=== PATIENT | male | born 1955 | race Caucasian/White ===

== ENCOUNTER 2022-05-09 06:28 | Outpatient (REF) | payer MEDICARE, SELFPAY ==
[2022-05-09 06:43] LABS: Hematocrit 27.7 % (42.0-52.0); Mean Corpuscular HGB Conc 32.5 g/dl (31.0-36.0); Mean Corpuscular Hemoglobin 31.7 pg (27.0-33.0); Mean Corpuscular Volume 97.5 fL (80.0-98.0); Mean Platelet Volume 9.9 fL (9.4-12.4); Platelet Count 256 X10*3/uL (160-400); Red Blood Count 2.84 X10*6/uL (4.60-5.80); Red Cell Distribution Width 16.4 % (11.0-16.0); White Blood Count 23.4 X10*3/uL (4.8-10.8)
[2022-05-09 07:34] LABS: Anion Gap 18 (12-20); Blood Urea Nitrogen 30 mg/dL (9-16); Calcium 8.2 mg/dL (8.4-10.2); Carbon Dioxide 24 mmol/L (22-29); Chloride 91 mmol/L (96-108); Estimated Glomerular Filt Rate 18; Sodium 130 mmol/L (135-145)
[2022-05-09 07:43] LABS: Glucose Random 28 mg/dL (60-115)
== END 2022-05-09 06:29 | disposition home or self-care (01) ==
LOC: HO.MMNH1L 06:28
PROVIDERS: Visit Provider Family Medicine
DX: I48.91 Unspecified atrial fibrillation (principal)
CPT/HCPCS: 36415; 80048; 85027

== ENCOUNTER 2022-05-23 07:29 | Outpatient (REF) | payer MEDICARE, SELFPAY | END 2022-05-23 07:30 | disposition home or self-care (01) | LOC: HO.MMNH1L 07:29 | PROVIDERS: Visit Provider Family Medicine | DX: Z13.89 Encounter for screening for other disorder (principal) ==

== ENCOUNTER 2022-07-11 05:19 | Inpatient (IN) | payer MEDICARE, OTHER, SELFPAY ==
[2022-07-11] VITALS (7 sets, daily range): BP systolic 82–116; BP diastolic 56–67; PULSE 100–119; RESP 13–20; TEMP 35.8–36.5; O2SAT 94–100; BMI 23.7
--- NOTE | 2022-07-11 | ECG_ITS ---
Test Reason : CHEST PAIN Blood Pressure : / mmHG Vent. Rate : 117 BPM Atrial Rate : 000 BPM P-R Int : 000 ms QRS Dur : 100 ms QT Int : 362 ms P-R-T Axes : 000 030 246 degrees QTc Int : 504 ms Atrial fibrillation with rapid ventricular response Low voltage QRS Intra-ventricular conduction delay Nonspecific ST and T wave abnormality Abnormal ECG No previous ECGs available Referred By: Generic ED Physician Electronically Signed By:CONSUELO FULTON MD
--- NOTE | ~2022-07-11 | CT_ITS ---
EXAMINATION: CT ABDOMEN AND PELVIS WITHOUT CONTRAST CLINICAL INFORMATION: Ostomy malfunction COMPARISON: None TECHNIQUE: Multidetector volumetric imaging was performed from the superior aspect of the liver through the pubic symphysis. Sagittal and coronal reformatted images were obtained on the technologist's workstation. This CT examination was performed using dose optimization techniques as appropriate, variously including the following: *Automated exposure control *Adjustment of mA and/or kV according to patient size (this includes techniques or standardized protocols for targeted exams where dose is matched to indication/reason for exam; i.e. extremities or head) *Use of iterative reconstruction technique DLP: 873 mGy-cm FINDINGS: Visualized lung bases demonstrate trace bilateral pleural effusions with overlying atelectasis. Cardiac lead partially visualized. The liver is normal in size but demonstrates diffusely decreased attenuation. Several tiny gallstones are are noted dependently within an otherwise unremarkable appearing gallbladder. The pancreas, spleen and adrenal glands are unremarkable. Symmetrically sized kidneys. No renal calculi or hydronephrosis bilaterally. Subcentimeter cyst of the right kidney. Mildly distended and debris-filled stomach. Loops of small bowel are normal in caliber. There is a moderate stool burden within the proximal and mid colon. There is an ostomy noted within the left lower abdomen which is unremarkable in appearance. There is no CT evidence to suggest an obstructive picture. The distal colon is decompressed. There is some mild diverticular changes of the sigmoid colon without CT evidence to suggest active diverticulitis. Mild stool burden within the rectal vault. Normal caliber abdominal aorta which demonstrates moderate to severe atherosclerotic disease. Diffuse subcutaneous anasarca. The bladder is decompressed around a Cote catheter and therefore not accurately evaluated. Trace amount of free pelvic fluid, nonspecific. No inguinal lymphadenopathy. Diffuse osteopenia. Moderate degenerative changes of the spine. CT/CT abdomen pelvis wo IV con IMPRESSION: -Normal caliber loops of small bowel with a moderate stool burden noted within the proximal and mid colon. Ostomy noted within the left lower abdomen. No CT evidence to suggest an obstructive picture. -Diffusely decreased liver attenuation suggesting hepatic steatosis. -Cholelithiasis. Fleischner guidelines were followed.
--- NOTE | ~2022-07-11 | XR_ITS ---
EXAMINATION: XR CHEST CLINICAL INFORMATION: Shortness of breath COMPARISON: Chest x-ray 07/11/2022 TECHNIQUE: Frontal view of the chest was obtained. FINDINGS: Right IJ central venous catheter tip terminates in the distal SVC. A right IJ dual-lumen catheter terminates in the proximal right atrium, both unchanged. Mild blunting of the costophrenic angles consistent with small pleural effusions, right minimally larger than left. No dense airspace consolidation. No pneumothorax. Unchanged cardiomediastinal silhouette. Prominence of the pulmonary vascular markings consistent with pulmonary vascular congestion possible early/mild interstitial edema. Intact sternal wires and left-sided single chamber pacer/AICD with lead tip projecting over the right ventricle. No acute osseous injury. XR/XR chest 1V IMPRESSION: 1. Pulmonary vascular congestion/possible mild interstitial edema. 2. Small bilateral pleural effusions, right slightly larger than left. 3. No dense airspace consolidation.
--- NOTE | ~2022-07-11 | XR_ITS ---
EXAMINATION: XR CHEST CLINICAL INFORMATION: Status post OG tube placement COMPARISON: Chest x-ray 07/24/2022 TECHNIQUE: Frontal view of the chest was obtained. FINDINGS: Endotracheal tube tip terminates approximately 4.2 cm above the jarred. Right IJ dual-lumen catheter tip terminates in the proximal right atrium. Right IJ central venous catheter is followed into the distal SVC at the cavoatrial junction. Enteric tube extends below the diaphragm, coiled in the gastric fundus. The distal tip is not included in the [id number]. External defibrillator pads overlie the left lower hemithorax. Lower lateral left hemithorax is clipped from the [id number]. No airspace consolidation or pneumothorax. Minimal right basilar pleural thickening versus trace effusion. Small amount of right fissural fluid. Unchanged cardiomediastinal silhouette. Status post median sternotomy. Intact sternal wires. No evidence of pulmonary edema. Left sided AICD with lead tip projecting in the right ventricle. No acute osseous injury. XR/XR chest 1V IMPRESSION: 1. Endotracheal tube tip terminates 4.2 cm above the jarred. 2. Enteric tube extends below the diaphragm, distal tip not included in the [id number]. 3. 2 right IJ lines, as above. 4. Small right pleural effusion versus pleural thickening.
--- NOTE | ~2022-07-11 | CT_ITS ---
EXAMINATION: CT CHEST, ABDOMEN AND PELVIS WITH CONTRAST CLINICAL INFORMATION: Hypoxia status post CPR. Gastric distention with elevated lactate. COMPARISON: CT abdomen of July 14, 2022 TECHNIQUE: Multidetector volumetric imaging was performed from the thoracic inlet through the pubic symphysis following administration of oral and intravenous contrast of 85 mL of Omnipaque 350 intravenous contrast. Sagittal and coronal reformatted images were obtained on the technologist workstation. DLP: 1260.62 mGy-cm. FINDINGS: CHEST: Lungs: Endotracheal tube seen in place. Central airways are patent. Bronchial wall thickening is seen within the right lower lobe. No bronchiectasis. There is some bibasilar lower lobe disease likely related to dependent atelectasis. Calcified granuloma is present. Focus of nonspecific groundglass opacity seen within the right upper lobe there is a 6 mm subpleural density seen within the right lower lobe on image [address] series #7. There is some changes of paraseptal emphysema within the lung apices. No pneumothorax. Mediastinum: Endotracheal tube seen in place. Right internal jugular central venous catheter within the right atrium. Pacemaker lead in place. Mild coronary artery calcifications present. Heart normal size. No pericardial effusion identified. No septal bowing is noted. No mediastinal or hilar lymphadenopathy. There is mild hazy density about the. Vascular space without evidence of major vessel injury. No thoracic aortic aneurysm or dissection. Arch vessels appear unremarkable. Pleura: There are small bilateral pleural effusions. Chest Wall/Axilla: Anasarca is present. No axillary lymphadenopathy is appreciated. Status post median sternotomy without sternal fracture appreciated. Left-sided pacemaker powerpack in place.. There are rib fractures present which will be described under the osseous structures segment. ABDOMEN/PELVIS: Liver, Gallbladder, Biliary Tree: The liver is normal in size, shape, and attenuation. No focal hepatic lesion or biliary ductal dilatation is present. Cholelithiasis is present. The gallbladder is distended. No pericholecystic fluid is appreciated. Pancreas: Unremarkable. No definite mass or significant peripancreatic inflammatory change. Spleen: Artifact present. I cannot rule out splenic laceration due to the artifact being present. There is fat streaking seen with small amount of free fluid seen along the left lateral conal fascia. Adrenal Glands: Unremarkable. Kidneys and Ureters: No hydronephrosis evident. No cortical thinning. No calculi are seen. Right renal cysts are present. No definite ureteral abnormalities appreciated. Bladder: Urinary bladder is decompressed with Cote catheter in place. Gastrointestinal Tract: The stomach is very distended. No free air is identified. There is a small amount of free fluid seen as well as stranding was then mesenteric and retroperitoneal fat. Left lower quadrant ostomy appears unremarkable. Appendix is not appreciated. Abdominal Wall: Left lower quadrant ostomy. Lymph Nodes: No lymphadenopathy appreciated. Vascular: There is moderate aortoiliac calcified plaque present. No abdominal aortic aneurysm. Portal vein patent. Pelvic Viscera: There is some free fluid. No abnormal pelvic mass is appreciated. Osseous Structures: There is osteopenia visualized bones. There are regions of diminished bony density with lytic appearance but no bony destruction which may be related to the osteopenia within the femoral heads bilaterally. There are changes of enthesopathy present. There is ankylosis of the sacroiliac joints bilaterally. There is degenerative disc disease at the L5-S1 level. There are nondisplaced fractures seen involving anterior aspect of the left fourth rib, left sixth rib, left seventh rib, separation of cartilage at the left eighth rib level, and anterior right seventh rib. There is some regions of mild bony density about the dorsal aspect of some ribs left greater than right which may be related to osteopenia. Infiltrative process of other etiology not excluded. No periosteal new bone formation is identified. CT/CT abdomen pelvis w IV con IMPRESSION: Small bilateral pleural effusions with multiple rib fractures as described above. Anasarca and diffuse fat streaking within the mesentery and retroperitoneal fat as well. Cholelithiasis without evidence of acute cholecystitis. Poorly evaluated spleen and splenic laceration is not excluded. Ultrasound would be of help in further evaluation of this. Small amount of free fluid within the abdomen and pelvis. Old granulomatous disease. 6 mm right lower lobe nodule. According to the UPDATED 2017 Fleischner Society recommendations, the advised follow-up imaging for a single 6-8 mm solid nodule is: LOW RISK PATIENT: CT at 6-12 months, then consider CT at 18-24 months. HIGH RISK PATIENT: CT at 6-12 months, then at 18-24 months.
--- NOTE | ~2022-07-11 | XR_ITS ---
EXAMINATION: XR CHEST CLINICAL INFORMATION: chest pain COMPARISON: None TECHNIQUE: Frontal view of the chest was obtained. FINDINGS: Right IJ dual-lumen dialysis catheter tip terminates in the right atrium. Right IJ central venous catheter tip terminates over the cavoatrial junction. Left pectoral AICD lead tip terminates over the right ventricle. Sternal wires and surgical clips overlie the cardiac mediastinal silhouette. EKG leads overlie the chest. Chronic silhouette is at the upper limits of normal in size. Pulmonary vasculature is normal. No consolidation, pneumothorax, or pleural effusion. No acute osseous findings. XR/XR chest 1V IMPRESSION: 1. No acute pulmonary disease. 2. Support lines as above.
--- NOTE | ~2022-07-11 | CT_ITS ---
EXAMINATION: CT CHEST, ABDOMEN AND PELVIS WITHOUT CONTRAST CLINICAL INFORMATION: Question of intra-abdominal hemorrhage and pneumonia COMPARISON: 07/27/2022 chest radiograph, CT chest abdomen pelvis 07/24/2020 TECHNIQUE: Multidetector volumetric imaging was performed from the thoracic inlet through the pubic symphysis . Sagittal and coronal reformatted images were obtained on the technologist's workstation. This CT examination was performed using dose optimization techniques as appropriate, variously including the following: *Automated exposure control *Adjustment of mA and/or kV according to patient size (this includes techniques or standardized protocols for targeted exams where dose is matched to indication/reason for exam; i.e. extremities or head) *Use of iterative reconstruction technique DLP: 1211 mGy-cm FINDINGS: CHEST: Lungs and Pleura: No pneumothorax is seen. Bibasilar patchy densities are seen in [id number]-type pattern along with Tree-in-bud opacities present in the right upper lobe posteriorly consistent with inflammatory disease. All of the above-mentioned changes are new when compared to the 07/24/2022 CT scan. Again noted is a tiny right pleural effusion, decreased since prior, and a trace left pleural effusion. Mild thickening in the right major fissure. A calcified granuloma is present in the left upper lobe. Mediastinum: The heart is enlarged. A single lead left chest wall pacemaker is present. No mediastinal or hilar lymphadenopathy is seen. Significant coronary calcifications are present. No pericardial effusion. ET tube position well above the jarred. Right IJ catheter with tip at SVC/RA junction. Chest Wall/Axilla: Status post median sternotomy ABDOMEN/PELVIS: Liver, Gallbladder, Biliary Tree: The liver is normal in size, shape, and attenuation. No focal hepatic lesion or biliary ductal dilatation is present. Cholelithiasis is present. The gallbladder is distended. No pericholecystic fluid is appreciated. Pancreas: Unremarkable. No definite mass or significant peripancreatic inflammatory change. Spleen: Significant artifact obscures portion of the spleen. No abnormality is seen. Adrenal Glands: Unremarkable. Kidneys and Ureters: No hydronephrosis evident. No cortical thinning. No calculi are seen. Right renal cysts are present. No ureteral abnormalities appreciated. Bladder: Urinary bladder is decompressed with Cote catheter in place. Gastrointestinal Tract: The stomach is very distended. No free air is identified. There is a small amount of free fluid seen as well as stranding was then mesenteric and retroperitoneal fat. Left lower quadrant ostomy appears unremarkable. Appendix is not appreciated. Abdominal Wall: Left lower quadrant ostomy. Lymph Nodes: No lymphadenopathy appreciated. Vascular: There is moderate aortoiliac calcified plaque present. No abdominal aortic aneurysm. Portal vein patent. Pelvic Viscera: There is significant increased pelvic fluid compared with the prior study. The fluid measures water density and there is no evidence of intra-abdominal/intrapelvic hemorrhage. No abnormal pelvic mass is appreciated. Osseous Structures: Again seen is osteopenia and degenerative changes. Again seen are left-sided rib fractures previously described CT/CT abdomen pelvis wo IV con IMPRESSION: New bilateral lower lobe infiltrates along with tree-in-bud inflammatory opacities in the right upper lobe. Cholelithiasis without evidence of acute cholecystitis. Increase in amount of free fluid within the abdomen and pelvis.
--- NOTE | ~2022-07-11 | XR_ITS ---
EXAMINATION: XR CHEST CLINICAL INFORMATION: Endotracheal tube. COMPARISON: Chest radiograph 07/27/2022 TECHNIQUE: Frontal view of the chest was obtained. FINDINGS: An endotracheal tube terminates 4 cm superior to the jarred. Enteric tube courses within the stomach beyond the inferior margin of the [id number]. A right internal jugular dual lumen catheter terminates in projection with the right atrium. A left subclavian catheter terminates in the region of the superior vena cava. A left pectoral pacer is noted. Multiple unfractured median sternotomy wires visualized. The heart size is normal. Mild blunting of left costophrenic sulcus. No pneumothoraces. Low lung volumes are identified. XR/XR chest 1V IMPRESSION: *Radiographically satisfactory configuration of multiple lines and tubes. *Trace left pleural effusion.
--- NOTE | ~2022-07-11 | XR_ITS ---
EXAMINATION: XR CHEST CLINICAL INFORMATION: Central line placement confirmation. COMPARISON: July 24, 2022. TECHNIQUE: Portable AP view of the chest was obtained. XR/XR chest 1V FINDINGS/IMPRESSION: The study is limited by portable technique, low lung volumes, and overlying leads. The tip of a new left internal jugular presumed central venous line projects over the expected location of the superior vena cava. Otherwise, there has been no significant radiographic change compared with one day prior. No pneumothorax or effusion is seen. No acute infiltrate is noted. Previously seen lines, tubes, and hardware appear unchanged.
--- NOTE | ~2022-07-11 | XR_ITS ---
EXAMINATION: AP PORTABLE CHEST AND KUB. CLINICAL INFORMATION: CHEST PAIN WITH NAUSEA VOMITING AND CONSTIPATION. COMPARISON: July 20, 2022 chest and abdomen of July 20, 2022 TECHNIQUE: AP portable chest and KUB. FINDINGS: AP portable view of the chest does not demonstrate any evidence of acute parenchymal disease, pneumothorax, or pleural effusion. There is pleural thickening seen about the right lateral chest wall. A right subclavian central venous catheter is seen with its tip in the distal superior vena cava. A large bore dialysis right internal jugular catheter seen with its tip within the upper right atrium. Pacemaker is seen in place. Patient status post median sternotomy and CABG. Heart normal size. No evidence of pulmonary edema. Film of the abdomen demonstrates a large amount of stool within the right and transverse colon. Gas is noted within the rectum. No pneumatosis intestinalis is seen. No definite dilated loops of small bowel evident. There are changes of enthesopathy about the pelvis. Prominent splenic artery calcifications are noted. XR/XR chest 1V IMPRESSION: No acute disease within the chest. Large amount of stool within the right and transverse colon.
--- NOTE | ~2022-07-11 | XR_ITS ---
EXAMINATION: XR ABDOMEN KUB CLINICAL INDICATION: Vomiting COMPARISON: CT abdomen and pelvis 07/14/2022 TECHNIQUE: AP view of the abdomen. FINDINGS: Marked gaseous distention of the stomach. No other dilated air-filled bowel loops. Moderate to large amount of formed stool located in the right colon. Small amount of gas in the region of the rectum. No gross large free air on this limited supine exam. No appreciable bowel wall thickening. No pneumatosis or portal venous gas. Catheter projects over the low pelvis. Patient is somewhat rotated. No acute osseous injury. Mild bilateral hip joint osteoarthritis and disc degenerative changes in the lumbar spine are seen. Left lower quadrant ostomy. XR/XR abdomen 1V IMPRESSION: 1. Marked gaseous distention of the stomach. Consider NG tube decompression as clinically indicated. 2. No other dilated air-filled bowel loops. 3. Moderate to large amount of formed stool in the right colon.
--- NOTE | ~2022-07-11 | XR_ITS ---
EXAMINATION: XR CHEST CLINICAL INFORMATION: Feed tube placement. COMPARISON: Chest radiograph 07/25/2022. TECHNIQUE: Frontal view of the chest was obtained. FINDINGS: An enteric tube terminates in the stomach. Single lead left-sided pacer/AICD projecting over the right ventricle. Large bore right CVC terminates in the proximal right atrium. Left-sided CVC terminates in the cavoatrial junction. Sternal wires are noted. EKG wires overlie the chest. The endotracheal tube terminates at 3 cm above the jarred. Included portions of the bowel in the upper abdomen with a nonobstructive bowel gas pattern. Small left-sided pleural fluid, new compared to 07/25/2022. XR/XR chest 1V IMPRESSION: 1. Enteric tube terminating in the stomach. 2. Small left-sided pleural fluid, new compared to 07/25/2022.
--- NOTE | ~2022-07-11 | US_ITS ---
EXAMINATION: US VENOUS ULTRASOUND WITH DOPPLER LOWER EXTREMITY, BILATERAL CLINICAL INFORMATION: Rule out DVT/edema COMPARISON: None TECHNIQUE: Ultrasound of the deep veins is performed from the hip to the calf with compression sonography and color and pulse Doppler assessment. Spectral analysis with color-flow imaging is performed. FINDINGS: RIGHT: There is normal venous compression and respiratory variation and augmented flow. The visualized common femoral vein, superficial femoral vein, profunda femoral vein, popliteal vein, and the trifurcation region shows no evidence of deep venous thrombosis. There is no significant popliteal fossa cyst. LEFT: There is normal venous compression and respiratory variation and augmented flow. The visualized common femoral vein, superficial femoral vein, profunda femoral vein, popliteal vein, and the trifurcation region shows no evidence of deep venous thrombosis. There is no significant popliteal fossa cyst. If the patient's symptoms persist, followup ultrasound in 5 days 7 days might be of value to exclude proximal propagation from a non-visualized calf vein. Extensive soft tissue swelling throughout the bilateral lower extremities. US/US venous duplex LE BI IMPRESSION: No DVT demonstrated in the bilateral lower extremities.
--- NOTE | ~2022-07-11 | XR_ITS ---
EXAMINATION: AP PORTABLE CHEST AND KUB. CLINICAL INFORMATION: CHEST PAIN WITH NAUSEA VOMITING AND CONSTIPATION. COMPARISON: July 20, 2022 chest and abdomen of July 20, 2022 TECHNIQUE: AP portable chest and KUB. FINDINGS: AP portable view of the chest does not demonstrate any evidence of acute parenchymal disease, pneumothorax, or pleural effusion. There is pleural thickening seen about the right lateral chest wall. A right subclavian central venous catheter is seen with its tip in the distal superior vena cava. A large bore dialysis right internal jugular catheter seen with its tip within the upper right atrium. Pacemaker is seen in place. Patient status post median sternotomy and CABG. Heart normal size. No evidence of pulmonary edema. Film of the abdomen demonstrates a large amount of stool within the right and transverse colon. Gas is noted within the rectum. No pneumatosis intestinalis is seen. No definite dilated loops of small bowel evident. There are changes of enthesopathy about the pelvis. Prominent splenic artery calcifications are noted. XR/XR abdomen 1V IMPRESSION: No acute disease within the chest. Large amount of stool within the right and transverse colon.
[2022-07-11 05:45] LABS: MANUAL DIFF FLAG NO
[2022-07-11 05:46] LABS: Basophils Percent Auto 0.2 % (0-2); Eosinophils Absolute Auto 0.1 X10*3/uL (0.0-0.4); Eosinophils Percent Auto 0.5 % (0-4); Hematocrit 28.9 % (42.0-52.0); Hemoglobin 9.2 g/dl (14.0-18.0); Imm Gran Abs Auto 0.08 X10*3/uL (0.00-0.03); Imm Gran Pct Auto 0.6 % (0.0-0.4); Lymphocytes Absolute Auto 0.8 X10*3/uL (1.2-4.9); Lymphocytes Percent Auto 6.1 % (20-40); Mean Corpuscular HGB Conc 31.8 g/dl (31.0-36.0); Mean Corpuscular Hemoglobin 31.1 pg (27.0-33.0); Mean Corpuscular Volume 97.6 fL (80.0-98.0); Mean Platelet Volume 9.4 fL (9.4-12.4); Monocytes Percent Auto 7.4 % (2-11); Neutrophils Absolute Auto 11.1 x10*3/uL (2.0-8.3); Neutrophils Percent Auto 85.2 % (45-73); Platelet Count 305 X10*3/uL (160-400); Red Blood Count 2.96 X10*6/uL (4.60-5.80); Red Cell Distribution Width 17.5 % (11.0-16.0)
[2022-07-11] MEDS: 0.9 % Sodium Chloride 500 ML IV ×2 (05:48→18:52)
[2022-07-11 06:02] LABS: Anion Gap 15 (12-20); Blood Urea Nitrogen 45 mg/dL (9-16); Calcium 7.2 mg/dL (8.4-10.2); Carbon Dioxide 23 mmol/L (22-29); Chloride 91 mmol/L (96-108); Creatinine Clr Calc Pharmacy 36.2; Estimated Glomerular Filt Rate 26; Glucose Random 409 mg/dL (60-115); Potassium 4.3 mmol/L (3.3-5.1); Sodium 125 mmol/L (135-145)
[2022-07-11 06:07] LABS: Troponin-I High Sensitivity 19.4 ng/L (<3.5-35.0)
--- OUTSIDE RECORDS SUMMARY | 2022-07-11 06:19 | XMS_ITS | Encounter Summary ---
:1955 Author Care Team Providers Name Role Phone Lamont Chris MD Primary Care Provider [phone] [facility] 1st Floor OTHER [phone] Reason for Visit Acute Rounding Visit Assessment and Plan 1. Pressure injury of sacral region of back Continue local care as ordered. cefazolin 2 mg iv TTS after dialysis to 06/21 vancomycin 750 mg iv TTS after dialysis to 06/21 fluconazole 400 mg TTS after dialysis to 06/21 probiotic bid oxycodone 5 mg q 6 hrs prn for pain, or 10 mg q6hr prn Wound care consult. Monitor for healing. 2. End-stage renal disease HD 3x week monitor permacath 3. Asthenia PT OT eval and treat fall precautions frequent safety checks 4. COVID-19 06/07 covid positive encourage fluids consider ivf for anorexia consider decadron for sob send to ED for decompensation Discussion Note: None recorded.Patient educational handouts: No information available. Plan of Care Reminders Provider Appointments None recorded. ? ? Lab None recorded. ? ? Referral None recorded. ? ? Procedures None recorded. ? ? Surgeries None recorded. ? ? Imaging None recorded. ? ? Medications Name Start Date ? ? fentanyl 12 mcg/hr transdermal patch ? Apply 1 patch every 72 hours by transdermal route in the morning. Notes: meds reviewed, see MAR for comp lete list Medications Administered None recorded. Vitals Height Weight BMI Blood Pressure 6 ft 6 in 202.4 lbs 23.4 kg/m2 117/67 mm[Hg] Results Lab Results None recorded. Allergies Code Code System Name Reaction Severity Onset 552520 RxNorm Bactrim ? ? ? Problems Name Status Onset Date Source ? Type 2 Diabetes Mellitus Active 04/15/2022 ? Hyperlipidemia Active 04/15/2022 ? Anemia Active 04/15/2022 ? Neuropathy Active 04/15/2022 ? Cardiomyopathy Active 04/15/2022 ? Atrial Fibrillation Active 04/15/2022 ? Chronic Kidney Disease Stage 4 Active 04/15/2022 ? End-stage Renal Disease Active 04/15/2022 ? Asthenia Active 04/15/2022 ? Coronary Arteriosclerosis Active 04/21/2022 ? Pressure Injury of Sacral Region of Back Active 022 ? Low Blood Pressure Active 04/28/2022 ? Sepsis Active 05/09/2022 ? Covid-19 Active 06/10/2022 ? Pressure Injury Stage IV Active 06/25/2022 ? Colostomy Active 06/25/2022 ? 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 Insomnia Active 06/30/2022 ? Congestive Heart Failure Active 06/30/2022 ? Procedures Notes: right permacath, CARDIAC CATHET ERIZATION 02/19/2013 CARDIAC DEFIBRILLATOR PLACEMENT 10/2013 CARDIAC DEFIBRILLATOR PLACEMENT CATARACT EXTRACTION CATARACT EXTRACTION, BILATERAL Bilateral 2017 Slick Brewer CORONARY ARTERY BYPASS GRAFT X2 vessels HERNIA REPAIR NASAL SEPTUM SURGERY Vaccine List Vaccine Type COVID-19, mRNA, LNP-S, PF, 100 mcg/0.5 m L dose (Moderna) 09/02/2020 09/30/2020 07/14/2021 Hep B, adult 01/27/2021 03/15/2021 08/05/2021 influenza, high-dose, quadrivalent 06/08/2020 08/11/2020 influenza, injectable, quadrivalent 05/24/2021 06/08/2022 pneumococcal conjugate PCV 13 07/04/2019 pneumococcal polysaccharide PPV23 10/18/2012 Tdap 10/18/2012 10/10/2020 zoster recombinant 08/11/2020 Social History Tobacco Smoking Status Former Smoker Notes: quit 200 3 Has tobacco cessation counseling N Notes: n/a as pt no longer been provided? smokes What is your code status? Full Code Do you have a medical power of Y sports broadcaster? What was the date of your most 04/21/2022 recent tobacco screening? Do you have an advanced Y directive? Do you use any illicit or N recreational drugs? [facility], has flight of stairs but now matamoros s a stair lift What is your relationship status? Notes : Was in 2001, then had new relatio nship and broke up, so not act ually . What is your level of alcohol Moderate Notes: o ne beer/day consumption? How many times per week do you 5-7 times per week consume alcohol? Legal Guardian? N Do you have an out of hospital N DNR? Do you or have you ever used any N other forms of tobacco or nicotine? Have you ever been counseled for N unhealthy alcohol use? Functional Status Unknown. Past Encounters 06/10/2022 Pressure Injury of Sacral Region of Back ; End-stage Renal Disease; Asthenia; Covid-19 Marielos Alvarez POLICY WRITER: [address] [place] [address], Ph. 06/08/2022 Asthenia; End-stage Renal Disease; Coron tad Arteriosclerosis; Type 2 Diabetes Mellitus; Chronic Osteomyelitis of Sacrum; Orthostatic Hypotension; Hyperlipidemia; Chronic Pain; Covid-19 Bethany Cabrera MD: [address] [place] [address], Ph. 06/06/2022 Pressure Injury of Sacral Region of Back ; Coronary Arteriosclerosis Marielos Alvarez POLICY WRITER: [address] [place] [address], Ph. 06/03/2022 Pressure Injury of Sacral Region of Back ; Sepsis; End-stage Renal Disease; Atrial Fibrillation; Cardiomyopathy; Hyperlipidemia; Neuropathy; Type 2 Diabetes Mellitus; Chronic Kidney Disease Stage 4; Asth enia; Anemia; Low Blood Pressure; Hooks ry Arteriosclerosis Marielos Alvarez POLICY WRITER: [address] [place] [address], Ph. History of Present Illness Note: <div>seen today for acute rounding visit-CAOx3 lying in bed, orders to be put in to get him oob 2xday minimum, he is a mckenzie lift to chair, PT aware and Elizabeth nurse central supply manager aware of his concerns regarding this, lungs clear</div>Review of Systems: ROS as noted in the HPI Review of Systems None recorded. Physical Exam ? General Adult Exam Reported By: Patient Constitutional: General Appearance: well-dev eloped. Level of Distress: NAD. Ambulation: ambulation with walker, in wheelchair; min assist with ambulation, at baseline used devices prn; in bed at time of visit Psychiatric: Insight: good judgement. Men ryland Status: active and alert, normal mood, normal affect. Orienta tion: to time, to place, to person. Memory: recent memory normal , remote memory normal Head: Head: normocephalic, atrauma tic Eyes: Lids and Conjunctivae: non-i njected. Sclerae: non-icteric ENMT: Hearing: no hearing loss. Or opharynx: moist mucous membranes Lungs: Auscultation: breath sounds normal, good air movement, no wheezing, no rales/crackles, no rhonch i Cardiovascular: Heart Auscultation: irregula rly irregular Abdomen: Bowel Sounds: normal, soft, no tenderness Musculoskeletal:: Extremities: no cyanosis, ed rashid; 2+ BLE, DAYAN stockings/tomi wraps Neurologic: Cranial Nerves: grossly inta ct Skin: Inspection and palpation: no rash, ulcer Notes: <div>03/22 5wbc 8.7 h/h 8.2/25 .1 plt 197 na 127 k 4.1 bun 47 creat 3.6 </div><div>04/18-WBC-7.2, H/H-8.0/24.6, plts-249, BUN/Cr-59/4.62, GFR-13, Na+1 25, K+4.6, glu-540</div><div>04/26 wbc 11.2 h/h 8.5/25.8 plt 269 na 124 k 4.1 bun 53 creat 4.08 gfr 15 HD aware</div><div>05/02 wbc 9.7 h/h 8.6/26.7 plt 259 na 129 k 3.2 bun 26 creat 2.99 gfr 21</div><d iv>05/09 wbc 23.4 h/h 9.0/27.7 plt 256 na 130 k 3.0 bun 30 creat 3. 36 gfr 18</div><div>
</div><d iv>06/03wbc 15.2 h/h 8.1/25 plt 343 na 127 k 4.1 bun 34 creat 2.81 gfr 23</div><div>06/06 wbc 13.2 h/h 7.8/24.5 plt 342 na 126 k 3. 9 bun 33 creat 3.09 gfr 20</div><div>/ wbc 16 .9 h/h 8.6/27.1 plt 284 na 127 k 3.7 bun 40 creat 3.34 gfr 18</di v>
--- OUTSIDE RECORDS SUMMARY | 2022-07-11 06:19 | XMS_ITS ---
:1955 Author Care Team Providers Name Role Phone [facility] 1ST FLOOR OTHER [phone] ENRIQUE GRANADOS MD Primary Care Provider [phone] Allergies Code Code System Name Reaction Severity Status Onset [id number] RxNorm Bactrim ? ? Active ? Medications Name Status Start Date Stop Date ? ? fentanyl 12 mcg/hr transdermal patch Active ? Not available Apply 1 patch every 72 hours by transdermal route in the [place]. Notes: meds reviewed, see MAR for comp lete list Problems Name Status Onset Date Source ? [...] PLACEMENT CATARACT EXTRACTION CATARACT EXTRACTION, BILATERAL Bilateral 2018 Slick Brewer CORONARY ARTERY BYPASS GRAFT X2 vessels HERNIA REPAIR NASAL SEPTUM SURGERY Results Lab Results None recorded. Past Encounters 07/01/2022 Pressure Injury Stage IV; End-stage Aby l Disease Marielos Alvarez CURB ATTENDANT: [address] , [place] [address], Ph. 06/30/2022 Pressure Injury Stage IV; Osteomyelitis of Sacrum; Colostomy Present; Asthenia; End-stage Renal Disease; Cardiomyopathy; Congestive Heart Failure; Coronary Arteriosclerosis; Atrial Fibrillation; Type 2 Diabetes Mellitus; Hyponatremia; Orthost atic Hypotension; Hyperlipidemia; Covid- 19; Anemia; Neuropathy; Insomnia Autumn eKrr MD: [address] [place] [address], Ph. 06/29/2022 Pressure Injury Stage IV Marielos Alvarez CURB ATTENDANT: [address] [place] [address], Ph. 06/27/2022 Pressure Injury Stage IV; Colostomy Pres ent; Asthenia; End-stage Renal Disease; Coronary Arteriosclerosis; Type 2 Diabetes Mellitus; Orthostatic Hypotension; Hyperlipidemia; Chronic Pain; Covid-19; Atrial Fibrillation; Anemia Marielos Alvarez CURB ATTENDANT: [address] [place] [address], Ph. 06/25/2022 Pressure Injury Stage IV; Colostomy Pres ent; Asthenia; End-stage Renal Disease; Coronary Arteriosclerosis; Type 2 Diabetes Mellitus; Orthostatic Hypotension; Hyperlipidemia; Chronic Pain; Covid-19; Atrial Fibrillation; Anemia Minerva Bolden CURB ATTENDANT: [address] [place] [address], Ph. 06/15/2022 Covid-19; Pressure Injury of Sacral Neyda on of Back Marielos Alvarez CURB ATTENDANT: [address] [place] [address], Ph. 06/13/2022 Pressure Injury of Sacral Region of Back ; Asthenia Marielos Alvarez CURB ATTENDANT: [address] [place] [address], Ph. 06/10/2022 Pressure Injury of Sacral Region of Back ; End-stage Renal Disease; Asthenia; Covid-19 Marielos Alvarez CURB ATTENDANT: [address] [place] [address], Ph. 06/08/2022 Asthenia; End-stage Renal Disease; Coron tad Arteriosclerosis; Type 2 Diabetes Mellitus; Chronic Osteomyelitis of Sacrum; Orthostatic Hypotension; Hyperlipidemia; Chronic Pain; Covid-19 Bethany Cabrera MD: [address] [facility] [place] [address], Ph. 06/06/2022 Pressure Injury of Sacral Region of Back ; Coronary Arteriosclerosis Marielos Alvarez CURB ATTENDANT: [address] [place] [address], Ph. 06/03/2022 Pressure Injury of Sacral Region of Back ; Sepsis; End-stage Renal Disease; Atrial Fibrillation; Cardiomyopathy; Hyperlipidemia; Neuropathy; Type 2 Diabetes Mellitus; Chronic Kidney Disease Stage 4; Asth enia; Anemia; Low Blood Pressure; Hooks ry Arteriosclerosis Marielos A Anotnio, CURB ATTENDANT: [address] [place] [address], Ph. 05/09/2022 Low Blood Pressure; Sepsis Marielos Alvarez, CURB ATTENDANT: [address] [place] [address], Ph. 05/04/2022 Chronic Kidney Disease Stage 4; Neuropat hy; Asthenia Marielos Alvarez, CURB ATTENDANT: [address] [place] [address], Ph. 05/02/2022 Pressure Injury of Sacral Region of Back ; End-stage Renal Disease; Low Blood Pressure Marielos Alvarez CURB ATTENDANT: [address] [place] [address], Ph. 04/28/2022 Low Blood Pressure; Pressure Injury of S acral Region of Back; Chronic Kidney Disease Stage 4 Marielos Alvarez, CURB ATTENDANT: [address] [place] [address], Ph. 04/26/2022 Type 2 Diabetes Mellitus; Chronic Kidney Disease Stage 4; Pressure Injury of Sacral Region of Back Marielos Alvarez CURB ATTENDANT: [address] [place] [address], Ph. 04/21/2022 Cardiomyopathy; Congestive Heart Failure ; End-stage Renal Disease; Asthenia; Hyponatremia; Type 2 Diabetes Mellitus; Pressure Injury of Sacral Region of Back; Neuropathy; Atrial Fibrillation; Hyperlipid emia; Anemia; Insomnia; Coronary Arterio sclerosis Autumn Kerr MD: [address] [facility], [place] [address], Ph. 04/20/2022 Neuropathy; Chronic Kidney Disease Stage 4; Asthenia Marielos Alvarez CURB ATTENDANT: [address] [facility] , [place] [address], Ph. 04/15/2022 End-stage Renal Disease; Atrial Fibrilla tion; Cardiomyopathy; Hyperlipidemia; Neuropathy; Type 2 Diabetes Mellitus; Chronic Kidney Disease Stage 4; Asthenia; Anemia Marielos Alvarez, CURB ATTENDANT: [address] [facility] , [place] [address], Ph. Social History Tobacco Smoking Status Former Smoker Notes: quit 200 3 Vaccine List Vaccine Type COVID-19, mRNA, LNP-S, PF, 100 mcg/0.5 m L dose (Moderna) 09/02/2020 09/30/2020 07/14/2021 Hep B, adult 01/27/2021 03/15/2021 08/05/2021 influenza, high-dose, quadrivalent 06/08/2020 08/11/2020 influenza, injectable, quadrivalent 05/24/2021 06/08/2022 pneumococcal conjugate PCV 13 07/04/2019 pneumococcal polysaccharide PPV23 10/18/2012 Tdap 10/18/2012 10/10/2020 zoster recombinant 08/11/2020 Plan of Care Reminders Provider Appointments None recorded. ? ? Lab None recorded. ? ? Referral None recorded. ? ? Procedures None recorded. ? ? Surgeries None recorded. ? ? Imaging None recorded. ? ? Vitals 07/01/2022 01:39PM Acute Rounding Visit Height Blood Pressure 6 ft 6 in 100/61 mm[Hg] 06/30/2022 11:48AM Admitting H&P Height Weight BMI Blood Pressure 6 ft 6 in 206.8 lbs 23.9 kg/m2 100/61 mm[Hg] 06/29/2022 02:35PM Acute Rounding Visit Height Weight BMI Blood Pressure 6 ft 6 in 206.8 lbs 23.9 kg/m2 99/71 mm[Hg] 06/27/2022 12:30PM Acute Rounding Visit Height Blood Pressure 6 ft 6 in 110/60 mm[Hg] 06/25/2022 12:13PM Initial Intake Note Height Blood Pressure 6 ft 6 in 110/60 mm[Hg] 06/15/2022 03:16PM Acute Rounding Visit Height Blood Pressure 6 ft 6 in 113/74 mm[Hg] 06/13/2022 01:01PM Acute Rounding Visit Height Blood Pressure 6 ft 6 in 113/74 mm[Hg] 06/10/2022 10:53AM Acute Rounding Visit Height Weight BMI Blood Pressure 6 ft 6 in 202.4 lbs 23.4 kg/m2 117/67 mm[Hg] 06/08/2022 06:54AM Admitting H&P Height Blood Pressure 6 ft 6 in 110/72 mm[Hg] 06/06/2022 10:32AM Acute Rounding Visit Height Blood Pressure 6 ft 6 in 100/76 mm[Hg] 06/03/2022 11:01AM Initial Intake Note Height Blood Pressure 6 ft 6 in 121/76 mm[Hg] 05/09/2022 01:33PM Acute Rounding Visit Height Blood Pressure 6 ft 6 in 80/48 mm[Hg] 05/04/2022 02:18PM Acute Rounding Visit Height Weight BMI Blood Pressure 6 ft 6 in 197.7 lbs 22.8 kg/m2 118/76 mm[Hg] 05/02/2022 12:00PM Acute Rounding Visit Height Blood Pressure 6 ft 6 in 112/71 mm[Hg] 04/28/2022 12:30PM Acute Rounding Visit Height Weight BMI Blood Pressure 6 ft 6 in 196.4 lbs 22.7 kg/m2 132/77 mm[Hg] 04/26/2022 12:52PM Acute Rounding Visit Height Blood Pressure 6 ft 6 in 132/76 mm[Hg] 04/21/2022 12:10PM Admitting H&P Height Weight BMI Blood Pressure 6 ft 6 in 195.5 lbs 22.6 kg/m2 132/74 mm[Hg] 04/20/2022 02:32PM Acute Rounding Visit Weight Blood Pressure 195.5 lbs 137/64 mm[Hg]
--- OUTSIDE RECORDS SUMMARY | 2022-07-11 06:19 | XMS_ITS | Continuity of Care Document ---
:1955 Author Organization [facility] Address [address] [facility] [address] [place] [address]- Care Team Providers Name Role Phone Not on Staff, PCP Primary Care Physician Unavailable Encounter [facility] Date(s): 04/26/22 - 05/26/[address] [facility] [address] [facility] [place] [address]- Attending Physician: Que Morel Admitting Physician: Que Morel Referring Physician: Que Morel Allergies, Adverse Reactions, Alerts No Known Allergies Immunizations Given and Recorded Vaccine Date Status Refusal Reason hepatitis B adult vaccine 08/05/21 Recorded hepatitis B adult vaccine 03/15/21 Recorded hepatitis B adult vaccine 01/27/21 Recorded SARS-CoV-2 (COVID-19) mRNA-1273 vaccine 07/14/21 Recorded SARS-CoV-2 (COVID-19) mRNA-1273 vaccine 09/30/20 Recorded SARS-CoV-2 (COVID-19) mRNA-1273 vaccine 09/02/20 Recorded influenza virus vaccine, inactivated 05/24/21 Recorded influenza virus vaccine, inactivated 08/11/20 Recorded influenza virus vaccine, inactivated 06/08/20 Recorded influenza virus vaccine, inactivated 06/14/18 Recorded influenza virus vaccine, inactivated 05/30/16 Recorded tetanus/diphtheria/pertussis, acel(Tdap) 10/10/20 Given tetanus/diphtheria/pertussis, acel(Tdap) 10/18/12 Recorde d zoster vaccine, inactivated 08/11/20 Recorded pneumococcal 13-valent vaccine 07/04/19 Recorded pneumococcal 23-valent vaccine 10/18/12 Recorded Medications aspirin 81 mg oral delayed release tablet 81 mg, 1, tablet, By Mouth, Daily, Refills 0, Maintenance, 05/09/22 19:58:00 EDT, Partial fill upon patient request if the prescription is for a schedule II opioid drug. Start Date: 05/09/22 Status: Orderedcalcium and vitamin D combination 600 mg-125 u oral tablet 1 tablet, By Mouth, Daily, # 90 tablet, 0 Refills, Maintenance, 05/09/22 20:06:00 EDT, Tablet, Partial fill upon patient request if the prescription is for a schedule II opioid drug. Start Date: 05/09/22 Status: Orderedcholestyramine 4 g/4.8 g oral powder for reconstitution = 4 Gm, By Mouth, 2 times a day with meals, 0 Refills, Maintenance, 05/09/22 19:59:00 EDT, Partial fill upon patient request if the prescription is for a schedule II opioid drug. Start Date: 05/09/22 Status: Ordereddocusate sodium 100 mg oral capsule 100 mg, 1, capsule, By Mouth, Daily, PRN, # 20 capsule, Refills 0, Maintenance, for constipation, 05/09/22 20:12:00 EDT, Partial fill upon patient request if the prescription is for a schedule II opioid drug. Start Date: 05/09/22 Status: OrderedDOK sodium 100 mg oral capsule 1 capsule = 100 mg, By Mouth, Daily, 0 Refills, Maintenance, 05/09/22 19:59:00 EDT, Partial fill upon patient request if the prescription is for a schedule II opioid drug. Start Date: 05/09/22 Status: OrderedDulcolax 10 mg rectal suppository 1 supp = 10 mg, Rectally, Daily, PRN as needed for constipation, 0 Refills, Maintenance, 05/09/22 19:59:00 EDT, Partial fill upon patient request if the prescription is for a schedule II opioid drug. Start Date: 05/09/22 Status: OrderedEliquis 5 mg oral tablet 1 tablet = 5 mg, By Mouth, 2 times a day, 0 Refills, Maintenance, 05/09/22 19:57:00 EDT, Partial fill upon patient request if the prescription is for a schedule II opioid drug. Start Date: 05/09/22 Status: OrderedFleet Enema 118 mL, Rectally, Daily, PRN as needed for constipation, 0 Refills, Maintenance, 05/09/22 20:00:00 EDT, Partial fill upon patient request if the prescription is for a schedule II opioid drug. Start Date: 05/09/22 Status: OrderedFlonase 50 mcg/inh nasal spray 1 sprays, Nares, Both, Daily, 0 Refills, Maintenance, 05/09/22 20:00:00 EDT, Partial fill upon patient request if the prescription is for a schedule II opioid drug. Start Date: 05/09/22 Status: OrderedGlucaGen 1 mg injection = 1 mg, Intramuscular, Daily, PRN Blood Glucose, 0 Refills, Maintenance, 05/09/22 20:00:00 EDT, Partial fill upon patient request if the prescription is for a schedule II opioid drug. Start Date: 05/09/22 Status: Orderedglucose 40% oral gel 1 application, By Mouth, Daily, PRN Blood Glucose, 0 Refills, Maintenance, 05/09/22 20:01:00 EDT, Partial fill upon patient request if the prescription is for a schedule II opioid drug. Start Date: 05/09/22 Status: OrderedHumalog Kwik Pen 100 units/mL subcutaneous injection Subcutaneous Injection, 3 times a day before meals and bedtime, 150-199=2 units 200-249=4 units 250-299=6 units 300-349=8 units 350-400=10 units, 0 Refills, Maintenance, 05/09/22 20:02:00 EDT, Partial fill upon patient request if the prescription... Start Date: 05/09/22 Status: OrderedHumalog Kwik Pen 100 units/mL subcutaneous injection = 3 units, Subcutaneous Injection, Monday, Monday, Monday & Monday., 0 Refills, Maintenance, 05/09/22 20:04:00 EDT, Partial fill upon patient request if the prescription is for a schedule II opioid drug. Start Date: 05/09/22 Status: OrderedImdur 30 mg oral tablet, extended release 30 mg, By Mouth, Daily in AM, Refills 0, Maintenance, 05/09/22 20:05:00 EDT, Partial fill upon patient request if the prescription is for a schedule II opioid drug. Start Date: 05/09/22 Status: Orderedlactobacillus rhamnosus GG 80 mg oral capsule 1 capsule, By Mouth, 2 times a day, 0 Refills, Maintenance, 05/09/22 20:06:00 EDT, Partial fill uponpatient request if the prescription is for a schedule II opioid drug. Start Date: 05/09/22 Status: OrderedDedeus Solostar Pen 100 units/mL subcutaneous solution = 15 units, Subcutaneous Injection, Daily, 0 Refills, Maintenance, 05/09/22 20:01:00 EDT, Partial fill upon patient request if the prescription is for a schedule II opioid drug. Start Date: 05/09/22 Status: OrderedLipitor 80 mg oral tablet 1 tablet = 80 mg, By Mouth, Daily at bedtime, 0 Refills, Maintenance, 05/09/22 19:58:00 EDT, Partialfill upon patient request if the prescription is for a schedule II opioid drug. Start Date: 05/09/22 Status: Orderedmelatonin 5 mg oral tablet 1 tablet = 5 mg, By Mouth, Daily at bedtime, PRN as needed for insomnia, 0 Refills, Maintenance, 05/09/22 20:06:00 EDT, Partial fill upon patient request if the prescription is for a schedule II opioiddrug. Start Date: 05/09/22 Status: Orderedmidodrine 5 mg oral tablet 5 mg, 1, tablet, By Mouth, Every 8 hours, PRN, SBP <90, Refills 0, Maintenance, Blood Pressure, 05/09/22 20:07:00 EDT, Partial fill upon patient request if the prescription is for a schedule II opioid drug. Start Date: 05/09/22 Status: OrderedMultivitamin 1 tablet, By Mouth, Daily, 0 Refills, Maintenance, 09/21/21 12:52:00 EST, Partial fill upon patient request if the prescription is for a schedule II opioid drug. Start Date: 09/21/21 Status: OrderedNitrostat 0.4 mg sublingual tablet 1 tablet = 0.4 mg, Sublingual, Every 5 minutes, PRN as needed for chest pain, not to exceed 3 doses/15 min--if pain persists, seek medical attention, 0 Refills, Maintenance, 05/09/22 20:08:00 EDT, Tablet, Partial fill upon patient request if the presc... Start Date: 05/09/22 Status: OrderedoxyCODONE 5 mg oral tablet 5 mg, 1, tablet, By Mouth, Daily at bedtime, Refills 0, Tot. Refills 0, Maintenance, 05/09/22 20:09:00 EDT, Partial fill upon patient request if the prescription is for a schedule II opioid drug. Start Date: 05/09/22 Status: OrderedoxyCODONE 5 mg oral tablet 5 mg, 1, tablet, By Mouth, Every 6 hours, PRN, Refills 0, Tot. Refills 0, Maintenance, Moderate/Severe Pain, 05/09/22 20:09:00 EDT, Partial fill upon patient request if the prescription is for a schedule II opioid drug. Start Date: 05/09/22 Status: Orderedprimidone 50 mg oral tablet 50 mg, 1, tablet, By Mouth, Daily at bedtime, Refills 0, Maintenance, 05/09/22 20:10:00 EDT, Partialfill upon patient request if the prescription is for a schedule II opioid drug. Start Date: 05/09/22 Status: OrderedSantyl 250 u/gm ointment 1 application, Topically, Daily, Every shift, 0 Refills, Maintenance, 05/09/22 20:11:00 EDT, Partialfill upon patient request if the prescription is for a schedule II opioid drug. Start Date: 05/09/22 Status: OrderedToprol XL 25 mg oral tablet, extended release 25 mg, 1, tablet, By Mouth, Daily, Refills 0, Maintenance, 05/09/22 20:06:00 EDT, Partial fill upon patient request if the prescription is for a schedule II opioid drug. Start Date: 05/09/22 Status: Orderedtorsemide 40 mg oral tablet 1 tablet = 40 mg, By Mouth, Daily, 0 Refills, Maintenance, 05/09/22 20:11:00 EDT, Partial fill upon patient request if the prescription is for a schedule II opioid drug. Start Date: 05/09/22 Status: OrderedVitamin C 500 mg oral tablet 2 tablet = 1,000 mg, By Mouth, Daily, 0 Refills, Maintenance, 09/21/21 12:52:00 EST, Tablet, Partialfill upon patient request if the prescription is for a schedule II opioid drug. Start Date: 09/21/21 Status: OrderedZetia 10 mg oral tablet 1 tablet = 10 mg, By Mouth, Daily, 0 Refills, Maintenance, 05/09/22 20:00:00 EDT, Partial fill upon patient request if the prescription is for a schedule II opioid drug. Start Date: 9/19/22 Status: Ordered Problem List Condition Confirmation Course Effective Dates Status Health Stat us Informant Carotid stenosis Confirmed Active CKD (chronic kidney Confirmed Active disease), stage II NSTEMI (non-ST Confirmed Active elevated myocardial infarction) Proteinuria Confirmed Active Patient Care team information PersonnelName: Not on Staff, PCP
--- OUTSIDE RECORDS SUMMARY | 2022-07-11 06:19 | XMS_ITS | Encounter Summary ---
:1955 Author Care Team Providers Name Role Phone Lamont Chris MD Primary Care Provider [phone] [facility] 1st Floor OTHER [phone] Reason for Visit Acute Rounding Visit Assessment and Plan 1. COVID-19 06/07 covid positive encourage fluids consider ivf for anorexia consider decadron for sob send to ED for decompensation 2. Pressure injury of sacral region of back Continue local care as ordered. cefazolin 2 mg iv TTS after dialysis to 06/21 vancomycin 750 mg iv TTS after dialysis to 06/21 fluconazole 400 mg TTS after dialysis to 06/21 probiotic bid oxycodone 5 mg q 6 hrs prn for pain, or 10 mg q6hr prn Wound care consult. Monitor for healing. encourage oob Discussion Note: None recorded.Patient educational handouts: No [...] list Medications Administered None recorded. Vitals Height Blood Pressure 6 ft 6 in 113/74 mm[Hg] Results Lab Results None recorded. Allergies Code Code System Name Reaction Severity Onset 442362 RxNorm Bactrim ? ? ? Problems Name [...] EXTRACTION CATARACT EXTRACTION, BILATERAL Bilateral 2017 Slick [place] CORONARY ARTERY BYPASS GRAFT X2 vessels HERNIA [...] you have a medical power of Y traffic law attorney? What was the date of your most 04/21/2022 recent tobacco screening? Do you have an advanced Y directive? Do you use any illicit or N recreational drugs? Where do you live? [facility] Notes: home alone, has flight of stairs [...] alcohol use? Functional Status Unknown. Past Encounters 06/15/2022 Covid-19; Pressure Injury of Sacral Neyda on of Back Marielos Alvarez, ENGINEERING CLERK: [address] [facility] , [place] [address], Ph. 06/13/2022 Pressure Injury of Sacral Region of Back ; Asthenia Marielos Alvarez ENGINEERING CLERK: [address] [facility] , [place] [address], Ph. 06/10/2022 Pressure Injury of Sacral Region of Back ; End-stage Renal Disease; Asthenia; Covid-19 Marielos Alvarez ENGINEERING CLERK: [address] [place] [address], Ph. 06/08/2022 Asthenia; End-stage Renal Disease; Coron tad Arteriosclerosis; Type 2 Diabetes Mellitus; Chronic Osteomyelitis of Sacrum; Orthostatic Hypotension; Hyperlipidemia; Chronic Pain; Covid-19 Bethany Cabrera MD: [address] [place] [address], Ph. 06/06/2022 Pressure Injury of Sacral Region of Back ; Coronary Arteriosclerosis Marielos Alvarez ENGINEERING CLERK: [address] [place] [address], Ph. 06/03/2022 Pressure Injury of Sacral Region of Back ; Sepsis; End-stage Renal Disease; Atrial Fibrillation; Cardiomyopathy; Hyperlipidemia; Neuropathy; Type 2 Diabetes Mellitus; Chronic Kidney Disease Stage 4; Asth enia; Anemia; Low Blood Pressure; Hooks ry Arteriosclerosis Marielos Alvarez, ENGINEERING CLERK: [address] [place] [address], Ph. History of Present Illness Note: <div>seen today for acute rounding visit, CAOx3 in bed, on left side, he reports staff have been turning him every 4 hours, wound not visualized but discussed with Dr Garcia last night and she recomended he go to the hospital for debridement and he is willing to go tomorrow after dialysis</div>Review of Systems: ROS as noted in the [...] 3. 9 bun 33 creat 3.09 gfr 20</div><div>06/13 wbc 16 .9 h/h 8.6/27.1 plt 284 na 127 k 3.7 bun 40 creat 3.34 gfr 18</di v>
--- OUTSIDE RECORDS SUMMARY | 2022-07-11 06:19 | XMS_ITS | Continuity of Care Document ---
:1955 Author Organization [facility] Address [address] [place] [id number]- Care Team Providers Name Role Phone Dot PITTMAN, Elsie Ramirez Primary Care Physician En[place] [facility] [place](s): 04/24/21 - 04/26/[address] [id number] Discharge Disposition: A-D/C Home Attending Physician: Slick Browning MD Admitting Physician: Olinda Machado MD Referring Physician: Not on Staff, Referring MD Allergies, Adverse Reactions, Alerts Substance Reaction Severity Status NKA Active Immunizations Given and Recorded Vaccine Date Status Refusal Reason tetanus/diphtheria/pertussis, acel(Tdap) 10/10/20 Given Medications aspirin 81 mg oral delayed release tablet 81 mg, 1, tablet, By Mouth, Daily, # 30 tablet, Refills 0, Tot. Refills 0, Maintenance, 04/26/21 13:21:00 EDT, Do Not Route, Partial fill upon patient request if the prescription is for a schedule II opioid drug. Start Date: 04/26/21 Status: OrderedCompression Stockings surgical, calf length 20-30 mm Hg, # 2 pair, Refills 5, Tot. Refills 5, Maintenance, Dx: Chronic venous insufficency with swelling and skin changes, 07/27/12 9:04:24 Start Date: 07/27/12 Status: OrderedEntresto 24 mg-26 mg oral tablet 1 tablet, By Mouth, 2 times a day, # 60 tablet, 0 Refills, Maintenance, 04/26/21 13:23:00 EDT, Tablet, Partial fill upon patient request if the prescription is for a schedule II opioid drug. Start Date: 04/26/21 Status: OrderedhydrALAZINE 25 mg oral tablet 25 mg, 1, tablet, By Mouth, 2 times a day, # 60 tablet, Refills 0, Tot. Refills 0, Maintenance, 04/26/21 13:22:00 EDT, Do Not Route, Partial fill upon patient request if the prescription is for a schedule II opioid drug. Start Date: 04/26/21 Status: OrderedhydrALAZINE 25 mg oral tablet 25 mg, Tablet, By Mouth, 04/26/21 9:00:00 EDT Start Date: 04/26/21 Stop Date: 04/26/21 Status: CompletedInsulin Glargine Inj 0.2 mL = 20 units, Subcutaneous Injection, Daily at bedtime, Dose decrease from 20, 0 Refills, Maintenance, 04/26/21 13:21:00 EDT, Injection, Partial fill upon patient request if the prescription is for a schedule II opioid drug. Start Date: 04/26/21 Status: Orderedisosorbide mononitrate 30 mg oral tablet, extended release 30 mg, 1, tablet, By Mouth, Daily in AM, # 30 tablet, Refills 0, Tot. Refills 0, Maintenance, 04/26/21 13:22:00 EDT, Do Not Route, Partial fill upon patient request if the prescription is for a schedule II opioid drug. Start Date: 04/26/21 Status: OrderedLymphedema therapy for both legs Lymphedema therapy for both legs, See Instructions, # 1 application, Refills 3, Tot. Refills 3, Maintenance, bilat lymph compression therapy, 07/27/12 9:04:35 Start Date: 07/27/12 Status: Orderedmetoprolol 25 mg oral tablet 25 mg, 1, tablet, By Mouth, 2 times a day, # 60 tablet, Refills 0, Tot. Refills 0, Maintenance, 04/26/21 13:22:00 EDT, Do Not Route, Partial fill upon patient request if the prescription is for a schedule II opioid drug. Start Date: 04/26/21 Status: Orderedmetoprolol 25 mg oral tablet 25 mg, Tablet, By Mouth, 04/26/21 9:00:00 EDT Start Date: 04/26/21 Stop Date: 04/26/21 Status: Completedtorsemide 20 mg oral tablet 3 tablet = 60 mg, By Mouth, 2 times a day, # 180 tablet, 0 Refills, Maintenance, 04/26/21 13:23:00 EDT, Tablet, Partial fill upon patient request if the prescription is for a schedule II opioid drug. Start Date: 04/26/21 Status: OrderedZetia 10 mg oral tablet 1 tablet = 10 mg, By Mouth, Daily, # 30 tablet, 0 Refills, Maintenance, 04/26/21 13:23:00 EDT, Tablet, Partial fill upon patient request if the prescription is for a schedule II opioid drug. Start Date: 04/26/21 Status: Ordered Problem List Condition Effective Dates Status Health Status Informant Carotid stenosis(Confirmed) Active CKD (chronic kidney disease), stage Active II(Confirmed) NSTEMI (non-ST elevated myocardial Active infarction)(Confirmed) Proteinuria(Confirmed) Active Vital Signs Most recent to oldest [Reference 1 2 3 Range]: Weight 89.7 kg 90.2 kg 92 kg (04/26/21 4:18 AM) (04/25/21 7:00 AM) (04/24/21 10:13 PM) Oxygen Saturation [94-100 %] 100 % 98 % 100 % (04/26/21 2:16 PM) (04/26/21 7:59 AM) (04/26/21 4:18 A M) Pulse Rate [55-90 bpm] 58 bpm 61 bpm 61 bpm (04/26/21 2:16 PM) (04/26/21 8:23 AM) (04/26/21 7:59 A M) Blood Pressure [90-138/55-84 mm 131/82 mm Hg 139/87 mm Hg 139/87 mm Hg Hg] (04/26/21 2:16 PM) *H* *H* (04/26/21 8:23 AM) (04/26/21 8:23 AM ) Respiratory Rate [16-30 br/min] 18 br/min 18 br/min 18 br/min (04/26/21 2:16 PM) (04/26/21 7:59 AM) (04/26/21 4:18 A M) Temperature [96.8-100.4 DegF] 97.6 DegF 97.5 DegF 97 .7 DegF (04/26/21 2:16 PM) (04/26/21 7:59 AM) (04/26/21 4:18 A M) Mode of Delivery (Oxygen) Room air Room air Room a ir (04/26/21 2:16 PM) (04/26/21 7:59 AM) (04/26/21 4:18 A M) Blood pressure sites Arm, right Arm, right Arm, right (04/26/21 2:16 PM) (04/26/21 7:59 AM) (04/26/21 4:18 A M) Temperature Route Oral Oral Oral (04/26/21 2:16 PM) (04/26/21 7:59 AM) (04/26/21 4:18 A M) Dry Weight 90.2 kg (04/25/21 3:50 PM) Weight Obtained Via Standing scale Bed scale (04/26/21 4:18 AM) (04/24/21 10:13 PM)
--- OUTSIDE RECORDS SUMMARY | 2022-07-11 06:19 | XMS_ITS | Encounter Summary ---
:1955 Author Care Team Providers Name Role Phone Lamont Chris MD Primary Care Provider [phone] [address] Floor OTHER [phone] Reason for Visit Admitting H&P Assessment and Plan 1. Pressure injury stage IV S/P debridement inpt and again on 06/28 since return here, and s/p diverting colostomy to help with wound healing. Continue meropenem 500 mg IV 3x/wk after dialysis and daptomycin 700 mg IV 3x/wk after dialysis until 07/03. And probiotic BID. Continue local wound care as ordered and weekly debridements with Dr. Garcia. Has appt at [facility] wound care in Jul. for ? hyperbaric tx. For pain continue fentanyl patch 25 mcg q 72 hrs, APAP 1000 mg TID, dilaudid 2 mg q 12 hrs prn before dressing changes, and oxycodone 5 mg q 6 hrs prn.. Ordered for specialty bed, low air loss mattress/pressure relief/turn q 2 hrs Continue barreto Continue Nepro, prosource and Arpit for nutritional supplementation to help wound healing. F/U with ID, Dr. Avina, on 07/08 Monitor labs, vitals and sxs. 2. Osteomyelitis of sacrum Continue abxs as above. Unclear why rec ommended course is only 2 weeks. But has f/u with Dr. Avina on 07/08 and can discuss then. Monitor. 3. Colostomy present New - placed to help with sacral wound healing. Continue with ostomy care/teaching Needs f/u with surgery, Dr. Temple, 2 w ks from d/c for bridge removal Monitor VS, labs, bowels 4. Asthenia Remains very deconditioned. Needs PT/OT for strengthening, balance, gait training, safety and function. Continue fall precautions. Monitor for safety. 5. End-stage renal disease Continue dialysis 3x/wk. Continue nephrocaps qd and renal diet. Continue Ca+/vit D 600 mg/1000 IU qd. Continue to avoid nephrotoxic meds as ab le. Monitor labs. Renal f/u as planned 6. Cardiomyopathy Severe at baseline with EF 20-25%. Has AICD in place Continue metoprolol ER 25 mg qd, torsemi de 40 mg qd, isosorbide ER 30 mg qd and ASA 81 mg qd. Fluid balance managed with dialysis. Monitor resp. status, fluid status, wts and labs. F/U with cardio as planned. 7. Congestive heart failure As above. 8. Coronary arteriosclerosis No recent sxs. Continue meds as above and ASA 81 mg qd, atorvastatin 80 mg qd, and NTG 0.4 mg SL prn Monitor for sxs. F/U with cardio as planned. 9. Atrial fibrillation Rate in good control on meds as above. Continue Eliquis 5 mg BID Monitor HR and bleeding risk. 10. Type 2 diabetes mellitus Very poor control Will increase lantus from 20 U qd to 25 U qd and continue SSI. Consider addition of SGLT2 or GLP-1 for cardiac risk reduction also. SGLT2 preferred as they are also indicated in heart failure, however GLP-1 preferred in renal failure. Monitor fingersticks QID and HgA1C q 3 m onths. 11. Hyponatremia Na+ remains low. Not quite as low as it appears if corrected for very high sugars he has been running. Being managed at dialysis and with fluid restriction. Continue 1500 ml/d fluid restriction. Monitor labs. 12. Orthostatic hypotension Continue midodrine 5 mg q 8 hrs. Monitor BP and sxs. 13. Hyperlipidemia Continue ezetimibe 10 mg qd, atorvastat in 80 mg qd, and cholestyramine 4 gm BID. Monitor labs yearly. 14. COVID-19 Resolved Monitor for sequelae 15. Anemia Multifactorial. Continue Epoetin 10,000 U weekly, manage d by renal. Monitor labs. Transfuse for hgb<7 16. Neuropathy Continue pain meds as above and primido ne 50 mg qhs Monitor sxs. 17. Insomnia Continue melatonin 3 mg qhs. Monitor sleep patterns. Discussion Note: None recorded.Patient educational handouts: No [...] in 206.8 lbs 23.9 kg/m2 100/61 mm[Hg] Results Lab Results None recorded. Allergies Code Code System Name Reaction Severity Onset 952958 RxNorm Bactrim ? ? ? Problems Name [...] Status Former Smoker Notes: quit 200 3 What is your level of alcohol Moderate Notes: o ne beer/day consumption? Has tobacco cessation counseling N Notes: n/a as pt no longer been provided? smokes How many times per week do you 5-7 times per week consume alcohol? What is your code status? Full Code Do you have a medical power of Y attorney recruiter? What was the date of your most 04/21/2022 recent tobacco screening? Legal Guardian? N Do you have an advanced Y directive? Do you have an out of hospital N DNR? Do you or have you ever used any N other forms of tobacco or nicotine? Have you ever been counseled for N unhealthy alcohol use? Do you use any illicit or N recreational drugs? Where do you live? [facility] Notes: home alone, has flight of stairs but now matamoros s a stair lift What is your relationship status? Notes : Was in 2001, then had new relatio nship and broke up, so not act ually . Functional Status Unknown. Past Encounters 06/30/2022 Pressure Injury Stage IV; Osteomyelitis of Sacrum; Colostomy Present; Asthenia; End-stage Renal Disease; Cardiomyopathy; Congestive Heart Failure; Coronary Arteriosclerosis; Atrial Fibrillation; Type 2 Diabetes Mellitus; Hyponatremia; Orthost atic Hypotension; Hyperlipidemia; Covid- 19; Anemia; Neuropathy; Insomnia Autumn Kerr MD: [address] [place] [address], Ph. 06/29/2022 Pressure Injury Stage IV Marielos Alvarez [employer] FINISHER: [address] [place] [address], Ph. 06/27/2022 Pressure Injury Stage IV; Colostomy Pres ent; Asthenia; End-stage Renal Disease; Coronary Arteriosclerosis; Type 2 Diabetes Mellitus; Orthostatic Hypotension; Hyperlipidemia; Chronic Pain; Covid-19; Atrial Fibrillation; Anemia Marielos Alvarez NP: [address] [place] [address], Ph. 06/25/2022 Pressure Injury Stage IV; Colostomy Pres ent; Asthenia; End-stage Renal Disease; Coronary Arteriosclerosis; Type 2 Diabetes Mellitus; Orthostatic Hypotension; Hyperlipidemia; Chronic Pain; Covid-19; Atrial Fibrillation; Anemia Minerva Bolden, [employer]ER: [address] [facility], [place] [address], Ph. 06/15/2022 Covid-19; Pressure Injury of Sacral Nedya on of Back Marielos Alvarez, [employer] FINISHER: [address] [facility] , [place] [address], Ph. 06/13/2022 Pressure Injury of Sacral Region of Back ; Asthenia Marielos Alvarez, [employer] FINISHER: [address] [facility] , [place] [address], Ph. 06/10/2022 Pressure Injury of Sacral Region of Back ; End-stage Renal Disease; Asthenia; Covid-19 Marielos Alvarez, [employer] CASE FINISHER: [address] [facility] , [place] [address], Ph. 06/08/2022 Asthenia; End-stage Renal Disease; Coron tad Arteriosclerosis; Type 2 Diabetes Mellitus; Chronic Osteomyelitis of Sacrum; Orthostatic Hypotension; Hyperlipidemia; Chronic Pain; Covid-19 Bethany Cabrera MD: [address] [facility] [place] [address], Ph. 06/06/2022 Pressure Injury of Sacral Region of Back ; Coronary Arteriosclerosis Marielos Alvarez [employer]ISH[employer]: [address] [place] [address], Ph. 06/03/2022 Pressure Injury of Sacral Region of Back ; Sepsis; End-stage Renal Disease; Atrial Fibrillation; Cardiomyopathy; Hyperlipidemia; Neuropathy; Type 2 Diabetes Mellitus; Chronic Kidney Disease Stage 4; Asth enia; Anemia; Low Blood Pressure; Hooks ry Arteriosclerosis Marielos Alvarez [employer] CASE FINISHER: [address] [facility] , [place] [address], Ph. History of Present Illness Note: <div>This is a 67 yo man with ESRD on HD, who is well known to us after initial admission in 03/2022, and several subsequent back and forths to the hospital for infected sacral wound with osteomyelitis. Most recently he was [place] [facility] [place]. It had already been planned that he was togo to the hospital on 06/16 for eval of probably infected sacral wound. In ED he had stable VS, WBC was 14.1, Na+126, BUN/Cr-44/2.9, lactate-2.3. Unable to get K+ as spec was hemolyzed. CT showed "Enlarging sacral decubitus ulcer with communication into the posterior rectal wall and surrounding phlegmon. No loculated collection to suggest abscess at this time. Worsening distal coccygeal osteomyelitis . EKG showed Afib with RVR-rates 100-120. U/A showed 104 WBCs, 166 RBCs and heavy bacteria with only 0-2 epis. He got gentle hydration. He was still on vanco and cefazolin from previous admission and this was changed to vanco and Zosyn, pending cxs. Apixaban was held in anticipation of OR debridement. He was taken to the OR on 06/16 for extensive debridement under general anesthesia. Post op he developed hypotension and required ICU admission and pressors. He was weaned off pressors and started on midodrine. Wound cxs grew Klebsiella ESBL+ and enterococcus VRE+. And abxs changed to daptomycin and meropenem. He was taken back to the OR on 06/21 for a diverting ostomy. Had right IJ mini-pak placed on 06/22. His oxycodone dose was lowered due to some confusion, and he then remained cognitively intact. He was transferred back here on 06/24.</div><div>Since back he was seen by Dr. Garcia on 06/28 and had further debridement. </div><div>Tonight we discuss lots of questions about prognosis and time frame. His son is present for discussion. He is also concerne d because he keeps getting desserts on his trays. He doesn't eat them, but it's annoying. He says his butt hurts, but it is manageable with pain meds, just had fentanyl patch put on a few hrs ago. </div><div>His PMH includes ESRD on HD with right IJ permacath (02/2022), CHF due to ischemic cardiomyopathy (EF 20-25%), HTN, hypotension, AODM with neuropathy, stage 4 right sacral decub-s/p multiple debridements, sacral osteomyelitis, s/p diverting ostomy to help with ulcer hea ling, anemia, PAF on Eliquis with AICD/pacer in place (2013), discoid lupus, CAD-s/p NSTEMI 09/2018 (3 previous MIs), s/P CABG x2 in 2013, HLD, OA (jalyn. wrist) and vasculogenic ED. </div> Review of Systems ? Notes: <div>All others reviewed and negative unless otherwise stated in the HPI.</div> Physical Exam ? General Adult Exam Reported By: Patient Constitutional: General Appearance: well-dev eloped. Level of Distress: NAD, chronically ill. Ambulation: in wheelchair; currently in bed, at baseline used walker, curren tly needing mckenzie lift for transfers, but walked with PT yesterday Psychiatric: Insight: good judgement. Men ryland Status: active and alert; lack of motivation. Orientation: to time, to place, to person. Memory: recent memory normal, remote memory normal Head: Head: normocephalic, atrauma tic Eyes: Lids and Conjunctivae: non-i njected. Sclerae: non-icteric ENMT: Hearing: no hearing loss. Or opharynx: moist mucous membranes Lungs: Auscultation: breath sounds normal, good air movement, no wheezing, no rales/crackles, no rhonch i Cardiovascular: Heart Auscultation: irregula rly irregular Abdomen: Bowel Sounds: normal, soft, non-distended, no tenderness; ostomy present left abd Musculoskeletal:: Extremities: no cyanosis, ed rashid. Joints, Bones, and Muscles normal movement of all extremities; upper extremity/hand tremor present Neurologic: Cranial Nerves: grossly inta ct Skin: [...] 3.7 bun 40 creat 3.34 gfr 18</di v><div>06/23/22 (hosp): Na 123, K 4.1</div><div>06/24/22 (hosp) : wbc 17.2, hgb 7.4, plt 328.</div><div>06/27 wbc 15.2 h/h 7.5/23.3 plt 341 na 127 k 3.6 bun 39 creat 2.73 gfr 23</div>
--- OUTSIDE RECORDS SUMMARY | 2022-07-11 06:19 | XMS_ITS | Continuity of Care Document ---
:1955 Author Organization [facility] Address [address] [place] [address]- Care Team Providers Name Role Phone Not on Staff, PCP Primary Care Physician Unavailable Encounter [facility] Date(s): 05/09/22 - 06/02/[address] [address] Encounter Diagnosis Sepsis (Final) - 05/09/22 Sacral wound (Final) - 05/20/22 Discharge Disposition: A-Transfer SNF Attending Physician: Ramses PITTMAN, Alvarez Olvera Admitting Physician: Nicole Farr MD Referring Physician: Not on Staff, Referring MD Allergies, Adverse Reactions, Alerts No Known Allergies [...] Recorded pneumococcal 23-valent vaccine 10/18/12 Recorded Medications acetaminophen 325 mg oral tablet 975 mg, By Mouth, 3 times a day, Refills 0, Maintenance, 06/02/22 15:41:00 EDT, Partial fill upon patient request if the prescription is for a schedule II opioid drug. Start Date: 06/02/22 Status: Orderedaspirin 81 mg oral delayed release tablet 81 [...] II opioid drug. Start Date: 05/09/22 Status: OrderedceFAZolin 2 g injection = 2 Gm, IV Push, Every Monday, and Monday, To give post-dialysis until 06/21/22, 0 Refills, Maintenance, 06/02/22 14:51:00 EDT, Injection, Partial fill upon patient request if the prescription is for a schedule II opioid drug. Start Date: 06/02/22 Status: Orderedcholestyramine 4 g/4.8 g oral powder [...] II opioid drug. Start Date: 05/09/22 Status: OrderedEpoetin Wai 1 mL = 10,000 units, IV Push Slowly, Every Monday, and Monday, 0 Refills, Maintenance, 06/02/22 14:52:00 EDT, Injection, Partial fill upon patient request if the prescription is for a schedule II opioid drug. Start Date: 06/02/22 Status: OrderedFlonase 50 mcg/inh nasal spray 1 sprays, Nares, Both, Daily, 0 Refills, Maintenance, 05/09/22 20:00:00 EDT, Partial fill upon patient request if the prescription is for a schedule II opioid drug. Start Date: 05/09/22 Status: Orderedfluconazole 200 mg oral tablet 2 tablet = 400 mg, By Mouth, Every Monday, and Monday, Give AFTER hemodialysis until 06/21/22, 0 Refills, Maintenance, 06/02/22 14:48:00 EDT, Tablet, Partial fill upon patient request if theprescription is for a schedule II opioid drug. Start Date: 06/02/22 Status: OrderedGlucaGen 1 mg injection = 1 [...] II opioid drug. Start Date: 05/09/22 Status: Orderedinsulin lispro 100 units/mL injectable solution 2-14 units, Subcutaneous Injection, 3 times a day before meals, 0 Refills, Maintenance, 06/02/22 14:45:00 EDT, Injection, Partial fill upon patient request if the prescription is for a schedule II opioid drug. Start Date: 06/02/22 Status: Orderedlactobacillus rhamnosus GG 80 mg oral capsule 1 capsule, By Mouth, 2 times a day, 0 Refills, Maintenance, 05/09/22 20:06:00 EDT, Partial fill uponpatient request if the prescription is for a schedule II opioid drug. Start Date: 05/09/22 Status: OrderedLantus Solostar Pen 100 units/mL subcutaneous solution = [...] schedule II opioiddrug. Start Date: 05/09/22 Status: Orderedmetoprolol 25 mg oral tablet 12.5 mg, Tablet, By Mouth, Hold for: if SBP < 90 or HR < 60, 06/02/22 9:00:00 EDT Start Date: 06/02/22 Stop Date: 06/02/22 Status: Completedmidodrine 5 mg oral tablet 5 mg, 1, tablet, By Mouth, Every 8 hours, PRN, SBP <90, Refills 0, Maintenance, Blood Pressure, 05/09/22 20:07:00 EDT, Partial fill upon patient request if the prescription is for a schedule II opioid drug. Start Date: 05/09/22 Status: Orderedmidodrine 5 mg oral tablet 10 mg, Tablet, By Mouth, Hold for: if SBP > 110, 06/02/22 9:00:00 EDT Start Date: 06/02/22 Stop Date: 06/02/22 Status: CompletedNephrocap Capsule 1, capsule, By Mouth, Daily, Refills 0, Maintenance, 06/02/22 14:45:00 EDT, Capsule, Partial fill upon patient request if the prescription is for a schedule II opioid drug. Start Date: 06/02/22 Status: OrderedNitrostat 0.4 mg sublingual tablet 1 [...] tablet, By Mouth, Every 6 hours, PRN, for 3 days, # 12 tablet, Refills 0, Tot. Refills 0, Acute 06/05/22 15:41:00 EDT, Pain , Severe, 06/02/22 15:41:00 EDT, Print Requisition, Partial fill upon patient request if the prescription is for a rose mary... Start Date: 06/02/22 Stop Date: 06/05/22 Status: OrderedoxyCODONE 5 mg oral tablet 5 mg, Tablet, By Mouth, Every 6 hours, Hold for: sedation, RR<20, HR <60, BP <100/60, PRN for Pain , Severe, Routine, 05/22/22 23:58:00 EDT Start Date: 05/22/22 Stop Date: 06/03/22 Status: Discontinuedprimidone 50 mg oral tablet 50 mg, 1, tablet, By Mouth, Daily at bedtime, Refills 0, Maintenance, 05/09/22 20:10:00 EDT, Partialfill upon patient request if the prescription is for a schedule II opioid drug. Start Date: 05/09/22 Status: OrderedSantyl Topical Oint 1 applicator, Topically, Daily, 0 Refills, Maintenance, Ointment Start Date: 06/02/22 Status: OrderedSenna 8.6 mg oral tablet 17.2 mg, 2, tablet, By Mouth, Daily, Refills 0, Maintenance, 06/02/22 14:48:00 EDT, Tablet, Partial fill upon patient request if the prescription is for a schedule II opioid drug. Start Date: 06/02/22 Status: OrderedToprol XL 25 mg oral tablet, extended release 25 mg, 1, tablet, By Mouth, Daily, Refills 0, Maintenance, 05/09/22 20:06:00 EDT, Partial fill upon patient request if the prescription is for a schedule II opioid drug. Start Date: 05/09/22 Status: Orderedvancomycin 750 mg intravenous injection = 500 mg, IV Infusion, Every Monday, and Monday, after dialysis until 06/21/22, # 20 each, 0 Refills, Acute 06/21/22 22:00:00 EDT, 06/02/22 14:52:00 EDT, Partial fill upon patient request ifthe prescription is for a schedule II opioid drug. Start Date: 06/02/22 Stop Date: 06/21/22 Status: OrderedVashe Topical Solution 1 applicator, Topically, Daily, 0 Refills, Maintenance, Solution Start Date: 06/02/22 Status: OrderedVitamin C 500 mg oral tablet [...] II opioid drug. Start Date: 05/09/22 Status: Ordered Problem List Condition Confirmation Course Effective Dates Status Health Stat us Informant Carotid stenosis Confirmed Active CKD (chronic kidney Confirmed Active disease), stage II NSTEMI (non-ST Confirmed Active elevated myocardial infarction) Proteinuria Confirmed Active Results Orders for Microbiology Reports Name Date Anaerobic Culture (ANAEROBIC CULTURE) 05/10/22 Tissue Culture w/ Gram Smear (TISSUE/BIOPSY CULT.) 04/22 Blood Culture 05/09/22 Blood Culture #2 05/09/22 Microbiology Reports TEST:Anaerobic Culture STATUS:Auth (Verified) BODY SITE: SOURCE:TISSUE1 COLLECTED DATE/TIME:05/10/22 7:05 PMAnaerobic Culture SPECIMEN DESCRIPTION : TISSUE SACRAL WOUND TISSUE SPECIAL REQUESTS : NONE CULTURE : NO ANAEROBES ISOLATED REPORT STATUS : FINAL 05/12/2022TEST:Tissue/Biopsy Culture STATUS:Auth (Verified) BODY SITE: SOURCE:TISSUE1 COLLECTED DATE/TIME:05/10/22 7:05 PMTissue/Biopsy Culture SPECIMEN DESCRIPTION : TISSUE SACRAL WOUND TISSUE SPECIAL REQUESTS : CRITICAL VALUE CALLED AND VERIFIED BY READBACK FOR: GRAM STAIN TO [id number], [facility], 05/11/22 AT 0242 BY TECH [id number] GRAM STAIN : 3+ POLYMORPHONUCLEAR LEUKOCYTES 2+ YEAST 2+ GRAM NEGATIVE RODS 2+ GRAM POSITIVE COCCI CULTURE : 2+ ESCHERICHIA COLI These AST results were performed on the Microscan ID and AST system 3+ ENTEROCOCCUS AVIUM These AST results were performed on the Microscan ID and AST system REPORT STATUS : FINAL 05/13/2022 ORGANISM 2+ ESCHERICHIA COLI These AST results were performed on the Microscan ID and AST system METHOD MIN. INHIB. CONC. (MCG/ML) AMPICILLIN SUSCEPTIBLE AMPICILLIN/SULBACTAM SUSCEPTIBLE AMOXICILLIN/CLAVULAN SUSCEPTIBLE CEFAZOLIN SUSCEPTIBLE CEFEPIME SUSCEPTIBLE CEFTRIAXONE SUSCEPTIBLE CIPROFLOXACIN SUSCEPTIBLE ERTAPENEM SUSCEPTIBLE GENTAMICIN SUSCEPTIBLE LEVOFLOXACIN SUSCEPTIBLE MEROPENEM SUSCEPTIBLE PIPERACILLIN/TAZOBAC SUSCEPTIBLE TRIMETH/SULFAMETHOX SUSCEPTIBLE TETRACYCLINE SUSCEPTIBLE ORGANISM 3+ ENTEROCOCCUS AVIUM These AST results were performed on the Microscan ID and AST system METHOD MIN. INHIB. CONC. (MCG/ML) AMPICILLIN SUSCEPTIBLE VANCOMYCIN SUSCEPTIBLE GENTAMICIN SYNERGY ACTIVE IN SYNERGY STREPTOMYCIN SYNERGY ACTIVE IN SYNERGYTEST:Blood Culture, Second Order STATUS:Auth (Verified) BODY SITE: SOURCE:Blood COLLECTED DATE/TIME:05/09/22 4:00 PMBlood Culture, Second Order SPECIMEN DESCRIPTION : BLOOD RT HAND SPECIAL REQUESTS : NONE CULTURE : NO GROWTH 5 DAYS. REPORT STATUS : FINAL 05/14/2022TEST:Blood Culture STATUS:Auth (Verified) BODY SITE: SOURCE:Blood COLLECTED DATE/TIME:05/09/22 3:20 PMBlood Culture SPECIMEN DESCRIPTION : BLOOD L WRIST SPECIAL REQUESTS : NONE CULTURE : NO GROWTH 5 DAYS. REPORT STATUS : FINAL 2Radiology Reports Exam Date Time Procedure Performing Provider Status 05/16/22 10:44 AM Abdomen AP Nalini Kaye; Auth (Verified ) Notes:(Abdomen AP) Reason For Exam: ConstipationRESULT: XR Abdomen AP XR Abdomen AP 1 view INDICATION/CLINICAL QUESTION: Reason: Constipation; Clinical Question(s): Constipation COMPARISON: CT 05/09/2022 FINDINGS: Moderate stool retention. No evidence of pneumoperitoneum. Partially visualized ICD. Status post median sternotomy. IMPRESSION: Moderate stool retention. WSN: [id number] Ordering Physician: Luisito Colin Dictated By: Tejinder Mcgee MD Dictated Date/Time: 05/16/22 10:57 a Reviewed By: Tejinder Mcgee MD Signed By: Tejinder Mcgee MD Signed Date/Time: 05/16/22 10:57 am Transcribed By: JEFFREY Transcribed Date/Time: 05/16/22 10:55 am Exam Date Time Procedure Performing Provider Status 05/09/22 4:24 PM Chest Portable Maverick Lemon; Auth (Verified) Notes:(Chest Portable) Reason For Exam: Shortness of BreathRESULT: Chest Portable Chest Portable Hx of Present Illness: Pt from SNF for hypotension, was recently started on dialysis 3 wks ago. Pt'sprimary complaint is pain to buttocks r t known pressure ulcer.; Reason: Shortness of Breath; Clinical Question(s): CHF COMPARISON: 04/24/2021. FINDINGS: LINES AND TUBES: Dual-lumen catheter terminates in the low SVC. Single lead AICD in unchanged position with the tip in the area of the right ventricle. LUNGS AND PLEURA: Low lung volumes Clear lungs. Normal pulmonary vascularity. No pleural effusion. No pneumothorax. HEART, MEDIASTINUM AND TIM: Heart size is at upper limits of normal. Mild central vascular congestion. BONES AND SOFT TISSUES: No acute abnormality. IMPRESSION: Low lung volumes. Mild central vascular congestion. WSN: [id number] Ordering Physician: Sal Agee Dictated By: Kelin Zacarias MD Dictated Date/Time: 05/09/22 4:47 pm Reviewed By: Kelin Zacarias MD Signed By: Kelin Zacarias MD Signed Date/Time: 05/09/22 4:47 pm Transcribed By: JEFFREY Transcribed Date/Time: 05/09/22 4:46 pm Vital Signs Most recent to oldest 1 2 3 [Reference Range]: Height 195 cm 195 cm 195 cm (06/02/22 11:07 AM) (06/02/22 5:00 AM) (06/01/22 5:08 PM) Weight 90.2 kg 90.2 kg 89.6 kg (05/30/22 6:58 AM) (05/30/22 6:33 AM) (05/24/22 4 :52 AM) Oxygen Saturation [94-100 100 % 99 % 100 % %] (06/02/22 5:00 AM) (06/01/22 10:00 PM) (06/01/22 5:08 PM) Pulse Rate [55-90 bpm] 82 bpm 82 bpm 90 bpm (06/02/22 11:10 AM) (06/02/22 9:39 AM) (06/02/22 5:00 AM) Body Mass Index 23.98 kg/m2 21.91 kg/m2 [18.5-24.99 kg/m2] (05/23/22 12:39 PM) (05/10/22 6:48 PM) Body Mass Index 21.91 [18.5-24.99] (05/09/22 9:42 PM) Blood Pressure 149/80 mm Hg 98/56 mm Hg 111/66 mm Hg [90-138/55-84 mm Hg] *H* (06/02/22 9:39 AM) ( 5:00 AM) (06/02/22 11:07 AM) Respiratory Rate [16-30 18 br/min 18 br/min 17 br/mi n br/min] (06/02/22 4:50 PM) (06/02/22 5:00 AM) (06/01/22 10:00 PM) Temperature [96.8-100.4 98.2 DegF 98.2 DegF 98.0 Deg F DegF] (06/02/22 5:00 AM) (06/01/22 10:00 PM) (06/01/22 5:08 PM) Liters per Minute 6 L/min 2 L/min 2 L/min (05/23/22 3:15 PM) (05/10/22 10:00 AM) (05/10/22 9: 15 AM) Mode of Delivery (Oxygen) Room air Room air Room a ir (06/02/22 5:00 AM) (06/01/22 10:00 PM) (06/01/22 5:08 PM) Blood pressure sites Arm, left Arm, left Arm, right (06/02/22 5:00 AM) (06/01/22 10:00 PM) (06/01/22 5:08 PM) Temperature Route Oral Oral Oral (06/02/22 5:00 AM) (06/01/22 10:00 PM) (06/01/22 5:08 PM) Dry Weight 83.3 kg (05/09/22 9:42 PM) Weight Obtained Via Bed scale Other: unable to clement gh patient in the bed. Notified nurse Bed scale (05/30/22 6:33 AM) (05/25/22 6:00 AM) (05/24/22 4: 52 AM) XR Abdomen AP [facility] , CIS S: TRANSCRIBE Tejinder Mcgee MD: VERIFY Event Display: Result: Authored Date: [id number] XR Abdomen AP 1 view INDICATION/CLINICAL QUESTION: Reason: Constipation; Clinical Question(s): Constipation COMPARISON: CT 05/09/2022 FINDINGS: Moderate stool retention. No evidence of pneumoperitoneum. Partially visualized ICD. Status post median sternotomy. IMPRESSION: Moderate stool retention. WSN: [id number] Ordering Physician: Luisito Colin Dictated By: Tejinder Mgcee MD Dictated Date/Time: 05/16/22 10:57 a Reviewed By: Tejinder Mcgee MD Signed By: Tejinder Mcgee MD Signed Date/Time: 05/16/22 10:57 am Transcribed By: JEFFREY Transcribed Date/Time: 05/16/22 10:55 am Portable XR Chest Views [facility] , CIS S: TRANSCRIKelin Anthony MD: VERIFY Event Display: Result: Authored Date: [id number] Chest Portable Hx of Present Illness: Pt from SNF for hypotension, was recently started on dialysis 3 wks ago. Pt'sprimary complaint is pain to buttocks r t known pressure ulcer.; Reason: Shortness of Breath; Clinical Question(s): CHF COMPARISON: 04/24/2021. FINDINGS: LINES AND TUBES: Dual-lumen catheter terminates in the low SVC. Single lead AICD in unchanged position with the tip in the area of the right ventricle. LUNGS AND PLEURA: Low lung volumes Clear lungs. Normal pulmonary vascularity. No pleural effusion. No pneumothorax. HEART, MEDIASTINUM AND TIM: Heart size is at upper limits of normal. Mild central vascular congestion. BONES AND SOFT TISSUES: No acute abnormality. IMPRESSION: Low lung volumes. Mild central vascular congestion. WSN: [id number] Ordering Physician: Sal Agee Dictated By: Kelin Zacarias MD Dictated Date/Time: 05/09/22 4:47 pm Reviewed By: Kelin Zacarias MD Signed By: Kelin Zacarias MD Signed Date/Time: 05/09/22 4:47 pm Transcribed By: JEFFREY Transcribed Date/Time: 05/09/22 4:46 pm Patient Care team information PersonnelName: Not on Staff, PCP
--- OUTSIDE RECORDS SUMMARY | 2022-07-11 06:19 | XMS_ITS | Encounter Summary ---
:1955 Author Care Team Providers Name Role Phone Lamont Chris MD Primary Care Provider [phone] [address] Floor OTHER [phone] Reason for Visit Initial Intake Assessment and Plan 1. 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 Underwent I&D of wound. Also underwent diverting colostomy to he lp with wound healing. Per cx. and ID recs now on daptomycin an d meropenem x 14 days. Wound care - santyl and moistened kerlix and DCD bid and prn. Wound team to follow here. Low air loss mattress/pressure relief/tu rn q 2 hrs Continue barreto Optimized nutrition as able. Monitor VS and labs closely ID follow up with Dr. Avina 07/08 2. Colostomy present New - placed to help with sacral wound healing. Continue ostomy care/teaching Follow up with surgery Dr. Mckeon in 2 wks (?07/05) for bridge removal Monitor VS, labs, bowels 3. 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 End-stage renal disease HD , , Sa fu nephrology nephrocaps daily Epoetin 10,000U per nephrology will monitor 5. Coronary arteriosclerosis Continue: ASA 81 mg daily NTG 0.4 mg SL prn atorvastatin 80 mg daily metoprolol ER 25 mg daily monitor VS, labs, CP status for change. 6. Type 2 diabetes mellitus glargine 20U daily lispro per sliding scale will monitor 7. Orthostatic hypotension midodrine 5 mg q8h prn systolic BP<90 will monitor 8. Hyperlipidemia ezetimibe 10 mg daily atorvastatin 80 mg daily cholestyramine 4 gm bid will monitor 9. Chronic pain APAP 1000 mg q8h M,W,F,Matute and bid , h, Sa oxycodone 5 mg q6h prn dilaudid 2 mg q12 hr prn monitor mentation with narcotic use - do ses reduced as felt encephalopathy was partly related to opioid use primidone 50 mg daily for neuropathy will monitor 10. COVID-19 resolved Monitor for sequelae 11. Atrial fibrillation Continue: eliquis 5 mg bid for AC metoprolol ER 25 mg daily for rate contr ol Monitor VS, CP status, labs for change 12. Anemia continue Epogen as per Nephrology Discussion Note: None recorded.Patient educational handouts: No [...] Pressure 6 ft 6 in 110/60 mm[Hg] Results Lab Results None recorded. Allergies Code Code System Name Reaction Severity Onset 154741 RxNorm Bactrim ? ? ? Problems Name [...] Notes: quit 200 3 What is your code status? Full Code Do you have a medical power of Y datacap developer? What is your relationship status? Notes : Was in 2001, then had new relatio nship and broke up, so not act ually . What is your level of alcohol Moderate Notes: o ne beer/day consumption? Legal Guardian? N Do you have an out of hospital N DNR? Do you or have you ever used any N other forms of tobacco or nicotine? Have you ever been counseled for N unhealthy alcohol use? Has tobacco cessation counseling N Notes: n/a as pt no longer been provided? smokes What was the date of your most 04/21/2022 recent tobacco screening? Do you have an advanced Y directive? Do you use any illicit or N recreational drugs? Where do you live? [facility] Notes: home alone, has flight of stairs but now matamoros s a stair lift How many times per week do you 5-7 times per week consume alcohol? Functional Status Unknown. Past Encounters 06/25/2022 Pressure Injury Stage IV; Colostomy Pres ent; Asthenia; End-stage Renal Disease; Coronary Arteriosclerosis; Type 2 Diabetes Mellitus; Orthostatic Hypotension; Hyperlipidemia; Chronic Pain; Covid-19; Atrial Fibrillation; Anemia Minerva Bolden NATIONAL ACCOUNT REPRESENTATIVE: [address] [facility] [place] [address], Ph. 06/15/2022 Covid-19; Pressure Injury of Sacral Neyda on of Back Marielos Alvarez, NATIONAL ACCOUNT REPRESENTATIVE: [address] [facility] [place] [address], Ph. 06/13/2022 Pressure Injury of Sacral Region of Back ; Asthenia Marielos Alvarez, NATIONAL ACCOUNT REPRESENTATIVE: [address] [facility] [place] [address], Ph. 06/10/2022 Pressure Injury of Sacral Region of Back ; End-stage Renal Disease; Asthenia; Covid-19 Marielos Alvarez, NATIONAL ACCOUNT REPRESENTATIVE: [address] [facility] , [place] [address], Ph. 06/08/2022 Asthenia; End-stage Renal Disease; Coron tad Arteriosclerosis; Type 2 Diabetes Mellitus; Chronic Osteomyelitis of Sacrum; Orthostatic Hypotension; Hyperlipidemia; Chronic Pain; Covid-19 Bethany Cabrera MD: [address] [facility] [place] [address], Ph. 06/06/2022 Pressure Injury of Sacral Region of Back ; Coronary Arteriosclerosis Marielos Alvarez, NATIONAL ACCOUNT REPRESENTATIVE: [address] [place] [address], Ph. 06/03/2022 Pressure Injury of Sacral Region of Back ; Sepsis; End-stage Renal Disease; Atrial Fibrillation; Cardiomyopathy; Hyperlipidemia; Neuropathy; Type 2 Diabetes Mellitus; Chronic Kidney Disease Stage 4; Asth enia; Anemia; Low Blood Pressure; Hooks ry Arteriosclerosis Marielos Alvarez, NATIONAL ACCOUNT REPRESENTATIVE: [address] [facility] , [place] [address], Ph. History of Present Illness Note: <div>Zechariah is seen today for initial intake. </div><div>
</div>&lt ;div>He is a 67 yr. old male admitted to [facility] 06/24 from [facility] for continued care and rehab after a brief hosp. related to an infected ulcer and encephalopathy. </div><div>
</div><div>He presented to [facility] 06/15 from this facility due to altered MS and deterioration ofsacral wound. </div><div>
</div><div>He underwent I&D 06/16by Dr. Schroeder, then transferred to the MICU due to hypotension requiring pressors. </div><div>Operative cx. = ESBL, Klebsiella pneumoniae, and VRE. Per ID, started daptomycin and meropenem on 06/19 for 14 days. </div><div>Mcbride placed 06/[address] Vidales. </div><div>Also underwent a laparoscopic diverting loop colostomy on 06/[address] العلي to help with the healing of the ulcer. Will need follow up in [address] Mckeon for bridge removal. </div><div>Chronic barreto - cath changed. </div><div>Sacral wound tx. = santyl in wound bed, then lightly moistened kerlix, then cover with ABD bid. </div><div>Right buttocks fold skin erosion being treated with aquacel and 4x4 secured by medipore tape.</div><div>< br></div><div>Mentation/encephalopathy improved - felt multifactorial, but though labile to narcotic meds - doses reduced. </div><div>
</div><div><br&g t;</div><div>PMH: ESRD on HD, CHF due to ischemic cardiomyopathy (EF 20-25%), HTN, AODM with neuropathy, anemia, PAF on Eliquis with AICD/pacer in place, discoid lupus, CAD-s/p NSTEMI 09/2018 (3 previous MIs), HLD, OA (jalyn. wrist) and vasculogenic ED.</div><div>MOLST: full code</div> Review of Systems ? PHC Brief Geriatric ROS Reported By: Patient Constitutional: Constitutional: no fever, fa tigue Eyes: Eyes: no irritation, no visi on changes ENMT: ENMT: no nose/sinus problems , no loss of hearing Respiratory: Respiratory: no shortness of breath, no wheezing, cough Cardiovascular: Cardiovascular: no chest carlos n, no palpitations, no cyanosis, no lightheadedness, edema Gastrointestinal: Gastrointestinal: no diarrhe a, no heartburn, no nausea, no vomiting, recent change in b owel habits Genitourinary: Genitourinary: no difficulty urinating Musculoskeletal: Musculoskeletal: no arthralg ias/joint pain, muscle weakness, swelling in the extremities Neurologic: Neurologic: no headache, no dizziness, no loss of consciousness, no slurred speech, no seizures, weakness Psychiatric: Psychiatric no psychiatric o r emotional problems / concerns Physical Exam ? General Adult Exam Reported By: Patient Constitutional: General Appearance: well-dev eloped. Level of Distress: NAD. Ambulation: ambulation with walker, in wheelchair; in bed for exam Psychiatric: Insight: good judgement. Men ryland Status: [...] Auscultation: irregula rly irregular Abdomen: Bowel Sounds: soft, no guard ing, non-distended, no tenderness; ostomy present left abd. - b ag filled with small amt. fecal material and gas Musculoskeletal:: Extremities: no cyanosis, ed rashid; 2+ BLE. Joints, Bones, and Muscles (normal) normal movement of all extremities; upper extremity/hand [...] (hosp) : wbc 17.2, hgb 7.4, plt 328.</div><div>
</div>
--- OUTSIDE RECORDS SUMMARY | 2022-07-11 06:19 | XMS_ITS | Encounter Summary ---
:1955 Author Care Team Providers Name Role Phone Lamont Chris MD Primary Care Provider [phone] [address] Floor OTHER [phone] Reason for Visit Acute Rounding Visit Assessment and Plan 1. Pressure injury stage [...] ID follow up with Dr. Avina 07/08 daptomycin 700 mg after dialysis to 06/21 3 meropenem 500 mg after dialysis to 07/03 dilaudid 2 mg q12 hr prn before dressing changes oxycodone 5 mg q6hr prn tylenol 1000 mg q8hr 2. Colostomy present New - placed to help with sacral wound healing. Continue ostomy care/teaching Follow up with surgery Dr. Mckeon in 2 wks (?07/05) for bridge removal Monitor VS, labs, bowels 3. Asthenia PT/OT/SHIFT MGR will monitor and support as needed 4. End-stage renal disease HD , , [facility] nephrology nephrocaps daily Epoetin 10,000U per nephrology midodrine 5 mg q8hr will monitor 5. Coronary arteriosclerosis Continue: ASA 81 mg daily NTG 0.4 mg SL prn atorvastatin 80 mg daily metoprolol ER 25 mg daily monitor VS, labs, CP status for change. 6. Type 2 diabetes mellitus glargine 20U daily lispro per sliding scale will monitor 7. Orthostatic hypotension midodrine 5 mg q8hr will monitor 8. Hyperlipidemia ezetimibe 10 mg daily atorvastatin 80 mg daily cholestyramine 4 gm bid will monitor 9. Chronic pain APAP 1000 mg q8h M,W,F,Matute and bid Tu, T h, Sa oxycodone 5 mg q6h prn dilaudid 2 mg q12 hr prn dsg change monitor mentation with narcotic use - do [...] Code Code System Name Reaction Severity Onset 617455 RxNorm Bactrim ? ? ? Problems Name [...] you have a medical power of Y breakfast cook? What was the date of your most [...] alcohol use? Functional Status Unknown. Past Encounters 06/27/2022 Pressure Injury Stage IV; Colostomy Pres ent; Asthenia; End-stage Renal Disease; Coronary Arteriosclerosis; Type 2 Diabetes Mellitus; Orthostatic Hypotension; Hyperlipidemia; Chronic Pain; Covid-19; Atrial Fibrillation; Anemia Marielos Alvarez CARDROOM PLASTIC CARD GRADER: [address] , [place] [address], Ph. 06/25/2022 Pressure Injury Stage IV; Colostomy Pres ent; Asthenia; End-stage Renal Disease; Coronary Arteriosclerosis; Type 2 Diabetes Mellitus; Orthostatic Hypotension; Hyperlipidemia; Chronic Pain; Covid-19; Atrial Fibrillation; Anemia Minerva Bolden CARDROOM PLASTIC CARD GRADER: [address] [place] [address], Ph. 06/15/2022 Covid-19; Pressure Injury of Sacral Neyda on of Back Marielos Alvarez CARDROOM PLASTIC CARD GRADER: [address] [place] [address], Ph. 06/13/2022 Pressure Injury of Sacral Region of Back ; Asthenia Marielos Alvarez CARDROOM PLASTIC CARD GRADER: [address] [place] [address], Ph. 06/10/2022 Pressure Injury of Sacral Region of Back ; End-stage Renal Disease; Asthenia; Covid-19 Marielos Alvarez, CARDROOM PLASTIC CARD GRADER: [address] [place] [address], Ph. 06/08/2022 Asthenia; End-stage Renal Disease; Coron tad Arteriosclerosis; Type 2 Diabetes Mellitus; Chronic Osteomyelitis of Sacrum; Orthostatic Hypotension; Hyperlipidemia; Chronic Pain; Covid-19 Bethany Cabrera MD: [address] [place] [address], Ph. 06/06/2022 Pressure Injury of Sacral Region of Back ; Coronary Arteriosclerosis Marielos Alvarez CARDROOM PLASTIC CARD GRADER: [address] [place] [address], Ph. 06/03/2022 Pressure Injury of Sacral Region of Back ; Sepsis; End-stage Renal Disease; Atrial Fibrillation; Cardiomyopathy; Hyperlipidemia; Neuropathy; Type 2 Diabetes Mellitus; Chronic Kidney Disease Stage 4; Asth enia; Anemia; Low Blood Pressure; Hooks ry Arteriosclerosis Marielos Alvarez CARDROOM PLASTIC CARD GRADER: [address] [place] [address], Ph. History of Present Illness Note: <div>seen today for acute rounding visit-</div><div> 67 yr. old male admitted to SNF 06/24 from [facility] [place] continued care and rehab after a brief hosp. related to an infected ulcer and encephalopathy. </div><div>
</div><div>He presented to [facility] 06/15 from this facility due to altered MS and deterioration of sacral wound. </div><div>
</div><div>He underwent I&D 06/[address] Schroeder, then transferred to the MICU [...] bridge removal. </div><div>Chronic barreto - cath changed. < /div><div>Sacral wound tx. = santyl in wound bed, then lightly moistened kerlix, then coverwith ABD bid. </div><div>Right buttocks fold skin erosion being treated with aquacel and4x4 secured by medipore tape.</div><div>
</div><div>Mentation/encephalopathy improved - felt multifactorial, but though labile to narcotic meds - doses reduced. </div ><div>
</div><div>CAOX3 vague, lungs clear, ostomy intact, did not visualize the wound today, he is complaining of feeling itchy after the dialysis, will contginue to monitor this and consider a fentanyl patch</div>Review of Systems: ROS as noted in the [...] k 3.6 bun 39 creat 2.73 gfr 23</div><d iv>
</div>
--- OUTSIDE RECORDS SUMMARY | 2022-07-11 06:19 | XMS_ITS | Encounter Summary ---
:1955 Author Care Team Providers Name Role Phone Lamont Chris MD Primary Care Provider [phone] [facility] 1st Floor OTHER [phone] Reason for Visit Admitting H&P admission history and physical examinati on Assessment and Plan 1. Asthenia PT/OT/MANAGER STYLIST will monitor and support as needed 2. End-stage renal disease HD , , [facility] nephrology nephrocaps daily Epoetin 10,000U per nephrology will monitor 3. Coronary arteriosclerosis ASA 81 mg daily NTG 0.4 mg SL prn atorvastatin 80 mg daily metoprolol ER 25 mg daily will monitor 4. Type 2 diabetes mellitus glargine 15U at hs lispro per sliding scale will monitor 5. Chronic osteomyelitis of sacrum vancomycin 500 mg IV , Sa through 06/21/22 cefazolin 2 gm IV , Sa through 09/11 fluconazole 400 mg , Sa through 09/11 will monitor fu I.D. 6. Orthostatic hypotension midodrine 5 mg q8h prn systolic BP<90 will monitor 7. Hyperlipidemia ezetimibe 10 mg daily atorvastatin 80 mg daily cholestyramine 4 gm bid will monitor 8. Chronic pain APAP 1000 mg q8h M,W,F,Matute and bid , , oxycodone 10 mg q6h prn primidone 50 mg daily for neuropathy will monitor 9. COVID-19 tested positive 06/07/22 feeling fine with good oxygen saturation at this time may benefit from remdesivir or other vaishnavi atment, but patient and son decline treatment or transfer to hospital at this time discussed with patient transfer to [facility] if develops any symptoms Discussion Note: None recorded.Patient educational handouts: No [...] Pressure 6 ft 6 in 110/72 mm[Hg] Results Lab Results None recorded. Allergies Code Code System Name Reaction Severity Onset 912378 RxNorm Bactrim ? ? ? Problems Name [...] you have a medical power of Y mergers and acquisitions attorney? What was the date of your [...] N recreational drugs? Where do you live? [facility] Notes: home alone, has flight of stairs but now matamoros s a stair lift What is your relationship status? Notes : Was in 2001, then had new relatio nship and broke up, so not act ually . Functional Status Unknown. Past Encounters 06/08/2022 Asthenia; End-stage Renal Disease; Coron tad Arteriosclerosis; Type 2 Diabetes Mellitus; Chronic Osteomyelitis of Sacrum; Orthostatic Hypotension; Hyperlipidemia; Chronic Pain; Covid-19 Bethany Cabrera MD: [address] [facility] [place] [address], Ph. 06/06/2022 Pressure Injury of Sacral Region of Back ; Coronary Arteriosclerosis Marielos Alvarez FLAT SPRING ASSEMBLER: [address] [facility] [place] [address], Ph. 06/03/2022 Pressure Injury of Sacral Region of Back ; Sepsis; End-stage Renal Disease; Atrial Fibrillation; Cardiomyopathy; Hyperlipidemia; Neuropathy; Type 2 Diabetes Mellitus; Chronic Kidney Disease Stage 4; Asth enia; Anemia; Low Blood Pressure; Hooks ry Arteriosclerosis Marielos Alvarez FLAT SPRING ASSEMBLER: [address] [facility] [place] [address], Ph. 05/09/2022 Low Blood Pressure; Sepsis Marielos Alvarez FLAT SPRING ASSEMBLER: [address] [facility] [place] [address], Ph. History of Present Illness Note: <div>This 67 year old man was admitted to [facility] on 06/02/22 for rehab and continued care. </div><div>
</div><div>Medical history is remarkable for CAD s/p CABG, PAF on AC, cardiomyopathy with reduced ER (35%), s/p ICD placement, DM, hypertension, hyperlipidemia, ESRD started on HD March 2022, DM with neuropathy</div><div>
</div><div>Patient presented to ER on 05/19/22 from SNF with episodes of hypotension. He was found to have necrotic wound with need for debridement and antibiotic therapy. Patient was taken to OR on 05/10/22 for sacral wound debridement. Sacral wound cultures grew E COli and enterococcus avium. Antibiotics were changed to vancomycin and cefazolin.</div><div>
</div><div>Patient had subsequent wound debridement on 05/23/22 with placement of wound vac. Wound vac was removed on 06/01 with additional bedside debridement.</div><div>
</div><div>It was recommended to continue vancomycin and IV cefazolin through 06/21/22 as well as fluconazole</div><div>
</div><div>Note: patient had hospitalization 03/27/22-04/14/22 at [facility] for generalized weakness and fatigue and was found to have worsening renal function as well as HFrER (EF 20-25%). He was started on HD at that time.</div><div>
</div><div>Of note, it was reported to me that patient tested positive for COVID-19 yesterday. Patient is feeling well without cough, dyspnea, or other symptoms.</div><div>
</div><div>MOLST: full code - signed 06/02/22</div>Review of Systems: ROS as noted in the HPI Review of Systems ? Notes: <div>All others [...] 3. 9 bun 33 creat 3.09 gfr 20</div>
--- OUTSIDE RECORDS SUMMARY | 2022-07-11 06:19 | XMS_ITS | Encounter Summary ---
:1955 Author Care Team Providers Name Role Phone Lamont Chris MD Primary Care Provider [phone] [address] Floor OTHER [phone] Reason for Visit Acute Rounding Visit Assessment [...] care consult. Monitor for healing. encourage oob 2. Asthenia PT OT eval and treat fall precautions frequent safety checks Discussion Note: None recorded.Patient educational handouts: No [...] Code Code System Name Reaction Severity Onset 568505 RxNorm Bactrim ? ? ? Problems Name [...] you have a medical power of Y corporate attorney? What was the date of your [...] N recreational drugs? Where do you live? [facility] Notes: home alone, has flight of stairs but now matamoros s a stair lift What is your relationship status? Notes : Was in 2001, then had new relatio nship and broke up, so not act ually . Functional Status Unknown. Past Encounters 06/13/2022 Pressure Injury of Sacral Region of Back ; Asthenia Marielos Alvarez, PROCESS DEVELOPMENT ENGINEER: [address] [facility] , [place] [address], Ph. 06/10/2022 Pressure Injury of Sacral Region of Back ; End-stage Renal Disease; Asthenia; Covid-19 Marielos Alvarez, PROCESS DEVELOPMENT ENGINEER: [address] [facility] , [place] [address], Ph. 06/08/2022 Asthenia; End-stage Renal Disease; Coron tad Arteriosclerosis; Type 2 Diabetes Mellitus; Chronic Osteomyelitis of Sacrum; Orthostatic Hypotension; Hyperlipidemia; Chronic Pain; Covid-19 Bethany Cabrera MD: [address] [place] [address], Ph. 06/06/2022 Pressure Injury of Sacral Region of Back ; Coronary Arteriosclerosis Marielos Alvarez, PROCESS DEVELOPMENT ENGINEER: [address] [facility] , [place] [address], Ph. 06/03/2022 Pressure Injury of Sacral Region of Back ; Sepsis; End-stage Renal Disease; Atrial Fibrillation; Cardiomyopathy; Hyperlipidemia; Neuropathy; Type 2 Diabetes Mellitus; Chronic Kidney Disease Stage 4; Asth enia; Anemia; Low Blood Pressure; Hooks ry Arteriosclerosis Marielos Alvarez, PROCESS DEVELOPMENT ENGINEER: [address] [place] [address], Ph. History of Present Illness Note: <div>seen today for acute rounding visit, CAOx3 sitting up in bed, he declined to get oob this morning, he consistently tells the staff later-or I am too tired , he has lack of motivation for activity, wbc elevated, will recheck Wed</div>Review of Systems: ROS as noted in the [...]
--- OUTSIDE RECORDS SUMMARY | 2022-07-11 06:19 | XMS_ITS | Encounter Summary ---
:1955 Author Care Team Providers Name Role Phone Lamont Chris MD Primary Care Provider [phone] [address] Floor OTHER [phone] Reason for Visit Acute Rounding Visit Assessment and Plan 1. 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 Underwent I&D of wound. Also underwent diverting colostomy to he lp with wound healing. Per cx. and ID recs now on daptomycin an d meropenem x 14 days, to be given by nursing after HD Wound care - santyl and moistened kerlix [...] dressing changes oxycodone 5 mg q6hr prn fentanyl patch 12 mcg-family in agreemen t tylenol 1000 mg q8hr 2. End-stage renal disease HD , , [facility] nephrology nephrocaps daily Epoetin 10,000U per nephrology midodrine 5 mg q8hr will monitor Discussion Note: None recorded.Patient educational handouts: No [...] Pressure 6 ft 6 in 100/61 mm[Hg] Results Lab Results None recorded. Allergies Code Code System Name Reaction Severity Onset [id number] RxNorm Bactrim ? ? ? Problems Name [...] you have a medical power of Y metal tube cutter? What is your relationship status? Notes : [...] N recreational drugs? Where do you live? [facility] Notes: home alone, has flight of stairs but now matamoros s a stair lift How many times per week do you 5-7 times per week consume alcohol? Functional Status Unknown. Past Encounters 07/01/2022 Pressure Injury Stage IV; End-stage Aby l Disease Marielos Alvarez THRESHING OPERATOR: [address] [place] [address], Ph. 06/30/2022 Pressure Injury Stage IV; Osteomyelitis of Sacrum; Colostomy Present; Asthenia; End-stage Renal Disease; Cardiomyopathy; Congestive Heart Failure; Coronary Arteriosclerosis; Atrial Fibrillation; Type 2 Diabetes Mellitus; Hyponatremia; Orthost atic Hypotension; Hyperlipidemia; Covid- 19; Anemia; Neuropathy; Insomnia Autumn Kerr MD: [address] [place] [address], Ph. 06/29/2022 Pressure Injury Stage IV Marielos Alvarez THRESHING OPERATOR: [address] [place] [address], Ph. 06/27/2022 Pressure Injury Stage IV; Colostomy Pres ent; Asthenia; End-stage Renal Disease; Coronary Arteriosclerosis; Type 2 Diabetes Mellitus; Orthostatic Hypotension; Hyperlipidemia; Chronic Pain; Covid-19; Atrial Fibrillation; Anemia Marielos Alvarez THRESHING OPERATOR: [address] [place] [address], Ph. 06/25/2022 Pressure Injury Stage IV; Colostomy Pres ent; Asthenia; End-stage Renal Disease; Coronary Arteriosclerosis; Type 2 Diabetes Mellitus; Orthostatic Hypotension; Hyperlipidemia; Chronic Pain; Covid-19; Atrial Fibrillation; Anemia Minerva Bolden NP: [address] [place] [address], Ph. 06/15/2022 Covid-19; Pressure Injury of Sacral Neyda on of Back Marielos Alvarez, THRESHING OPERATOR: [address] [facility] , [place] [address], Ph. 06/13/2022 Pressure Injury of Sacral Region of Back ; Asthenia Marielos Alvarez, THRESHING OPERATOR: [address] [place] [address], Ph. 06/10/2022 Pressure Injury of Sacral Region of Back ; End-stage Renal Disease; Asthenia; Covid-19 Marielos Alvarez, THRESHING OPERATOR: [address] [place] [address], Ph. 06/08/2022 Asthenia; End-stage Renal Disease; Coron tad Arteriosclerosis; Type 2 Diabetes Mellitus; Chronic Osteomyelitis of Sacrum; Orthostatic Hypotension; Hyperlipidemia; Chronic Pain; Covid-19 Bethany Cabrera MD: [address] [place] [address], Ph. 06/06/2022 Pressure Injury of Sacral Region of Back ; Coronary Arteriosclerosis Marielos Alvarez, THRESHING OPERATOR: [address] [place] [address], Ph. 06/03/2022 Pressure Injury of Sacral Region of Back ; Sepsis; End-stage Renal Disease; Atrial Fibrillation; Cardiomyopathy; Hyperlipidemia; Neuropathy; Type 2 Diabetes Mellitus; Chronic Kidney Disease Stage 4; Asth enia; Anemia; Low Blood Pressure; Hooks ry Arteriosclerosis Marielos Alvarez, THRESHING OPERATOR: [address] [place] [address], Ph. History of Present Illness Note: <div>seen today for acute rounding visit, CAOx3 states he has no pain, and the fentanyl patchis working well, ostomy bag changed, ostomy beefy red large bud, moist, lungs clear, dressings on legs dry intact, none of his wounds visualized today, followed by Dr Garcia, he was hoyered to the wheelchair and to the PT gym for exercises</div>Review of Systems: ROS as noted in the HPI Review of Systems None recorded. Physical Exam ? General Adult Exam Reported By: Patient Constitutional: General Appearance: well-dev eloped. Level of Distress: NAD, chronically ill. Ambulation: in wheelchair; currently in bed, at baseline used walker, curren tly needing mckenzie lift for transfers Psychiatric: Insight: ; limited insight. Mental Status: active and alert; lack of motivation. [...]
--- OUTSIDE RECORDS SUMMARY | 2022-07-11 06:19 | XMS_ITS | Encounter Summary ---
:1955 Author Care Team Providers Name Role Phone Lamont Chris MD Primary Care Provider [phone] [address] Floor OTHER [phone] Reason for Visit Acute Rounding Visit Assessment [...] oxycodone 5 mg q6hr prn fentanyl patch 25 mcg-family in agreemen t tylenol 1000 mg q8hr Discussion Note: None recorded.Patient educational handouts: No [...] in 206.8 lbs 23.9 kg/m2 99/71 mm[Hg] Results Lab Results None recorded. Allergies Code Code System Name Reaction Severity Onset [id number] RxNorm Bactrim ? ? ? Problems Name [...] you have a medical power of Y washer meat? What was the date of your most 04/21/2022 recent tobacco screening? Do you have an advanced Y directive? Do you use any illicit or N recreational drugs? Where do you live? [facility] Notes: home alone, has flight of stairs [...] alcohol use? Functional Status Unknown. Past Encounters 06/29/2022 Pressure Injury Stage IV Marielos Alvarez, HYDROELECTRIC PLANT ELECTRICAL ENGINEER: [address] [place] [address], Ph. 06/27/2022 Pressure Injury Stage IV; Colostomy Pres ent; Asthenia; End-stage Renal Disease; Coronary Arteriosclerosis; Type 2 Diabetes Mellitus; Orthostatic Hypotension; Hyperlipidemia; Chronic Pain; Covid-19; Atrial Fibrillation; Anemia Marielos Alvarez HYDROELECTRIC PLANT ELECTRICAL ENGINEER: [address] [place] [address], Ph. 06/25/2022 Pressure Injury Stage IV; Colostomy Pres ent; Asthenia; End-stage Renal Disease; Coronary Arteriosclerosis; Type 2 Diabetes Mellitus; Orthostatic Hypotension; Hyperlipidemia; Chronic Pain; Covid-19; Atrial Fibrillation; Anemia Minerva Bolden HYDROELECTRIC PLANT ELECTRICAL ENGINEER: [address] [place] [address], Ph. 06/15/2022 Covid-19; Pressure Injury of Sacral Neyda on of Back Marielos Alvarez HYDROELECTRIC PLANT ELECTRICAL ENGINEER: [address] [place] [address], Ph. 06/13/2022 Pressure Injury of Sacral Region of Back ; Asthenia Marielos Alvarez HYDROELECTRIC PLANT ELECTRICAL ENGINEER: [address] [place] [address], Ph. 06/10/2022 Pressure Injury of Sacral Region of Back ; End-stage Renal Disease; Asthenia; Covid-19 Marielos Alvarez, HYDROELECTRIC PLANT ELECTRICAL ENGINEER: [address] [place] [address], Ph. 06/08/2022 Asthenia; End-stage Renal Disease; Coron tad Arteriosclerosis; Type 2 Diabetes Mellitus; Chronic Osteomyelitis of Sacrum; Orthostatic Hypotension; Hyperlipidemia; Chronic Pain; Covid-19 Bethany Cabrera MD: [address] [facility] [address], [place] [address], Ph. 06/06/2022 Pressure Injury of Sacral Region of Back ; Coronary Arteriosclerosis Marielos Alvarez, HYDROELECTRIC PLANT ELECTRICAL ENGINEER: [address] [facility] , [place] [address], Ph. 06/03/2022 Pressure Injury of Sacral Region of Back ; Sepsis; End-stage Renal Disease; Atrial Fibrillation; Cardiomyopathy; Hyperlipidemia; Neuropathy; Type 2 Diabetes Mellitus; Chronic Kidney Disease Stage 4; Asth enia; Anemia; Low Blood Pressure; Hooks ry Arteriosclerosis Marielos Alvarez, HYDROELECTRIC PLANT ELECTRICAL ENGINEER: [address] [facility] , [place] [address], Ph. History of Present Illness Note: <div>seen today for acute rounding visit, CAOx3 can be very vague, lungs clear, trace edema, now has dressings on BLE for open wounds, sacral wound followed by Dr Garcia and dressing is changedper orders, he needs a specialty bed that with assist with turning him and avoiding pressure spots, he currently has an air mattress</div>Review of Systems: ROS as noted in the HPI Review of Systems None recorded. Physical Exam ? General Adult Exam Reported By: Patient Constitutional: General Appearance: well-dev eloped. Level of Distress: acutely ill. Ambulation: ; in bed for exa m Psychiatric: Insight: ; limited insight. Mental Status: [...]
--- OUTSIDE RECORDS SUMMARY | 2022-07-11 06:19 | XMS_ITS | Continuity of Care Document ---
:1955 Author Organization [facility] Address [address] [place] [id number]- Care Team Providers Name Role Phone Dot PITTMAN, Lamont Nuñez Primary Care Physician En[place] [facility] [place](s): 06/15/22 - 06/24/[address] [id number] Encounter Diagnosis Infected sacral decubitus ulcer. (Final) - 06/15/22 Sacral decubitus ulcer (Final) - 06/21/22 Discharge Disposition: A-Transfer SNF Attending Physician: Mickey Stanley MD Admitting Physician: Diogo García MD Referring Physician: Not on Staff, Referring MD Allergies, Adverse Reactions, Alerts Substance Reaction Severity Status Bactrim1 Active 1Rash Immunizations Given and Recorded Vaccine Date Status [...] pneumococcal 23-valent vaccine 10/18/12 Recorded Medications acetaminophen 500 mg oral tablet 2 tablet = 1,000 mg, By Mouth, Every 8 hours, 1000mg every 8 hours for 5 days and then 1000mg every 8 hours PRN for pain, Maintenance, 06/16/22 12:11:00 EDT, ; Start Date: 06/16/22 Status: Orderedaspirin 81 mg oral delayed release tablet 81 mg, 1, tablet, By Mouth, Daily, Refills 0, Maintenance, 05/09/22 19:58:00 EDT, ; Start Date: 05/09/22 Status: OrderedBenadryl Allergy 25 mg oral tablet 1 tablet = 25 mg, By Mouth, Every 8 hours, PRN as needed for itching, 0 Refills, Maintenance, 06/16/22 1:13:00 EDT, ; Start Date: 06/16/22 Status: Orderedcalcium and vitamin D combination 600 mg-125 u oral tablet 1 tablet, By Mouth, Daily, 0 Refills, Maintenance, 05/09/22 20:06:00 EDT, Tablet, ; Start Date: 05/09/22 Status: Orderedcholestyramine 4 g/4.8 g oral powder for reconstitution = 4 Gm, By Mouth, 2 times a day with meals, 0 Refills, Maintenance, 05/09/22 19:59:00 EDT, ; Start Date: 05/09/22 Status: OrderedDAPTOmycin 350 mg intravenous injection = 700 mg, IV Push Slowly, after dialysis, Daptomycin 700mg IV AFTER Hemodialysis on Tuesdays//Saturdays. End date 07/03/2022, # 10 each, 0 Refills, Maintenance, 06/24/22 15:43:00 EDT, Partial fill upon patient request if the prescription is f... Start Date: 06/24/22 Status: OrderedDilaudid 2 mg oral tablet 1 tablet = 2 mg, By Mouth, Every 12 hours, PRN Pain , Severe, Please give before dressing changes, #12 tablet, 0 Refills, Maintenance, 06/24/22 16:49:00 EDT, Tablet, Partial fill upon patient request if the prescription is for a schedule II opioid drug. Start Date: 06/24/22 Status: OrderedDOK sodium 100 mg oral capsule 1 capsule = 100 mg, By Mouth, Daily, 0 Refills, Maintenance, 05/09/22 19:59:00 EDT, ; Start Date: 05/09/22 Status: OrderedDulcolax 10 mg rectal suppository 1 supp = 10 mg, Rectally, Daily, PRN as needed for constipation, if no BM in 3 days, 0 Refills, Maintenance, 05/09/22 19:59:00 EDT, ; Start Date: 05/09/22 Status: OrderedEliquis 5 mg oral tablet 1 tablet = 5 mg, By Mouth, 2 times a day, 0 Refills, Maintenance, 05/09/22 19:57:00 EDT, ; Start Date: 05/09/22 Status: Orderedepoetin ciara 91086 u/ml injectable solution = 10,000 units, IV Infusion, Daily, ON Mon, Mon & only, Maintenance, 06/16/22 12:16:00 EDT, ; Start Date: 06/16/22 Status: OrderedFlonase 50 mcg/inh nasal spray 1 sprays, Nares, Both, Daily, 0 Refills, Maintenance, 05/09/22 20:00:00 EDT, ; Start Date: 05/09/22 Status: OrderedGlucaGen 1 mg injection = 1 mg, Intramuscular, Daily, PRN Blood Glucose, 1mg/0.2ml, 0 Refills, Maintenance, 05/09/22 20:00:00 EDT, ; Start Date: 05/09/22 Status: Orderedglucose 40% oral gel 1 application, By Mouth, Daily, PRN Blood Glucose, 0 Refills, Maintenance, 05/09/22 20:01:00 EDT, ; Start Date: 05/09/22 Status: OrderedHYDROmorphone Inj 0.5 mg, Injection, IV Push Slowly, Every 2 hours, PRN for Other, for wound care if needed, Routine, 06/18/22 9:24:00 EDT Start Date: 06/18/22 Stop Date: 06/25/22 Status: DiscontinuedInsulin Glargine Inj 0.2 mL = 20 units, Subcutaneous Injection, Daily in AM, 0 Refills, Maintenance, 06/24/22 15:38:00 EDT, Injection, Partial fill upon patient request if the prescription is for a schedule II opioid drug. Start Date: 06/24/22 Status: Orderedinsulin lispro 100 u/ml subcutaneous injection 4-12 units, Subcutaneous Injection, 3 times a day before meals, << Sliding Scale Comments >> 150 - 199 4 units Call if less than 70 200 - 249 6 units 250 - 299 8 units 300 - 349 10 units 350 - 399 12 units Call if greater than 400 <... Start Date: 06/24/22 Status: OrderedLipitor 80 mg oral tablet 1 tablet = 80 mg, By Mouth, Daily at bedtime, 0 Refills, Maintenance, 05/09/22 19:58:00 EDT, ; Start Date: 05/09/22 Status: Orderedmelatonin 5 mg oral tablet 1 tablet = 5 mg, By Mouth, Daily at bedtime, PRN as needed for insomnia, 0 Refills, Maintenance, 05/09/22 20:06:00 EDT, ; Start Date: 05/09/22 Status: Orderedmeropenem 500 mg intravenous powder for injection = 500 mg, IV Infusion, Daily, for 9 days, Meropenem 500mg IV daily . ON dialysis days/ Tuesdays//Saturdays, please give AFTER hemodialysis End date 07/03/2022, # 9 each, 0 Refills, Acute 07/03/22 15:46:00 EST, 06/24/22 15:46:00 EDT, Partial... Start Date: 06/24/22 Stop Date: 07/03/22 Status: Orderedmidodrine 5 mg oral tablet 5 mg, 1, tablet, By Mouth, 3 times a day, Refills 0, Maintenance, 05/09/22 20:07:00 EDT, ; Start Date: 05/09/22 Status: Orderedmidodrine 5 mg oral tablet 5 mg, Tablet, By Mouth, 06/24/22 14:00:00 EDT Start Date: 06/24/22 Stop Date: 06/24/22 Status: CompletedNephrocap Capsule 1, capsule, By Mouth, Daily, Refills 0, Maintenance, 06/02/22 14:45:00 EDT, Capsule, ; Start Date: 06/02/22 Status: OrderedNitrostat 0.4 mg sublingual tablet 1 tablet = 0.4 mg, Sublingual, Every 5 minutes, PRN as needed for chest pain, not to exceed 3 doses/15 min--if pain persists, seek medical attention, 0 Refills, Maintenance, 05/09/22 20:08:00 EDT, Tablet, ; Start Date: 05/09/22 Status: OrderedoxyCODONE 5 mg oral tablet 5 mg, 1, tablet, By Mouth, Every 6 hours, PRN, # 15 tablet, Refills 0, Tot. Refills 0, Maintenance, Pain , Moderate, 06/24/22 16:48:00 EDT, Print Requisition, Partial fill upon patient request if the prescription is for a schedule II opioid drug. Start Date: 06/24/22 Status: Orderedprimidone 50 mg oral tablet 50 mg, 1, tablet, By Mouth, Daily at bedtime, Refills 0, Maintenance, 05/09/22 20:10:00 EDT, ; Start Date: 05/09/22 Status: Orderedsaccharomyces boulardii lyo 250 mg oral capsule 1 capsule = 250 mg, By Mouth, Every 12 hours, 0 Refills, Maintenance, 06/16/22 1:22:00 EDT, Capsule,; Start Date: 06/16/22 Status: OrderedSantyl 250 u/gm ointment 1 application, Topically, 3 times a day, PRN as needed, COCCYX, Maintenance, 06/16/22 12:29:00 EDT, Ointment, ; Start Date: 06/16/22 Status: OrderedSenna 8.6 mg oral tablet 17.2 mg, 2, tablet, By Mouth, Daily, Refills 0, Maintenance, 06/02/22 14:48:00 EDT, Tablet, ; Start Date: 06/02/22 Status: OrderedToprol XL 25 mg oral tablet, extended release 25 mg, 1, tablet, By Mouth, Daily, Refills 0, Maintenance, 05/09/22 20:06:00 EDT, ; Start Date: 05/09/22 Status: OrderedVashe Topical Solution 1 applicator, Topically, 2 times a day, COCCYX, 0 Refills, Maintenance, Solution Start Date: 06/02/22 Status: OrderedVitamin C 1000 mg oral tablet 1 tablet = 1,000 mg, By Mouth, Daily, Maintenance, 06/16/22 12:12:00 EDT, Tablet, ; Start Date: 06/16/22 Status: OrderedZetia 10 mg oral tablet 1 tablet = 10 mg, By Mouth, Daily, 0 Refills, Maintenance, 05/09/22 20:00:00 EDT, ; Start Date: 05/09/22 Status: Ordered Problem List Condition Confirmation Course Effective Dates Status Health Stat us Informant Carotid stenosis Confirmed Active CKD (chronic kidney Confirmed Active disease), stage II NSTEMI (non-ST Confirmed Active elevated myocardial infarction) Proteinuria Confirmed Active Results Orders for Microbiology Reports Name Date AFB Culture w/ AFB Smear, Nonrespiratory (ACID FAST CU LT,NON-RESP) 06/16/22 Anaerobic Culture (ANAEROBIC CULTURE) 06/16/22 Fungal Culture, Nonrespiratory (FUNGAL CULT,NON-RESPIR ATORY) 06/16/22 Tissue Culture w/ Gram Smear (TISSUE/BIOPSY CULT.) Urine Culture (URINE CULTURE) 06/15/22 Blood Culture 06/15/22 Blood Culture #2 06/15/22 Microbiology Reports TEST:Anaerobic Culture STATUS:Auth (Verified) BODY SITE: SOURCE:TISSUE1 COLLECTED DATE/TIME:06/16/22 12:18 PMAnaerobic Culture SPECIMEN DESCRIPTION : TISSUE SACRUM SPECIAL REQUESTS : NONE CULTURE : NO ANAEROBES ISOLATED REPORT STATUS : FINAL 06/18/2022TEST:Tissue/Biopsy Culture STATUS:Modified/Amended/Corrected BODY SITE: SOURCE:TISSUE1 COLLECTED DATE/TIME:06/16/22 12:18 PMTissue/Biopsy Culture SPECIMEN DESCRIPTION : TISSUE SACRUM SPECIAL REQUESTS : NONE GRAM STAIN : 1+ WHITE BLOOD CELLS NO ORGANISMS SEEN CULTURE : 2+ Klebsiella pneumoniae. This isolate produces extended spectrum beta-lactamase (ESBL). This isolate was identified using Maldi-TOF system These AST results were performed on the Junarcan ID and AST system 2+ ENTEROCOCCUS FAECIUM, VANCOMYCIN RESISTANT. This isolate was identified using Maldi-TOF system These AST results were performed on the Junarcan ID and AST system CULTURE RESULTS PHONED TO: DR HUNG, BY TECH 169, AT 0855, 06/19/22, RESULT FAXED TO INF CONTROL. REPORT STATUS : FINAL 06/19/2022 ORGANISM 2+ Klebsiella pneumoniae. This isolate produces extended spectrum beta-lactamase (ESBL). This isolate was identified using Maldi-TOF system These AST results were performed on the Junarcan ID and AST system METHOD MIN. INHIB. CONC. (MCG/ML) AMPICILLIN RESISTANT AMPICILLIN/SULBACTAM RESISTANT AMOXICILLIN/CLAVULAN RESISTANT CEFAZOLIN RESISTANT CEFEPIME RESISTANT CEFTRIAXONE RESISTANT CIPROFLOXACIN RESISTANT ERTAPENEM SUSCEPTIBLE GENTAMICIN SUSCEPTIBLE LEVOFLOXACIN RESISTANT MEROPENEM SUSCEPTIBLE PIPERACILLIN/TAZOBAC INTERMEDIATE TRIMETH/SULFAMETHOX RESISTANT TETRACYCLINE RESISTANT ORGANISM 2+ ENTEROCOCCUS FAECIUM, VANCOMYCIN RESISTANT. This isolate was identified using Maldi-TOF system These AST results were performed on the Microscan ID and AST system METHOD MIN. INHIB. CONC. (MCG/ML) AMPICILLIN RESISTANT LINEZOLID SUSCEPTIBLE VANCOMYCIN RESISTANT GENTAMICIN SYNERGY ACTIVE IN SYNERGY STREPTOMYCIN SYNERGY NOT ACTIVE IN SYNERGYTEST:Fungal Culture, Non-Respiratory STATUS:Unauthenticated BODY SITE: SOURCE:TISSUE1 COLLECTED DATE/TIME:06/16/22 12:18 PMFungal Culture, Non-Respiratory SPECIMEN DESCRIPTION : TISSUE SACRUM SPECIAL REQUESTS : NONE DIRECT EXAM : NO FUNGAL ELEMENTS OBSERVED CULTURE : NO FUNGI ISOLATED AFTER 7 DAYS REPORT STATUS : PRELIMINARY REPORT TEST:AFB Culture w/AFB Smear, Non-Respiratory STATUS:Unauthenticated BODY SITE: SOURCE:TISSUE1 COLLECTED DATE/TIME:06/16/22 12:18 PMAFB Culture w/AFB Smear, Non-Respiratory SPECIMEN DESCRIPTION : TISSUE SACRUM SPECIAL REQUESTS : NONE DIRECT EXAM : NO ACID FAST BACILLI SEEN ON DIRECT SMEAR, TEST PERFORMED AT [facility] No acid fast bacilli seen on concentrated smear. Per [facility] protocol, this specimen was concentrated prior to smear preparation. [facility], [address] [place] [id number]. CULTURE : SPECIMEN SENT TO [facility], [place], [place] REPORT STATUS : PRELIMINARY REPORT TEST:Urine Culture STATUS:Auth (Verified) BODY SITE: SOURCE:URINE COLLECTED DATE/TIME:06/15/22 10:30 PMUrine Culture SPECIMEN DESCRIPTION : URINE SPECIAL REQUESTS : NONE CULTURE : NO GROWTH REPORT STATUS : FINAL 06/17/2022TEST:Blood Culture STATUS:Auth (Verified) BODY SITE: SOURCE:Blood COLLECTED DATE/TIME:06/15/22 9:02 PMBlood Culture SPECIMEN DESCRIPTION : BLOOD L WRIST SPECIAL REQUESTS : NONE CULTURE : NO GROWTH 5 DAYS. REPORT STATUS : FINAL 06/20/2022TEST:Blood Culture, Second Order STATUS:Auth (Verified) BODY SITE: SOURCE:Blood COLLECTED DATE/TIME:06/15/22 8:46 PMBlood Culture, Second Order SPECIMEN DESCRIPTION : BLOOD R WRIST SPECIAL REQUESTS : NONE CULTURE : NO GROWTH 5 DAYS. REPORT STATUS : FINAL 06/20/2022adiology Reports Exam Date Time Procedure Performing Provider Status 06/16/22 3:59 AM Chest 2 Views Frontal and Lat Mayo Jade; Auth (Verified) Notes:(Chest 2 Views Frontal and Lat) Reason For Exam: FeverRESULT: Chest 2 Views Frontal and Lat Chest 2 Views Frontal and Lat Reason: Fever; Clinical Question(s): Pneumonia COMPARISON: 05/09/2022 FINDINGS: LINES AND TUBES: Single lead left subclavian pacer wire is intact. Right IJ catheter tip projects just below the superior cavoatrial junction. LUNGS AND PLEURA: Mild mostly central pulmonary vascular congestion. Slightly increased streaky densities in the right lung base. A lateral projection, there is streaky opacity projecting over the lower thoracic spine. No pleural effusion. No pneumothorax. HEART, MEDIASTINUM AND TIM: Mild prominence of the cardiac silhouette. Prior CABG. Normal mediastinal and hilar contour. BONES AND SOFT TISSUES: No acute abnormality. Median sternotomy. IMPRESSION: Lateral projection shows streaky opacity projecting over the lower thoracic spine which could represent a developing consolidation given clinical suspicion for pneumonia. On frontal view there are somestreaky opacities in the right lung base which could correspond to the opacity on lateral view or represent prominent peripheral pulmonary vessels in the setting of mild pulmonary vascular congestion. WSN: [id number] Ordering Physician: Chris Medel Dictated By: Tejinder Ferguson MD Dictated Date/Time: 06/16/22 8:10 am Reviewed By: Tejinder Ferguson MD Signed By: Tejinder Ferguson MD Signed Date/Time: 06/16/22 8:10 am Transcribed By: JEFFREY Transcribed Date/Time: 06/16/22 8:03 am Vital Signs Most recent to oldest 1 2 3 [Reference Range]: Height 195 cm 195 cm 195 cm (06/24/22 6:22 AM) (06/21/22 11:51 AM) (06/21/22 6: 45 AM) Weight 97.1 kg 99.0 kg 102.1 kg (06/24/22 3:36 AM) (06/23/22 5:33 AM) (06/22/22 5:4 7 AM) Oxygen Saturation [94-100 %] 100 % 100 % 100 % (06/24/22 4:00 PM) (06/24/22 11:00 AM) (06/24/22 6: 22 AM) Pulse Rate [55-90 bpm] 98 bpm 95 bpm 95 bpm *H* *H* *H* (06/24/22 4:00 PM) (06/24/22 12:31 PM) (06/24/22 11 :00 AM) Body Mass Index [18.5-24.99 25.09 kg/m2 25.09 kg/m2 kg/m2] *H* *H* (06/21/22 11:51 AM) (06/16/22 6:06 PM) Blood Pressure [90-138/55-84 112/55 mm Hg 108/55 mm Hg 108 /55 mm Hg mm Hg] (06/24/22 4:00 PM) (06/24/22 12:31 PM) (06/24/22 11 :00 AM) Respiratory Rate [16-30 18 br/min 16 br/min 20 br/mi n br/min] (06/24/22 12:31 PM) (06/24/22 6:22 AM) (06/24/22 2: 00 AM) Temperature [96.8-100.4 98.2 DegF 97.7 DegF 98.8 Deg F DegF] (06/24/22 4:00 PM) (06/24/22 11:00 AM) (06/24/22 6: 22 AM) Liters per Minute 6 L/min 3 L/min 3 L/min (06/21/22 2:45 PM) (06/18/22 2:00 AM) (06/18/22 1 :00 AM) Mode of Delivery (Oxygen) Room air Room air Room a ir (06/24/22 4:00 PM) (06/24/22 11:00 AM) (06/24/22 6: 22 AM) Blood pressure sites Arm, right Arm, right Arm, right (06/24/22 4:00 PM) (06/24/22 11:00 AM) (06/24/22 6: 22 AM) Temperature Route Oral Oral Oral (06/24/22 4:00 PM) (06/24/22 11:00 AM) (06/24/22 6: 22 AM) Dry Weight 99.0 kg 102.1 kg 95.4 kg (06/23/22 5:33 AM) (06/22/22 5:47 AM) (06/16/22 6: 06 PM) Weight Obtained Via Bed scale Bed scale Bed scale (06/24/22 3:36 AM) (06/23/22 5:33 AM) (06/22/22 5:4 7 AM) Dry Weight Obtained Via Bed scale Bed scale Bed scal e (06/23/22 5:33 AM) (06/22/22 5:47 AM) (06/16/22 6: 06 PM) Note BHSPowerscribe , CIS S: TRANSCRIBE Tejinder Ferguson MD: VERIFY Event Display: Result: Authored Date: [id number] Chest 2 Views Frontal and Lat Reason: Fever; Clinical Question(s): Pneumonia COMPARISON: 05/09/2022 FINDINGS: LINES AND TUBES: Single lead left subclavian pacer wire is intact. Right IJ catheter tip projects just below the superior cavoatrial junction. LUNGS AND PLEURA: Mild mostly central pulmonary vascular congestion. Slightly increased streaky densities in the right lung base. A lateral projection, there is streaky opacity projecting over the lower thoracic spine. No pleural effusion. No pneumothorax. HEART, MEDIASTINUM AND TIM: Mild prominence of the cardiac silhouette. Prior CABG. Normal mediastinal and hilar contour. BONES AND SOFT TISSUES: No acute abnormality. Median sternotomy. IMPRESSION: Lateral projection shows streaky opacity projecting over the lower thoracic spine which could represent a developing consolidation given clinical suspicion for pneumonia. On frontal view there are somestreaky opacities in the right lung base which could correspond to the opacity on lateral view or represent prominent peripheral pulmonary vessels in the setting of mild pulmonary vascular congestion. WSN: [id number] Ordering Physician: Chris Medel Dictated By: Tejinder Ferguson MD Dictated Date/Time: 06/16/22 8:10 am Reviewed By: Tejinder Ferguson MD Signed By: Tejinder Ferguson MD Signed Date/Time: 06/16/22 8:10 am Transcribed By: JEFFREY Transcribed Date/Time: 06/16/22 8:03 am Patient Care team information PersonnelName: Dot PITTMAN, Lamont Nuñez Address: Address: [address] [place] [address] [address] [place] [address]-
--- OUTSIDE RECORDS SUMMARY | 2022-07-11 06:20 | XMS_ITS | Encounter Summary ---
:1955 Author Care Team Providers Name Role Phone Lamont Chris MD Primary Care Provider [phone] [facility] 1st Floor OTHER [phone] Reason for Visit Acute Rounding Visit Assessment and Plan 1. Low blood pressure midodrine 5 mg tid prn for sbp less 90 2. Pressure injury of sacral region of back Continue local care as ordered. Continue oxycodone 5 mg q 6 hrs prn for pain, taper to d/c as able, was never on this before. Wound care consult. Monitor for healing. 3. Chronic kidney disease stage 4 monitor labs Discussion Note: None recorded.Patient educational handouts: No [...] in 196.4 lbs 22.7 kg/m2 132/77 mm[Hg] Results Lab Results None recorded. Allergies Code Code System Name Reaction Severity Onset [id number] RxNorm Bactrim ? ? ? 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 What was the date of your most [...] N recreational drugs? Where do you live? [facility] Notes: home alone, has flight of stairs but now matamoros s a stair lift What is your relationship status? Notes : Was in 2001, then had new relatio nship and broke up, so not act ually . Functional Status Unknown. Past Encounters 04/28/2022 Low Blood Pressure; Pressure Injury of S acral Region of Back; Chronic Kidney Disease Stage 4 Marielos Alvarez HAIR WORKER: [address] [place] [address], Ph. 04/26/2022 Type 2 Diabetes Mellitus; Chronic Kidney Disease Stage 4; Pressure Injury of Sacral Region of Back Marielos Alvarez HAIR WORKER: [address] [place] [address], Ph. 04/21/2022 Cardiomyopathy; Congestive Heart Failure ; End-stage Renal Disease; Asthenia; Hyponatremia; Type 2 Diabetes Mellitus; Pressure Injury of Sacral Region of Back; Neuropathy; Atrial Fibrillation; Hyperlipid emia; Anemia; Insomnia; Coronary Arterio sclerosis Autumn Kerr MD: [address] [place] [address], Ph. 04/20/2022 Neuropathy; Chronic Kidney Disease Stage 4; Asthenia Marielos Alvarez HAIR WORKER: [address] [place] [address], Ph. 04/15/2022 End-stage Renal Disease; Atrial Fibrilla tion; Cardiomyopathy; Hyperlipidemia; Neuropathy; Type 2 Diabetes Mellitus; Chronic Kidney Disease Stage 4; Asthenia; Anemia Marielos Alvarez HAIR WORKER: [address] [place] [address], Ph. History of Present Illness Note: <div>seen today for acute rounding visit, CAOx3 sitting up in wheelchair, 2+ edema, pvd discoloration, lungs clear, complains of feeling dizzy and weak, bp 114, ordered a midodrine now and then tid prn for sbp less than 90, he felt better and went to dialysis</div>Review of Systems: ROS as noted in the HPI Review of Systems None recorded. Physical Exam ? General Adult Exam Reported By: Patient Constitutional: General Appearance: well-dev eloped. Level of Distress: NAD. Ambulation: ambulation with walker, in wheelchair; min assist with ambulation, at baseline used devices prn Psychiatric: Insight: good judgement. Men ryland Status: [...] Abdomen: Bowel Sounds: normal, soft, non-distended, no tenderness Musculoskeletal:: Extremities: no cyanosis, ed rashid; 2+ BLE, DAYAN stockings Neurologic: Cranial Nerves: grossly inta ct Skin: Inspection and palpation: no rash, ulcer Notes: <div>03/22 5wbc 8.7 h/h 8.2/25 .1 plt 197 na 127 k 4.1 bun 47 creat 3.6 </div><div>04/18-WBC-7.2, H/H-8.0/24.6, plts-249, BUN/Cr-59/4.62, GFR-13, Na+1 25, K+4.6, glu-540</div><div>04/26 wbc 11.2 h/h 8.5/25.8 plt 269 na 124 k 4.1 bun 53 creat 4.08 gfr 15 HD aware</div>
--- OUTSIDE RECORDS SUMMARY | 2022-07-11 06:20 | XMS_ITS | Encounter Summary ---
:1955 Author Care Team Providers Name Role Phone Lamont Chris MD Primary Care Provider [phone] [address] OTHER [phone] Reason for Visit Initial Intake Assessment and Plan 1. Pressure injury of sacral region of back Continue local care as ordered. cefazolin 2 mg iv TTS after dialysis to 06/21 vancomycin 750 mg iv TTS after dialysis to 06/21 fluconazole 400 mg TTS after dialysis to 06/21 probiotic bid oxycodone 5 mg q 6 hrs prn for pain, ta per to d/c as able, was never on this before Wound care consult. Monitor for healing. 2. Sepsis monitor 3. End-stage renal disease HD 3x week monitor permacath 4. Atrial fibrillation metoprolol er 25 mg daily eliquis 5 mg bid asa 81 mg daily 5. Cardiomyopathy metoprolol er 25 mg daily eliquis 5 mg bid asa 81 mg daily 6. Hyperlipidemia atorvastatin 80 mg daily ezetimibe 10 mg daily 7. Neuropathy oxycodone 5 mg q6hr prn primidone 50 mg hs questron 4 gm bid 8. Type 2 diabetes mellitus glargine 15 units daily lispro AC, sliding scale 9. Chronic kidney disease stage 4 monitor labs 10. Asthenia PT OT eval and treat fall precautions frequent safety checks 11. Anemia monitor labs vit c 1000 daily mvi-nephrocap epoetin 10,000 TTS 12. Low blood pressure midodrine 5 mg tid prn for sbp less 90 13. Coronary arteriosclerosis ntg prn Discussion Note: None recorded.Patient educational handouts: No [...] Pressure 6 ft 6 in 121/76 mm[Hg] Results Lab Results None recorded. Allergies Code Code System Name Reaction Severity Onset 738367 RxNorm Bactrim ? ? ? 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 Where do you live? [facility] Notes: home alone, has flight of stairs but now matamoros s a stair lift What is your relationship status? Notes : Was in 2001, then had new relatio nship and broke up, so not act ually . Functional Status Unknown. Past Encounters 06/03/2022 Pressure Injury of Sacral Region of Back ; Sepsis; End-stage Renal Disease; Atrial Fibrillation; Cardiomyopathy; Hyperlipidemia; Neuropathy; Type 2 Diabetes Mellitus; Chronic Kidney Disease Stage 4; Asth enia; Anemia; Low Blood Pressure; Hooks ry Arteriosclerosis Marielos Alvarez, GLAZE MIXER: [address] [facility] , [place] [address], Ph. 05/09/2022 Low Blood Pressure; Sepsis Marielos Alvarez GLAZE MIXER: [address] [facility] , [place] [address], Ph. 05/04/2022 Chronic Kidney Disease Stage 4; Neuropat hy; Asthenia Marielos Alvarez GLAZE MIXER: [address] [place] [address], Ph. History of Present Illness Note: <div>seen today for initial intake-</div><div>67 yom originally admitted to for rehab after preseniting to the hospital 04/10, with volume overload and initiated on hemodialysis via catheter during this hospital stay- with fevers unclear etiology, possibly pneumonia, concern for line infection but multiple blood cultures negative. Dr. Saab, - Permacath was placed by Dr. Batista of on 04/05, - will need to confirm out HD arranged in [place]? Nasal MRSA screen negative, sputum (04/11) with mod epis/mod WBC/few GPC/rare GNR, chest CT showing posterior left lower lobe airspace disease/small left pleural effusion, and bilateral lowe extremity duplex showing no DVT, blood cultures from permacath negative.</div><div>05/09 sent to hospital for sepsis, elevated wbc and altered mental status, found in the hospital to have a necrotic wound needing debridement and abx therapy, 05/10, 05/23 and 06/01 debridements were done, sacral wound grew ecoli, enterococcus avium, tx with vanco and cefazolin and is to be on this after dialysis to 06/21.</div><div>
</div><div>CAOx3 in bed, has allevyn dressings on his heels but he is not sure if he haswounds there, reported this to nursing, michele luna ordered, lungs clear no edema, iv abx will be given by dialysis.</div><div>
</div>Review of Systems: ROS as noted in the [...] k 4.1 bun 34 creat 2.81 gfr 23</div>
--- OUTSIDE RECORDS SUMMARY | 2022-07-11 06:20 | XMS_ITS | Encounter Summary ---
:1955 Author Care Team Providers Name Role Phone Lamont Chris MD Primary Care Provider [phone] [address] Floor OTHER [phone] Reason for Visit Admitting H&P Assessment and Plan 1. Cardiomyopathy Severe at baseline with EF 20-25%. Has AICD in place Continue metoprolol ER 25 mg qd, torsemi de 40 mg qd, isosorbide ER 30 mg qd and ASA 81 mg qd. Monitor resp. status, fluid status, wts and labs. F/U with cardio as planned. 2. Congestive heart failure As above. 3. End-stage renal disease Continue HD 3x/wk Continue renal diet. Not yet on any meds for Ca+/PO4 metaboli sm. Continue Ca+/vit D 600 mg/1000 IU qd. Continue to avoid nephrotoxic meds as ab le. Monitor labs. Renal f/u as planned 4. Asthenia Very deconditioned. Needs PT/OT for strengthening, balance, gait training, safety and function. Continue fall precautions. Monitor for safety. 5. Hyponatremia Na+ remains low. Not quite as low as it appears if corrected for very high sugars he has been running. Being managed at dialysis and with fluid restriction. Continue 1500 ml/d fluid restriction. Monitor labs. 6. Type 2 diabetes mellitus Severely out of control since here. At home was on 22U of Lantus, lowered inpt due to poor po intake and hypoglycemia. Will increase Lantus from 10U to 15U, an ticipate need to eventually go back up to 22U Continue lispro 3 units AC and SSI. Monitor fingersticks QID. 7. Pressure injury of sacral region of back Continue local care as ordered. Continue oxycodone 5 mg q 6 hrs prn for pain, taper to d/c as able, was never on this before. Wound care consult. Monitor for healing. 8. Neuropathy Continue primidone 50 mg qhs Monitor sxs. 9. Atrial fibrillation Rate in good control on meds as above. Continue Eliquis 5 mg BID Monitor HR and bleeding risk. 10. Hyperlipidemia Continue atorvastatin 80 mg qd, ezetimi be 10 mg qd and questran 4 gm BID. Monitor labs as outpt. 11. Anemia Multifactorial. Was getting procrit as outpt. Continue procrit per renal. Monitor labs. 12. Insomnia Continue melatonin 3 mg qhs. Monitor sleep patterns. 13. Coronary arteriosclerosis S/P MIs x4, last one 2019. Continue meds as above and NTG sl prn. Monitor sxs. F/U with cardio as planned. Discussion Note: None recorded.Patient educational handouts: No [...] in 195.5 lbs 22.6 kg/m2 132/74 mm[Hg] Results Lab Results None recorded. Allergies Code Code System Name Reaction Severity Onset 078608 RxNorm Bactrim ? ? ? Problems Name [...] you have a medical power of Y lumber checker? What was the date of your most [...] alcohol use? Functional Status Unknown. Past Encounters 04/21/2022 Cardiomyopathy; Congestive Heart Failure ; End-stage Renal Disease; Asthenia; Hyponatremia; Type 2 Diabetes Mellitus; Pressure Injury of Sacral Region of Back; Neuropathy; Atrial Fibrillation; Hyperlipid emia; Anemia; Insomnia; Coronary Arterio sclerosis Autumn Kerr MD: [address] [facility], [place] [address], Ph. 04/20/2022 Neuropathy; Chronic Kidney Disease Stage 4; Asthenia Marielos Alvarez, TECHNOLOGY TRAINER: [address] , [place], [place] [address], Ph. 04/15/2022 End-stage Renal Disease; Atrial Fibrilla tion; Cardiomyopathy; Hyperlipidemia; Neuropathy; Type 2 Diabetes Mellitus; Chronic Kidney Disease Stage 4; Asthenia; Anemia Marielos Alvarez, TECHNOLOGY TRAINER: [address] , [place], [place] [address], Ph. History of Present Illness Note: <div>This is a 67 yo man with ESRD on HD, who is here for rehab after an acute hospitalization for CHF exacerbation eventually needing initiation of HD to manage fluid balance.</div><div>He presented to the [facility] ED on 03/27 because of massively increased peripheral edema with DINERO and a21# wt. gain over 2 weeks. He also noticed decreased urinary output lately, despite continuing his usual diuretic. On exam he had rales, but O2 sat was ok on RA. Labs showed BUN/Cr- 119/4.4, Na+123 (corrected 129), glu-330, WBC-7.46, H/H-9.2/96.5, ProBNP-34,284, and troponin was elevated, but presumed due to renal failure. CXR was non-acute with ICD present and in place. EKG was non-acute. He got IV lasix with no urine output in 3 hrs. He was put on a lasix drip and renal was consulted. Recommended addition of metolazone and uptitration of hydralazine prn BPs. Consideration given to needing to startdialysis if not adequately diuresing. He did diurese some overnight, but not as much as would be expected. </div><div>Echo done on 03/28 showed EF of 25-30% (similar to 11/2021), severe globalhypokinesis, grade 3 diastolic dysfunction, the right ventricle was severely dilated and has impaired systolic function. There was moderate to severe mitral regurgitation. A pacer/ICD wire crosses the tricuspid valve with secondary tricuspid regurgitation, which appeared to be moderate to severe. Estimated pulmonary pressures were 55 to 65 mmHg, consistent with moderate to severe pulmonary hypertension. Cardio consult agreed that if he did not diurese adequately he would need dialysis. He also mentioned use of a CardioMEMS device if dialysis was not adequate to control his CHF. Pt expressed interest in arranging PD as an outpt, but understood he may need HD acutely if he was not diuresing. He did diurese adequately and was set up for outpt placement of permacath on 04/04. D/C was planned for 04/02,but then he developed diarrhea and N/V and spiked a temp. W/U was neg, including WBC, U/A, CXR and eventually neg blood cxs. No abx started. Transitioned to po diuretics. Fever resolved after 04/02. Remained weak and was too weak to be d/c. He had poor po intake and developed hypoglycemia, lantus was decreased. </div><div>On 04/05 permacath was placed and dialysis started. On 04/07 he spikedanother temp. W/U was again neg. CT of chest and abd/pelvis were done and chest CT showed Moderate size airspace disease of the left lower lobe, concerning for pneumonia. Procalcitonin 1.6. ID consulted and started on Zosyn for ? of asp. MNA. MRSA screen was neg, as was entire resppanel. Repeat blood cxs were neg. Abd CT showed some ascites and it was attempted to tap this for cx, but no pockets big enough to tap. Entire resp/ panel neg. Fevers resolved.</div><div>Hedeveloped a sacral wound which caused him sig. pain and oxycodone was started. Wound care was done per wound care nurse. As pt began eating better his sugars increased and lantus and mealtime lispro were gradually increased, but remained on much lower dose than JOY LOADER. He was given a one time dose of ertapenem prior to transfer and then transitioned to Augmentin to complete course. He was also started on a fluid restriction for hyponatremia. Transferred here on 04/14.</div><div>He tells me he is frustrated that he got so weak in the hospital because they never got him up walking. He does feel like he's improving a little sinc here. Sacral wound is still really painful, but he hasn't asked for oxycodone at all, he doesn't like to take meds. He got it once in hospital and it helped him have a good night's sleep. </div><div>His PMH includes ESRD on HD, CHF due to ischemic cardiomyopathy (EF 20-25%), HTN, AODM with neuropathy, anemia, PAF on Eliquis with AICD/pacer in place (2013), discoid lupus, CAD-s/p NSTEMI 09/2018 (3 previous MIs), HLD, OA (jalyn. wrist) and vasculogenic ED. </div> Review of Systems ? Notes: <div>All others reviewed and negative unless otherwise stated in the HPI.</div> Physical Exam ? General Adult Exam Reported By: Patient Constitutional: General Appearance: well-nou rished. Level of Distress: NAD. Ambulation: ambulation with walker, in wheelchair; min assist with ambulation, at baseline used devices prn, but mostly not Psychiatric: Insight: good judgement. Men ryland Status: [...] Musculoskeletal:: Extremities: no cyanosis, ed rashid; 2+ BLE Neurologic: Cranial Nerves: grossly inta ct Skin: Inspection and palpation: no rash, ulcer Notes: <div>03/22 5wbc 8.7 h/h 8.2/25 .1 plt 197 na 127 k 4.1 bun 47 creat 3.6 </div><div>04/18-WBC-7.2, H/H-8.0/24.6, plts-249, BUN/Cr-59/4.62, GFR-13, Na+1 25, K+4.6, glu-540</div>
--- OUTSIDE RECORDS SUMMARY | 2022-07-11 06:20 | XMS_ITS | Encounter Summary ---
:1955 Author Care Team Providers Name Role Phone Lamont Chris MD Primary Care Provider [phone] [facility] 1st Floor OTHER [phone] Reason for Visit Acute Rounding Visit Assessment and Plan 1. Pressure injury of sacral region of back Continue local care as ordered. oxycodone 5 mg q 6 hrs prn for pain, ta per to d/c as able, was never on this before. Wound care consult. Monitor for healing. 2. End-stage renal disease HD 3x week monitor permacath 3. Low blood pressure midodrine 5 mg tid prn for sbp less 90 Discussion Note: None recorded.Patient educational handouts: No [...] Pressure 6 ft 6 in 112/71 mm[Hg] Results Lab Results None recorded. Allergies Code Code System Name Reaction Severity Onset 098388 RxNorm Bactrim ? ? ? Problems Name [...] EXTRACTION CATARACT EXTRACTION, BILATERAL Bilateral 2017 Slick Daniella CORONARY ARTERY BYPASS GRAFT X2 vessels HERNIA [...] you have a medical power of Y consumer attorney? What was the date of your most 04/21/2022 recent tobacco screening? Do you have an advanced Y directive? Do you use any illicit or N recreational drugs? Where do you live? [facility] Notes: home alone, has flight of [...] alcohol use? Functional Status Unknown. Past Encounters 05/02/2022 Pressure Injury of Sacral Region of Back ; End-stage Renal Disease; Low Blood Pressure Marielos Alvarez ROAD ROLLER OPERATOR: [address] [facility] [place] [address], Ph. 04/28/2022 Low Blood Pressure; Pressure Injury of S acral Region of Back; Chronic Kidney Disease Stage [address] ROLLER OPERATOR: [address] [place] [address], Ph. 04/26/2022 Type 2 Diabetes Mellitus; Chronic Kidney Disease Stage 4; Pressure Injury of Sacral Region of Back Marielos Alvarez ROAD ROLLER OPERATOR: [address] [place] [address], Ph. 04/21/2022 Cardiomyopathy; Congestive Heart Failure ; End-stage Renal Disease; Asthenia; Hyponatremia; Type 2 Diabetes Mellitus; Pressure Injury of Sacral Region of Back; Neuropathy; Atrial Fibrillation; Hyperlipid emia; Anemia; Insomnia; Coronary Arterio sclerosis Autumn Kerr MD: [address] [place] [address], Ph. 04/20/2022 Neuropathy; Chronic Kidney Disease Stage 4; Asthenia Marielos Alvarez ROAD ROLLER OPERATOR: [address] [place] [address], Ph. 04/15/2022 End-stage Renal Disease; Atrial Fibrilla tion; Cardiomyopathy; Hyperlipidemia; Neuropathy; Type 2 Diabetes Mellitus; Chronic Kidney Disease Stage 4; Asthenia; Anemia Marielos Alvarez ROAD ROLLER OPERATOR: [address] [place] [address], Ph. History of Present Illness Note: <div>seen today for acute rounding visit, CAOx3 sitting up in wheelchair, lungs clear, 2+ edema BLE, supposed to be wearing teds, or tomi wraps, nursing aware, pt reported he had a huge bm yesterday</div>Review of Systems: ROS as noted in the [...] k 3.2 bun 26 creat 2.99 gfr 21</div>
--- OUTSIDE RECORDS SUMMARY | 2022-07-11 06:20 | XMS_ITS | Encounter Summary ---
:1955 Author Care Team Providers Name Role Phone Lamont Chris MD Primary Care Provider [phone] [address] Floor OTHER [phone] Reason for Visit Acute Rounding Visit Assessment [...] Wound care consult. Monitor for healing. 2. Coronary arteriosclerosis ntg prn Discussion Note: None [...] Pressure 6 ft 6 in 100/76 mm[Hg] Results Lab Results None recorded. Allergies Code Code System Name Reaction Severity Onset 015670 RxNorm Bactrim ? ? ? Problems Name [...] you have a medical power of Y staff attorney? What is your relationship status? Notes : [...] recreational drugs? Where do you live? [facility] Notes: home alone, has flight of stairs but now matamoros s a stair lift How many times per week do you 5-7 times per week consume alcohol? Functional Status Unknown. Past Encounters 06/06/2022 Pressure Injury of Sacral Region of Back ; Coronary Arteriosclerosis Marielos Alvarez, CARBONATOR: [address] , [place] [address], Ph. 06/03/2022 Pressure Injury of Sacral Region of Back ; Sepsis; End-stage Renal Disease; Atrial Fibrillation; Cardiomyopathy; Hyperlipidemia; Neuropathy; Type 2 Diabetes Mellitus; Chronic Kidney Disease Stage 4; Asth enia; Anemia; Low Blood Pressure; Hooks ry Arteriosclerosis Marielos Taylor Antonio, CARBONATOR: [address] , [place] [address], Ph. 05/09/2022 Low Blood Pressure; Sepsis Marielos Alvarez, CARBONATOR: [address] , [place] [address], Ph. History of Present Illness Note: <div>seen today for acute rounding visit, CAOx3 complaining of pain at the coccyx wound area,convention services manager noitified on the weekend and added a 10 mg oxycodone dose, reminded pt he needs to turn and reposition every 2 hours, staff also reminded of this, na 126 dialysis notified </div>Review of Systems: ROS as noted in [...]
--- OUTSIDE RECORDS SUMMARY | 2022-07-11 06:20 | XMS_ITS | Encounter Summary ---
:1955 Author Care Team Providers Name Role Phone Lamont Chris MD Primary Care Provider [phone] [facility] 1st Floor OTHER [phone] Reason for Visit Acute Rounding Visit Assessment and Plan 1. Low blood pressure midodrine 5 mg tid prn for sbp less 90 2. Sepsis wbc 23.4 with hypotension sent to ED Discussion Note: None recorded.Patient educational handouts: No [...] Pressure 6 ft 6 in 80/48 mm[Hg] Results Lab Results None recorded. Allergies Code Code System Name Reaction Severity Onset 125102 RxNorm Bactrim ? ? ? Problems Name [...] you have a medical power of Y litigation attorney associate? What was the date of your most [...] N recreational drugs? Where do you live? [facility] Notes: home alone, has flight of stairs but now matamoros s a stair lift What is your relationship status? Notes : Was in 2001, then had new relatio nship and broke up, so not act ually . Functional Status Unknown. Past Encounters 05/09/2022 Low Blood Pressure; Sepsis Marielos Alvarez BOTTLE PACKER: [address] [facility] , [place] [address], Ph. 05/04/2022 Chronic Kidney Disease Stage 4; Neuropat hy; Asthenia Marielos A Grippin, BOTTLE PACKER: [address] [facility] , [place] [address], Ph. 05/02/2022 Pressure Injury of Sacral Region of Back ; End-stage Renal Disease; Low Blood Pressure Marielos Alvarez, BOTTLE PACKER: [address] [facility] , [place] [address], Ph. 04/28/2022 Low Blood Pressure; Pressure Injury of S acral Region of Back; Chronic Kidney Disease Stage 4 Marielos Alvarez, BOTTLE PACKER: [address] [place] [address], Ph. 04/26/2022 Type 2 Diabetes Mellitus; Chronic Kidney Disease Stage 4; Pressure Injury of Sacral Region of Back Marielos Alvarez, BOTTLE PACKER: [address] [place] [address], Ph. 04/21/2022 Cardiomyopathy; Congestive Heart Failure ; End-stage Renal Disease; Asthenia; Hyponatremia; Type 2 Diabetes Mellitus; Pressure Injury of Sacral Region of Back; Neuropathy; Atrial Fibrillation; Hyperlipid emia; Anemia; Insomnia; Coronary Arterio sclerosis Autumn Kerr MD: [address] [place] [address], Ph. 04/20/2022 Neuropathy; Chronic Kidney Disease Stage 4; Asthenia Marielso Alvarez, BOTTLE PACKER: [address] [place] [address], Ph. 04/15/2022 End-stage Renal Disease; Atrial Fibrilla tion; Cardiomyopathy; Hyperlipidemia; Neuropathy; Type 2 Diabetes Mellitus; Chronic Kidney Disease Stage 4; Asthenia; Anemia Marielos Alvarez, BOTTLE PACKER: [address] [place] [address], Ph. History of Present Illness Note: <div>seen today for acute rounding visit, CAOx3 sitting up in bed, sleepy to lethargic episodes, poc was low at 28 but ate some food and OJ and poc increased over 108, sbp 74 and 80, poor response to midodrine, he continued to be intermittent lethargy, convinced him to go to the hospital for wbc 23.4 with the altered poc and mental status, nursing also reported the sacral wound appeared necrotic</div>Review of Systems: ROS as noted in the [...] 3.2 bun 26 creat 2.99 gfr 21</div><d iv>9/19 wbc 23.4 h/h 9.0/27.7 plt 256 na 130 k 3.0 bun 30 creat 3. 36 gfr 18</div>
--- OUTSIDE RECORDS SUMMARY | 2022-07-11 06:20 | XMS_ITS | Encounter Summary ---
:1955 Author Care Team Providers Name Role Phone Lamont Chris MD Primary Care Provider [phone] [facility] 1st Floor OTHER [phone] Reason for Visit Acute Rounding Visit Assessment and Plan 1. Chronic kidney disease stage 4 monitor labs avoid nephrotoxic meds 2. Neuropathy oxycodone 5 mg q6hr prn primidone 50 mg hs questron 4 gm bid 3. Asthenia PT OT eval and treat [...] in 197.7 lbs 22.8 kg/m2 118/76 mm[Hg] Results Lab Results None recorded. Allergies Code Code System Name Reaction Severity Onset 818406 RxNorm Bactrim ? ? ? Problems Name [...] have a medical power of Y attorney at law? What was the date of your most 04/21/2022 recent tobacco screening? Legal Guardian? N Do you have an out of hospital N DNR? Do you have an advanced Y directive? Do you or have you ever used any N other forms of tobacco or nicotine? Have you ever been counseled for N unhealthy alcohol use? Do you use any illicit or N recreational drugs? Where do you live? [facility] Notes: home alone, has flight of stairs but now matamoros s a stair lift What is your relationship status? Notes : Was in 2001, then had new relatio nship and broke up, so not act ually . Functional Status Unknown. Past Encounters 05/04/2022 Chronic Kidney Disease Stage 4; Neuropat hy; Asthenia Marielos Alvarez WEED SPRAYER: [address] [place] [address], Ph. 05/02/2022 Pressure Injury of Sacral Region of Back ; End-stage Renal Disease; Low Blood Pressure Marielos Alvarez WEED SPRAYER: [address] [place] [address], Ph. 04/28/2022 Low Blood Pressure; Pressure Injury of S acral Region of Back; Chronic Kidney Disease Stage 4 Marielos Alvarez WEED SPRAYER: [address] [place] [address], Ph. 04/26/2022 Type 2 Diabetes Mellitus; Chronic Kidney Disease Stage 4; Pressure Injury of Sacral Region of Back Marielos Alvarez WEED SPRAYER: [address] [place] [address], Ph. 04/21/2022 Cardiomyopathy; Congestive Heart Failure ; End-stage Renal Disease; Asthenia; Hyponatremia; Type 2 Diabetes Mellitus; Pressure Injury of Sacral Region of Back; Neuropathy; Atrial Fibrillation; Hyperlipid emia; Anemia; Insomnia; Coronary Arterio sclerosis Autumn Kerr MD: [address] [place] [address], Ph. 04/20/2022 Neuropathy; Chronic Kidney Disease Stage 4; Asthenia Marielos Alvarez WEED SPRAYER: [address] [place] [address], Ph. 04/15/2022 End-stage Renal Disease; Atrial Fibrilla tion; Cardiomyopathy; Hyperlipidemia; Neuropathy; Type 2 Diabetes Mellitus; Chronic Kidney Disease Stage 4; Asthenia; Anemia Marielos Alvarez WEED SPRAYER: [address] [place] [address], Ph. History of Present Illness Note: <div>seen today for acute rounding visit, CAOx3 up in wheelchair, able to transfer to commode, lungs clear, tolerating PT , eating and drinking fairly well, tolerating HD</div>Review of Systems: ROS as noted in the [...]
--- OUTSIDE RECORDS SUMMARY | 2022-07-11 06:20 | XMS_ITS | Encounter Summary ---
:1955 Author Care Team Providers Name Role Phone Lamont Chris MD Primary Care Provider [phone] [facility] 1st Floor OTHER [phone] Reason for Visit Acute Rounding Visit Assessment and Plan 1. Type 2 diabetes mellitus Severely out of control since here. At home was on 22U of Lantus, lowered inpt due to poor po intake and hypoglycemia. Will increase Lantus from 10U to 15U, an ticipate need to eventually go back up to 22U Continue lispro 3 units AC and SSI. Monitor fingersticks QID. 2. Chronic kidney disease stage 4 monitor labs 3. Pressure injury of sacral region of back Continue local care as ordered. Continue oxycodone 5 mg q 6 hrs prn for pain, taper to d/c as able, was never on this before. Wound care consult. Monitor for healing. Discussion Note: None recorded.Patient educational handouts: No [...] Pressure 6 ft 6 in 132/76 mm[Hg] Results Lab Results None recorded. Allergies Code Code System Name Reaction Severity Onset 158273 RxNorm Bactrim ? ? ? Problems Name [...] N recreational drugs? Where do you live? [facility] Notes: home alone, has flight of stairs but now matamoros s a stair lift What is your relationship status? Notes : Was in 2001, then had new relatio nship and broke up, so not act ually . Functional Status Unknown. Past Encounters 04/26/2022 Type 2 Diabetes Mellitus; Chronic Kidney Disease Stage 4; Pressure Injury of Sacral Region of Back Marielos Alvarez, RECEIVABLE CLERK: [address] [facility] , [place] [address], Ph. 04/21/2022 Cardiomyopathy; Congestive Heart Failure ; End-stage Renal Disease; Asthenia; Hyponatremia; Type 2 Diabetes Mellitus; Pressure Injury of Sacral Region of Back; Neuropathy; Atrial Fibrillation; Hyperlipid emia; Anemia; Insomnia; Coronary Arterio sclerosis Autumn Kerr MD: [address] [facility], [place] [address], Ph. 04/20/2022 Neuropathy; Chronic Kidney Disease Stage 4; Asthenia Marielos Alvarez RECEIVABLE CLERK: [address] [facility] , [place] [address], Ph. 04/15/2022 End-stage Renal Disease; Atrial Fibrilla tion; Cardiomyopathy; Hyperlipidemia; Neuropathy; Type 2 Diabetes Mellitus; Chronic Kidney Disease Stage 4; Asthenia; Anemia Marielos Alvarez RECEIVABLE CLERK: [address] [facility] , [place] [address], Ph. History of Present Illness Note: <div>seen today for acute rounding visit, cAOx3 sitting up in [facility], good po intake, getting ready for HD, glucose continues to be elevated and non diabetic snacks found in room, will continue to monitor</div>Review of Systems: ROS as noted in the [...]
--- OUTSIDE RECORDS SUMMARY | 2022-07-11 06:20 | XMS_ITS ---
:1955 Author Care Team Providers Name Role Phone ENRIQUE GRANADOS MD Primary Care Provider [phone] Allergies Code Code System Name Reaction Severity Status Onset NKDA ? Medications Name Status Start Date Stop Date ? ? atorvastatin Active ? Not available atorvastatin 80 mg tablet Active ? Not av ailable TAKE 1 TABLET BY MOUTH EVERY DAY Basaglar KwikPen U-100 Insulin 100 unit/mL (3 mL) subcutaneous A ctive ? Not available INJECT 32 UNITS ONCE DAILY AT BEDTIME SUBCUTANEOUSLY 90 BD Ultra-Fine Short Pen Needle 31 gauge x 5/16 Active ? Not available USE 1 NEEDLE TO INJECT INSULIN 4 TIMES A DAY cephalexin 750 mg capsule Active ? Not av ailable Entresto 24 mg-26 mg tablet Active ? Not available TAKE 1 TABLET BY MOUTH TWICE A DAY Enzadyne Completed ? 04/08/2021 ezetimibe 10 mg tablet Active ? Not avail able TAKE 1 TABLET BY MOUTH EVERY DAY hydralazine Active ? Not available hydralazine 10 mg tablet Active ? Not lee ilable TAKE 1 TABLET BY MOUTH TWICE A DAY DIRECTED hydralazine 25 mg tablet Active ? Not lee ilable TAKE 1 TABLET BY MOUTH TWICE A DAY ipratropium bromide 21 mcg (0.03 %) nasal spray Active ? Not available SPRAY 2 SPRAYS INTO EACH NOSTRIL 2 TIMES DAILY isosorbide mononitrate ER 30 mg tablet,extended release 24 hr Ac tive ? Not available TAKE 1 TABLET BY MOUTH EVERY DAY metoprolol succinate Active ? Not availab le metoprolol succinate ER 25 mg tablet,extended release 24 hr Acti ve ? Not available TAKE 1 TABLET BY MOUTH TWICE A DAY nitroglycerin 0.4 mg sublingual tablet Active ? Not available PLACE 1 TABLET UNDER TONGUE EVERY 5 MIN S, UP TO 3 DOSES NEEDED FOR CHEST PAIN Novolog Flexpen U-100 Insulin aspart 100 unit/mL (3 mL) subcutan eous Active ? Not available INJECT 4 8 UNITS SUBCUTANEOUSLY 3 TIMES A DAY BEFORE MEALS torsemide 20 mg tablet Active ? Not avail able TAKE 3 TABLETS BY MOUTH TWICE A DAY Problems None recorded. Procedures Date Name Performed by ? 04/08/2021 XR, Hand, [address] [facility] [address] [place] [address] (Work Place) Results Lab Results None recorded. Past Encounters 04/08/2021 Pain of Left Hand Shana Gallegos, EXPRESS MANAGER: [address] [place] [address], Ph. Social History None recorded. Vaccine List None recorded. Plan of Care Reminders Provider Appointments None recorded. ? ? Lab None recorded. ? ? Referral None recorded. ? ? Procedures None recorded. ? ? Surgeries None recorded. ? ? Imaging None recorded. ? ? Vitals Blood Pressure 116/64 mm[Hg]
--- OUTSIDE RECORDS SUMMARY | 2022-07-11 06:20 | XMS_ITS | Encounter Summary ---
:1955 Author Care Team Providers Name Role Phone Lamont Chris MD Primary Care Provider [phone] [address] OTHER [phone] Reason for Visit None recorded. Assessment and Plan 1. End-stage renal disease HD 3x week monitor permacath 2. Atrial fibrillation metoprolol er 25 mg daily trosemide3 40 mg daily eliquis 5 mg bid asa 81 mg daily isosorbide er 30 mg daily 3. Cardiomyopathy metoprolol er 25 mg daily torsemide3 40 mg daily eliquis 5 mg bid asa 81 mg daily isosorbide er 30 mg daily 4. Hyperlipidemia atorvastatin 80 mg daily ezetimibe 10 mg daily 5. Neuropathy oxycodone 5 mg q6hr prn primidone 50 mg hs questron 4 gm bid 6. Type 2 diabetes mellitus glargine 10 units daily lispro 3 units AC, sliding scale 7. Chronic kidney disease stage 4 monitor labs 8. Asthenia PT OT eval and treat fall precautions frequent safety checks 9. Anemia monitor labs Discussion Note: None recorded.Patient educational [...] lete list Medications Administered None recorded. Vitals None recorded. Results Lab Results None recorded. Allergies Code Code System Name Reaction Severity Onset [id number] RxNorm Bactrim ? ? ? Problems Name [...] you have a medical power of Y ip attorney? What was the date of your most 04/21/2022 recent tobacco screening? Do you have an advanced Y directive? Do you use any illicit or N recreational drugs? Where do you live? [facility] Notes: home alone, has flight of [...] alcohol use? Functional Status Unknown. Past Encounters 04/15/2022 End-stage Renal Disease; Atrial Fibrilla tion; Cardiomyopathy; Hyperlipidemia; Neuropathy; Type 2 Diabetes Mellitus; Chronic Kidney Disease Stage 4; Asthenia; Anemia Marielos Alvarez, OBSERVER GRAVITY PROSPECTING: [address] , [place] [address], Ph. History of Present Illness Note: <div>seen today for initial intake visit-</div><div>67 yom admitted to for rehab after preseniting to the hospital 04/10, with volume overload and initiated on hemodialysis via catheter during this hospital stay- with fevers unclear etiology, possibly pneumonia, concern for line infection but multiple blood cultures negative. Dr. Saab, - Permacath was placed by Dr. Batsita of IR on 04/05, - will need to confirm out HD arranged in [place]? Nasal MRSA screen negative, sputum (04/11) with mod epis/mod WBC/few GPC/rare GNR, chest CT showing posterior left lower lobe airspace disease/small left pleural effusion, and bilateral lowe extremity duplex showing no DVT, blood cultures from permacath negative.</div><div>
</div><div>CAOx3 sitting up in wheelchair, lungs clear, right permacath intact, 2+ edema BLE, tolerated HD today, good po intake so far</div>Review of Systems: ROS as noted in the HPI Review of Systems None recorded. Physical Exam ? General Adult Exam Reported By: Patient Constitutional: General Appearance: well-dev eloped. Level of Distress: NAD. Ambulation: in wheelchair Psychiatric: Insight: good judgement. Men ryland Status: active and alert, normal mood, normal affect. Orienta tion: to time, to place, to person. Memory: recent memory normal , remote memory normal Head: Head: normocephalic Eyes: Lids and Conjunctivae: non-i njected. Sclerae: non-icteric ENMT: Hearing: no hearing loss. Or opharynx: moist mucous membranes Neck: Neck: supple Lungs: Auscultation: breath sounds normal, good air movement, no wheezing, no rales/crackles, no rhonch i Cardiovascular: Heart Auscultation: regularl y irregular Abdomen: Bowel Sounds: normal, soft, no guarding, non-distended Musculoskeletal:: Extremities: no cyanosis, ed rashid; 2+ BLE Neurologic: Cranial Nerves: grossly inta ct Skin: Inspection and palpation: no rash Notes: <div>04/14 wbc 8.7 h/h 8.2/25 .1 plt 197 na 127 k 4.1 bun 47 creat 3.6 </div>
--- OUTSIDE RECORDS SUMMARY | 2022-07-11 06:20 | XMS_ITS | Encounter Summary ---
:1955 Author Care Team Providers Name Role Phone Lamont Chris MD Primary Care Provider [phone] [facility] 1st Floor OTHER [phone] Reason for Visit Acute Rounding Visit Assessment and Plan 1. Neuropathy oxycodone 5 mg q6hr prn primidone 50 mg hs questron 4 gm bid 2. Chronic kidney disease stage 4 monitor labs 3. Asthenia PT OT eval and treat [...] lete list Medications Administered None recorded. Vitals Weight Blood Pressure 195.5 lbs 137/64 mm[Hg] Results Lab Results None recorded. Allergies Code Code System Name Reaction Severity Onset 918398 RxNorm Bactrim ? ? ? Problems Name [...] you have a medical power of Y recreational programs director? What was the date of your most [...] drugs? Where do you live? [facility] Notes: home alone, has flight of stairs but now matamoros s a stair lift What is your relationship status? Notes : Was in 2001, then had new relatio nship and broke up, so not act ually . Functional Status Unknown. Past Encounters 04/20/2022 Neuropathy; Chronic Kidney Disease Stage 4; Asthenia Marielos Alvarez DOG BREEDER: [address] [facility] , [place] [address], Ph. 04/15/2022 End-stage Renal Disease; Atrial Fibrilla tion; Cardiomyopathy; Hyperlipidemia; Neuropathy; Type 2 Diabetes Mellitus; Chronic Kidney Disease Stage 4; Asthenia; Anemia Marielos Alvarez, DOG BREEDER: [address] [address] , [place] [address], Ph. History of Present Illness Note: <div>seen today for acute rounding visit, CAOx3 sitting up in wheelchair, min assist with ambulation, lungs clear, tolerating current medicaitons and treatments, good po intake</div>Review of Systems: ROS as noted in the HPI Review of Systems ? PHC Brief Geriatric ROS Reported By: Patient Physical Exam ? General Adult Exam Reported By: Patient Constitutional: General Appearance: well-dev eloped. Level of Distress: NAD. Ambulation: limited ambulati on, ambulation with walker, in wheelchair; min assist with ambulation Psychiatric: Insight: good judgement. Men ryland Status: [...]
--- OUTSIDE RECORDS SUMMARY | 2022-07-11 06:21 | XMS_ITS ---
:1955 Author Care Team Providers Name Role Phone MERCED MANE MD OTHER [phone] SPENCER AVILA MD Referring Provider [phone] ENRIQUE GRANADOS MD Primary Care Provider [phone] Allergies Code Code System Name Reaction Severity Status Onset NKDA ? Notes: Some allergies listed in Contin [facility] Emergency Department Document (Transition of Care) #[id number] could not be added to this pat ient's chart. Please review this document and add these allergies to the patient's jann rt manually as needed. Medications Name Status Start Date Stop Date ? ? Adult Low Dose Aspirin 81 mg tablet,delayed release Active ? Not available Take 1 tablet every day by oral route. atorvastatin 80 mg tablet Active ? Not av ailable TAKE 1 TABLET BY MOUTH EVERY DAY bumetanide 2 mg tablet Unknown ? Not avail able Take 1 tablet twice a day by oral route for 90 days. Calcium 600 Active ? Not available Calcium 600 + D(3) Unknown ? Not available 1 TABLET BY ORAL ROUTE ONCE DAILY carvedilol 3.125 mg tablet Unknown ? Not a vailable Take 2 tablets twice a day by oral route. carvedilol 6.25 mg tablet Completed ? 2017 Take 1 tablet twice a day by oral route. clopidogrel 75 mg tablet Completed ? 019 TAKE 1 TABLET BY MOUTH EVERY DAY Co Q-10 100 mg capsule Active ? Not avail able Take 1 capsule every day by oral route. Crestor 40 mg tablet Unknown ? Not availab le Take 1 tablet every day by oral route. Daily Multi-Vitamin Active ? Not availabl e Daily Multi-Vitamin tablet Unknown ? Not a vailable & [employer] Entresto 24 mg-26 mg tablet Active ? Not available Take 1 tablet twice a day by oral route as directed for 90 days . ezetimibe 10 mg tablet Active ? Not avail able TAKE 1 TABLET BY MOUTH EVERY DAY ferrous fumarate 324 mg (106 mg iron) tablet Unknown ? Not available 1 tab PO daily ferrous sulfate 325 mg (65 mg iron) tablet Completed ? 08/09/2018 TAKE 1 TABLET BY MOUTH EVERY DAY Humalog KwikPen (U-100) Insulin 100 unit/mL subcutaneous Complet ed ? 04/26/2018 Inject 10 units 3 times a day by subcutaneous route. hydralazine 10 mg tablet Active ? Not lee ilable TAKE 1 TABLET BY MOUTH TWICE A DAY DIRECTED isosorbide mononitrate ER 30 mg tablet,extended release 24 hr Ac tive ? Not available TAKE 1 TABLET BY MOUTH EVERY DAY Kayexalate oral powder Unknown ? Not avail able Take 15 g every day by oral route as needed for 1 day. Lantus U-100 Insulin 100 unit/mL subcutaneous solution Active ? Not available 32 UNITS ONCE DAILY AT BEDTIME Lasix 20 mg tablet Unknown ? Not available Take 1 tablet every day by oral route. Lasix 80 mg tablet Unknown ? Not available Take 1 tablet twice a day by oral route as directed for 90 days . lisinopril 10 mg tablet Unknown ? Not avai lable TAKE 1 TABLET BY MOUTH EVERY DAY lisinopril 5 mg tablet Completed ? 9 Take 1 tablet every day by oral route as directed for 90 days. metoprolol succinate ER 25 mg tablet,extended release 24 hr Acti ve ? Not available TAKE 1 TABLET BY MOUTH TWICE A DAY mupirocin 2 % topical ointment Unknown ? N ot available APPLY A SMALL AMOUNT TO BILATERAL NOSTR ILS TWICE DAILY FOR 5 DAYS (5 DAYS BEFORE SURGERY) nitroglycerin 0.4 mg sublingual tablet Active ? Not available PLACE 1 TABLET UNDER TONGUE EVERY 5 MIN S, UP TO 3 DOSES NEEDED FOR CHEST PAIN Novolog U-100 Insulin aspart Active ? Not available 4-8 Novolog U-100 Insulin aspart 100 unit/mL subcutaneous solution U nknown ? Not available 8 UNITS Procrit 20,000 unit/2 mL injection solution Completed ? 12/22/2016 Take 2 mL every month by injection route. Procrit 40,000 unit/mL injection solution Unknown ? Not available ONCE A WEEK torsemide Unknown ? Not available 40mg BID torsemide 20 mg tablet Active ? Not avail able Take 2 tablets twice a day by oral route as directed for 90 day s. Vitamin C 500 mg tablet Active ? Not avai lable Take 1 tablet every day by oral route. Notes: Some medications listed in Cont inuity of Care Document (Transition of Care) #[id number] could not be added to this patient's chart. Please review this document and add these medications to the patient's chart manually as needed. Problems Name Status Onset Date Source ? Diabetes Mellitus Active ? Encounter Type II Diabetes Mellitus Uncontrolled Active ? Encounter Hyperlipidemia Active ? Encounter Hyperkalemia Active ? Encounter Essential Hypertension Active ? Encounter Coronary Atherosclerosis Active ? Encount er Coronary Arteriosclerosis Active ? Encoun ter Ischemic Congestive Cardiomyopathy Active ? Encounter Cardiomyopathy Active ? Encounter Systolic Heart Failure Active ? 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 Encounter Disorder of Carotid Artery Active ? Encou nter Chronic Kidney Disease Stage 3 Active ? E ncounter Notes: Some problems listed in Continu ity of Care Document (Transition of Care) #[id number] could not be added to this pat ient's chart. Please review this document and add these problems to the patient's mohit t manually as needed. Procedures Date Name Performed by ? 02/04/2015 Cabg Arterial Single Information not lee ilable 02/04/2015 Cabg Artery-vein Single Information not available 02/04/2015 Endoscopic Vein [place] Information not available 02/04/2015 CABG/angioplasty Information not avai lable 08/21/2014 CABG / Bypass Surgery Information not av ailable 10/28/2013 Insj/rplcmt Defib W/lead(s) Information not available ? Hernia Information not avai lable ? Tonsillectomy Information not avai lable 05/07/2013 Electrocardiogram [place] [id number] 05/17/2013 Electrocardiogram In[place] [id number] 05/08/2013 Echocardiogram Information not avai lable 06/13/2013 Electrocardiogram In[place] [id number] 06/13/2013 Ultrasound, Duplex, Arterial, [place] [facility] Radiology Dept Extremity [address] [place] [address] (Work [address]) 06/27/2013 Electrocardiogram In-House [place] [address]6949 09/06/2013 Electrocardiogram In-House [place] 13382 09/19/2013 Electrocardiogram In-House [place] 28900 01/21/2014 Electrocardiogram In-House [place] 70574 01/21/2014 Electrocardiogram In-House [place] 23704 01/30/2014 Electrocardiogram In[place]House [place] 73340 03/20/2014 Electrocardiogram In-House [place] 87352 05/20/2014 Electrocardiogram In-House [place] 95558 05/20/2014 Electrocardiogram In-House Order [place] 80329 05/20/2014 Ultrasound, Carotid Artery Duplex Scan [facility] [address] [place] [address] (Work Place) 06/27/2014 Electrocardiogram In-House [place] [address]78 08/07/2014 Electrocardiogram In-House Order [place] 70100 11/11/2014 Electrocardiogram In-House Order [place] 46659 01/06/2015 Electrocardiogram In-House Order [place] 08196 01/06/2015 Echocardiogram [facility] Cardiology Depa rtment [address] [place] [address] (Work Place) 01/06/2015 Exercise Stress Test with Myocardial [place] [facility] Perfusion [place] [address] (Work Place) 01/15/2015 Electrocardiogram In-House Order [place] 52352 01/15/2015 Cardiopulmonary Exercise Test [facility] Radio logy Dept [address] [place] [address] (Work Place) 02/17/2015 Electrocardiogram [place] [address]99 2015 Electrocardiogram In-House [place] [address]258 04/21/2015 Electrocardiogram In-House Order [place] 17833 04/21/2015 Echocardiogram [facility] Cardiology Depa rtment [address] [place] [address] (Work Place) 06/25/2015 Electrocardiogram In-House [place] 40296 09/24/2015 Electrocardiogram In-House [place] 64720 04/07/2016 Electrocardiogram In-House [place] 15037 12/22/2016 Electrocardiogram In-House [place] 6[address]11 12/22/2016 US, Echocardiogram [facility] Radiology Dept [address] [place] [address] (Work Place) 12/22/2016 US, Duplex, Carotid Artery [facility] Radiolog y Dept [address] [place] [address] (Work Place) 09/07/2017 Electrocardiogram In-House [place] 14337 04/19/2018 Electrocardiogram In-House [place] [id number] 04/26/2018 Electrocardiogram In[place]House [place] 39236 05/10/2018 Electrocardiogram In-House [place] 70289 08/09/2018 Electrocardiogram In-House [place] 45439 11/27/2018 Electrocardiogram In-House [place] 40903 01/24/2019 Electrocardiogram In-House [place] 16267 07/16/2019 Electrocardiogram In-House Order [place] 19826 Results Lab Results Date Name Specimen Result Interpretation Description Value Range Status Address ? 08/28/2019 Electrocardiogram ? EKG Result ? ? ? In-House Order For [place] Provider: For Judicial Administrative Assistant al Use Only 02/12/2019 BMP, Serum or ? No ? ? ? [facility] Plasma observation Refer ence recorded. Lab Wom en & Infants: 7 [address] 01/24/2019 Pro BNP (Pro Blood High nt-pro-B-ty 1796 0-90 F inal Cl B-type Natriuretic venous pe pg/mL 0 [place] ? Peptide), Serum or Natriuretic pg/m Lab: [address] [place], [place] 01/24/2019 BMP, Serum or Blood Low sodium,Na 134 137- Fi nal Cl Plasma venous mmol/L 146 [place] ? mmol Lab: 111 /L [address] [place], [place] ? ? Blood Normal potassium,K 4.7 3.5- Final [place] venous mmol/L 5.3 [place] ? mmol Lab: [address] /L [address] [place] [address] ? ? Blood Normal Chloride 101 98-1 Final Cl venous mmol/L 07 [place] ? mmol Lab: [address] /L [address] [place] ? ? Blood Low Carbon 19 23-3 Final [place] venous Dioxide mmol/L 2 [place] ? mmol Lab: [address] /L [address] [place] [address] ? ? Blood Normal Anion Gap 14 5-15 Final [place] venous mmol/L mmol [place] ? /L Lab: [address] [place] [address] ? ? Blood High Blood Urea 75 5-[address] venous Nitrogen mg/dL mg/d [place] ? L Lab: [address] [place] [address] ? ? Blood High Creatinine 2.3 0.6- Final [address] venous mg/dL 1.4 [place] ? mg/d Lab: [address] [place] [address] ? ? Blood Low Estimated 34 >=60 Final [place] venous GFR ( mL/m [place] ? [place] in/ Lab: [address] [place] [address], [place] ? ? Blood Low Estimated 29 >=60 Final [place] venous GFR (Non Afr mL/m [place] ? [place] in/ Lab: [address] [place] [address] ? ? Blood High BUN/creatin 32.6 10.0 Final [place] venous ine Ratio -20. [place] ? 0 Lab: [address] [place] ? ? Blood High Glucose 435 <100 Final [place] venous mg/dL -fas [place] ? ting Lab: 111 mg/d [address] [place] [address] ? ? Blood Normal Calcium 9.0 8.6- Final Cl venous mg/dL 10.3 [place] ? mg/d Lab: [address] [place] [address], [place] 01/24/2019 Electrocardiogram ? EKG Result SB 51 ? ? In-House bpm Order For with Cl normal Provider: axis For Judicial Administrative Assistant al and old Use Only ASMI witn nonspec ific lateral T wave changes 11/28/2018 Electrocardiogram ? EKG Result ? ? ? In-House Order For Cl Provider: For Judicial Administrative Assistant al Use Only 11/27/2018 BMP, Serum or Blood Low sodium,Na 136 137- Fi nal Cl Plasma venous mmol/L 146 [place] ? mmol Lab: [address] /L [address] [place] [address], [place] ? ? Blood Normal potassium,K 4.4 3.5- Final [place] venous mmol/L 5.3 [place] ? mmol Lab: [address] /[address] [place], [place] ? ? Blood Normal Chloride 100 98-1 Final Cl venous mmol/L 07 [place] ? mmol Lab: [address] /[address] [place], [place] ? ? Blood Normal Carbon 23 23-3 Final Cl venous Dioxide mmol/L 2 [place] ? mmol Lab: [address] /[address] [place], [place] ? ? Blood Normal Anion Gap 13 5-15 Final [place] venous mmol/L mmol [place] ? /L Lab: [address] [place], [place] ? ? Blood High Blood Urea 55 5-[address] venous Nitrogen mg/dL mg/d [place] ? L Lab: [address] [place] [address], [place] ? ? Blood High Creatinine 2.1 0.6- Final [address] venous mg/dL 1.4 [place] ? mg/d Lab: [address] [place], [place] ? ? Blood Low Estimated 37 >=60 Final [place] venous GFR ( mL/m [place] ? [place] in/ Lab: [address] [place] [address] ? ? Blood Low Estimated 32 >=60 Final [place] venous GFR (Non Afr mL/m [place] ? [place] in/ Lab: [address] [place] [address], [place] ? ? Blood High BUN/creatin 26.2 10.0 Final [place] venous ine Ratio -20. [place] ? 0 Lab: [address] [place] [address] ? ? Blood High Glucose 368 <100 Final [place] venous mg/dL -fas [place] ? ting Lab: 111 mg/d [address] [place], [place] ? ? Blood Normal Calcium 9.1 8.6- Final [place] venous mg/dL 10.3 [place] ? mg/d Lab: [address] [place] [address], [place] 11/27/2018 BMP, Serum or Blood Low sodium,Na 136 137- Fi nal [place] Plasma venous mmol/L 146 [place] ? mmol Lab: 111 /L [address] ? ? Blood Normal potassium,K 4.4 3.5- Final [place] venous mmol/L 5.3 [place] ? mmol Lab: 111 /L [address] ? ? Blood Normal Chloride 100 98-1 Final [place] venous mmol/L 07 [place] ? mmol Lab: 111 /L [address] ? ? Blood Normal Carbon 23 23-3 Final [place] venous Dioxide mmol/L 2 [place] ? mmol Lab: 111 /L [address] ? ? Blood Normal Anion Gap 13 5-15 Final [place] venous mmol/L mmol [place] ? /L Lab: [address] ? ? Blood High Blood Urea 55 5-[address] venous Nitrogen mg/dL mg/d [place] ? L Lab: [address] ? ? Blood High Creatinine 2.1 0.6- Final [address] venous mg/dL 1.4 [place] ? mg/d Lab: [address] ? ? Blood Low Estimated 37 >=60 Final [place] venous GFR ( mL/m [place] ? [place] in/ Lab: [address] ? ? Blood Low Estimated 32 >=60 Final [place] venous GFR (Non Afr mL/m [place] ? [place] in/ Lab: [address] ? ? Blood High BUN/creatin 26.2 10.0 Final [place] venous ine Ratio -20. [place] ? 0 Lab: [address] ? ? Blood High Glucose 368 <100 Final Cl venous mg/dL -fas [place] ? ting Lab: 111 mg/d [place] ? ? Blood Normal Calcium 9.1 8.6- Final Cl venous mg/dL 10.3 [place] ? mg/d Lab: [address], [place] 11/27/2018 Pro BNP (Pro Blood High nt-pro-B-ty 3750 0-90 F inal [place] B-type Natriuretic venous pe pg/mL 0 [place] ? Peptide), Serum or Natriuretic pg/m Lab: 111 Plasma Pept [address] [place] 08/09/2018 Electrocardiogram ? EKG Result Sinus ? ? In-House bradyca Order For rdia [place] Provider: For Judicial Administrative Assistant al Use Only 05/10/2018 Electrocardiogram ? EKG Result SB 53 ? ? In-House bpm Order For with [place] normal Provider: axis For Judicial Administrative Assistant al and Use Only interva ls with ASMI and nonspec ific inferio r and lateral T wave changes 04/26/2018 Electrocardiogram ? EKG Result Sinus ? ? In-House bradyca Order For rdia Cl Provider: For Judicial Administrative Assistant al Use Only 04/19/2018 Electrocardiogram ? EKG Result SB 58 ? ? In-House bpm Order For with Cl normal Provider: axis For Judicial Administrative Assistant al and Use Only interva ls, old ASMI and nonspec ific inferio r and lateral T wave changes 03/07/2018 Electrocardiogram ? EKG Result ? ? ? In-House Order For Cl Provider: For Judicial Administrative Assistant al Use Only 09/07/2017 BMP, Serum or Blood High Glucose 144 <100 Faye l Semc: 736 Plasma venous Random mg/dL -fas [facility] mg/d L ? ? Blood High BUN, Urea 42 5-25 Final Semc: 736 venous Nitrogen mg[facility] ? ? Blood High Creatinine 2.0 0.6- Final Semc: 736 venous mg/dL 1.4 [place] mg/d [facility] L ? ? Blood Low GFR Est 40 >=60 Final Semc: 73 6 venous mL/m [place] in/ St, [place] ? ? Blood Low eGFR Non 34 >=60 Final Semc: 7 36 venous mL/m [place] in/ St, [place] ? ? Blood High BUN/creatin 21.0 10-2 Final Semc : 736 [facility] [place] ? ? Blood Normal Na,sodium 139 137- Final Semc: 736 venous mmol/L 146 [place] mmol , [place] /L ? ? Blood Normal Potassium 4.9 3.5- Final Semc: 736 venous mmol/L 5.3 [place] mmol , [place] /L ? ? Blood Normal cL, 103 98-1 Final Semc: 736 venous Chloride mmol/L [address] [place], [place] /L ? ? Blood Normal CO2, Carbon 25 23-3 Final Semc : 736 venous Dioxide mmol/L 2 [place] mmol , [place] /L ? ? Blood Normal Anion Gap 11 5-15 Final Semc: 736 venous mmol/L mmol [place] /L , [place] ? ? Blood Normal Calcium 9.0 8.6- Final Semc: 73 6 venous mg/dL 10.3 [place] mg/d , [place] L 09/07/2017 Pro BNP (Pro Blood High Nt-probnp 2271 0-90 Fin al Semc: 736 B-type Natriuretic venous pg/mL 0 [place] Peptide), Serum or pg/m [facility] Plasma L 09/07/2017 Electrocardiogram ? EKG Result SB at ? ? In-House 55 bpm Order For with [place] normal Provider: axis For Judicial Administrative Assistant al and Use Only interva ls as well as old ASMI and nonspec ific inferol ateral T wave changes 12/22/2016 CBC W/ Auto Diff Blood Normal White Blood 7.1 X10 4.5 - Final Semc: 736 venous Count 3/uL 11.0 [place] X10 , [place] 3/uL ? ? Blood Low Red Blood 3.53 4.00 Final Semc: 736 venous Count X10 -5.5 [place] 6/uL 0 , [place] X10 6/uL ? ? Blood Low Hemoglobin 11.1 12.0 Final Semc: 736 venous g/dL -17. [place] 0 , [place] g/dL ? ? Blood Low Hematocrit 32.1 % 35.0 Final Semc: 736 venous -50. [place] 0 % , [place] ? ? Blood Normal Mean 90.9 fL 80.0 Final Semc: 736 venous Corpuscular -100 [place] Volume .0 , [place] fL ? ? Blood Normal Mean 31.4 pg 27.0 Final Semc: 736 venous Corpuscular -34. [place] Hemoglobin 0 pg , [place] ? ? Blood Normal Mean 34.6 31.0 Final Semc: 736 venous Corpuscular g/dL -36. [place] HGB,concent 0 St, [place] g/dL ? ? Blood Normal Red Cell 13.5 % 11.5 Final Semc: 7 36 venous Distribution -15. [place] Width 0 % , [place] ? ? Blood Normal Platelet 222 X10 150- Final Semc: 736 venous Count 3/uL 400 [place] X10 , [place] 3/uL ? ? Blood Normal Neutrophils 59.6 % ? Final Semc : 736 venous % [facility], [place] ? ? Blood Normal Lymphocyte 30.9 % ? Final Semc: 736 venous % [facility], [place] ? ? Blood Normal Monocytes % 5.3 % ? Final Semc : 736 venous [facility], [place] ? ? Blood Normal Eosinophils 3.8 % ? Final Semc : 736 venous % [facility], [place] ? ? Blood Normal Basophils % 0.4 % ? Final Semc : 736 venous [facility], [place] ? ? Blood Normal Immature 0.0 % ? Final Semc: 7 36 venous Granulocyte [place] % , [place] ? ? Blood Normal Immature 0.00 0.00 Final Semc: 7 36 venous Granulocyte X10 -0.0 [place] # 3/uL 9 , [place] X10 3/uL ? ? Blood Normal Neutrophils 4.3 X10 1.5- Final Brenda c: 736 venous # 3/uL 7.8 [place] X10 , [place] 3/uL ? ? Blood Normal Lymphocyte 2.2 X10 1.0- Final Semc : 736 venous # 3/uL 4.8 [place] X10 , [place] 3/uL ? ? Blood Normal Monocytes # 0.4 X10 0.0- Final Brenda c: 736 venous 3/uL 0.8 [place] X10 , [place] 3/uL ? ? Blood Normal Eosinophils 0.3 X10 0.0- Final Brenda c: 736 venous # 3/uL 0.5 [place] X10 , [place] 3/uL ? ? Blood Normal Basophils # 0.0 X10 0.0- Final Brenda c: 736 venous 3/uL 0.2 [place] X10 , [place] 3/uL 12/22/2016 Pro BNP (Pro Blood High Nt-probnp 1254 0-90 Fin al Semc: 736 B-type Natriuretic venous pg/mL 0 [place] Peptide), Serum or pg/m [facility] Plasma L 12/22/2016 CMP, Serum or Blood High Glucose 384 <100 Faye l Semc: 736 Plasma venous Random mg/dL -fas [place] ting [facility] mg/d L ? ? Blood High BUN, Urea 49 5-25 Final Semc: 736 venous Nitrogen mg/dL mg/d [place] Blood L ? ? Blood High Creatinine 1.7 0.6- Final Semc: 736 venous mg/dL 1.4 [place] mg/d L ? ? Blood Low GFR Est 49 >=60 Final Semc: 73 6 venous mL/m [place] in/ St, [place] ? ? Blood Low eGFR Non 42 >=60 Final Semc: 7 36 venous mL/m [place] in/ St, [place] ? ? Blood High BUN/creatin 28.8 10-2 Final Semc : 736 venous ine Ratio 0 [place] , ? ? Blood Low Na,sodium 133 137- Final Semc: 736 venous mmol/L 146 [place] mmol , /L ? ? Blood Normal Potassium 4.9 3.5- Final Semc: 736 venous mmol/L 5.3 [place] mmol , /L ? ? Blood Low cL, 96 98-1 Final Semc: 736 venous Chloride [facility]/L [facility] ? ? Blood Normal CO2, Carbon 23 23-3 Final Semc : 736 venous Dioxide mmol/L 2 [place] mmol , /L ? ? Blood Normal Anion Gap 14 5-15 Final Semc: 736 venous mmol/L mmol [place] /L ? ? Blood Normal Calcium 9.2 8.6- Final Semc: 73 6 venous mg/dL 10.3 [place] mg/d [facility] L ? ? Blood Normal Bilirubin,t < 0.2 <1.2 Final Semc : 736 venous otal mg/dL mg/d [place] L [facility] ? ? Blood High Alkaline 132 U/L 40-1 Final Semc: 736 venous Phosphatase 29 [place] U/L [facility] ? ? Blood Normal AST/SGOT 16 U/L 15-4 Final Semc: 7 36 venous 1 [place] U/L [facility] ? ? Blood Normal ALT/SGPT 25 U/L 14-6 Final Semc: 7 36 venous 3 [place] U/L , ? ? Blood Low Albumin 3.7 4.0- Final Semc: 73 6 venous g/dL 5.0 [place] g/dL [facility] ? ? Blood Normal Albumin/yang 1.0 1.0- Final Semc : 736 venous bulin Ratio 2.6 [place] [facility] ? ? Blood Normal TP, 7.3 6.4- Final Semc: 736 venous Protein,tota g/dL 8.3 [place] g/dL [facility] 12/22/2016 Lipid Panel, Serum Blood Normal Cholesterol 134 <2 00 Final Semc: 736 venous mg/dL mg/d [facility] ? ? Blood High Triglycerid 286 <150 Final Semc : 736 venous es mg/dL mg/d [place] L [facility] ? ? Blood Low HDL 26 >40 Final Semc: 736 venous Cholesterol mg/dL mg/d [place] L [facility] ? ? Blood Normal LDL 51 <130 Final Semc: 736 venous Cholesterol mg/dL [facility]d [facility] ? ? Blood Normal chol/HDL 5.2 ? Final Semc: 7 36 venous Ratio [facility] ? ? Blood Normal LDL/HDL 2.0 ? Final Semc: 73 6 venous Ratio [facility] 12/22/2016 HbA1C (Hemoglobin Blood High Hemoglobin 12.6 % 4.3- Final Semc: 736 a1C), Blood venous a1C 5.9 [place] % [facility] ? ? Blood Normal Estimated 315 ? Final Semc: 736 venous Average mg/dL [place] [facility] Pro BNP (Pro Blood High Nt-probnp 1622 0-90 Fin al Semc: 736 B-type Natriuretic venous pg/mL 0 [place] Peptide), Serum or pg/m [facility] Plasma L 06/25/2015 BMP, Serum or Blood High Glucose 213 <100 Faye l Semc: 736 Plasma venous Random mg/dL -fas [place] ting [facility] mg/d L ? ? Blood High BUN, Urea 53 5-25 Final Semc: 736 venous Nitrogen mg/dL [facility] ? ? Blood High Creatinine 1.8 0.6- Final Semc: 736 venous mg/dL 1.4 [place] mg/d [facility] L ? ? Blood Low GFR Est 47 >=60 Final Semc: 73 6 venous mL/m [place] in/ St, [place] ? ? Blood Low eGFR Non 39 >=60 Final Semc: 7 36 venous mL/m [place]/ , [place] ? ? Blood High BUN/creatin 29.4 10-2 Final Semc : 736 venous ine Ratio 0 [place] , [place] ? ? Blood Normal Na,sodium 137 137- Final Semc: 736 venous mmol/L 146 [place] mmol , [place] /L ? ? Blood Normal Potassium 5.0 3.5- Final Semc: 736 venous mmol/L 5.3 [place] mmol [facility] /L ? ? Blood Normal cL, 100 98-1 Final Semc: 736 venous Chloride mmol/L 07 [place] mmol , [place] /L ? ? Blood Normal CO2, Carbon 24 23-3 Final Semc : 736 venous Dioxide mmol/L 2 [place] mmol , [place] /L ? ? Blood Normal Anion Gap 13 5-15 Final Semc: 736 venous mmol/L mmol [place] /L [facility] ? ? Blood Normal Calcium 9.2 8.6- Final Semc: 73 6 venous mg/dL 10.3 [place] mg/d [facility] L 04/21/2015 Pro BNP (Pro Blood High Nt-probnp 1673 0-90 Fin al Semc: 736 B-type Natriuretic venous pg/mL 0 [place] Peptide), Serum or pg/m [facility] Plasma L 04/21/2015 BMP, Serum or Blood High Glucose 351 <100 Faye l Semc: 736 Plasma venous Random mg/dL -fas [place] ting [facility] mg/d L ? ? Blood High BUN, Urea 54 5-25 Final Semc: 736 venous [facility] ? ? Blood High Creatinine 1.5 0.6- Final Semc: 736 venous mg/dL 1.4 [place] mg/d [facility] L ? ? Blood Normal Creatinine ? ? Final Semc: 736 venous Clearance, [facility] ? ? Blood Low GFR Est 58 >=60 Final Semc: 73 6 venous mL/m [place] in/ [facility] on ? ? Blood Low eGFR Non 48 >=60 Final Semc: 7 36 venous mL/m [place] in/ [facility] on ? ? Blood High BUN/creatin 36.0 10-2 Final Semc : 736 [facility] [place] ? ? Blood Low Na,sodium 136 137- Final Semc: 736 venous mmol/L 146 Turner mmol , [place] /L ? ? Blood Normal Potassium 4.7 3.5- Final Semc: 736 venous mmol/L 5.3 [place] mmol , [place] /L ? ? Blood Normal cL, 99 98-1 Final Semc: 736 venous Chloride mmol/L 07 [place] mmol , [place] /L ? ? Blood Normal CO2, Carbon 23 23-3 Final Semc : 736 venous Dioxide mmol/L 2 [place] mmol , [place] /L ? ? Blood Normal Anion Gap 14 5-15 Final Semc: 736 venous mmol/L mmol Turner /L , [place] ? ? Blood Normal Calcium 9.0 8.6- Final Semc: 73 6 venous mg/dL 10.3 [place] mg/d , [place] L 01/27/2015 CBC W/ Auto Diff Normal White Blood 7.5 4.5- Final Semc: 736 Count k/cmm 11.0 Turner k/cm , [facility] ? ? Low Red Blood 3.65 4.4- Final Semc: 736 Count m/cmm 5.9 Turner m/cm , [facility] ? ? Low Hemoglobin 11.2 12.0 Final Semc: 736 g/dL -17. Turner 0 , [place] g/dL ? ? Low Hematocrit 32.5 % 35.0 Final Semc: 736 -50. Turner 0 % , [place] ? ? Normal Mean 89.0 fL 80.0 Final Semc: 736 Corpuscular -94. [place] Volume 0 fL , [place] ? ? Normal Mean 30.7 pg 27-3 Final Semc: 736 Corpuscular [address] [place] ? ? Normal Mean 34.5 32-3 Final Semc: 736 Corpuscular g/dL 6 [place] HGB,concent g/dL [facility] [place] ? ? Normal Red Cell 13.9 % 11.0 Final Semc: 7 36 Distribution -14. [place] Width 5 % [facility] ? ? Normal Platelet 210 150- Final Semc: 7 36 Count k/cmm 450 Turner k/cm , [place] m ? ? Normal Neutrophils 57.3 % 45-7 Final Semc : 736 % 8 % Turner [facility] ? ? Normal Lymphocyte 28.5 % 16-4 Final Semc: 736 % 6 % [facility] ? ? Normal Monocytes % 7.4 % 3-12 Final Semc : 736 % [facility], [place] ? ? High Eosinophils 5.7 % 0-5 Final Semc : 736 % % [facility], [place] ? ? Normal Basophils % 0.8 % 0-2 Final Semc : 736 % [facility], [place] ? ? Normal Immature 0.3 % 0.0- Final Semc: 7 36 Granulocyte 0.8 [place] % % , [place] ? ? Normal Immature 0.02 0.00 Final Semc: 7 36 Granulocyte k/cmm -0.0 [place] # 9 , [place] k/[facility] ? ? Normal Neutrophils 4.3 1.8- Final Semc : 736 # k/cmm 7.7 [place] k/[facility], [facility] ? ? Normal Lymphocyte 2.1 1.0- Final Semc: 736 # k/cmm 4.8 Turner k/cm , [facility] ? ? Normal Monocytes # 0.6 0.0- Final Semc : 736 k/cmm 0.8 Turner k/cm , [facility] ? ? Normal Eosinophils 0.4 0-0. Final Semc : 736 # k/cmm 5 [place] k/[facility], [facility] ? ? Normal Basophils # 0.1 0-0. Final Semc : 736 k/cmm 2 [facility], [facility] 01/27/2015 PT/INR Normal Prothrombin 13.6 11.7 Final Semc: 736 Time sec -14. [place] (Result) 7 St[facility] [place] sec ? ? Normal Inr 1.0 ? Final Semc: 736 [facility] 01/27/2015 Activated Partial Normal PTT Act 25.2 22.3 Final Semc: 736 Thromboplastin Partial sec -35. C [place] Time, Coagulation Thromboplast [facility] Assay, Blood in sec 01/27/2015 BMP, Serum or High Glucose 234 <100 Faey l Semc: 736 Plasma Random mg/dL -fas [place] ting [facility] mg/d L ? ? High BUN, Urea 67 5-25 Final Semc: 736 Nitrogen mg/dL [facility] ? ? High Creatinine 2.0 0.6- Final Semc: 736 mg/dL 1.4 Turner mg/d , [place] L ? ? Normal Creatinine ? ? Final Semc: 736 Clearance, [facility] [place] ? ? Low GFR Est 41 >=60 Final Semc: 73 6 mL/m [place] in/ [facility] [place] ? ? Low eGFR Non 34 >=60 Final Semc: 7 36 mL/m [place] in/ [facility] [place] ? ? High BUN/creatin 33.5 10-2 Final Semc : 736 ine Ratio 0 [place] , [place] ? ? Low Na,sodium 136 137- Final Semc: 736 mmol/L 146 [place] mmol , [place] /L ? ? Normal Potassium 4.8 3.5- Final Semc: 736 mmol/L 5.[address], [place] /L ? ? Normal cL, 100 98-1 Final Semc: 736 Chloride mmol/L 07 [place] mmol , [place] /L ? ? Low CO2, Carbon 22 23-3 Final Semc : 736 Dioxide mmol/L 2 [place] mmol , [place] /L ? ? Normal Anion Gap 14 5-15 Final Semc: 736 mmol/L mmol Turner /L , [place] ? ? Normal Calcium 9.2 8.6- Final Semc: 73 6 mg/dL 10.3 [place] mg/d , [place] L 01/06/2015 Pro BNP (Pro High Nt-probnp 2730 0-90 Fin al Semc: 736 B-type Natriuretic pg/mL 0 [place] Peptide), Serum or pg/m [facility] Plasma L 01/06/2015 BMP, Serum or High Glucose 265 <100 Faye l Semc: 736 Plasma Random mg/dL -fas [place] ting , [place] mg/d L ? ? High BUN, Urea 40 5-25 Final Semc: 736 Nitrogen mg/dL [facility] ? ? High Creatinine 1.5 0.6- Final Semc: 736 mg/dL 1.4 [place] mg/d , [place] L ? ? Normal Creatinine ? ? Final Semc: 736 Clearance, [facility] [place] ? ? Low GFR Est 58 >=60 Final Semc: 73 6 mL/m [place] in/ St, [place] ? ? Low eGFR Non 48 >=60 Final Semc: 7 36 mL/m [place] in/ , [place] ? ? High BUN/creatin 26.7 10-2 Final Semc : 736 ine [facility] [place] ? ? Normal Na,sodium 138 137- Final Semc: 736 mmol/L 146 Turner mmol , [place] /L ? ? High Potassium 5.8 3.5- Final Semc: 736 mmol/L 5.3 Turner mmol , [place] /L ? ? Normal cL, 103 98-1 Final Semc: 736 Chloride mmol/L 07 [place] mmol , [place] /L ? ? Low CO2, Carbon 22 23-3 Final Semc : 736 Dioxide mmol/L 2 Turner mmol , [place] /L ? ? Normal Anion Gap 13 5-15 Final Semc: 736 mmol/L mmol [place] /L [facility] ? ? Normal Calcium 9.1 8.6- Final Semc: 73 6 mg/dL 10.3 [place] mg/d [facility] L 11/11/2014 Pro BNP (Pro High Nt-probnp 2594 0-90 Fin al Semc: 736 B-type Natriuretic pg/mL 0 [place] Peptide), Serum or pg/m [facility] Plasma L 11/11/2014 BMP, Serum or Low Glucose 60 <100 Faye l Semc: 736 Plasma Random mg/dL -fas [place] ting [facility] mg/d L ? ? High BUN, Urea 43 5-25 Final Semc: 736 Nitrogen mg/dL mg/d [facility] e Blood L [facility] ? ? High Creatinine 1.6 0.6- Final Semc: 736 mg/dL 1.4 Turner mg/d [facility] L ? ? Normal Creatinine ? ? Final Semc: 736 Clearance, [facility] on ? ? Low GFR Est 54 >=60 Final Semc: 73 6 mL/m [place] in/ , [place] ? ? Low eGFR Non 44 >=60 Final Semc: 7 36 mL/m [place] in/ , [place] ? ? High BUN/creatin 26.9 10-2 Final Semc : 736 ine [facility], [place] ? ? Normal Na,sodium 139 137- Final Semc: 736 mmol/L 146 Turner mmol , [place] /L ? ? Normal Potassium 5.2 3.5- Final Semc: 736 mmol/L 5.[address], [place] /L ? ? Normal cL, 104 98-1 Final Semc: 736 Chloride mmol/L 07 [place] mmol , [place] /L ? ? Low CO2, Carbon 19 23-3 Final Semc : 736 Dioxide mmol/L 2 [place] mmol , [place] /L ? ? High Anion Gap 16 5-15 Final Semc: 736 mmol/L mmol Turner /L [facility] ? ? Normal Calcium 8.9 8.6- Final Semc: 73 6 mg/dL 10.3 [place] mg/d [facility] L 05/17/2013 Basic Metabolic High Glucose 180 <100 Fi nal Semc: 736 Panel Random mg/dL -fas [facility] mg/d L ? ? High BUN, Urea 31 5-25 Final Semc: 736 Nitrogen mg/dL mg/d [facility] e Blood L [facility] ? ? High Creatinine 1.5 0.6- Final Semc: 736 mg/dL 1.4 Turner mg/d [facility] L ? ? Low GFR Est 58 >=60 Final Semc: 73 6 mL/m [place] in/ , [place] ? ? Low eGFR Non 48 >=60 Final Semc: 7 36 mL/m [place] in/ St, [place] ? ? High BUN/creatin 20.7 10-2 Final Semc : 736 ine Ratio [address] [facility] ge [facility] ? ? Low Na,sodium 133 135- Final Semc: 736 mmol/L 144 Turner mmol [facility] /L ? ? Normal Potassium 4.5 3.3- Final Semc: 736 mmol/L 5.1 Turner mmol , [place] /L ? ? Normal cL, 100 98-1 Final Semc: 736 Chloride [facility]/L [facility] [place] /L ? ? Normal CO2, Carbon 23 23-3 Final Semc : 736 Dioxide mmol/L 2 Turner mmol , [place] /L ? ? Normal Anion Gap 10 5-15 Final Semc: 736 mmol/L mmol Turner /L [facility] ? ? Normal Calcium 9.6 8.6- Final Semc: 73 6 mg/dL 10.3 Turner mg/d [facility] L 05/07/2013 Ldl ? Ldl 94 ? ? ? Electrocardiogram ? EKG Result Sinus ? ? In-House bradyca Order For rdia at Cl 57 bpm, Provider: normal For Judicial Administrative Assistant al axis Use Only and interva ls, PRWP, lateral ST-T wave changes are nonspec ific, QRS 100 ms ? Electrocardiogram ? EKG Result Sinus ? ? In-House bradyca Order For rdia, [place] rate Provider: 55bpm, For Judicial Administrative Assistant al normal Use Only axis & interva ls, old Anteros eptal IA, nonspec ific lateral ST-T changes . ? Electrocardiogram ? EKG Result ? ? ? In-House Order For [place] Provider: For Judicial Administrative Assistant al Use Only ? Electrocardiogram ? EKG Result NSR at ? ? In-House 64 bpm Order For with Cl normal Provider: axis For Judicial Administrative Assistant al and Use Only interva ls as well as early repolar ization changes and nonspec ific lateral T wave flatten ing ? Electrocardiogram ? EKG Result NSR@67/ ? ? In-House min, Order For normal [place] axis & Provider: interva For Inter nal ls, old Use Only ASMI, nonspec ific ST-T changes in inferol ateral leads. ? Electrocardiogram ? EKG Result sinus ? ? In-House bradyca Order For rdia Cl with Provider: normal For Judicial Administrative Assistant al axis Use Only and interva ls with PRPP ? Electrocardiogram ? EKG Result Sinus ? ? In-House bradyca Order For rdia, Cl rate Provider: 57/min, For Inter nal normal Use Only axis, old anteros eptal IA ? Electrocardiogram ? EKG Result NSR at ? ? In-House 60 bpm Order For with Cl CODEY and Provider: PRWP For Judicial Administrative Assistant al with Use Only nonspec ific T wave changes ? Electrocardiogram ? EKG Result NSR at ? ? In-House 62 bpm Order For with [place] old Provider: ASMI For Judicial Administrative Assistant al Use Only ? Electrocardiogram ? EKG Result ? ? ? In-House Order For [place] Provider: For Judicial Administrative Assistant al Use Only ? Electrocardiogram ? EKG Result ? ? ? In-House Order For [place] Provider: For Judicial Administrative Assistant al Use Only ? Electrocardiogram ? EKG Result ? ? ? In-House Order For [place] Provider: For Judicial Administrative Assistant al Use Only ? Electrocardiogram ? EKG Result NSR@65b ? ? In-House pm, Order For normal [place] axis, Provider: PRWP - For Judicial Administrative Assistant al possibl Use Only e old anteros eptal IA. ? Electrocardiogram ? EKG Result NSR@58/ ? ? In-House min, Order For normal Cl axis & Provider: interva For Inter nal ls, old Use Only anteros eptal IA. ? Electrocardiogram ? EKG Result NSR at ? ? In-House 60 bpm Order For with Cl old Provider: ASMI For Judicial Administrative Assistant al and Use Only nonspec ific T wave changes ? Electrocardiogram ? EKG Result NSR at ? ? In-House 60 bpm Order For with [place] CODEY, Provider: PRWP, For Judicial Administrative Assistant al and Use Only nonspec ific T wave changes ? Electrocardiogram ? EKG Result ? ? ? In-House Order For Cl Provider: For Judicial Administrative Assistant al Use Only ? Electrocardiogram ? EKG Result NSR@61/ ? ? In-House min, Order For Normal Cl axis & Provider: interva For Inter nal ls. Use Only PRWP, possibl e old Anteros eptal IA ? Electrocardiogram ? EKG Result Sinus ? ? In-House Rhythm Order For Rate [place] 65, PA Provider: 160, For Judicial Administrative Assistant al QRS 96, Use Only QT 428, QTc 445, Normal axis ? Electrocardiogram ? EKG Result NSR at ? ? In-House 68 bpm Order For with Cl [facility] and Provider: repolar For Inter nal ization Use Only abnorma lity ? Electrocardiogram ? EKG Result Sinus ? ? In-House Rhythm, Order For Possibl [place] e old Provider: anteros For Inter nal eptal Use Only infarct (q waves in V1 and V2). Normal interva ls, and axis, Rate 60 ? Electrocardiogram ? EKG Result NSR at ? ? In-House 66 bpm Order For with [place] PRWP Provider: and For Judicial Administrative Assistant al nonspec Use Only ific T wave changes ? Electrocardiogram ? EKG Result NSR at ? ? In-House 75 bpm Order For with [place] PRWP/ol Provider: d ASMI For Judicial Administrative Assistant al with Use Only nonspec ific T wave changes Past Encounters None recorded. Social History Tobacco Smoking Status Former Smoker (2 packs per day) Note s: Quit 12yrs ago Vaccine List None recorded. Plan of Care Reminders Provider Appointments None recorded. ? ? Lab None recorded. ? ? Referral None recorded. ? ? Procedures None recorded. ? ? Surgeries None recorded. ? ? Imaging None recorded. ? ? Vitals 07/16/2019 02:40PM Established Patient 20 Height Weight BMI Blood Pressure 77 in 219 lbs 16 oz 26.1 kg/m2 134/73 mm[Hg] 01/24/2019 10:00AM Established Patient 20 Height Weight BMI Blood Pressure 77 in 214 lbs 25.4 kg/m2 141/75 mm[Hg] 11/27/2018 03:20PM Established Patient 20 Height Weight BMI Blood Pressure 77 in 215 lbs 25.5 kg/m2 140/54 mm[Hg] 08/09/2018 03:20PM Established Patient 20 Height Weight BMI Blood Pressure 77 in 219 lbs 26 kg/m2 134/67 mm[Hg] 05/10/2018 03:20PM Established Patient 20 Height Weight BMI Blood Pressure 77 in 215 lbs 25.5 kg/m2 142/78 mm[Hg] 04/26/2018 03:00PM Established Patient 30 Height Weight BMI Blood Pressure 77 in 219 lbs 26 kg/m2 130/52 mm[Hg] 04/19/2018 11:20AM Established Patient 30 Height Weight BMI Blood Pressure 77 in 214 lbs 25.4 kg/m2 126/76 mm[Hg] 09/07/2017 04:20PM Established Patient 20 Height Weight BMI Blood Pressure 77 in 219 lbs 16 oz 26.1 kg/m2 121/59 mm[Hg] 12/22/2016 02:20PM Established Patient 20 Height Weight BMI Blood Pressure 77 in 222 lbs 26.3 kg/m2 140/94 mm[Hg] 04/07/2016 01:40PM Established Patient 20 Height Weight BMI Blood Pressure 77 in 218 lbs 25.9 kg/m2 108/58 mm[Hg] 09/24/2015 03:00PM Established Patient 20 Height Weight BMI Blood Pressure 77 in 215 lbs 25.5 kg/m2 94/58 mm[Hg] 06/25/2015 04:00PM Established Patient 20 Height Weight BMI Blood Pressure 77 in 220 lbs 26.1 kg/m2 112/56 mm[Hg] 04/21/2015 11:40AM Established Patient 20 Height Weight BMI Blood Pressure 77 in 209 lbs 24.8 kg/m2 142/76 mm[Hg] 03/09/2015 11:30AM Post Op Visit 30 Height Weight BMI Blood Pressure 77 in 204 lbs 24.2 kg/m2 118/26 mm[Hg] 2015 01:40PM Established Patient 20 Height Weight BMI Blood Pressure 77 in 201 lbs 23.8 kg/m2 122/66 mm[Hg] 02/17/2015 01:40PM Established Patient 20 Height Weight BMI Blood Pressure 77 in 215 lbs 25.5 kg/m2 108/52 mm[Hg] 02/02/2015 12:00PM New Patient 30 Height Weight BMI Blood Pressure 77 in 217 lbs 25.7 kg/m2 138/78 mm[Hg] 01/15/2015 04:00PM Established Patient 20 Height Weight BMI Blood Pressure 77 in 210 lbs 24.9 kg/m2 124/66 mm[Hg] 01/06/2015 02:00PM Established Patient 20 Height Weight BMI Blood Pressure 77 in 214 lbs 25.4 kg/m2 112/62 mm[Hg] 11/11/2014 01:40PM Established Patient 20 Height Weight BMI Blood Pressure 77 in 214 lbs 25.4 kg/m2 116/64 mm[Hg] 08/07/2014 04:00PM Established Patient 20 Height Weight BMI Blood Pressure 77 in 215 lbs 25.5 kg/m2 126/68 mm[Hg] 06/27/2014 03:40PM Established Patient 20 Height Weight BMI Blood Pressure 77 in 211 lbs 25 kg/m2 104/68 mm[Hg] 05/20/2014 04:20PM Established Patient 20 Height Weight BMI Blood Pressure 77 in 214 lbs 25.4 kg/m2 (1) 112/62 mm[H g] (2) 158/74 mm[Hg ] 03/20/2014 03:20PM Established Patient 20 Height Weight BMI Blood Pressure 77 in 205 lbs 24.3 kg/m2 108/62 mm[Hg] 01/30/2014 02:20PM Established Patient 20 Height Weight BMI Blood Pressure 77 in 200 lbs 23.7 kg/m2 106/56 mm[Hg] 01/21/2014 04:20PM Established Patient 20 Height Weight BMI Blood Pressure 77 in 212 lbs 25.1 kg/m2 139/75 mm[Hg] 09/19/2013 03:20PM Established Patient 20 Height Weight BMI Blood Pressure 77 in 204 lbs 24.2 kg/m2 100/56 mm[Hg] 09/06/2013 10:00AM New Patient 30 Height Weight BMI Blood Pressure 77 in 201 lbs 23.8 kg/m2 144/82 mm[Hg] 06/27/2013 01:20PM Established Patient 20 Height Weight BMI Blood Pressure 77 in 200 lbs 23.7 kg/m2 132/66 mm[Hg] 06/13/2013 09:15AM Established Patient 30 Height Weight BMI Blood Pressure 77 in 196 lbs 23.2 kg/m2 132/82 mm[Hg] 05/17/2013 02:00PM Established Patient 20 Height Weight BMI Blood Pressure 77 in 194 lbs 23 kg/m2 116/72 mm[Hg] 05/07/2013 04:00PM New Patient 40 Height Weight BMI Blood Pressure 77 in 211 lbs 25 kg/m2 144/71 mm[Hg]
--- NOTE | 2022-07-11 06:29 | ED.CHESTPAIN ---
HPI - Chest Pain General Chief Complaint: Chest Pain Stated Complaint: CP Time Seen by Provider: 07/11/22 06:20 Source: patient and EMS Mode of arrival: EMS History of Present Illness HPI narrative: 67-year-old male who is ESRD on dialysis Monday but scheduled for today who woke up at approximately 04:30 this morning complaining of 8/10 midsternal chest pain and was given 0.4 mg of nitro and then nursing staff realize that patient's blood pressure was in the 80s over 40s and dropped further. Patient denies any fever, chills, abdominal pain, but states that he is having some shortness of breath and that the chest pain itself has improved. Related Data Allergies Allergy/AdvReac Type Severity Reaction Status Date / Time sulfamethoxazole Allergy Hives Verified 07/11/22 05:49 [From Bactrim] trimethoprim [From Bactrim] Allergy Hives Verified 07/11/22 05:49 Review of Systems Review of Systems: Pertinent positives and negatives as stated in HPI 10 point review of systems is otherwise negative. PMFSH Past Medical History Source: nursing notes reviewed Physical Exam Vital Signs: Vital Signs: Last Vital Signs Temp 97.7 F 07/11/22 07:18 Pulse 119 H 07/11/22 07:18 Resp 13 07/11/22 07:18 BP 106/56 L 07/11/22 07:18 Pulse Ox 100 07/11/22 07:18 O2 Del Method 07/11/22 07:18 BMI result Body Mass Index 23.7 VITAL SIGNS: Reviewed. GENERAL: Well developed, well nourished, in no acute distress. HEAD: Normocephalic/atraumatic EYES: PERRLA, EOMI EARS: Ext canals without abnormality OROPHARYNX: no oral lesions noted, posterior pharynx clear LUNGS: Normal breath sounds. No adventitious sounds or accessory muscle use. SpO2<> CARDIOVASCULAR: IRR/IRR without noted murmurs, no JVD bilateral lower extremity 2+ pitting edema ABDOMEN: Soft, non-tender, non-distended with bowel sounds. MUSCULOSKELETAL: No tenderness, deformities, or effusions noted on gross inspection. EXTREMITIES: No cyanosis, clubbing or edema; there are noted dressed wounds to patient's bilateral lower extremities. SKIN: Inspection of the skin reveals no rashes, jaundice NEUROLOGIC: Alert and oriented x 4. Strength and sensation to light touch were grossly intact x 4. Back/Spine/Pelvis: Other: Course Course Course Narrative: 67-year-old male with history and clinical presentation suggestive of possible ACS especially taken and contacts with multiple medical comorbidities. Review of all investigations consistent with sepsis, lactic acid/blood cultures/antibiotics all ordered within allotted time as well as 500 cc of normal saline. Of note, it is important to realize that the initial hypotensive blood pressures on arrival were secondary to administration of nitro by long-term care facility staff when patient complained of chest pain. Troponins appear to be flat and patient denies any chest pain at present. Patient is noted to be anasarca and has 12x12 sacral ulcer that is completely down to the bone. Please see exam documentation for images. Patient is also received a dose of vancomycin. Reevaluation(s) Reevaluation #1: I discussed this case with Dr. García, inpatient hospitalist who accepts admission. Time: 09:00 Medications Administered Discontinued Medications Generic Name Dose Route Start Last Admin Trade Name Freq PRN Reason Stop Dose Admin Sodium Chloride 500 mls @ 500 mls/hr 07/11/22 05:45 07/11/22 05:48 Ns IV 07/11/22 06:44 500 mls/hr .Q1H YU Administration Ceftriaxone Sodium 1 gm/ 50 mls @ 100 mls/hr 07/11/22 06:56 07/11/22 08:20 Sodium Chloride IV 07/11/22 07:25 Infused ONCE ONE Infusion Insulin Human Lispro 5 unit 07/11/22 07:39 07/11/22 08:23 Insulin Lispro 100 Unit/Ml 3 Ml Vial SUBCUT 07/11/22 07:40 5 unit ONCE ONE Administration MDM - Chest Pain Lab Data Result diagrams: 07/11/22 05:40 07/11/22 05:40 Labs: Lab Results 07/11/22 07/11/22 07/11/22 Range/Units 05:40 05:40 05:40 WBC 13.0 H (4.8-10.8) X10*3/uL RBC 2.96 L (4.60-5.80) X10*6/uL Hgb 9.2 L (14.0-18.0) g/dl Hct 28.9 L (42.0-52.0) % MCV 97.6 (80.0-98.0) fL MCH 31.1 (27.0-33.0) pg MCHC 31.8 (31.0-36.0) g/dl RDW 17.5 H (11.0-16.0) % Plt Count 305 (160-400) X10*3/uL MPV 9.4 (9.4-12.4) fL Immature Gran % (Auto) 0.6 H (0.0-0.4) % Neut % (Auto) 85.2 H (45-73) % Lymph % (Auto) 6.1 L (20-40) % [place] % (Auto) 7.4 (2-11) % Eos % (Auto) 0.5 (0-4) % Baso % (Auto) 0.2 (0-2) % Lymph # (Auto) 0.8 L (1.2-4.9) X10*3/uL [place] # (Auto) 1.0 (0.1-1.2) X10*3/uL Eos # (Auto) 0.1 (0.0-0.4) X10*3/uL Baso # (Auto) 0.0 (0.0-0.2) X10*3/uL Abs Immat Gran (auto) 0.08 H (0.00-0.03) X10*3/uL Absolute Neuts (auto) 11.1 H (2.0-8.3) x10*3/uL Absolute Nucleated RBC 0.000 (0.0-0.012) X10*3/uL Nucleated RBC % (auto) 0.0 (0.0-0.2) /100WBC Sodium 125 L (135-145) mmol/L Potassium 4.3 (3.3-5.1) mmol/L Chloride 91 L (96-108) mmol/L Carbon Dioxide 23 (22-29) mmol/L Anion Gap 15 (12-20) BUN 45 H (9-16) mg/dL Creatinine 2.46 H (0.5-1.4) mg/dL Estim Creat Clear Calc 36.2 Estimated GFR 26 Random Glucose 409 H* (60-115) mg/dL Lactic Acid (0.5-2.0) mmol/L Calcium 7.2 L (8.4-10.2) mg/dL Total Bilirubin 0.3 (0.0-1.0) mg/dL Direct Bilirubin 0.3 (0.0-0.5) mg/dL AST 36 (5-37) U/L ALT 22 (0-40) U/L Alkaline Phosphatase 141 H (39-117) U/L Troponin I High Sens 19.4 (<3.5-35.0) ng/L C-Reactive Protein 7.83 H (< or = 0.50) mg/dL Total Protein 5.1 L (6.5-8.0) g/dL Albumin 1.8 L (3.5-5.0) g/dL Acetone, Qual Negative (Negative) COVID-19 (ESA) (Negative) COVID-19 Clin Com 07/11/22 07/11/22 07/11/22 Range/Units 06:35 07:58 08:17 WBC (4.8-10.8) X10*3/uL RBC (4.60-5.80) X10*6/uL Hgb (14.0-18.0) g/dl Hct (42.0-52.0) % MCV (80.0-98.0) fL MCH (27.0-33.0) pg MCHC (31.0-36.0) g/dl RDW (11.0-16.0) % Plt Count (160-400) X10*3/uL MPV (9.4-12.4) fL Immature Gran % (Auto) (0.0-0.4) % Neut % (Auto) (45-73) % Lymph % (Auto) (20-40) % [place] % (Auto) (2-11) % Eos % (Auto) (0-4) % Baso % (Auto) (0-2) % Lymph # (Auto) (1.2-4.9) X10*3/uL [place] # (Auto) (0.1-1.2) X10*3/uL Eos # (Auto) (0.0-0.4) X10*3/uL Baso # (Auto) (0.0-0.2) X10*3/uL Abs Immat Gran (auto) (0.00-0.03) X10*3/uL Absolute Neuts (auto) (2.0-8.3) x10*3/uL Absolute Nucleated RBC (0.0-0.012) X10*3/uL Nucleated RBC % (auto) (0.0-0.2) /100WBC Sodium (135-145) mmol/L Potassium (3.3-5.1) mmol/L Chloride (96-108) mmol/L Carbon Dioxide (22-29) mmol/L Anion Gap (12-20) BUN (9-16) mg/dL Creatinine (0.5-1.4) mg/dL Estim Creat Clear Calc Estimated GFR Random Glucose (60-115) mg/dL Lactic Acid 1.0 (0.5-2.0) mmol/L Calcium (8.4-10.2) mg/dL Total Bilirubin (0.0-1.0) mg/dL Direct Bilirubin (0.0-0.5) mg/dL AST (5-37) U/L ALT (0-40) U/L Alkaline Phosphatase (39-117) U/L Troponin I High Sens 15.9 (<3.5-35.0) ng/L C-Reactive Protein (< or = 0.50) mg/dL Total Protein (6.5-8.0) g/dL Albumin (3.5-5.0) g/dL Acetone, Qual (Negative) COVID-19 (ESA) Negative (Negative) COVID-19 Clin Com See Note ECG Data ECG #1: Attestation: I personally reviewed and interpreted this ECG as follows: Prior ECG tracings: not available for review Interpretation: Atrial fibrillation with RVR, HR-117, no STEMI, QRS within normal limits there are noted nonspecific ST-T abnormality Critical Care Time Critical Care Time Critical Care Time: Yes Total Critical Care Time: 30 Attestation: I personally attest to this time spent taking care of the patient. Discharge Plan Discharge Clinical Impression: Chest pain, Hyperglycemia, Sepsis, Sacral decubitus ulcer Patient Disposition: Admitted As Inpatient
[2022-07-11 06:51] LABS: Acetone, serum QL Negative (Negative)
[2022-07-11 07:27] LABS: Alanine Aminotransferase 22 U/L (0-40); Albumin Level 1.8 g/dL (3.5-5.0); Alkaline Phosphatase 141 U/L (39-117); Aspartate Amino Transferase 36 U/L (5-37); Bilirubin Direct 0.3 mg/dL (0.0-0.5); Bilirubin Total 0.3 mg/dL (0.0-1.0); Total Protein 5.1 g/dL (6.5-8.0)
[2022-07-11] MEDS: cefTRIAXone sodium 1 GM in 0.9 % Sodium Chloride 50 ML IV (07:45)
[2022-07-11 08:14] LABS: C Reactive Protein 7.83 mg/dL (< or = 0.50)
--- NOTE | 2022-07-11 08:15 | PC.NURSE ---
PTS 18G CENTRAL ACCESS RIGHT ACW USED FOR BLOOD DRAW, AFTER DR SILVESTRE REVIEWED THE LINE FOR USEAGE, FLUSHED AND BLOOD DRAWN BACK WITHOUT DIFFICULTY WET TO DRY DRESSING REAPPLIED. IV ANTIBIOTICS INFUSING IN LEFT 20G AC
[2022-07-11 08:22] LABS: Troponin-I High Sensitivity 15.9 ng/L (<3.5-35.0)
[2022-07-11] MEDS: Insulin Lispro 100 UNIT/ML 3 ML VIAL SUBCUT (08:23)
[2022-07-11 08:41] LABS: COVID-19 Test Negative (Negative); IDNOW Serial# 16C4AD1C
[2022-07-11] MEDS: Metoprolol Tartrate 5 MG/5 ML VIAL 2.5 MG IVPUSH (09:19)
[2022-07-11] MEDS: vancomycin HCL 1,000 MG in 0.9 % Sodium Chloride 250 ML 270 MG IV ×2 (09:24→22:53)
[2022-07-11 09:45] LABS: Estimated Average Glucose 169 mg/dL; Hemoglobin A1c % 7.5 %
--- NOTE | 2022-07-11 10:03 | PHA.MEDREC ---
Pharmacy Consult ? Medication Reconciliation Pharmacy has completed the medication reconciliation. Came from Alex Rinaldi with medication list. Blanca Kramer, AnthonyD
--- NOTE | 2022-07-11 12:03 | PC.NURSE ---
hospitalist diana here for admission, pt continues to have significant drainage from wound site. he reports burning from the area. hip and post low back with pitting edema
--- NOTE | 2022-07-11 12:38 | P.HPHOSP_ITS ---
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 Avina in [place] presented to ED from short-term rehab facility where patient has been residing following multiple admissions to [facility] in [facility] for ESRD and osteomyelitis related to stage IV sacral ulcer. He was transferred to the ED via EMS after developing chest pain. Patient was given dose of nitro with blood pressure of 111/57 with resolution of his chest pain with subsequent hypotensive episodes down to 65/40 with lightheadedness. There is no associated shortness of breath, palpitations, recurrence of chest pain. There is no syncopal episode. On arrival, blood pressure 94/57, 116/65. He was tachycardic on arrival to 116 and found to be in AFib with RVR on EKG. Given 2.5 mg Lo pressor with improvement in the heart rate to high 80s on exam. He is afebrile without hypoxia. White blood cell count 13.0, this has been chronically elevated for for the last 2 months with highest recorded WBC of 23.4 in our system. No bandemia. Lactic acid 1.0. Creatinine 2.46, BUN 45, consistent with baseline. Sodium 125, baseline around 127, chloride 91, potassium 4.3, CO2 23. Glucose 409. CRP 7.83. Total protein 5.1, albumin 1.8. Given empiric doses of ceftriaxone and vancomycin. Patient to be admitted for stage IV decubitus ulcer/osteomyelitis meeting sepsis criteria and ESRD. Review of Systems Review of Systems: General: No fevers, malaise, unintentional weight loss HEENT: No blurred vision, diplopia. No sore throat, nasal congestion, rhinorrhea, sinus pain, ear pain Cardiovascular: No chest pain, palpitations, or leg edema Respiratory: No shortness of breath, wheezing, cough GI: No abdominal pain, nausea, vomiting, diarrhea, constipation, melena, hematochezia : No dysuria, hematuria, increased urinary frequency, decreased urinary output MSK: No myalgia. +back pain Neuro: No headaches, weakness, paresthesias Skin: No rashes. +decubitus ulcer [facility] Medical History CAD (coronary artery disease) Chronic systolic heart failure Diabetic nephropathy Discoid lupus erythematosus End stage renal disease Essential tremor HLD (hyperlipidemia) Osteomyelitis of sacrum Protein deficiency Stage IV pressure ulcer of sacral region Type 2 diabetes mellitus with hyperglycemia Family History Sister Type 1 diabetes Father Type 1 diabetes Father CAD (coronary artery disease) Mother Stroke Ovarian cancer Surgical History S/P CABG (coronary artery bypass graft) Social History Housing: Other Housing Other:: Short term rehab Alcohol intake: never Patient Tobacco Use Status: Former Tobacco user Use of substances other than those prescribed or required for medical reasons: No Currently Displaying Signs/Symptoms of Drug Intoxication Withdrawal: No Have you been hit, kicked, punched, or otherwise hurt by someone within the past year? If so, by whom?: No Do you feel safe in your current relationship?: No Current Relationship Is there a partner from a previous relationship who is making you feel unsafe now?: No Are you made to feel afraid or neglected: No Advance Directives: No Advance Directives Information Provided: Yes Do you have thoughts of harming others: None Do you have a plan to hurt others: No Plan Recently lost weight without trying: No How much weight loss: Not applicable Eating poorly because of decreased appetite: No Nutrition screen score: 0 Nutrition Risks: No Nutritional Risk Poor oral hygiene: No Meds Allergies Allergy/AdvReac Type Severity Reaction Status Date / Time sulfamethoxazole Allergy Hives Verified 07/11/22 05:49 [From Bactrim] trimethoprim [From Bactrim] Allergy Hives Verified 07/11/22 05:49 Active Medications: Current Medications Acetaminophen (Acetaminophen 325 Mg Tablet) 650 mg PO Q6H PRN PRN Reason: Pain, Mild (Pain Scale 1-3) Cefepime HCl 2 gm/ Sodium (Chloride) 50 mls @ 100 mls/hr IV Q8H [facility] Ondansetron HCl (Ondansetron Hcl 4 Mg/2 Ml Vial) 4 mg IVPUSH Q8H PRN PRN Reason: Nausea and Vomiting Pharmacy Consult (Consult Rx Perform Med Rec) 1 each MISCELLANE ONCE PRN PRN Reason: Consult order Pharmacy Consult (Consult Rx Vancomycin Dosing) 1 each MISCELLANE DAILY PRN PRN Reason: Consult order Pharmacy Consult (Consult Rx Vancomycin Dosing) 1 each MISCELLANE DAILY PRN PRN Reason: Consult order Sodium Chloride (0.9 % Sodium Chloride Flush 3 Ml Syringe) 3 ml IVFLUSH [facility] Home Medications Medication Instructions Recorded Confirmed Last Taken Type Lactobacillus acidophilus 1 cap PO DAILY 07/11/22 07/11/22 Unknown History (Acidophilus capsule) apixaban 5 mg tablet (Eliquis) 1 tab PO BID 07/11/22 07/11/22 Unknown History ascorbic acid (vitamin C) 500 mg 500 mg PO BID 07/11/22 07/11/22 Unknown History tablet aspirin 81 mg tablet,delayed 81 mg PO DAILY 07/11/22 07/11/22 Unknown History release atorvastatin 80 mg tablet 80 mg PO BEDTIME 07/11/22 07/11/22 Unknown History calcium carbonate-vitamin D3 600 1 tab PO DAILY 07/11/22 07/11/22 Unknown History mg-125 unit tablet cholestyramine (with sugar) 4 gram 4 g PO BIDWM 07/11/22 07/11/22 Unknown History oral powder collagenase clostridium histo. 250 1 appl topical BID 07/11/22 07/11/22 Unknown History unit/gram topical ointment (Santyl) diphenhydramine HCl 25 mg capsule 25 mg PO TID PRN Itching 07/11/22 07/11/22 Unknown History (Benadryl) docusate sodium 100 mg capsule 100 mg PO DAILY 07/11/22 07/11/22 Unknown History epoetin ciara 10,000 unit/mL 10,000 unit IV TUTHSA 07/11/22 07/11/22 Unknown History injection solution ezetimibe 10 mg tablet 10 mg PO DAILY 07/11/22 07/11/22 Unknown History fentanyl 12 mcg/hr transdermal 1 patch transdermal Q72H 07/11/22 07/11/22 Unknown History patch fluticasone propionate 50 1 spray intranasal DAILY 07/11/22 07/11/22 Unknown History mcg/actuation nasal spray,suspension hydromorphone 2 mg tablet 2 mg PO Q12H PRN Pain 07/11/22 07/11/22 Unknown History insulin glargine 100 unit/mL 25 unit subcut DAILY 07/11/22 07/11/22 Unknown History subcutaneous solution insulin lispro 100 unit/mL 1 sliding scale dose subcut QIDACHS 07/11/22 07/11/22 Unknown History subcutaneous pen melatonin 3 mg tablet 3 mg PO BEDTIME 07/11/22 07/11/22 Unknown History metoprolol succinate 25 mg 25 mg PO DAILY 07/11/22 07/11/22 Unknown History tablet,extended release 24 hr midodrine 10 mg tablet 10 mg PO TUTHSA PRN LOW BLOOD 07/11/22 07/11/22 Unknown History PRESSURE midodrine 5 mg tablet 5 mg PO TID@0900,1200,1800 07/11/22 07/11/22 Unknown History midodrine 5 mg tablet 5 mg PO TUTHSA@0900 07/11/22 07/11/22 Unknown History nitroglycerin 0.4 mg sublingual 0.4 mg sublingual Q5M PRN Chest 07/11/22 07/11/22 Unknown History tablet (Nitrostat) Pain oxycodone 5 mg tablet 5 mg PO Q6H PRN Pain 07/11/22 07/11/22 Unknown History primidone 50 mg tablet 50 mg PO BEDTIME 07/11/22 07/11/22 Unknown History sennosides 8.6 mg tablet 17.2 mg PO DAILY 07/11/22 07/11/22 Unknown History vitamin B complex and vitamin C 1 cap PO DAILY 07/11/22 07/11/22 Unknown History no.20-folic acid 1 mg capsule Physical Exam Vital Signs and Narrative: Vital Signs: Last Vital Signs Temp 97.7 F 07/11/22 07:18 Pulse 101 H 07/11/22 10:43 Resp 18 07/11/22 10:43 BP 116/65 07/11/22 10:43 Pulse Ox 100 07/11/22 10:43 O2 Del Method 07/11/22 10:43 BMI result Body Mass Index 23.7 Constitutional - Awake and Alert, No apparent distress Eyes - PERRLA, EOMI Cardiovascular - S1S2, RRR, No edema Respiratory - Normal lung expansion, Normal respiratory effort, No respiratory distress, CTA bilaterally Gastrointestinal - NT / ND; +BS; No rebound or guarding - No CVA tenderness Extremities - no calf tenderness bilaterally, no swelling Skin - Warm/Dry. 12cm X 12cm dry decubitus ulcer with exposure of fat, muscle, and done with +granulation tissue, no wet purulence. See photo Neurological - Alert & oriented x3, CN II-XII in tact, 4/5 strength BUE and BLE Psychological - Appropriate affect Results Labs CBC and Chem 7: 07/12/22 06:16 07/12/22 06:16 Labs: Laboratory Results - last 24 hr 07/11/22 07/11/22 07/11/22 05:40 05:40 05:40 MCV 97.6 MCH 31.1 MCHC 31.8 RDW 17.5 H Plt Count 305 MPV 9.4 Immature Gran % (Auto) 0.6 H Neut % (Auto) 85.2 H Lymph % (Auto) 6.1 L [place] % (Auto) 7.4 Eos % (Auto) 0.5 Baso % (Auto) 0.2 Lymph # (Auto) 0.8 L [place] # (Auto) 1.0 Eos # (Auto) 0.1 Baso # (Auto) 0.0 Abs Immat Gran (auto) 0.08 H Absolute Neuts (auto) 11.1 H Absolute Nucleated RBC 0.000 Nucleated RBC % (auto) 0.0 Anion Gap 15 Estim Creat Clear Calc 36.2 Estimated GFR 26 Random Glucose 409 H* Estimat Average Glucose Hemoglobin A1c % Lactic Acid Calcium 7.2 L Total Bilirubin 0.3 Direct Bilirubin 0.3 AST 36 ALT 22 Alkaline Phosphatase 141 H Troponin I High Sens 19.4 C-Reactive Protein 7.83 H Total Protein 5.1 L Albumin 1.8 L Acetone, Qual Negative COVID-19 (ESA) COVID-19 Clin Com 07/11/22 07/11/22 07/11/22 05:40 06:35 07:58 MCV MCH MCHC RDW Plt Count MPV Immature Gran % (Auto) Neut % (Auto) Lymph % (Auto) [place] % (Auto) Eos % (Auto) Baso % (Auto) Lymph # (Auto) [place] # (Auto) Eos # (Auto) Baso # (Auto) Abs Immat Gran (auto) Absolute Neuts (auto) Absolute Nucleated RBC Nucleated RBC % (auto) Anion Gap Estim Creat Clear Calc Estimated GFR Random Glucose Estimat Average Glucose 169 Hemoglobin A1c % 7.5 Lactic Acid 1.0 Calcium Total Bilirubin Direct Bilirubin AST ALT Alkaline Phosphatase Troponin I High Sens 15.9 C-Reactive Protein Total Protein Albumin Acetone, Qual COVID-19 (ESA) COVID-19 Clin Com 07/11/22 08:17 MCV MCH MCHC RDW Plt Count MPV Immature Gran % (Auto) Neut % (Auto) Lymph % (Auto) [place] % (Auto) Eos % (Auto) Baso % (Auto) Lymph # (Auto) [place] # (Auto) Eos # (Auto) Baso # (Auto) Abs Immat Gran (auto) Absolute Neuts (auto) Absolute Nucleated RBC Nucleated RBC % (auto) Anion Gap Estim Creat Clear Calc Estimated GFR Random Glucose Estimat Average Glucose Hemoglobin A1c % Lactic Acid Calcium Total Bilirubin Direct Bilirubin AST ALT Alkaline Phosphatase Troponin I High Sens C-Reactive Protein Total Protein Albumin Acetone, Qual COVID-19 (ESA) Negative COVID-19 Clin Com See Note Imaging Radiologist's Impressions: Impressions Chest X-Ray 07/11/22 06:05 IMPRESSION: 1. No acute pulmonary disease. 2. Support lines as above. 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 Avina in ID admitted for chest pain found to be septic with stage IV decubitus ulcer of the sacrum with osteomyelitis. #Probable sepsis- secondary to stage IV decubitus ulcer of the sacrum with osteomyelitis -leukocytosis has been chronic over the last few months secondary to osteomyelitis but remains elevated despite completing IV antibiotics at 13.0. Patient also tachycardic to 116 likely secondary to sepsis as well as atrial fibrillation -IV vancomycin and cefepime -ID consulted -follow blood cultures and CBC -admit to telemetry # osteomyelitis of the sacrum secondary to stage IV decubitus ulcer -completed several weeks IV abx per patient. [facility] DC Summary and ID notes requested -ID notes requested from [facility]. Most recent discahrge summary requested from [facility] -Will likely require additional abx. ID input appreciate -IV vanco and cefepime for now -Repeat imaging likely not required -Pain management with pain scale. Continue fentanyl patch #Stage IV decubitus ulcer sacrum- present on arrival -general surgery consulted for possible debridement the wound does look clean at this time with some granulation tissue -reposition often # ESRD secondary to diabetic nephropathy -nephrology consult placed -will need HD today per outpt provider, Dr. Saab -Change epoetin and midrodrine schedule to match dialysis schedule while admitted per nephrology # anasarca-secondary to ESRD -No ton home diuretics -20mg IV lasix BID -Strict I&O, continue barreto for fluid management #Malnutrition with protein deficiency -total protein 5.1, albumin 1.8 -nutrition consult -add Ensure b.i.d. # chest pain-resolved following nitroglycerin administration while at [facility] -troponins flat -EKG showing AFib with RVR, no FRANCINE # hypotension-resolved -secondary to nitroglycerin administration, not septic shock -hold metoprolol # paroxysmal atrial fibrillation -initially RVR, rate now controlled following 2.5 mg push Lopressor in ED -BP soft, hold metoprolol -continue Eliquis for anticoagulation -admit to telemetry # coronary artery disease-chest pain resolved -continue ASA, Eliquis, atorvastatin. Hold beta-willow due to soft blood pressure # insulin-dependent type 2 diabetes with hyperglycemia -POC glucose -diabetic diet -Humalog on sliding scale -dose adjusted Lantus 19 units daily #Chronic systolic heart failure -compensated -continue home meds #discoid lupus erythematous -continue home meds # generalized weakness -PT/OT eval DVT prophylaxis-continue Eliquis Full code Patient requires inpatient stay of at least 2 midnights due to stage IV decubitus ulcer with sepsis requiring IV antibiotics an expert consultation given recent treatment for osteomyelitis as well as ESRD requiring HD now with anasarca requiring close monitoring of fluid status and renal function as well as IV diuresis Quality Stroke Does the patient have a stroke diagnosis?: No VTE Prior VTE?: No VTE Risk Level:: Medical - moderate - high VTE Device Contraindication: Treatment Not Indicated VTE Drug Contraindication: N/A - Med Ordered
[2022-07-11] MEDS: oxyCODONE HCl Immed Release 5 MG TABLET PO (13:22)
--- NOTE | 2022-07-11 13:35 | PM.CNGS ---
History of Present Illness Consult details Consult date: 07/11/22 Narrative: 67-year-old male with end-stage renal disease, on hemodialysis, was brought to the ER today because of chest pain. He has had this large sacral decubitus ulcer for about 3-4 months now. This has been worsening because of rapid decline in his health since March,. He was diagnosed of end-stage renal disease for has started on hemodialysis since then. He had been admitted to [facility] multiple times because of his multiple medical problems including sacral decubitus ulcer. He actually was discharged from [facility] last week. He was diagnosed to have osteomyelitis of his sacrum and has been on IV antibiotics. He had complained of chest pain early today and was noted to have low blood pressures while in [facility] for rehab. He describes pain on his sacrum. Currently he feels better and denies pain here in the ER. I have been consulted because of his large sacral decubitus ulcer. According to sister Teresa, he has been bed-bound because of deconditioning with this multiple medical problems. He hd a diverting colotomy done about 6 weeks ago in [facility]. He has CHF as well from coronary artery disease. Review of Systems Constitutional: Constitutional: Denies chills and Denies fever(s) Cardiovascular: Cardiovascular: Reports chest pain, Denies dyspnea and Denies dyspnea on exertion Respiratory: Respiratory: Denies cough, Denies dyspnea and Denies dyspnea on exertion Gastrointestinal: Gastrointestinal: Denies hematochezia and Denies change in bowel habits Genitourinary: Genitourinary: Denies hematuria and Denies difficulty urinating Musculoskeletal: Musculoskeletal: Denies back pain and Denies limited range of motion Neurologic: Denies focal weakness and Denies convulsions Psychiatric: Psychiatric: Denies depression and Denies mood swings [facility] Past Medical History Medical History CAD (coronary artery disease) Chronic systolic heart failure Diabetic nephropathy Discoid lupus erythematosus End stage renal disease Essential tremor HLD (hyperlipidemia) Osteomyelitis of sacrum Protein deficiency Stage IV pressure ulcer of sacral region Type 2 diabetes mellitus with hyperglycemia Family History Family History Sister Type 1 diabetes Father Type 1 diabetes Father CAD (coronary artery disease) Mother Stroke Ovarian cancer Surgical History Surgical History S/P CABG (coronary artery bypass graft) Social History Social History Housing: Other Housing Other:: Short term rehab Alcohol intake: never Patient Tobacco Use Status: Former Tobacco user Use of substances other than those prescribed or required for medical reasons: No Currently Displaying Signs/Symptoms of Drug Intoxication Withdrawal: No Have you been hit, kicked, punched, or otherwise hurt by someone within the past year? If so, by whom?: No Do you feel safe in your current relationship?: No Current Relationship Is there a partner from a previous relationship who is making you feel unsafe now?: No Are you made to feel afraid or neglected: No Advance Directives: No Advance Directives Information Provided: Yes Do you have thoughts of harming others: None Do you have a plan to hurt others: No Plan Recently lost weight without trying: No How much weight loss: Not applicable Eating poorly because of decreased appetite: No Nutrition screen score: 0 Nutrition Risks: No Nutritional Risk Poor oral hygiene: No service: No Current occupational status: retired [employer] Allergies Allergy/AdvReac Type Severity Reaction Status Date / Time sulfamethoxazole Allergy Hives Verified 07/11/22 05:49 [From Bactrim] trimethoprim [From Bactrim] Allergy Hives Verified 07/11/22 05:49 Active Medications: Current Medications Acetaminophen (Acetaminophen 325 Mg Tablet) 650 mg PO Q6H PRN PRN Reason: Pain, Mild (Pain Scale 1-3) Apixaban (Apixaban 5 Mg Tablet) 5 mg PO BID YU Ascorbic Acid (Ascorbic Acid 500 Mg Tablet) 500 mg PO BID YU Aspirin (Aspirin Enteric Coated 81 Mg Tablet.Dr) 81 mg PO DAILY YU Atorvastatin Calcium (Atorvastatin Calcium 80 Mg Tablet) 80 mg PO BEDTIME YU Calcium Carbonate/Cholecalciferol (Calcium + Vitamin D 250 Mg Tablet) 500 mg PO DAILY [facility] Cholestyramine Resin (Cholestyramine (With Sugar) 4 Gm Powd.Pack) 4 gm PO BIDWM YU Diphenhydramine HCl (Diphenhydramine Hcl 25 Mg Capsule) 25 mg PO TID PRN PRN Reason: Itching Docusate Sodium (Docusate Sodium 100 Mg Capsule) 100 mg PO DAILY [facility] Ezetimibe (Ezetimibe 10 Mg Tablet) 10 mg PO DAILY [facility] Epoetin Ciara (Epoetin Ciara 10,000 Unit/Ml Vial) 10,000 unit SUBCUT TuThSa@0900 [facility] Fentanyl (Fentanyl 12 Mcg Patch.Td72) 12 mcg TRANSDERMA Q72H [facility] Fluticasone Propionate (Fluticasone Propionate Nasal 16 Gm Premium) 1 spray NOSTRIL-B DAILY [facility] Furosemide (Furosemide 20 Mg/2 Ml Vial) 20 mg IVPUSH BID@0900,1800 [facility]; Protocol Hydromorphone HCl (Hydromorphone Hcl 2 Mg Tablet) 2 mg PO Q12H PRN PRN Reason: Pain, Severe (Pain Scale 7-10) Cefepime HCl 2 gm/ Sodium (Chloride) 50 mls @ 100 mls/hr IV Q8H [facility] Insulin Glargine (Insulin Glargine,Hum.Rec.Anlog 100 Unit/Ml 10 Ml Vial) 19 unit SUBCUT DAILY [facility] Melatonin (Melatonin 3 Mg Tablet) 3 mg PO BEDTIME [facility] Midodrine (Midodrine Hcl 5 Mg Tablet) 5 mg PO TID@0900,1200,1800 [facility] Midodrine (Midodrine Hcl 5 Mg Tablet) 5 mg PO TUTHSA@0900 [facility] Midodrine (Midodrine Hcl 5 Mg Tablet) 10 mg PO TuThSa PRN PRN Reason: LOW BLOOD PRESSURE Midodrine (Midodrine Hcl 5 Mg Tablet) 5 mg PO MoWe@0900 [facility] Stop: 07/13/22 09:01 Multivitamins/Vitamin C (Multivitamin Tablet) 1 tab PO DAILY [facility] Nitroglycerin (Nitroglycerin 0.4 Mg Tab.Subl) 0.4 mg SUBLINGUAL Q5M PRN PRN Reason: Chest Pain Ondansetron HCl (Ondansetron Hcl 4 Mg/2 Ml Vial) 4 mg IVPUSH Q8H PRN PRN Reason: Nausea and Vomiting Oxycodone HCl (Oxycodone Hcl Immed Release 5 Mg Tablet) 5 mg PO Q6H PRN PRN Reason: Pain, Moderate (Pain Scale 4-6 Last Admin: 07/11/22 13:22 Dose: 5 mg Pharmacy Consult (Consult Rx Perform Med Rec) 1 each MISCELLANE ONCE PRN PRN Reason: Consult order Pharmacy Consult (Consult Rx Vancomycin Dosing) 1 each MISCELLANE DAILY PRN PRN Reason: Consult order Pharmacy Consult (Consult Rx Vancomycin Dosing) 1 each MISCELLANE DAILY PRN PRN Reason: Consult order Primidone (Primidone 50 Mg Tablet) 50 mg PO BEDTIME YU Senna (Sennosides 8.6 Mg Tablet) 17.2 mg PO DAILY YU Sodium Chloride (0.9 % Sodium Chloride Flush 3 Ml Syringe) 3 ml IVFLUSH QSHIFT [facility] Home Medications Medication Instructions Recorded Confirmed Last Taken Type Lactobacillus acidophilus 1 cap PO DAILY 07/11/22 07/11/22 Unknown History (Acidophilus capsule) apixaban 5 mg tablet (Eliquis) 1 tab PO BID 07/11/22 07/11/22 Unknown History ascorbic acid (vitamin C) 500 mg 500 mg PO BID 07/11/22 07/11/22 Unknown History tablet aspirin 81 mg tablet,delayed 81 mg PO DAILY 07/11/22 07/11/22 Unknown History release atorvastatin 80 mg tablet 80 mg PO BEDTIME 07/11/22 07/11/22 Unknown History calcium carbonate-vitamin D3 600 1 tab PO DAILY 07/11/22 07/11/22 Unknown History mg-125 unit tablet cholestyramine (with sugar) 4 gram 4 g PO BIDWM 07/11/22 07/11/22 Unknown History oral powder collagenase clostridium histo. 250 1 appl topical BID 07/11/22 07/11/22 Unknown History unit/gram topical ointment (Santyl) diphenhydramine HCl 25 mg capsule 25 mg PO TID PRN Itching 07/11/22 07/11/22 Unknown History (Benadryl) docusate sodium 100 mg capsule 100 mg PO DAILY 07/11/22 07/11/22 Unknown History epoetin ciara 10,000 unit/mL 10,000 unit IV TUTHSA 07/11/22 07/11/22 Unknown History injection solution ezetimibe 10 mg tablet 10 mg PO DAILY 07/11/22 07/11/22 Unknown History fentanyl 12 mcg/hr transdermal 1 patch transdermal Q72H 07/11/22 07/11/22 Unknown History patch fluticasone propionate 50 1 spray intranasal DAILY 07/11/22 07/11/22 Unknown History mcg/actuation nasal spray,suspension hydromorphone 2 mg tablet 2 mg PO Q12H PRN Pain 07/11/22 07/11/22 Unknown History insulin glargine 100 unit/mL 25 unit subcut DAILY 07/11/22 07/11/22 Unknown History subcutaneous solution insulin lispro 100 unit/mL 1 sliding scale dose subcut QIDACHS 07/11/22 07/11/22 Unknown History subcutaneous pen melatonin 3 mg tablet 3 mg PO BEDTIME 07/11/22 07/11/22 Unknown History metoprolol succinate 25 mg 25 mg PO DAILY 07/11/22 07/11/22 Unknown History tablet,extended release 24 hr midodrine 10 mg tablet 10 mg PO TUTHSA PRN LOW BLOOD 07/11/22 07/11/22 Unknown History PRESSURE midodrine 5 mg tablet 5 mg PO TID@0900,1200,1800 07/11/22 07/11/22 Unknown History midodrine 5 mg tablet 5 mg PO TUTHSA@0900 07/11/22 07/11/22 Unknown History nitroglycerin 0.4 mg sublingual 0.4 mg sublingual Q5M PRN Chest 07/11/22 07/11/22 Unknown History tablet (Nitrostat) Pain oxycodone 5 mg tablet 5 mg PO Q6H PRN Pain 07/11/22 07/11/22 Unknown History primidone 50 mg tablet 50 mg PO BEDTIME 07/11/22 07/11/22 Unknown History sennosides 8.6 mg tablet 17.2 mg PO DAILY 07/11/22 07/11/22 Unknown History vitamin B complex and vitamin C 1 cap PO DAILY 07/11/22 07/11/22 Unknown History no.20-folic acid 1 mg capsule Physical Exam Vital Signs: Vital Signs: Last Vital Signs Temp 97.7 F 07/11/22 07:18 Pulse 101 H 07/11/22 10:43 Resp 18 07/11/22 10:43 BP 116/65 07/11/22 10:43 Pulse Ox 100 07/11/22 10:43 O2 Del Method 07/11/22 10:43 BMI result Body Mass Index 23.7 Const: Other: frail looking, bed-bound, unable to move in bed conversant General: no acute distress Orientation/consciousness: patient oriented x3 Neck: Neck: Yes no lymphadenopathy Resp: Effort & Inspection: normal respiratory effort Auscultation: clear to auscultation bilaterally Cardio: Rate: tachycardic Rhythm: regular rhythm GI: Other: colostomy on left, edematous but viable Palpation (GI): Soft to palpation, nontender and no guarding Back/Spine/Pelvis: Other: large sacral decubitus ulcer, about 15 cm in widest dimension, with undermining, good granulation tissue although the sacrococcygeal bone seems to be exposed, no pus Neuro: General: patient oriented x3 Results Labs Result diagrams: 07/15/22 05:29 07/15/22 05:29 Labs: Abnormal lab results 07/11/22 07/11/22 Range/Units 05:40 05:40 WBC 13.0 H (4.8-10.8) X10*3/uL RBC 2.96 L (4.60-5.80) X10*6/uL Hgb 9.2 L (14.0-18.0) g/dl Hct 28.9 L (42.0-52.0) % RDW 17.5 H (11.0-16.0) % Immature Gran % (Auto) 0.6 H (0.0-0.4) % Neut % (Auto) 85.2 H (45-73) % Lymph % (Auto) 6.1 L (20-40) % Lymph # (Auto) 0.8 L (1.2-4.9) X10*3/uL Abs Immat Gran (auto) 0.08 H (0.00-0.03) X10*3/uL Absolute Neuts (auto) 11.1 H (2.0-8.3) x10*3/uL Sodium 125 L (135-145) mmol/L Chloride 91 L (96-108) mmol/L BUN 45 H (9-16) mg/dL Creatinine 2.46 H (0.5-1.4) mg/dL Random Glucose 409 H* (60-115) mg/dL Calcium 7.2 L (8.4-10.2) mg/dL Alkaline Phosphatase 141 H (39-117) U/L C-Reactive Protein 7.83 H (< or = 0.50) mg/dL Total Protein 5.1 L (6.5-8.0) g/dL Albumin 1.8 L (3.5-5.0) g/dL Short CBC 07/11/22 Range/Units 05:40 WBC 13.0 H (4.8-10.8) X10*3/uL Hgb 9.2 L (14.0-18.0) g/dl Hct 28.9 L (42.0-52.0) % Plt Count 305 (160-400) X10*3/uL BMP 07/11/22 05:40 Sodium 125 L Potassium 4.3 Chloride 91 L Carbon Dioxide 23 BUN 45 H Creatinine 2.46 H Calcium 7.2 L Liver Function 07/11/22 Range/Units 05:40 Total Bilirubin 0.3 (0.0-1.0) mg/dL Direct Bilirubin 0.3 (0.0-0.5) mg/dL AST 36 (5-37) U/L ALT 22 (0-40) U/L Alkaline Phosphatase 141 H (39-117) U/L Albumin 1.8 L (3.5-5.0) g/dL All other labs normal. Imaging Additional studies: Laboratory Results WBC 13.0 X10*3/uL (4.8-10.8) H 07/11/22 05:40 RBC 2.96 X10*6/uL (4.60-5.80) L 07/11/22 05:40 Hgb 9.2 g/dl (14.0-18.0) L 07/11/22 05:40 Hct 28.9 % (42.0-52.0) L 07/11/22 05:40 MCV 97.6 fL (80.0-98.0) 07/11/22 05:40 MCH 31.1 pg (27.0-33.0) 07/11/22 05:40 MCHC 31.8 g/dl (31.0-36.0) 07/11/22 05:40 RDW 17.5 % (11.0-16.0) H 07/11/22 05:40 Plt Count 305 X10*3/uL (160-400) 07/11/22 05:40 MPV 9.4 fL (9.4-12.4) 07/11/22 05:40 Immature Gran % (Auto) 0.6 % (0.0-0.4) H 07/11/22 05:40 Neut % (Auto) 85.2 % (45-73) H 07/11/22 05:40 Lymph % (Auto) 6.1 % (20-40) L 07/11/22 05:40 Meagher % (Auto) 7.4 % (2-11) 07/11/22 05:40 Eos % (Auto) 0.5 % (0-4) 07/11/22 05:40 Baso % (Auto) 0.2 % (0-2) 07/11/22 05:40 Lymph # (Auto) 0.8 X10*3/uL (1.2-4.9) L 07/11/22 05:40 Meagher # (Auto) 1.0 X10*3/uL (0.1-1.2) 07/11/22 05:40 Eos # (Auto) 0.1 X10*3/uL (0.0-0.4) 07/11/22 05:40 Baso # (Auto) 0.0 X10*3/uL (0.0-0.2) 07/11/22 05:40 Abs Immat Gran (auto) 0.08 X10*3/uL (0.00-0.03) H 07/11/22 05:40 Absolute Neuts (auto) 11.1 x10*3/uL (2.0-8.3) H 07/11/22 05:40 Absolute Nucleated RBC 0.000 X10*3/uL (0.0-0.012) 07/11/22 05:40 Nucleated RBC % (auto) 0.0 /100WBC (0.0-0.2) 07/11/22 05:40 Sodium 125 mmol/L (135-145) L 07/11/22 05:40 Potassium 4.3 mmol/L (3.3-5.1) 07/11/22 05:40 Chloride 91 mmol/L (96-108) L 07/11/22 05:40 Carbon Dioxide 23 mmol/L (22-29) 07/11/22 05:40 Anion Gap 15 (12-20) 07/11/22 05:40 BUN 45 mg/dL (9-16) H 07/11/22 05:40 Creatinine 2.46 mg/dL (0.5-1.4) H 07/11/22 05:40 Estim Creat Clear Calc 36.2 07/11/22 05:40 Estimated GFR 26 07/11/22 05:40 Random Glucose 409 mg/dL (60-115) H* 07/11/22 05:40 Estimat Average Glucose 169 mg/dL 07/11/22 05:40 Hemoglobin A1c % 7.5 % 07/11/22 05:40 Lactic Acid 1.0 mmol/L (0.5-2.0) 07/11/22 06:35 Calcium 7.2 mg/dL (8.4-10.2) L 07/11/22 05:40 Total Bilirubin 0.3 mg/dL (0.0-1.0) 07/11/22 05:40 Direct Bilirubin 0.3 mg/dL (0.0-0.5) 07/11/22 05:40 AST 36 U/L (5-37) 07/11/22 05:40 ALT 22 U/L (0-40) 07/11/22 05:40 Alkaline Phosphatase 141 U/L (39-117) H 07/11/22 05:40 Troponin I High Sens 15.9 ng/L (<3.5-35.0) 07/11/22 07:58 C-Reactive Protein 7.83 mg/dL (< or = 0.50) H 07/11/22 05:40 Total Protein 5.1 g/dL (6.5-8.0) L 07/11/22 05:40 Albumin 1.8 g/dL (3.5-5.0) L 07/11/22 05:40 Acetone, Qual Negative (Negative) 07/11/22 05:40 COVID-19 (ESA) Negative (Negative) 07/11/22 08:17 COVID-19 Clin Com See Note 07/11/22 08:17 Impressions Chest X-Ray 07/11/22 06:05 IMPRESSION: 1. No acute pulmonary disease. 2. Support lines as above. Assessment and Plan (1) Sacral decubitus ulcer: Status: Acute He has a large sacral decubitus ulcer as described above, extending all the way to the bone. This was therefore a stage IV ulcer. The wound base is actually granulating well and generally clean. There is no pus or any ongoing gangrene. He does have osteomyelitis on a previous evaluation [facility]. He is being admitted here for sepsis. I would defer to the ID service with regards to choice of antibiotics. I have changed his dressings and applied wet to dry packing for now. He should have bed sore precautions with frequent changes of his position [id number] every 2 hours. he currently appears comfortable and has stable vital signs. We will follow along while he is in the hospital. His sister Teresa was with him during the evaluation. Procedures Date of Service Date of Service: 07/12/22
--- NOTE | 2022-07-11 13:47 | P.CONNP_ITS ---
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 Avina in [place] presented to ED from short-term rehab facility where patient has been residing following multiple admissions to [facility] in [facility] for ESRD and osteomyelitis related to stage IV sacral ulcer.? He was transferred to the ED via EMS after developing chest pain.? Patient was given dose of nitro with blood pressure of 111/57 with resolution of his chest pain with subsequent hypotensive episodes down to 65/40 with lightheadedness.? There is no associated shortness of breath, palpitations, recurrence of chest pain.? There is no syncopal episode.? On arrival, blood pressure 94/57, 116/65.? He was tachycardic on arrival to 116 and found to be in AFib with RVR on EKG.? Given 2.5 mg Lopressor with improvement in the heart rate to high 80s on exam.? He is afebrile without hypoxia.? White blood cell count 13.0, this has been chronically elevated for for the last 2 months with highest recorded WBC of 23.4 in our system.? No bandemia.? Lactic acid 1.0.? Creatinine 2.46, BUN 45, consistent with baseline.? Sodium 125, baseline around 127, chloride 91, potassium 4.3, CO2 23.? Glucose 409.? CRP 7.83.? Total protein 5.1, albumin 1.8.? Given empiric doses of ceftriaxone and vancomycin.? Patient to be admitted for stage IV decubitus ulcer/osteomyelitis meeting sepsis criteria and ESRD. Review of Systems Review of Systems . No headache. No fever. No nausea vomiting. No urinary symptoms. All other Systems were reviewed. [facility] Past Medical History Medical History CAD (coronary artery disease) Chronic systolic heart failure Diabetic nephropathy Discoid lupus erythematosus End stage renal disease Essential tremor HLD (hyperlipidemia) Osteomyelitis of sacrum Protein deficiency Stage IV pressure ulcer of sacral region Type 2 diabetes mellitus with hyperglycemia Family History Family History Sister Type 1 diabetes Father Type 1 diabetes Father CAD (coronary artery disease) Mother Stroke Ovarian cancer Family history: reviewed and not pertinent Surgical History Surgical History S/P CABG (coronary artery bypass graft) Social History Social History Housing: Other Housing Other:: Short term rehab Alcohol intake: never Patient Tobacco Use Status: Former Tobacco user Use of substances other than those prescribed or required for medical reasons: No Currently Displaying Signs/Symptoms of Drug Intoxication Withdrawal: No Have you been hit, kicked, punched, or otherwise hurt by someone within the past year? If so, by whom?: No Do you feel safe in your current relationship?: No Current Relationship Is there a partner from a previous relationship who is making you feel unsafe now?: No Are you made to feel afraid or neglected: No Advance Directives: No Advance Directives Information Provided: Yes Do you have thoughts of harming others: None Do you have a plan to hurt others: No Plan Recently lost weight without trying: No How much weight loss: Not applicable Eating poorly because of decreased appetite: No Nutrition screen score: 0 Nutrition Risks: No Nutritional Risk Poor oral hygiene: No Meds Allergies Allergy/AdvReac Type Severity Reaction Status Date / Time sulfamethoxazole Allergy Hives Verified 07/11/22 05:49 [From Bactrim] trimethoprim [From Bactrim] Allergy Hives Verified 07/11/22 05:49 Active Medications: Current Medications Acetaminophen (Acetaminophen 325 Mg Tablet) 650 mg PO Q6H PRN PRN Reason: Pain, Mild (Pain Scale 1-3) Apixaban (Apixaban 5 Mg Tablet) 5 mg PO BID [facility] Last Admin: 07/11/22 21:01 Dose: 5 mg Ascorbic Acid (Ascorbic Acid 500 Mg Tablet) 500 mg PO BID [facility] Last Admin: 07/11/22 21:01 Dose: 500 mg Aspirin (Aspirin Enteric Coated 81 Mg Tablet.Dr) 81 mg PO DAILY [facility] Atorvastatin Calcium (Atorvastatin Calcium 80 Mg Tablet) 80 mg PO BEDTIME [facility] Last Admin: 07/11/22 21:01 Dose: 80 mg Calcium Carbonate/Cholecalciferol (Calcium + Vitamin D 250 Mg Tablet) 500 mg PO DAILY [facility] Cholestyramine Resin (Cholestyramine (With Sugar) 4 Gm Powd.Pack) 4 gm PO BIDWM [facility] Last Admin: 07/11/22 20:30 Dose: Not Given Diphenhydramine HCl (Diphenhydramine Hcl 25 Mg Capsule) 25 mg PO TID PRN PRN Reason: Itching Docusate Sodium (Docusate Sodium 100 Mg Capsule) 100 mg PO DAILY [facility] Ezetimibe (Ezetimibe 10 Mg Tablet) 10 mg PO DAILY [facility] Epoetin Ciara (Epoetin Ciara 10,000 Unit/Ml Vial) 10,000 unit SUBCUT TuThSa@1200 [facility] Epoetin Ciara (Epoetin Ciara 10,000 Unit/Ml Vial) 10,000 unit SUBCUT MoWe [facility] Stop: 07/13/22 15:01 Last Admin: 07/11/22 20:01 Dose: Not Given Fentanyl (Fentanyl 12 Mcg Patch.Td72) 12 mcg TRANSDERMA Q72H [facility] Fluticasone Propionate (Fluticasone Propionate Nasal 16 Gm [place]) 1 spray NOSTRIL-B DAILY [facility] Furosemide (Furosemide 20 Mg/2 Ml Vial) 20 mg IVPUSH BID@0900,1800 [facility]; Protocol Last Admin: 07/11/22 21:01 Dose: 20 mg Hydromorphone HCl (Hydromorphone Hcl 2 Mg Tablet) 2 mg PO Q12H PRN PRN Reason: Pain, Severe (Pain Scale 7-10) Cefepime HCl 2 gm/ Sodium (Chloride) 50 mls @ 100 mls/hr IV Q8H [facility] Last Infusion: 07/12/22 06:11 Dose: Infused Vancomycin HCl 500 mg/ Sodium (Chloride) 110 mls @ 110 mls/hr IV ONCE ONE Stop: 07/13/22 22:59 Insulin Glargine (Insulin Glargine,Hum.Rec.Anlog 100 Unit/Ml 10 Ml Vial) 19 unit SUBCUT DAILY [facility] Last Admin: 07/11/22 21:01 Dose: 19 unit Melatonin (Melatonin 3 Mg Tablet) 3 mg PO BEDTIME [facility] Last Admin: 07/11/22 21:01 Dose: 3 mg Midodrine (Midodrine Hcl 5 Mg Tablet) 5 mg PO TID@0900,1200,1800 [facility] Last Admin: 07/11/22 20:01 Dose: Not Given Midodrine (Midodrine Hcl 5 Mg Tablet) 5 mg PO TUTHSA@0900 [facility] Midodrine (Midodrine Hcl 5 Mg Tablet) 10 mg PO TuThSa PRN PRN Reason: LOW BLOOD PRESSURE Midodrine (Midodrine Hcl 5 Mg Tablet) 5 mg PO MoWe@0900 [facility] Stop: 07/13/22 09:01 Last Admin: 07/11/22 17:51 Dose: Not Given Multivitamins/Vitamin C (Multivitamin Tablet) 1 tab PO DAILY [facility] Nitroglycerin (Nitroglycerin 0.4 Mg Tab.Subl) 0.4 mg SUBLINGUAL Q5M PRN PRN Reason: Chest Pain Ondansetron HCl (Ondansetron Hcl 4 Mg/2 Ml Vial) 4 mg IVPUSH Q8H PRN PRN Reason: Nausea and Vomiting Oxycodone HCl (Oxycodone Hcl Immed Release 5 Mg Tablet) 5 mg PO Q6H PRN PRN Reason: Pain, Moderate (Pain Scale 4-6 Last Admin: 07/11/22 13:22 Dose: 5 mg Pharmacy Consult (Consult Rx Perform Med Rec) 1 each MISCELLANE ONCE PRN PRN Reason: Consult order Pharmacy Consult (Consult Rx Vancomycin Dosing) 1 each MISCELLANE DAILY PRN PRN Reason: Consult order Primidone (Primidone 50 Mg Tablet) 50 mg PO BEDTIME [facility] Last Admin: 07/11/22 21:01 Dose: 50 mg Senna (Sennosides 8.6 Mg Tablet) 17.2 mg PO DAILY [facility] Sodium Chloride (0.9 % Sodium Chloride Flush 3 Ml Syringe) 3 ml IVFLUSH QSHIFT [facility] Last Admin: 07/12/22 00:24 Dose: 3 ml Home Medications Medication Instructions Recorded Confirmed Last Taken Type Lactobacillus acidophilus 1 cap PO DAILY 07/11/22 07/11/22 Unknown History (Acidophilus capsule) apixaban 5 mg tablet (Eliquis) 1 tab PO BID 07/11/22 07/11/22 Unknown History ascorbic acid (vitamin C) 500 mg 500 mg PO BID 07/11/22 07/11/22 Unknown History tablet aspirin 81 mg tablet,delayed 81 mg PO DAILY 07/11/22 07/11/22 Unknown History release atorvastatin 80 mg tablet 80 mg PO BEDTIME 07/11/22 07/11/22 Unknown History calcium carbonate-vitamin D3 600 1 tab PO DAILY 07/11/22 07/11/22 Unknown History mg-125 unit tablet cholestyramine (with sugar) 4 gram 4 g PO BIDWM 07/11/22 07/11/22 Unknown History oral powder collagenase clostridium histo. 250 1 appl topical BID 07/11/22 07/11/22 Unknown History unit/gram topical ointment (Santyl) diphenhydramine HCl 25 mg capsule 25 mg PO TID PRN Itching 07/11/22 07/11/22 Unknown History (Benadryl) docusate sodium 100 mg capsule 100 mg PO DAILY 07/11/22 07/11/22 Unknown History epoetin ciara 10,000 unit/mL 10,000 unit IV TUTHSA 07/11/22 07/11/22 Unknown History injection solution ezetimibe 10 mg tablet 10 mg PO DAILY 07/11/22 07/11/22 Unknown History fentanyl 12 mcg/hr transdermal 1 patch transdermal Q72H 07/11/22 07/11/22 Unknown History patch fluticasone propionate 50 1 spray intranasal DAILY 07/11/22 07/11/22 Unknown History mcg/actuation nasal spray,suspension hydromorphone 2 mg tablet 2 mg PO Q12H PRN Pain 07/11/22 07/11/22 Unknown History insulin glargine 100 unit/mL 25 unit subcut DAILY 07/11/22 07/11/22 Unknown History subcutaneous solution insulin lispro 100 unit/mL 1 sliding scale dose subcut QIDACHS 07/11/22 07/11/22 Unknown History subcutaneous pen melatonin 3 mg tablet 3 mg PO BEDTIME 07/11/22 07/11/22 Unknown History metoprolol succinate 25 mg 25 mg PO DAILY 07/11/22 07/11/22 Unknown History tablet,extended release 24 hr midodrine 10 mg tablet 10 mg PO [facility] PRN LOW BLOOD 07/11/22 07/11/22 Unknown History PRESSURE midodrine 5 mg tablet 5 mg PO TID@0900,1200,1800 07/11/22 07/11/22 Unknown History midodrine 5 mg tablet 5 mg PO TUTHSA@0900 07/11/22 07/11/22 Unknown History nitroglycerin 0.4 mg sublingual 0.4 mg sublingual Q5M PRN Chest 07/11/22 07/11/22 Unknown History tablet (Nitrostat) Pain oxycodone 5 mg tablet 5 mg PO Q6H PRN Pain 07/11/22 07/11/22 Unknown History primidone 50 mg tablet 50 mg PO BEDTIME 07/11/22 07/11/22 Unknown History sennosides 8.6 mg tablet 17.2 mg PO DAILY 07/11/22 07/11/22 Unknown History vitamin B complex and vitamin C 1 cap PO DAILY 07/11/22 07/11/22 Unknown History no.20-folic acid 1 mg capsule Physical Exam Vital Signs: Last Vital Signs Temp 96.9 F 07/12/22 07:44 Pulse 101 H 07/12/22 07:44 Resp 20 07/12/22 07:44 BP 100/60 07/12/22 07:44 Pulse Ox 100 07/12/22 07:44 O2 Del Method 07/12/22 07:44 BMI result Body Mass Index 25.0 Const Orientation/consciousness: patient oriented x3 HEENT Head: Yes normal to inspection Neck Neck: Yes full ROM and Yes supple Resp Auscultation: clear to auscultation bilaterally Cardio Jugular venous distension: no JVD Heart sounds: no click, no murmurs and no rubs GI Inspection: Yes other (Ostomy bag is present) Palpation (GI): Soft to palpation and nontender Auscultation: normal bowel sounds Neuro General: patient oriented x3 Motor exam (neuro): no asterixis Results Lab Results Result Diagrams: 07/12/22 06:16 07/12/22 06:16 Lab results: Chemistry 07/11/22 07/12/22 05:40 06:16 Sodium 125 L 128 L Potassium 4.3 3.3 D Carbon Dioxide 23 22 BUN 45 H 34 H Creatinine 2.46 H 2.04 H Calcium 7.2 L 7.2 L Hematology 07/11/22 07/12/22 05:40 06:16 WBC 13.0 H 13.0 H Hgb 9.2 L 8.5 L Plt Count 305 307 Assessment and Plan (1) End stage renal disease: Status: Acute Plan No s/s of uremia Fluid status accpetable Will arrange for HD today Mild hyponatremia Restrict PO water intake to 1.2 L per 24 hrs Anemia Epogen per protool Procedures Date of Service Date of Service: 07/11/22
[2022-07-11] MEDS: Midodrine HCl 5 MG TABLET PO (14:16)
[2022-07-11] MEDS: cefEPime HCl 2 GM in 0.9 % Sodium Chloride 50 ML IV ×2 (14:17→21:01)
[2022-07-11] MEDS: Apixaban 5 MG TABLET PO ×2 (14:17→21:01)
[2022-07-11] MEDS: Gabapentin 300 MG CAPSULE PO (14:17)
--- NOTE | 2022-07-11 14:48 | PM.SEPBOLA3 ---
Sepsis Bolus Exclusion Sepsis Bolus Exclusion Date of Occurrence: 07/11/22 This patient met severe sepsis criteria due to the following condition(s):: Hypotension In my clinical judgement the administration of 30 ml/kg of crystalloid would be detrimental to this patient due to the patient's following conditions:: NYHA class III or IV Heart Failure(symptoms with low exertion or rest), Stage III or IV Chronic Kidney Disease (GFR<30) and Concern for fluid overload Replace the 30 mls/kg with (*zero amount not acceptable): *Note: One of the wagner must be documented Crystalloids amount given in mls: (rate must be at least 150cc/hr): 500
--- NOTE | 2022-07-11 15:04 | PC.NURSE ---
pt placed in hospital bed medicated as charted placed on telepack and transferred to dialysis
[2022-07-11] MEDS: Albumin Human 25 % 100 ML IV (17:59)
[2022-07-11 18:03] LABS: Glucose, Whole Blood 316 mg/dL (60-115)
[2022-07-11 20:53] LABS: Lactic Acid 1.5 mmol/L (0.5-2.0)
[2022-07-11] MEDS: Insulin Glargine,Hum.rec.anlog 100 UNIT/ML 10 ML VIAL 19 UNIT SUBCUT (21:01)
[2022-07-11] MEDS: Atorvastatin Calcium 80 MG TABLET PO (21:01)
[2022-07-11] MEDS: Primidone 50 MG TABLET PO (21:01)
[2022-07-11] MEDS: Melatonin 3 MG TABLET PO (21:01)
[2022-07-11] MEDS: Furosemide 20 MG/2 ML VIAL IVPUSH (21:01)
[2022-07-11] MEDS: Ascorbic Acid 500 MG TABLET PO (21:01)
[2022-07-11 21:43] LABS: Vancomycin Random 7.8 mcg/mL (15-20)
--- NOTE | 2022-07-11 21:53 | HE.PHANOTE ---
RE: Vanco level came back on 07/11 at 7.8; entered one time dose for 1000mg. Pt to be getting dialysis again on 07/13; pended dose for 07/13 and ordered post-dialysis random level for 07/13/22 @1999. Will adjust times depending on dialysis changes.
--- NOTE | 2022-07-11 23:19 | P.CNID_ITS ---
History of Present Illness Data of Consult Service Date: 07/11/22 Requesting physician: Nelly Hines Primary Care Provider: Unknown Physician HPI Reason for consult: sepsis ,sacral decubitus He presents with weakness. He had been on HD and has CAD,CHF with ICD and neuropathy. He [place] [facility] He underwent OR debridement sacral and polymicrobial. He had Vancomycin ,Kezol and Diflucan six weeks finish 06/21. He now has odor Culture shows Klebsiella,and VRE wound Review of Systems Review of Systems: Yes Unobtainable due to mental condition [facility] Past Medical History Medical History CAD (coronary artery disease) Chronic systolic heart failure Diabetic nephropathy Discoid lupus erythematosus End stage renal disease Essential tremor HLD (hyperlipidemia) Osteomyelitis of sacrum Protein deficiency Stage IV pressure ulcer of sacral region Type 2 diabetes mellitus with hyperglycemia Family History Family History Sister Type 1 diabetes Father Type 1 diabetes Father CAD (coronary artery disease) Mother Stroke Ovarian cancer Family history: reviewed and not pertinent Surgical History Surgical History S/P CABG (coronary artery bypass graft) Social History Social History Alcohol intake: never Patient Tobacco Use Status: Former Tobacco user Use of substances other than those prescribed or required for medical reasons: No Advance Directives: No Advance Directives Information Provided: Yes Meds Allergies Allergy/AdvReac Type Severity Reaction Status Date / Time sulfamethoxazole Allergy Hives Verified 07/11/22 05:49 [From Bactrim] trimethoprim [From Bactrim] Allergy Hives Verified 07/11/22 05:49 Active Medications: Current Medications Acetaminophen (Acetaminophen 325 Mg Tablet) 650 mg PO Q6H PRN PRN Reason: Pain, Mild (Pain Scale 1-3) Apixaban (Apixaban 5 Mg Tablet) 5 mg PO BID [facility] Last Admin: 07/11/22 21:01 Dose: 5 mg Ascorbic Acid (Ascorbic Acid 500 Mg Tablet) 500 mg PO BID [facility] Last Admin: 07/11/22 21:01 Dose: 500 mg Aspirin (Aspirin Enteric Coated 81 Mg Tablet.) 81 mg PO DAILY [facility] Atorvastatin Calcium (Atorvastatin Calcium 80 Mg Tablet) 80 mg PO BEDTIME [facility] Last Admin: 07/11/22 21:01 Dose: 80 mg Calcium Carbonate/Cholecalciferol (Calcium + Vitamin D 250 Mg Tablet) 500 mg PO DAILY [facility] Cholestyramine Resin (Cholestyramine (With Sugar) 4 Gm Powd.Pack) 4 gm PO BIDWM [facility] Last Admin: 07/11/22 20:30 Dose: Not Given Diphenhydramine HCl (Diphenhydramine Hcl 25 Mg Capsule) 25 mg PO TID PRN PRN Reason: Itching Docusate Sodium (Docusate Sodium 100 Mg Capsule) 100 mg PO DAILY [facility] Ezetimibe (Ezetimibe 10 Mg Tablet) 10 mg PO DAILY [facility] Epoetin Wai (Epoetin Wai 10,000 Unit/Ml Vial) 10,000 unit SUBCUT TuThSa@1200 [facility] Epoetin Wai (Epoetin Wai 10,000 Unit/Ml Vial) 10,000 unit SUBCUT MoWe [facility] Stop: 07/13/22 15:01 Last Admin: 07/11/22 20:01 Dose: Not Given Fentanyl (Fentanyl 12 Mcg Patch.Td72) 12 mcg TRANSDERMA Q72H [facility] Fluticasone Propionate (Fluticasone Propionate Nasal 16 Gm [place]) 1 spray NOSTRIL-B DAILY [facility] Furosemide (Furosemide 20 Mg/2 Ml Vial) 20 mg IVPUSH BID@0900,1800 [facility]; Protocol Last Admin: 07/11/22 21:01 Dose: 20 mg Hydromorphone HCl (Hydromorphone Hcl 2 Mg Tablet) 2 mg PO Q12H PRN PRN Reason: Pain, Severe (Pain Scale 7-10) Cefepime HCl 2 gm/ Sodium (Chloride) 50 mls @ 100 mls/hr IV Q8H [facility] Last Infusion: 07/11/22 21:42 Dose: Infused Vancomycin HCl 500 mg/ Sodium (Chloride) 110 mls @ 110 mls/hr IV ONCE ONE Stop: 07/13/22 22:59 Insulin Glargine (Insulin Glargine,Hum.Rec.Anlog 100 Unit/Ml 10 Ml Vial) 19 unit SUBCUT DAILY [facility] Last Admin: 07/11/22 21:01 Dose: 19 unit Melatonin (Melatonin 3 Mg Tablet) 3 mg PO BEDTIME [facility] Last Admin: 07/11/22 21:01 Dose: 3 mg Midodrine (Midodrine Hcl 5 Mg Tablet) 5 mg PO TID@0900,1200,1800 [facility] Last Admin: 07/11/22 20:01 Dose: Not Given Midodrine (Midodrine Hcl 5 Mg Tablet) 5 mg PO TUTHSA@0900 [facility] Midodrine (Midodrine Hcl 5 Mg Tablet) 10 mg PO TuThSa PRN PRN Reason: LOW BLOOD PRESSURE Midodrine (Midodrine Hcl 5 Mg Tablet) 5 mg PO MoWe@0900 [facility] Stop: 07/13/22 09:01 Last Admin: 07/11/22 17:51 Dose: Not Given Multivitamins/Vitamin C (Multivitamin Tablet) 1 tab PO DAILY [facility] Nitroglycerin (Nitroglycerin 0.4 Mg Tab.Subl) 0.4 mg SUBLINGUAL Q5M PRN PRN Reason: Chest Pain Ondansetron HCl (Ondansetron Hcl 4 Mg/2 Ml Vial) 4 mg IVPUSH Q8H PRN PRN Reason: Nausea and Vomiting Oxycodone HCl (Oxycodone Hcl Immed Release 5 Mg Tablet) 5 mg PO Q6H PRN PRN Reason: Pain, Moderate (Pain Scale 4-6 Last Admin: 07/11/22 13:22 Dose: 5 mg Pharmacy Consult (Consult Rx Perform Med Rec) 1 each MISCELLANE ONCE PRN PRN Reason: Consult order Pharmacy Consult (Consult Rx Vancomycin Dosing) 1 each MISCELLANE DAILY PRN PRN Reason: Consult order Primidone (Primidone 50 Mg Tablet) 50 mg PO BEDTIME [facility] Last Admin: 07/11/22 21:01 Dose: 50 mg Senna (Sennosides 8.6 Mg Tablet) 17.2 mg PO DAILY [facility] Sodium Chloride (0.9 % Sodium Chloride Flush 3 Ml Syringe) 3 ml IVFLUSH QSHIFT [facility] Last Admin: 07/11/22 18:00 Dose: Not Given Home Medications Medication Instructions Recorded Confirmed Last Taken Type Lactobacillus acidophilus 1 cap PO DAILY 07/11/22 07/11/22 Unknown History (Acidophilus capsule) apixaban 5 mg tablet (Eliquis) 1 tab PO BID 07/11/22 07/11/22 Unknown History ascorbic acid (vitamin C) 500 mg 500 mg PO BID 07/11/22 07/11/22 Unknown History tablet aspirin 81 mg tablet,delayed 81 mg PO DAILY 07/11/22 07/11/22 Unknown History release atorvastatin 80 mg tablet 80 mg PO BEDTIME 07/11/22 07/11/22 Unknown History calcium carbonate-vitamin D3 600 1 tab PO DAILY 07/11/22 07/11/22 Unknown History mg-125 unit tablet cholestyramine (with sugar) 4 gram 4 g PO BIDWM 07/11/22 07/11/22 Unknown History oral powder collagenase clostridium histo. 250 1 appl topical BID 07/11/22 07/11/22 Unknown History unit/gram topical ointment (Santyl) diphenhydramine HCl 25 mg capsule 25 mg PO TID PRN Itching 07/11/22 07/11/22 Unknown History (Benadryl) docusate sodium 100 mg capsule 100 mg PO DAILY 07/11/22 07/11/22 Unknown History epoetin wai 10,000 unit/mL 10,000 unit IV TUTHSA 07/11/22 07/11/22 Unknown History injection solution ezetimibe 10 mg tablet 10 mg PO DAILY 07/11/22 07/11/22 Unknown History fentanyl 12 mcg/hr transdermal 1 patch transdermal Q72H 07/11/22 07/11/22 Unknown History patch fluticasone propionate 50 1 spray intranasal DAILY 07/11/22 07/11/22 Unknown History mcg/actuation nasal spray,suspension hydromorphone 2 mg tablet 2 mg PO Q12H PRN Pain 07/11/22 07/11/22 Unknown Histor y insulin glargine 100 unit/mL 25 unit subcut DAILY 07/11/22 07/11/22 Unknown History subcutaneous solution insulin lispro 100 unit/mL 1 sliding scale dose subcut QIDACHS 07/11/22 07/11/22 Unknown History subcutaneous pen melatonin 3 mg tablet 3 mg PO BEDTIME 07/11/22 07/11/22 Unknown History metoprolol succinate 25 mg 25 mg PO DAILY 07/11/22 07/11/22 Unknown History tablet,extended release 24 hr midodrine 10 mg tablet 10 mg PO TUTA PRN LOW BLOOD 07/11/22 07/11/22 Unknown History PRESSURE midodrine 5 mg tablet 5 mg PO TID@0900,1200,1800 07/11/22 07/11/22 Unknown History midodrine 5 mg tablet 5 mg PO TUTHSA@0900 07/11/22 07/11/22 Unknown History nitroglycerin 0.4 mg sublingual 0.4 mg sublingual Q5M PRN Chest 07/11/22 07/11/22 Unknown History tablet (Nitrostat) Pain oxycodone 5 mg tablet 5 mg PO Q6H PRN Pain 07/11/22 07/11/22 Unknown History primidone 50 mg tablet 50 mg PO BEDTIME 07/11/22 07/11/22 Unknown History sennosides 8.6 mg tablet 17.2 mg PO DAILY 07/11/22 07/11/22 Unknown History vitamin B complex and vitamin C 1 cap PO DAILY 07/11/22 07/11/22 Unknown History no.20-folic acid 1 mg capsule Physical Exam Vital Signs: Vital Signs: Last Vital Signs Temp 96.9 F 07/11/22 20:00 Pulse 100 07/11/22 20:00 Resp 20 07/11/22 20:00 BP 115/67 07/11/22 20:00 Pulse Ox 98 07/11/22 20:00 O2 Del Method 07/11/22 20:00 BMI result Body Mass Index 23.7 Const: General: cooperative HEENT: Head: Yes normal to inspection Face and sinus: Yes normal facial exam Mouth: Normal oral and palatal mucosa present Teeth and gingiva: dentition normal Eyes: General: appearance normal, both eyes and all related structures Pupils: Equal, round and reactive pupils present Resp: Effort & Inspection: normal respiratory effort Cardio: Rate: regular rate Rhythm: regular rhythm GI: Palpation (GI): Soft to palpation and nontender : General: Yes no CVA tenderness Back/Spine/Pelvis: Other: decubitus per picture Back: no CVA tenderness Skin: General skin exam: no rashes or lesions noted Neuro: General: moves all extremities Cranial nerves: Yes Equal, round and reactive pupils present Extrem: General: Yes normal to inspection Psych: Appearance: grossly normal Results Labs CBC & Chem 7: 07/11/22 05:40 07/11/22 05:40 Labs: Short CBC 07/11/22 Range/Units 05:40 WBC 13.0 H (4.8-10.8) X10*3/uL Hgb 9.2 L (14.0-18.0) g/dl Hct 28.9 L (42.0-52.0) % Plt Count 305 (160-400) X10*3/uL BMP 07/11/22 05:40 Sodium 125 L Potassium 4.3 Chloride 91 L Carbon Dioxide 23 BUN 45 H Creatinine 2.46 H Calcium 7.2 L Liver Function 07/11/22 Range/Units 05:40 Total Bilirubin 0.3 (0.0-1.0) mg/dL Direct Bilirubin 0.3 (0.0-0.5) mg/dL AST 36 (5-37) U/L ALT 22 (0-40) U/L Alkaline Phosphatase 141 H (39-117) U/L Albumin 1.8 L (3.5-5.0) g/dL Assessment and Plan (1) Sacral decubitus ulcer: Status: Acute Possibly active resistant organisms found at [facility] (2) Sepsis: Status: Acute (3) End stage renal disease: Status: Acute Plan Treat with Merem and po Linezolid for six weeks
[2022-07-12] VITALS (7 sets, daily range): BP systolic 90–110; BP diastolic 58–73; PULSE 83–148; RESP 14–20; TEMP 36.1–36.7; O2SAT 98–100; BMI 25.0
[2022-07-12] MEDS: 0.9 % Sodium Chloride Flush 3 ML SYRINGE IVFLUSH ×2 (00:24→10:53)
[2022-07-12] MEDS: cefEPime HCl 2 GM in 0.9 % Sodium Chloride 50 ML IV ×2 (05:41→13:22)
[2022-07-12 06:49] LABS: MANUAL DIFF FLAG NO
[2022-07-12 06:58] LABS: Basophils Percent Auto 0.2 % (0-2); Eosinophils Absolute Auto 0.1 X10*3/uL (0.0-0.4); Eosinophils Percent Auto 1.1 % (0-4); Hematocrit 26.8 % (42.0-52.0); Hemoglobin 8.5 g/dl (14.0-18.0); Imm Gran Abs Auto 0.06 X10*3/uL (0.00-0.03); Imm Gran Pct Auto 0.5 % (0.0-0.4); Lymphocytes Absolute Auto 1.1 X10*3/uL (1.2-4.9); Lymphocytes Percent Auto 8.5 % (20-40); Mean Corpuscular HGB Conc 31.7 g/dl (31.0-36.0); Mean Corpuscular Hemoglobin 30.8 pg (27.0-33.0); Mean Corpuscular Volume 97.1 fL (80.0-98.0); Mean Platelet Volume 9.5 fL (9.4-12.4); Monocytes Absolute Auto 0.9 X10*3/uL (0.1-1.2); Neutrophils Absolute Auto 10.7 x10*3/uL (2.0-8.3); Neutrophils Percent Auto 82.7 % (45-73); Platelet Count 307 X10*3/uL (160-400); Red Blood Count 2.76 X10*6/uL (4.60-5.80); Red Cell Distribution Width 17.8 % (11.0-16.0)
[2022-07-12 07:34] LABS: Anion Gap 15 (12-20); Blood Urea Nitrogen 34 mg/dL (9-16); Calcium 7.2 mg/dL (8.4-10.2); Carbon Dioxide 22 mmol/L (22-29); Chloride 94 mmol/L (96-108); Creatinine Clr Calc Pharmacy 43.6; Estimated Glomerular Filt Rate 33; Glucose Random 266 mg/dL (60-115); Potassium 3.3 mmol/L (3.3-5.1); Sodium 128 mmol/L (135-145)
[2022-07-12 08:26] LABS: Glucose, Whole Blood 251 mg/dL (60-115)
--- NOTE | 2022-07-12 09:59 | P.PNIM_ITS ---
Subjective Subjective Date of Service: 07/12/22 Physical Exam Vital Signs: Vital Signs: Last Vital Signs Temp 96.9 F 07/12/22 07:44 Pulse 101 H 07/12/22 07:44 Resp 20 07/12/22 07:44 BP 100/60 07/12/22 07:44 Pulse Ox 100 07/12/22 07:44 O2 Del Method 07/12/22 07:44 BMI result Body Mass Index 25.0 Objective Data Active Medications Acetaminophen (Acetaminophen 325 Mg Tablet) 650 mg PO Q6H PRN PRN Reason: Pain, Mild (Pain Scale 1-3) Apixaban (Apixaban 5 Mg Tablet) 5 mg PO BID [facility] Last Admin: 07/11/22 21:01 Dose: 5 mg Documented By: JOSUE Ascorbic Acid (Ascorbic Acid 500 Mg Tablet) 500 mg PO BID [facility] Last Admin: 07/11/22 21:01 Dose: 500 mg Documented By: JOSUE Aspirin (Aspirin Enteric Coated 81 Mg Tablet.Dr) 81 mg PO DAILY [facility] Atorvastatin Calcium (Atorvastatin Calcium 80 Mg Tablet) 80 mg PO BEDTIME [facility] Last Admin: 07/11/22 21:01 Dose: 80 mg Documented By: JOSUE Calcium Carbonate/Cholecalciferol (Calcium + Vitamin D 250 Mg Tablet) 500 mg PO DAILY [facility] Cholestyramine Resin (Cholestyramine (With Sugar) 4 Gm Powd.Pack) 4 gm PO BIDWM [facility] Last Admin: 07/11/22 20:30 Dose: Not Given Documented By: JOSUE Non-Admin Reason: Patient in dialysis Diphenhydramine HCl (Diphenhydramine Hcl 25 Mg Capsule) 25 mg PO TID PRN PRN Reason: Itching Docusate Sodium (Docusate Sodium 100 Mg Capsule) 100 mg PO DAILY [facility] Ezetimibe (Ezetimibe 10 Mg Tablet) 10 mg PO DAILY [facility] Epoetin Wai (Epoetin Wai 10,000 Unit/Ml Vial) 10,000 unit SUBCUT TuThSa@1200 [facility] Epoetin Wai (Epoetin Wai 10,000 Unit/Ml Vial) 10,000 unit SUBCUT MoWe [facility] Stop: 07/13/22 15:01 Last Admin: 07/11/22 20:01 Dose: Not Given Documented By: JOSUE Non-Admin Reason: Given in Dialysis Fentanyl (Fentanyl 12 Mcg Patch.Td72) 12 mcg TRANSDERMA Q72H [facility] Fluticasone Propionate (Fluticasone Propionate Nasal 16 Gm [place]) 1 spray NOSTRIL-B DAILY [facility] Furosemide (Furosemide 20 Mg/2 Ml Vial) 20 mg IVPUSH BID@0900,1800 [facility]; Protocol Last Admin: 07/11/22 21:01 Dose: 20 mg Documented By: JOSUE Hydromorphone HCl (Hydromorphone Hcl 2 Mg Tablet) 2 mg PO Q12H PRN PRN Reason: Pain, Severe (Pain Scale 7-10) Cefepime HCl 2 gm/ Sodium (Chloride) 50 mls @ 100 mls/hr IV Q8H [facility] Last Infusion: 07/12/22 06:11 Dose: 0 mls/hr Documented By: JOSUE Vancomycin HCl 500 mg/ Sodium (Chloride) 110 mls @ 110 mls/hr IV ONCE ONE Stop: 07/13/22 22:59 Insulin Glargine (Insulin Glargine,Hum.Rec.Anlog 100 Unit/Ml 10 Ml Vial) 19 unit SUBCUT DAILY [facility] Last Admin: 07/11/22 21:01 Dose: 19 unit Documented By: JOSUE Melatonin (Melatonin 3 Mg Tablet) 3 mg PO BEDTIME [facility] Last Admin: 07/11/22 21:01 Dose: 3 mg Documented By: JOSUE Midodrine (Midodrine Hcl 5 Mg Tablet) 5 mg PO TID@0900,1200,1800 [facility] Last Admin: 07/11/22 20:01 Dose: Not Given Documented By: JOSUE Non-Admin Reason: Patient in dialysis Midodrine (Midodrine Hcl 5 Mg Tablet) 5 mg PO TUTHSA@0900 [facility] Midodrine (Midodrine Hcl 5 Mg Tablet) 10 mg PO TuThSa PRN PRN Reason: LOW BLOOD PRESSURE Midodrine (Midodrine Hcl 5 Mg Tablet) 5 mg PO MoWe@0900 [facility] Stop: 07/13/22 09:01 Last Admin: 07/11/22 17:51 Dose: Not Given Documented By: HUSEYIN Non-Admin Reason: Off unit: Dialysis Multivitamins/Vitamin C (Multivitamin Tablet) 1 tab PO DAILY [facility] Nitroglycerin (Nitroglycerin 0.4 Mg Tab.Subl) 0.4 mg SUBLINGUAL Q5M PRN PRN Reason: Chest Pain Ondansetron HCl (Ondansetron Hcl 4 Mg/2 Ml Vial) 4 mg IVPUSH Q8H PRN PRN Reason: Nausea and Vomiting Oxycodone HCl (Oxycodone Hcl Immed Release 5 Mg Tablet) 5 mg PO Q6H PRN PRN Reason: Pain, Moderate (Pain Scale 4-6 Last Admin: 07/11/22 13:22 Dose: 5 mg Documented By: MANNIE Pharmacy Consult (Consult Rx Perform Med Rec) 1 each MISCELLANE ONCE PRN PRN Reason: Consult order Pharmacy Consult (Consult Rx Vancomycin Dosing) 1 each MISCELLANE DAILY PRN PRN Reason: Consult order Primidone (Primidone 50 Mg Tablet) 50 mg PO BEDTIME [facility] Last Admin: 07/11/22 21:01 Dose: 50 mg Documented By: JOSUE Senna (Sennosides 8.6 Mg Tablet) 17.2 mg PO DAILY [facility] Sodium Chloride (0.9 % Sodium Chloride Flush 3 Ml Syringe) 3 ml IVFLUSH QSHIFT [facility] Last Admin: 07/12/22 00:24 Dose: 3 ml Documented By: JOSUE Labs CBC & Chem 7: 07/12/22 06:16 07/12/22 06:16 Labs: Laboratory Results - last 24 hr 07/11/22 07/11/22 07/11/22 17:56 20:10 20:11 MCV MCH MCHC RDW Plt Count MPV Immature Gran % (Auto) Neut % (Auto) Lymph % (Auto) [place] % (Auto) Eos % (Auto) Baso % (Auto) Lymph # (Auto) [place] # (Auto) Eos # (Auto) Baso # (Auto) Abs Immat Gran (auto) Absolute Neuts (auto) Absolute Nucleated RBC Nucleated RBC % (auto) Anion Gap Estim Creat Clear Calc Estimated GFR POC Glucose 316 H Random Glucose Lactic Acid 1.5 Calcium Random Vancomycin 7.8 L 07/12/22 07/12/22 07/12/22 06:16 06:16 08:22 MCV 97.1 MCH 30.8 MCHC 31.7 RDW 17.8 H Plt Count 307 MPV 9.5 Immature Gran % (Auto) 0.5 H Neut % (Auto) 82.7 H Lymph % (Auto) 8.5 L [place] % (Auto) 7.0 Eos % (Auto) 1.1 Baso % (Auto) 0.2 Lymph # (Auto) 1.1 L [place] # (Auto) 0.9 Eos # (Auto) 0.1 Baso # (Auto) 0.0 Abs Immat Gran (auto) 0.06 H Absolute Neuts (auto) 10.7 H Absolute Nucleated RBC 0.000 Nucleated RBC % (auto) 0.0 Anion Gap 15 Estim Creat Clear Calc 43.6 Estimated GFR 33 POC Glucose 251 H Random Glucose 266 H Lactic Acid Calcium 7.2 L Random Vancomycin Microbiology Microbiology Results: Microbiology 07/11/22 06:35 Blood Culture - Preliminary Blood - Arterial Line No growth after 24 hours. 07/11/22 06:35 Blood Culture - Preliminary Blood - Arterial Line No growth after 24 hours. 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 Avina in ID admitted for chest pain found to be septic with stage IV decubitus ulcer of the sacrum with osteomyelitis. #Probable sepsis- secondary to stage IV decubitus ulcer of the sacrum with os teomyelitis -leukocytosis has been chronic over the last few months secondary to osteomyelitis but remains elevated despite completing IV antibiotics at 13.0.? Patient also tachycardic to 116 likely secondary to sepsis as well as atrial fibrillation..at this point sepsis resolved -IV vancomycin and cefepime for now, ID recommend PO Zyvox and IV Meropenem for discharge x 6 weeks -request PICC line -follow blood cultures and CBC # osteomyelitis of the sacrum secondary to stage IV decubitus ulcer -completed several weeks IV abx per patient. [facility] Summary and ID notes requested -ID notes requested from [facility]. Most recent discahrge summary requested from [facility] -ID recommendation above #Stage IV decubitus ulcer sacrum- present on arrival -general surgery consulted for possible debridement the wound does look clean at this time with some granulation tissue -reposition often # ESRD secondary to diabetic nephropathy -nephrology consult placed -will need HD today per outpt provider, Dr. Saab -Change epoetin and midrodrine schedule to match dialysis schedule while admitted per nephrology # anasarca-secondary to ESRD -No ton home diuretics -20mg IV lasix BID -Strict I&O, continue barreto for fluid management #Malnutrition with moderate protein calory malnutrition -total protein 5.1, albumin 1.8 -nutrition consult Ensure b.i.d. # chest pain-resolved following nitroglycerin administration while at STR -troponins flat -EKG showing AFib with RVR, no FRANCINE # hypotension-was not due to sepsis and resolved # paroxysmal atrial fibrillation -initially RVR, rate now controlled following 2.5 mg push Lopressor in ED -rate is controlled, resume coumadin a -continue Eliquis for anticoagulation # coronary artery disease-chest pain resolved -continue ASA, Eliquis, atorvastatin, BB # insulin-dependent type 2 diabetes with hyperglycemia -POC glucose -diabetic diet -Humalog on sliding scale -dose adjusted Lantus 19 units daily #Chronic systolic heart failure -compensated -continue home meds #discoid lupus erythematous -continue home meds # generalized weakness -PT/OT eval DVT prophylaxis-continue Eliquis Full code need for inpatient: Sepsis that is requiring IV Abx Quality Stroke Does the patient have a stroke diagnosis?: No VTE Prior VTE?: No VTE Risk Level:: Medical - moderate - high VTE Device Contraindication: Treatment Not Indicated VTE Drug Contraindication: N/A - Med Ordered
[2022-07-12] MEDS: Cholestyramine (With Sugar) 4 GM POWD.PACK PO (10:49)
[2022-07-12] MEDS: Ezetimibe 10 MG TABLET PO (10:49)
[2022-07-12] MEDS: Midodrine HCl 5 MG TABLET PO ×2 (10:50→13:22)
[2022-07-12] MEDS: Calcium + Vitamin D 250 MG TABLET 500 MG PO (10:50)
[2022-07-12] MEDS: Docusate Sodium 100 MG CAPSULE PO (10:50)
[2022-07-12] MEDS: Aspirin Enteric Coated 81 MG TABLET.DR PO (10:50)
[2022-07-12] MEDS: Insulin Glargine,Hum.rec.anlog 100 UNIT/ML 10 ML VIAL 19 UNIT SUBCUT (10:51)
[2022-07-12] MEDS: Ascorbic Acid 500 MG TABLET PO ×2 (10:51→21:18)
[2022-07-12] MEDS: Multivitamin TABLET 1 TAB PO (10:51)
[2022-07-12] MEDS: Apixaban 5 MG TABLET PO ×2 (10:51→21:18)
[2022-07-12] MEDS: Sennosides 8.6 MG TABLET 17.2 MG PO (10:51)
[2022-07-12] MEDS: Furosemide 20 MG/2 ML VIAL IVPUSH ×2 (10:52→17:49)
--- NOTE | 2022-07-12 10:57 | P.PNNP_ITS ---
Subjective Subjective Date of Service: 07/13/22 Interval history: Events noted Physical Exam Vital Signs: Vital Signs: Last Vital Signs Temp 96.9 F 07/12/22 07:44 Pulse 101 H 07/12/22 07:44 Resp 20 07/12/22 07:44 BP 100/60 07/12/22 07:44 Pulse Ox 100 07/12/22 07:44 O2 Del Method 07/12/22 07:44 BMI result Body Mass Index 25.0 Const: Orientation/consciousness: patient oriented x3 HEENT: Head: Yes normal to inspection Neck: Neck: Yes full ROM and Yes supple Resp: Auscultation: clear to auscultation bilaterally Cardio: Jugular venous distension: no JVD Heart sounds: no click, no murmurs and no rubs GI: Inspection: Yes other (Ostomy bag is present) Palpation (GI): Soft to palpation and nontender Auscultation: normal bowel sounds Neuro: General: patient oriented x3 Motor exam (neuro): no asterixis Objective Data Labs CBC & Chem 7: 07/13/22 09:48 07/13/22 09:48 Labs: Laboratory Results - last 24 hr 07/11/22 07/11/22 07/11/22 17:56 20:10 20:11 WBC RBC Hgb Hct MCV MCH MCHC RDW Plt Count MPV Immature Gran % (Auto) Neut % (Auto) Lymph % (Auto) [place] % (Auto) Eos % (Auto) Baso % (Auto) Lymph # (Auto) [place] # (Auto) Eos # (Auto) Baso # (Auto) Abs Immat Gran (auto) Absolute Neuts (auto) Absolute Nucleated RBC Nucleated RBC % (auto) Sodium Potassium Chloride Carbon Dioxide Anion Gap BUN Creatinine Estim Creat Clear Calc Estimated GFR POC Glucose 316 H Random Glucose Lactic Acid 1.5 Calcium Random Vancomycin 7.8 L 07/12/22 07/12/22 07/12/22 06:16 06:16 08:22 WBC 13.0 H RBC 2.76 L Hgb 8.5 L Hct 26.8 L MCV 97.1 MCH 30.8 MCHC 31.7 RDW 17.8 H Plt Count 307 MPV 9.5 Immature Gran % (Auto) 0.5 H Neut % (Auto) 82.7 H Lymph % (Auto) 8.5 L [place] % (Auto) 7.0 Eos % (Auto) 1.1 Baso % (Auto) 0.2 Lymph # (Auto) 1.1 L [place] # (Auto) 0.9 Eos # (Auto) 0.1 Baso # (Auto) 0.0 Abs Immat Gran (auto) 0.06 H Absolute Neuts (auto) 10.7 H Absolute Nucleated RBC 0.000 Nucleated RBC % (auto) 0.0 Sodium 128 L Potassium 3.3 D Chloride 94 L Carbon Dioxide 22 Anion Gap 15 BUN 34 H Creatinine 2.04 H Estim Creat Clear Calc 43.6 Estimated GFR 33 POC Glucose 251 H Random Glucose 266 H Lactic Acid Calcium 7.2 L Random Vancomycin Microbiology Microbiology Results: Microbiology 07/11/22 06:35 Blood - Arterial Line Blood Culture - Preliminary No growth after 24 hours. 07/11/22 06:35 Blood - Arterial Line Blood Culture - Preliminary No growth after 24 hours. Procedures Date of Service Date of Service: 07/12/22 Assessment & Plan Assessment and plan (1) End stage renal disease: Status: Acute Plan No s/s of uremia Fluid status acceptable Will arrange for HD tomorrow Mild hyponatremia Restrict PO water intake to 1.2 L per 24 hrs Anemia Epogen per protool Time Spent With Patient Time: Total time spent is greater than 50% in coordination of care (as documented) at patient's floor/unit and/or counseling patient: Progress Note: Quality Stroke Does the patient have a stroke diagnosis?: No
[2022-07-12 11:13] LABS: Glucose, Whole Blood 276 mg/dL (60-115)
[2022-07-12] MEDS: HYDROmorphone HCl 2 MG TABLET PO (11:33)
--- NOTE | 2022-07-12 11:40 | PM.PNGS ---
Subjective Subjective Date of Service: 07/12/22 Interval history: says he is sore on his ulcer but feels better than yesterday no chest pain Physical Exam Vital Signs: Vital Signs: Last Vital Signs Temp 97.5 F 07/12/22 11:07 Pulse 121 H 07/12/22 11:07 Resp 20 07/12/22 11:07 BP 98/63 07/12/22 11:07 Pulse Ox 100 07/12/22 11:07 O2 Del Method 07/12/22 11:07 BMI result Body Mass Index 25.0 Const: General: comfortable and no acute distress Resp: Effort & Inspection: normal respiratory effort Cardio: Rate: tachycardic GI: Palpation (GI): Soft to palpation Back/Spine/Pelvis: Other: dressings on large sacral ulcer dry, clean Objective Data Active Medications Acetaminophen (Acetaminophen 325 Mg Tablet) 650 mg PO Q6H PRN PRN Reason: Pain, Mild (Pain Scale 1-3) Apixaban (Apixaban 5 Mg Tablet) 5 mg PO BID [facility] Last Admin: 07/12/22 10:51 Dose: 5 mg Documented By: GAGANDEEP Ascorbic Acid (Ascorbic Acid 500 Mg Tablet) 500 mg PO BID [facility] Last Admin: 07/12/22 10:51 Dose: 500 mg Documented By: GAGANDEEP Aspirin (Aspirin Enteric Coated 81 Mg Tablet.) 81 mg PO DAILY [facility] Last Admin: 07/12/22 10:50 Dose: 81 mg Documented By: GAGANDEEP Atorvastatin Calcium (Atorvastatin Calcium 80 Mg Tablet) 80 mg PO BEDTIME [facility] Last Admin: 07/11/22 21:01 Dose: 80 mg Documented By: JOSUE Calcium Carbonate/Cholecalciferol (Calcium + Vitamin D 250 Mg Tablet) 500 mg PO DAILY [facility] Last Admin: 07/12/22 10:50 Dose: 500 mg Documented By: GAGANDEEP Cholestyramine Resin (Cholestyramine (With Sugar) 4 Gm Powd.Pack) 4 gm PO BIDWM [facility] Last Admin: 07/12/22 10:49 Dose: 4 gm Documented By: GAGANDEEP Diphenhydramine HCl (Diphenhydramine Hcl 25 Mg Capsule) 25 mg PO TID PRN PRN Reason: Itching Docusate Sodium (Docusate Sodium 100 Mg Capsule) 100 mg PO DAILY [facility] Last Admin: 07/12/22 10:50 Dose: 100 mg Documented By: GAGANDEEP Ezetimibe (Ezetimibe 10 Mg Tablet) 10 mg PO DAILY [facility] Last Admin: 07/12/22 10:49 Dose: 10 mg Documented By: GAGANDEEP Epoetin Wia (Epoetin Wai 10,000 Unit/Ml Vial) 10,000 unit SUBCUT TuThSa@1200 [facility] Epoetin Wai (Epoetin Wai 10,000 Unit/Ml Vial) 10,000 unit SUBCUT MoWe [facility] Stop: 07/13/22 15:01 Last Admin: 07/11/22 20:01 Dose: Not Given Documented By: JOSUE Non-Admin Reason: Given in Dialysis Fentanyl (Fentanyl 12 Mcg Patch.Td72) 12 mcg TRANSDERMA Q72H [facility] Fluticasone Propionate (Fluticasone Propionate Nasal 16 Gm [place]) 1 spray NOSTRIL-B DAILY [facility] Last Admin: 07/12/22 10:57 Dose: Not Given Documented By: GAGANDEEP Non-Admin Reason: Patient Refused Furosemide (Furosemide 20 Mg/2 Ml Vial) 20 mg IVPUSH BID@0900,1800 [facility]; Protocol Last Admin: 07/12/22 10:52 Dose: 20 mg Documented By: GAGANDEEP Hydromorphone HCl (Hydromorphone Hcl 2 Mg Tablet) 2 mg PO Q12H PRN PRN Reason: Pain, Severe (Pain Scale 7-10) Last Admin: 07/12/22 11:33 Dose: 2 mg Documented By: GAGANDEEP Cefepime HCl 2 gm/ Sodium (Chloride) 50 mls @ 100 mls/hr IV Q8H [facility] Last Infusion: 07/12/22 06:11 Dose: 0 mls/hr Documented By: JOSUE Vancomycin HCl 500 mg/ Sodium (Chloride) 110 mls @ 110 mls/hr IV ONCE ONE Stop: 07/13/22 22:59 Insulin Glargine (Insulin Glargine,Hum.Rec.Anlog 100 Unit/Ml 10 Ml Vial) 19 unit SUBCUT DAILY [facility] Last Admin: 07/12/22 10:51 Dose: 19 unit Documented By: GAGANDEEP Melatonin (Melatonin 3 Mg Tablet) 3 mg PO BEDTIME [facility] Last Admin: 07/11/22 21:01 Dose: 3 mg Documented By: JOSUE Midodrine (Midodrine Hcl 5 Mg Tablet) 5 mg PO TID@0900,1200,1800 [facility] Last Admin: 07/12/22 10:50 Dose: 5 mg Documented By: GAGANDEEP Midodrine (Midodrine Hcl 5 Mg Tablet) 5 mg PO TUTHSA@0900 [facility] Midodrine (Midodrine Hcl 5 Mg Tablet) 10 mg PO TuThSa PRN PRN Reason: LOW BLOOD PRESSURE Midodrine (Midodrine Hcl 5 Mg Tablet) 5 mg PO MoWe@0900 [facility] Stop: 07/13/22 09:01 Last Admin: 07/11/22 17:51 Dose: Not Given Documented By: HUSEYIN Non-Admin Reason: Off unit: Dialysis Multivitamins/Vitamin C (Multivitamin Tablet) 1 tab PO DAILY [facility] Last Admin: 07/12/22 10:51 Dose: 1 tab Documented By: GAGANDEEP Nitroglycerin (Nitroglycerin 0.4 Mg Tab.Subl) 0.4 mg SUBLINGUAL Q5M PRN PRN Reason: Chest Pain Ondansetron HCl (Ondansetron Hcl 4 Mg/2 Ml Vial) 4 mg IVPUSH Q8H PRN PRN Reason: Nausea and Vomiting Oxycodone HCl (Oxycodone Hcl Immed Release 5 Mg Tablet) 5 mg PO Q6H PRN PRN Reason: Pain, Moderate (Pain Scale 4-6 Last Admin: 07/11/22 13:22 Dose: 5 mg Documented By: MANNIE Pharmacy Consult (Consult Rx Perform Med Rec) 1 each MISCELLANE ONCE PRN PRN Reason: Consult order Pharmacy Consult (Consult Rx Vancomycin Dosing) 1 each MISCELLANE DAILY PRN PRN Reason: Consult order Primidone (Primidone 50 Mg Tablet) 50 mg PO BEDTIME [facility] Last Admin: 07/11/22 21:01 Dose: 50 mg Documented By: JOSUE Senna (Sennosides 8.6 Mg Tablet) 17.2 mg PO DAILY [facility] Last Admin: 07/12/22 10:51 Dose: 17.2 mg Documented By: GAGANDEEP Sodium Chloride (0.9 % Sodium Chloride Flush 3 Ml Syringe) 3 ml IVFLUSH QSHIFT [facility] Last Admin: 07/12/22 10:53 Dose: 3 ml Documented By: GAGANDEEP Labs CBC & Chem 7: 07/12/22 06:16 07/12/22 06:16 Labs: Laboratory Results - last 24 hr 07/11/22 07/11/22 07/11/22 17:56 20:10 20:11 MCV MCH MCHC RDW Plt Count MPV Immature Gran % (Auto) Neut % (Auto) Lymph % (Auto) [place] % (Auto) Eos % (Auto) Baso % (Auto) Lymph # (Auto) [place] # (Auto) Eos # (Auto) Baso # (Auto) Abs Immat Gran (auto) Absolute Neuts (auto) Absolute Nucleated RBC Nucleated RBC % (auto) Anion Gap Estim Creat Clear Calc Estimated GFR POC Glucose 316 H Random Glucose Lactic Acid 1.5 Calcium Random Vancomycin 7.8 L 07/12/22 07/12/22 07/12/22 06:16 06:16 08:22 MCV 97.1 MCH 30.8 MCHC 31.7 RDW 17.8 H Plt Count 307 MPV 9.5 Immature Gran % (Auto) 0.5 H Neut % (Auto) 82.7 H Lymph % (Auto) 8.5 L [place] % (Auto) 7.0 Eos % (Auto) 1.1 Baso % (Auto) 0.2 Lymph # (Auto) 1.1 L [place] # (Auto) 0.9 Eos # (Auto) 0.1 Baso # (Auto) 0.0 Abs Immat Gran (auto) 0.06 H Absolute Neuts (auto) 10.7 H Absolute Nucleated RBC 0.000 Nucleated RBC % (auto) 0.0 Anion Gap 15 Estim Creat Clear Calc 43.6 Estimated GFR 33 POC Glucose 251 H Random Glucose 266 H Lactic Acid Calcium 7.2 L Random Vancomycin 07/12/22 11:10 MCV MCH MCHC RDW Plt Count MPV Immature Gran % (Auto) Neut % (Auto) Lymph % (Auto) [place] % (Auto) Eos % (Auto) Baso % (Auto) Lymph # (Auto) [place] # (Auto) Eos # (Auto) Baso # (Auto) Abs Immat Gran (auto) Absolute Neuts (auto) Absolute Nucleated RBC Nucleated RBC % (auto) Anion Gap Estim Creat Clear Calc Estimated GFR POC Glucose 276 H Random Glucose Lactic Acid Calcium Random Vancomycin Microbiology Microbiology Results: Microbiology 07/11/22 06:35 Blood Culture - Preliminary Blood - Arterial Line No growth after 24 hours. 07/11/22 06:35 Blood Culture - Preliminary Blood - Arterial Line No growth after 24 hours. Procedures Date of Service Date of Service: 07/12/22 Progress Note: A&P Assessment and plan (1) Sacral decubitus ulcer: Status: Acute Assessment and Plan: stage IV sacral decubitus ulcer was diagnosed to have osteomyelitis of exposed bone in [facility] dressings have been changed by nursing staff change position side to side for decubitus ulcer precautions IV antibiotics physical therapy - patient seems to have very poor muscle strength and is bed-bound Time Spent With Patient Time: Total time spent is greater than 50% in coordination of care (as documented) at patient's floor/unit and/or counseling patient: Quality Stroke Does the patient have a stroke diagnosis?: No VTE Prior VTE?: No VTE Risk Level:: Medical - moderate - high VTE Device Contraindication: Treatment Not Indicated VTE Drug Contraindication: N/A - Med Ordered
--- NOTE | 2022-07-12 12:11 | MHC.CM.PN ---
IMM DELIVERED CM MET WITH PT WHO IS CURRENTLY AT [facility] FOR STR. PT STATES HE HAS HAD MULTIPLE HOSPITALIZATIONS BETWEEN [facility] AND [facility]. PT HAS ESRD AND ATTENDS HD T-TH-SAT AT [facility]. PATIENT STATES HE IS ESSENTIALLY BEDBOUND. +HCP (SISTER- VLADISLAV AUGUST [phone] [place] [phone]) COVID VAX X3. PCP DR. MAYORGA. DP: RETURN REFERRAL SENT TO [facility], WILL RETURN VIA BLS WHEN MEDICALLY READY.
[2022-07-12] MEDS: dilTIAZem HCL 50 MG/10 ML VIAL 10 MG IVPUSH (13:21)
--- NOTE | 2022-07-12 14:45 | MHC.CLN ---
RE: CONSULT PT IS MODERATELY MALNOURISHED PT WITH MILD DEPLETED SUBCUTANEOUS FAT AND MUSCLE MASS WITH INCREASED NUTRITION NEEDS R/T PRESSURE INJURY, ESRD ON HD AND OSTEOMYELITIS (ACUTE ILLNESS) DIET RX: 2000DM 1500ML FR-WILL CHANGE TO 2200DM DIET TO MEET NEEDS PT RECEIVING ENSURE BID TO INCREASE KCALS AND PROMOTE WOUND HEALING SUPP PROVIDES 800KCALS, 40G PROTEIN MONITOR PO INTAKE CLOSELY SEE ALSO FULL CLINICAL NUTRITION ASSESSMENT
[2022-07-12 17:35] LABS: Glucose, Whole Blood 347 mg/dL (60-115)
[2022-07-12] MEDS: Insulin Lispro 100 UNIT/ML 3 ML VIAL SUBCUT ×2 (17:49→21:18)
[2022-07-12] MEDS: Metoprolol Succinate ER 25 MG TAB.ER.24H PO (17:49)
[2022-07-12] MEDS: Linezolid 600 MG TABLET PO (17:54)
[2022-07-12] MEDS: dilTIAZem HCL 125 MG in 0.9 % Sodium Chloride 100 ML IVCONT (18:47)
[2022-07-12 20:16] LABS: Glucose, Whole Blood 338 mg/dL (60-115)
[2022-07-12] MEDS: oxyCODONE HCl Immed Release 5 MG TABLET PO (21:18)
[2022-07-12] MEDS: Melatonin 3 MG TABLET PO (21:18)
[2022-07-12] MEDS: Primidone 50 MG TABLET PO (21:18)
[2022-07-12] MEDS: Atorvastatin Calcium 80 MG TABLET PO (21:18)
[2022-07-13] VITALS (7 sets, daily range): BP systolic 91–130; BP diastolic 56–80; PULSE 69–147; RESP 12–18; TEMP 36–37.1; O2SAT 93–100
[2022-07-13] MEDS: Linezolid 600 MG TABLET PO ×2 (05:55→18:50)
[2022-07-13 09:02] LABS: Glucose, Whole Blood 89 mg/dL (60-115)
[2022-07-13 09:53] LABS: MANUAL DIFF FLAG NO
[2022-07-13 10:01] LABS: Basophils Percent Auto 0.3 % (0-2); Eosinophils Absolute Auto 0.2 X10*3/uL (0.0-0.4); Eosinophils Percent Auto 1.3 % (0-4); Hematocrit 23.8 % (42.0-52.0); Hemoglobin 7.7 g/dl (14.0-18.0); Imm Gran Pct Auto 0.7 % (0.0-0.4); Lymphocytes Absolute Auto 0.8 X10*3/uL (1.2-4.9); Lymphocytes Percent Auto 5.1 % (20-40); Mean Corpuscular HGB Conc 32.4 g/dl (31.0-36.0); Mean Corpuscular Hemoglobin 31.4 pg (27.0-33.0); Mean Corpuscular Volume 97.1 fL (80.0-98.0); Mean Platelet Volume 9.2 fL (9.4-12.4); Monocytes Absolute Auto 0.9 X10*3/uL (0.1-1.2); Monocytes Percent Auto 5.9 % (2-11); Neutrophils Absolute Auto 13.1 x10*3/uL (2.0-8.3); Neutrophils Percent Auto 86.7 % (45-73); Platelet Count 290 X10*3/uL (160-400); Red Blood Count 2.45 X10*6/uL (4.60-5.80); Red Cell Distribution Width 17.2 % (11.0-16.0)
[2022-07-13] MEDS: fentaNYL 12 MCG PATCH.TD72 TRANSDERMA (10:04)
[2022-07-13] MEDS: Cholestyramine (With Sugar) 4 GM POWD.PACK PO (10:06)
[2022-07-13] MEDS: Aspirin Enteric Coated 81 MG TABLET.DR PO (10:06)
[2022-07-13] MEDS: Sennosides 8.6 MG TABLET 17.2 MG PO (10:06)
[2022-07-13] MEDS: Apixaban 5 MG TABLET PO ×2 (10:07→20:14)
[2022-07-13] MEDS: Metoprolol Succinate ER 25 MG TAB.ER.24H PO (10:07)
[2022-07-13] MEDS: Ascorbic Acid 500 MG TABLET PO ×2 (10:07→20:15)
[2022-07-13] MEDS: Multivitamin TABLET 1 TAB PO (10:07)
[2022-07-13] MEDS: Midodrine HCl 5 MG TABLET PO ×3 (10:07→12:50)
[2022-07-13] MEDS: Docusate Sodium 100 MG CAPSULE PO (10:07)
[2022-07-13] MEDS: Ezetimibe 10 MG TABLET PO (10:07)
[2022-07-13] MEDS: Furosemide 20 MG/2 ML VIAL IVPUSH ×2 (10:08→20:14)
[2022-07-13 10:17] LABS: Anion Gap 10 (12-20); Blood Urea Nitrogen 41 mg/dL (9-16); Calcium 7.1 mg/dL (8.4-10.2); Carbon Dioxide 24 mmol/L (22-29); Chloride 94 mmol/L (96-108); Creatinine Clr Calc Pharmacy 40.8; Estimated Glomerular Filt Rate 30; Glucose Random 129 mg/dL (60-115); Potassium 3.3 mmol/L (3.3-5.1); Sodium 125 mmol/L (135-145)
--- NOTE | 2022-07-13 10:20 | MHC.CLN ---
F/U PT IS MODERATELY MALNOURISHED SEE FULL CLINICAL NUTRITION ASSESSMENT DATED 07/12/22 DIET RX: 2200DM 1500ML FR-APPROPRIATE PT RECEIVING ENSURE BID TO INCREASE KCALS AND PROMOTE WOUND HEALING SUPP PROVIDES 800KCALS, 40G PROTEIN WILL ADD ANITA BID TO PROMOTE WOUND HEALING MONITOR PO INTAKE CLOSELY
[2022-07-13] MEDS: Insulin Glargine,Hum.rec.anlog 100 UNIT/ML 10 ML VIAL 19 UNIT SUBCUT (10:35)
[2022-07-13] MEDS: Calcium + Vitamin D 250 MG TABLET 500 MG PO (10:35)
[2022-07-13] MEDS: 0.9 % Sodium Chloride Flush 3 ML SYRINGE IVFLUSH ×3 (10:36→20:15)
--- NOTE | 2022-07-13 10:48 | P.DS_ITS ---
DS: Providers Provider Date of Service: 07/13/22 Date of admission: 07/11/22 12:18 Primary care physician: Unknown Physician Consults: 07/11/22 12:14 Consult to Nephrology Routine Consulting Provider: Juice Smith Reason for consultation: ESRD, needs dialysis today due to holiday 07/11/22 12:15 Consult to General Surgery Routine Consulting Provider: Saud Vidales Reason for consultation: stage IV sacral ulcer with osteomyelitis Consult to Infectious Diseases Routine Consulting Provider: Trupti Stein Reason for consultation: stage IV decubitus ulcer with recent osteomyelitis and sepsis DS: Diagnosis Discharge Diagnosis (1) Sacral decubitus ulcer: Status: Acute DS: Summary Hospital Course Hospital Course: Chief Complaint: chest pain, hypotension 59-year-old male with history of hyperlipidemia, insulin-dependent type 2 diabetes, orthostatic hypotension, ESRD on dialysis T//Mon following with Milton Saab, essential tremor, coronary artery disease s/p CABG 12 years ago, chronic systolic heart failure, 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 Avina in [place] presented to ED from short-term rehab facility where patient has been residing following multiple admissions to [facility] in [facility] for ESRD and osteomyelitis related to stage IV sacral ulcer.? He was transferred to the ED via EMS after developing chest pain.? Patient was given dose of nitro with blood pressure of 111/57 with resolution of his chest pain with subsequent hypotensive episodes down to 65/40 with lightheadedness.? There is no associated shortness of breath, palpitations, recurrence of chest pain.? There is no syncopal episode.? On arrival, blood pressure 94/57, 116/65.? He was tachycardic on arrival to 116 and found to be in AFib with RVR on EKG.? Given 2.5 mg Lopressor with improvement in the heart rate to high 80s on exam.? He is afebrile without hypoxia.? White blood cell count 13.0, this has been chronically elevated for for the last 2 months with highest recorded WBC of 23.4 in our system.? No bandemia.? Lactic acid 1.0.? Creatinine 2.46, BUN 45, consistent with baseline.? Sodium 125, baseline around 127, chloride 91, potassium 4.3, CO2 23.? Glucose 409.? CRP 7.83.? Total protein 5.1, albumin 1.8.? Given empiric doses of ceftriaxone and vancomycin.? Patient to be admitted for stage IV decubitus ulcer/osteomyelitis meeting sepsis criteria and ESRD. Hospital course: Patient presented with sepsis with infected stage 4 decub ulcer and osteomyltis as source. He was hypotensive on presentation but likely related to his chronic hypotenison and meds. #Probable sepsis- secondary to stage IV decubitus ulcer of the sacrum with osteomyelitis -leukocytosis has been chronic over the last few months secondary to osteomyelitis but remains elevated despite completing IV antibiotics at 13.0.? ID recommended IV meropenem and PO zyvox for 6 weeks. Clinically stable at moment. WBC is down to 15 and otherwise has no features of sepsis. #Stage IV decubitus ulcer sacrum- present on arrival, Seen by surgery and no indication for debridement, preventative measures with frequent turning, appropriate bed # ESRD--to continue usual schedule of dialysis (Monday, and Monday) # anasarca-secondary to ESRD--fluid removal at dialysis #Malnutrition with protein deficiency with protein deficiency--ensure # chest pain-resolved with no evidence of ACS #Permanent AFIB with RVR--likely from sepsis and required IV cardizem but now back on usual dose of Toprol and HR in 90s # hypotension-resolved -secondary to nitroglycerin administration, not septic shock -hold metoprolol # paroxysmal atrial fibrillation -initially RVR, rate now controlled following 2.5 mg push Lopressor in ED -BP soft, hold metoprolol -continue Eliquis for anticoagulation -admit to telemetry # coronary artery disease-chest pain resolved -continue ASA, Eliquis, atorvastatin.? Hold beta-willow due to soft blood pressure # insulin-dependent type 2 diabetes with hyperglycemia -POC glucose -diabetic diet -Humalog on sliding scale -dose adjusted Lantus 19 units daily #Chronic systolic heart failure -compensated -continue home meds #discoid lupus erythematous -continue home meds # generalized weakness Time Spent with Patient Time attestation: Total time spent providing and/or coordinating discharge services: Physical Exam Vital Signs: Vital Signs: Last Vital Signs Temp 96.8 F 07/13/22 07:40 Pulse 91 07/13/22 07:40 Resp 18 07/13/22 07:40 BP 106/59 L 07/13/22 07:40 Pulse Ox 93 07/13/22 07:40 O2 Del Method 07/13/22 07:40 BMI result Body Mass Index 25.0 DS: Data Data Completed and Pending Labs on day of discharge: Laboratory Results - last 24 hr 07/12/22 07/12/22 07/12/22 11:10 17:31 19:59 WBC RBC Hgb Hct MCV MCH MCHC RDW Plt Count MPV Immature Gran % (Auto) Neut % (Auto) Lymph % (Auto) [place] % (Auto) Eos % (Auto) Baso % (Auto) Lymph # (Auto) [place] # (Auto) Eos # (Auto) Baso # (Auto) Abs Immat Gran (auto) Absolute Neuts (auto) Absolute Nucleated RBC Nucleated RBC % (auto) Sodium Potassium Chloride Carbon Dioxide Anion Gap BUN Creatinine Estim Creat Clear Calc Estimated GFR POC Glucose 276 H 347 H 338 H Random Glucose Calcium 07/13/22 07/13/22 07/13/22 07:45 09:48 09:48 WBC 15.0 H RBC 2.45 L Hgb 7.7 L Hct 23.8 L MCV 97.1 MCH 31.4 MCHC 32.4 RDW 17.2 H Plt Count 290 MPV 9.2 L Immature Gran % (Auto) 0.7 H Neut % (Auto) 86.7 H Lymph % (Auto) 5.1 L [place] % (Auto) 5.9 Eos % (Auto) 1.3 Baso % (Auto) 0.3 Lymph # (Auto) 0.8 L [place] # (Auto) 0.9 Eos # (Auto) 0.2 Baso # (Auto) 0.0 Abs Immat Gran (auto) 0.10 H Absolute Neuts (auto) 13.1 H Absolute Nucleated RBC 0.000 Nucleated RBC % (auto) 0.0 Sodium 125 L Potassium 3.3 Chloride 94 L Carbon Dioxide 24 Anion Gap 10 L BUN 41 H Creatinine 2.18 H Estim Creat Clear Calc 40.8 Estimated GFR 30 POC Glucose 89 Random Glucose 129 H Calcium 7.1 L Preliminary micro results at discharge 07/11/22 06:35 Blood Culture - Preliminary Blood - Arterial Line No growth after 48 hours. 07/11/22 06:35 Blood Culture - Preliminary Blood - Arterial Line No growth after 48 hours. Discharge Plan Discharge Anticipated Discharge Date/Time: 07/13/22 10:41 Patient Disposition: Xfer SNF Discharge Diagnosis: Sepsis from decub ulcer, CKD5, chronic hyponatremia Referrals: [facility] [Outside] - 1 Day (TRANSFER BACK TO [facility] FOR SHORT TERM REHAB/DIALYSIS) Physician,Unknown J [Primary Care Provider] - 1 Week Discharge Medications: New linezolid 600 mg Tablet 600 mg PO Q12H Qty: 80 0RF meropenem 500 mg Recon Soln 500 mg IV Q24H Qty: 40 0RF Continued primidone 50 mg Tablet 50 mg PO BEDTIME atorvastatin 80 mg Tablet 80 mg PO BEDTIME sennosides 8.6 mg Tablet 17.2 mg PO DAILY insulin glargine 100 unit/mL Solution 25 unit SUBCUT DAILY midodrine 5 mg Tablet 5 mg PO TUTHSA@0900 Rx Instructions: Give a total dose of 10 mg prior to dialysis midodrine 5 mg Tablet 5 mg PO TID@0900,1200,1800 Rx Instructions: do not give last dose of day after 6PM or within 4 hrs of bedtime melatonin 3 mg Tablet 3 mg PO BEDTIME aspirin 81 mg Tablet,Delayed Release (Dr/Ec) 81 mg PO DAILY hydromorphone 2 mg Tablet 2 mg PO Q12H PRN (Reason: Pain) ascorbic acid (vitamin C) 500 mg Tablet 500 mg PO BID diphenhydramine HCl [Benadryl] 25 mg Capsule 25 mg PO TID PRN (Reason: Itching) nitroglycerin [Nitrostat] 0.4 mg Tablet, Sublingual 0.4 mg SUBLINGUAL Q5M PRN (Reason: Chest Pain) Rx Instructions: do not exceed 3 doses per episode docusate sodium 100 mg Capsule 100 mg PO DAILY metoprolol succinate 25 mg Tablet Extended Release 24 Hr 25 mg PO DAILY Santyl 250 unit/gram Ointment 1 appl TOPICAL BID B complex with C 20-folic acid 1 mg Capsule 1 cap PO DAILY Acidophilus Capsule 1 cap PO DAILY fluticasone propionate 50 mcg/actuation [place],Suspension 1 spray INTRANASAL DAILY Rx Instructions: administer into each nostril epoetin ciara 10,000 unit/mL Solution 10,000 unit IV TUTHSA Rx Instructions: Give during diaylsis oxycodone 5 mg Tablet 5 mg PO Q6H PRN (Reason: Pain) midodrine 10 mg Tablet 10 mg PO TUTHSA PRN (Reason: LOW BLOOD PRESSURE) Rx Instructions: GIVE DURING DIALYSIS IF LOW BP insulin lispro 100 unit/mL Insulin Pen 1 sliding scale dose SUBCUT QIDACHS ezetimibe 10 mg Tablet 10 mg PO DAILY cholestyramine (with sugar) 4 gram Powder 4 g PO BIDWM Rx Instructions: administer w/meal; avoid other meds within 1hr before or 4-6hr after dose fentanyl 12 mcg/hr Patch 72 Hour 1 patch TRANSDERMAL Q72H calcium carbonate-vitamin D3 600-125 mg-unit Tablet 1 tab PO DAILY Eliquis 5 mg tablet 1 tab PO BID Discharge Orders: Discharge Order (Routine); Ordered 07/13/22 Ordered By: Emmanuel Mayen Diet: Advance to usual diet Activity on Discharge: As tolerated Stand Alone Forms: Patient Portal Discharge page Care Plan Goals: Full recovery from sepsis Health Concerns: Sepsis due to decub ulcer, hyponatremia that is chronic, ESRD Plan of Treatment: To complete 6 weeks course of Meropenem and Zyvox continue dialysis as usual Assessment: as above
[2022-07-13 11:36] LABS: Glucose, Whole Blood 122 mg/dL (60-115)
--- NOTE | 2022-07-13 11:57 | PM.PNNEP ---
Subjective Subjective Date of Service: 07/19/22 Interval history: Events noted Pre HD Cr 2.1 Physical Exam Vital Signs: Vital Signs: Last Vital Signs Temp 97.6 F 07/13/22 11:08 Pulse 91 07/13/22 11:08 Resp 12 07/13/22 11:08 BP 107/56 L 07/13/22 11:08 Pulse Ox 95 07/13/22 11:08 O2 Del Method 07/13/22 11:08 BMI result Body Mass Index 25.0 Const: Orientation/consciousness: patient oriented x3 HEENT: Head: Yes normal to inspection Neck: Neck: Yes full ROM and Yes supple Resp: Auscultation: clear to auscultation bilaterally Cardio: Jugular venous distension: no JVD Heart sounds: no click, no murmurs and no rubs GI: Inspection: Yes other (Ostomy bag is present) Palpation (GI): Soft to palpation and nontender Auscultation: normal bowel sounds Neuro: General: patient oriented x3 Motor exam (neuro): no asterixis Objective Data Labs CBC & Chem 7: 07/17/22 10:09 07/17/22 10:09 Labs: Laboratory Results - last 24 hr 07/12/22 07/12/22 07/13/22 17:31 19:59 07:45 WBC RBC Hgb Hct MCV MCH MCHC RDW Plt Count MPV Immature Gran % (Auto) Neut % (Auto) Lymph % (Auto) [place] % (Auto) Eos % (Auto) Baso % (Auto) Lymph # (Auto) [place] # (Auto) Eos # (Auto) Baso # (Auto) Abs Immat Gran (auto) Absolute Neuts (auto) Absolute Nucleated RBC Nucleated RBC % (auto) Sodium Potassium Chloride Carbon Dioxide Anion Gap BUN Creatinine Estim Creat Clear Calc Estimated GFR POC Glucose 347 H 338 H 89 Random Glucose Calcium 07/13/22 07/13/22 07/13/22 09:48 09:48 11:33 WBC 15.0 H RBC 2.45 L Hgb 7.7 L Hct 23.8 L MCV 97.1 MCH 31.4 MCHC 32.4 RDW 17.2 H Plt Count 290 MPV 9.2 L Immature Gran % (Auto) 0.7 H Neut % (Auto) 86.7 H Lymph % (Auto) 5.1 L [place] % (Auto) 5.9 Eos % (Auto) 1.3 Baso % (Auto) 0.3 Lymph # (Auto) 0.8 L [place] # (Auto) 0.9 Eos # (Auto) 0.2 Baso # (Auto) 0.0 Abs Immat Gran (auto) 0.10 H Absolute Neuts (auto) 13.1 H Absolute Nucleated RBC 0.000 Nucleated RBC % (auto) 0.0 Sodium 125 L Potassium 3.3 Chloride 94 L Carbon Dioxide 24 Anion Gap 10 L BUN 41 H Creatinine 2.18 H Estim Creat Clear Calc 40.8 Estimated GFR 30 POC Glucose 122 H Random Glucose 129 H Calcium 7.1 L Microbiology Microbiology Results: Microbiology 07/11/22 06:35 Blood - Arterial Line Blood Culture - Preliminary No growth after 48 hours. 07/11/22 06:35 Blood - Arterial Line Blood Culture - Preliminary No growth after 48 hours. Procedures Date of Service Date of Service: 07/18/22 Assessment & Plan Assessment and plan (1) End stage renal disease: Status: Inactive Plan No s/s of uremia Fluid status acceptable HD today Mild hyponatremia Restrict PO water intake to 1.2 L per 24 hrs Anemia Epogen per protool Time Spent With Patient Time: Total time spent is greater than 50% in coordination of care (as documented) at patient's floor/unit and/or counseling patient: Progress Note: Quality Stroke Does the patient have a stroke diagnosis?: No
--- NOTE | 2022-07-13 14:17 | MHC.CM.PN ---
PER MD ROUNDS, MAY DC TODAY HOWEVER IS DUE FOR DIALYSIS NOW AND WON'T COMPLETE UNTIL LATE. PT/FAMILY UPDATED. CM WILL CONTINUE TO FOLLOW.
--- NOTE | 2022-07-13 15:01 | MHC.CM.PN ---
Addendum entered by Miri Velazquez 07/13/22 15:45: FAMILY REQUESTS NEW REFERRALS TO [facility]. REFERRALS SENT. FAMILY IS WILLING TO PAY FOR TRANSPORT TO DIALYSIS IF ACCEPTED. CM WILL CONTINUE TO FOLLOW FOR PLAN. Addendum entered by Miri Velazquez 07/13/22 15:12: PER DR. ANNE, DC WILL BE HELD, TRANSPORTATION CX, FAMILY AWARE. Original Note: DP:PT MEDICALLY CLEARED FOR DC BACK TO [facility] AFTER DIALYSIS. RN AWARE, FAMILY AWARE. BLS BOOKED FOR 7 PM WITH ANGELA.
--- NOTE | 2022-07-13 15:35 | HO.PM.IMPN ---
Subjective Subjective Date of Service: 07/13/22 Interval History: f/u on sepsis d/t decub osteo interval history: no new issues, pain controlled. Review of Systems no fever no chest pain no sob Physical Exam Vital Signs: Vital Signs: Last Vital Signs Temp 97.6 F 07/13/22 11:08 Pulse 91 07/13/22 11:08 Resp 12 07/13/22 11:08 BP 107/56 L 07/13/22 11:08 Pulse Ox 95 07/13/22 11:08 O2 Del Method 07/13/22 11:08 BMI result Body Mass Index 25.0 Objective Data Active Medications Acetaminophen (Acetaminophen 325 Mg Tablet) 650 mg PO Q6H PRN PRN Reason: Pain, Mild (Pain Scale 1-3) Apixaban (Apixaban 5 Mg Tablet) 5 mg PO BID [facility] Last Admin: 07/13/22 10:07 Dose: 5 mg Documented By: GAGANDEEP Ascorbic Acid (Ascorbic Acid 500 Mg Tablet) 500 mg PO BID [facility] Last Admin: 07/13/22 10:07 Dose: 500 mg Documented By: GAGANDEEP Aspirin (Aspirin Enteric Coated 81 Mg Tablet.Dr) 81 mg PO DAILY [facility] Last Admin: 07/13/22 10:06 Dose: 81 mg Documented By: GAGANDEEP Atorvastatin Calcium (Atorvastatin Calcium 80 Mg Tablet) 80 mg PO BEDTIME [facility] Last Admin: 07/12/22 21:18 Dose: 80 mg Documented By: ERIS Calcium Carbonate/Cholecalciferol (Calcium + Vitamin D 250 Mg Tablet) 500 mg PO DAILY [facility] Last Admin: 07/13/22 10:35 Dose: 500 mg Documented By: GAGANDEEP Cholestyramine Resin (Cholestyramine (With Sugar) 4 Gm Powd.Pack) 4 gm PO BIDWM [facility] Last Admin: 07/13/22 10:06 Dose: 4 gm Documented By: GAGANDEEP Diphenhydramine HCl (Diphenhydramine Hcl 25 Mg Capsule) 25 mg PO TID PRN PRN Reason: Itching Docusate Sodium (Docusate Sodium 100 Mg Capsule) 100 mg PO DAILY [facility] Last Admin: 07/13/22 10:07 Dose: 100 mg Documented By: GAGANDEEP Ezetimibe (Ezetimibe 10 Mg Tablet) 10 mg PO DAILY [facility] Last Admin: 07/13/22 10:07 Dose: 10 mg Documented By: GAGANDEEP Epoetin Wai (Epoetin Wai 10,000 Unit/Ml Vial) 10,000 unit SUBCUT TuThSa@1200 [facility] Fentanyl (Fentanyl 12 Mcg Patch.Td72) 12 mcg TRANSDERMA Q72H [facility] Last Admin: 07/13/22 10:04 Dose: 12 mcg Documented By: GAGANDEEP Fluticasone Propionate (Fluticasone Propionate Nasal 16 Gm [place]) 1 spray NOSTRIL-B DAILY [facility] Last Admin: 07/13/22 10:09 Dose: Not Given Documented By: GAGANDEEP Non-Admin Reason: Patient Refused Furosemide (Furosemide 20 Mg/2 Ml Vial) 20 mg IVPUSH BID@0900,1800 [facility]; Protocol Last Admin: 07/13/22 10:08 Dose: 20 mg Documented By: GAGANDEEP Hydromorphone HCl (Hydromorphone Hcl 2 Mg Tablet) 2 mg PO Q12H PRN PRN Reason: Pain, Severe (Pain Scale 7-10) Last Admin: 07/12/22 11:33 Dose: 2 mg Documented By: GAGANDEEP Meropenem 500 mg/ Sodium (Chloride) 50 mls @ 100 mls/hr IV Q24H [facility] Insulin Glargine (Insulin Glargine,Hum.Rec.Anlog 100 Unit/Ml 10 Ml Vial) 19 unit SUBCUT DAILY [facility] Last Admin: 07/13/22 10:35 Dose: 19 unit Documented By: GAGANDEEP Insulin Human Lispro (Insulin Lispro 100 Unit/Ml 3 Ml Vial) 0 unit SUBCUT QIDACHS [facility]; Protocol Last Admin: 07/13/22 12:52 Dose: Not Given Documented By: GAGANDEEP Non-Admin Reason: No Insulin Coverage Linezolid (Linezolid 600 Mg Tablet) 600 mg PO Q12H [facility] Melatonin (Melatonin 3 Mg Tablet) 3 mg PO BEDTIME [facility] Last Admin: 07/12/22 21:18 Dose: 3 mg Documented By: ERIS Metoprolol Succinate (Metoprolol Succinate Er 25 Mg Tab.Er.24h) 25 mg PO DAILY [facility]; Protocol Last Admin: 07/13/22 10:07 Dose: 25 mg Documented By: GAGANDEEP Midodrine (Midodrine Hcl 5 Mg Tablet) 5 mg PO TID@0900,1200,1800 [facility] Last Admin: 07/13/22 12:50 Dose: 5 mg Documented By: GAGANDEEP Midodrine (Midodrine Hcl 5 Mg Tablet) 5 mg PO TUTHSA@0900 [facility] Midodrine (Midodrine Hcl 5 Mg Tablet) 10 mg PO TuThSa PRN PRN Reason: LOW BLOOD PRESSURE Multivitamins/Vitamin C (Multivitamin Tablet) 1 tab PO DAILY [facility] Last Admin: 07/13/22 10:07 Dose: 1 tab Documented By: GAGANDEEP Nitroglycerin (Nitroglycerin 0.4 Mg Tab.Subl) 0.4 mg SUBLINGUAL Q5M PRN PRN Reason: Chest Pain Ondansetron HCl (Ondansetron Hcl 4 Mg/2 Ml Vial) 4 mg IVPUSH Q8H PRN PRN Reason: Nausea and Vomiting Oxycodone HCl (Oxycodone Hcl Immed Release 5 Mg Tablet) 5 mg PO Q6H PRN PRN Reason: Pain, Moderate (Pain Scale 4-6 Last Admin: 07/12/22 21:18 Dose: 5 mg Documented By: ERIS Pharmacy Consult (Consult Rx Perform Med Rec) 1 each MISCELLANE ONCE PRN PRN Reason: Consult order Pharmacy Consult (Consult Rx Vancomycin Dosing) 1 each MISCELLANE DAILY PRN PRN Reason: Consult order Primidone (Primidone 50 Mg Tablet) 50 mg PO BEDTIME [facility] Last Admin: 07/12/22 21:18 Dose: 50 mg Documented By: ERIS Senna (Sennosides 8.6 Mg Tablet) 17.2 mg PO DAILY [facility] Last Admin: 07/13/22 10:06 Dose: 17.2 mg Documented By: GAGANDEEP Sodium Chloride (0.9 % Sodium Chloride Flush 3 Ml Syringe) 3 ml IVFLUSH QSHIFT [facility] Last Admin: 07/13/22 10:36 Dose: 3 ml Documented By: GAGANDEEP Labs CBC & Chem 7: 07/13/22 09:48 07/13/22 09:48 Labs: Laboratory Results - last 24 hr 07/12/22 07/12/22 07/13/22 17:31 19:59 07:45 MCV MCH MCHC RDW Plt Count MPV Immature Gran % (Auto) Neut % (Auto) Lymph % (Auto) [place] % (Auto) Eos % (Auto) Baso % (Auto) Lymph # (Auto) [place] # (Auto) Eos # (Auto) Baso # (Auto) Abs Immat Gran (auto) Absolute Neuts (auto) Absolute Nucleated RBC Nucleated RBC % (auto) Anion Gap Estim Creat Clear Calc Estimated GFR POC Glucose 347 H 338 H 89 Random Glucose Calcium 07/13/22 07/13/22 07/13/22 09:48 09:48 11:33 MCV 97.1 MCH 31.4 MCHC 32.4 RDW 17.2 H Plt Count 290 MPV 9.2 L Immature Gran % (Auto) 0.7 H Neut % (Auto) 86.7 H Lymph % (Auto) 5.1 L [place] % (Auto) 5.9 Eos % (Auto) 1.3 Baso % (Auto) 0.3 Lymph # (Auto) 0.8 L [place] # (Auto) 0.9 Eos # (Auto) 0.2 Baso # (Auto) 0.0 Abs Immat Gran (auto) 0.10 H Absolute Neuts (auto) 13.1 H Absolute Nucleated RBC 0.000 Nucleated RBC % (auto) 0.0 Anion Gap 10 L Estim Creat Clear Calc 40.8 Estimated GFR 30 POC Glucose 122 H Random Glucose 129 H Calcium 7.1 L Microbiology Microbiology Results: Microbiology 07/11/22 06:35 Blood Culture - Preliminary Blood - Arterial Line No growth after 48 hours. 07/11/22 06:35 Blood Culture - Preliminary Blood - Arterial Line No growth after 48 hours. 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 Avina in [place] admitted for chest pain found to be septic with stage IV decubitus ulcer of the sacrum with osteomyelitis. #Probable sepsis- secondary to stage IV decubitus ulcer of the sacrum with osteomyelitis -leukocytosis has been chronic over the last few months secondary to osteomyelitis but remains elevated despite completing IV antibiotics at 13.0.? ID recommended IV meropenem and PO zyvox for 6 weeks. Clinically stable at moment. WBC is down to 15 and otherwise has no features of sepsis. #Stage IV decubitus ulcer sacrum- present on arrival, Seen by surgery and no indication for debridement, preventative measures with frequent turning, appropriate bed # ESRD--to continue usual schedule of dialysis (Monday, and Monday) # anasarca-secondary to ESRD--fluid removal at dialysis #Malnutrition with protein deficiency with protein deficiency--ensure # chest pain-resolved with no evidence of ACS #Permanent AFIB with RVR--likely from sepsis and required IV cardizem but now back on usual dose of Toprol and HR in 90s # hypotension-resolved -secondary to nitroglycerin administration, not septic shock -continue Midodrine # paroxysmal atrial fibrillation -initially RVR, rate now controlled following 2.5 mg push Lopressor in ED -BP soft, hold metoprolol -continue Eliquis for anticoagulation -admit to telemetry # coronary artery disease-chest pain resolved -continue ASA, Eliquis, atorvastatin.? Hold beta-willow due to soft blood pressure # insulin-dependent type 2 diabetes with hyperglycemia -POC glucose -diabetic diet -Humalog on sliding scale -dose adjusted Lantus 19 units daily #Chronic systolic heart failure -compensated -continue home meds #discoid lupus erythematous -continue home meds # generalized weakness need for inaptient: sepsis requiring IV Abx Quality Stroke Does the patient have a stroke diagnosis?: No VTE Prior VTE?: No VTE Risk Level:: Medical - moderate - high VTE Device Contraindication: Treatment Not Indicated VTE Drug Contraindication: N/A - Med Ordered
[2022-07-13 18:52] LABS: Glucose, Whole Blood 152 mg/dL (60-115)
[2022-07-13] MEDS: Insulin Lispro 100 UNIT/ML 3 ML VIAL SUBCUT (18:53)
--- NOTE | 2022-07-13 19:27 | PC.NURSE ---
per Md and rifle case repairer pt to stay overnight d.t dialysis and planned to be d/c'ed tomorrow. dressing change performed, md informed of wound bed. meds held per lightning rod erector, administered afterwards. Per lightning rod erector midodrine was held.
[2022-07-13 20:11] LABS: Glucose, Whole Blood 146 mg/dL (60-115)
[2022-07-13] MEDS: Atorvastatin Calcium 80 MG TABLET PO (20:14)
[2022-07-13] MEDS: Melatonin 3 MG TABLET PO (20:14)
[2022-07-13] MEDS: Primidone 50 MG TABLET PO (20:14)
[2022-07-14] MEDS: Linezolid 600 MG TABLET PO ×2 (03:18→15:02)
[2022-07-14] MEDS: HYDROmorphone HCl 2 MG TABLET PO ×2 (03:18→19:30)
[2022-07-14 03:21] VITALS: BP 95/62; PULSE 91; RESP 20; TEMP 36.7; O2SAT 98
[2022-07-14 06:48] LABS: MANUAL DIFF FLAG NO
[2022-07-14 06:55] LABS: Basophils Percent Auto 0.3 % (0-2); Eosinophils Absolute Auto 0.1 X10*3/uL (0.0-0.4); Eosinophils Percent Auto 1.1 % (0-4); Hematocrit 24.9 % (42.0-52.0); Hemoglobin 7.9 g/dl (14.0-18.0); Imm Gran Abs Auto 0.08 X10*3/uL (0.00-0.03); Imm Gran Pct Auto 0.7 % (0.0-0.4); Lymphocytes Absolute Auto 0.8 X10*3/uL (1.2-4.9); Lymphocytes Percent Auto 6.4 % (20-40); Mean Corpuscular HGB Conc 31.7 g/dl (31.0-36.0); Mean Corpuscular Hemoglobin 30.6 pg (27.0-33.0); Mean Corpuscular Volume 96.5 fL (80.0-98.0); Mean Platelet Volume 9.7 fL (9.4-12.4); Monocytes Absolute Auto 0.8 X10*3/uL (0.1-1.2); Monocytes Percent Auto 6.3 % (2-11); Neutrophils Absolute Auto 10.2 x10*3/uL (2.0-8.3); Neutrophils Percent Auto 85.2 % (45-73); Platelet Count 297 X10*3/uL (160-400); Red Blood Count 2.58 X10*6/uL (4.60-5.80); Red Cell Distribution Width 17.5 % (11.0-16.0)
[2022-07-14 07:19] VITALS: BP 96/55; PULSE 98; RESP 18; TEMP 36; O2SAT 94
[2022-07-14 07:28] LABS: Glucose, Whole Blood 277 mg/dL (60-115)
[2022-07-14 07:38] LABS: Anion Gap 12 (12-20); Blood Urea Nitrogen 34 mg/dL (9-16); Calcium 7.4 mg/dL (8.4-10.2); Carbon Dioxide 22 mmol/L (22-29); Chloride 97 mmol/L (96-108); Creatinine Clr Calc Pharmacy 45.6; Estimated Glomerular Filt Rate 34; Glucose Random 289 mg/dL (60-115); Potassium 3.6 mmol/L (3.3-5.1); Sodium 127 mmol/L (135-145)
[2022-07-14 08:00] VITALS: BP 116/67
--- NOTE | 2022-07-14 08:14 | P.PNNP_ITS ---
Subjective Subjective Date of Service: 07/14/22 Interval history: f/u on sepsis d/t decub osteo interval history: no new issues, pain controlled. Physical Exam Vital Signs: Vital Signs: Last Vital Signs Temp 96.8 F 07/14/22 07:19 Pulse 98 07/14/22 07:19 Resp 18 07/14/22 07:19 BP 96/55 L 07/14/22 07:19 Pulse Ox 94 07/14/22 07:19 O2 Del Method 07/14/22 07:19 BMI result Body Mass Index 25.0 Const: General: cooperative, comfortable and no acute distress Orientation/consciousness: patient oriented x3 HEENT: Head: Yes normal to inspection Face and sinus: Yes normal facial exam Mouth: Normal oral and palatal mucosa present Teeth and gingiva: dentition normal Eyes: General: appearance normal, both eyes and all related structures Pupils: Equal, round and reactive pupils present Neck: Neck: Yes full ROM, Yes no lymphadenopathy and Yes supple Resp: Effort & Inspection: normal respiratory effort Auscultation: clear to auscultation bilaterally Cardio: Jugular venous distension: no JVD Rate: regular rate and tachycardic Rhythm: regular rhythm Heart sounds: no click, no murmurs and no rubs GI: Inspection: Yes other (Ostomy bag is present) Palpation (GI): Soft to palpation, nontender and no guarding Auscultation: normal bowel sounds : General: Yes no CVA tenderness Back/Spine/Pelvis: Back: no CVA tenderness Skin: General skin exam: no rashes or lesions noted Neuro: General: patient oriented x3 and moves all extremities Cranial nerves: Yes Equal, round and reactive pupils present Motor exam (neuro): no asterixis Extrem: General: Yes normal to inspection Psych: Appearance: grossly normal Objective Data Labs CBC & Chem 7: 07/14/22 06:10 07/14/22 06:10 Labs: Laboratory Results - last 24 hr 07/13/22 07/13/22 07/13/22 07:45 09:48 09:48 WBC 15.0 H RBC 2.45 L Hgb 7.7 L Hct 23.8 L MCV 97.1 MCH 31.4 MCHC 32.4 RDW 17.2 H Plt Count 290 MPV 9.2 L Immature Gran % (Auto) 0.7 H Neut % (Auto) 86.7 H Lymph % (Auto) 5.1 L [place] % (Auto) 5.9 Eos % (Auto) 1.3 Baso % (Auto) 0.3 Lymph # (Auto) 0.8 L [place] # (Auto) 0.9 Eos # (Auto) 0.2 Baso # (Auto) 0.0 Abs Immat Gran (auto) 0.10 H Absolute Neuts (auto) 13.1 H Absolute Nucleated RBC 0.000 Nucleated RBC % (auto) 0.0 Sodium 125 L Potassium 3.3 Chloride 94 L Carbon Dioxide 24 Anion Gap 10 L BUN 41 H Creatinine 2.18 H Estim Creat Clear Calc 40.8 Estimated GFR 30 POC Glucose 89 Random Glucose 129 H Calcium 7.1 L Random Vancomycin 07/13/22 07/13/22 07/13/22 11:33 18:44 19:57 WBC RBC Hgb Hct MCV MCH MCHC RDW Plt Count MPV Immature Gran % (Auto) Neut % (Auto) Lymph % (Auto) [place] % (Auto) Eos % (Auto) Baso % (Auto) Lymph # (Auto) [place] # (Auto) Eos # (Auto) Baso # (Auto) Abs Immat Gran (auto) Absolute Neuts (auto) Absolute Nucleated RBC Nucleated RBC % (auto) Sodium Potassium Chloride Carbon Dioxide Anion Gap BUN Creatinine Estim Creat Clear Calc Estimated GFR POC Glucose 122 H 152 H Random Glucose Calcium Random Vancomycin 11.0 L 07/13/22 07/14/22 07/14/22 20:07 06:10 06:10 WBC 12.0 H RBC 2.58 L Hgb 7.9 L Hct 24.9 L MCV 96.5 MCH 30.6 MCHC 31.7 RDW 17.5 H Plt Count 297 MPV 9.7 Immature Gran % (Auto) 0.7 H Neut % (Auto) 85.2 H Lymph % (Auto) 6.4 L [place] % (Auto) 6.3 Eos % (Auto) 1.1 Baso % (Auto) 0.3 Lymph # (Auto) 0.8 L [place] # (Auto) 0.8 Eos # (Auto) 0.1 Baso # (Auto) 0.0 Abs Immat Gran (auto) 0.08 H Absolute Neuts (auto) 10.2 H Absolute Nucleated RBC 0.000 Nucleated RBC % (auto) 0.0 Sodium 127 L Potassium 3.6 Chloride 97 Carbon Dioxide 22 Anion Gap 12 BUN 34 H Creatinine 1.95 H Estim Creat Clear Calc 45.6 Estimated GFR 34 POC Glucose 146 H Random Glucose 289 H Calcium 7.4 L Random Vancomycin 07/14/22 07:24 WBC RBC Hgb Hct MCV MCH MCHC RDW Plt Count MPV Immature Gran % (Auto) Neut % (Auto) Lymph % (Auto) [place] % (Auto) Eos % (Auto) Baso % (Auto) Lymph # (Auto) [place] # (Auto) Eos # (Auto) Baso # (Auto) Abs Immat Gran (auto) Absolute Neuts (auto) Absolute Nucleated RBC Nucleated RBC % (auto) Sodium Potassium Chloride Carbon Dioxide Anion Gap BUN Creatinine Estim Creat Clear Calc Estimated GFR POC Glucose 277 H Random Glucose Calcium Random Vancomycin Microbiology Microbiology Results: Microbiology 07/11/22 06:35 Blood - Arterial Line Blood Culture - Preliminary No growth after 48 hours. 07/11/22 06:35 Blood - Arterial Line Blood Culture - Preliminary No growth after 48 hours. 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 Avina in ID admitted for chest pain found to be septic with stage IV decubitus ulcer of the sacrum with osteomyelitis. #Probable sepsis- secondary to stage IV decubitus ulcer of the sacrum with osteomyelitis -leukocytosis has been chronic over the last few months secondary to osteomyelitis but remains elevated despite completing IV antibiotics at 13.0.? ID recommended IV meropenem and PO zyvox for 6 weeks. Clinically stable at moment. WBC is down to 15 and otherwise has no features of sepsis. #Stage IV decubitus ulcer sacrum- present on arrival, Seen by surgery and no i ndication for debridement, preventative measures with frequent turning, appropriate bed # ESRD--next treatment is monday due to holiday schedule # Progress Note: Quality Stroke Does the patient have a stroke diagnosis?: No
[2022-07-14] MEDS: Insulin Lispro 100 UNIT/ML 3 ML VIAL SUBCUT ×4 (08:38→21:15)
[2022-07-14] MEDS: Insulin Glargine,Hum.rec.anlog 100 UNIT/ML 10 ML VIAL 19 UNIT SUBCUT (08:39)
[2022-07-14] MEDS: Sennosides 8.6 MG TABLET 17.2 MG PO (08:42)
[2022-07-14] MEDS: Docusate Sodium 100 MG CAPSULE PO (08:42)
[2022-07-14] MEDS: Apixaban 5 MG TABLET PO ×2 (08:42→21:15)
[2022-07-14] MEDS: Metoprolol Succinate ER 25 MG TAB.ER.24H PO (08:42)
[2022-07-14] MEDS: Multivitamin TABLET 1 TAB PO (08:42)
[2022-07-14] MEDS: Aspirin Enteric Coated 81 MG TABLET.DR PO (08:42)
[2022-07-14] MEDS: Midodrine HCl 5 MG TABLET PO ×2 (08:43→11:57)
[2022-07-14] MEDS: 0.9 % Sodium Chloride Flush 3 ML SYRINGE IVFLUSH ×2 (08:44→21:19)
[2022-07-14] MEDS: Ezetimibe 10 MG TABLET PO (08:46)
[2022-07-14] MEDS: Ascorbic Acid 500 MG TABLET PO ×2 (08:47→21:15)
[2022-07-14] MEDS: Furosemide 20 MG/2 ML VIAL IVPUSH ×2 (08:47→18:07)
[2022-07-14] MEDS: Calcium + Vitamin D 250 MG TABLET 500 MG PO (09:26)
[2022-07-14] MEDS: Cholestyramine (With Sugar) 4 GM POWD.PACK PO ×2 (09:27→16:07)
--- NOTE | 2022-07-14 09:36 | P.PNIM_ITS ---
Subjective Subjective Date of Service: 07/14/22 Interval History: f/u on sepsis d/t decub osteo interval history: no new issues, pain controlled. Review of Systems no fever no chest pain no sob Physical Exam Vital Signs: Vital Signs: Last Vital Signs Temp 96.8 F 07/14/22 07:19 Pulse 98 07/14/22 07:19 Resp 18 07/14/22 07:19 BP 116/67 07/14/22 08:00 Pulse Ox 94 07/14/22 07:19 O2 Del Method 07/14/22 07:19 BMI result Body Mass Index 25.0 Const: Other: General: AO X 3, no acute distress Resp: CTA bilateral CVS: S1,S2,RRR, some swelling in arms/legs GI: +BS, NT, no distention Skin: see pictures Neuro: motor grossly intact Psych: appropriate affect Objective Data Active Medications Acetaminophen (Acetaminophen 325 Mg Tablet) 650 mg PO Q6H PRN PRN Reason: Pain, Mild (Pain Scale 1-3) Apixaban (Apixaban 5 Mg Tablet) 5 mg PO BID [facility] Last Admin: 07/14/22 08:42 Dose: 5 mg Documented By: WHIT Ascorbic Acid (Ascorbic Acid 500 Mg Tablet) 500 mg PO BID [facility] Last Admin: 07/14/22 08:47 Dose: 500 mg Documented By: WHIT Aspirin (Aspirin Enteric Coated 81 Mg Tablet.) 81 mg PO DAILY [facility] Last Admin: 07/14/22 08:42 Dose: 81 mg Documented By: WHIT Atorvastatin Calcium (Atorvastatin Calcium 80 Mg Tablet) 80 mg PO BEDTIME [facility] Last Admin: 07/13/22 20:14 Dose: 80 mg Documented By: ISMAEL Calcium Carbonate/Cholecalciferol (Calcium + Vitamin D 250 Mg Tablet) 500 mg PO DAILY [facility] Last Admin: 07/14/22 09:26 Dose: 500 mg Documented By: WHIT Cholestyramine Resin (Cholestyramine (With Sugar) 4 Gm Powd.Pack) 4 gm PO BIDWM [facility] Last Admin: 07/14/22 09:27 Dose: 4 gm Documented By: WHIT Diphenhydramine HCl (Diphenhydramine Hcl 25 Mg Capsule) 25 mg PO TID PRN PRN Reason: Itching Docusate Sodium (Docusate Sodium 100 Mg Capsule) 100 mg PO DAILY [facility] Last Admin: 07/14/22 08:42 Dose: 100 mg Documented By: WHIT Ezetimibe (Ezetimibe 10 Mg Tablet) 10 mg PO DAILY [facility] Last Admin: 07/14/22 08:46 Dose: 10 mg Documented By: WHIT Epoetin Wai (Epoetin Wai 10,000 Unit/Ml Vial) 10,000 unit SUBCUT TuThSa@1200 [facility] Fentanyl (Fentanyl 12 Mcg Patch.Td72) 12 mcg TRANSDERMA Q72H [facility] Last Admin: 07/13/22 10:04 Dose: 12 mcg Documented By: GAGANDEEP Fluticasone Propionate (Fluticasone Propionate Nasal 16 Gm [place]) 1 spray NOSTRIL-B DAILY [facility] Last Admin: 07/14/22 09:28 Dose: Not Given Documented By: WHIT Non-Admin Reason: Patient Refused Furosemide (Furosemide 20 Mg/2 Ml Vial) 20 mg IVPUSH BID@0900,1800 [facility]; Protocol Last Admin: 07/14/22 08:47 Dose: 20 mg Documented By: WHIT Hydromorphone HCl (Hydromorphone Hcl 2 Mg Tablet) 2 mg PO Q12H PRN PRN Reason: Pain, Severe (Pain Scale 7-10) Last Admin: 07/14/22 03:18 Dose: 2 mg Documented By: ISMAEL Meropenem 500 mg/ Sodium (Chloride) 50 mls @ 100 mls/hr IV Q24H [facility] Last Infusion: 07/13/22 20:09 Dose: 0 mls/hr Documented By: ISMAEL Insulin Glargine (Insulin Glargine,Hum.Rec.Anlog 100 Unit/Ml 10 Ml Vial) 19 unit SUBCUT DAILY [facility] Last Admin: 07/14/22 08:39 Dose: 19 unit Documented By: WHIT Insulin Human Lispro (Insulin Lispro 100 Unit/Ml 3 Ml Vial) 0 unit SUBCUT QIDACHS [facility]; Protocol Last Admin: 07/14/22 08:38 Dose: 6 unit Documented By: WHIT Linezolid (Linezolid 600 Mg Tablet) 600 mg PO Q12H [facility] Last Admin: 07/14/22 03:18 Dose: 600 mg Documented By: ISMAEL Melatonin (Melatonin 3 Mg Tablet) 3 mg PO BEDTIME [facility] Last Admin: 07/13/22 20:14 Dose: 3 mg Documented By: ISMAEL Metoprolol Succinate (Metoprolol Succinate Er 25 Mg Tab.Er.24h) 25 mg PO DAILY [facility]; Protocol Last Admin: 07/14/22 08:42 Dose: 25 mg Documented By: WHIT Midodrine (Midodrine Hcl 5 Mg Tablet) 5 mg PO TID@0900,1200,1800 [facility] Last Admin: 07/14/22 08:43 Dose: 5 mg Documented By: WHIT Midodrine (Midodrine Hcl 5 Mg Tablet) 5 mg PO TUTHSA@0900 [facility] Midodrine (Midodrine Hcl 5 Mg Tablet) 10 mg PO TuThSa PRN PRN Reason: LOW BLOOD PRESSURE Multivitamins/Vitamin C (Multivitamin Tablet) 1 tab PO DAILY [facility] Last Admin: 07/14/22 08:42 Dose: 1 tab Documented By: WHIT Nitroglycerin (Nitroglycerin 0.4 Mg Tab.Subl) 0.4 mg SUBLINGUAL Q5M PRN PRN Reason: Chest Pain Ondansetron HCl (Ondansetron Hcl 4 Mg/2 Ml Vial) 4 mg IVPUSH Q8H PRN PRN Reason: Nausea and Vomiting Oxycodone HCl (Oxycodone Hcl Immed Release 5 Mg Tablet) 5 mg PO Q6H PRN PRN Reason: Pain, Moderate (Pain Scale 4-6 Last Admin: 07/12/22 21:18 Dose: 5 mg Documented By: ERIS Pharmacy Consult (Consult Rx Perform Med Rec) 1 each MISCELLANE ONCE PRN PRN Reason: Consult order Pharmacy Consult (Consult Rx Vancomycin Dosing) 1 each MISCELLANE DAILY PRN PRN Reason: Consult order Primidone (Primidone 50 Mg Tablet) 50 mg PO BEDTIME [facility] Last Admin: 07/13/22 20:14 Dose: 50 mg Documented By: ISMAEL Senna (Sennosides 8.6 Mg Tablet) 17.2 mg PO DAILY [facility] Last Admin: 07/14/22 08:42 Dose: 17.2 mg Documented By: WHIT Sodium Chloride (0.9 % Sodium Chloride Flush 3 Ml Syringe) 3 ml IVFLUSH QSHIFT [facility] Last Admin: 07/14/22 08:44 Dose: 3 ml Documented By: WHIT Labs CBC & Chem 7: 07/14/22 06:10 07/14/22 06:10 Labs: Laboratory Results - last 24 hr 07/13/22 07/13/22 07/13/22 09:48 09:48 11:33 MCV 97.1 MCH 31.4 MCHC 32.4 RDW 17.2 H Plt Count 290 MPV 9.2 L Immature Gran % (Auto) 0.7 H Neut % (Auto) 86.7 H Lymph % (Auto) 5.1 L [place] % (Auto) 5.9 Eos % (Auto) 1.3 Baso % (Auto) 0.3 Lymph # (Auto) 0.8 L [place] # (Auto) 0.9 Eos # (Auto) 0.2 Baso # (Auto) 0.0 Abs Immat Gran (auto) 0.10 H Absolute Neuts (auto) 13.1 H Absolute Nucleated RBC 0.000 Nucleated RBC % (auto) 0.0 Anion Gap 10 L Estim Creat Clear Calc 40.8 Estimated GFR 30 POC Glucose 122 H Random Glucose 129 H Calcium 7.1 L Random Vancomycin 07/13/22 07/13/22 07/13/22 18:44 19:57 20:07 MCV MCH MCHC RDW Plt Count MPV Immature Gran % (Auto) Neut % (Auto) Lymph % (Auto) [place] % (Auto) Eos % (Auto) Baso % (Auto) Lymph # (Auto) [place] # (Auto) Eos # (Auto) Baso # (Auto) Abs Immat Gran (auto) Absolute Neuts (auto) Absolute Nucleated RBC Nucleated RBC % (auto) Anion Gap Estim Creat Clear Calc Estimated GFR POC Glucose 152 H 146 H Random Glucose Calcium Random Vancomycin 11.0 L 07/14/22 07/14/22 07/14/22 06:10 06:10 07:24 MCV 96.5 MCH 30.6 MCHC 31.7 RDW 17.5 H Plt Count 297 MPV 9.7 Immature Gran % (Auto) 0.7 H Neut % (Auto) 85.2 H Lymph % (Auto) 6.4 L [place] % (Auto) 6.3 Eos % (Auto) 1.1 Baso % (Auto) 0.3 Lymph # (Auto) 0.8 L [place] # (Auto) 0.8 Eos # (Auto) 0.1 Baso # (Auto) 0.0 Abs Immat Gran (auto) 0.08 H Absolute Neuts (auto) 10.2 H Absolute Nucleated RBC 0.000 Nucleated RBC % (auto) 0.0 Anion Gap 12 Estim Creat Clear Calc 45.6 Estimated GFR 34 POC Glucose 277 H Random Glucose 289 H Calcium 7.4 L Random Vancomycin Microbiology Microbiology Results: Microbiology 07/11/22 06:35 Blood Culture - Preliminary Blood - Arterial Line No growth after 48 hours. 07/11/22 06:35 Blood Culture - Preliminary Blood - Arterial Line No growth after 48 hours. 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 Avina in ID admitted for chest pain found to be septic with stage IV decubitus ulcer of the sacrum with osteomyelitis. #Probable sepsis- secondary to stage IV decubitus ulcer of the sacrum with osteomyelitis -leukocytosis has been chronic over the last few months secondary to osteomyelitis but remains elevated despite completing IV antibiotics at 13.0.? ID recommended IV meropenem and PO zyvox for 6 weeks. Clinically stable at moment. WBC is down to 15 and otherwise has no features of sepsis. #Stage IV decubitus ulcer sacrum- present on arrival, Seen by surgery and no indication for debridement, preventative measures with frequent turning, appropriate bed. Surgery to reassess for need for debridment # ESRD--to continue usual schedule of dialysis (Monday, and Monday) # anasarca-secondary to ESRD--fluid removal at dialysis #Malnutrition with protein deficiency with protein deficiency--ensure # chest pain-resolved with no evidence of ACS #Permanent AFIB with RVR--likely from sepsis and required IV cardizem but now back on usual dose of Toprol and HR in 90s # hypotension-resolved -secondary to nitroglycerin administration, not septic shock -continue Midodrine # paroxysmal atrial fibrillation -initially RVR, rate now controlled following 2.5 mg push Lopressor in ED -BP soft, hold metoprolol -continue Eliquis for anticoagulation -admit to telemetry # coronary artery disease-chest pain resolved -continue ASA, Eliquis, atorvastatin.? Hold beta-willow due to soft blood pressure # insulin-dependent type 2 diabetes with hyperglycemia -POC glucose -diabetic diet -Humalog on sliding scale -dose adjusted Lantus 19 units daily #Chronic systolic heart failure -compensated -continue home meds #discoid lupus erythematous -continue home meds # generalized weakness need for inaptient: sepsis requiring IV Abx Quality Stroke Does the patient have a stroke diagnosis?: No VTE Prior VTE?: No VTE Risk Level:: Medical - moderate - high VTE Device Contraindication: Treatment Not Indicated VTE Drug Contraindication: N/A - Med Ordered
--- NOTE | 2022-07-14 10:05 | PM.PNGS ---
Subjective Subjective Date of Service: 07/14/22 Interval history: ostomy not functioning properly; Physical Exam Vital Signs: Vital Signs: Last Vital Signs Temp 96.8 F 07/14/22 07:19 Pulse 98 07/14/22 07:19 Resp 18 07/14/22 07:19 BP 116/67 07/14/22 08:00 Pulse Ox 94 07/14/22 07:19 O2 Del Method 07/14/22 07:19 BMI result Body Mass Index 25.0 Const: General: no acute distress Nutritional Appearance: thin Orientation/consciousness: patient oriented x3 Resp: Effort & Inspection: normal respiratory effort GI: Other: ostomy in LLQ with bowel wall edema, no stool noted in ostomy bag. Back/Spine/Pelvis: Other: dressing changed to sacral decubitus ulcer. Some granulation at the base of the wounds; rim of necrotic skin noted at right lateral margin. Necrotic skin and subcutaneous tissue measuring 4 x 1 cm debrided with a sharp scissors down to viable tissue. Wet to dry dressing applied followed by [place] Foam dressing. Neuro: General: patient oriented x3 Extrem: Other: 2+ pedal edema Objective Data Active Medications Acetaminophen (Acetaminophen 325 Mg Tablet) 650 mg PO Q6H PRN PRN Reason: Pain, Mild (Pain Scale 1-3) Apixaban (Apixaban 5 Mg Tablet) 5 mg PO BID [facility] Last Admin: 07/14/22 08:42 Dose: 5 mg Documented By: WHIT Ascorbic Acid (Ascorbic Acid 500 Mg Tablet) 500 mg PO BID [facility] Last Admin: 07/14/22 08:47 Dose: 500 mg Documented By: WHIT Aspirin (Aspirin Enteric Coated 81 Mg Tablet.) 81 mg PO DAILY [facility] Last Admin: 07/14/22 08:42 Dose: 81 mg Documented By: WHIT Atorvastatin Calcium (Atorvastatin Calcium 80 Mg Tablet) 80 mg PO BEDTIME [facility] Last Admin: 07/13/22 20:14 Dose: 80 mg Documented By: ISMAEL Calcium Carbonate/Cholecalciferol (Calcium + Vitamin D 250 Mg Tablet) 500 mg PO DAILY [facility] Last Admin: 07/14/22 09:26 Dose: 500 mg Documented By: WHIT Cholestyramine Resin (Cholestyramine (With Sugar) 4 Gm Powd.Pack) 4 gm PO BIDWM [facility] Last Admin: 07/14/22 09:27 Dose: 4 gm Documented By: WHIT Diphenhydramine HCl (Diphenhydramine Hcl 25 Mg Capsule) 25 mg PO TID PRN PRN Reason: Itching Docusate Sodium (Docusate Sodium 100 Mg Capsule) 100 mg PO DAILY [facility] Last Admin: 07/14/22 08:42 Dose: 100 mg Documented By: WHIT Ezetimibe (Ezetimibe 10 Mg Tablet) 10 mg PO DAILY [facility] Last Admin: 07/14/22 08:46 Dose: 10 mg Documented By: WHIT Epoetin Wai (Epoetin Wai 10,000 Unit/Ml Vial) 10,000 unit SUBCUT TuThSa@1200 [facility] Fentanyl (Fentanyl 12 Mcg Patch.Td72) 12 mcg TRANSDERMA Q72H [facility] Last Admin: 07/13/22 10:04 Dose: 12 mcg Documented By: GAGANDEEP Fluticasone Propionate (Fluticasone Propionate Nasal 16 Gm [place]) 1 spray NOSTRIL-B DAILY [facility] Last Admin: 07/14/22 09:28 Dose: Not Given Documented By: WHIT Non-Admin Reason: Patient Refused Furosemide (Furosemide 20 Mg/2 Ml Vial) 20 mg IVPUSH BID@0900,1800 [facility]; Protocol Last Admin: 07/14/22 08:47 Dose: 20 mg Documented By: WHIT Hydromorphone HCl (Hydromorphone Hcl 2 Mg Tablet) 2 mg PO Q12H PRN PRN Reason: Pain, Severe (Pain Scale 7-10) Last Admin: 07/14/22 03:18 Dose: 2 mg Documented By: ISMAEL Meropenem 500 mg/ Sodium (Chloride) 50 mls @ 100 mls/hr IV Q24H [facility] Last Infusion: 07/13/22 20:09 Dose: 0 mls/hr Documented By: ISMAEL Insulin Glargine (Insulin Glargine,Hum.Rec.Anlog 100 Unit/Ml 10 Ml Vial) 19 unit SUBCUT DAILY [facility] Last Admin: 07/14/22 08:39 Dose: 19 unit Documented By: WHIT Insulin Human Lispro (Insulin Lispro 100 Unit/Ml 3 Ml Vial) 0 unit SUBCUT QIDACHS [facility]; Protocol Last Admin: 07/14/22 08:38 Dose: 6 unit Documented By: WHIT Linezolid (Linezolid 600 Mg Tablet) 600 mg PO Q12H [facility] Last Admin: 07/14/22 03:18 Dose: 600 mg Documented By: ISMAEL Melatonin (Melatonin 3 Mg Tablet) 3 mg PO BEDTIME [facility] Last Admin: 07/13/22 20:14 Dose: 3 mg Documented By: ISMAEL Metoprolol Succinate (Metoprolol Succinate Er 25 Mg Tab.Er.24h) 25 mg PO DAILY [facility]; Protocol Last Admin: 07/14/22 08:42 Dose: 25 mg Documented By: WHIT Midodrine (Midodrine Hcl 5 Mg Tablet) 5 mg PO TID@0900,1200,1800 [facility] Last Admin: 07/14/22 08:43 Dose: 5 mg Documented By: WHIT Midodrine (Midodrine Hcl 5 Mg Tablet) 5 mg PO TUTHSA@0900 [facility] Midodrine (Midodrine Hcl 5 Mg Tablet) 10 mg PO TuThSa PRN PRN Reason: LOW BLOOD PRESSURE Multivitamins/Vitamin C (Multivitamin Tablet) 1 tab PO DAILY [facility] Last Admin: 07/14/22 08:42 Dose: 1 tab Documented By: WHIT Nitroglycerin (Nitroglycerin 0.4 Mg Tab.Subl) 0.4 mg SUBLINGUAL Q5M PRN PRN Reason: Chest Pain Ondansetron HCl (Ondansetron Hcl 4 Mg/2 Ml Vial) 4 mg IVPUSH Q8H PRN PRN Reason: Nausea and Vomiting Oxycodone HCl (Oxycodone Hcl Immed Release 5 Mg Tablet) 5 mg PO Q6H PRN PRN Reason: Pain, Moderate (Pain Scale 4-6 Last Admin: 07/12/22 21:18 Dose: 5 mg Documented By: ERIS Pharmacy Consult (Consult Rx Perform Med Rec) 1 each MISCELLANE ONCE PRN PRN Reason: Consult order Pharmacy Consult (Consult Rx Vancomycin Dosing) 1 each MISCELLANE DAILY PRN PRN Reason: Consult order Primidone (Primidone 50 Mg Tablet) 50 mg PO BEDTIME [facility] Last Admin: 07/13/22 20:14 Dose: 50 mg Documented By: ISMAEL Senna (Sennosides 8.6 Mg Tablet) 17.2 mg PO DAILY [facility] Last Admin: 07/14/22 08:42 Dose: 17.2 mg Documented By: WHIT Sodium Chloride (0.9 % Sodium Chloride Flush 3 Ml Syringe) 3 ml IVFLUSH QSHIFT [facility] Last Admin: 07/14/22 08:44 Dose: 3 ml Documented By: WHIT Labs CBC & Chem 7: 07/14/22 06:10 07/14/22 06:10 Labs: Laboratory Results - last 24 hr 07/13/22 07/13/22 07/13/22 09:48 11:33 18:44 MCV MCH MCHC RDW Plt Count MPV Immature Gran % (Auto) Neut % (Auto) Lymph % (Auto) [place] % (Auto) Eos % (Auto) Baso % (Auto) Lymph # (Auto) [place] # (Auto) Eos # (Auto) Baso # (Auto) Abs Immat Gran (auto) Absolute Neuts (auto) Absolute Nucleated RBC Nucleated RBC % (auto) Anion Gap 10 L Estim Creat Clear Calc 40.8 Estimated GFR 30 POC Glucose 122 H 152 H Random Glucose 129 H Calcium 7.1 L Random Vancomycin 07/13/22 07/13/22 07/14/22 19:57 20:07 06:10 MCV 96.5 MCH 30.6 MCHC 31.7 RDW 17.5 H Plt Count 297 MPV 9.7 Immature Gran % (Auto) 0.7 H Neut % (Auto) 85.2 H Lymph % (Auto) 6.4 L [place] % (Auto) 6.3 Eos % (Auto) 1.1 Baso % (Auto) 0.3 Lymph # (Auto) 0.8 L [place] # (Auto) 0.8 Eos # (Auto) 0.1 Baso # (Auto) 0.0 Abs Immat Gran (auto) 0.08 H Absolute Neuts (auto) 10.2 H Absolute Nucleated RBC 0.000 Nucleated RBC % (auto) 0.0 Anion Gap Estim Creat Clear Calc Estimated GFR POC Glucose 146 H Random Glucose Calcium Random Vancomycin 11.0 L 07/14/22 07/14/22 06:10 07:24 MCV MCH MCHC RDW Plt Count MPV Immature Gran % (Auto) Neut % (Auto) Lymph % (Auto) [place] % (Auto) Eos % (Auto) Baso % (Auto) Lymph # (Auto) [place] # (Auto) Eos # (Auto) Baso # (Auto) Abs Immat Gran (auto) Absolute Neuts (auto) Absolute Nucleated RBC Nucleated RBC % (auto) Anion Gap 12 Estim Creat Clear Calc 45.6 Estimated GFR 34 POC Glucose 277 H Random Glucose 289 H Calcium 7.4 L Random Vancomycin Microbiology Microbiology Results: Microbiology 07/11/22 06:35 Blood Culture - Preliminary Blood - Arterial Line No growth after 48 hours. 07/11/22 06:35 Blood Culture - Preliminary Blood - Arterial Line No growth after 48 hours. Procedures Date of Service Date of Service: 07/14/22 Progress Note: A&P Assessment and plan (1) Sacral decubitus ulcer: Status: Acute Plan Wounds examined and debrided as noted above. Continue local wound care. Ostomy noted to be edematous; no stool in appliance. Unable to clearly see mucosa on ostomy surface. Recommended evaluation with CT abd and pelvis. Time Spent With Patient Time: Total time spent is greater than 50% in coordination of care (as documented) at patient's floor/unit and/or counseling patient: Quality Stroke Does the patient have a stroke diagnosis?: No VTE Prior VTE?: No VTE Risk Level:: Medical - moderate - high VTE Device Contraindication: Treatment Not Indicated VTE Drug Contraindication: N/A - Med Ordered
[2022-07-14 11:42] VITALS: BP 114/72; PULSE 97; RESP 18; TEMP 36; O2SAT 100
[2022-07-14 11:49] LABS: Glucose, Whole Blood 293 mg/dL (60-115)
[2022-07-14 15:16] VITALS: BP 100/57; PULSE 86; RESP 18; TEMP 37.1; O2SAT 98
[2022-07-14 15:47] LABS: Glucose, Whole Blood 294 mg/dL (60-115)
[2022-07-14 19:46] VITALS: BP 110/65; PULSE 78; RESP 18; TEMP 37; O2SAT 98
[2022-07-14 19:48] LABS: Glucose, Whole Blood 323 mg/dL (60-115)
[2022-07-14] MEDS: Melatonin 3 MG TABLET PO (21:15)
[2022-07-14] MEDS: Atorvastatin Calcium 80 MG TABLET PO (21:15)
[2022-07-14] MEDS: Primidone 50 MG TABLET PO (21:15)
[2022-07-15] VITALS: BP 107/77; PULSE 106; RESP 14; TEMP 36.2; O2SAT 100
[2022-07-15] MEDS: Linezolid 600 MG TABLET PO ×2 (03:16→16:00)
[2022-07-15 03:32] VITALS: BP 101/70; PULSE 117; RESP 16; TEMP 36.3; O2SAT 100
[2022-07-15] MEDS: oxyCODONE HCl Immed Release 5 MG TABLET PO ×2 (03:38→17:22)
[2022-07-15 06:23] LABS: MANUAL DIFF FLAG NO
[2022-07-15 06:40] LABS: Basophils Percent Auto 0.3 % (0-2); Eosinophils Absolute Auto 0.2 X10*3/uL (0.0-0.4); Eosinophils Percent Auto 1.8 % (0-4); Hematocrit 24.6 % (42.0-52.0); Hemoglobin 7.9 g/dl (14.0-18.0); Imm Gran Abs Auto 0.09 X10*3/uL (0.00-0.03); Imm Gran Pct Auto 0.8 % (0.0-0.4); Lymphocytes Percent Auto 8.6 % (20-40); Mean Corpuscular HGB Conc 32.1 g/dl (31.0-36.0); Mean Corpuscular Hemoglobin 31.1 pg (27.0-33.0); Mean Corpuscular Volume 96.9 fL (80.0-98.0); Mean Platelet Volume 9.7 fL (9.4-12.4); Monocytes Absolute Auto 0.9 X10*3/uL (0.1-1.2); Monocytes Percent Auto 7.7 % (2-11); Neutrophils Absolute Auto 9.6 x10*3/uL (2.0-8.3); Neutrophils Percent Auto 80.8 % (45-73); Platelet Count 329 X10*3/uL (160-400); Red Blood Count 2.54 X10*6/uL (4.60-5.80); Red Cell Distribution Width 17.2 % (11.0-16.0); White Blood Count 11.9 X10*3/uL (4.8-10.8)
--- NOTE | 2022-07-15 06:44 | PC.NURSE ---
Pt said a doctor took his tele monitor and said he no longer needed to be on the monitor. I reached out to the hospitalist and she said it was fine for him to be off tele
[2022-07-15 07:27] VITALS: BP 111/76; PULSE 115; RESP 18; TEMP 36.3; O2SAT 90
[2022-07-15 07:47] LABS: Anion Gap 15 (12-20); Calcium 7.6 mg/dL (8.4-10.2); Carbon Dioxide 21 mmol/L (22-29); Chloride 95 mmol/L (96-108); Creatinine Clr Calc Pharmacy 38.4; Estimated Glomerular Filt Rate 28; Glucose Random 199 mg/dL (60-115); Sodium 127 mmol/L (135-145)
--- NOTE | 2022-07-15 07:58 | P.PNNP_ITS ---
Subjective Subjective Date of Service: 07/15/22 Interval history: f/u on sepsis d/t decub osteo interval history: no new issues, pain controlled. Physical Exam Vital Signs: Vital Signs: Last Vital Signs Temp 97.4 F 07/15/22 07:27 Pulse 115 H 07/15/22 07:27 Resp 18 07/15/22 07:27 BP 111/76 07/15/22 07:27 Pulse Ox 90 L 07/15/22 07:27 O2 Del Method 07/15/22 07:27 BMI result Body Mass Index 25.0 Const: Other: General: AO X 3, no acute distress Resp: CTA bilateral CVS: S1,S2,RRR, some swelling in arms/legs GI: +BS, NT, no distention Skin: see pictures Neuro: motor grossly intact Psych: appropriate affect General: cooperative, comfortable and no acute distress Nutritional Appearance: thin Orientation/consciousness: patient oriented x3 HEENT: Head: Yes normal to inspection Face and sinus: Yes normal facial exam Mouth: Normal oral and palatal mucosa present Teeth and gingiva: dentition normal Eyes: General: appearance normal, both eyes and all related structures Pupils: Equal, round and reactive pupils present Neck: Neck: Yes full ROM, Yes no lymphadenopathy and Yes supple Resp: Effort & Inspection: normal respiratory effort Auscultation: clear to auscultation bilaterally Cardio: Jugular venous distension: no JVD Rate: regular rate and tachycardic Rhythm: regular rhythm Heart sounds: no click, no murmurs and no rubs GI: Other: ostomy in LLQ with bowel wall edema, no stool noted in ostomy bag. Inspection: Yes other (Ostomy bag is present) Palpation (GI): Soft to palpation, nonte nder and no guarding Auscultation: normal bowel sounds : General: Yes no CVA tenderness Back/Spine/Pelvis: Other: dressing changed to sacral decubitus ulcer. Some granulation at the base of the wounds; rim of necrotic skin noted at right lateral margin. Necrotic skin and subcutaneous tissue measuring 4 x 1 cm debrided with a sharp scissors down to viable tissue. Wet to dry dressing applied followed by [employer] Foam dressing. Back: no CVA tenderness Skin: General skin exam: no rashes or lesions noted Neuro: General: patient oriented x3 and moves all extremities Cranial nerves: Yes Equal, round and reactive pupils present Motor exam (neuro): no asterixis Extrem: Other: 2+ pedal edema General: Yes normal to inspection Psych: Appearance: grossly normal Objective Data Labs CBC & Chem 7: 07/15/22 05:29 07/15/22 05:29 Labs: Laboratory Results - last 24 hr 07/14/22 07/14/22 07/14/22 11:42 15:10 19:34 WBC RBC Hgb Hct MCV MCH MCHC RDW Plt Count MPV Immature Gran % (Auto) Neut % (Auto) Lymph % (Auto) [place] % (Auto) Eos % (Auto) Baso % (Auto) Lymph # (Auto) [place] # (Auto) Eos # (Auto) Baso # (Auto) Abs Immat Gran (auto) Absolute Neuts (auto) Absolute Nucleated RBC Nucleated RBC % (auto) Sodium Potassium Chloride Carbon Dioxide Anion Gap Creatinine Estim Creat Clear Calc Estimated GFR POC Glucose 293 H 294 H 323 H Random Glucose Calcium 07/15/22 07/15/22 05:29 05:29 WBC 11.9 H RBC 2.54 L Hgb 7.9 L Hct 24.6 L MCV 96.9 MCH 31.1 MCHC 32.1 RDW 17.2 H Plt Count 329 MPV 9.7 Immature Gran % (Auto) 0.8 H Neut % (Auto) 80.8 H Lymph % (Auto) 8.6 L [place] % (Auto) 7.7 Eos % (Auto) 1.8 Baso % (Auto) 0.3 Lymph # (Auto) 1.0 L [place] # (Auto) 0.9 Eos # (Auto) 0.2 Baso # (Auto) 0.0 Abs Immat Gran (auto) 0.09 H Absolute Neuts (auto) 9.6 H Absolute Nucleated RBC 0.000 Nucleated RBC % (auto) 0.0 Sodium 127 L Potassium 4.0 Chloride 95 L Carbon Dioxide 21 L Anion Gap 15 Creatinine 2.32 H Estim Creat Clear Calc 38.4 Estimated GFR 28 POC Glucose Random Glucose 199 H Calcium 7.6 L Microbiology Microbiology Results: Microbiology 07/11/22 06:35 Blood - Arterial Line Blood Culture - Preliminary No growth after 48 hours. 07/11/22 06:35 Blood - Arterial Line Blood Culture - Preliminary No growth after 48 hours. Procedures Date of Service Date of Service: 07/15/22 Assessment & Plan Assessment and plan (1) Sacral decubitus ulcer: Status: Acute (2) End stage renal disease: Status: Acute Assessment and Plan: dialysis in am will check 24 hr creat cl to assess residual renal function Plan Wounds examined and debrided as noted above. Continue local wound care. Ostomy noted to be edematous; no stool in appliance. Unable to clearly see mucosa on ostomy surface. Recommended evaluation with CT abd and pelvis. Time Spent With Patient Time: Total time spent is greater than 50% in coordination of care (as documented) at patient's floor/unit and/or counseling patient: Progress Note: Quality Stroke Does the patient have a stroke diagnosis?: No
[2022-07-15 08:00] LABS: Blood Urea Nitrogen 53 mg/dL (9-16)
[2022-07-15 08:13] LABS: Glucose, Whole Blood 186 mg/dL (60-115)
[2022-07-15] MEDS: Sennosides 8.6 MG TABLET 17.2 MG PO (08:45)
[2022-07-15] MEDS: Docusate Sodium 100 MG CAPSULE PO (08:45)
[2022-07-15] MEDS: Calcium + Vitamin D 250 MG TABLET 500 MG PO (08:46)
[2022-07-15] MEDS: Aspirin Enteric Coated 81 MG TABLET.DR PO (08:46)
[2022-07-15] MEDS: Ascorbic Acid 500 MG TABLET PO ×2 (08:46→21:15)
[2022-07-15] MEDS: Apixaban 5 MG TABLET PO ×2 (08:46→21:15)
[2022-07-15] MEDS: Multivitamin TABLET 1 TAB PO (08:46)
[2022-07-15] MEDS: Ezetimibe 10 MG TABLET PO (08:47)
[2022-07-15] MEDS: Midodrine HCl 5 MG TABLET PO ×3 (08:47→17:04)
[2022-07-15] MEDS: Cholestyramine (With Sugar) 4 GM POWD.PACK PO ×2 (08:47→17:04)
[2022-07-15] MEDS: Furosemide 20 MG/2 ML VIAL IVPUSH ×2 (08:47→17:05)
[2022-07-15] MEDS: polyethylene glycoL 3350 17 GM POWD.PACK PO (08:47)
[2022-07-15] MEDS: Insulin Lispro 100 UNIT/ML 3 ML VIAL SUBCUT ×4 (08:48→21:20)
[2022-07-15] MEDS: Insulin Glargine,Hum.rec.anlog 100 UNIT/ML 10 ML VIAL 19 UNIT SUBCUT (08:48)
[2022-07-15] MEDS: 0.9 % Sodium Chloride Flush 3 ML SYRINGE IVFLUSH ×2 (08:49→16:00)
[2022-07-15] MEDS: Metoprolol Succinate ER 25 MG TAB.ER.24H PO (08:50)
--- NOTE | 2022-07-15 09:28 | P.PNGS_ITS ---
Subjective Subjective Date of Service: 07/15/22 Interval history: feels well denies abdl pain stoma with stools Physical Exam Vital Signs: Vital Signs: Last Vital Signs Temp 97.4 F 07/15/22 07:27 Pulse 115 H 07/15/22 07:27 Resp 18 07/15/22 07:27 BP 111/76 07/15/22 07:27 Pulse Ox 90 L 07/15/22 07:27 O2 Del Method 07/15/22 07:27 BMI result Body Mass Index 25.0 Const: General: comfortable and no acute distress Resp: Effort & Inspection: normal respiratory effort Cardio: Rate: regular rate GI: Other: stoma edematous but viable, with stools in bag Palpation (GI): Soft to palpation, not firm and nontender Objective Data Active Medications Acetaminophen (Acetaminophen 325 Mg Tablet) 650 mg PO Q6H PRN PRN Reason: Pain, Mild (Pain Scale 1-3) Apixaban (Apixaban 5 Mg Tablet) 5 mg PO BID [facility] Last Admin: 07/15/22 08:46 Dose: 5 mg Documented By: CESAR Ascorbic Acid (Ascorbic Acid 500 Mg Tablet) 500 mg PO BID [facility] Last Admin: 07/15/22 08:46 Dose: 500 mg Documented By: CESAR Aspirin (Aspirin Enteric Coated 81 Mg Tablet.) 81 mg PO DAILY [facility] Last Admin: 07/15/22 08:46 Dose: 81 mg Documented By: CESAR Atorvastatin Calcium (Atorvastatin Calcium 80 Mg Tablet) 80 mg PO BEDTIME [facility] Last Admin: 07/14/22 21:15 Dose: 80 mg Documented By: OPAL Calcium Carbonate/Cholecalciferol (Calcium + Vitamin D 250 Mg Tablet) 500 mg PO DAILY [facility] Last Admin: 07/15/22 08:46 Dose: 500 mg Documented By: CESAR Cholestyramine Resin (Cholestyramine (With Sugar) 4 Gm Powd.Pack) 4 gm PO BIDWM [facility] Last Admin: 07/15/22 08:47 Dose: 4 gm Documented By: CESAR Diphenhydramine HCl (Diphenhydramine Hcl 25 Mg Capsule) 25 mg PO TID PRN PRN Reason: Itching Docusate Sodium (Docusate Sodium 100 Mg Capsule) 100 mg PO DAILY [facility] Last Admin: 07/15/22 08:45 Dose: 100 mg Documented By: CESAR Ezetimibe (Ezetimibe 10 Mg Tablet) 10 mg PO DAILY [facility] Last Admin: 07/15/22 08:47 Dose: 10 mg Documented By: CESAR Epoetin Wai (Epoetin Wai 10,000 Unit/Ml Vial) 10,000 unit SUBCUT TuThSa@1200 [facility] Fentanyl (Fentanyl 12 Mcg Patch.Td72) 12 mcg TRANSDERMA Q72H [facility] Last Admin: 07/13/22 10:04 Dose: 12 mcg Documented By: GAGANDEEP Fluticasone Propionate (Fluticasone Propionate Nasal 16 Gm [place]) 1 spray NOSTRIL-B DAILY [facility] Last Admin: 07/14/22 09:28 Dose: Not Given Documented By: WHIT Non-Admin Reason: Patient Refused Furosemide (Furosemide 20 Mg/2 Ml Vial) 20 mg IVPUSH BID@0900,1800 [facility]; Protocol Last Admin: 07/15/22 08:47 Dose: 20 mg Documented By: CESAR Hydromorphone HCl (Hydromorphone Hcl 2 Mg Tablet) 2 mg PO Q12H PRN PRN Reason: Pain, Severe (Pain Scale 7-10) Last Admin: 07/14/22 19:30 Dose: 2 mg Documented By: OAPL Meropenem 500 mg/ Sodium (Chloride) 50 mls @ 100 mls/hr IV Q24H [facility] Last Infusion: 07/14/22 16:15 Dose: 100 mls/hr Documented By: WHIT Insulin Glargine (Insulin Glargine,Hum.Rec.Anlog 100 Unit/Ml 10 Ml Vial) 19 unit SUBCUT DAILY [facility] Last Admin: 07/15/22 08:48 Dose: 19 unit Documented By: CESAR Insulin Human Lispro (Insulin Lispro 100 Unit/Ml 3 Ml Vial) 0 unit SUBCUT QIDACHS [facility]; Protocol Last Admin: 07/15/22 08:48 Dose: 2 unit Documented By: CESAR Linezolid (Linezolid 600 Mg Tablet) 600 mg PO Q12H [facility] Last Admin: 07/15/22 03:16 Dose: 600 mg Documented By: OPAL Melatonin (Melatonin 3 Mg Tablet) 3 mg PO BEDTIME [facility] Last Admin: 07/14/22 21:15 Dose: 3 mg Documented By: OPAL Metoprolol Succinate (Metoprolol Succinate Er 25 Mg Tab.Er.24h) 25 mg PO DAILY [facility]; Protocol Last Admin: 07/15/22 08:50 Dose: 25 mg Documented By: CESAR Midodrine (Midodrine Hcl 5 Mg Tablet) 5 mg PO TID@0900,1200,1800 [facility] Last Admin: 07/15/22 08:47 Dose: 5 mg Documented By: CESAR Midodrine (Midodrine Hcl 5 Mg Tablet) 5 mg PO TUTHSA@0900 [facility] Midodrine (Midodrine Hcl 5 Mg Tablet) 10 mg PO TuThSa PRN PRN Reason: LOW BLOOD PRESSURE Multivitamins/Vitamin C (Multivitamin Tablet) 1 tab PO DAILY [facility] Last Admin: 07/15/22 08:46 Dose: 1 tab Documented By: CESAR Nitroglycerin (Nitroglycerin 0.4 Mg Tab.Subl) 0.4 mg SUBLINGUAL Q5M PRN PRN Reason: Chest Pain Ondansetron HCl (Ondansetron Hcl 4 Mg/2 Ml Vial) 4 mg IVPUSH Q8H PRN PRN Reason: Nausea and Vomiting Oxycodone HCl (Oxycodone Hcl Immed Release 5 Mg Tablet) 5 mg PO Q6H PRN PRN Reason: Pain, Moderate (Pain Scale 4-6 Last Admin: 07/15/22 03:38 Dose: 5 mg Documented By: OPAL Pharmacy Consult (Consult Rx Perform Med Rec) 1 each MISCELLANE ONCE PRN PRN Reason: Consult order Pharmacy Consult (Consult Rx Vancomycin Dosing) 1 each MISCELLANE DAILY PRN PRN Reason: Consult order Polyethylene Glycol (Polyethylene Glycol 3350 17 Gm Powd.Pack) 17 gm PO DAILY [facility] Last Admin: 07/15/22 08:47 Dose: 17 gm Documented By: CESAR Primidone (Primidone 50 Mg Tablet) 50 mg PO BEDTIME [facility] Last Admin: 07/14/22 21:15 Dose: 50 mg Documented By: OPAL Senna (Sennosides 8.6 Mg Tablet) 17.2 mg PO DAILY [facility] Last Admin: 07/15/22 08:45 Dose: 17.2 mg Documented By: CESAR Sodium Chloride (0.9 % Sodium Chloride Flush 3 Ml Syringe) 3 ml IVFLUSH QSHIFT [facility] Last Admin: 07/15/22 08:49 Dose: 3 ml Documented By: CESAR Labs CBC & Chem 7: 07/15/22 05:29 07/15/22 05:29 Labs: Laboratory Results - last 24 hr 07/14/22 07/14/22 07/14/22 11:42 15:10 19:34 MCV MCH MCHC RDW Plt Count MPV Immature Gran % (Auto) Neut % (Auto) Lymph % (Auto) [place] % (Auto) Eos % (Auto) Baso % (Auto) Lymph # (Auto) [place] # (Auto) Eos # (Auto) Baso # (Auto) Abs Immat Gran (auto) Absolute Neuts (auto) Absolute Nucleated RBC Nucleated RBC % (auto) Anion Gap Estim Creat Clear Calc Estimated GFR POC Glucose 293 H 294 H 323 H Random Glucose Calcium 07/15/22 07/15/22 07/15/22 05:29 05:29 07:26 MCV 96.9 MCH 31.1 MCHC 32.1 RDW 17.2 H Plt Count 329 MPV 9.7 Immature Gran % (Auto) 0.8 H Neut % (Auto) 80.8 H Lymph % (Auto) 8.6 L [place] % (Auto) 7.7 Eos % (Auto) 1.8 Baso % (Auto) 0.3 Lymph # (Auto) 1.0 L [place] # (Auto) 0.9 Eos # (Auto) 0.2 Baso # (Auto) 0.0 Abs Immat Gran (auto) 0.09 H Absolute Neuts (auto) 9.6 H Absolute Nucleated RBC 0.000 Nucleated RBC % (auto) 0.0 Anion Gap 15 Estim Creat Clear Calc 38.4 Estimated GFR 28 POC Glucose 186 H Random Glucose 199 H Calcium 7.6 L Laboratory Results WBC 11.9 X10*3/uL (4.8-10.8) H 07/15/22 05:29 RBC 2.54 X10*6/uL (4.60-5.80) L 07/15/22 05:29 Hgb 7.9 g/dl (14.0-18.0) L 07/15/22 05:29 Hct 24.6 % (42.0-52.0) L 07/15/22 05:29 MCV 96.9 fL (80.0-98.0) 07/15/22 05:29 MCH 31.1 pg (27.0-33.0) 07/15/22 05:29 MCHC 32.1 g/dl (31.0-36.0) 07/15/22 05:29 RDW 17.2 % (11.0-16.0) H 07/15/22 05:29 Plt Count 329 X10*3/uL (160-400) 07/15/22 05:29 MPV 9.7 fL (9.4-12.4) 07/15/22 05:29 Immature Gran % (Auto) 0.8 % (0.0-0.4) H 07/15/22 05:29 Neut % (Auto) 80.8 % (45-73) H 07/15/22 05:29 Lymph % (Auto) 8.6 % (20-40) L 07/15/22 05:29 [place] % (Auto) 7.7 % (2-11) 07/15/22 05:29 Eos % (Auto) 1.8 % (0-4) 07/15/22 05:29 Baso % (Auto) 0.3 % (0-2) 07/15/22 05:29 Lymph # (Auto) 1.0 X10*3/uL (1.2-4.9) L 07/15/22 05:29 [place] # (Auto) 0.9 X10*3/uL (0.1-1.2) 07/15/22 05:29 Eos # (Auto) 0.2 X10*3/uL (0.0-0.4) 07/15/22 05:29 Baso # (Auto) 0.0 X10*3/uL (0.0-0.2) 07/15/22 05:29 Abs Immat Gran (auto) 0.09 X10*3/uL (0.00-0.03) H 07/15/22 05:29 Absolute Neuts (auto) 9.6 x10*3/uL (2.0-8.3) H 07/15/22 05:29 Absolute Nucleated RBC 0.000 X10*3/uL (0.0-0.012) 07/15/22 05:29 Nucleated RBC % (auto) 0.0 /100WBC (0.0-0.2) 07/15/22 05:29 Sodium 127 mmol/L (135-145) L 07/15/22 05:29 Potassium 4.0 mmol/L (3.3-5.1) 07/15/22 05:29 Chloride 95 mmol/L (96-108) L 07/15/22 05:29 Carbon Dioxide 21 mmol/L (22-29) L 07/15/22 05:29 Anion Gap 15 (12-20) 07/15/22 05:29 BUN 53 mg/dL (9-16) H D 07/15/22 05:29 Creatinine 2.32 mg/dL (0.5-1.4) H 07/15/22 05:29 Estim Creat Clear Calc 38.4 07/15/22 05:29 Estimated GFR 28 07/15/22 05:29 POC Glucose 186 mg/dL (60-115) H 07/15/22 07:26 Random Glucose 199 mg/dL (60-115) H 07/15/22 05:29 Estimat Average Glucose 169 mg/dL 07/11/22 05:40 Hemoglobin A1c % 7.5 % 07/11/22 05:40 Lactic Acid 1.5 mmol/L (0.5-2.0) 07/11/22 20:10 Calcium 7.6 mg/dL (8.4-10.2) L 07/15/22 05:29 Total Bilirubin 0.3 mg/dL (0.0-1.0) 07/11/22 05:40 Direct Bilirubin 0.3 mg/dL (0.0-0.5) 07/11/22 05:40 AST 36 U/L (5-37) 07/11/22 05:40 ALT 22 U/L (0-40) 07/11/22 05:40 Alkaline Phosphatase 141 U/L (39-117) H 07/11/22 05:40 Troponin I High Sens 15.9 ng/L (<3.5-35.0) 07/11/22 07:58 C-Reactive Protein 7.83 mg/dL (< or = 0.50) H 07/11/22 05:40 Total Protein 5.1 g/dL (6.5-8.0) L 07/11/22 05:40 Albumin 1.8 g/dL (3.5-5.0) L 07/11/22 05:40 Random Vancomycin 11.0 mcg/mL (15-20) L 07/13/22 19:57 Acetone, Qual Negative (Negative) 07/11/22 05:40 COVID-19 (ESA) Negative (Negative) 07/11/22 08:17 COVID-19 Clin Com See Note 07/11/22 08:17 Impressions Chest X-Ray 07/11/22 06:05 IMPRESSION: 1. No acute pulmonary disease. 2. Support lines as above. Abdomen/Pelvis CT 07/14/22 13:13 IMPRESSION: -Normal caliber loops of small bowel with a moderate stool burden noted within the proximal and mid colon. Ostomy noted within the left lower abdomen. No CT evidence to suggest an obstructive picture. -Diffusely decreased liver attenuation suggesting hepatic steatosis. -Cholelithiasis. Fleischner guidelines were followed. Procedures Date of Service Date of Service: 07/15/22 Progress Note: A&P Assessment and plan (1) Sacral decubitus ulcer: Status: Acute Assessment and Plan: dressings had been changed by staff stoma edematous but funcitioning CT done - no obstruction or acute intraabdl process tolerating diet needs good wound care for decub ulcer, with regular position changes he also has a ffup with surgeon and stoma nurse in [facility] in 2 weeks he states he is being trnsferred back to [facility] today(?) Time Spent With Patient Time: Total time spent is greater than 50% in coordination of care (as documented) at patient's floor/unit and/or counseling patient: Quality Stroke Does the patient have a stroke diagnosis?: No VTE Prior VTE?: No VTE Risk Level:: Medical - moderate - high VTE Device Contraindication: Treatment Not Indicated VTE Drug Contraindication: N/A - Med Ordered
[2022-07-15] MEDS: HYDROmorphone HCl 2 MG TABLET PO (09:31)
--- NOTE | 2022-07-15 10:27 | HO.PM.IMPN ---
Subjective Subjective Date of Service: 07/15/22 Interval History: f/u on sepsis d/t decub osteo interval history: no new issues, pain controlled. intermittent tachycadia Review of Systems no fever no chest pain no sob Physical Exam Vital Signs: Vital Signs: Last Vital Signs Temp 97.4 F 07/15/22 07:27 Pulse 115 H 07/15/22 07:27 Resp 18 07/15/22 07:27 BP 111/76 07/15/22 07:27 Pulse Ox 90 L 07/15/22 07:27 O2 Del Method 07/15/22 07:27 BMI result Body Mass Index 25.0 Const: Other: General: AO X 3, no acute distress Resp: CTA bilateral CVS: S1,S2,RRR, some swelling in arms/legs GI: +BS, NT, no distention Skin: see pictures Neuro: motor grossly intact Psych: appropriate affect Objective Data Active Medications Acetaminophen (Acetaminophen 325 Mg Tablet) 650 mg PO Q6H PRN PRN Reason: Pain, Mild (Pain Scale 1-3) Apixaban (Apixaban 5 Mg Tablet) 5 mg PO BID [facility] Last Admin: 07/15/22 08:46 Dose: 5 mg Documented By: CESAR Ascorbic Acid (Ascorbic Acid 500 Mg Tablet) 500 mg PO BID [facility] Last Admin: 07/15/22 08:46 Dose: 500 mg Documented By: CESAR Aspirin (Aspirin Enteric Coated 81 Mg Tablet.) 81 mg PO DAILY [facility] Last Admin: 07/15/22 08:46 Dose: 81 mg Documented By: CESAR Atorvastatin Calcium (Atorvastatin Calcium 80 Mg Tablet) 80 mg PO BEDTIME [facility] Last Admin: 07/14/22 21:15 Dose: 80 mg Documented By: OPAL Calcium Carbonate/Cholecalciferol (Calcium + Vitamin D 250 Mg Tablet) 500 mg PO DAILY [facility] Last Admin: 07/15/22 08:46 Dose: 500 mg Documented By: CESAR Cholestyramine Resin (Cholestyramine (With Sugar) 4 Gm Powd.Pack) 4 gm PO BIDWM [facility] Last Admin: 07/15/22 08:47 Dose: 4 gm Documented By: CESAR Diphenhydramine HCl (Diphenhydramine Hcl 25 Mg Capsule) 25 mg PO TID PRN PRN Reason: Itching Docusate Sodium (Docusate Sodium 100 Mg Capsule) 100 mg PO DAILY [facility] Last Admin: 07/15/22 08:45 Dose: 100 mg Documented By: CESAR Ezetimibe (Ezetimibe 10 Mg Tablet) 10 mg PO DAILY [facility] Last Admin: 07/15/22 08:47 Dose: 10 mg Documented By: CESAR Epoetin Wai (Epoetin Wai 10,000 Unit/Ml Vial) 10,000 unit SUBCUT TuThSa@1200 [facility] Fentanyl (Fentanyl 12 Mcg Patch.Td72) 12 mcg TRANSDERMA Q72H [facility] Last Admin: 07/13/22 10:04 Dose: 12 mcg Documented By: GAGANDEEP Fluticasone Propionate (Fluticasone Propionate Nasal 16 Gm [place]) 1 spray NOSTRIL-B DAILY [facility] Last Admin: 07/14/22 09:28 Dose: Not Given Documented By: WHIT Non-Admin Reason: Patient Refused Furosemide (Furosemide 20 Mg/2 Ml Vial) 20 mg IVPUSH BID@0900,1800 [facility]; Protocol Last Admin: 07/15/22 08:47 Dose: 20 mg Documented By: CESAR Hydromorphone HCl (Hydromorphone Hcl 2 Mg Tablet) 2 mg PO Q12H PRN PRN Reason: Pain, Severe (Pain Scale 7-10) Last Admin: 07/15/22 09:31 Dose: 2 mg Documented By: CESAR Meropenem 500 mg/ Sodium (Chloride) 50 mls @ 100 mls/hr IV Q24H [facility] Last Infusion: 07/14/22 16:15 Dose: 100 mls/hr Documented By: WHIT Insulin Glargine (Insulin Glargine,Hum.Rec.Anlog 100 Unit/Ml 10 Ml Vial) 19 unit SUBCUT DAILY [facility] Last Admin: 07/15/22 08:48 Dose: 19 unit Documented By: CESAR Insulin Human Lispro (Insulin Lispro 100 Unit/Ml 3 Ml Vial) 0 unit SUBCUT QIDACHS [facility]; Protocol Last Admin: 07/15/22 08:48 Dose: 2 unit Documented By: CESAR Linezolid (Linezolid 600 Mg Tablet) 600 mg PO Q12H [facility] Last Admin: 07/15/22 03:16 Dose: 600 mg Documented By: OPAL Melatonin (Melatonin 3 Mg Tablet) 3 mg PO BEDTIME [facility] Last Admin: 07/14/22 21:15 Dose: 3 mg Documented By: OPAL Metoprolol Succinate (Metoprolol Succinate Er 25 Mg Tab.Er.24h) 25 mg PO DAILY [facility]; Protocol Last Admin: 07/15/22 08:50 Dose: 25 mg Documented By: CESAR Midodrine (Midodrine Hcl 5 Mg Tablet) 5 mg PO TID@0900,1200,1800 [facility] Last Admin: 07/15/22 08:47 Dose: 5 mg Documented By: CESAR Midodrine (Midodrine Hcl 5 Mg Tablet) 5 mg PO TUTHSA@0900 [facility] Midodrine (Midodrine Hcl 5 Mg Tablet) 10 mg PO TuThSa PRN PRN Reason: LOW BLOOD PRESSURE Multivitamins/Vitamin C (Multivitamin Tablet) 1 tab PO DAILY [facility] Last Admin: 07/15/22 08:46 Dose: 1 tab Documented By: CESAR Nitroglycerin (Nitroglycerin 0.4 Mg Tab.Subl) 0.4 mg SUBLINGUAL Q5M PRN PRN Reason: Chest Pain Ondansetron HCl (Ondansetron Hcl 4 Mg/2 Ml Vial) 4 mg IVPUSH Q8H PRN PRN Reason: Nausea and Vomiting Oxycodone HCl (Oxycodone Hcl Immed Release 5 Mg Tablet) 5 mg PO Q6H PRN PRN Reason: Pain, Moderate (Pain Scale 4-6 Last Admin: 07/15/22 03:38 Dose: 5 mg Documented By: OPAL Pharmacy Consult (Consult Rx Perform Med Rec) 1 each MISCELLANE ONCE PRN PRN Reason: Consult order Pharmacy Consult (Consult Rx Vancomycin Dosing) 1 each MISCELLANE DAILY PRN PRN Reason: Consult order Polyethylene Glycol (Polyethylene Glycol 3350 17 Gm Powd.Pack) 17 gm PO DAILY [facility] Last Admin: 07/15/22 08:47 Dose: 17 gm Documented By: CESAR Primidone (Primidone 50 Mg Tablet) 50 mg PO BEDTIME [facility] Last Admin: 07/14/22 21:15 Dose: 50 mg Documented By: OPAL Senna (Sennosides 8.6 Mg Tablet) 17.2 mg PO DAILY [facility] Last Admin: 07/15/22 08:45 Dose: 17.2 mg Documented By: CESAR Sodium Chloride (0.9 % Sodium Chloride Flush 3 Ml Syringe) 3 ml IVFLUSH QSHIFT [facility] Last Admin: 07/15/22 08:49 Dose: 3 ml Documented By: CESAR Labs CBC & Chem 7: 07/15/22 05:29 07/15/22 05:29 Labs: Laboratory Results - last 24 hr 07/14/22 07/14/22 07/14/22 11:42 15:10 19:34 MCV MCH MCHC RDW Plt Count MPV Immature Gran % (Auto) Neut % (Auto) Lymph % (Auto) [place] % (Auto) Eos % (Auto) Baso % (Auto) Lymph # (Auto) [place] # (Auto) Eos # (Auto) Baso # (Auto) Abs Immat Gran (auto) Absolute Neuts (auto) Absolute Nucleated RBC Nucleated RBC % (auto) Anion Gap Estim Creat Clear Calc Estimated GFR POC Glucose 293 H 294 H 323 H Random Glucose Calcium 07/15/22 07/15/22 07/15/22 05:29 05:29 07:26 MCV 96.9 MCH 31.1 MCHC 32.1 RDW 17.2 H Plt Count 329 MPV 9.7 Immature Gran % (Auto) 0.8 H Neut % (Auto) 80.8 H Lymph % (Auto) 8.6 L [place] % (Auto) 7.7 Eos % (Auto) 1.8 Baso % (Auto) 0.3 Lymph # (Auto) 1.0 L [place] # (Auto) 0.9 Eos # (Auto) 0.2 Baso # (Auto) 0.0 Abs Immat Gran (auto) 0.09 H Absolute Neuts (auto) 9.6 H Absolute Nucleated RBC 0.000 Nucleated RBC % (auto) 0.0 Anion Gap 15 Estim Creat Clear Calc 38.4 Estimated GFR 28 POC Glucose 186 H Random Glucose 199 H Calcium 7.6 L Assessment and Plan (1) Sacral decubitus ulcer: Status: Acute (2) Sepsis: Status: Acute (3) End stage renal disease: Status: Acute Plan 59-year-old male with history of hyperlipidemia, insulin-dependent type 2 diabetes, orthostatic hypotension, ESRD on dialysis T//Mon following with Milton Saab, essential tremor, coronary artery disease s/p CABG 12 years ago, chronic systolic heart failure, 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 Avina in ID admitted for chest pain found to be septic with stage IV decubitus ulcer of the sacrum with osteomyelitis. #Sepsis- secondary to stage IV decubitus ulcer of the sacrum with osteomyelitis -leukocytosis has been chronic over the last few months secondary to osteomyelitis but remains elevated despite completing IV antibiotics at 13.0.? ID recommended IV meropenem and PO zyvox for 6 weeks. Clinically stable at moment. WBC is down to 15 and otherwise has no features of sepsis. #Stage IV decubitus ulcer sacrum- present on arrival, Seen by surgery an s/p debridement, preventative measures with frequent turning, appropriate bed. Surgery to reassess for need for debridment # ESRD--to continue usual schedule of dialysis (Monday, and Monday) # anasarca-secondary to ESRD--fluid removal at dialysis #Malnutrition with protein deficiency with protein deficiency--ensure # chest pain-resolved with no evidence of ACS #Permanent AFIB with RVR--likely from sepsis and required IV cardizem but now back on usual dose of Toprol and HR in 90s # hypotension-resolved -secondary to nitroglycerin administration, not septic shock -continue Midodrine # paroxysmal atrial fibrillation -initially RVR, rate now controlled following 2.5 mg push Lopressor in ED -BP soft, hold metoprolol -continue Eliquis for anticoagulation -admit to telemetry # coronary artery disease-chest pain resolved -continue ASA, Eliquis, atorvastatin.? Hold beta-willow due to soft blood pressure # insulin-dependent type 2 diabetes with hyperglycemia -POC glucose -diabetic diet -Humalog on sliding scale -dose adjusted Lantus 19 units daily #Chronic systolic heart failure -compensated -continue home meds #discoid lupus erythematous -continue home meds # generalized weakness # Constipation as seeen on CT--add Miralax need for inaptient: sepsis requiring IV Abx Quality Stroke Does the patient have a stroke diagnosis?: No VTE Prior VTE?: No VTE Risk Level:: Medical - moderate - high VTE Device Contraindication: Treatment Not Indicated VTE Drug Contraindication: N/A - Med Ordered
[2022-07-15 11:23] VITALS: BP 114/73; PULSE 90; RESP 14; TEMP 36.3; O2SAT 99
[2022-07-15 11:30] LABS: Glucose, Whole Blood 227 mg/dL (60-115)
--- NOTE | 2022-07-15 13:20 | MHC.CLN ---
F/U DIET RX: 2200DM 1500ML FR-APPROPRIATE PT RECEIVING ENSURE BID AND ANITA BID TO INCREASE KCALS AND PROMOTE WOUND HEALING INTAKE APPEARS VERY GOOD WITH MANY MEALS 10%. MONITOR PO INTAKE CLOSELY
[2022-07-15 16:00] VITALS: BP 116/65; PULSE 90; RESP 17; TEMP 36.2; O2SAT 93
--- NOTE | 2022-07-15 16:09 | MHC.CM.PN ---
CM SPOKE TO PTS SISTER, VLADISLAV [phone] MULTIPLE TIMES THROUGHOUT THE DAY SHE REPORTS THEY DO NOT WANT THE PT TO RETURN TO [facility] BECAUSE THEY DO NOT FEEL THEY CAN MANAGE HIS CARE SHE IS AWARE THERE ARE ONLY TWO SNFS IN THE AREA WITH HD AND ASKS THAT REFERRALS BE SENT FARTHER OUT REFERRALS SENT TO ALL HD EQUIPPED SNFS IN A 50 MILE RANGE, ALL HAVE DECLINED, MOST SAYING THEY CANNOT MANAGE HIS CARE CM CALLED VLADISLAV AGAIN. SHE STATES SHE FINDS IT CONCERNING THAT THESE OTHER SNFS SAY THEY CANNOT MANAGE HIM, BUT [facility] SAYS THEY CAN-EVEN THOUGH SHE FEELS IT IS OBVIOUS THEY CANNOT. SHE REQUESTS ANOTHER REFERRAL TO [facility]-IT WAS UPDATED AND SENT WITH THE NOTICE THAT PTS SISTER IS WORKING ON A NEW HD SPOT IN [place] AND TRANSPORTATION -THEY AGAIN DECLINED VLADISLAV SAYS SHE KNOWS RESOURCES ARE LIMITED AND ONCE ALL OPTIONS ARE EXHAUSTED, CM MAY HAVE TO SEND PT BACK TO [facility], BUT SHE WANTS TO GO ON RECORD SAYING, IT IS LUDICROUS THAT THE PT KEEPS BEING SENT BACK TO A SNF WHERE HE KEEPS COMING BACK FROM IN CRITICAL CONDITION . PTS MEDICARE RIGHTS WERE DISCUSSED WITH HER, HOWEVER SHE REPORTS SHE HAS APPEALED IN THE PAST AND DOES NOT FEEL IT IS HELPFUL SHE ASKS THAT A REFERRAL BE MADE TO [facility] -REFERRAL MADE PER DISCUSSION WITH [facility] AND PTS SISTER, HE WILL DISCHARGE TOMORROW SISTER IS AWARE HE WILL DISCHARGE TO [facility] IF [facility] DOES NOT OFFER A BED.
[2022-07-15 16:45] LABS: Glucose, Whole Blood 157 mg/dL (60-115)
[2022-07-15 20:00] VITALS: BP 135/75; PULSE 103; RESP 18; TEMP 36.3; O2SAT 100
[2022-07-15 20:15] LABS: Glucose, Whole Blood 164 mg/dL (60-115)
[2022-07-15] MEDS: Melatonin 3 MG TABLET PO (21:15)
[2022-07-15] MEDS: Primidone 50 MG TABLET PO (21:15)
[2022-07-15] MEDS: Atorvastatin Calcium 80 MG TABLET PO (21:15)
[2022-07-16] VITALS: BP 148/82; PULSE 115; RESP 17; TEMP 36.9; O2SAT 99
[2022-07-16] MEDS: 0.9 % Sodium Chloride Flush 3 ML SYRINGE IVFLUSH ×3 (00:43→23:21)
[2022-07-16] MEDS: Linezolid 600 MG TABLET PO ×2 (02:42→14:31)
[2022-07-16 04:00] VITALS: BP 110/74; PULSE 78; RESP 16; TEMP 37.1; O2SAT 100
--- NOTE | 2022-07-16 07:29 | W.PM.DNNEP ---
Subjective Subjective This patient was seen during dialysis. Interval history: f/u on sepsis d/t decub osteo interval history: no new issues, pain controlled. intermittent tachycadia Physical Exam Vital Signs: Vital Signs: Last Vital Signs Temp 98.8 F 07/16/22 04:00 Pulse 78 07/16/22 04:00 Resp 16 07/16/22 04:00 BP 110/74 07/16/22 04:00 Pulse Ox 100 07/16/22 04:00 O2 Del Method 07/16/22 04:00 BMI result Body Mass Index 25.0 Const: Other: General: AO X 3, no acute distress Resp: CTA bilateral CVS: S1,S2,RRR, some swelling in arms/legs GI: +BS, NT, no distention Skin: see pictures Neuro: motor grossly intact Psych: appropriate affect General: cooperative, comfortable and no acute distress Nutritional Appearance: thin Orientation/consciousness: patient oriented x3 HEENT: Head: Yes normal to inspection Face and sinus: Yes normal facial exam Mouth: Normal oral and palatal mucosa present Teeth and gingiva: dentition normal Eyes: General: appearance normal, both eyes and all related structures Pupils: Equal, round and reactive pupils present Neck: Neck: Yes full ROM, Yes no lymphadenopathy and Yes supple Resp: Effort & Inspection: normal respiratory effort Auscultation: clear to auscultation bilaterally Cardio: Jugular venous distension: no JVD Rate: regular rate and tachycardic Rhythm: regular rhythm Heart sounds: no click, no murmurs and no rubs GI: Other: colostomy on left, edematous but viable Inspection: Yes other (Ostomy bag is present) Palpation (GI): Soft to palpation, not firm, nontender and no guarding Auscultation: normal bowel sounds : General: Yes no CVA tenderness Back/Spine/Pelvis: Other: dressing changed to sacral decubitus ulcer. Some granulation at the base of the wounds; rim of necrotic skin noted at right lateral margin. Necrotic skin and subcutaneous tissue measuring 4 x 1 cm debrided with a sharp scissors down to viable tissue. Wet to dry dressing applied followed by [place] Foam dressing. Back: no CVA tenderness Skin: General skin exam: no rashes or lesions noted Neuro: General: patient oriented x3 and moves all extremities Cranial nerves: Yes Equal, round and reactive pupils present Motor exam (neuro): no asterixis Extrem: Other: 2+ pedal edema General: Yes normal to inspection Psych: Appearance: grossly normal Assessment & Plan Assessment and plan (1) Sacral decubitus ulcer: Status: Acute (2) Sepsis: Status: Acute (3) End stage renal disease: Status: Acute Assessment and Plan: 24 hr creat cl pending to assess residual GFR Plan 59-year-old male with history of hyperlipidemia, insulin-dependent type 2 diabetes, orthostatic hypotension, ESRD on dialysis T//Mon following with [facility] Saab, essential tremor, coronary artery disease s/p CABG 12 years ago, chronic systolic heart failure, 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 Avina in ID admitted for chest pain found to be septic with stage IV decubitus ulcer of the sacrum with osteomyelitis. #Sepsis- secondary to stage IV decubitus ulcer of the sacrum with osteomyelitis -leukocytosis has been chronic over the last few months secondary to osteomyelitis but remains elevated despite completing IV antibiotics at 13.0.? ID recommended IV meropenem and PO zyvox for 6 weeks. Clinically stable at moment. WBC is down to 15 and otherwise has no features of sepsis. #Stage IV decubitus ulcer sacrum- present on arrival, Seen by surgery an s/p debridement, preventative measures with frequent turning, appropriate bed. Surgery to reassess for need for debridment # ESRD--to continue usual schedule of dialysis (Monday, and Monday) # anasarca-secondary to ESRD--fluid removal at dialysis #Malnutrition with protein deficiency with protein deficiency--ensure # chest pain-resolved with no evidence of ACS #Permanent AFIB with RVR--likely from sepsis and required IV cardizem but now back on usual dose of Toprol and HR in 90s # hypotension-resolved -secondary to nitroglycerin administration, not septic shock -continue Midodrine # paroxysmal atrial fibrillation -initially RVR, rate now controlled following 2.5 mg push Lopressor in ED -BP soft, hold metoprolol -continue Eliquis for anticoagulation -admit to telemetry # coronary artery disease-chest pain resolved -continue ASA, Eliquis, atorvastatin.? Hold beta-willow due to soft blood pressure # insulin-dependent type 2 diabetes with hyperglycemia -POC glucose -diabetic diet -Humalog on sliding scale -dose adjusted Lantus 19 units daily #Chronic systolic heart failure -compensated -continue home meds #discoid lupus erythematous -continue home meds # generalized weakness # Constipation as seeen on CT--add Miralax need for inaptient: sepsis requiring IV Abx Procedures Date of Service Date of Service: 07/16/22
--- NOTE | 2022-07-16 07:30 | PC.NURSE ---
Assumed care of patient at this time. Patient is out of room and at dialysis per previous report from nurse FELIPE Gibson.
--- NOTE | 2022-07-16 10:13 | MHC.CM.PN ---
prasad stevens todayat 1:30 to olga angel
--- NOTE | 2022-07-16 10:30 | PC.NURSE ---
Patient back from dialysis at this time.
[2022-07-16 11:38] VITALS: BP 124/71; PULSE 98; RESP 18; TEMP 36.5; O2SAT 100
[2022-07-16] MEDS: Aspirin Enteric Coated 81 MG TABLET.DR PO (11:47)
[2022-07-16] MEDS: Calcium + Vitamin D 250 MG TABLET 500 MG PO (11:48)
[2022-07-16] MEDS: Sennosides 8.6 MG TABLET 17.2 MG PO (11:48)
[2022-07-16] MEDS: Multivitamin TABLET 1 TAB PO (11:48)
[2022-07-16] MEDS: polyethylene glycoL 3350 17 GM POWD.PACK PO (11:48)
[2022-07-16] MEDS: Ezetimibe 10 MG TABLET PO (11:49)
[2022-07-16] MEDS: Ascorbic Acid 500 MG TABLET PO ×2 (11:49→22:07)
[2022-07-16] MEDS: Furosemide 20 MG/2 ML VIAL IVPUSH ×2 (11:49→16:59)
[2022-07-16] MEDS: Docusate Sodium 100 MG CAPSULE PO (11:49)
[2022-07-16] MEDS: Midodrine HCl 5 MG TABLET PO ×3 (11:49→16:59)
[2022-07-16] MEDS: fentaNYL 12 MCG PATCH.TD72 TRANSDERMA (11:50)
[2022-07-16] MEDS: Insulin Glargine,Hum.rec.anlog 100 UNIT/ML 10 ML VIAL 19 UNIT SUBCUT (11:50)
[2022-07-16 11:52] LABS: Glucose, Whole Blood 180 mg/dL (60-115)
[2022-07-16] MEDS: Insulin Lispro 100 UNIT/ML 3 ML VIAL SUBCUT ×3 (12:37→22:07)
[2022-07-16] MEDS: Acetaminophen 325 MG TABLET 650 MG PO (14:31)
--- NOTE | 2022-07-16 14:34 | P.PNGS_ITS ---
Subjective Subjective Date of Service: 07/16/22 Interval history: no new complaints does have pain on the back stoma functioning Physical Exam Vital Signs: Vital Signs: Last Vital Signs Temp 97.7 F 07/16/22 11:38 Pulse 98 07/16/22 11:38 Resp 18 07/16/22 11:38 BP 124/71 07/16/22 11:38 Pulse Ox 100 07/16/22 11:38 O2 Del Method 07/16/22 11:38 BMI result Body Mass Index 25.0 Const: General: no acute distress Resp: Effort & Inspection: normal respiratory effort Cardio: Rate: regular rate GI: Other: soft, colostomy functioning, edematous Back/Spine/Pelvis: Other: large sacral ulcer, generally clean, no gangrenous tissue, sacrum expose Objective Data Active Medications Acetaminophen (Acetaminophen 325 Mg Tablet) 650 mg PO Q6H PRN PRN Reason: Pain, Mild (Pain Scale 1-3) Apixaban (Apixaban 5 Mg Tablet) 5 mg PO BID [facility] Last Admin: 07/16/22 11:39 Dose: Not Given Documented By: NAYA Non-Admin Reason: Off unit: Dialysis Ascorbic Acid (Ascorbic Acid 500 Mg Tablet) 500 mg PO BID [facility] Last Admin: 07/16/22 11:49 Dose: 500 mg Documented By: NAYA Aspirin (Aspirin Enteric Coated 81 Mg Tablet.Dr) 81 mg PO DAILY [facility] Last Admin: 07/16/22 11:47 Dose: 81 mg Documented By: NAYA Atorvastatin Calcium (Atorvastatin Calcium 80 Mg Tablet) 80 mg PO BEDTIME [facility] Last Admin: 07/15/22 21:15 Dose: 80 mg Documented By: YESIKA Calcium Carbonate/Cholecalciferol (Calcium + Vitamin D 250 Mg Tablet) 500 mg PO DAILY [facility] Last Admin: 07/16/22 11:48 Dose: 500 mg Documented By: NAYA Cholestyramine Resin (Cholestyramine (With Sugar) 4 Gm Powd.Pack) 4 gm PO BIDWM [facility] Last Admin: 07/16/22 11:39 Dose: Not Given Documented By: NAYA Non-Admin Reason: Off unit: Dialysis Diphenhydramine HCl (Diphenhydramine Hcl 25 Mg Capsule) 25 mg PO TID PRN PRN Reason: Itching Docusate Sodium (Docusate Sodium 100 Mg Capsule) 100 mg PO DAILY [facility] Last Admin: 07/16/22 11:49 Dose: 100 mg Documented By: NAYA Ezetimibe (Ezetimibe 10 Mg Tablet) 10 mg PO DAILY [facility] Last Admin: 07/16/22 11:49 Dose: 10 mg Documented By: NAYA Epoetin Wai (Epoetin Wai 10,000 Unit/Ml Vial) 10,000 unit SUBCUT TuThSa@1200 [facility] Fentanyl (Fentanyl 12 Mcg Patch.Td72) 12 mcg TRANSDERMA Q72H [facility] Last Admin: 07/16/22 11:50 Dose: 12 mcg Documented By: NAYA Fluticasone Propionate (Fluticasone Propionate Nasal 16 Gm [place]) 1 spray NOSTRIL-B DAILY [facility] Last Admin: 07/16/22 11:39 Dose: Not Given Documented By: NAYA Non-Admin Reason: Off unit: Dialysis Furosemide (Furosemide 20 Mg/2 Ml Vial) 20 mg IVPUSH BID@0900,1800 [facility]; Protocol Last Admin: 07/16/22 11:49 Dose: 20 mg Documented By: NAYA Meropenem 500 mg/ Sodium (Chloride) 50 mls @ 100 mls/hr IV Q24H [facility] Last Infusion: 07/15/22 16:59 Dose: 0 mls/hr Documented By: CESAR Insulin Glargine (Insulin Glargine,Hum.Rec.Anlog 100 Unit/Ml 10 Ml Vial) 19 unit SUBCUT DAILY [facility] Last Admin: 07/16/22 11:50 Dose: 19 unit Documented By: NAYA Insulin Human Lispro (Insulin Lispro 100 Unit/Ml 3 Ml Vial) 0 unit SUBCUT QIDACHS [facility]; Protocol Last Admin: 07/16/22 12:37 Dose: 2 unit Documented By: NAYA Linezolid (Linezolid 600 Mg Tablet) 600 mg PO Q12H [facility] Last Admin: 07/16/22 02:42 Dose: 600 mg Documented By: YESIKA Melatonin (Melatonin 3 Mg Tablet) 3 mg PO BEDTIME [facility] Last Admin: 07/15/22 21:15 Dose: 3 mg Documented By: YESIKA Midodrine (Midodrine Hcl 5 Mg Tablet) 5 mg PO TID@0900,1200,1800 [facility] Last Admin: 07/16/22 11:49 Dose: 5 mg Documented By: NAYA Midodrine (Midodrine Hcl 5 Mg Tablet) 5 mg PO TUTHSA@0900 [facility] Last Admin: 07/16/22 11:49 Dose: 5 mg Documented By: NAYA Midodrine (Midodrine Hcl 5 Mg Tablet) 10 mg PO TuThSa PRN PRN Reason: LOW BLOOD PRESSURE Multivitamins/Vitamin C (Multivitamin Tablet) 1 tab PO DAILY [facility] Last Admin: 07/16/22 11:48 Dose: 1 tab Documented By: NAYA Nitroglycerin (Nitroglycerin 0.4 Mg Tab.Subl) 0.4 mg SUBLINGUAL Q5M PRN PRN Reason: Chest Pain Ondansetron HCl (Ondansetron Hcl 4 Mg/2 Ml Vial) 4 mg IVPUSH Q8H PRN PRN Reason: Nausea and Vomiting Pharmacy Consult (Consult Rx Perform Med Rec) 1 each MISCELLANE ONCE PRN PRN Reason: Consult order Pharmacy Consult (Consult Rx Vancomycin Dosing) 1 each MISCELLANE DAILY PRN PRN Reason: Consult order Polyethylene Glycol (Polyethylene Glycol 3350 17 Gm Powd.Pack) 17 gm PO DAILY [facility] Last Admin: 07/16/22 11:48 Dose: 17 gm Documented By: NAYA Primidone (Primidone 50 Mg Tablet) 50 mg PO BEDTIME [facility] Last Admin: 07/15/22 21:15 Dose: 50 mg Documented By: YESIKA Senna (Sennosides 8.6 Mg Tablet) 17.2 mg PO DAILY [facility] Last Admin: 07/16/22 11:48 Dose: 17.2 mg Documented By: NAYA Sodium Chloride (0.9 % Sodium Chloride Flush 3 Ml Syringe) 3 ml IVFLUSH QSHIFT [facility] Last Admin: 07/16/22 11:38 Dose: Not Given Documented By: NAYA Non-Admin Reason: Off unit: Dialysis Labs CBC & Chem 7: 07/15/22 05:29 07/15/22 05:29 Labs: Laboratory Results - last 24 hr 07/15/22 07/15/2207/16/22 16:42 20:07 11:43 POC Glucose 157 H 164 H 180 H Microbiology Microbiology Results: Microbiology 07/11/22 06:35 Blood Culture - Final Blood - Arterial Line No growth after 5 days. 07/11/22 06:35 Blood Culture - Final Blood - Arterial Line No growth after 5 days. Procedures Date of Service Date of Service: 07/16/22 Progress Note: A&P Assessment and plan (1) Sacral decubitus ulcer: Status: Acute Assessment and Plan: I have changed his dressings, applied wet to dry then covered the area with foam dressings some soilage of stool from residual contents in the rectum needs frequent [id number] position changes good wound care will follow for possible need for debridement Time Spent With Patient Time: Total time spent is greater than 50% in coordination of care (as documented) at patient's floor/unit and/or counseling patient: Quality Stroke Does the patient have a stroke diagnosis?: No VTE Prior VTE?: No VTE Risk Level:: Medical - moderate - high VTE Device Contraindication: Treatment Not Indicated VTE Drug Contraindication: N/A - Med Ordered
[2022-07-16 15:38] VITALS: BP 102/56; PULSE 100; RESP 18; TEMP 36.3; O2SAT 99
[2022-07-16 16:55] LABS: Glucose, Whole Blood 294 mg/dL (60-115)
[2022-07-16] MEDS: Morphine Sulfate 2 MG/ML CARTRIDGE IVPUSH (16:59)
[2022-07-16] MEDS: Cholestyramine (With Sugar) 4 GM POWD.PACK PO (16:59)
[2022-07-16 20:00] VITALS: BP 114/62; PULSE 94; RESP 18; TEMP 36.6; O2SAT 100
[2022-07-16] MEDS: Melatonin 3 MG TABLET PO (22:07)
[2022-07-16] MEDS: Apixaban 5 MG TABLET PO (22:07)
[2022-07-16] MEDS: Primidone 50 MG TABLET PO (22:07)
[2022-07-16] MEDS: Atorvastatin Calcium 80 MG TABLET PO (22:07)
[2022-07-16] MEDS: HYDROmorphone HCl 2 MG/ML VIAL IVPUSH (22:07)
[2022-07-16 23:55] VITALS: BP 128/57; PULSE 108; RESP 20; TEMP 36.4; O2SAT 100
[2022-07-17 04:00] VITALS: BP 116/72; PULSE 111; RESP 20; TEMP 36.1; O2SAT 99
[2022-07-17] MEDS: Linezolid 600 MG TABLET PO ×2 (04:16→18:07)
[2022-07-17 08:00] VITALS: BP 112/63; PULSE 113; RESP 18; TEMP 36.7; O2SAT 100
[2022-07-17 09:10] LABS: Glucose, Whole Blood 200 mg/dL (60-115)
--- NOTE | 2022-07-17 09:16 | P.PNNP_ITS ---
Subjective Subjective Date of Service: 08/02/22 Interval history: f/u on sepsis d/t decub osteo interval history: no new issues, pain controlled. intermittent tachycadia Physical Exam Vital Signs: Vital Signs: Last Vital Signs Temp 98.1 F 07/17/22 08:00 Pulse 113 H 07/17/22 08:00 Resp 18 07/17/22 08:00 BP 112/63 07/17/22 08:00 Pulse Ox 100 07/17/22 08:00 O2 Del Method 07/17/22 08:00 BMI result Body Mass Index 25.0 Const: Other: General: AO X 3, no acute distress Resp: CTA bilateral CVS: S1,S2,RRR, some swelling in arms/legs GI: +BS, NT, no distention Skin: see pictures Neuro: motor grossly intact Psych: appropriate affect General: cooperative, comfortable and no acute distress Nutritional Appearance: thin Orientation/consciousness: patient oriented x3 Limitations: other limitations (intubated and sedated) HEENT: Head: Yes normal to inspection Face and sinus: Yes normal facial exam Mouth: Normal oral and palatal mucosa present Teeth and gingiva: dentition normal Eyes: General: appearance normal, both eyes and all related structures Sclerae: sclerae normal Pupils: Equal, round and reactive pupils present Neck: Neck: Yes full ROM, Yes no lymphadenopathy and Yes supple Chest: Chest palpation & inspection: normal inspection of the chest Resp: Effort & Inspection: normal respiratory effort Auscultation: clear to auscultation bilaterally Cardio: Jugular venous distension: no JVD Palpation: normal PMI Rate: regular rate and tachycardic Rhythm: regular rhythm Heart sounds: no click, no murmurs and no rubs GI: Other: soft, colostomy functioning, edematous Inspection: Yes other (Ostomy bag is present) Palpation (GI): Soft to palpation, not firm, nontender and no guarding Auscultation: normal bowel sounds Rectal Exam - Male: Yes deferred : General: Yes no CVA tenderness Back/Spine/Pelvis: Other: large sacral ulcer, generally clean, no gangrenous tissue, sacrum expose Back: no CVA tenderness Skin: General skin exam: no rashes or lesions noted Neuro: General: patient oriented x3 and moves all extremities Cranial nerves: Yes Equal, round and reactive pupils present Motor exam (neuro): no asterixis Extrem: Other: 2+ pedal edema General: Yes normal to inspection Psych: Appearance: grossly normal Objective Data Labs CBC & Chem 7: 07/31/22 05:15 07/31/22 05:15 Labs: Laboratory Results - last 24 hr 07/16/22 07/16/22 07/17/22 11:43 16:52 09:04 POC Glucose 180 H 294 H 200 H Microbiology Microbiology Results: Microbiology 07/11/22 06:35 Blood - Arterial Line Blood Culture - Final No growth after 5 days. 07/11/22 06:35 Blood - Arterial Line Blood Culture - Final No growth after 5 days. Procedures Date of Service Date of Service: 07/17/22 Assessment & Plan Assessment and plan (1) Sacral decubitus ulcer: (2) End stage renal disease: Assessment and Plan: dialysis w/o problem yesterday MWF schedule will repeat labs Plan No s/s of uremia Fluid status acceptable HD today- He is signing off early due to pain. 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
[2022-07-17] MEDS: Insulin Glargine,Hum.rec.anlog 100 UNIT/ML 10 ML VIAL 19 UNIT SUBCUT (09:50)
[2022-07-17] MEDS: Insulin Lispro 100 UNIT/ML 3 ML VIAL SUBCUT ×4 (09:51→21:40)
[2022-07-17] MEDS: Furosemide 20 MG/2 ML VIAL IVPUSH ×2 (09:51→18:05)
[2022-07-17] MEDS: Sennosides 8.6 MG TABLET 17.2 MG PO (09:52)
[2022-07-17] MEDS: Ascorbic Acid 500 MG TABLET PO ×2 (09:52→21:40)
[2022-07-17] MEDS: Midodrine HCl 5 MG TABLET PO ×3 (09:52→18:07)
[2022-07-17] MEDS: Apixaban 5 MG TABLET PO ×2 (09:52→21:40)
[2022-07-17] MEDS: Docusate Sodium 100 MG CAPSULE PO (09:52)
[2022-07-17] MEDS: Metoprolol Tartrate 25 MG TABLET PO ×3 (09:52→21:40)
[2022-07-17] MEDS: Aspirin Enteric Coated 81 MG TABLET.DR PO (09:52)
[2022-07-17] MEDS: Calcium + Vitamin D 250 MG TABLET 500 MG PO (09:52)
[2022-07-17] MEDS: Ezetimibe 10 MG TABLET PO (09:52)
[2022-07-17] MEDS: Multivitamin TABLET 1 TAB PO (09:53)
[2022-07-17] MEDS: 0.9 % Sodium Chloride Flush 3 ML SYRINGE IVFLUSH ×3 (09:53→23:11)
[2022-07-17] MEDS: Cholestyramine (With Sugar) 4 GM POWD.PACK PO ×2 (09:54→18:06)
[2022-07-17 10:40] LABS: MANUAL DIFF FLAG NO
[2022-07-17 10:42] LABS: Basophils Percent Auto 0.2 % (0-2); Eosinophils Absolute Auto 0.2 X10*3/uL (0.0-0.4); Eosinophils Percent Auto 1.2 % (0-4); Hematocrit 25.5 % (42.0-52.0); Hemoglobin 8.1 g/dl (14.0-18.0); Imm Gran Abs Auto 0.09 X10*3/uL (0.00-0.03); Imm Gran Pct Auto 0.7 % (0.0-0.4); Lymphocytes Absolute Auto 1.1 X10*3/uL (1.2-4.9); Lymphocytes Percent Auto 8.7 % (20-40); Mean Corpuscular HGB Conc 31.8 g/dl (31.0-36.0); Mean Corpuscular Hemoglobin 30.8 pg (27.0-33.0); Mean Platelet Volume 9.4 fL (9.4-12.4); Monocytes Absolute Auto 0.8 X10*3/uL (0.1-1.2); Monocytes Percent Auto 6.7 % (2-11); Neutrophils Absolute Auto 10.2 x10*3/uL (2.0-8.3); Neutrophils Percent Auto 82.5 % (45-73); Platelet Count 311 X10*3/uL (160-400); Red Blood Count 2.63 X10*6/uL (4.60-5.80); Red Cell Distribution Width 17.5 % (11.0-16.0); White Blood Count 12.3 X10*3/uL (4.8-10.8)
--- NOTE | 2022-07-17 10:45 | HO.PM.IMPN ---
Subjective Subjective Date of Service: 07/17/22 Interval History: f/u on sepsis d/t decub osteo interval history: no new issues, pain controlled. still with uncontrolled afib Review of Systems no fever no chest pain no sob Physical Exam Vital Signs: Vital Signs: Last Vital Signs Temp 98.1 F 07/17/22 08:00 Pulse 113 H 07/17/22 08:00 Resp 18 07/17/22 08:00 BP 112/63 07/17/22 08:00 Pulse Ox 100 07/17/22 08:00 O2 Del Method 07/17/22 08:00 BMI result Body Mass Index 25.0 Const: Other: General: AO X 3, no acute distress Resp: CTA bilateral CVS: S1,S2,RRR, some swelling in arms/legs GI: +BS, NT, no distention Skin: see pictures Neuro: motor grossly intact Psych: appropriate affect Objective Data Active Medications Acetaminophen (Acetaminophen 325 Mg Tablet) 650 mg PO Q6H PRN PRN Reason: Pain, Mild (Pain Scale 1-3) Last Admin: 07/16/22 14:31 Dose: 650 mg Documented By: NAYA Apixaban (Apixaban 5 Mg Tablet) 5 mg PO BID [facility] Last Admin: 07/17/22 09:52 Dose: 5 mg Documented By: LEONEL Ascorbic Acid (Ascorbic Acid 500 Mg Tablet) 500 mg PO BID [facility] Last Admin: 07/17/22 09:52 Dose: 500 mg Documented By: LEONEL Aspirin (Aspirin Enteric Coated 81 Mg Tablet.Dr) 81 mg PO DAILY [facility] Last Admin: 07/17/22 09:52 Dose: 81 mg Documented By: LEONEL Atorvastatin Calcium (Atorvastatin Calcium 80 Mg Tablet) 80 mg PO BEDTIME [facility] Last Admin: 07/16/22 22:07 Dose: 80 mg Documented By: ERIS Calcium Carbonate/Cholecalciferol (Calcium + Vitamin D 250 Mg Tablet) 500 mg PO DAILY [facility] Last Admin: 07/17/22 09:52 Dose: 500 mg Documented By: LEONEL Cholestyramine Resin (Cholestyramine (With Sugar) 4 Gm Powd.Pack) 4 gm PO BIDWM [facility] Last Admin: 07/17/22 09:54 Dose: 4 gm Documented By: LEONEL Diphenhydramine HCl (Diphenhydramine Hcl 25 Mg Capsule) 25 mg PO TID PRN PRN Reason: Itching Docusate Sodium (Docusate Sodium 100 Mg Capsule) 100 mg PO DAILY [facility] Last Admin: 07/17/22 09:52 Dose: 100 mg Documented By: LEONEL Ezetimibe (Ezetimibe 10 Mg Tablet) 10 mg PO DAILY [facility] Last Admin: 07/17/22 09:52 Dose: 10 mg Documented By: LEONEL Epoetin Wai (Epoetin Wai 10,000 Unit/Ml Vial) 10,000 unit SUBCUT TuThSa@1200 [facility] Last Admin: 07/16/22 14:31 Dose: 10,000 unit Documented By: NAYA Fentanyl (Fentanyl 12 Mcg Patch.Td72) 12 mcg TRANSDERMA Q72H [facility] Last Admin: 07/16/22 11:50 Dose: 12 mcg Documented By: NAYA Fluticasone Propionate (Fluticasone Propionate Nasal 16 Gm [place]) 1 spray NOSTRIL-B DAILY [facility] Last Admin: 07/16/22 11:39 Dose: Not Given Documented By: NAYA Non-Admin Reason: Off unit: Dialysis Furosemide (Furosemide 20 Mg/2 Ml Vial) 20 mg IVPUSH BID@0900,1800 [facility]; Protocol Last Admin: 07/17/22 09:51 Dose: 20 mg Documented By: LEONEL Meropenem 500 mg/ Sodium (Chloride) 50 mls @ 100 mls/hr IV Q24H [facility] Last Infusion: 07/16/22 16:46 Dose: 0 mls/hr Documented By: NAYA Insulin Glargine (Insulin Glargine,Hum.Rec.Anlog 100 Unit/Ml 10 Ml Vial) 19 unit SUBCUT DAILY [facility] Last Admin: 07/17/22 09:50 Dose: 19 unit Documented By: LEONEL Insulin Human Lispro (Insulin Lispro 100 Unit/Ml 3 Ml Vial) 0 unit SUBCUT QIDACHS [facility]; Protocol Last Admin: 07/17/22 09:51 Dose: 2 unit Documented By: LEONEL Linezolid (Linezolid 600 Mg Tablet) 600 mg PO Q12H [facility] Last Admin: 07/17/22 04:16 Dose: 600 mg Documented By: ERIS Melatonin (Melatonin 3 Mg Tablet) 3 mg PO BEDTIME [facility] Last Admin: 07/16/22 22:07 Dose: 3 mg Documented By: ERIS Metoprolol Tartrate (Metoprolol Tartrate 25 Mg Tablet) 25 mg PO TID [facility]; Protocol Last Admin: 07/17/22 09:52 Dose: 25 mg Documented By: LEONEL Midodrine (Midodrine Hcl 5 Mg Tablet) 5 mg PO TID@0900,1200,1800 [facility] Last Admin: 07/17/22 09:52 Dose: 5 mg Documented By: LEONEL Midodrine (Midodrine Hcl 5 Mg Tablet) 5 mg PO TUTHSA@0900 [facility] Last Admin: 07/16/22 11:49 Dose: 5 mg Documented By: NAYA Midodrine (Midodrine Hcl 5 Mg Tablet) 10 mg PO TuThSa PRN PRN Reason: LOW BLOOD PRESSURE Multivitamins/Vitamin C (Multivitamin Tablet) 1 tab PO DAILY [facility] Last Admin: 07/17/22 09:53 Dose: 1 tab Documented By: LEONEL Nitroglycerin (Nitroglycerin 0.4 Mg Tab.Subl) 0.4 mg SUBLINGUAL Q5M PRN PRN Reason: Chest Pain Ondansetron HCl (Ondansetron Hcl 4 Mg/2 Ml Vial) 4 mg IVPUSH Q8H PRN PRN Reason: Nausea and Vomiting Pharmacy Consult (Consult Rx Perform Med Rec) 1 each MISCELLANE ONCE PRN PRN Reason: Consult order Pharmacy Consult (Consult Rx Vancomycin Dosing) 1 each MISCELLANE DAILY PRN PRN Reason: Consult order Polyethylene Glycol (Polyethylene Glycol 3350 17 Gm Powd.Pack) 17 gm PO DAILY [facility] Last Admin: 07/17/22 09:53 Dose: Not Given Documented By: LEONEL Non-Admin Reason: Patient Refused Primidone (Primidone 50 Mg Tablet) 50 mg PO BEDTIME [facility] Last Admin: 07/16/22 22:07 Dose: 50 mg Documented By: ERIS Senna (Sennosides 8.6 Mg Tablet) 17.2 mg PO DAILY [facility] Last Admin: 07/17/22 09:52 Dose: 17.2 mg Documented By: LEONEL Sodium Chloride (0.9 % Sodium Chloride Flush 3 Ml Syringe) 3 ml IVFLUSH QSHIFT [facility] Last Admin: 07/17/22 09:53 Dose: 3 ml Documented By: LEONEL Labs CBC & Chem 7: 07/17/22 10:09 07/15/22 05:29 Labs: Laboratory Results - last 24 hr 07/16/22 07/16/22 07/17/22 11:43 16:52 09:04 MCV MCH MCHC RDW Plt Count MPV Immature Gran % (Auto) Neut % (Auto) Lymph % (Auto) [place] % (Auto) Eos % (Auto) Baso % (Auto) Lymph # (Auto) [place] # (Auto) Eos # (Auto) Baso # (Auto) Abs Immat Gran (auto) Absolute Neuts (auto) Absolute Nucleated RBC Nucleated RBC % (auto) POC Glucose 180 H 294 H 200 H 07/17/22 10:09 MCV 97.0 MCH 30.8 MCHC 31.8 RDW 17.5 H Plt Count 311 MPV 9.4 Immature Gran % (Auto) 0.7 H Neut % (Auto) 82.5 H Lymph % (Auto) 8.7 L [place] % (Auto) 6.7 Eos % (Auto) 1.2 Baso % (Auto) 0.2 Lymph # (Auto) 1.1 L [place] # (Auto) 0.8 Eos # (Auto) 0.2 Baso # (Auto) 0.0 Abs Immat Gran (auto) 0.09 H Absolute Neuts (auto) 10.2 H Absolute Nucleated RBC 0.000 Nucleated RBC % (auto) 0.0 POC Glucose Microbiology Microbiology Results: Microbiology 07/11/22 06:35 Blood Culture - Final Blood - Arterial Line No growth after 5 days. 07/11/22 06:35 Blood Culture - Final Blood - Arterial Line No growth after 5 days. 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 Avina in ID admitted for chest pain found to be septic with stage IV decubitus ulcer of the sacrum with osteomyelitis. #Sepsis- secondary to stage IV decubitus ulcer of the sacrum with osteomyelitis -leukocytosis has been chronic over the last few months secondary to osteomyelitis but remains elevated despite completing IV antibiotics at 13.0.? ID recommended IV meropenem and PO zyvox for 6 weeks. Clinically stable at moment. WBC is down to 12 and otherwise has no features of sepsis. #Stage IV decubitus ulcer sacrum- present on arrival, Seen by surgery an s/p debridement, preventative measures with frequent turning, appropriate bed. Surgery to reassess for need for debridment # ESRD--to continue usual schedule of dialysis (Monday, and Monday) # anasarca-secondary to ESRD--fluid removal at dialysis #Malnutrition with protein deficiency with protein deficiency--ensure # chest pain-resolved with no evidence of ACS #Permanent AFIB with RVR--likely from sepsis and required IV cardizem but now back on usual dose of Toprol and HR in 90s # hypotension-resolved -secondary to nitroglycerin administration, not septic shock -continue Midodrine # paroxysmal atrial fibrillation--rate uncontrolled. Change to metoprolol 25 mg q8, continue eliquis # coronary artery disease-chest pain resolved -continue ASA, Eliquis, atorvastatin.? Hold beta-wilolw due to soft blood pressure # insulin-dependent type 2 diabetes with hyperglycemia -POC glucose -diabetic diet -Humalog on sliding scale -dose adjusted Lantus 19 units daily #Chronic systolic heart failure -compensated -continue home meds #discoid lupus erythematous -continue home meds # generalized weakness # Constipation as seeen on CT--add Miralax need for inaptient: sepsis requiring IV Abx DC once heart rate better controlled Quality Stroke Does the patient have a stroke diagnosis?: No VTE Prior VTE?: No VTE Risk Level:: Medical - moderate - high VTE Device Contraindication: Treatment Not Indicated VTE Drug Contraindication: N/A - Med Ordered
[2022-07-17 11:00] LABS: Anion Gap 16 (12-20); Blood Urea Nitrogen 50 mg/dL (9-16); Calcium 7.6 mg/dL (8.4-10.2); Carbon Dioxide 22 mmol/L (22-29); Chloride 93 mmol/L (96-108); Creatinine Clr Calc Pharmacy 40.3; Estimated Glomerular Filt Rate 30; Glucose Random 287 mg/dL (60-115); Potassium 3.6 mmol/L (3.3-5.1); Sodium 127 mmol/L (135-145)
--- NOTE | 2022-07-17 11:16 | PC.NURSE ---
Edema and leaking around ostomy site to patient's LLQ. Size >7mm allowed for ostomy drainage bag. MD notified and inspected site. Nazanin PITTMAN to bedside to assess ostomy. MD expressed moderate amount serous drainage from ostomy. New ostomy bag applied and sealed well. MD changed dressing to Stage 4 sacreal woun. Wet to dry dressing with silver alginate, gauze and large foam.
[2022-07-17 11:48] VITALS: BP 111/73; PULSE 95; RESP 18; TEMP 36.2; O2SAT 96
--- NOTE | 2022-07-17 11:52 | P.PNGS_ITS ---
Subjective Subjective Date of Service: 07/17/22 Interval history: no new complaints has pain on backside stoma functioning, with stools Physical Exam Vital Signs: Vital Signs: Last Vital Signs Temp 98.1 F 07/17/22 08:00 Pulse 113 H 07/17/22 08:00 Resp 18 07/17/22 08:00 BP 112/63 07/17/22 08:00 Pulse Ox 100 07/17/22 08:00 O2 Del Method 07/17/22 08:00 BMI result Body Mass Index 25.0 Const: General: no acute distress Resp: Effort & Inspection: normal respiratory effort Cardio: Rate: tachycardic GI: Other: soft, loop colostomy with edema, with stool output Back/Spine/Pelvis: Other: large sacral decubitus ulcer, with some nonviable tissue on the rim of the flaps Objective Data Active Medications Acetaminophen (Acetaminophen 325 Mg Tablet) 650 mg PO Q6H PRN PRN Reason: Pain, Mild (Pain Scale 1-3) Last Admin: 07/16/22 14:31 Dose: 650 mg Documented By: NAYA Apixaban (Apixaban 5 Mg Tablet) 5 mg PO BID [facility] Last Admin: 07/17/22 09:52 Dose: 5 mg Documented By: LEONEL Ascorbic Acid (Ascorbic Acid 500 Mg Tablet) 500 mg PO BID [facility] Last Admin: 07/17/22 09:52 Dose: 500 mg Documented By: LEONEL Aspirin (Aspirin Enteric Coated 81 Mg Tablet.Dr) 81 mg PO DAILY [facility] Last Admin: 07/17/22 09:52 Dose: 81 mg Documented By: LEONEL Atorvastatin Calcium (Atorvastatin Calcium 80 Mg Tablet) 80 mg PO BEDTIME [facility] Last Admin: 07/16/22 22:07 Dose: 80 mg Documented By: ERIS Calcium Carbonate/Cholecalciferol (Calcium + Vitamin D 250 Mg Tablet) 500 mg PO DAILY [facility] Last Admin: 07/17/22 09:52 Dose: 500 mg Documented By: LEONEL Cholestyramine Resin (Cholestyramine (With Sugar) 4 Gm Powd.Pack) 4 gm PO BIDWM [facility] Last Admin: 07/17/22 09:54 Dose: 4 gm Documented By: LEONEL Diphenhydramine HCl (Diphenhydramine Hcl 25 Mg Capsule) 25 mg PO TID PRN PRN Reason: Itching Docusate Sodium (Docusate Sodium 100 Mg Capsule) 100 mg PO DAILY [facility] Last Admin: 07/17/22 09:52 Dose: 100 mg Documented By: LEONEL Ezetimibe (Ezetimibe 10 Mg Tablet) 10 mg PO DAILY [facility] Last Admin: 07/17/22 09:52 Dose: 10 mg Documented By: LEONEL Epoetin Wai (Epoetin Wai 10,000 Unit/Ml Vial) 10,000 unit SUBCUT TuThSa@1200 [facility] Last Admin: 07/16/22 14:31 Dose: 10,000 unit Documented By: NAYA Fentanyl (Fentanyl 12 Mcg Patch.Td72) 12 mcg TRANSDERMA Q72H [facility] Last Admin: 07/16/22 11:50 Dose: 12 mcg Documented By: NAYA Fluticasone Propionate (Fluticasone Propionate Nasal 16 Gm [place]) 1 spray NOSTRIL-B DAILY [facility] Last Admin: 07/16/22 11:39 Dose: Not Given Documented By: NAYA Non-Admin Reason: Off unit: Dialysis Furosemide (Furosemide 20 Mg/2 Ml Vial) 20 mg IVPUSH BID@0900,1800 [facility]; Protocol Last Admin: 07/17/22 09:51 Dose: 20 mg Documented By: LEONEL Meropenem 500 mg/ Sodium (Chloride) 50 mls @ 100 mls/hr IV Q24H [facility] Last Infusion: 07/16/22 16:46 Dose: 0 mls/hr Documented By: NAYA Insulin Glargine (Insulin Glargine,Hum.Rec.Anlog 100 Unit/Ml 10 Ml Vial) 19 unit SUBCUT DAILY [facility] Last Admin: 07/17/22 09:50 Dose: 19 unit Documented By: LEONEL Insulin Human Lispro (Insulin Lispro 100 Unit/Ml 3 Ml Vial) 0 unit SUBCUT QIDACHS [facility]; Protocol Last Admin: 07/17/22 09:51 Dose: 2 unit Documented By: LEONEL Linezolid (Linezolid 600 Mg Tablet) 600 mg PO Q12H [facility] Last Admin: 07/17/22 04:16 Dose: 600 mg Documented By: ERIS Melatonin (Melatonin 3 Mg Tablet) 3 mg PO BEDTIME [facility] Last Admin: 07/16/22 22:07 Dose: 3 mg Documented By: ERIS Metoprolol Tartrate (Metoprolol Tartrate 25 Mg Tablet) 25 mg PO TID [facility]; Protocol Last Admin: 07/17/22 09:52 Dose: 25 mg Documented By: LEONEL Midodrine (Midodrine Hcl 5 Mg Tablet) 5 mg PO TID@0900,1200,1800 [facility] Last Admin: 07/17/22 09:52 Dose: 5 mg Documented By: LEONEL Midodrine (Midodrine Hcl 5 Mg Tablet) 5 mg PO TUTHSA@0900 [facility] Last Admin: 07/16/22 11:49 Dose: 5 mg Documented By: NAYA Midodrine (Midodrine Hcl 5 Mg Tablet) 10 mg PO TuThSa PRN PRN Reason: LOW BLOOD PRESSURE Multivitamins/Vitamin C (Multivitamin Tablet) 1 tab PO DAILY [facility] Last Admin: 07/17/22 09:53 Dose: 1 tab Documented By: LEONEL Nitroglycerin (Nitroglycerin 0.4 Mg Tab.Subl) 0.4 mg SUBLINGUAL Q5M PRN PRN Reason: Chest Pain Ondansetron HCl (Ondansetron Hcl 4 Mg/2 Ml Vial) 4 mg IVPUSH Q8H PRN PRN Reason: Nausea and Vomiting Oxycodone HCl (Oxycodone Hcl Immed Release 5 Mg Tablet) 5 mg PO Q6H PRN PRN Reason: Pain, Severe (Pain Scale 7-10) Pharmacy Consult (Consult Rx Perform Med Rec) 1 each MISCELLANE ONCE PRN PRN Reason: Consult order Pharmacy Consult (Consult Rx Vancomycin Dosing) 1 each MISCELLANE DAILY PRN PRN Reason: Consult order Polyethylene Glycol (Polyethylene Glycol 3350 17 Gm Powd.Pack) 17 gm PO DAILY [facility] Last Admin: 07/17/22 09:53 Dose: Not Given Documented By: LEONEL Non-Admin Reason: Patient Refused Primidone (Primidone 50 Mg Tablet) 50 mg PO BEDTIME [facility] Last Admin: 07/16/22 22:07 Dose: 50 mg Documented By: ERIS Senna (Sennosides 8.6 Mg Tablet) 17.2 mg PO DAILY [facility] Last Admin: 07/17/22 09:52 Dose: 17.2 mg Documented By: LEONEL Sodium Chloride (0.9 % Sodium Chloride Flush 3 Ml Syringe) 3 ml IVFLUSH QSHIFT [facility] Last Admin: 07/17/22 09:53 Dose: 3 ml Documented By: LEONEL Labs CBC & Chem 7: 07/17/22 10:09 07/17/22 10:09 Labs: Laboratory Results - last 24 hr 07/16/22 07/16/22 07/17/22 11:43 16:52 09:04 MCV MCH MCHC RDW Plt Count MPV Immature Gran % (Auto) Neut % (Auto) Lymph % (Auto) [place] % (Auto) Eos % (Auto) Baso % (Auto) Lymph # (Auto) [place] # (Auto) Eos # (Auto) Baso # (Auto) Abs Immat Gran (auto) Absolute Neuts (auto) Absolute Nucleated RBC Nucleated RBC % (auto) Anion Gap Estim Creat Clear Calc Estimated GFR POC Glucose 180 H 294 H 200 H Random Glucose Calcium 07/17/22 07/17/22 10:09 10:09 MCV 97.0 MCH 30.8 MCHC 31.8 RDW 17.5 H Plt Count 311 MPV 9.4 Immature Gran % (Auto) 0.7 H Neut % (Auto) 82.5 H Lymph % (Auto) 8.7 L [place] % (Auto) 6.7 Eos % (Auto) 1.2 Baso % (Auto) 0.2 Lymph # (Auto) 1.1 L [place] # (Auto) 0.8 Eos # (Auto) 0.2 Baso # (Auto) 0.0 Abs Immat Gran (auto) 0.09 H Absolute Neuts (auto) 10.2 H Absolute Nucleated RBC 0.000 Nucleated RBC % (auto) 0.0 Anion Gap 16 Estim Creat Clear Calc 40.3 Estimated GFR 30 POC Glucose Random Glucose 287 H D Calcium 7.6 L Microbiology Microbiology Results: Microbiology 07/11/22 06:35 Blood Culture - Final Blood - Arterial Line No growth after 5 days. 07/11/22 06:35 Blood Culture - Final Blood - Arterial Line No growth after 5 days. Procedures Date of Service Date of Service: 07/17/22 Progress Note: A&P Assessment and plan (1) Sacral decubitus ulcer: Status: Acute Assessment and Plan: I did additional debridement of nonviable tissue using fine scissors at bedside silver alginate dressings and wet to dry dressings and applied to the large defect will need regular changes of position has heel ulcers as well - placed lost under the calf to allow heel to hang without touching the bed stoma with edema - I pressure diffusely to less than the edema, fresh colostomy appliance therefore applied stoma functioning well Time Spent With Patient Time: Total time spent is greater than 50% in coordination of care (as documented) at patient's floor/unit and/or counseling patient: Quality Stroke Does the patient have a stroke diagnosis?: No VTE Prior VTE?: No VTE Risk Level:: Medical - moderate - high VTE Device Contraindication: Treatment Not Indicated VTE Drug Contraindication: N/A - Med Ordered
[2022-07-17 12:03] LABS: Glucose, Whole Blood 326 mg/dL (60-115)
[2022-07-17 12:16] LABS: Glucose, Whole Blood 269 mg/dL (60-115)
[2022-07-17] MEDS: oxyCODONE HCl Immed Release 5 MG TABLET PO ×2 (12:58→21:59)
[2022-07-17 16:00] VITALS: BP 112/68; PULSE 126; RESP 16; TEMP 36.7; O2SAT 96
[2022-07-17 17:38] LABS: Glucose, Whole Blood 249 mg/dL (60-115)
[2022-07-17 20:00] VITALS: BP 133/80; PULSE 87; RESP 13; TEMP 36.4; O2SAT 95
[2022-07-17 21:01] LABS: Glucose, Whole Blood 275 mg/dL (60-115)
[2022-07-17] MEDS: Primidone 50 MG TABLET PO (21:40)
[2022-07-17] MEDS: Melatonin 3 MG TABLET PO (21:40)
[2022-07-17] MEDS: Atorvastatin Calcium 80 MG TABLET PO (21:40)
[2022-07-17 23:53] VITALS: BP 113/63; PULSE 98; RESP 18; TEMP 36.7; O2SAT 100
[2022-07-18 04:00] VITALS: BP 112/76; PULSE 98; RESP 16; TEMP 36.6; O2SAT 99
[2022-07-18] MEDS: Linezolid 600 MG TABLET PO ×2 (04:20→15:02)
[2022-07-18 07:52] VITALS: BP 129/75; PULSE 95; RESP 20; TEMP 36.6; O2SAT 99
[2022-07-18 07:52] LABS: Glucose, Whole Blood 248 mg/dL (60-115)
[2022-07-18] MEDS: Calcium + Vitamin D 250 MG TABLET 500 MG PO (08:26)
[2022-07-18] MEDS: Cholestyramine (With Sugar) 4 GM POWD.PACK PO ×2 (08:26→17:43)
[2022-07-18] MEDS: polyethylene glycoL 3350 17 GM POWD.PACK PO (08:26)
[2022-07-18] MEDS: Sennosides 8.6 MG TABLET 17.2 MG PO (08:27)
[2022-07-18] MEDS: Aspirin Enteric Coated 81 MG TABLET.DR PO (08:27)
[2022-07-18] MEDS: Furosemide 20 MG/2 ML VIAL IVPUSH ×2 (08:27→17:43)
[2022-07-18] MEDS: Metoprolol Tartrate 25 MG TABLET PO ×3 (08:27→21:31)
[2022-07-18] MEDS: Ezetimibe 10 MG TABLET PO (08:27)
[2022-07-18] MEDS: Ascorbic Acid 500 MG TABLET PO ×2 (08:27→21:31)
[2022-07-18] MEDS: Docusate Sodium 100 MG CAPSULE PO (08:28)
[2022-07-18] MEDS: Insulin Glargine,Hum.rec.anlog 100 UNIT/ML 10 ML VIAL 19 UNIT SUBCUT (08:28)
[2022-07-18] MEDS: Multivitamin TABLET 1 TAB PO (08:28)
[2022-07-18] MEDS: Apixaban 5 MG TABLET PO ×2 (08:28→21:31)
[2022-07-18] MEDS: Midodrine HCl 5 MG TABLET PO ×3 (08:28→17:43)
[2022-07-18] MEDS: Insulin Lispro 100 UNIT/ML 3 ML VIAL SUBCUT ×4 (08:29→21:31)
[2022-07-18] MEDS: 0.9 % Sodium Chloride Flush 3 ML SYRINGE IVFLUSH ×2 (08:30→15:09)
--- NOTE | 2022-07-18 10:47 | P.PNIM_ITS ---
Subjective Subjective Date of Service: 07/18/22 Interval History: f/u on sepsis d/t decub osteo interval history: no new issues, 19 beats of vtach Review of Systems no fever no chest pain no sob Physical Exam Vital Signs: Vital Signs: Last Vital Signs Temp 97.8 F 07/18/22 07:52 Pulse 95 07/18/22 07:52 Resp 20 07/18/22 07:52 BP 129/75 07/18/22 07:52 Pulse Ox 99 07/18/22 07:52 O2 Del Method 07/18/22 07:52 BMI result Body Mass Index 25.0 Const: Other: General: AO X 3, no acute distress Resp: CTA bilateral CVS: S1,S2,RRR, some swelling in arms/legs GI: +BS, NT, no distention Skin: see pictures Neuro: motor grossly intact Psych: appropriate affect Objective Data Active Medications Acetaminophen (Acetaminophen 325 Mg Tablet) 650 mg PO Q6H PRN PRN Reason: Pain, Mild (Pain Scale 1-3) Last Admin: 07/16/22 14:31 Dose: 650 mg Documented By: NAYA Apixaban (Apixaban 5 Mg Tablet) 5 mg PO BID [facility] Last Admin: 07/18/22 08:28 Dose: 5 mg Documented By: GAGANDEEP Ascorbic Acid (Ascorbic Acid 500 Mg Tablet) 500 mg PO BID [facility] Last Admin: 07/18/22 08:27 Dose: 500 mg Documented By: GAGANDEEP Aspirin (Aspirin Enteric Coated 81 Mg Tablet.Dr) 81 mg PO DAILY [facility] Last Admin: 07/18/22 08:27 Dose: 81 mg Documented By: GAGANDEEP Atorvastatin Calcium (Atorvastatin Calcium 80 Mg Tablet) 80 mg PO BEDTIME [facility] Last Admin: 07/17/22 21:40 Dose: 80 mg Documented By: ERIS Calcium Carbonate/Cholecalciferol (Calcium + Vitamin D 250 Mg Tablet) 500 mg PO DAILY [facility] Last Admin: 07/18/22 08:26 Dose: 500 mg Documented By: GAGANDEEP Cholestyramine Resin (Cholestyramine (With Sugar) 4 Gm Powd.Pack) 4 gm PO BIDWM [facility] Last Admin: 07/18/22 08:26 Dose: 4 gm Documented By: GAGANDEEP Diphenhydramine HCl (Diphenhydramine Hcl 25 Mg Capsule) 25 mg PO TID PRN PRN Reason: Itching Docusate Sodium (Docusate Sodium 100 Mg Capsule) 100 mg PO DAILY [facility] Last Admin: 07/18/22 08:28 Dose: 100 mg Documented By: GAGANDEEP Ezetimibe (Ezetimibe 10 Mg Tablet) 10 mg PO DAILY [facility] Last Admin: 07/18/22 08:27 Dose: 10 mg Documented By: GAGANDEEP Epoetin Wai (Epoetin Wai 10,000 Unit/Ml Vial) 10,000 unit SUBCUT TuThSa@1200 [facility] Last Admin: 07/16/22 14:31 Dose: 10,000 unit Documented By: NAYA Fluticasone Propionate (Fluticasone Propionate Nasal 16 Gm [place]) 1 spray NOSTRIL-B DAILY [facility] Last Admin: 07/18/22 08:50 Dose: Not Given Documented By: GAGANDEEP Non-Admin Reason: Patient Refused Furosemide (Furosemide 20 Mg/2 Ml Vial) 20 mg IVPUSH BID@0900,1800 [facility]; Protocol Last Admin: 07/18/22 08:27 Dose: 20 mg Documented By: GAGANDEEP Meropenem 500 mg/ Sodium (Chloride) 50 mls @ 100 mls/hr IV Q24H [facility] Last Infusion: 07/17/22 18:46 Dose: 0 mls/hr Documented By: LEONEL Insulin Glargine (Insulin Glargine,Hum.Rec.Anlog 100 Unit/Ml 10 Ml Vial) 19 unit SUBCUT DAILY [facility] Last Admin: 07/18/22 08:28 Dose: 19 unit Documented By: GAGANDEEP Insulin Human Lispro (Insulin Lispro 100 Unit/Ml 3 Ml Vial) 0 unit SUBCUT QIDACHS [facility]; Protocol Last Admin: 07/18/22 08:29 Dose: 4 unit Documented By: GAGANDEEP Linezolid (Linezolid 600 Mg Tablet) 600 mg PO Q12H [facility] Last Admin: 07/18/22 04:20 Dose: 600 mg Documented By: ERIS Melatonin (Melatonin 3 Mg Tablet) 3 mg PO BEDTIME [facility] Last Admin: 07/17/22 21:40 Dose: 3 mg Documented By: ERIS Metoprolol Tartrate (Metoprolol Tartrate 25 Mg Tablet) 25 mg PO TID [facility]; Protocol Last Admin: 07/18/22 08:27 Dose: 25 mg Documented By: GAGANDEEP Midodrine (Midodrine Hcl 5 Mg Tablet) 5 mg PO TID@0900,1200,1800 [facility] Last Admin: 07/18/22 08:28 Dose: 5 mg Documented By: GAGANDEEP Midodrine (Midodrine Hcl 5 Mg Tablet) 5 mg PO TUTHSA@0900 [facility] Last Admin: 07/16/22 11:49 Dose: 5 mg Documented By: NAYA Midodrine (Midodrine Hcl 5 Mg Tablet) 10 mg PO TuThSa PRN PRN Reason: LOW BLOOD PRESSURE Morphine Sulfate (Morphine Sulfate 2 Mg/Ml Cartridge) 2 mg IVPUSH Q6H PRN; Protocol PRN Reason: Pain, Severe (Pain Scale 7-10) Multivitamins/Vitamin C (Multivitamin Tablet) 1 tab PO DAILY [facility] Last Admin: 07/18/22 08:28 Dose: 1 tab Documented By: GAGANDEEP Nitroglycerin (Nitroglycerin 0.4 Mg Tab.Subl) 0.4 mg SUBLINGUAL Q5M PRN PRN Reason: Chest Pain Ondansetron HCl (Ondansetron Hcl 4 Mg/2 Ml Vial) 4 mg IVPUSH Q8H PRN PRN Reason: Nausea and Vomiting Oxycodone HCl (Oxycodone Hcl Immed Release 5 Mg Tablet) 5 mg PO Q6H PRN PRN Reason: Pain, Severe (Pain Scale 7-10) Last Admin: 07/17/22 21:59 Dose: 5 mg Documented By: ERIS Pharmacy Consult (Consult Rx Perform Med Rec) 1 each MISCELLANE ONCE PRN PRN Reason: Consult order Pharmacy Consult (Consult Rx Vancomycin Dosing) 1 each MISCELLANE DAILY PRN PRN Reason: Consult order Polyethylene Glycol (Polyethylene Glycol 3350 17 Gm Powd.Pack) 17 gm PO DAILY [facility] Last Admin: 07/18/22 08:26 Dose: 17 gm Documented By: GAGANDEEP Primidone (Primidone 50 Mg Tablet) 50 mg PO BEDTIME [facility] Last Admin: 07/17/22 21:40 Dose: 50 mg Documented By: ERIS Senna (Sennosides 8.6 Mg Tablet) 17.2 mg PO DAILY [facility] Last Admin: 07/18/22 08:27 Dose: 17.2 mg Documented By: GAGANDEEP Sodium Chloride (0.9 % Sodium Chloride Flush 3 Ml Syringe) 3 ml IVFLUSH QSHIFT [facility] Last Admin: 07/18/22 08:30 Dose: 3 ml Documented By: GAGANDEEP Labs CBC & Chem 7: 07/17/22 10:09 07/17/22 10:09 Labs: Laboratory Results - last 24 hr 07/15/22 07/16/22 07/17/22 Unknown 20:35 10:09 Anion Gap 16 Estim Creat Clear Calc 40.3 Estimated GFR 30 POC Glucose 326 H Random Glucose 287 H D Calcium 7.6 L Ur 24 Hour Volume Cancelled Ur Creatinine mg/dL Cancelled Ur Creatinine 24 Hour Cancelled Creat Clearance 24 Hr Cancelled 07/17/22 07/17/22 07/17/22 11:51 17:34 20:54 Anion Gap Estim Creat Clear Calc Estimated GFR POC Glucose 269 H 249 H 275 H Random Glucose Calcium Ur 24 Hour Volume Ur Creatinine mg/dL Ur Creatinine 24 Hour Creat Clearance 24 Hr 07/18/22 07:26 Anion Gap Estim Creat Clear Calc Estimated GFR POC Glucose 248 H Random Glucose Calcium Ur 24 Hour Volume Ur Creatinine mg/dL Ur Creatinine 24 Hour Creat Clearance 24 Hr Assessment and Plan (1) Sacral decubitus ulcer: Status: Acute (2) Sepsis: Status: Acute (3) End stage renal disease: Status: Acute Plan 59-year-old male with history of hyperlipidemia, insulin-dependent type 2 diabetes, orthostatic hypotension, ESRD on dialysis T//Mon following with Milton Saab, essential tremor, coronary artery disease s/p CABG 12 years ago, chronic systolic heart failure, 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 Avina in ID admitted for chest pain found to be septic with stage IV decubitus ulcer of the sacrum with osteomyelitis. #Sepsis- secondary to stage IV decubitus ulcer of the sacrum with osteomyelitis -leukocytosis has been chronic over the last few months secondary to osteomyelitis but remains elevated despite completing IV antibiotics at 13.0.? ID recommended IV meropenem and PO zyvox for 6 weeks. Clinically stable at m oment. WBC is down to 12 and otherwise has no features of sepsis. #Stage IV decubitus ulcer sacrum- present on arrival, Seen by surgery an s/p debridement, preventative measures with frequent turning, appropriate bed. Surgery to reassess for need for debridment # ESRD--to continue usual schedule of dialysis (Monday, and Monday) # anasarca-secondary to ESRD--fluid removal at dialysis #Malnutrition with protein deficiency with protein deficiency--ensure # chest pain-resolved with no evidence of ACS #Permanent AFIB with RVR--likely from sepsis and required IV cardizem but now back on usual dose of Toprol and HR in 90s # hypotension-resolved -secondary to nitroglycerin administration, not septic shock -continue Midodrine # paroxysmal atrial fibrillation--rate uncontrolled. Change to metoprolol 25 mg q8, continue eliquis #VT--check magnesium, consider cardiology evaluation # coronary artery disease-chest pain resolved -continue ASA, Eliquis, atorvastatin.? Hold beta-willow due to soft blood pressure # insulin-dependent type 2 diabetes with hyperglycemia -POC glucose -diabetic diet -Humalog on sliding scale -dose adjusted Lantus 19 units daily #Chronic systolic heart failure -compensated -continue home meds #discoid lupus erythematous -continue home meds # generalized weakness # Constipation as seeen on CT--add Miralax need for inaptient: sepsis requiring IV Abx DC once heart rate better controlled Quality Stroke Does the patient have a stroke diagnosis?: No VTE Prior VTE?: No VTE Risk Level:: Medical - moderate - high VTE Device Contraindication: Treatment Not Indicated VTE Drug Contraindication: N/A - Med Ordered
[2022-07-18 11:19] LABS: Glucose, Whole Blood 216 mg/dL (60-115)
[2022-07-18] MEDS: oxyCODONE HCl Immed Release 5 MG TABLET PO (11:30)
[2022-07-18 11:38] LABS: Magnesium 1.8 mg/dL (1.6-2.6)
[2022-07-18 11:47] VITALS: BP 117/68; PULSE 83; RESP 20; TEMP 36.7; O2SAT 100
--- NOTE | 2022-07-18 12:33 | MHC.CM.PN ---
Addendum entered by Norma Antonio 07/18/22 15:52: A referral has been sent to [facility] at the request of his family. Original Note: Male 67 DX Stage 4 Sacrum per MD rounds may dc after cardiac clearance. Pt has been seen by the rolloff driver, and cleared. Met with patient who stated that he would like to transfer to another facility. Additional referrals have been made. [facility] is reviewing. [facility] has been updated. No response received. A call was made to [facility]. A VM was left. T/W requested review and a bed offer. CM will follow.
--- NOTE | 2022-07-18 12:54 | PM.CNCAR ---
History of Present Illness History of Present Illness Date of Service: 07/18/22 Requesting physician: Emmanuel Mayen Chief complaint: NSVT Narrative: 67-year-old male with infected decubitus ulcer who is on Abx. He has chronic Afib and has been anticoagulated. He was noted to have shorts runs of NSVT. The patient is completely asymptomatic. He has no CP or SOB of palpitations. On IV ABx. [facility] Past Medical History Medical History CAD (coronary artery disease) Chronic systolic heart failure Diabetic nephropathy Discoid lupus erythematosus End stage renal disease Essential tremor HLD (hyperlipidemia) Osteomyelitis of sacrum Protein deficiency Stage IV pressure ulcer of sacral region Type 2 diabetes mellitus with hyperglycemia Family History Family History Sister Type 1 diabetes Father Type 1 diabetes Father CAD (coronary artery disease) Mother Stroke Ovarian cancer Family history: reviewed and not pertinent Surgical History Surgical History S/P CABG (coronary artery bypass graft) Social History Social History Housing: Other Housing Other:: Short term rehab Alcohol intake: never Patient Tobacco Use Status: Former Tobacco user Use of substances other than those prescribed or required for medical reasons: No Currently Displaying Signs/Symptoms of Drug Intoxication Withdrawal: No Have you been hit, kicked, punched, or otherwise hurt by someone within the past year? If so, by whom?: No Do you feel safe in your current relationship?: No Current Relationship Is there a partner from a previous relationship who is making you feel unsafe now?: No Are you made to feel afraid or neglected: No Advance Directives: No Advance Directives Information Provided: Yes Do you have thoughts of harming others: None Do you have a plan to hurt others: No Plan Recently lost weight without trying: No How much weight loss: Not applicable Eating poorly because of decreased appetite: No Nutrition screen score: 0 Nutrition Risks: No Nutritional Risk Poor oral hygiene: No service: No Current occupational status: retired Meds Allergies Allergy/AdvReac Type Severity Reaction Status Date / Time sulfamethoxazole Allergy Hives Verified 07/11/22 05:49 [From Bactrim] trimethoprim [From Bactrim] Allergy Hives Verified 07/11/22 05:49 Active Medications: Current Medications Acetaminophen (Acetaminophen 325 Mg Tablet) 650 mg PO Q6H PRN PRN Reason: Pain, Mild (Pain Scale 1-3) Last Admin: 07/16/22 14:31 Dose: 650 mg Apixaban (Apixaban 5 Mg Tablet) 5 mg PO BID [facility] Last Admin: 07/18/22 08:28 Dose: 5 mg Ascorbic Acid (Ascorbic Acid 500 Mg Tablet) 500 mg PO BID [facility] Last Admin: 07/18/22 08:27 Dose: 500 mg Aspirin (Aspirin Enteric Coated 81 Mg Tablet.Dr) 81 mg PO DAILY [facility] Last Admin: 07/18/22 08:27 Dose: 81 mg Atorvastatin Calcium (Atorvastatin Calcium 80 Mg Tablet) 80 mg PO BEDTIME [facility] Last Admin: 07/17/22 21:40 Dose: 80 mg Calcium Carbonate/Cholecalciferol (Calcium + Vitamin D 250 Mg Tablet) 500 mg PO DAILY [facility] Last Admin: 07/18/22 08:26 Dose: 500 mg Cholestyramine Resin (Cholestyramine (With Sugar) 4 Gm Powd.Pack) 4 gm PO BIDWM [facility] Last Admin: 07/18/22 08:26 Dose: 4 gm Diphenhydramine HCl (Diphenhydramine Hcl 25 Mg Capsule) 25 mg PO TID PRN PRN Reason: Itching Docusate Sodium (Docusate Sodium 100 Mg Capsule) 100 mg PO DAILY [facility] Last Admin: 07/18/22 08:28 Dose: 100 mg Ezetimibe (Ezetimibe 10 Mg Tablet) 10 mg PO DAILY [facility] Last Admin: 07/18/22 08:27 Dose: 10 mg Epoetin Ciara (Epoetin Ciara 10,000 Unit/Ml Vial) 10,000 unit SUBCUT TuThSa@1200 [facility] Last Admin: 07/16/22 14:31 Dose: 10,000 unit Fluticasone Propionate (Fluticasone Propionate Nasal 16 Gm [place]) 1 spray NOSTRIL-B DAILY [facility] Last Admin: 07/18/22 08:50 Dose: Not Given Furosemide (Furosemide 20 Mg/2 Ml Vial) 20 mg IVPUSH BID@0900,1800 [facility]; Protocol Last Admin: 11/28/22 08:27 Dose: 20 mg Meropenem 500 mg/ Sodium (Chloride) 50 mls @ 100 mls/hr IV Q24H [facility] Last Infusion: 07/17/22 18:46 Dose: Infused Insulin Glargine (Insulin Glargine,Hum.Rec.Anlog 100 Unit/Ml 10 Ml Vial) 19 unit SUBCUT DAILY [facility] Last Admin: 07/18/22 08:28 Dose: 19 unit Insulin Human Lispro (Insulin Lispro 100 Unit/Ml 3 Ml Vial) 0 unit SUBCUT QIDACHS [facility]; Protocol Last Admin: 07/18/22 11:30 Dose: 4 unit Linezolid (Linezolid 600 Mg Tablet) 600 mg PO Q12H [facility] Last Admin: 07/18/22 04:20 Dose: 600 mg Melatonin (Melatonin 3 Mg Tablet) 3 mg PO BEDTIME [facility] Last Admin: 07/17/22 21:40 Dose: 3 mg Metoprolol Tartrate (Metoprolol Tartrate 25 Mg Tablet) 25 mg PO TID [facility]; Protocol Last Admin: 07/18/22 08:27 Dose: 25 mg Midodrine (Midodrine Hcl 5 Mg Tablet) 5 mg PO TID@0900,1200,1800 [facility] Last Admin: 07/18/22 11:30 Dose: 5 mg Midodrine (Midodrine Hcl 5 Mg Tablet) 5 mg PO TUTHSA@0900 [facility] Last Admin: 07/16/22 11:49 Dose: 5 mg Midodrine (Midodrine Hcl 5 Mg Tablet) 10 mg PO TuThSa PRN PRN Reason: LOW BLOOD PRESSURE Morphine Sulfate (Morphine Sulfate 2 Mg/Ml Cartridge) 2 mg IVPUSH Q6H PRN; Protocol PRN Reason: Pain, Severe (Pain Scale 7-10) Multivitamins/Vitamin C (Multivitamin Tablet) 1 tab PO DAILY [facility] Last Admin: 07/18/22 08:28 Dose: 1 tab Nitroglycerin (Nitroglycerin 0.4 Mg Tab.Subl) 0.4 mg SUBLINGUAL Q5M PRN PRN Reason: Chest Pain Ondansetron HCl (Ondansetron Hcl 4 Mg/2 Ml Vial) 4 mg IVPUSH Q8H PRN PRN Reason: Nausea and Vomiting Oxycodone HCl (Oxycodone Hcl Immed Release 5 Mg Tablet) 5 mg PO Q6H PRN PRN Reason: Pain, Severe (Pain Scale 7-10) Last Admin: 07/18/22 11:30 Dose: 5 mg Pharmacy Consult (Consult Rx Perform Med Rec) 1 each MISCELLANE ONCE PRN PRN Reason: Consult order Pharmacy Consult (Consult Rx Vancomycin Dosing) 1 each MISCELLANE DAILY PRN PRN Reason: Consult order Polyethylene Glycol (Polyethylene Glycol 3350 17 Gm Powd.Pack) 17 gm PO DAILY [facility] Last Admin: 07/18/22 08:26 Dose: 17 gm Primidone (Primidone 50 Mg Tablet) 50 mg PO BEDTIME [facility] Last Admin: 07/17/22 21:40 Dose: 50 mg Senna (Sennosides 8.6 Mg Tablet) 17.2 mg PO DAILY [facility] Last Admin: 07/18/22 08:27 Dose: 17.2 mg Sodium Chloride (0.9 % Sodium Chloride Flush 3 Ml Syringe) 3 ml IVFLUSH QSHIFT [facility] Last Admin: 07/18/22 08:30 Dose: 3 ml Home Medications Medication Instructions Recorded Confirmed Last Taken Type Lactobacillus acidophilus 1 cap PO DAILY 07/11/22 07/11/22 Unknown History (Acidophilus capsule) apixaban 5 mg tablet (Eliquis) 1 tab PO BID 07/11/22 07/11/22 Unknown History ascorbic acid (vitamin C) 500 mg 500 mg PO BID 07/11/22 07/11/22 Unknown History tablet aspirin 81 mg tablet,delayed 81 mg PO DAILY 07/11/22 07/11/22 Unknown History release atorvastatin 80 mg tablet 80 mg PO BEDTIME 07/11/22 07/11/22 Unknown History calcium carbonate-vitamin D3 600 1 tab PO DAILY 07/11/22 07/11/22 Unknown History mg-125 unit tablet cholestyramine (with sugar) 4 gram 4 g PO BIDWM 07/11/22 07/11/22 Unknown History oral powder collagenase clostridium histo. 250 1 appl topical BID 07/11/22 07/11/22 Unknown History unit/gram topical ointment (Santyl) diphenhydramine HCl 25 mg capsule 25 mg PO TID PRN Itching 07/11/22 07/11/22 Unknown History (Benadryl) docusate sodium 100 mg capsule 100 mg PO DAILY 07/11/22 07/11/22 Unknown History epoetin ciara 10,000 unit/mL 10,000 unit IV TUTHSA 07/11/22 07/11/22 Unknown History injection solution ezetimibe 10 mg tablet 10 mg PO DAILY 07/11/22 07/11/22 Unknown History fentanyl 12 mcg/hr transdermal 1 patch transdermal Q72H 07/11/22 07/11/22 Unknown History patch fluticasone propionate 50 1 spray intranasal DAILY 07/11/22 07/11/22 Unknown History mcg/actuation nasal spray,suspension hydromorphone 2 mg tablet 2 mg PO Q12H PRN Pain 07/11/22 07/11/22 Unknown History insulin glargine 100 unit/mL 25 unit subcut DAILY 07/11/22 07/11/22 Unknown History subcutaneous solution insulin lispro 100 unit/mL 1 sliding scale dose subcut QIDACHS 07/11/22 07/11/22 Unknown History subcutaneous pen melatonin 3 mg tablet 3 mg PO BEDTIME 07/11/22 07/11/22 Unknown History metoprolol succinate 25 mg 25 mg PO DAILY 07/11/22 07/11/22 Unknown History tablet,extended release 24 hr midodrine 10 mg tablet 10 mg PO TUTHSA PRN LOW BLOOD 07/11/22 07/11/22 Unknown History PRESSURE midodrine 5 mg tablet 5 mg PO TID@0900,1200,1800 07/11/22 07/11/22 Unknown History midodrine 5 mg tablet 5 mg PO TUTHSA@0900 07/11/22 07/11/22 Unknown History nitroglycerin 0.4 mg sublingual 0.4 mg sublingual Q5M PRN Chest 07/11/22 07/11/22 Unknown History tablet (Nitrostat) Pain oxycodone 5 mg tablet 5 mg PO Q6H PRN Pain 07/11/22 07/11/22 Unknown History primidone 50 mg tablet 50 mg PO BEDTIME 07/11/22 07/11/22 Unknown History sennosides 8.6 mg tablet 17.2 mg PO DAILY 07/11/22 07/11/22 Unknown History vitamin B complex and vitamin C 1 cap PO DAILY 07/11/22 07/11/22 Unknown History no.20-folic acid 1 mg capsule Physical Exam Vital Signs: Vital Signs: Last Vital Signs Temp 98.1 F 07/18/22 11:47 Pulse 83 07/18/22 11:47 Resp 20 07/18/22 11:47 BP 117/68 07/18/22 11:47 Pulse Ox 100 07/18/22 11:47 O2 Del Method 07/18/22 11:47 BMI result Body Mass Index 25.0 GENERAL APPEARANCE: in no acute distress, pleasant. NECK: no carotid bruit, no jugular venous distention. SKIN: no suspicious lesions, warm and dry. HEART: no murmurs, regular rate and rhythm. LUNGS: clear to auscultation bilaterally. ABDOMEN: soft, nontender. EXTREMITIES: 2 + edema at ankles. PERIPHERAL PULSES: equal. NEUROLOGIC: No gross deficits, AAO X 3 Objective Labs and Meds Result diagrams: 07/17/22 10:09 07/17/22 10:09 Lab results: Laboratory Results - last 24 hr 07/15/22 07/17/22 07/17/22 Unknown 17:34 20:54 Creatinine Cancelled POC Glucose 249 H 275 H Magnesium Ur 24 Hour Volume Cancelled Ur Creatinine mg/dL Cancelled Ur Creatinine 24 Hour Cancelled Creat Clearance 24 Hr Cancelled 07/18/22 07/18/22 07/18/22 07:26 11:07 11:14 Creatinine POC Glucose 248 H 216 H Magnesium 1.8 Ur 24 Hour Volume Ur Creatinine mg/dL Ur Creatinine 24 Hour Creat Clearance 24 Hr Assessment and Plan (1) Sacral decubitus ulcer: Status: Acute (2) NSVT (nonsustained ventricular tachycardia): Status: Acute Plan 67-year-old gentleman who is presenting for infected decubitus ulcer and osteomyelitis. He is on broad-spectrum antibiotics. He was noticed to have 2 short runs of nonsustained VT. He has been completely asymptomatic. He has chronic hypotension with hemodialysis and has been on midodrine chronically. Ideally should be on beta-willow but with his hypotension and midodrine requirement I think it would be challenging to put him on beta-willow. Monitor and replace electrolytes. Thank you for allowing me to participate in the care of your patient. Please feel free to contact me if you have any questions. Procedures Date of Service Date of Service: 07/18/22
--- NOTE | 2022-07-18 13:45 | MHC.CLN ---
F/U INTAKE APPEARS GOOD WITH MANY MEALS 100% DIET RX: 2200DM 1500ML FR-APPROPRIATE PT RECEIVING ENSURE BID AND ANITA BID TO INCREASE KCALS AND PROMOTE WOUND HEALING MONITOR PO INTAKE CLOSELY
--- NOTE | 2022-07-18 14:13 | PM.PNNEP ---
Subjective Subjective Date of Service: 07/18/22 Interval history: f/u on sepsis d/t decub osteo interval history: no new issues, 19 beats of vtach Physical Exam Vital Signs: Vital Signs: Last Vital Signs Temp 98.1 F 07/18/22 11:47 Pulse 83 07/18/22 11:47 Resp 20 07/18/22 11:47 BP 117/68 07/18/22 11:47 Pulse Ox 100 07/18/22 11:47 O2 Del Method 07/18/22 11:47 BMI result Body Mass Index 25.0 Const: Orientation/consciousness: patient oriented x3 HEENT: Head: Yes normal to inspection Neck: Neck: Yes full ROM and Yes supple Resp: Auscultation: clear to auscultation bilaterally Cardio: Jugular venous distension: no JVD Heart sounds: no click, no murmurs and no rubs GI: Inspection: Yes other (Ostomy bag is present) Palpation (GI): Soft to palpation and nontender Auscultation: normal bowel sounds Neuro: General: patient oriented x3 Motor exam (neuro): no asterixis Objective Data Labs CBC & Chem 7: 07/17/22 10:09 07/17/22 10:09 Labs: Laboratory Results - last 24 hr 07/15/22 07/17/22 07/17/22 Unknown 17:34 20:54 Creatinine Cancelled POC Glucose 249 H 275 H Magnesium Ur 24 Hour Volume Cancelled Ur Creatinine mg/dL Cancelled Ur Creatinine 24 Hour Cancelled Creat Clearance 24 Hr Cancelled 07/18/22 07/18/22 07/18/22 07:26 11:07 11:14 Creatinine POC Glucose 248 H 216 H Magnesium 1.8 Ur 24 Hour Volume Ur Creatinine mg/dL Ur Creatinine 24 Hour Creat Clearance 24 Hr Microbiology Microbiology Results: Microbiology 07/11/22 06:35 Blood - Arterial Line Blood Culture - Final No growth after 5 days. 07/11/22 06:35 Blood - Arterial Line Blood Culture - Final No growth after 5 days. Procedures Date of Service Date of Service: 07/18/22 Assessment & Plan Assessment and plan (1) End stage renal disease: Status: Acute Plan No s/s of uremia Fluid status acceptable HD TTS Would check 24 hour urine for Crcl since the serum cr is low Can be done as out pt Mild hyponatremia Restrict PO water intake to 1.2 L per 24 hrs Anemia Epogen per protool Time Spent With Patient Time: Total time spent is greater than 50% in coordination of care (as documented) at patient's floor/unit and/or counseling patient: Progress Note: Quality Stroke Does the patient have a stroke diagnosis?: No
[2022-07-18 15:36] VITALS: BP 115/61; PULSE 95; RESP 17; TEMP 36.4; O2SAT 96
[2022-07-18 16:26] LABS: Glucose, Whole Blood 170 mg/dL (60-115)
[2022-07-18 19:19] VITALS: BP 125/73; PULSE 92; RESP 16; TEMP 36.3; O2SAT 98
[2022-07-18 20:54] LABS: Glucose, Whole Blood 176 mg/dL (60-115)
[2022-07-18] MEDS: Primidone 50 MG TABLET PO (21:31)
[2022-07-18] MEDS: Melatonin 3 MG TABLET PO (21:31)
[2022-07-18] MEDS: Atorvastatin Calcium 80 MG TABLET PO (21:39)
[2022-07-18 23:52] VITALS: BP 132/75; PULSE 106; RESP 18; TEMP 36.4; O2SAT 99
[2022-07-19] MEDS: Linezolid 600 MG TABLET PO ×2 (03:54→15:56)
[2022-07-19] MEDS: 0.9 % Sodium Chloride Flush 3 ML SYRINGE IVFLUSH ×2 (03:56→20:09)
[2022-07-19 04:00] VITALS: BP 112/61; PULSE 93; RESP 18; TEMP 36.6; O2SAT 100
[2022-07-19 08:00] VITALS: BP 109/68; PULSE 85; RESP 20; TEMP 36.4; O2SAT 99
[2022-07-19 08:14] LABS: Glucose, Whole Blood 89 mg/dL (60-115)
--- NOTE | 2022-07-19 09:23 | HO.PM.IMPN ---
Subjective Subjective Date of Service: 07/19/22 Interval History: f/u on sepsis d/t decub osteo interval history: No further episode of SVTs overnight Review of Systems no fever no chest pain no sob Physical Exam Vital Signs: Vital Signs: Last Vital Signs Temp 97.5 F 07/19/22 08:00 Pulse 85 07/19/22 08:00 Resp 20 07/19/22 08:00 BP 109/68 07/19/22 08:00 Pulse Ox 99 07/19/22 08:00 O2 Del Method 07/19/22 08:00 BMI result Body Mass Index 25.0 Const: Other: General: AO X 3, no acute distress Resp: CTA bilateral CVS: S1,S2,RRR, some swelling in arms/legs GI: +BS, NT, no distention Skin: see pictures Neuro: motor grossly intact Psych: appropriate affect Objective Data Active Medications Acetaminophen (Acetaminophen 325 Mg Tablet) 650 mg PO Q6H PRN PRN Reason: Pain, Mild (Pain Scale 1-3) Last Admin: 07/16/22 14:31 Dose: 650 mg Documented By: NAYA Apixaban (Apixaban 5 Mg Tablet) 5 mg PO BID [facility] Last Admin: 07/18/22 21:31 Dose: 5 mg Documented By: MARANDA Ascorbic Acid (Ascorbic Acid 500 Mg Tablet) 500 mg PO BID [facility] Last Admin: 07/18/22 21:31 Dose: 500 mg Documented By: MARANDA Aspirin (Aspirin Enteric Coated 81 Mg Tablet.) 81 mg PO DAILY [facility] Last Admin: 07/18/22 08:27 Dose: 81 mg Documented By: GAGANDEEP Atorvastatin Calcium (Atorvastatin Calcium 80 Mg Tablet) 80 mg PO BEDTIME [facility] Last Admin: 07/18/22 21:39 Dose: 80 mg Documented By: MARANDA Calcium Carbonate/Cholecalciferol (Calcium + Vitamin D 250 Mg Tablet) 500 mg PO DAILY [facility] Last Admin: 07/18/22 08:26 Dose: 500 mg Documented By: GAGANDEEP Cholestyramine Resin (Cholestyramine (With Sugar) 4 Gm Powd.Pack) 4 gm PO BIDWM [facility] Last Admin: 07/18/22 17:43 Dose: 4 gm Documented By: EVAN Diphenhydramine HCl (Diphenhydramine Hcl 25 Mg Capsule) 25 mg PO TID PRN PRN Reason: Itching Docusate Sodium (Docusate Sodium 100 Mg Capsule) 100 mg PO DAILY [facility] Last Admin: 07/18/22 08:28 Dose: 100 mg Documented By: GAGANDEEP Ezetimibe (Ezetimibe 10 Mg Tablet) 10 mg PO DAILY [facility] Last Admin: 07/18/22 08:27 Dose: 10 mg Documented By: GAGANDEEP Epoetin Wai (Epoetin Wai 10,000 Unit/Ml Vial) 10,000 unit SUBCUT TuThSa@1200 [facility] Last Admin: 07/16/22 14:31 Dose: 10,000 unit Documented By: NAYA Fluticasone Propionate (Fluticasone Propionate Nasal 16 Gm [place]) 1 spray NOSTRIL-B DAILY [facility] Last Admin: 07/18/22 08:50 Dose: Not Given Documented By: GAGANDEEP Non-Admin Reason: Patient Refused Furosemide (Furosemide 20 Mg/2 Ml Vial) 20 mg IVPUSH BID@0900,1800 [facility]; Protocol Last Admin: 07/18/22 17:43 Dose: 20 mg Documented By: EVAN Meropenem 500 mg/ Sodium (Chloride) 50 mls @ 100 mls/hr IV Q24H [facility] Last Infusion: 07/18/22 17:29 Dose: 0 mls/hr Documented By: EVAN Insulin Glargine (Insulin Glargine,Hum.Rec.Anlog 100 Unit/Ml 10 Ml Vial) 19 unit SUBCUT DAILY [facility] Last Admin: 07/18/22 08:28 Dose: 19 unit Documented By: GAGANDEEP Insulin Human Lispro (Insulin Lispro 100 Unit/Ml 3 Ml Vial) 0 unit SUBCUT QIDACHS [facility]; Protocol Last Admin: 07/19/22 08:17 Dose: Not Given Documented By: TYLER Non-Admin Reason: See Note Linezolid (Linezolid 600 Mg Tablet) 600 mg PO Q12H [facility] Last Admin: 07/19/22 03:54 Dose: 600 mg Documented By: MARANDA Melatonin (Melatonin 3 Mg Tablet) 3 mg PO BEDTIME [facility] Last Admin: 07/18/22 21:31 Dose: 3 mg Documented By: MARANDA Metoprolol Tartrate (Metoprolol Tartrate 25 Mg Tablet) 25 mg PO TID [facility]; Protocol Last Admin: 07/18/22 21:31 Dose: 25 mg Documented By: MARANDA Midodrine (Midodrine Hcl 5 Mg Tablet) 5 mg PO TID@0900,1200,1800 [facility] Last Admin: 07/18/22 17:43 Dose: 5 mg Documented By: EVAN Midodrine (Midodrine Hcl 5 Mg Tablet) 5 mg PO TUTHSA@0900 [facility] Last Admin: 07/16/22 11:49 Dose: 5 mg Documented By: NAYA Midodrine (Midodrine Hcl 5 Mg Tablet) 10 mg PO TuThSa PRN PRN Reason: LOW BLOOD PRESSURE Morphine Sulfate (Morphine Sulfate 2 Mg/Ml Cartridge) 2 mg IVPUSH Q6H PRN; Protocol PRN Reason: Pain, Severe (Pain Scale 7-10) Multivitamins/Vitamin C (Multivitamin Tablet) 1 tab PO DAILY [facility] Last Admin: 07/18/22 08:28 Dose: 1 tab Documented By: GAGANDEEP Nitroglycerin (Nitroglycerin 0.4 Mg Tab.Subl) 0.4 mg SUBLINGUAL Q5M PRN PRN Reason: Chest Pain Ondansetron HCl (Ondansetron Hcl 4 Mg/2 Ml Vial) 4 mg IVPUSH Q8H PRN PRN Reason: Nausea and Vomiting Oxycodone HCl (Oxycodone Hcl Immed Release 5 Mg Tablet) 5 mg PO Q6H PRN PRN Reason: Pain, Severe (Pain Scale 7-10) Last Admin: 07/18/22 11:30 Dose: 5 mg Documented By: CHARLES Pharmacy Consult (Consult Rx Perform Med Rec) 1 each MISCELLANE ONCE PRN PRN Reason: Consult order Pharmacy Consult (Consult Rx Vancomycin Dosing) 1 each MISCELLANE DAILY PRN PRN Reason: Consult order Polyethylene Glycol (Polyethylene Glycol 3350 17 Gm Powd.Pack) 17 gm PO DAILY [facility] Last Admin: 07/18/22 08:26 Dose: 17 gm Documented By: GAGANDEEP Primidone (Primidone 50 Mg Tablet) 50 mg PO BEDTIME [facility] Last Admin: 07/18/22 21:31 Dose: 50 mg Documented By: MARANDA Senna (Sennosides 8.6 Mg Tablet) 17.2 mg PO DAILY [facility] Last Admin: 07/18/22 08:27 Dose: 17.2 mg Documented By: GAGANDEEP Sodium Chloride (0.9 % Sodium Chloride Flush 3 Ml Syringe) 3 ml IVFLUSH QSHIFT [facility] Last Admin: 07/19/22 07:44 Dose: Not Given Documented By: TYLER Non-Admin Reason: See Note Labs CBC & Chem 7: 07/17/22 10:09 07/17/22 10:09 Labs: Laboratory Results - last 24 hr 07/18/22 07/18/22 07/18/22 11:07 11:14 16:19 POC Glucose 216 H 170 H Magnesium 1.8 07/18/22 07/19/22 20:49 08:10 POC Glucose 176 H 89 Magnesium Assessment and Plan (1) Sacral decubitus ulcer: Status: Acute (2) Sepsis: Status: Resolved (3) End stage renal disease: Status: Inactive Plan 59-year-old male with history of hyperlipidemia, insulin-dependent type 2 diabetes, orthostatic hypotension, ESRD on dialysis T//Mon following with Milton Saab, essential tremor, coronary artery disease s/p CABG 12 years ago, chronic systolic heart failure, 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 Avina in ID admitted for chest pain found to be septic with stage IV decubitus ulcer of the sacrum with osteomyelitis. #Sepsis- secondary to stage IV decubitus ulcer of the sacrum with osteomyelitis -leukocytosis has been chronic over the last few months secondary to osteomyelitis but remains elevated despite completing IV antibiotics at 13.0.? ID recommended IV meropenem and PO zyvox for 6 weeks. Clinically stable at moment. WBC is down to 12 and otherwise has no features of sepsis. #Stage IV decubitus ulcer sacrum- present on arrival, Seen by surgery an s/p debridement, preventative measures with frequent turning, appropriate bed. Surgery to reassess for need for debridment # ESRD--to continue usual schedule of dialysis (Monday, and Monday) # Anasarca-secondary to ESRD--fluid removal at dialysis #Malnutrition with protein deficiency with protein deficiency--ensure, ? raised about tpn to promote wound healing will discuss the meris at rounds # chest pain-resolved with no evidence of ACS #Permanent AFIB with RVR--likely from sepsis and required IV cardizem but now back on usual dose of Toprol and HR in 90s # hypotension-resolved -secondary to nitroglycerin administration, not septic shock -continue Midodrine # paroxysmal atrial fibrillation--rate uncontrolled., continue eliquis #SVT -Patient was on Toprolol at home and only changed to metoprolol, cardiology was not aware of this. Will continue metoprolol at present dose #VT--check magnesium, consider cardiology evaluation # coronary artery disease-chest pain resolved -continue ASA, Eliquis, atorvastatin.? Hold beta-willow due to soft blood pressure # insulin-dependent type 2 diabetes with hyperglycemia -POC glucose -diabetic diet -Humalog on sliding scale -dose adjusted Lantus 19 units daily #Chronic systolic heart failure -compensated -continue home meds #discoid lupus erythematous -continue home meds # generalized weakness # Constipation as seeen on CT--add Miralax need for inaptient: sepsis requiring IV Abx Possible dc today Quality Stroke Does the patient have a stroke diagnosis?: No VTE Prior VTE?: No VTE Risk Level:: Medical - moderate - high VTE Device Contraindication: Treatment Not Indicated VTE Drug Contraindication: N/A - Med Ordered
[2022-07-19] MEDS: polyethylene glycoL 3350 17 GM POWD.PACK PO (11:03)
[2022-07-19] MEDS: Multivitamin TABLET 1 TAB PO (11:03)
[2022-07-19] MEDS: Midodrine HCl 5 MG TABLET PO ×2 (11:03→11:04)
[2022-07-19] MEDS: Calcium + Vitamin D 250 MG TABLET 500 MG PO (11:03)
[2022-07-19] MEDS: Sennosides 8.6 MG TABLET 17.2 MG PO (11:04)
[2022-07-19] MEDS: Aspirin Enteric Coated 81 MG TABLET.DR PO (11:04)
[2022-07-19] MEDS: Ascorbic Acid 500 MG TABLET PO ×2 (11:04→20:09)
[2022-07-19] MEDS: Metoprolol Tartrate 25 MG TABLET PO ×3 (11:04→20:09)
[2022-07-19] MEDS: Docusate Sodium 100 MG CAPSULE PO (11:04)
[2022-07-19] MEDS: Insulin Glargine,Hum.rec.anlog 100 UNIT/ML 10 ML VIAL 19 UNIT SUBCUT (11:05)
[2022-07-19] MEDS: Cholestyramine (With Sugar) 4 GM POWD.PACK PO ×2 (11:05→18:31)
[2022-07-19] MEDS: Acetaminophen 325 MG TABLET 650 MG PO (11:05)
[2022-07-19] MEDS: Furosemide 20 MG/2 ML VIAL IVPUSH ×2 (11:05→18:30)
[2022-07-19] MEDS: oxyCODONE HCl Immed Release 5 MG TABLET PO (11:05)
[2022-07-19] MEDS: Ezetimibe 10 MG TABLET PO (11:05)
[2022-07-19] MEDS: Apixaban 5 MG TABLET PO ×2 (11:05→20:09)
--- NOTE | 2022-07-19 11:15 | PM.PNNEP ---
Subjective Subjective Date of Service: 07/21/22 Interval history: f/u on sepsis d/t decub osteo interval history: No further episode of SVTs overnight Physical Exam Vital Signs: Vital Signs: Last Vital Signs Temp 97.5 F 07/19/22 08:00 Pulse 85 07/19/22 08:00 Resp 20 07/19/22 08:00 BP 109/68 07/19/22 08:00 Pulse Ox 99 07/19/22 08:00 O2 Del Method 07/19/22 08:00 BMI result Body Mass Index 25.0 Const: Orientation/consciousness: patient oriented x3 HEENT: Head: Yes normal to inspection Neck: Neck: Yes full ROM and Yes supple Resp: Auscultation: clear to auscultation bilaterally Cardio: Jugular venous distension: no JVD Heart sounds: no click, no murmurs and no rubs GI: Inspection: Yes other (Ostomy bag is present) Palpation (GI): Soft to palpation and nontender Auscultation: normal bowel sounds Neuro: General: patient oriented x3 Motor exam (neuro): no asterixis Objective Data Labs CBC & Chem 7: 07/17/22 10:09 07/20/22 08:01 Labs: Laboratory Results - last 24 hr 07/18/22 07/18/22 07/18/22 11:07 11:14 16:19 POC Glucose 216 H 170 H Magnesium 1.8 07/18/22 07/19/22 20:49 08:10 POC Glucose 176 H 89 Magnesium Microbiology Microbiology Results: Microbiology 07/11/22 06:35 Blood - Arterial Line Blood Culture - Final No growth after 5 days. 07/11/22 06:35 Blood - Arterial Line Blood Culture - Final No growth after 5 days. Procedures Date of Service Date of Service: 07/19/22 Assessment & Plan Assessment and plan (1) End stage renal disease: Status: Inactive Plan No s/s of uremia Fluid status acceptable HD on hold today Can check 24 hr urine for Cr Cl ; can be done as out patient Resume HD TTS as out patient until 24 hr urine studies are completed adn reassess Can follow up with his cosmetic sales consultant - as out pt Mild hyponatremia Restrict PO water intake to 1.2 L per 24 hrs Anemia Epogen per protool Time Spent With Patient Time: Total time spent is greater than 50% in coordination of care (as documented) at patient's floor/unit and/or counseling patient: Progress Note: Quality Stroke Does the patient have a stroke diagnosis?: No
[2022-07-19 11:30] LABS: Glucose, Whole Blood 149 mg/dL (60-115)
[2022-07-19 11:39] VITALS: BMI 25.0
[2022-07-19 11:39] LABS: Anion Gap 15 (12-20); Blood Urea Nitrogen 67 mg/dL (9-16); Calcium 7.6 mg/dL (8.4-10.2); Carbon Dioxide 21 mmol/L (22-29); Chloride 95 mmol/L (96-108); Creatinine Clr Calc Pharmacy 31.8; Estimated Glomerular Filt Rate 23; Glucose Random 187 mg/dL (60-115); Potassium 3.7 mmol/L (3.3-5.1); Sodium 127 mmol/L (135-145)
--- NOTE | 2022-07-19 11:44 | MHC.CLN ---
RE: CONSULT FOR TPN: PT IS MODERATELY MALNOURISHED PT WITH MILD DEPLETED SUBCUTANEOUS FAT AND MUSCLE MASS WITH INCREASED NUTRITION NEEDS R/T PRESSURE INJURY, ESRD ON HD AND OSTEOMYELITIS (ACUTE ILLNESS) DIET RX: 2200DM 1500ML FR-APPROPRIATE PO INTAKE 50-100% PT RECEIVING ENSURE BID AND ANITA TO INCREASE KCALS AND PROMOTE WOUND HEALING SUPP PROVIDES 9600KCALS, 45G PROTEIN CONTINUE TO MONITOR PO INTAKE CLOSELY MD REQUESTING PPN FOR INCREASED PROTEIN R/T WOUND RECOMMEND D10AA4.25 AT 50ML/HR TO PROVIDE 612KCALS, 51G PROTEIN DISCUSSED WITH PHARMACY PT WILL NEED A DEDICATED CENTRAL LINE PLACED IF TPN NEEDED FOR KOSHER BUTCHER TPN PROVIDES HIGHER PROTEIN BY VOLUME FOR WOUND HEALING SEE ALSO FULL CLINICAL NUTRITION ASSESSMENT
[2022-07-19 12:00] VITALS: BP 122/76; PULSE 92; RESP 20; TEMP 36.1; O2SAT 100
[2022-07-19 12:08] LABS: Albumin Level 1.9 g/dL (3.5-5.0); Magnesium 1.7 mg/dL (1.6-2.6)
[2022-07-19] MEDS: Morphine Sulfate 2 MG/ML CARTRIDGE IVPUSH (12:36)
[2022-07-19 16:00] VITALS: BP 117/63; PULSE 102; RESP 20; TEMP 36.1; O2SAT 100
[2022-07-19 16:31] LABS: Glucose, Whole Blood 192 mg/dL (60-115)
[2022-07-19] MEDS: Insulin Lispro 100 UNIT/ML 3 ML VIAL SUBCUT ×2 (18:31→20:16)
[2022-07-19 19:46] LABS: Glucose, Whole Blood 215 mg/dL (60-115)
[2022-07-19 19:48] VITALS: BP 109/65; PULSE 92; RESP 19; TEMP 36.6; O2SAT 100
[2022-07-19] MEDS: Atorvastatin Calcium 80 MG TABLET PO (20:09)
[2022-07-19] MEDS: Primidone 50 MG TABLET PO (20:09)
[2022-07-19] MEDS: Melatonin 3 MG TABLET PO (20:09)
[2022-07-19 23:47] VITALS: BP 125/67; PULSE 90; RESP 16; TEMP 36.1; O2SAT 100
[2022-07-20] VITALS (7 sets, daily range): BP systolic 97–137; BP diastolic 58–75; PULSE 86–103; RESP 14–20; TEMP 36.1–36.8; O2SAT 97–100
[2022-07-20] MEDS: Linezolid 600 MG TABLET PO ×2 (00:55→16:13)
[2022-07-20] MEDS: Morphine Sulfate 2 MG/ML CARTRIDGE IVPUSH ×3 (00:55→18:47)
[2022-07-20] MEDS: oxyCODONE HCl Immed Release 5 MG TABLET PO (04:57)
[2022-07-20] MEDS: Acetaminophen 325 MG TABLET 650 MG PO (04:57)
[2022-07-20 08:29] LABS: Glucose, Whole Blood 335 mg/dL (60-115)
[2022-07-20 09:25] LABS: Albumin Level 1.8 g/dL (3.5-5.0); Anion Gap 15 (12-20); Calcium 7.4 mg/dL (8.4-10.2); Carbon Dioxide 20 mmol/L (22-29); Chloride 92 mmol/L (96-108); Creatinine Clr Calc Pharmacy 28.1; Estimated Glomerular Filt Rate 20; Magnesium 1.8 mg/dL (1.6-2.6); Potassium 4.2 mmol/L (3.3-5.1); Sodium 123 mmol/L (135-145)
[2022-07-20 09:32] LABS: Glucose Random 380 mg/dL (60-115)
[2022-07-20 09:46] LABS: Blood Urea Nitrogen 87 mg/dL (9-16)
[2022-07-20] MEDS: Furosemide 20 MG/2 ML VIAL IVPUSH ×2 (10:02→16:47)
[2022-07-20] MEDS: Calcium + Vitamin D 250 MG TABLET 500 MG PO (10:03)
[2022-07-20] MEDS: Docusate Sodium 100 MG CAPSULE PO (10:03)
[2022-07-20] MEDS: Sennosides 8.6 MG TABLET 17.2 MG PO (10:03)
[2022-07-20] MEDS: Multivitamin TABLET 1 TAB PO (10:04)
[2022-07-20] MEDS: Ezetimibe 10 MG TABLET PO (10:04)
[2022-07-20] MEDS: Metoprolol Tartrate 25 MG TABLET PO ×3 (10:05→19:51)
[2022-07-20] MEDS: Midodrine HCl 5 MG TABLET PO ×3 (10:05→16:47)
[2022-07-20] MEDS: Aspirin Enteric Coated 81 MG TABLET.DR PO (10:05)
[2022-07-20] MEDS: Apixaban 5 MG TABLET PO ×2 (10:05→19:52)
[2022-07-20] MEDS: Ascorbic Acid 500 MG TABLET PO ×2 (10:06→19:52)
[2022-07-20] MEDS: Insulin Glargine,Hum.rec.anlog 100 UNIT/ML 10 ML VIAL 19 UNIT SUBCUT (10:06)
[2022-07-20] MEDS: Cholestyramine (With Sugar) 4 GM POWD.PACK PO ×2 (10:06→16:11)
[2022-07-20] MEDS: Insulin Lispro 100 UNIT/ML 3 ML VIAL SUBCUT ×4 (10:07→19:52)
[2022-07-20] MEDS: polyethylene glycoL 3350 17 GM POWD.PACK PO (10:09)
--- NOTE | 2022-07-20 11:28 | PM.PNNEP ---
Subjective Subjective Date of Service: 07/21/22 Interval history: f/u on sepsis d/t decub osteo interval history: No further episode of SVTs overnight Events noted Physical Exam Vital Signs: Vital Signs: Last Vital Signs Temp 97.8 F 07/20/22 08:00 Pulse 103 H 07/20/22 08:00 Resp 20 07/20/22 08:00 BP 97/58 L 07/20/22 08:00 Pulse Ox 99 07/20/22 08:00 O2 Del Method 07/20/22 08:00 BMI result Body Mass Index 25.0 Const: Orientation/consciousness: patient oriented x3 HEENT: Head: Yes normal to inspection Neck: Neck: Yes full ROM and Yes supple Resp: Auscultation: clear to auscultation bilaterally Cardio: Jugular venous distension: no JVD Heart sounds: no click, no murmurs and no rubs GI: Inspection: Yes other (Ostomy bag is present) Palpation (GI): Soft to palpation and nontender Auscultation: normal bowel sounds Neuro: General: patient oriented x3 Motor exam (neuro): no asterixis Objective Data Labs CBC & Chem 7: 07/17/22 10:09 07/20/22 08:01 Labs: Laboratory Results - last 24 hr 07/19/22 07/19/22 07/19/22 11:16 11:21 16:18 Sodium 127 L Potassium 3.7 Chloride 95 L Carbon Dioxide 21 L Anion Gap 15 BUN 67 H Creatinine 2.80 H Estim Creat Clear Calc 31.8 Estimated GFR 23 POC Glucose 149 H 192 H Random Glucose 187 H Calcium 7.6 L Phosphorus 3.0 Magnesium 1.7 Albumin 1.9 L 07/19/22 07/20/22 07/20/22 19:31 08:01 08:15 Sodium 123 L Potassium 4.2 Chloride 92 L Carbon Dioxide 20 L Anion Gap 15 BUN 87 H D Creatinine 3.17 H Estim Creat Clear Calc 28.1 Estimated GFR 20 POC Glucose 215 H 335 H Random Glucose 380 H* Calcium 7.4 L Phosphorus 4.0 Magnesium 1.8 Albumin 1.8 L Microbiology Microbiology Results: Microbiology 07/11/22 06:35 Blood - Arterial Line Blood Culture - Final No growth after 5 days. 07/11/22 06:35 Blood - Arterial Line Blood Culture - Final No growth after 5 days. Procedures Date of Service Date of Service: 07/20/22 Assessment & Plan Assessment and plan (1) End stage renal disease: Status: Inactive Plan No s/s of uremia Fluid status acceptable HD tomorrow Mild hyponatremia Restrict PO water intake to 1.2 L per 24 hrs Increase Na concentration in TPN Anemia Epogen per protool Time Spent With Patient Time: Total time spent is greater than 50% in coordination of care (as documented) at patient's floor/unit and/or counseling patient: Progress Note: Quality Stroke Does the patient have a stroke diagnosis?: No
[2022-07-20 11:53] LABS: Glucose, Whole Blood 389 mg/dL (60-115)
[2022-07-20] MEDS: Fluticasone Propionate Nasal 16 GM SPRAY 1 SPRAY NOSTRIL-B (12:09)
[2022-07-20] MEDS: ondansetron HCL 4 MG/2 ML VIAL IVPUSH (12:10)
--- NOTE | 2022-07-20 13:33 | MHC.CLN ---
F/U FOR TPN: PT IS MODERATELY MALNOURISHED SEE FULL CLINICAL NUTRITION ASSESSMENT DATED 07/12/22 DIET RX: 2200DM 1500ML FR-APPROPRIATE PO INTAKE 50-100% PT RECEIVING ENSURE BID AND ANITA TO INCREASE KCALS AND PROMOTE WOUND HEALING SUPP PROVIDES 9600KCALS, 45G PROTEIN WITH 100% ACCEPTANCE CONTINUE TO MONITOR PO INTAKE CLOSELY PPN FOR INCREASED PROTEIN R/T WOUND HEALING PT RECEIVED D10AA4.25 AT 50ML/HR PROVIDED 612KCALS, 51G PROTEIN YESTERDAY REVIEWED LABS; DISCUSSED WITH PHARMACY X2 RECOMMEND D104.25 AT 30ML/HR TODAY TO PROVIDE 367KCALS, 31G PROTEIN REPLETE LYTES NEEDED; NOTED SERUM NA 123 07/20 PT WILL NEED A DEDICATED CENTRAL LINE PLACED IF TPN NEEDED FOR CORRECTION TPN PROVIDES HIGHER PROTEIN BY VOLUME FOR WOUND HEALING
--- NOTE | 2022-07-20 13:40 | HO.PM.IMPN ---
Subjective Subjective Date of Service: 07/20/22 Interval History: f/u on sepsis d/t decub osteo interval history: Was doing ok, but just had large vomitting, denies abd pain Review of Systems no fever no chest pain no sob Physical Exam Vital Signs: Vital Signs: Last Vital Signs Temp 98.2 F 07/20/22 11:38 Pulse 97 07/20/22 12:02 Resp 20 07/20/22 11:38 BP 137/74 07/20/22 12:02 Pulse Ox 100 07/20/22 12:02 O2 Del Method 07/20/22 11:38 BMI result Body Mass Index 25.0 Const: Other: General: AO X 3, no acute distress Resp: CTA bilateral CVS: S1,S2,RRR, some swelling in arms/legs GI: +BS, NT, no distention Skin: see pictures Neuro: motor grossly intact Psych: appropriate affect Objective Data Active Medications Acetaminophen (Acetaminophen 325 Mg Tablet) 650 mg PO Q6H PRN PRN Reason: Pain, Mild (Pain Scale 1-3) Last Admin: 07/20/22 04:57 Dose: 650 mg Documented By: CHARLES Comments: computer system down Apixaban (Apixaban 5 Mg Tablet) 5 mg PO BID [facility] Last Admin: 07/20/22 10:05 Dose: 5 mg Documented By: NIKOLAY Ascorbic Acid (Ascorbic Acid 500 Mg Tablet) 500 mg PO BID [facility] Last Admin: 07/20/22 10:06 Dose: 500 mg Documented By: NIKOLAY Aspirin (Aspirin Enteric Coated 81 Mg Tablet.Dr) 81 mg PO DAILY [facility] Last Admin: 07/20/22 10:05 Dose: 81 mg Documented By: NIKOLAY Atorvastatin Calcium (Atorvastatin Calcium 80 Mg Tablet) 80 mg PO BEDTIME [facility] Last Admin: 07/19/22 20:09 Dose: 80 mg Documented By: ANTOIC Calcium Carbonate/Cholecalciferol (Calcium + Vitamin D 250 Mg Tablet) 500 mg PO DAILY [facility] Last Admin: 07/20/22 10:03 Dose: 500 mg Documented By: NIKOLAY Cholestyramine Resin (Cholestyramine (With Sugar) 4 Gm Powd.Pack) 4 gm PO BIDWM [facility] Last Admin: 07/20/22 10:06 Dose: 4 gm Documented By: NIKOLAY Diphenhydramine HCl (Diphenhydramine Hcl 25 Mg Capsule) 25 mg PO TID PRN PRN Reason: Itching Docusate Sodium (Docusate Sodium 100 Mg Capsule) 100 mg PO DAILY [facility] Last Admin: 07/20/22 10:03 Dose: 100 mg Documented By: NIKOLAY Ezetimibe (Ezetimibe 10 Mg Tablet) 10 mg PO DAILY [facility] Last Admin: 07/20/22 10:04 Dose: 10 mg Documented By: NIKOLAY Epoetin Wai (Epoetin Wai 10,000 Unit/Ml Vial) 10,000 unit SUBCUT TuThSa@1200 [facility] Last Admin: 07/19/22 16:00 Dose: Not Given Documented By: DREWFA Non-Admin Reason: no dialysis Fluticasone Propionate (Fluticasone Propionate Nasal 16 Gm [place]) 1 spray NOSTRIL-B DAILY [facility] Last Admin: 07/20/22 12:09 Dose: 1 spray Documented By: NIKOLAY Furosemide (Furosemide 20 Mg/2 Ml Vial) 20 mg IVPUSH BID@0900,1800 [facility]; Protocol Last Admin: 07/20/22 10:02 Dose: 20 mg Documented By: NIKOLAY Meropenem 500 mg/ Sodium (Chloride) 50 mls @ 100 mls/hr IV Q24H [facility] Last Infusion: 07/19/22 16:34 Dose: 0 mls/hr Documented By: TYLER Multivitamins 17 ml/ Trace Metals 1.7 ml/ Amino Acids/Electrolytes/Dextrose 1,200 mls @ 50 mls/hr IV DAILY@1800 [facility] Stop: 07/20/22 17:59 Last Admin: 07/19/22 18:31 Dose: 50 mls/hr Documented By: PAULINO-SOFSYLVAIN Potassium Chloride 10 meq/Sodium Chloride 70 meq/Magnesium Sulfate 5 meq/Potassium Phosphate 15 mmol/Calcium Gluconate 4.65 meq/Multivitamins 14 ml/ Trace Metals 1.4 ml/ Amino Acids/Electrolytes/Dextrose 720 mls @ 30 mls/hr IVCONT DAILY@1800 [facility] Stop: 07/21/22 17:59 Insulin Glargine (Insulin Glargine,Hum.Rec.Anlog 100 Unit/Ml 10 Ml Vial) 19 unit SUBCUT DAILY [facility] Last Admin: 07/20/22 10:06 Dose: 19 unit Documented By: NIKOLAY Insulin Human Lispro (Insulin Lispro 100 Unit/Ml 3 Ml Vial) 0 unit SUBCUT QIDACHS [facility]; Protocol Last Admin: 07/20/22 12:42 Dose: 10 unit Documented By: NIKOLAY Linezolid (Linezolid 600 Mg Tablet) 600 mg PO Q12H [facility] Last Admin: 07/20/22 00:55 Dose: 600 mg Documented By: MER Melatonin (Melatonin 3 Mg Tablet) 3 mg PO BEDTIME [facility] Last Admin: 07/19/22 20:09 Dose: 3 mg Documented By: MER Metoprolol Tartrate (Metoprolol Tartrate 25 Mg Tablet) 25 mg PO TID [facility]; Protocol Last Admin: 07/20/22 10:05 Dose: 25 mg Documented By: NIKOLAY Midodrine (Midodrine Hcl 5 Mg Tablet) 5 mg PO TID@0900,1200,1800 [facility] Last Admin: 07/20/22 12:42 Dose: 5 mg Documented By: NIKOLAY Midodrine (Midodrine Hcl 5 Mg Tablet) 5 mg PO TUTHSA@0900 [facility] Last Admin: 07/19/22 11:04 Dose: 5 mg Documented By: TYLER Midodrine (Midodrine Hcl 5 Mg Tablet) 10 mg PO TuThSa PRN PRN Reason: LOW BLOOD PRESSURE Morphine Sulfate (Morphine Sulfate 2 Mg/Ml Cartridge) 2 mg IVPUSH Q6H PRN; Protocol PRN Reason: Pain, Severe (Pain Scale 7-10) Last Admin: 07/20/22 12:09 Dose: 2 mg Documented By: NIKOLAY Multivitamins/Vitamin C (Multivitamin Tablet) 1 tab PO DAILY [facility] Last Admin: 07/20/22 10:04 Dose: 1 tab Documented By: NIKOLAY Nitroglycerin (Nitroglycerin 0.4 Mg Tab.Subl) 0.4 mg SUBLINGUAL Q5M PRN PRN Reason: Chest Pain Ondansetron HCl (Ondansetron Hcl 4 Mg/2 Ml Vial) 4 mg IVPUSH Q8H PRN PRN Reason: Nausea and Vomiting Last Admin: 07/20/22 12:10 Dose: 4 mg Documented By: NIKOLAY Oxycodone HCl (Oxycodone Hcl Immed Release 5 Mg Tablet) 5 mg PO Q6H PRN PRN Reason: Pain, Severe (Pain Scale 7-10) Last Admin: 07/20/22 04:57 Dose: 5 mg Documented By: CHARLES Pharmacy Consult (Consult Rx Perform Med Rec) 1 each MISCELLANE ONCE PRN PRN Reason: Consult order Pharmacy Consult (Consult Rx Vancomycin Dosing) 1 each MISCELLANE DAILY PRN PRN Reason: Consult order Polyethylene Glycol (Polyethylene Glycol 3350 17 Gm Powd.Pack) 17 gm PO DAILY [facility] Last Admin: 07/20/22 10:09 Dose: 17 gm Documented By: NIKOLAY Primidone (Primidone 50 Mg Tablet) 50 mg PO BEDTIME [facility] Last Admin: 07/19/22 20:09 Dose: 50 mg Documented By: ANTOIC Senna (Sennosides 8.6 Mg Tablet) 17.2 mg PO DAILY [facility] Last Admin: 07/20/22 10:03 Dose: 17.2 mg Documented By: NIKOLAY Sodium Chloride (0.9 % Sodium Chloride Flush 3 Ml Syringe) 3 ml IVFLUSH QSHIFT [facility] Last Admin: 07/20/22 07:43 Dose: Not Given Documented By: TYLER Non-Admin Reason: See Note Labs CBC & Chem 7: 07/17/22 10:09 07/20/22 08:01 Labs: Laboratory Results - last 24 hr 07/19/22 07/19/22 07/20/22 16:18 19:31 08:01 Anion Gap 15 Estim Creat Clear Calc 28.1 Estimated GFR 20 POC Glucose 192 H 215 H Random Glucose 380 H* Calcium 7.4 L Phosphorus 4.0 Magnesium 1.8 Albumin 1.8 L 07/20/22 07/20/22 08:15 11:42 Anion Gap Estim Creat Clear Calc Estimated GFR POC Glucose 335 H 389 H* Random Glucose Calcium Phosphorus Magnesium Albumin Assessment and Plan (1) NSVT (nonsustained ventricular tachycardia): Status: Acute (2) Sacral decubitus ulcer: Status: Acute Plan 59-year-old male with history of hyperlipidemia, insulin-dependent type 2 diabetes, orthostatic hypotension, ESRD on dialysis T//Mon following with Milton Saab, essential tremor, coronary artery disease s/p CABG 12 years ago, chronic systolic heart failure, 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 Avina in ID admitted for chest pain found to be septic with stage IV decubitus ulcer of the sacrum with osteomyelitis. #Sepsis- secondary to stage IV decubitus ulcer of the sacrum with osteomyelitis -leukocytosis has been chronic over the last few months secondary to osteomyelitis but remains elevated despite completing IV antibiotics at 13.0.? ID recommended IV meropenem and PO zyvox for 6 weeks. Clinically stable at moment. WBC is down to 12 and otherwise has no features of sepsis. #Stage IV decubitus ulcer sacrum- present on arrival, Seen by surgery an s/p debridement, preventative measures with frequent turning, appropriate bed. Surgery to reassess for need for debridment # ESRD--to continue usual schedule of dialysis (Monday, and Monday) # Anasarca-secondary to ESRD--fluid removal at dialysis #hyponatremia..chronic with acute component from fluid overload, limit water intake ultrafiltration at dialysis. #Malnutrition with protein deficiency with protein deficiency--Started on TPN since 07/19 to promote wound healing # chest pain-resolved with no evidence of ACS #Permanent AFIB with RVR--likely from sepsis and required IV cardizem but now back on usual dose of Toprol and HR in 90s # hypotension-resolved -secondary to nitroglycerin administration, not septic shock -continue Midodrine # paroxysmal atrial fibrillation--rate uncontrolled., continue eliquis #SVT -Patient was on Toprolol at home and only changed to metoprolol, cardiology was not aware of this. Will continue metoprolol at present dose #VT--check magnesium, consider cardiology evaluation # coronary artery disease-chest pain resolved -continue ASA, Eliquis, atorvastatin.? Hold beta-willow due to soft blood pressure # insulin-dependent type 2 diabetes with hyperglycemia -POC glucose -diabetic diet -Humalog on sliding scale -dose adjusted Lantus 19 units daily #Chronic systolic heart failure -compensated -continue home meds #discoid lupus erythematous -continue home meds # generalized weakness # Constipation as seeen on CT--add Miralax Vomitting, abd exam is bening and no pain, will get an xray need for inaptient: sepsis requiring IV Abx Possible dc today Quality Stroke Does the patient have a stroke diagnosis?: No VTE Prior VTE?: No VTE Risk Level:: Medical - moderate - high VTE Device Contraindication: Treatment Not Indicated VTE Drug Contraindication: N/A - Med Ordered
--- NOTE | 2022-07-20 16:01 | MHC.CM.PN ---
[facility]icia has offered a bed at discharge. [facility] via BLS. The patient vomited today. He received Zofran. He was also wheezing in the afternoon. Wound documentation requested by Leticia was not available from nursing; because the patient was nauseous and vomiting. Discharge is anticipated tomorrow.
[2022-07-20 16:09] LABS: Glucose, Whole Blood 355 mg/dL (60-115)
[2022-07-20 19:44] LABS: Glucose, Whole Blood 322 mg/dL (60-115)
[2022-07-20] MEDS: Melatonin 3 MG TABLET PO (19:52)
[2022-07-20] MEDS: Primidone 50 MG TABLET PO (19:52)
[2022-07-20] MEDS: Atorvastatin Calcium 80 MG TABLET PO (19:52)
[2022-07-21] MEDS: 0.9 % Sodium Chloride Flush 3 ML SYRINGE IVFLUSH ×3 (02:47→23:34)
[2022-07-21] MEDS: Linezolid 600 MG TABLET PO ×2 (02:47→14:59)
[2022-07-21 02:49] VITALS: BP 112/58; PULSE 102; RESP 18; TEMP 36.4; O2SAT 98
[2022-07-21 07:57] VITALS: BP 91/60; PULSE 99; RESP 18; TEMP 37.3; O2SAT 98
[2022-07-21 08:08] LABS: Glucose, Whole Blood 248 mg/dL (60-115)
[2022-07-21] MEDS: ondansetron HCL 4 MG/2 ML VIAL IVPUSH (08:43)
[2022-07-21] MEDS: Insulin Glargine,Hum.rec.anlog 100 UNIT/ML 10 ML VIAL 19 UNIT SUBCUT (09:12)
[2022-07-21] MEDS: Midodrine HCl 5 MG TABLET PO ×4 (09:12→18:39)
[2022-07-21] MEDS: oxyCODONE HCl Immed Release 5 MG TABLET PO ×2 (09:43→18:37)
[2022-07-21] MEDS: Morphine Sulfate 2 MG/ML CARTRIDGE IVPUSH ×3 (09:46→23:30)
--- NOTE | 2022-07-21 11:35 | P.PNNPD_ITS ---
Subjective Subjective This patient was seen during dialysis. Interval history: f/u on sepsis d/t decub osteo c/o pain Physical Exam Vital Signs: Vital Signs: Last Vital Signs Temp 99.1 F 07/21/22 07:57 Pulse 99 07/21/22 07:57 Resp 18 07/21/22 07:57 BP 91/60 07/21/22 07:57 Pulse Ox 98 07/21/22 07:57 O2 Del Method 07/21/22 07:57 BMI result Body Mass Index 25.0 Const: Orientation/consciousness: patient oriented x3 HEENT: Head: Yes normal to inspection Neck: Neck: Yes full ROM and Yes supple Resp: Auscultation: clear to auscultation bilaterally Cardio: Jugular venous distension: no JVD Heart sounds: no click, no murmurs and no rubs GI: Inspection: Yes other (Ostomy bag is present) Palpation (GI): Soft to palpation and nontender Auscultation: normal bowel sounds Neuro: General: patient oriented x3 Motor exam (neuro): no asterixis Assessment & Plan Assessment and plan (1) End stage renal disease: Plan No s/s of uremia Fluid status acceptable HD today- He is signing off early due to pain. 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
--- NOTE | 2022-07-21 11:47 | MHC.CLN ---
F/U FOR TPN: PT IS MODERATELY MALNOURISHED SEE FULL CLINICAL NUTRITION ASSESSMENT DATED 07/12/22 DIET RX: 2200DM 1500ML FR-APPROPRIATE PO INTAKE 50-100% PT RECEIVING ENSURE BID AND ANITA TO INCREASE KCALS AND PROMOTE WOUND HEALING SUPP PROVIDES 9600KCALS, 45G PROTEIN WITH 100% ACCEPTANCE CONTINUE TO MONITOR PO INTAKE CLOSELY PPN FOR INCREASED PROTEIN R/T WOUND HEALING DISCUSSED WITH PHARMACY-OBTAINING LABS TODAY CONTINUE D104.25 AT 30ML/HR TODAY PROVIDES 367KCALS, 31G PROTEIN REPLETE LYTES NEEDED
[2022-07-21 12:24] LABS: Glucose, Whole Blood 237 mg/dL (60-115)
[2022-07-21 12:43] LABS: Albumin Level 1.8 g/dL (3.5-5.0); Anion Gap 15 (12-20); Blood Urea Nitrogen 93 mg/dL (9-16); Calcium 7.2 mg/dL (8.4-10.2); Carbon Dioxide 20 mmol/L (22-29); Chloride 94 mmol/L (96-108); Creatinine Clr Calc Pharmacy 32.8; Estimated Glomerular Filt Rate 24; Glucose Random 248 mg/dL (60-115); Magnesium 1.8 mg/dL (1.6-2.6); Phosphorus 3.5 mg/dL (2.7-4.5); Potassium 4.1 mmol/L (3.3-5.1); Sodium 125 mmol/L (135-145)
--- NOTE | 2022-07-21 14:36 | P.PNGS_ITS ---
Subjective Subjective Date of Service: 07/21/22 Interval history: says he vomitted earlier denies abdominal pain stoma functiioning Physical Exam Vital Signs: Vital Signs: Last Vital Signs Temp 99.1 F 07/21/22 07:57 Pulse 99 07/21/22 07:57 Resp 18 07/21/22 07:57 BP 91/60 07/21/22 07:57 Pulse Ox 98 07/21/22 07:57 O2 Del Method 07/21/22 07:57 BMI result Body Mass Index 25.0 Const: General: comfortable and no acute distress Resp: Effort & Inspection: normal respiratory effort Cardio: Rate: regular rate GI: Other: stoma functioning, with edema Palpation (GI): not firm and nontender Objective Data Active Medications Acetaminophen (Acetaminophen 325 Mg Tablet) 650 mg PO Q6H PRN PRN Reason: Pain, Mild (Pain Scale 1-3) Last Admin: 07/20/22 04:57 Dose: 650 mg Documented By: CHARLES Comments: computer system down Apixaban (Apixaban 5 Mg Tablet) 5 mg PO BID [facility] Last Admin: 07/21/22 09:11 Dose: Not Given Documented By: TYLER Non-Admin Reason: NPO Ascorbic Acid (Ascorbic Acid 500 Mg Tablet) 500 mg PO BID [facility] Last Admin: 07/21/22 09:02 Dose: Not Given Documented By: TYLER Non-Admin Reason: NPO Aspirin (Aspirin Enteric Coated 81 Mg Tablet.) 81 mg PO DAILY [facility] Last Admin: 07/21/22 09:11 Dose: Not Given Documented By: TYLER Non-Admin Reason: NPO Atorvastatin Calcium (Atorvastatin Calcium 80 Mg Tablet) 80 mg PO BEDTIME [facility] Last Admin: 07/20/22 19:52 Dose: 80 mg Documented By: GEOVANY Calcium Carbonate/Cholecalciferol (Calcium + Vitamin D 250 Mg Tablet) 500 mg PO DAILY [facility] Last Admin: 07/21/22 09:02 Dose: Not Given Documented By: TYLER Non-Admin Reason: NPO Cholestyramine Resin (Cholestyramine (With Sugar) 4 Gm Powd.Pack) 4 gm PO BIDWM [facility] Last Admin: 07/21/22 09:02 Dose: Not Given Documented By: TYLER Non-Admin Reason: NPO Diphenhydramine HCl (Diphenhydramine Hcl 25 Mg Capsule) 25 mg PO TID PRN PRN Reason: Itching Docusate Sodium (Docusate Sodium 100 Mg Capsule) 100 mg PO DAILY [facility] Last Admin: 07/21/22 09:02 Dose: Not Given Documented By: TYLER Non-Admin Reason: NPO Ezetimibe (Ezetimibe 10 Mg Tablet) 10 mg PO DAILY [facility] Last Admin: 07/21/22 09:11 Dose: Not Given Documented By: TYLER Non-Admin Reason: NPO Epoetin Wai (Epoetin Wai 10,000 Unit/Ml Vial) 10,000 unit SUBCUT TuThSa@1200 [facility] Last Admin: 07/21/22 11:38 Dose: Not Given Documented By: TYLER Non-Admin Reason: Given in Dialysis Fluticasone Propionate (Fluticasone Propionate Nasal 16 Gm [place]) 1 spray NOSTRIL-B DAILY [facility] Last Admin: 07/21/22 09:02 Dose: Not Given Documented By: TYLER Non-Admin Reason: See Note Furosemide (Furosemide 20 Mg/2 Ml Vial) 20 mg IVPUSH BID@0900,1800 [facility]; Protocol Last Admin: 07/21/22 09:02 Dose: Not Given Documented By: TYLER Non-Admin Reason: See Note Meropenem 500 mg/ Sodium (Chloride) 50 mls @ 100 mls/hr IV Q24H [facility] Last Infusion: 07/20/22 16:57 Dose: 0 mls/hr Documented By: NIKOLAY Potassium Chloride 10 meq/Sodium Chloride 70 meq/Magnesium Sulfate 5 meq /Potassium Phosphate 15 mmol/Calcium Gluconate 4.65 meq/Multivitamins 14 ml/ Trace Metals 1.4 ml/ Amino Acids/Electrolytes/Dextrose 720 mls @ 30 mls/hr IVCONT DAILY@1800 [facility] Stop: 07/21/22 17:59 Last Admin: 07/20/22 19:48 Dose: 30 mls/hr Documented By: GEOVANY Potassium Chloride 10 meq/Sodium Chloride 85 meq/Magnesium Sulfate 5 meq/Potassium Phosphate 15 mmol/Calcium Gluconate 4.65 meq/Multivitamins 14 ml/ Trace Metals 1.4 ml/ Amino Acids/Electrolytes/Dextrose 720 mls @ 30 mls/hr IVCONT DAILY@1800 [facility] Insulin Glargine (Insulin Glargine,Hum.Rec.Anlog 100 Unit/Ml 10 Ml Vial) 19 unit SUBCUT DAILY [facility] Last Admin: 07/21/22 09:12 Dose: 19 unit Documented By: TYLER Insulin Human Lispro (Insulin Lispro 100 Unit/Ml 3 Ml Vial) 0 unit SUBCUT QIDACHS [facility]; Protocol Last Admin: 07/21/22 12:32 Dose: Not Given Documented By: TYLER Non-Admin Reason: NPO Linezolid (Linezolid 600 Mg Tablet) 600 mg PO Q12H [facility] Last Admin: 07/21/22 02:47 Dose: 600 mg Documented By: FELIBERTO Melatonin (Melatonin 3 Mg Tablet) 3 mg PO BEDTIME [facility] Last Admin: 07/20/22 19:52 Dose: 3 mg Documented By: GEOVANY Metoprolol Tartrate (Metoprolol Tartrate 25 Mg Tablet) 25 mg PO TID [facility]; Protocol Last Admin: 07/21/22 09:11 Dose: Not Given Documented By: TYLER Non-Admin Reason: NPO Midodrine (Midodrine Hcl 5 Mg Tablet) 5 mg PO TID@0900,1200,1800 [facility] Last Admin: 07/21/22 12:38 Dose: 5 mg Documented By: TYLER Midodrine (Midodrine Hcl 5 Mg Tablet) 5 mg PO TUTHSA@0900 [facility] Last Admin: 07/21/22 09:12 Dose: 5 mg Documented By: TYLER Midodrine (Midodrine Hcl 5 Mg Tablet) 10 mg PO TuThSa PRN PRN Reason: LOW BLOOD PRESSURE Morphine Sulfate (Morphine Sulfate 2 Mg/Ml Cartridge) 2 mg IVPUSH Q6H PRN; Protocol PRN Reason: Pain, Severe (Pain Scale 7-10) Last Admin: 07/21/22 09:46 Dose: 2 mg Documented By: TYLER Multivitamins/Vitamin C (Multivitamin Tablet) 1 tab PO DAILY [facility] Last Admin: 07/21/22 09:03 Dose: Not Given Documented By: TYLER Non-Admin Reason: NPO Nitroglycerin (Nitroglycerin 0.4 Mg Tab.Subl) 0.4 mg SUBLINGUAL Q5M PRN PRN Reason: Chest Pain Ondansetron HCl (Ondansetron Hcl 4 Mg/2 Ml Vial) 4 mg IVPUSH Q8H PRN PRN Reason: Nausea and Vomiting Last Admin: 07/21/22 08:43 Dose: 4 mg Documented By: TYLER Oxycodone HCl (Oxycodone Hcl Immed Release 5 Mg Tablet) 5 mg PO Q6H PRN PRN Reason: Pain, Severe (Pain Scale 7-10) Last Admin: 07/21/22 09:43 Dose: 5 mg Documented By: TYLER Pharmacy Consult (Consult Rx Perform Med Rec) 1 each MISCELLANE ONCE PRN PRN Reason: Consult order Polyethylene Glycol (Polyethylene Glycol 3350 17 Gm Powd.Pack) 17 gm PO DAILY [facility] Last Admin: 07/21/22 09:03 Dose: Not Given Documented By: TYLER Non-Admin Reason: NPO Primidone (Primidone 50 Mg Tablet) 50 mg PO BEDTIME [facility] Last Admin: 07/20/22 19:52 Dose: 50 mg Documented By: GEOVANY Senna (Sennosides 8.6 Mg Tablet) 17.2 mg PO DAILY [facility] Last Admin: 07/21/22 09:02 Dose: Not Given Documented By: TYLER Non-Admin Reason: NPO Sodium Chloride (0.9 % Sodium Chloride Flush 3 Ml Syringe) 3 ml IVFLUSH QSHIFT [facility] Last Admin: 07/21/22 07:10 Dose: Not Given Labs CBC & Chem 7: 07/17/22 10:09 07/21/22 11:58 Labs: Laboratory Results - last 24 hr 07/20/22 07/20/22 07/21/22 16:06 19:40 08:00 Anion Gap Estim Creat Clear Calc Estimated GFR POC Glucose 355 H* 322 H 248 H Random Glucose Calcium Phosphorus Magnesium Albumin 07/21/22 07/21/22 11:58 12:19 Anion Gap 15 Estim Creat Clear Calc 32.8 Estimated GFR 24 POC Glucose 237 H Random Glucose 248 H Calcium 7.2 L Phosphorus 3.5 Magnesium 1.8 Albumin 1.8 L Procedures Date of Service Date of Service: 07/21/22 Progress Note: A&P Assessment and plan (1) Emesis: Status: Acute Assessment and Plan: Xray shows dilated stomach, no other suggestion of obstruction stoma with output ?gastroparesis exam otherwise benign sips of clear temporarily also with sacral decub ulcer - dressings recently changed Time Spent With Patient Time: Total time spent is greater than 50% in coordination of care (as documented) at patient's floor/unit and/or counseling patient: Quality Stroke Does the patient have a stroke diagnosis?: No VTE Prior VTE?: No VTE Risk Level:: Medical - moderate - high VTE Device Contraindication: Treatment Not Indicated VTE Drug Contraindication: N/A - Med Ordered
[2022-07-21 15:59] VITALS: BP 99/60; PULSE 102; RESP 16; TEMP 36.2; O2SAT 92
[2022-07-21 16:34] LABS: Glucose, Whole Blood 202 mg/dL (60-115)
[2022-07-21] MEDS: Furosemide 20 MG/2 ML VIAL IVPUSH (18:39)
[2022-07-21] MEDS: fentaNYL 12 MCG PATCH.TD72 TRANSDERMA (19:52)
[2022-07-21 20:00] VITALS: BP 97/74; PULSE 98; RESP 16; TEMP 36.5; O2SAT 98
[2022-07-21] MEDS: Atorvastatin Calcium 80 MG TABLET PO (21:25)
[2022-07-21] MEDS: Apixaban 5 MG TABLET PO (21:26)
[2022-07-21] MEDS: Primidone 50 MG TABLET PO (21:26)
[2022-07-21] MEDS: Ascorbic Acid 500 MG TABLET PO (21:27)
[2022-07-21] MEDS: Melatonin 3 MG TABLET PO (21:27)
[2022-07-21] MEDS: Insulin Lispro 100 UNIT/ML 3 ML VIAL SUBCUT (21:28)
[2022-07-21 21:33] LABS: Glucose, Whole Blood 166 mg/dL (60-115)
[2022-07-22] VITALS (7 sets, daily range): BP systolic 97–114; BP diastolic 52–66; PULSE 78–111; RESP 16–20; TEMP 36.2–37.1; O2SAT 96–98
[2022-07-22] MEDS: Linezolid 600 MG TABLET PO ×2 (03:05→15:46)
[2022-07-22] MEDS: Morphine Sulfate 2 MG/ML CARTRIDGE IVPUSH ×2 (05:04→19:56)
[2022-07-22] MEDS: oxyCODONE HCl Immed Release 5 MG TABLET PO (06:50)
--- NOTE | 2022-07-22 08:05 | PC.NURSE ---
07/22/2022 0530 This RN changed the wound dressing on patient coccyx 12x11 2 cm deep durafiber ag followed by Jarred sacral (Foam Dressing) , L 3x3 0.5 depth durafiber ag/ fb foam dressing and R heel foam dressing changed. Bilat lower extremities dry clean dressing for weepy draining venous ulcers .
[2022-07-22 08:31] LABS: Glucose, Whole Blood 120 mg/dL (60-115)
[2022-07-22 09:25] LABS: Albumin Level 1.9 g/dL (3.5-5.0); Anion Gap 17 (12-20); Blood Urea Nitrogen 107 mg/dL (9-16); Calcium 7.6 mg/dL (8.4-10.2); Carbon Dioxide 19 mmol/L (22-29); Chloride 95 mmol/L (96-108); Estimated Glomerular Filt Rate 20; Glucose Random 129 mg/dL (60-115); Magnesium 1.9 mg/dL (1.6-2.6); Phosphorus 4.7 mg/dL (2.7-4.5); Potassium 5.2 mmol/L (3.3-5.1); Sodium 126 mmol/L (135-145)
--- NOTE | 2022-07-22 09:28 | HO.PM.IMPN ---
Subjective Subjective Date of Service: 07/22/22 Interval History: f/u on sepsis d/t decub osteo interval history: feels better, didn't have any further vomitting yesterday Review of Systems no fever no chest pain no sob Physical Exam Vital Signs: Vital Signs: Last Vital Signs Temp 97.1 F 07/22/22 08:00 Pulse 97 07/22/22 08:00 Resp 20 07/22/22 08:00 BP 102/57 L 07/22/22 08:00 Pulse Ox 96 07/22/22 08:00 O2 Del Method 07/22/22 08:00 BMI result Body Mass Index 25.0 Const: Other: General: AO X 3, no acute distress Resp: CTA bilateral CVS: S1,S2,RRR, some swelling in arms/legs GI: +BS, NT, no distention Skin: see pictures of decub ulcers Neuro: motor grossly intact Psych: appropriate affect Objective Data Active Medications Acetaminophen (Acetaminophen 325 Mg Tablet) 650 mg PO Q6H PRN PRN Reason: Pain, Mild (Pain Scale 1-3) Last Admin: 07/20/22 04:57 Dose: 650 mg Documented By: CHARLES Comments: computer system down Apixaban (Apixaban 5 Mg Tablet) 5 mg PO BID [facility] Last Admin: 07/21/22 21:26 Dose: 5 mg Documented By: POOL Ascorbic Acid (Ascorbic Acid 500 Mg Tablet) 500 mg PO BID [facility] Last Admin: 07/21/22 21:27 Dose: 500 mg Documented By: POOL Aspirin (Aspirin Enteric Coated 81 Mg Tablet.) 81 mg PO DAILY [facility] Last Admin: 07/21/22 09:11 Dose: Not Given Documented By: TYLER Non-Admin Reason: NPO Atorvastatin Calcium (Atorvastatin Calcium 80 Mg Tablet) 80 mg PO BEDTIME [facility] Last Admin: 07/21/22 21:25 Dose: 80 mg Documented By: POOL Calcium Carbonate/Cholecalciferol (Calcium + Vitamin D 250 Mg Tablet) 500 mg PO DAILY [facility] Last Admin: 07/21/22 09:02 Dose: Not Given Documented By: TYLER Non-Admin Reason: NPO Cholestyramine Resin (Cholestyramine (With Sugar) 4 Gm Powd.Pack) 4 gm PO BIDWM [facility] Last Admin: 07/21/22 16:37 Dose: Not Given Documented By: SAGE Non-Admin Reason: NPO Diphenhydramine HCl (Diphenhydramine Hcl 25 Mg Capsule) 25 mg PO TID PRN PRN Reason: Itching Docusate Sodium (Docusate Sodium 100 Mg Capsule) 100 mg PO DAILY [facility] Last Admin: 07/21/22 09:02 Dose: Not Given Documented By: TYLER Non-Admin Reason: NPO Ezetimibe (Ezetimibe 10 Mg Tablet) 10 mg PO DAILY [facility] Last Admin: 07/21/22 09:11 Dose: Not Given Documented By: DREWFA Non-Admin Reason: NPO Epoetin Wai (Epoetin Wai 10,000 Unit/Ml Vial) 10,000 unit SUBCUT TuThSa@1200 [facility] Last Admin: 07/21/22 11:38 Dose: Not Given Documented By: SAVISOFFA Non-Admin Reason: Given in Dialysis Fentanyl (Fentanyl 12 Mcg Patch.Td72) 12 mcg TRANSDERMA Q72H [facility] Last Admin: 07/21/22 19:52 Dose: 12 mcg Documented By: POOL Fluticasone Propionate (Fluticasone Propionate Nasal 16 Gm [place]) 1 spray NOSTRIL-B DAILY [facility] Last Admin: 07/21/22 09:02 Dose: Not Given Documented By: TYLER Non-Admin Reason: See Note Furosemide (Furosemide 20 Mg/2 Ml Vial) 20 mg IVPUSH BID@0900,1800 [facility]; Protocol Last Admin: 07/21/22 18:39 Dose: 20 mg Documented By: SAGE Meropenem 500 mg/ Sodium (Chloride) 50 mls @ 100 mls/hr IV Q24H [facility] Last Infusion: 07/21/22 17:17 Dose: 0 mls/hr Documented By: SAGE Potassium Chloride 10 meq/Sodium Chloride 85 meq/Magnesium Sulfate 5 meq/Potassium Phosphate 15 mmol/Calcium Gluconate 4.65 meq/Multivitamins 14 ml/ Trace Metals 1.4 ml/ Amino Acids/Electrolytes/Dextrose 720 mls @ 30 mls/hr IVCONT DAILY@1800 [facility] Last Admin: 07/21/22 18:40 Dose: 30 mls/hr Documented By: SAGE Insulin Glargine (Insulin Glargine,Hum.Rec.Anlog 100 Unit/Ml 10 Ml Vial) 19 unit SUBCUT DAILY [facility] Last Admin: 07/21/22 09:12 Dose: 19 unit Documented By: TYLER Insulin Human Lispro (Insulin Lispro 100 Unit/Ml 3 Ml Vial) 0 unit SUBCUT QIDACHS [facility]; Protocol Last Admin: 07/21/22 21:28 Dose: 2 unit Documented By: POOL Linezolid (Linezolid 600 Mg Tablet) 600 mg PO Q12H [facility] Last Admin: 07/22/22 03:05 Dose: 600 mg Documented By: POOL Melatonin (Melatonin 3 Mg Tablet) 3 mg PO BEDTIME [facility] Last Admin: 07/21/22 21:27 Dose: 3 mg Documented By: POOL Metoprolol Tartrate (Metoprolol Tartrate 25 Mg Tablet) 25 mg PO TID [facility]; Protocol Last Admin: 07/21/22 21:30 Dose: Not Given Documented By: POOL Non-Admin Reason: Decreased Blood Pressure Midodrine (Midodrine Hcl 5 Mg Tablet) 5 mg PO TID@0900,1200,1800 [facility] Last Admin: 07/21/22 18:39 Dose: 5 mg Documented By: SAGE Midodrine (Midodrine Hcl 5 Mg Tablet) 5 mg PO TUTHSA@0900 [facility] Last Admin: 07/21/22 09:12 Dose: 5 mg Documented By: TYLER Midodrine (Midodrine Hcl 5 Mg Tablet) 10 mg PO TuThSa PRN PRN Reason: LOW BLOOD PRESSURE Morphine Sulfate (Morphine Sulfate 2 Mg/Ml Cartridge) 2 mg IVPUSH Q6H PRN; Protocol PRN Reason: Pain, Severe (Pain Scale 7-10) Last Admin: 07/22/22 05:04 Dose: 2 mg Documented By: POOL Multivitamins/Vitamin C (Multivitamin Tablet) 1 tab PO DAILY [facility] Last Admin: 07/21/22 09:03 Dose: Not Given Documented By: TYLER Non-Admin Reason: NPO Nitroglycerin (Nitroglycerin 0.4 Mg Tab.Subl) 0.4 mg SUBLINGUAL Q5M PRN PRN Reason: Chest Pain Ondansetron HCl (Ondansetron Hcl 4 Mg/2 Ml Vial) 4 mg IVPUSH Q8H PRN PRN Reason: Nausea and Vomiting Last Admin: 07/21/22 08:43 Dose: 4 mg Documented By: TYLER Oxycodone HCl (Oxycodone Hcl Immed Release 5 Mg Tablet) 5 mg PO Q6H PRN PRN Reason: Pain, Severe (Pain Scale 7-10) Last Admin: 07/22/22 06:50 Dose: 5 mg Documented By: POOL Pharmacy Consult (Consult Rx Perform Med Rec) 1 each MISCELLANE ONCE PRN PRN Reason: Consult order Polyethylene Glycol (Polyethylene Glycol 3350 17 Gm Powd.Pack) 17 gm PO DAILY [facility] Last Admin: 07/21/22 09:03 Dose: Not Given Documented By: TYLER Non-Admin Reason: NPO Primidone (Primidone 50 Mg Tablet) 50 mg PO BEDTIME [facility] Last Admin: 07/21/22 21:26 Dose: 50 mg Documented By: POOL Senna (Sennosides 8.6 Mg Tablet) 17.2 mg PO DAILY [facility] Last Admin: 07/21/22 09:02 Dose: Not Given Documented By: TYLER Non-Admin Reason: NPO Sodium Chloride (0.9 % Sodium Chloride Flush 3 Ml Syringe) 3 ml IVFLUSH QSHIFT [facility] Last Admin: 07/21/22 23:34 Dose: 3 ml Documented By: POOL Labs CBC & Chem 7: 07/17/22 10:09 07/22/22 08:03 Labs: Laboratory Results - last 24 hr 07/21/22 07/21/22 07/21/22 11:58 12:19 15:56 Anion Gap 15 Estim Creat Clear Calc 32.8 Estimated GFR 24 POC Glucose 237 H 202 H Random Glucose 248 H Calcium 7.2 L Phosphorus 3.5 Magnesium 1.8 Albumin 1.8 L 07/21/22 07/22/22 07/22/22 21:14 08:03 08:26 Anion Gap 17 Estim Creat Clear Calc 29.0 Estimated GFR 20 POC Glucose 166 H 120 H Random Glucose 129 H D Calcium 7.6 L Phosphorus 4.7 H Magnesium 1.9 Albumin 1.9 L Assessment and Plan (1) NSVT (nonsustained ventricular tachycardia): Status: Acute (2) Sacral decubitus ulcer: Status: Acute Plan 59-year-old male with history of hyperlipidemia, insulin-dependent type 2 diabetes, orthostatic hypotension, ESRD on dialysis T//Mon following with Milton Saab, essential tremor, coronary artery disease s/p CABG 12 years ago, chronic systolic heart failure, 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 Avina in ID admitted for chest pain found to be septic with stage IV decubitus ulcer of the sacrum with osteomyelitis. #Sepsis- secondary to stage IV decubitus ulcer of the sacrum with osteomyelitis -leukocytosis has been chronic over the last few months secondary to osteomyelitis but remains elevated despite completing IV antibiotics at 13.0.? ID recommended IV meropenem and PO zyvox for 6 weeks. Clinically stable at moment. WBC is down to 12 and otherwise has no features of sepsis. #Stage IV decubitus ulcer sacrum- present on arrival, Seen by surgery an s/p debridement, preventative measures with frequent turning, appropriate bed. Surgery to reassess for need for debridment # ESRD--to continue usual schedule of dialysis (Monday, and Monday) # Anasarca-secondary to ESRD--fluid removal at dialysis #hyponatremia..chronic with acute component from fluid overload, limit water intake ultrafiltration at dialysis. #Malnutrition with protein deficiency with protein deficiency--Started on TPN since 07/19 to promote wound healing # chest pain-resolved with no evidence of ACS #Vomitting and dilated stomach--vomitting resolved, no evidence of obstruction and resume diet #Permanent AFIB with RVR--likely from sepsis and required IV cardizem but now back on usual dose of Toprol and HR in 90s # hypotension-resolved -secondary to nitroglycerin administration, not septic shock -continue Midodrine # paroxysmal atrial fibrillation--rate uncontrolled., continue eliquis #SVT -Patient was on Toprolol at home and only changed to metoprolol, cardiology was not aware of this. Will continue metoprolol at present dose #VT--check magnesium, consider cardiology evaluation # coronary artery disease-chest pain resolved -continue ASA, Eliquis, atorvastatin.? Hold beta-willow due to soft blood pressure # insulin-dependent type 2 diabetes with hyperglycemia -POC glucose -diabetic diet -Humalog on sliding scale -dose adjusted Lantus 19 units daily #Chronic systolic heart failure -compensated -continue home meds #discoid lupus erythematous -continue home meds # generalized weakness # Constipation as seeen on CT--add Miralax Vomitting, abd exam is bening and no pain, will get an xray need for inaptient: sepsis requiring IV Abx Possible dc today Quality Stroke Does the patient have a stroke diagnosis?: No VTE Prior VTE?: No VTE Risk Level:: Medical - moderate - high VTE Device Contraindication: Treatment Not Indicated VTE Drug Contraindication: N/A - Med Ordered
[2022-07-22] MEDS: Furosemide 20 MG/2 ML VIAL IVPUSH ×2 (11:14→18:59)
[2022-07-22] MEDS: Sennosides 8.6 MG TABLET 17.2 MG PO (11:14)
[2022-07-22] MEDS: Multivitamin TABLET 1 TAB PO (11:18)
[2022-07-22] MEDS: Ezetimibe 10 MG TABLET PO (11:18)
[2022-07-22] MEDS: Aspirin Enteric Coated 81 MG TABLET.DR PO (11:18)
[2022-07-22] MEDS: Apixaban 5 MG TABLET PO ×2 (11:18→21:21)
[2022-07-22] MEDS: Cholestyramine (With Sugar) 4 GM POWD.PACK PO ×2 (11:19→16:23)
[2022-07-22] MEDS: Ascorbic Acid 500 MG TABLET PO ×2 (11:20→21:22)
--- NOTE | 2022-07-22 11:45 | MHC.CLN ---
F/U FOR TPN: PT IS CURRENTLY NPO IF DIET TO RESUME; RECOMMEND 2200DM 2GM NA LOW K+, LOW PHOS WITH 1200ML FLUID RESTRICTION PER RENAL RE-START ENSURE BID AND ANITA TO INCREASE KCALS AND PROMOTE WOUND HEALING PPN FOR INCREASED PROTEIN R/T WOUND HEALING DISCUSSED WITH PHARMACY INCREASE D104.25 AT 40ML/HR TO PROVIDE 490KCALS, 41G PROTEIN REPLETE LYTES NEEDED
[2022-07-22] MEDS: Midodrine HCl 5 MG TABLET PO ×2 (11:53→19:05)
[2022-07-22] MEDS: 0.9 % Sodium Chloride Flush 3 ML SYRINGE IVFLUSH ×2 (11:54→18:55)
[2022-07-22] MEDS: Insulin Glargine,Hum.rec.anlog 100 UNIT/ML 10 ML VIAL 19 UNIT SUBCUT (11:54)
[2022-07-22] MEDS: Fluticasone Propionate Nasal 16 GM SPRAY 1 SPRAY NOSTRIL-B (11:54)
[2022-07-22] MEDS: Calcium + Vitamin D 250 MG TABLET 500 MG PO (11:58)
[2022-07-22] MEDS: polyethylene glycoL 3350 17 GM POWD.PACK PO (12:01)
[2022-07-22] MEDS: Docusate Sodium 100 MG CAPSULE PO (12:03)
[2022-07-22 12:12] LABS: Glucose, Whole Blood 143 mg/dL (60-115)
--- NOTE | 2022-07-22 13:19 | PM.PNGS ---
Subjective Subjective Date of Service: 07/22/22 Interval history: says he is ok no further vomitting no new issues Physical Exam Vital Signs: Vital Signs: Last Vital Signs Temp 97.1 F 07/22/22 08:00 Pulse 111 H 07/22/22 11:05 Resp 20 07/22/22 11:05 BP 98/52 L 07/22/22 11:05 Pulse Ox 96 07/22/22 08:00 O2 Del Method 07/22/22 08:00 BMI result Body Mass Index 25.0 Const: General: comfortable and no acute distress Resp: Effort & Inspection: normal respiratory effort Cardio: Rate: regular rate GI: Other: colostomy edematous but functioning, with hard stools Palpation (GI): Soft to palpation and not firm Back/Spine/Pelvis: Other: dressings chamged by staff earlier Objective Data Active Medications Acetaminophen (Acetaminophen 325 Mg Tablet) 650 mg PO Q6H PRN PRN Reason: Pain, Mild (Pain Scale 1-3) Last Admin: 07/20/22 04:57 Dose: 650 mg Documented By: CHARLES Comments: computer system down Apixaban (Apixaban 5 Mg Tablet) 5 mg PO BID [facility] Last Admin: 07/22/22 11:18 Dose: 5 mg Documented By: TEE Ascorbic Acid (Ascorbic Acid 500 Mg Tablet) 500 mg PO BID [facility] Last Admin: 07/22/22 11:20 Dose: 500 mg Documented By: TEE Aspirin (Aspirin Enteric Coated 81 Mg Tablet.Dr) 81 mg PO DAILY [facility] Last Admin: 07/22/22 11:18 Dose: 81 mg Documented By: TEE Atorvastatin Calcium (Atorvastatin Calcium 80 Mg Tablet) 80 mg PO BEDTIME [facility] Last Admin: 07/21/22 21:25 Dose: 80 mg Documented By: POOL Calcium Carbonate/Cholecalciferol (Calcium + Vitamin D 250 Mg Tablet) 500 mg PO DAILY [facility] Last Admin: 07/22/22 11:58 Dose: 500 mg Documented By: TEE Cholestyramine Resin (Cholestyramine (With Sugar) 4 Gm Powd.Pack) 4 gm PO BIDWM [facility] Last Admin: 07/22/22 11:19 Dose: 4 gm Documented By: TEE Diphenhydramine HCl (Diphenhydramine Hcl 25 Mg Capsule) 25 mg PO TID PRN PRN Reason: Itching Docusate Sodium (Docusate Sodium 100 Mg Capsule) 100 mg PO DAILY [facility] Last Admin: 07/22/22 12:03 Dose: 100 mg Documented By: TEE Ezetimibe (Ezetimibe 10 Mg Tablet) 10 mg PO DAILY [facility] Last Admin: 07/22/22 11:18 Dose: 10 mg Documented By: TEE Epoetin Wai (Epoetin Wai 10,000 Unit/Ml Vial) 10,000 unit SUBCUT TuThSa@1200 [facility] Last Admin: 07/21/22 11:38 Dose: Not Given Documented By: PAULINO-SOFFA Non-Admin Reason: Given in Dialysis Fentanyl (Fentanyl 12 Mcg Patch.Td72) 12 mcg TRANSDERMA Q72H [facility] Last Admin: 07/21/22 19:52 Dose: 12 mcg Documented By: POOL Fluticasone Propionate (Fluticasone Propionate Nasal 16 Gm [place]) 1 spray NOSTRIL-B DAILY [facility] Last Admin: 07/22/22 11:54 Dose: 1 spray Documented By: TEE Furosemide (Furosemide 20 Mg/2 Ml Vial) 20 mg IVPUSH BID@0900,1800 [facility]; Protocol Last Admin: 07/22/22 11:14 Dose: 20 mg Documented By: TEE Meropenem 500 mg/ Sodium (Chloride) 50 mls @ 100 mls/hr IV Q24H [facility] Last Infusion: 07/21/22 17:17 Dose: 0 mls/hr Documented By: SAGE Potassium Chloride 10 meq/Sodium Chloride 85 meq/Magnesium Sulfate 5 meq/Potassium Phosphate 15 mmol/Calcium Gluconate 4.65 meq/Multivitamins 14 ml/ Trace Metals 1.4 ml/ Amino Acids/Electrolytes/Dextrose 720 mls @ 30 mls/hr IVCONT DAILY@1800 [facility] Last Admin: 07/21/22 18:40 Dose: 30 mls/hr Documented By: SAGE Sodium Chloride 100 meq/Magnesium Sulfate 5 meq/Calcium Gluconate 4.65 meq/Multivitamins 10.5 ml/ Trace Metals 1 ml/ Amino Acids/Electrolytes/Dextrose 960 mls @ 40 mls/hr IVCONT DAILY@1800 [facility] Stop: 07/23/22 17:59 Insulin Glargine (Insulin Glargine,Hum.Rec.Anlog 100 Unit/Ml 10 Ml Vial) 19 unit SUBCUT DAILY [facility] Last Admin: 07/22/22 11:54 Dose: 19 unit Documented By: TEE Insulin Human Lispro (Insulin Lispro 100 Unit/Ml 3 Ml Vial) 0 unit SUBCUT QIDACHS [facility]; Protocol Last Admin: 07/22/22 11:56 Dose: Not Given Documented By: TEE Non-Admin Reason: No Insulin Coverage Linezolid (Linezolid 600 Mg Tablet) 600 mg PO Q12H [facility] Last Admin: 07/22/22 03:05 Dose: 600 mg Documented By: POOL Melatonin (Melatonin 3 Mg Tablet) 3 mg PO BEDTIME [facility] Last Admin: 07/21/22 21:27 Dose: 3 mg Documented By: POOL Metoprolol Tartrate (Metoprolol Tartrate 25 Mg Tablet) 25 mg PO TID [facility]; Protocol Last Admin: 07/22/22 11:54 Dose: Not Given Documented By: TEE Non-Admin Reason: Physician Approved Midodrine (Midodrine Hcl 5 Mg Tablet) 5 mg PO TID@0900,1200,1800 [facility] Last Admin: 07/22/22 12:02 Dose: Not Given Documented By: TEE Non-Admin Reason: Patient Refused Midodrine (Midodrine Hcl 5 Mg Tablet) 5 mg PO TUTHSA@0900 [facility] Last Admin: 07/21/22 09:12 Dose: 5 mg Documented By: YTLER Midodrine (Midodrine Hcl 5 Mg Tablet) 10 mg PO TuThSa PRN PRN Reason: LOW BLOOD PRESSURE Multivitamins/Vitamin C (Multivitamin Tablet) 1 tab PO DAILY [facility] Last Admin: 07/22/22 11:18 Dose: 1 tab Documented By: TEE Nitroglycerin (Nitroglycerin 0.4 Mg Tab.Subl) 0.4 mg SUBLINGUAL Q5M PRN PRN Reason: Chest Pain Ondansetron HCl (Ondansetron Hcl 4 Mg/2 Ml Vial) 4 mg IVPUSH Q8H PRN PRN Reason: Nausea and Vomiting Last Admin: 07/21/22 08:43 Dose: 4 mg Documented By: TYLER Pharmacy Consult (Consult Rx Perform Med Rec) 1 each MISCELLANE ONCE PRN PRN Reason: Consult order Polyethylene Glycol (Polyethylene Glycol 3350 17 Gm Powd.Pack) 17 gm PO DAILY [facility] Last Admin: 07/22/22 12:01 Dose: 17 gm Documented By: TEE Primidone (Primidone 50 Mg Tablet) 50 mg PO BEDTIME [facility] Last Admin: 07/21/22 21:26 Dose: 50 mg Documented By: POOL Senna (Sennosides 8.6 Mg Tablet) 17.2 mg PO DAILY [facility] Last Admin: 07/22/22 11:14 Dose: 17.2 mg Documented By: TEE Sodium Chloride (0.9 % Sodium Chloride Flush 3 Ml Syringe) 3 ml IVFLUSH QSHIFT [facility] Last Admin: 07/22/22 11:54 Dose: 3 ml Documented By: TEE Labs CBC & Chem 7: 07/17/22 10:09 07/22/22 08:03 Labs: Laboratory Results - last 24 hr 07/21/22 07/21/22 07/22/22 15:56 21:14 08:03 Anion Gap 17 Estim Creat Clear Calc 29.0 Estimated GFR 20 POC Glucose 202 H 166 H Random Glucose 129 H D Calcium 7.6 L Phosphorus 4.7 H Magnesium 1.9 Albumin 1.9 L 07/22/22 07/22/22 08:26 11:06 Anion Gap Estim Creat Clear Calc Estimated GFR POC Glucose 120 H 143 H Random Glucose Calcium Phosphorus Magnesium Albumin Procedures Date of Service Date of Service: 07/22/22 Progress Note: A&P Assessment and plan (1) Emesis: Status: Acute Assessment and Plan: no further episodes abd soft stoma functioning KUB shows high stool volume in colon diet as tolerated stool softeners/laxatives (2) Sacral decubitus ulcer: Status: Acute Assessment and Plan: pt bedbound, unable to move at all wound care therefore diffcult continue daily wound care change position q2H remains at high risk for other ulcers, worsening of sacral ulcer Time Spent With Patient Time: Total time spent is greater than 50% in coordination of care (as documented) at patient's floor/unit and/or counseling patient: Quality Stroke Does the patient have a stroke diagnosis?: No VTE Prior VTE?: No VTE Risk Level:: Medical - moderate - high VTE Device Contraindication: Treatment Not Indicated VTE Drug Contraindication: N/A - Med Ordered
--- NOTE | 2022-07-22 14:37 | MHC.CM.PN ---
Per MD rounds Patient can discharge today. The facility filled the bed that was offered 2 days ago. They anticipate having a bed to offer Monday. A Hep B has been ordered. The prior Hep B result was .
--- NOTE | 2022-07-22 15:56 | P.PNNP_ITS ---
Subjective Subjective Date of Service: 07/23/22 Interval history: f/u on sepsis d/t decub osteo interval history: feels better, didn't have any further vomitting yesterday Physical Exam Vital Signs: Vital Signs: Last Vital Signs Temp 97.2 F 07/22/22 15:35 Pulse 104 H 07/22/22 15:35 Resp 20 07/22/22 15:35 BP 97/56 L 07/22/22 15:35 Pulse Ox 96 07/22/22 15:35 O2 Del Method 07/22/22 15:35 BMI result Body Mass Index 25.0 Const: General: comfortable and no acute distress Resp: Effort & Inspection: normal respiratory effort Cardio: Rate: regular rate GI: Other: colostomy edematous but functioning, with hard stools Palpation (GI): Soft to palpation and not firm Back/Spine/Pelvis: Other: dressings chamged by staff earlier Objective Data Labs CBC & Chem 7: 07/17/22 10:09 07/23/22 05:43 Labs: Laboratory Results - last 24 hr 07/21/22 07/21/22 07/22/22 15:56 21:14 08:03 Sodium 126 L Potassium 5.2 H D Chloride 95 L Carbon Dioxide 19 L Anion Gap 17 BUN 107 H Creatinine 3.07 H Estim Creat Clear Calc 29.0 Estimated GFR 20 POC Glucose 202 H 166 H Random Glucose 129 H D Calcium 7.6 L Phosphorus 4.7 H Magnesium 1.9 Albumin 1.9 L 07/22/22 07/22/22 08:26 11:06 Sodium Potassium Chloride Carbon Dioxide Anion Gap BUN Creatinine Estim Creat Clear Calc Estimated GFR POC Glucose 120 H 143 H Random Glucose Calcium Phosphorus Magnesium Albumin Microbiology Microbiology Results: Microbiology 07/11/22 06:35 Blood - Arterial Line Blood Culture - Final No growth after 5 days. 07/11/22 06:35 Blood - Arterial Line Blood Culture - Final No growth after 5 days. Procedures Date of Service Date of Service: 07/22/22 Assessment & Plan Assessment and plan (1) ESRD (end stage renal disease): Status: Acute (2) End stage renal disease: Status: Inactive Plan ESRD on HD No s/s of uremia Fluid status acceptable HD in AM Can check 24 hr urine for Cr Cl ; can be done as out patient Resume HD TTS as out patient until 24 hr urine studies are completed and reassess Can follow up with his order dispatcher chief - as out pt Mild hyponatremia Restrict PO water intake to 1.2 L per 24 hrs Anemia Epogen per protool Time Spent With Patient Time: Total time spent is greater than 50% in coordination of care (as documented) at patient's floor/unit and/or counseling patient: Progress Note: Quality Stroke Does the patient have a stroke diagnosis?: No
[2022-07-22 16:56] LABS: Glucose, Whole Blood 170 mg/dL (60-115)
[2022-07-22] MEDS: Insulin Lispro 100 UNIT/ML 3 ML VIAL SUBCUT ×2 (18:54→21:22)
[2022-07-22] MEDS: Acetaminophen 325 MG TABLET 650 MG PO (19:00)
[2022-07-22 20:14] LABS: Glucose, Whole Blood 180 mg/dL (60-115)
[2022-07-22] MEDS: Atorvastatin Calcium 80 MG TABLET PO (21:22)
[2022-07-22] MEDS: Primidone 50 MG TABLET PO (21:22)
[2022-07-22] MEDS: Metoprolol Tartrate 25 MG TABLET PO (21:22)
[2022-07-22] MEDS: Melatonin 3 MG TABLET PO (21:22)
[2022-07-23] VITALS: BP 105/64; PULSE 118; RESP 16; TEMP 36.3; O2SAT 99
[2022-07-23] MEDS: 0.9 % Sodium Chloride Flush 3 ML SYRINGE IVFLUSH ×2 (01:30→08:37)
[2022-07-23] MEDS: oxyCODONE HCl Immed Release 5 MG TABLET PO (01:30)
[2022-07-23 04:00] VITALS: BP 96/58; PULSE 119; RESP 18; TEMP 36.2; O2SAT 97
[2022-07-23] MEDS: Morphine Sulfate 2 MG/ML CARTRIDGE IVPUSH ×2 (04:51→12:52)
[2022-07-23] MEDS: Linezolid 600 MG TABLET PO (04:51)
[2022-07-23 07:59] VITALS: BP 93/53; PULSE 113; RESP 20; TEMP 35.9; O2SAT 93
[2022-07-23 08:00] LABS: Glucose, Whole Blood 230 mg/dL (60-115)
[2022-07-23] MEDS: Ezetimibe 10 MG TABLET PO (08:34)
[2022-07-23] MEDS: Midodrine HCl 5 MG TABLET PO ×3 (08:34→19:03)
[2022-07-23] MEDS: Calcium + Vitamin D 250 MG TABLET 500 MG PO (08:34)
[2022-07-23] MEDS: Aspirin Enteric Coated 81 MG TABLET.DR PO (08:35)
[2022-07-23] MEDS: Apixaban 5 MG TABLET PO ×2 (08:35→22:29)
[2022-07-23 08:36] LABS: Albumin Level 1.8 g/dL (3.5-5.0); Anion Gap 17 (12-20); Blood Urea Nitrogen 118 mg/dL (9-16); Calcium 7.5 mg/dL (8.4-10.2); Carbon Dioxide 17 mmol/L (22-29); Chloride 89 mmol/L (96-108); Creatinine Clr Calc Pharmacy 26.9; Estimated Glomerular Filt Rate 19; Glucose Random 234 mg/dL (60-115); Phosphorus 5.4 mg/dL (2.7-4.5); Sodium 118 mmol/L (135-145); Triglycerides 20 mg/dL
[2022-07-23] MEDS: Ascorbic Acid 500 MG TABLET PO ×2 (08:36→22:29)
[2022-07-23] MEDS: Multivitamin TABLET 1 TAB PO (08:36)
[2022-07-23] MEDS: Insulin Lispro 100 UNIT/ML 3 ML VIAL SUBCUT (08:36)
[2022-07-23] MEDS: Cholestyramine (With Sugar) 4 GM POWD.PACK PO ×2 (08:37→19:03)
[2022-07-23] MEDS: Insulin Glargine,Hum.rec.anlog 100 UNIT/ML 10 ML VIAL 19 UNIT SUBCUT (08:38)
[2022-07-23] MEDS: Fluticasone Propionate Nasal 16 GM SPRAY 1 SPRAY NOSTRIL-B (08:42)
[2022-07-23] MEDS: ondansetron HCL 4 MG/2 ML VIAL IVPUSH (12:52)
[2022-07-23] MEDS: Midodrine HCl 5 MG TABLET 10 MG PO (12:52)
[2022-07-23 13:28] VITALS: BP 120/74
--- NOTE | 2022-07-23 14:25 | P.PNNP_ITS ---
Subjective Subjective Date of Service: 07/23/22 Interval history: Seen on HD Lethargic Received pain Meds Physical Exam Vital Signs: Vital Signs: Last Vital Signs Temp 96.6 F L 07/23/22 07:59 Pulse 113 H 07/23/22 07:59 Resp 20 07/23/22 07:59 BP 120/74 07/23/22 13:28 Pulse Ox 93 07/23/22 07:59 O2 Del Method 07/23/22 07:59 BMI result Body Mass Index 25.0 Const: General: comfortable and no acute distress Resp: Effort & Inspection: normal respiratory effort Cardio: Rate: regular rate GI: Other: colostomy edematous but functioning, with hard stools Palpation (GI): Soft to palpation and not firm Back/Spine/Pelvis: Other: dressings chamged by staff earlier Objective Data Labs CBC & Chem 7: 07/17/22 10:09 07/23/22 05:43 Labs: Laboratory Results - last 24 hr 07/22/22 07/22/22 07/23/22 16:49 20:03 05:43 Sodium 118 L* Potassium 5.0 Chloride 89 L Carbon Dioxide 17 L Anion Gap 17 BUN 118 H Creatinine 3.31 H Estim Creat Clear Calc 26.9 Estimated GFR 19 POC Glucose 170 H 180 H Random Glucose 234 H Calcium 7.5 L Phosphorus 5.4 H Magnesium 2.0 Albumin 1.8 L Triglycerides 20 07/23/22 07:56 Sodium Potassium Chloride Carbon Dioxide Anion Gap BUN Creatinine Estim Creat Clear Calc Estimated GFR POC Glucose 230 H Random Glucose Calcium Phosphorus Magnesium Albumin Triglycerides Microbiology Microbiology Results: Microbiology 07/11/22 06:35 Blood - Arterial Line Blood Culture - Final No growth after 5 days. 07/11/22 06:35 Blood - Arterial Line Blood Culture - Final No growth after 5 days. Procedures Date of Service Date of Service: 07/23/22 Assessment & Plan Assessment and plan (1) ESRD (end stage renal disease): Status: Acute (2) Sacral decubitus ulcer: Status: Acute (3) Emesis: Status: Acute (4) End stage renal disease: Status: Inactive Plan ESRD on HD No s/s of uremia Fluid status Volume is up HD today Can check 24 hr urine for Cr Cl ; can be done as out patient Resume HD TTS as out patient Can follow up with his environmental systems coordinator - as out pt Hyponatremia Restrict PO water intake to 1.2 L per 24 hrs Should correct with HD Anemia Epogen per protool Time Spent With Patient Time: Total time spent is greater than 50% in coordination of care (as documented) at patient's floor/unit and/or counseling patient: Progress Note: Quality Stroke Does the patient have a stroke diagnosis?: No
--- NOTE | 2022-07-23 14:32 | P.PNIM_ITS ---
Subjective Subjective Date of Service: 07/23/22 Interval History: f/u on sepsis d/t decub osteo interval history:has nausea, no pain, Review of Systems no fever no chest pain no sob Physical Exam Vital Signs: Vital Signs: Last Vital Signs Temp 96.6 F L 07/23/22 07:59 Pulse 113 H 07/23/22 07:59 Resp 20 07/23/22 07:59 BP 120/74 07/23/22 13:28 Pulse Ox 93 07/23/22 07:59 O2 Del Method 07/23/22 07:59 BMI result Body Mass Index 25.0 Const: Other: General: AO X 3, no acute distress Resp: CTA bilateral CVS: S1,S2,RRR, some swelling in arms/legs GI: +BS, NT, no distention Skin: see pictures of decub ulcers Neuro: motor grossly intact Psych: appropriate affect Objective Data Active Medications Acetaminophen (Acetaminophen 325 Mg Tablet) 650 mg PO Q6H PRN PRN Reason: Pain, Mild (Pain Scale 1-3) Last Admin: 07/22/22 19:00 Dose: 650 mg Documented By: TEE Apixaban (Apixaban 5 Mg Tablet) 5 mg PO BID [facility] Last Admin: 07/23/22 08:35 Dose: 5 mg Documented By: MAGALY Ascorbic Acid (Ascorbic Acid 500 Mg Tablet) 500 mg PO BID [facility] Last Admin: 07/23/22 08:36 Dose: 500 mg Documented By: MAGALY Aspirin (Aspirin Enteric Coated 81 Mg Tablet.) 81 mg PO DAILY [facility] Last Admin: 07/23/22 08:35 Dose: 81 mg Documented By: MAGALY Atorvastatin Calcium (Atorvastatin Calcium 80 Mg Tablet) 80 mg PO BEDTIME [facility] Last Admin: 07/22/22 21:22 Dose: 80 mg Documented By: RAYRAY Calcium Carbonate/Cholecalciferol (Calcium + Vitamin D 250 Mg Tablet) 500 mg PO DAILY [facility] Last Admin: 07/23/22 08:34 Dose: 500 mg Documented By: MAGALY Cholestyramine Resin (Cholestyramine (With Sugar) 4 Gm Powd.Pack) 4 gm PO BIDWM [facility] Last Admin: 07/23/22 08:37 Dose: 4 gm Documented By: MAGALY Diphenhydramine HCl (Diphenhydramine Hcl 25 Mg Capsule) 25 mg PO TID PRN PRN Reason: Itching Docusate Sodium (Docusate Sodium 100 Mg Capsule) 100 mg PO DAILY [facility] Last Admin: 07/22/22 12:03 Dose: 100 mg Documented By: TEE Ezetimibe (Ezetimibe 10 Mg Tablet) 10 mg PO DAILY [facility] Last Admin: 07/23/22 08:34 Dose: 10 mg Documented By: MAGALY Epoetin Wai (Epoetin Wai 10,000 Unit/Ml Vial) 10,000 unit SUBCUT TuThSa@1200 [facility] Last Admin: 07/21/22 11:38 Dose: Not Given Documented By: PAULINO-SOFFA Non-Admin Reason: Given in Dialysis Fentanyl (Fentanyl 12 Mcg Patch.Td72) 12 mcg TRANSDERMA Q72H [facility] Last Admin: 07/21/22 19:52 Dose: 12 mcg Documented By: POOL Fluticasone Propionate (Fluticasone Propionate Nasal 16 Gm [place]) 1 spray NOSTRIL-B DAILY [facility] Last Admin: 07/23/22 08:42 Dose: 1 spray Documented By: MAGALY Furosemide (Furosemide 20 Mg/2 Ml Vial) 20 mg IVPUSH BID@0900,1800 [facility]; Protocol Last Admin: 07/23/22 13:27 Dose: Not Given Documented By: MAGALY Non-Admin Reason: Decreased Blood Pressure Meropenem 500 mg/ Sodium (Chloride) 50 mls @ 100 mls/hr IV Q24H [facility] Last Infusion: 07/22/22 16:47 Dose: 0 mls/hr Documented By: TEE Sodium Chloride 100 meq/Magnesium Sulfate 5 meq/Calcium Gluconate 4.65 meq/Multivitamins 10.5 ml/ Trace Metals 1 ml/ Amino Acids/Electrolytes/Dextrose 960 mls @ 40 mls/hr IVCONT DAILY@1800 [facility] Stop: 07/23/22 17:59 Last Admin: 07/22/22 18:55 Dose: 40 mls/hr Documented By: TEE Sodium Chloride 130 meq/Magnesium Sulfate 5 meq/Calcium Gluconate 4.65 meq/Multivitamins 14 ml/ Trace Metals 1.4 ml/ Amino Acids/Electrolytes/Dextrose 720 mls @ 30 mls/hr IVCONT DAILY@1800 [facility] Stop: 07/24/22 17:59 Insulin Glargine (Insulin Glargine,Hum.Rec.Anlog 100 Unit/Ml 10 Ml Vial) 19 unit SUBCUT DAILY [facility] Last Admin: 07/23/22 08:38 Dose: 19 unit Documented By: MAGALY Insulin Human Lispro (Insulin Lispro 100 Unit/Ml 3 Ml Vial) 0 unit SUBCUT QIDACHS [facility]; Protocol Last Admin: 07/23/22 08:36 Dose: 4 unit Documented By: MAGALY Linezolid (Linezolid 600 Mg Tablet) 600 mg PO Q12H [facility] Last Admin: 07/23/22 04:51 Dose: 600 mg Documented By: THAIS Melatonin (Melatonin 3 Mg Tablet) 3 mg PO BEDTIME [facility] Last Admin: 07/22/22 21:22 Dose: 3 mg Documented By: RAYRAY Metoprolol Tartrate (Metoprolol Tartrate 25 Mg Tablet) 25 mg PO TID [facility]; Protocol Last Admin: 07/23/22 08:44 Dose: Not Given Documented By: MAGALY Non-Admin Reason: Decreased Blood Pressure Midodrine (Midodrine Hcl 5 Mg Tablet) 5 mg PO TID@0900,1200,1800 [facility] Last Admin: 07/23/22 12:52 Dose: Not Given Documented By: MAGALY Non-Peggy Reason: prn dose given Midodrine (Midodrine Hcl 5 Mg Tablet) 5 mg PO TUTHSA@0900 [facility] Last Admin: 07/23/22 08:35 Dose: 5 mg Documented By: MAGALY Midodrine (Midodrine Hcl 5 Mg Tablet) 10 mg PO TuThSa PRN PRN Reason: LOW BLOOD PRESSURE Last Admin: 07/23/22 12:52 Dose: 10 mg Documented By: MAGALY Morphine Sulfate (Morphine Sulfate 2 Mg/Ml Cartridge) 2 mg IVPUSH Q6H PRN; Protocol PRN Reason: Pain, Severe (Pain Scale 7-10) Last Admin: 07/23/22 12:52 Dose: 2 mg Documented By: MAGALY Multivitamins/Vitamin C (Multivitamin Tablet) 1 tab PO DAILY [facility] Last Admin: 07/23/22 08:36 Dose: 1 tab Documented By: HO.MORRIA Nitroglycerin (Nitroglycerin 0.4 Mg Tab.Subl) 0.4 mg SUBLINGUAL Q5M PRN PRN Reason: Chest Pain Ondansetron HCl (Ondansetron Hcl 4 Mg/2 Ml Vial) 4 mg IVPUSH Q8H PRN PRN Reason: Nausea and Vomiting Last Admin: 07/23/22 12:52 Dose: 4 mg Documented By: MAGALY Oxycodone HCl (Oxycodone Hcl Immed Release 5 Mg Tablet) 5 mg PO Q6H PRN PRN Reason: Pain, Moderate (Pain Scale 4-6 Last Admin: 07/23/22 01:30 Dose: 5 mg Documented By: THAIS Pharmacy Consult (Consult Rx Perform Med Rec) 1 each MISCELLANE ONCE PRN PRN Reason: Consult order Polyethylene Glycol (Polyethylene Glycol 3350 17 Gm Powd.Pack) 17 gm PO DAILY [facility] Last Admin: 07/23/22 08:39 Dose: Not Given Documented By: MAGALY Non-Admin Reason: Patient Refused Primidone (Primidone 50 Mg Tablet) 50 mg PO BEDTIME [facility] Last Admin: 07/22/22 21:22 Dose: 50 mg Documented By: RAYRAY Senna (Sennosides 8.6 Mg Tablet) 17.2 mg PO DAILY [facility] Last Admin: 07/23/22 08:39 Dose: Not Given Documented By: MAGALY Non-Admin Reason: Patient Refused Sodium Chloride (0.9 % Sodium Chloride Flush 3 Ml Syringe) 3 ml IVFLUSH QSHIFT [facility] Last Admin: 07/23/22 08:37 Dose: 3 ml Documented By: MAGALY Labs CBC & Chem 7: 07/17/22 10:09 07/23/22 05:43 Labs: Laboratory Results - last 24 hr 07/22/22 07/22/22 07/23/22 16:49 20:03 05:43 Anion Gap 17 Estim Creat Clear Calc 26.9 Estimated GFR 19 POC Glucose 170 H 180 H Random Glucose 234 H Calcium 7.5 L Phosphorus 5.4 H Magnesium 2.0 Albumin 1.8 L Triglycerides 20 07/23/22 07:56 Anion Gap Estim Creat Clear Calc Estimated GFR POC Glucose 230 H Random Glucose Calcium Phosphorus Magnesium Albumin Triglycerides Assessment and Plan (1) NSVT (nonsustained ventricular tachycardia): Status: Acute (2) Sacral decubitus ulcer: Status: Acute Plan 59-year-old male with history of hyperlipidemia, insulin-dependent type 2 diabetes, orthostatic hypotension, ESRD on dialysis T//Mon following with Milton Saab, essential tremor, coronary artery disease s/p CABG 12 years ago, chronic systolic heart failure, 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 Avina in ID admitted for chest pain found to be septic with stage IV decubitus ulcer of the sacrum with osteomyelitis. #Sepsis- secondary to stage IV decubitus ulcer of the sacrum with osteomyelitis -leukocytosis has been chronic over the last few months secondary to osteomyelitis but remains elevated despite completing IV antibiotics at 13.0.? ID recommended IV meropenem and PO zyvox for 6 weeks. Clinically stable at moment. WBC is down to 12 as of 07/17 and otherwise has no features of sepsis at this time #extensive Stage IV decubitus ulcer sacrum- present on arrival, Seen by surgery and s/p debridement, preventative measures with frequent turning, appropriate bed. TPN initiated fot promote wound healing # ESRD--to continue usual schedule of dialysis (Monday, and Monday) # Anasarca-secondary to ESRD--fluid removal at dialysis, challenge removing fluid durng dialysis due to underlying low BP #hyponatremia..chronic with acute sodium level 118, discussed with Nephro and adjustment will be made during dialyis #Malnutrition with protein deficiency with protein deficiency--Started on TPN since 07/19 to promote wound healing # chest pain-resolved with no evidence of ACS #Vomitting and dilated stomach--xray showed dilated stomach but no evidence of bowel obstruction and was asssesed by surgery and clinically seem to have resolved. #Permanent AFIB --intermittent tachycardia, HR seem better controlled with Metoprolol 25 tid # hypotension--Not due to sepsis, has chronic hypotension on on Midodrine # paroxysmal atrial fibrillation--rate uncontrolled., continue eliquis #SVT -Patient was on Toprolol at home and only changed to metoprolol, cardiology was not aware of this. Will continue metoprolol at present dose # coronary artery disease-chest pain resolved -continue ASA, Eliquis, atorvastatin.? continue beta willow # insulin-dependent type 2 diabetes with hyperglycemia -POC glucose -diabetic diet -Humalog on sliding scale -dose adjusted Lantus 19 units daily #Chronic systolic heart failure -compensated -continue home meds #discoid lupus erythematous -continue home meds # generalized weakness # Constipation as seeen on CT--add Miralax Vomitting, abd exam is bening and no pain, will get an xray need for inaptient: sepsis requiring IV Abx and awaiting placement Quality Stroke Does the patient have a stroke diagnosis?: No VTE Prior VTE?: No VTE Risk Level:: Medical - moderate - high VTE Device Contraindication: Treatment Not Indicated VTE Drug Contraindication: N/A - Med Ordered
[2022-07-23 15:09] VITALS: BP 99/51; PULSE 110; RESP 14; TEMP 36.1; O2SAT 94
[2022-07-23 15:27] LABS: Glucose, Whole Blood 95 mg/dL (60-115)
[2022-07-23 16:23] LABS: Glucose, Whole Blood 97 mg/dL (60-115)
[2022-07-23 19:03] VITALS: BP 88/53; PULSE 132; RESP 16; TEMP 36.1
[2022-07-23 20:01] LABS: Glucose, Whole Blood 92 mg/dL (60-115)
--- NOTE | 2022-07-23 20:39 | PC.NURSE ---
PT AxOX 2, had breakfast and was then transported to dialysis. Midodrine was given prior for maintenance of BP. Pt also given extra doses during dialysis at BP decreased to Low 70's SBP, BP increased to low 100's SBP. After dialysis, pt was hard to arouse, notified , was then present at bedside. No new orders given, noted it from dialyis, POC of 97 and BP of 90/58.
[2022-07-23] MEDS: Melatonin 3 MG TABLET PO (22:29)
[2022-07-23] MEDS: Atorvastatin Calcium 80 MG TABLET PO (22:29)
[2022-07-23] MEDS: Primidone 50 MG TABLET PO (22:29)
[2022-07-24] VITALS (40 sets, daily range): BP systolic 73–143; BP diastolic 41–83; PULSE 92–136; RESP 6–26; TEMP 31.6–37.1; O2SAT 79–100
--- NOTE | 2022-07-24 | ECG_ITS ---
Test Reason : afib Blood Pressure : / mmHG Vent. Rate : 122 BPM Atrial Rate : 000 BPM P-R Int : 000 ms QRS Dur : 102 ms QT Int : 332 ms P-R-T Axes : 000 030 259 degrees QTc Int : 473 ms Atrial fibrillation with rapid ventricular response Low voltage QRS Possible Inferior infarct , age undetermined Abnormal ECG When compared with ECG of 11-JUL-2022 05:27, No significant change was found Referred By: Holli Moreno Electronically Signed By:SOURAV UP MD
[2022-07-24] MEDS: Linezolid 600 MG TABLET PO (00:04)
[2022-07-24] MEDS: 0.9 % Sodium Chloride Flush 3 ML SYRINGE IVFLUSH ×4 (01:08→23:48)
[2022-07-24] MEDS: Morphine Sulfate 2 MG/ML CARTRIDGE IVPUSH ×2 (04:52→12:09)
[2022-07-24] MEDS: ondansetron HCL 4 MG/2 ML VIAL IVPUSH (05:10)
[2022-07-24 08:01] LABS: Albumin Level 1.9 g/dL (3.5-5.0); Anion Gap 16 (12-20); Blood Urea Nitrogen 74 mg/dL (9-16); Calcium 7.6 mg/dL (8.4-10.2); Carbon Dioxide 13 mmol/L (22-29); Chloride 97 mmol/L (96-108); Creatinine Clr Calc Pharmacy 37.9; Estimated Glomerular Filt Rate 28; Glucose Random 96 mg/dL (60-115); Magnesium 1.9 mg/dL (1.6-2.6); Phosphorus 4.5 mg/dL (2.7-4.5); Potassium 4.3 mmol/L (3.3-5.1); Sodium 122 mmol/L (135-145)
[2022-07-24 08:54] LABS: Glucose, Whole Blood 66 mg/dL (60-115)
[2022-07-24] MEDS: Dextrose 50 % 25 GM/50 ML SYRINGE IVPUSH (09:40)
[2022-07-24] MEDS: Prochlorperazine Edisylate 10 MG/2 ML VIAL 5 MG IV (09:46)
[2022-07-24 09:50] LABS: Glucose, Whole Blood 65 mg/dL (60-115)
[2022-07-24] MEDS: Furosemide 20 MG/2 ML VIAL IVPUSH (09:58)
[2022-07-24] MEDS: polyethylene glycoL 3350 17 GM POWD.PACK PO (09:58)
[2022-07-24] MEDS: Cholestyramine (With Sugar) 4 GM POWD.PACK PO (09:59)
[2022-07-24] MEDS: Metoprolol Tartrate 25 MG TABLET PO (10:14)
[2022-07-24] MEDS: Glucose Gel 15 GM GEL..GRAM. PO (10:23)
[2022-07-24 10:49] LABS: Glucose, Whole Blood 58 mg/dL (60-115)
[2022-07-24 10:49] LABS: Glucose, Whole Blood 83 mg/dL (60-115)
[2022-07-24 11:28] LABS: Glucose, Whole Blood 93 mg/dL (60-115)
[2022-07-24 11:46] LABS: Glucose, Whole Blood 79 mg/dL (60-115)
[2022-07-24 11:46] LABS: Troponin-I High Sensitivity 107.2 ng/L (<3.5-35.0)
[2022-07-24] MEDS: Amiodarone HCL 200 MG TABLET 400 MG PO (12:02)
[2022-07-24] MEDS: Midodrine HCl 5 MG TABLET PO (12:09)
[2022-07-24 12:41] LABS: Glucose, Whole Blood 85 mg/dL (60-115)
[2022-07-24 12:46] LABS: Lactic Acid 13.6 mmol/L (0.5-2.0)
[2022-07-24 13:13] LABS: Reflex Lactate? Lactic Acid Added
--- NOTE | 2022-07-24 13:17 | PC.NURSE ---
Patient went unresponsive at this time in front of this RN and Erika Barrera RN while attempting to place NG tube. No response to sternal rub, patient breathing spontaneously, faint pulse upon palpation, rapid code called at 1318. Patient was previously a/ox4, following directions, communicating, and agreeable to NG tube placement. See code blue sheet for further details.
--- NOTE | 2022-07-24 13:46 | HO.PM.IMPN ---
Subjective Subjective Date of Service: 07/24/22 Interval History: This morning pt was awake, answering questions appropriately but visibly tired. C/o nausea with eating. AM BG 65, normalized after D50. Denied abd pain. Late morning he developed chest pressure. Discussed with surgery and planned for AXR, which showed distended stomach. Hs-Tn-I 107. EKG AF, no clear acute ischemia. I noted his serum bicarb this morning was only 13 so ordered a lactate which was reported at 12:41 as 13.8. I ordered NGT and stat CT A/P and updated family at bedside. Subsequently, [employer] called for unresponsiveness and subsequently code blue for PEA with ROSC achieved. Refer to Event Note for details. Review of Systems Review of Systems: Yes all other systems are reviewed and are negative Physical Exam Vital Signs: Vital Signs: Last Vital Signs Temp 96.9 F 07/24/22 11:49 Pulse 98 07/24/22 12:13 Resp 18 07/24/22 12:13 BP 95/56 L 07/24/22 12:13 Pulse Ox 100 07/24/22 12:13 O2 Del Method 07/24/22 12:13 O2 Flow Rate 2 07/24/22 12:13 BMI result Body Mass Index 25.0 Gen: intubated, being bagged HEENT: sclera anicteric, moist mucus membranes Neck: supple Lungs: dimimished Heart: rapid, irregular Abd: soft, ostomy pink with hard stool Ext: 2+ leg and scrotal edema Skin: cool, dry Neuro: intubated Objective Data Active Medications Acetaminophen (Acetaminophen 325 Mg Tablet) 650 mg PO Q6H PRN PRN Reason: Pain, Mild (Pain Scale 1-3) Last Admin: 07/22/22 19:00 Dose: 650 mg Amiodarone HCl (Amiodarone Hcl 200 Mg Tablet) 400 mg PO BID [facility] Stop: 07/30/22 21:01 Last Admin: 07/24/22 12:02 Dose: 400 mg Documented By: NAYA Amiodarone HCl (Amiodarone Hcl 200 Mg Tablet) 200 mg PO DAILY [facility] Apixaban (Apixaban 5 Mg Tablet) 5 mg PO BID [facility] Last Admin: 07/23/22 22:29 Dose: 5 mg Documented By: MARANDA Ascorbic Acid (Ascorbic Acid 500 Mg Tablet) 500 mg PO BID [facility] Last Admin: 07/23/22 22:29 Dose: 500 mg Documented By: MARANDA Aspirin (Aspirin Enteric Coated 81 Mg Tablet.) 81 mg PO DAILY [facility] Last Admin: 07/23/22 08:35 Dose: 81 mg Documented By: MAGALY Atorvastatin Calcium (Atorvastatin Calcium 80 Mg Tablet) 80 mg PO BEDTIME [facility] Last Admin: 07/23/22 22:29 Dose: 80 mg Documented By: MARANDA Calcium Carbonate/Cholecalciferol (Calcium + Vitamin D 250 Mg Tablet) 500 mg PO DAILY [facility] Last Admin: 07/23/22 08:34 Dose: 500 mg Documented By: MAGALY Cholestyramine Resin (Cholestyramine (With Sugar) 4 Gm Powd.Pack) 4 gm PO BIDWM [facility] Last Admin: 07/24/22 09:59 Dose: 4 gm Documented By: NAYA Dextrose (Dextrose 50 % 25 Gm/50 Ml Vial) 25 gm IVPUSH Q15M PRN; Protocol PRN Reason: per Hypoglycemia Standing Ord. Last Admin: 07/24/22 12:44 Dose: 25 gm Documented By: NAYA Diphenhydramine HCl (Diphenhydramine Hcl 25 Mg Capsule) 25 mg PO TID PRN PRN Reason: Itching Docusate Sodium (Docusate Sodium 100 Mg Capsule) 100 mg PO DAILY [facility] Last Admin: 07/22/22 12:03 Dose: 100 mg Documented By: TEE Ezetimibe (Ezetimibe 10 Mg Tablet) 10 mg PO DAILY [facility] Last Admin: 07/23/22 08:34 Dose: 10 mg Documented By: MAGALY Epoetin Wai (Epoetin Wai 10,000 Unit/Ml Vial) 10,000 unit SUBCUT TuThSa@1200 [facility] Last Admin: 07/23/22 15:55 Dose: Not Given Documented By: MAGALY Non-Admin Reason: Given in Dialysis Fentanyl (Fentanyl 12 Mcg Patch.Td72) 12 mcg TRANSDERMA Q72H [facility] Last Admin: 07/21/22 19:52 Dose: 12 mcg Documented By: POOL Fluticasone Propionate (Fluticasone Propionate Nasal 16 Gm [place]) 1 spray NOSTRIL-B DAILY [facility] Last Admin: 07/23/22 08:42 Dose: 1 spray Documented By: MAGALY Furosemide (Furosemide 20 Mg/2 Ml Vial) 20 mg IVPUSH BID@0900,1800 [facility]; Protocol Last Admin: 07/24/22 09:58 Dose: 20 mg Documented By: NAYA Glucose (Glucose Gel 15 Gm Gel..Gram.) 15 gm PO Q15M PRN; Protocol PRN Reason: per Hypoglycemia Standing Ord. Last Admin: 07/24/22 10:23 Dose: 15 gm Documented By: NAYA Sodium Chloride 130 meq/Magnesium Sulfate 5 meq/Calcium Gluconate 4.65 meq/Multivitamins 14 ml/ Trace Metals 1.4 ml/ Amino Acids/Electrolytes/Dextrose 720 mls @ 30 mls/hr IVCONT DAILY@1800 [facility] Stop: 07/24/22 17:59 Last Admin: 07/23/22 18:24 Dose: 30 mls/hr Documented By: SAGE Meropenem 500 mg/ Sodium (Chloride) 50 mls @ 100 mls/hr IV Q24H [facility] Stop: 08/23/22 23:29 Last Infusion: 07/24/22 01:01 Dose: 0 mls/hr Documented By: MARANDA Sodium Chloride 135 meq/Magnesium Sulfate 5 meq/Calcium Gluconate 4.65 meq/Multivitamins 14 ml/ Trace Metals 1.4 ml/ Amino Acids/Electrolytes/Dextrose 720 mls @ 30 mls/hr IVCONT DAILY@1800 [facility] Stop: 07/25/22 17:59 Insulin Human Lispro (Insulin Lispro 100 Unit/Ml 3 Ml Vial) 0 unit SUBCUT QIDACHS [facility]; Protocol Last Admin: 07/24/22 11:33 Dose: Not Given Documented By: NAYA Non-Admin Reason: No Insulin Coverage Linezolid (Linezolid 600 Mg Tablet) 600 mg PO Q12H [facility] Stop: 08/09/22 11:01 Last Admin: 07/24/22 00:04 Dose: 600 mg Documented By: MARANDA Melatonin (Melatonin 3 Mg Tablet) 3 mg PO BEDTIME [facility] Last Admin: 07/23/22 22:29 Dose: 3 mg Documented By: MARANDA Midodrine (Midodrine Hcl 5 Mg Tablet) 5 mg PO TID@0900,1200,1800 [facility] Last Admin: 07/24/22 12:09 Dose: 5 mg Documented By: NAYA Midodrine (Midodrine Hcl 5 Mg Tablet) 5 mg PO TUTHSA@0900 [facility] Last Admin: 07/23/22 08:35 Dose: 5 mg Midodrine (Midodrine Hcl 5 Mg Tablet) 10 mg PO TuThSa PRN PRN Reason: LOW BLOOD PRESSURE Last Admin: 07/23/22 12:52 Dose: 10 mg Documented By: MAGALY Morphine Sulfate (Morphine Sulfate 2 Mg/Ml Cartridge) 2 mg IVPUSH Q6H PRN; Protocol PRN Reason: Pain, Severe (Pain Scale 7-10) Last Admin: 07/24/22 12:09 Dose: 2 mg Documented By: NAYA Multivitamins/Vitamin C (Multivitamin Tablet) 1 tab PO DAILY [facility] Last Admin: 07/23/22 08:36 Dose: 1 tab Documented By: MAGALY Nitroglycerin (Nitroglycerin 0.4 Mg Tab.Subl) 0.4 mg SUBLINGUAL Q5M PRN PRN Reason: Chest Pain Ondansetron HCl (Ondansetron Hcl 4 Mg/2 Ml Vial) 4 mg IVPUSH Q8H PRN PRN Reason: Nausea and Vomiting Last Admin: 07/24/22 05:10 Dose: 4 mg Documented By: MARANDA Oxycodone HCl (Oxycodone Hcl Immed Release 5 Mg Tablet) 5 mg PO Q6H PRN PRN Reason: Pain, Moderate (Pain Scale 4-6 Last Admin: 07/23/22 01:30 Dose: 5 mg Pharmacy Consult (Consult Rx Perform Med Rec) 1 each MISCELLANE ONCE PRN PRN Reason: Consult order Polyethylene Glycol (Polyethylene Glycol 3350 17 Gm Powd.Pack) 17 gm PO DAILY [facility] Last Admin: 07/24/22 09:58 Dose: 17 gm Documented By: NAYA Primidone (Primidone 50 Mg Tablet) 50 mg PO BEDTIME [facility] Last Admin: 07/23/22 22:29 Dose: 50 mg Documented By: MARANDA Prochlorperazine Edisylate (Prochlorperazine Edisylate 10 Mg/2 Ml Vial) 5 mg IV Q4H PRN PRN Reason: N/V UNRELIEVED BY LUIS DANIEL Last Admin: 07/24/22 09:46 Dose: 5 mg Documented By: NAYA Senna (Sennosides 8.6 Mg Tablet) 17.2 mg PO DAILY [facility] Last Admin: 07/23/22 08:39 Dose: Not Given Documented By: MAGALY Non-Admin Reason: Patient Refused Sodium Chloride (0.9 % Sodium Chloride Flush 3 Ml Syringe) 3 ml IVFLUSH QSHIFT [facility] Last Admin: 07/24/22 09:41 Dose: 3 ml Documented By: NAYA Labs CBC & Chem 7: 07/17/22 10:09 07/24/22 06:21 Labs: Laboratory Results - last 24 hr 07/23/22 07/23/22 07/23/22 15:23 16:12 19:57 Anion Gap Estim Creat Clear Calc Estimated GFR POC Glucose 95 97 92 Random Glucose Lactic Acid Calcium Phosphorus Magnesium Troponin I High Sens Albumin 07/24/22 07/24/22 07/24/22 06:21 08:46 09:46 Anion Gap 16 Estim Creat Clear Calc 37.9 Estimated GFR 28 POC Glucose 66 65 Random Glucose 96 Lactic Acid Calcium 7.6 L Phosphorus 4.5 Magnesium 1.9 Troponin I High Sens Albumin 1.9 L 07/24/22 07/24/22 07/24/22 10:20 10:34 11:08 Anion Gap Estim Creat Clear Calc Estimated GFR POC Glucose 58 L* 83 Random Glucose Lactic Acid 13.6 H* Calcium Phosphorus Magnesium Troponin I High Sens Albumin 07/24/22 07/24/22 07/24/22 11:08 11:11 11:42 Anion Gap Estim Creat Clear Calc Estimated GFR POC Glucose 93 79 Random Glucose Lactic Acid Calcium Phosphorus Magnesium Troponin I High Sens 107.2 H* D Albumin 07/24/22 12:37 Anion Gap Estim Creat Clear Calc Estimated GFR POC Glucose 85 Random Glucose Lactic Acid Calcium Phosphorus Magnesium Troponin I High Sens Albumin Assessment and Plan (1) NSVT (nonsustained ventricular tachycardia): Status: Acute (2) Sacral decubitus ulcer: Status: Acute Plan d#14 59yo M with CAD s/p CABG, chronic HFrEF, ESRD on HD TuThSa, DM2, orthostatic hypotension, protein-calorie malnutrition, discoid SLE, and sacral osteomyelitis due to stage IV decubitus ulcer which has been managed since March 2022 with debridement and IV ABX, admitted for sepsis due to the sacral osteomyelitis. Developed gastric distension with severe lactic acidosis and subsequently had PEA arrest. ROSC after 4 rounds of CPR/epi + bicarbonate + Ca. # lactic acidosis # PEA arrest - suspicion of GI tract ischemia. stat CT A/P, Surgery update. transfer to ICU for pressor support # sacral osteomyelitis due to stage IV decubitus ulcer - meropenem + linezolid per ID consultation # protein-calorie malnutrition - on TPN since 07/19/22 # ESRD - HD TuThSa # permanent AF - metoprolol -> amiodarone per Cardiology given chronic hypotension for which he is actually on midodrine - anticoagulated with apixaban # CAD - ASA + atorvastatin # DM2 with hypoglycemia - d/c'ed Lantus, give correction-dose lispro as needed The patient requires continued inpatient hospitalization for the following reasons: ICU care. Quality Stroke Does the patient have a stroke diagnosis?: No VTE Prior VTE?: No VTE Risk Level:: Medical - moderate - high VTE Device Contraindication: Treatment Not Indicated VTE Drug Contraindication: N/A - Med Ordered
--- NOTE | 2022-07-24 13:46 | PM.EVENT ---
Event Note Date of Service: 07/24/22 Event Note: Rapid response called for pt becoming unresponsive. Arrived to find pt with agonal breathing, ill-appearing. Accucheck 85. Subsequently lost pulse and code blue was called for PEA arrest. Pt given 4 cycles of CPR with total 4 mg epinephrine, 100 mEq of Na bicarb, and 1g CaCl with ROSC. Intubated by Dr Pierce. Currently HR 140s and BP 137/92 with agonal breathing supported by bagging. Updated pt's sister/HCP Sendy on plan for transfer to ICU.
--- NOTE | 2022-07-24 13:55 | PC.NURSE ---
Patient under ICU care at this time.
[2022-07-24] MEDS: propofoL 200 MG/20 ML VIAL 50 MG IVPUSH (14:00)
[2022-07-24] MEDS: propofoL 1,000 MG/100 ML VIAL 17.28 MG IVCONT ×3 (14:00→23:42)
[2022-07-24 14:09] LABS: Glucose, Whole Blood 79 mg/dL (60-115)
[2022-07-24] MEDS: fentaNYL citrate/NS 1,000 MCG/100 ML PLAST..BAG 5 MCG IVCONT (14:21)
[2022-07-24] MEDS: Sodium Bicarbonate 8.4% 50 MEQ/50 ML SYRINGE 100 MEQ IVPUSH (14:30)
[2022-07-24] MEDS: iohexoL 350 MG/ML 100 ML INFUS..BTL IV (15:20)
--- NOTE | 2022-07-24 15:23 | PM.CCPN ---
Subjective Subjective Date of Service: 07/24/22 Interval History: 67-year-old gentleman with underlying diabetes mellitus, ESRD on hemodialysis, protein calorie malnutrition, coronary artery disease status post CABG, ischemic cardiomyopathy with EF of 40-45%, paroxysmal AFib, status post AICD, osteomyelitis of stage IV sacral decubitus ulcer, discoid lupus, and diverting colostomy admitted on 07/11/2022 to general medical [facility] for worsening osteomyelitis of his sacral decubitus ulcer and treated with broad-spectrum antibiotics. On 08/03/2020 a.m. with worsening bicarbonate and significantly elevated lactate. Patient with sudden PEA cardiac arrest at approximately 13:00 on 07/24/2022 with returned spontaneous circulation after four rounds of epinephrine, intubated during the CPR and transferred to intensive care unit. Patient woken up after the CPR and required sedative drips. On initial evaluation patient with profound metabolic acidosis despite respiratory compensation. Critical Care Time (minutes): 150 Physical Exam Vital Signs: Vital Signs: Last Vital Signs Temp 96.9 F 07/24/22 11:49 Pulse 128 H 07/24/22 14:50 Resp 6 L 07/24/22 14:50 BP 111/54 L 07/24/22 14:50 Pulse Ox 79 L 07/24/22 14:50 O2 Del Method 07/24/22 14:50 O2 Flow Rate 2 07/24/22 12:13 FiO2 60 07/24/22 14:50 BMI result Body Mass Index 25.0 Const: General: no acute distress and other (sedated on the vent) Eyes: Sclerae: sclerae normal Neck: Neck: Yes no lymphadenopathy, Yes trachea midline and Yes supple Resp: Auscultation: crackles ( diffuse bilateral) Cardio: Rate: tachycardic Rhythm: regular rhythm Heart sounds: no gallops, no murmurs and no rubs GI: Inspection: Yes distended and Yes other ( colostomy) Palpation (GI): Soft to palpation Auscultation: Hypoactive bowel sounds present Extrem: General: Yes no pedal edema, No clubbing and Yes cyanosis (acral) Objective Data Labs CBC & Chem 7: 07/24/22 15:39 07/24/22 15:39 Labs: Laboratory Results - last 24 hr 07/23/22 07/23/22 07/23/22 15:23 16:12 19:57 Sodium Potassium Chloride Carbon Dioxide Anion Gap BUN Creatinine Estim Creat Clear Calc Estimated GFR POC Glucose 95 97 92 Random Glucose Lactic Acid Calcium Phosphorus Magnesium Troponin I High Sens Albumin 07/24/22 07/24/22 07/24/22 06:21 08:46 09:46 Sodium 122 L Potassium 4.3 Chloride 97 Carbon Dioxide 13 L Anion Gap 16 BUN 74 H Creatinine 2.35 H Estim Creat Clear Calc 37.9 Estimated GFR 28 POC Glucose 66 65 Random Glucose 96 Lactic Acid Calcium 7.6 L Phosphorus 4.5 Magnesium 1.9 Troponin I High Sens Albumin 1.9 L 07/24/22 07/24/22 07/24/22 10:20 10:34 11:08 Sodium Potassium Chloride Carbon Dioxide Anion Gap BUN Creatinine Estim Creat Clear Calc Estimated GFR POC Glucose 58 L* 83 Random Glucose Lactic Acid 13.6 H* Calcium Phosphorus Magnesium Troponin I High Sens Albumin 07/24/22 07/24/22 07/24/22 11:08 11:11 11:42 Sodium Potassium Chloride Carbon Dioxide Anion Gap BUN Creatinine Estim Creat Clear Calc Estimated GFR POC Glucose 93 79 Random Glucose Lactic Acid Calcium Phosphorus Magnesium Troponin I High Sens 107.2 H* D Albumin 07/24/22 07/24/22 12:37 13:17 Sodium Potassium Chloride Carbon Dioxide Anion Gap BUN Creatinine Estim Creat Clear Calc Estimated GFR POC Glucose 85 79 Random Glucose Lactic Acid Calcium Phosphorus Magnesium Troponin I High Sens Albumin Microbiology Microbiology Results: Microbiology 07/11/22 06:35 Blood - Arterial Line Blood Culture - Final No growth after 5 days. 07/11/22 06:35 Blood - Arterial Line Blood Culture - Final No growth after 5 days. Progress Note: A&P Assessment and plan (1) Cardiac arrest: Status: Acute (2) Metabolic acidosis: Status: Acute (3) Acute respiratory failure: Status: Acute (4) ESRD (end stage renal disease): Status: Acute (5) CAD (coronary artery disease): Status: Acute (6) Chronic systolic heart failure: Status: Acute (7) Type 2 diabetes mellitus with hyperglycemia: Status: Acute (8) Stage IV pressure ulcer of sacral region: Status: Acute (9) Sacral osteomyelitis: Status: Acute (10) Acute blood loss anemia: Status: Acute (11) Hemorrhagic shock: Status: Acute (12) Upper GI bleed: Status: Acute Plan Assessment: 67-year-old gentleman with multiple medical issues admitted with worsening of sacral ulcer with osteomyelitis with hospital course complicated by metabolic acidosis resulting in PEA cardiac arrest, status post return of spontaneous circulation after 4 rounds of CPR Plan: Neuro: woken up after CPR and required sedative drips to remain on ventilatory support Cardiac: PEA cardiac arrest, status post return of spontaneous circulation after four rounds of CPR. Underlying CAD, chronic systolic congestive heart failure, and AFib. Continue on vasopressor support. Troponins flat. 2D echocardiogram moderate. Pulmonary: Intubated during the CPR, continue ventilatory support. Renal: Acute metabolic acidosis with possible abdominal source, CT abdomen is pending. Underlying end-stage renal disease on hemodialysis Monday, , and Monday. Continue on bicarbonate drip. Endo: No acute issues. GI: Possible abdominal source for metabolic acidosis, CT abdomen imaging discussed with consulting general surgeon and no is planned at this time. 700 cc of partially digested blood on OGT tube placement. Likely secondary to upper GI bleed. Gastroenterology evaluation requested. EGD planned when hematocrit is above 20. PPI drip. ID: No evidence of septic shock. Underlying sacral osteomyelitis, continue on broad-spectrum antibiotics. Heme/Onc: acute blood loss anemia, patient to receive 3 units of packed red blood cells, 1 FFP, 1 platelets. Continue to monitor hemoglobin level. Psych: No acute issues. Miscellaneous: No acute issues. Prophylaxis: PPI drip, intermittent compression Diet: nothing by mouth Critical care time spent: 150 minutes Quality Stroke Does the patient have a stroke diagnosis?: No VTE Prior VTE?: No VTE Risk Level:: Medical - moderate - high VTE Device Contraindication: Treatment Not Indicated VTE Drug Contraindication: N/A - Med Ordered
[2022-07-24 15:55] LABS: Basophils Percent Auto 0.1 % (0-2); Imm Gran Abs Auto 0.75 X10*3/uL (0.00-0.03); Lymphocytes Absolute Auto 0.9 X10*3/uL (1.2-4.9); Lymphocytes Percent Auto 3.6 % (20-40); MANUAL DIFF FLAG SCAN; Mean Corpuscular HGB Conc 31.3 g/dl (31.0-36.0); Mean Corpuscular Hemoglobin 32.4 pg (27.0-33.0); Mean Corpuscular Volume 103.7 fL (80.0-98.0); Mean Platelet Volume 10.7 fL (9.4-12.4); Monocytes Percent Auto 3.8 % (2-11); NRBC Pct Auto 0.3 /100WBC (0.0-0.2); Neutrophils Absolute Auto 22.4 x10*3/uL (2.0-8.3); Neutrophils Percent Auto 89.5 % (45-73); Red Blood Count 1.08 X10*6/uL (4.60-5.80); SCAN SMEAR FLAG 1; White Blood Count 25.1 X10*3/uL (4.8-10.8)
[2022-07-24 15:56] LABS: Platelet Count 87 X10*3/uL (160-400)
[2022-07-24 15:59] LABS: Hemoglobin 3.5 g/dl (14.0-18.0)
[2022-07-24 16:00] LABS: Hematocrit 11.2 % (42.0-52.0)
[2022-07-24] MEDS: Sodium Bicarbonate 8.4% 150 MEQ in Dextrose 5 % 850 ML 100 MEQ IV (16:00)
[2022-07-24] MEDS: Lactated Ringers 1,000 ML 999 ML IV (16:03)
--- NOTE | 2022-07-24 16:07 | P.PNNP_ITS ---
Subjective Subjective Date of Service: 07/24/22 Interval history: On 08/03/2020 a.m. pt had worsening bicarbonate and significantly elevated lactate. Patient with sudden PEA cardiac arrest at approximately 13:00 on 07/24/2022 with returned spontaneous circulation after four rounds of epinephrine, intubated during the CPR and transferred to intensive care unit. On initial evaluation patient with profound metabolic acidosis despite respiratory compensation. Physical Exam Vital Signs: Vital Signs: Last Vital Signs Temp 96.9 F 07/24/22 11:49 Pulse 128 H 07/24/22 14:50 Resp 6 L 07/24/22 14:50 BP 111/54 L 07/24/22 14:50 Pulse Ox 79 L 07/24/22 14:50 O2 Del Method 07/24/22 14:50 O2 Flow Rate 2 07/24/22 12:13 FiO2 100 07/24/22 15:48 BMI result Body Mass Index 25.0 Const: General: no acute distress and other (sedated on the vent) Eyes: Sclerae: sclerae normal Neck: Neck: Yes no lymphadenopathy, Yes trachea midline and Yes supple Resp: Auscultation: crackles ( diffuse bilateral) Cardio: Rate: tachycardic Rhythm: regular rhythm Heart sounds: no gallops, no murmurs and no rubs GI: Inspection: Yes distended and Yes other ( colostomy) Palpation (GI): Soft to palpation Auscultation: Hypoactive bowel sounds present Extrem: General: Yes no pedal edema, No clubbing and Yes cyanosis (acral) Objective Data Labs CBC & Chem 7: 07/24/22 15:39 07/24/22 06:21 Labs: Laboratory Results - last 24 hr 07/23/22 07/23/22 07/24/22 16:12 19:57 06:21 WBC RBC Hgb Hct MCV MCH MCHC RDW Plt Count MPV Immature Gran % (Auto) Neut % (Auto) Lymph % (Auto) Ritchie % (Auto) Eos % (Auto) Baso % (Auto) Lymph # (Auto) Ritchie # (Auto) Eos # (Auto) Baso # (Auto) Abs Immat Gran (auto) Absolute Neuts (auto) Absolute Nucleated RBC Nucleated RBC % (auto) Sodium 122 L Potassium 4.3 Chloride 97 Carbon Dioxide 13 L Anion Gap 16 BUN 74 H Creatinine 2.35 H Estim Creat Clear Calc 37.9 Estimated GFR 28 POC Glucose 97 92 Random Glucose 96 Lactic Acid Calcium 7.6 L Phosphorus 4.5 Magnesium 1.9 Troponin I High Sens Albumin 1.9 L Crossmatch 07/24/22 07/24/22 07/24/22 08:46 09:46 10:20 WBC RBC Hgb Hct MCV MCH MCHC RDW Plt Count MPV Immature Gran % (Auto) Neut % (Auto) Lymph % (Auto) Ritchie % (Auto) Eos % (Auto) Baso % (Auto) Lymph # (Auto) Ritchie # (Auto) Eos # (Auto) Baso # (Auto) Abs Immat Gran (auto) Absolute Neuts (auto) Absolute Nucleated RBC Nucleated RBC % (auto) Sodium Potassium Chloride Carbon Dioxide Anion Gap BUN Creatinine Estim Creat Clear Calc Estimated GFR POC Glucose 66 65 58 L* Random Glucose Lactic Acid Calcium Phosphorus Magnesium Troponin I High Sens Albumin Crossmatch 07/24/22 07/24/22 07/24/22 10:34 11:08 11:08 WBC RBC Hgb Hct MCV MCH MCHC RDW Plt Count MPV Immature Gran % (Auto) Neut % (Auto) Lymph % (Auto) Ritchie % (Auto) Eos % (Auto) Baso % (Auto) Lymph # (Auto) Ritchie # (Auto) Eos # (Auto) Baso # (Auto) Abs Immat Gran (auto) Absolute Neuts (auto) Absolute Nucleated RBC Nucleated RBC % (auto) Sodium Potassium Chloride Carbon Dioxide Anion Gap BUN Creatinine Estim Creat Clear Calc Estimated GFR POC Glucose 83 Random Glucose Lactic Acid 13.6 H* Calcium Phosphorus Magnesium Troponin I High Sens 107.2 H* D Albumin Crossmatch 07/24/22 07/24/22 07/24/22 11:11 11:42 12:37 WBC RBC Hgb Hct MCV MCH MCHC RDW Plt Count MPV Immature Gran % (Auto) Neut % (Auto) Lymph % (Auto) Ritchie % (Auto) Eos % (Auto) Baso % (Auto) Lymph # (Auto) Ritchie # (Auto) Eos # (Auto) Baso # (Auto) Abs Immat Gran (auto) Absolute Neuts (auto) Absolute Nucleated RBC Nucleated RBC % (auto) Sodium Potassium Chloride Carbon Dioxide Anion Gap BUN Creatinine Estim Creat Clear Calc Estimated GFR POC Glucose 93 79 85 Random Glucose Lactic Acid Calcium Phosphorus Magnesium Troponin I High Sens Albumin Crossmatch 07/24/22 07/24/22 07/24/22 13:17 15:05 15:39 WBC 25.1 H RBC 1.08 L D Hgb 3.5 L* D Hct 11.2 L* D MCV 103.7 H MCH 32.4 MCHC 31.3 RDW 18.0 H Plt Count 87 L D MPV 10.7 Immature Gran % (Auto) 3.0 H Neut % (Auto) 89.5 H Lymph % (Auto) 3.6 L Ritchie % (Auto) 3.8 Eos % (Auto) 0.0 Baso % (Auto) 0.1 Lymph # (Auto) 0.9 L Ritchie # (Auto) 1.0 Eos # (Auto) 0.0 Baso # (Auto) 0.0 Abs Immat Gran (auto) 0.75 H Absolute Neuts (auto) 22.4 H Absolute Nucleated RBC 0.070 H Nucleated RBC % (auto) 0.3 H Sodium Potassium Chloride Carbon Dioxide Anion Gap BUN Creatinine Estim Creat Clear Calc Estimated GFR POC Glucose 79 Random Glucose Lactic Acid Calcium Phosphorus Magnesium Troponin I High Sens Albumin Crossmatch See Detail Microbiology Microbiology Results: Microbiology 07/11/22 06:35 Blood - Arterial Line Blood Culture - Final No growth after 5 days. 07/11/22 06:35 Blood - Arterial Line Blood Culture - Final No growth after 5 days. 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
[2022-07-24 16:20] LABS: Troponin-I High Sensitivity 98.7 ng/L (<3.5-35.0)
[2022-07-24 16:38] LABS: Alanine Aminotransferase 234 U/L (0-40); Albumin Level 1.6 g/dL (3.5-5.0); Alkaline Phosphatase 97 U/L (39-117); Anion Gap 27 (12-20); Aspartate Amino Transferase 355 U/L (5-37); Bilirubin Total 0.4 mg/dL (0.0-1.0); Blood Urea Nitrogen 75 mg/dL (9-16); Calcium 7.9 mg/dL (8.4-10.2); Carbon Dioxide 11 mmol/L (22-29); Chloride 96 mmol/L (96-108); Creatinine Clr Calc Pharmacy 35.7; Estimated Glomerular Filt Rate 26; Glucose Random 132 mg/dL (60-115); Potassium 4.7 mmol/L (3.3-5.1); Sodium 129 mmol/L (135-145); Total Protein 3.7 g/dL (6.5-8.0)
[2022-07-24 16:39] LABS: Lactic Acid 19.8 mmol/L (0.5-2.0)
[2022-07-24 16:42] LABS: Glucose, Whole Blood 66 mg/dL (60-115)
[2022-07-24 16:42] LABS: Glucose, Whole Blood 165 mg/dL (60-115)
[2022-07-24 17:02] LABS: SLIDE REVIEW VERIFIED
[2022-07-24 17:08] LABS: INTERNATIONAL NORM RATIO 3.7 (0.9-1.1); Prothrombin Time 45.3 SEC (10.0-13.1)
--- NOTE | 2022-07-24 17:45 | PM.GICN ---
History of Present Illness Data of Consult Service Date: 07/24/22 Requesting physician: Bakari Pierce Primary Care Provider: Lamont Chris MD HPI Reason for consult: Upper GI Bleeding Urgent GI consult requested by Dr Peirce for this 67 YM with diabetes mellitus, ESRD on hemodialysis, protein calorie malnutrition, coronary artery disease status post CABG, ischemic cardiomyopathy with EF of 40-45%, paroxysmal AFib, status post AICD, osteomyelitis with stage IV sacral decubitus ulcer, discoid lupus, and diverting colostomy for acute UGIB with hemorrhagic shock. Pt was admitted on 07/11/2022 with worsening osteomyelitis with sacral decubitus ulcer and is being treated with IV antibiotics.? Patient developed sudden PEA cardiac arrest today at 1 pm. Code was called and pt was resuscitated, intubated during the CPR and transferred to ICU. Patient woken up after the CPR and required sedative drips.? Labs revealed?WBC 25.5, H&H of 3.5 and 11.2 (decreased from 8.1 & 25.5 on 09/16/21), platelets 87 (decreased from 311 on 07/17/22) INR 3.7, BUN 75, creatinine 2.49, Lactic acid 13.6 and increased to 19.8 Troponin 107 - 98.7 History obtained from patient's daughter who was at the bedside. She denied past hx of PUD or GI bleeding. She reported that pt complained of some abdominal pain over the past few days. Pt was transfused 3 U PRBC, 1 U of platelets and FFP Repeat H & H is 7.7 & 24[address] SCAN SHOWED: Small bilateral pleural effusions with multiple rib fractures as described above. ?Anasarca and diffuse fat streaking within the mesentery and retroperitoneal fat as well. ?Cholelithiasis without evidence of acute cholecystitis. ?Poorly evaluated spleen and splenic laceration is not excluded. Ultrasound would be of help in further evaluation of this. ?Small amount of free fluid within the abdomen and pelvis. ?Old granulomatous disease. ?6 mm right lower lobe nodule. Review of Systems Review of Systems: Yes unobtainable due to endotracheal tube PMFSH Past Medical History Medical History (Updated 07/24/22 @ 17:15 by Bakari Pierce MD) CAD (coronary artery disease) Chronic systolic heart failure Diabetic nephropathy Discoid lupus erythematosus Emesis End stage renal disease ESRD (end stage renal disease) Essential tremor HLD (hyperlipidemia) Osteomyelitis of sacrum Protein deficiency Stage IV pressure ulcer of sacral region Type 2 diabetes mellitus with hyperglycemia Family History Family History Sister Type 1 diabetes Father Type 1 diabetes Father CAD (coronary artery disease) Mother Stroke Ovarian cancer Family history: reviewed and not pertinent Surgical History Surgical History S/P CABG (coronary artery bypass graft) Social History Social History Housing: Other Housing Other:: Short term rehab Alcohol intake: never Patient Tobacco Use Status: Former Tobacco user Advance Directives Date on File: 07/25/22 service: No Current occupational status: retired [employer] Allergies Allergy/AdvReac Type Severity Reaction Status Date / Time sulfamethoxazole Allergy Hives Verified 07/11/22 05:49 [From Bactrim] trimethoprim [From Bactrim] Allergy Hives Verified 07/11/22 05:49 Active Medications: Current Medications Amiodarone HCl (Amiodarone Hcl 200 Mg Tablet) 400 mg PO BID [facility] Stop: 07/30/22 21:01 Last Admin: 07/24/22 12:02 Dose: 400 mg Amiodarone HCl (Amiodarone Hcl 200 Mg Tablet) 200 mg PO DAILY [facility] Chlorhexidine Gluconate (Chlorhexidine Gluc Oral Rinse 15 Ml Mouthwash) 15 ml BUCCAL TID [facility] Last Admin: 07/24/22 17:28 Dose: Not Given Cholestyramine Resin (Cholestyramine (With Sugar) 4 Gm Powd.Pack) 4 gm PO BIDWM [facility] Last Admin: 07/24/22 09:59 Dose: 4 gm Dextrose (Dextrose 50 % 25 Gm/50 Ml Vial) 25 gm IVPUSH Q15M PRN; Protocol PRN Reason: per Hypoglycemia Standing Ord. Last Admin: 07/24/22 12:44 Dose: 25 gm Famotidine (Famotidine/Pf 20 Mg/2 Ml Vial) 20 mg IVPUSH DAILY [facility] Glucose (Glucose Gel 15 Gm Gel..Gram.) 15 gm PO Q15M PRN; Protocol PRN Reason: per Hypoglycemia Standing Ord. Last Admin: 07/24/22 10:23 Dose: 15 gm Meropenem 500 mg/ Sodium (Chloride) 50 mls @ 100 mls/hr IV Q24H [facility] Stop: 08/23/22 23:29 Last Infusion: 07/24/22 01:01 Dose: Infused Propofol (Diprivan) 1,000 mg in 100 mls @ 0 mls/hr IVCONT .Q0M [facility]; Protocol Last Admin: 07/24/22 14:00 Dose: 30 mcg/kg/min, 17.28 mls/hr Fentanyl (Sublimaze/Ns) 1,000 mcg in 100 mls @ 0 mls/hr IVCONT .Q0M [facility]; Protocol Last Admin: 07/24/22 14:21 Dose: 50 mcg/hr, 5 mls/hr Sodium Bicarbonate 150 meq/ (Dextrose) 1,000 mls @ 100 mls/hr IV .Q10H [facility] Last Admin: 07/24/22 16:00 Dose: 100 mls/hr Pantoprazole Sodium 80 mg/ (Sodium Chloride) 100 mls @ 10 mls/hr IV .Q10H [facility] Norepinephrine Bitartrate (Levophed) 8 mg in 250 mls @ 0 mls/hr IVCONT .Q0M [facility]; Protocol Phytonadione 10 mg/ Sodium (Chloride) 51 mls @ 51 mls/hr IV ONCE ONE Stop: 07/24/22 18:24 Insulin Human Lispro (Insulin Lispro 100 Unit/Ml 3 Ml Vial) 0 unit SUBCUT QIDACHS [facility]; Protocol Last Admin: 07/24/22 17:31 Dose: Not Given Linezolid (Linezolid 600 Mg Tablet) 600 mg PO Q12H [facility] Stop: 08/09/22 11:01 Last Admin: 07/24/22 14:13 Dose: Not Given Naloxone HCl (Naloxone Hcl 0.4 Mg/Ml Vial) 0.2 mg IVPUSH Q2M PRN PRN Reason: Excessive sedation or RR < 8 Ondansetron HCl (Ondansetron Hcl 4 Mg/2 Ml Vial) 4 mg IVPUSH Q8H PRN PRN Reason: Nausea and Vomiting Last Admin: 07/24/22 05:10 Dose: 4 mg Pharmacy Consult (Consult Rx Perform Med Rec) 1 each MISCELLANE ONCE PRN PRN Reason: Consult order Primidone (Primidone 50 Mg Tablet) 50 mg PO BEDTIME [facility] Last Admin: 07/23/22 22:29 Dose: 50 mg Prochlorperazine Edisylate (Prochlorperazine Edisylate 10 Mg/2 Ml Vial) 5 mg IV Q4H PRN PRN Reason: N/V UNRELIEVED BY LUIS DANIEL Last Admin: 07/24/22 09:46 Dose: 5 mg Sodium Chloride (0.9 % Sodium Chloride Flush 3 Ml Syringe) 3 ml IVFLUSH [facility] Last Admin: 07/24/22 16:44 Dose: 3 ml Home Medications Medication Instructions Recorded Confirmed Last Taken Type Lactobacillus acidophilus 1 cap PO DAILY 07/11/22 07/11/22 Unknown History (Acidophilus capsule) apixaban 5 mg tablet (Eliquis) 1 tab PO BID 07/11/22 07/11/22 Unknown History ascorbic acid (vitamin C) 500 mg 500 mg PO BID 07/11/22 07/11/22 Unknown History tablet aspirin 81 mg tablet,delayed 81 mg PO DAILY 07/11/22 07/11/22 Unknown History release atorvastatin 80 mg tablet 80 mg PO BEDTIME 07/11/22 07/11/22 Unknown History calcium carbonate-vitamin D3 600 1 tab PO DAILY 07/11/22 07/11/22 Unknown History mg-125 unit tablet cholestyramine (with sugar) 4 gram 4 g PO BIDWM 07/11/22 07/11/22 Unknown History oral powder collagenase clostridium histo. 250 1 appl topical BID 07/11/22 07/11/22 Unknown History unit/gram topical ointment (Santyl) diphenhydramine HCl 25 mg capsule 25 mg PO TID PRN Itching 07/11/22 07/11/22 Unknown History (Benadryl) docusate sodium 100 mg capsule 100 mg PO DAILY 07/11/22 07/11/22 Unknown History epoetin ciara 10,000 unit/mL 10,000 unit IV TUTHSA 07/11/22 07/11/22 Unknown History injection solution ezetimibe 10 mg tablet 10 mg PO DAILY 07/11/22 07/11/22 Unknown History fentanyl 12 mcg/hr transdermal 1 patch transdermal Q72H 07/11/22 07/11/22 Unknown History patch fluticasone propionate 50 1 spray intranasal DAILY 07/11/22 07/11/22 Unknown History mcg/actuation nasal spray,suspension hydromorphone 2 mg tablet 2 mg PO Q12H PRN Pain 07/11/22 07/11/22 Unknown History insulin glargine 100 unit/mL 25 unit subcut DAILY 07/11/22 07/11/22 Unknown History subcutaneous solution insulin lispro 100 unit/mL 1 sliding scale dose subcut QIDACHS 07/11/22 07/11/22 Unknown History subcutaneous pen melatonin 3 mg tablet 3 mg PO BEDTIME 07/11/22 07/11/22 Unknown History metoprolol succinate 25 mg 25 mg PO DAILY 07/11/22 07/11/22 Unknown History tablet,extended release 24 hr midodrine 10 mg tablet 10 mg PO TUTHSA PRN LOW BLOOD 07/11/22 07/11/22 Unknown History PRESSURE midodrine 5 mg tablet 5 mg PO TID@0900,1200,1800 07/11/22 07/11/22 Unknown History midodrine 5 mg tablet 5 mg PO TUTHSA@0900 07/11/22 07/11/22 Unknown History nitroglycerin 0.4 mg sublingual 0.4 mg sublingual Q5M PRN Chest 07/11/22 07/11/22 Unknown History tablet (Nitrostat) Pain oxycodone 5 mg tablet 5 mg PO Q6H PRN Pain 07/11/22 07/11/22 Unknown History primidone 50 mg tablet 50 mg PO BEDTIME 07/11/22 07/11/22 Unknown History sennosides 8.6 mg tablet 17.2 mg PO DAILY 07/11/22 07/11/22 Unknown History vitamin B complex and vitamin C 1 cap PO DAILY 07/11/22 07/11/22 Unknown History no.20-folic acid 1 mg capsule Physical Exam Vital Signs: Vital Signs: Last Vital Signs Temp 89.2 F L 07/24/22 17:37 Pulse 108 H 07/24/22 17:37 Resp 23 H 07/24/22 17:37 BP 143/83 H 07/24/22 17:37 Pulse Ox 100 07/24/22 17:00 O2 Del Method 07/24/22 17:00 O2 Flow Rate 2 07/24/22 12:13 FiO2 60 07/24/22 17:00 BMI result Body Mass Index 25.0 Const: General: ill appearing and other (ET tube in place) Nutritional Appearance: overweight Limitations: other limitations (intubated and sedated) HEENT: Head: Yes normal to inspection Eyes: Sclerae: sclerae normal Neck: Neck: Yes normal visual inspection Chest: Chest palpation & inspection: normal inspection of the chest Resp: Effort & Inspection: normal respiratory effort Auscultation: clear to auscultation bilaterally Cardio: Palpation: normal PMI Rate: regular rate Rhythm: regular rhythm Heart sounds: S1 normal heart sound present, S2 normal heart sound present and no murmurs GI: Inspection: Yes other (diverting ostomy in LUQ containing a small amout of serosanguineous fluid ) Palpation (GI): Soft to palpation, nontender and No hepatosplenomegaly present Auscultation: normal bowel sounds Rectal Exam - Male: Yes deferred Skin: General skin exam: no rashes or lesions noted Results Labs CBC & Chem 7: 07/25/22 15:17 07/25/22 04:35 Labs: Short CBC 07/24/22 Range/Units 15:39 WBC 25.1 H (4.8-10.8) X10*3/uL Hgb 3.5 L* D (14.0-18.0) g/dl Hct 11.2 L* D (42.0-52.0) % Plt Count 87 L D (160-400) X10*3/uL BMP 07/24/22 07/24/22 06:21 15:39 Sodium 122 L 129 L Potassium 4.3 4.7 Chloride 97 96 Carbon Dioxide 13 L 11 L BUN 74 H 75 H Creatinine 2.35 H 2.49 H Calcium 7.6 L 7.9 L Liver Function 07/24/22 07/24/22 Range/Units 06:21 15:39 Total Bilirubin 0.4 (0.0-1.0) mg/dL AST 355 H (5-37) U/L ALT 234 H (0-40) U/L Alkaline Phosphatase 97 (39-117) U/L Albumin 1.9 L 1.6 L (3.5-5.0) g/dL Microbiology Microbiology Results: Microbiology 07/11/22 06:35 Blood - Arterial Line Blood Culture - Final No growth after 5 days. 07/11/22 06:35 Blood - Arterial Line Blood Culture - Final No growth after 5 days. Assessment and Plan (1) Upper GI bleed: Status: Acute (2) Acute blood loss anemia: Status: Acute Plan 67 YM admitted with osteomyelitis with stage IV sacral decubitus with diverting colostomy. Hospital course complicated by sudden PEA cardiac arrest today at 1 pm due to acute UGIB with hemorrhagic shock. OG tube was inserted and revealed aspirate containing dark blood. Labs revealed?WBC 25.5, H&H of 3.5 and 11.2 (decreased from 8.1 & 25.5 on 09/16/21), platelets 87 (decreased from 311 on 07/17/22) INR 3.7, BUN 75, creatinine 2.49, Lactic acid 13.6 and increased to 19.8 Pt was transfused 3 U PRBC, 1 U of platelets and FFP Repeat H & H is 7.7 & 24.3 Gastric lavage was performed with 500 cc of normal saline and brown fluid aspirated without fresh blood or clots indicating bleeding has stopped. Most likely source of UGIB is PUD or stress gastritis. Varices not likely since pt does not have known liver disease. Elevated LFTs are likely due to hepatic ischemia resulting from cardiac arrest. RECOMMENDATIONS: 1. Monitor H & H Q 4-6 hrly overnight and transfuse Prn. 2. Continue IV PPI infusion 3. Repeat INR in the am 4. EGD tentatively planned in the am - if pt is stable to undergo the procedure. Procedures Date of Service Date of Service: 07/24/22
[2022-07-24 17:46] LABS: Reflex Lactate? Lactic Acid Added
[2022-07-24 18:07] LABS: Venous Blood Gas Refer to POC result
[2022-07-24 18:08] LABS: Basophils Absolute Auto 0.1 X10*3/uL (0.0-0.2); Basophils Percent Auto 0.2 % (0-2); Eosinophils Percent Auto 0.1 % (0-4); Hematocrit 24.3 % (42.0-52.0); Hemoglobin 7.7 g/dl (14.0-18.0); Imm Gran Abs Auto 0.43 X10*3/uL (0.00-0.03); Imm Gran Pct Auto 1.4 % (0.0-0.4); Lymphocytes Absolute Auto 0.4 X10*3/uL (1.2-4.9); Lymphocytes Percent Auto 1.2 % (20-40); MANUAL DIFF FLAG SCAN; Mean Corpuscular HGB Conc 31.7 g/dl (31.0-36.0); Mean Corpuscular Hemoglobin 31.2 pg (27.0-33.0); Mean Corpuscular Volume 98.4 fL (80.0-98.0); Mean Platelet Volume 11.3 fL (9.4-12.4); Monocytes Absolute Auto 1.4 X10*3/uL (0.1-1.2); Monocytes Percent Auto 4.5 % (2-11); NRBC Pct Auto 0.2 /100WBC (0.0-0.2); Neutrophils Absolute Auto 28.9 x10*3/uL (2.0-8.3); Neutrophils Percent Auto 92.6 % (45-73); Red Blood Count 2.47 X10*6/uL (4.60-5.80); Red Cell Distribution Width 15.3 % (11.0-16.0); SCAN SMEAR FLAG 1
[2022-07-24 18:15] LABS: Platelet Count 72 X10*3/uL (160-400)
[2022-07-24] MEDS: Phytonadione (Vit K1) 10 MG in 0.9 % Sodium Chloride 50 ML 51 MG IV (18:15)
[2022-07-24 18:17] LABS: White Blood Count 31.2 X10*3/uL (4.8-10.8)
[2022-07-24 18:18] LABS: Venous Blood Gas Refer to POC result
[2022-07-24 18:21] LABS: VBG Base Excess -22.9 mmol/L; VBG HCO3 6 mmol/L (22-26); VBG pCO2 24 mmHg; VBG pH 7.01 (7.32-7.43); VBG pO2 66 mmHg
[2022-07-24] MEDS: Pantoprazole Sodium 80 MG in 0.9 % Sodium Chloride 80 ML 10 MG IV (18:23)
[2022-07-24 18:49] LABS: ~Lactic Acid-LAB USE ONLY 16.7 mmol/L (0.5-2.0)
[2022-07-24 18:58] LABS: VBG Base Excess -19.2 mmol/L; VBG HCO3 8 mmol/L (22-26); VBG pCO2 27 mmHg; VBG pH 7.08 (7.32-7.43); VBG pO2 138 mmHg
[2022-07-24] MEDS: Sodium Bicarbonate 8.4% 50 MEQ/50 ML VIAL IVPUSH ×2 (19:01→22:07)
[2022-07-24 19:16] LABS: VBG Base Excess -21.2 mmol/L; VBG pCO2 23 mmHg; VBG pH 7.05 (7.32-7.43); VBG pO2 67 mmHg
[2022-07-24 19:17] LABS: VBG HCO3 6 mmol/L (22-26); Venous Blood Gas Refer to POC result
--- NOTE | 2022-07-24 19:34 | PC.NURSE ---
UI LEAD DEVELOPER TURNED CODE BLUE AT 1318 - SEE CODE SHEET TRANSPORTED TO ICU INTUBATED - AC 18/450/5/100% PROPOFOL AND FENTANYL GTT STARTED - SEE EMAR LEVOPHED GTT STARTED AND TITRATED BY MD - SEE EMAR PER MD: CLAVES ADDED TO DIALYSIS PORT TO BE ABLE TO GIVE MEDICATIONS DUE TO LACK OF OBTAINABLE ACCESS EPI 1MG IVP X 3 FROM CODE CART ADMINISTERED SODIUM BICARB IVPS AND GTT STARTED - SEE EMAR OFF UNIT TO CT FOR SCAN OF CHEST AND ABDOMEN OG TUBE PLACED BY MD USING GLIDASCOPE - CXR TO CONFIRM PLACEMENT POC 66 - AMP D50 ADMINISTERED AT 1551 LR BOLUS GIVEN ORAL CORE TEMP AND RECTAL TEMP OBTAINED TO COMPARE - 89.0-99.0, MD AWARE. NO BEAR HUGGER AT THIS TIME PER MD BLOOD PRODUCTS: 3 RBC AND 3 PLASMA ADMINISTERED VITAMIN K ADMINISTERED PROTONIX GTT STARTED - SEE EMAR SURGEON BEDSIDE TO ASSESS PATIENT - OG TUBE LAVAGED BY SURGEON ARANDA BAG CHANGED, NO URINE NOTED BY THIS RN SINCE CODE BLUE - MD AWARE OSTOMY BAG LEAKING STOOL (KENNY IN COLOR) AND BLOOD, CHANGED, SKIN PREP UTILIZED. STOMA PINK, ENGORGED - MD AND SURGEON AWARE BATHED, PICTURED OBTAINED TO COCCYX, AND ALL EXTREMITIES COCCYX WET TO DRY DRESSING CHANGED, PINK FOAMS APPLIED TO SKIN TEARS, ALL EXTREMITIES WRAPPED WITH WOODROW PADS D/T WEEPING SKIN FAMILY BEDSIDE AND UPDATED BY MD AND RN
[2022-07-24 20:05] LABS: Reflex Lactate? 2 Y
[2022-07-24 20:47] LABS: MANUAL DIFF FLAG NO
[2022-07-24 20:53] LABS: Basophils Absolute Auto 0.1 X10*3/uL (0.0-0.2); Basophils Percent Auto 0.2 % (0-2); Eosinophils Percent Auto 0.1 % (0-4); Hematocrit 23.8 % (42.0-52.0); Hemoglobin 7.7 g/dl (14.0-18.0); Imm Gran Abs Auto 0.67 X10*3/uL (0.00-0.03); Imm Gran Pct Auto 1.9 % (0.0-0.4); Lymphocytes Absolute Auto 0.3 X10*3/uL (1.2-4.9); Lymphocytes Percent Auto 0.9 % (20-40); Mean Corpuscular HGB Conc 32.4 g/dl (31.0-36.0); Mean Corpuscular Hemoglobin 31.2 pg (27.0-33.0); Mean Corpuscular Volume 96.4 fL (80.0-98.0); Mean Platelet Volume 10.9 fL (9.4-12.4); Monocytes Absolute Auto 1.5 X10*3/uL (0.1-1.2); Monocytes Percent Auto 4.2 % (2-11); NRBC Pct Auto 0.3 /100WBC (0.0-0.2); Neutrophils Absolute Auto 33.5 x10*3/uL (2.0-8.3); Neutrophils Percent Auto 92.7 % (45-73); Red Blood Count 2.47 X10*6/uL (4.60-5.80); Red Cell Distribution Width 15.5 % (11.0-16.0); SCAN SMEAR FLAG 1
[2022-07-24 20:56] LABS: Platelet Count 63 X10*3/uL (160-400)
[2022-07-24 20:57] LABS: White Blood Count 36.1 X10*3/uL (4.8-10.8)
[2022-07-24 20:58] LABS: INTERNATIONAL NORM RATIO 2.6 (0.9-1.1); Prothrombin Time 31.3 SEC (10.0-13.1)
[2022-07-24 21:02] LABS: Glucose, Whole Blood 141 mg/dL (60-115)
[2022-07-24 21:19] LABS: Anion Gap 34 (12-20); Blood Urea Nitrogen 76 mg/dL (9-16); Calcium 7.9 mg/dL (8.4-10.2); Carbon Dioxide 9 mmol/L (22-29); Chloride 93 mmol/L (96-108); Creatinine Clr Calc Pharmacy 34.9; Estimated Glomerular Filt Rate 25; Glucose Random 194 mg/dL (60-115); Potassium 4.2 mmol/L (3.3-5.1); Sodium 132 mmol/L (135-145); ~Lactic Acid-LAB USE ONLY 16.1 mmol/L (0.5-2.0)
[2022-07-24] MEDS: Chlorhexidine Gluc Oral Rinse 15 ML MOUTHWASH BUCCAL (21:40)
[2022-07-24] MEDS: Albumin Human 25 % 100 ML IV (23:18)
[2022-07-25] VITALS (53 sets, daily range): BP systolic 75–153; BP diastolic 48–89; PULSE 88–140; RESP 10–25; TEMP 33.1–36.3; O2SAT 95–100
[2022-07-25 00:47] LABS: Hematocrit 22.1 % (42.0-52.0); Hemoglobin 7.3 g/dl (14.0-18.0); Mean Corpuscular Hemoglobin 31.3 pg (27.0-33.0); Mean Corpuscular Volume 94.8 fL (80.0-98.0); Mean Platelet Volume 11.3 fL (9.4-12.4); NRBC Pct Auto 0.3 /100WBC (0.0-0.2); Red Blood Count 2.33 X10*6/uL (4.60-5.80)
[2022-07-25 01:00] LABS: Platelet Count 57 X10*3/uL (160-400)
[2022-07-25 01:02] LABS: White Blood Count 38.8 X10*3/uL (4.8-10.8)
[2022-07-25 01:08] LABS: Anion Gap 35 (12-20); Blood Urea Nitrogen 74 mg/dL (9-16); Chloride 93 mmol/L (96-108); Estimated Glomerular Filt Rate 25; Glucose Random 204 mg/dL (60-115); Potassium 4.3 mmol/L (3.3-5.1); Sodium 134 mmol/L (135-145)
[2022-07-25 01:13] LABS: Lactic Acid 15.6 mmol/L (0.5-2.0)
[2022-07-25 01:14] LABS: Carbon Dioxide 10 mmol/L (22-29)
[2022-07-25] MEDS: Albumin Human 25 % 100 ML IV (01:20)
[2022-07-25] MEDS: Sodium Bicarbonate 8.4% 150 MEQ in Dextrose 5 % 850 ML 100 MEQ IV ×2 (01:21→10:52)
[2022-07-25 02:39] LABS: Reflex Lactate? Lactic Acid Added
[2022-07-25 03:52] LABS: ~Lactic Acid-LAB USE ONLY 15.9 mmol/L (0.5-2.0)
[2022-07-25] MEDS: Pantoprazole Sodium 80 MG in 0.9 % Sodium Chloride 80 ML 10 MG IV ×3 (04:36→20:52)
[2022-07-25] MEDS: fentaNYL citrate/NS 1,000 MCG/100 ML PLAST..BAG 5 MCG IVCONT ×2 (04:37→23:51)
[2022-07-25] MEDS: Calcium Gluconate/NaCl,Iso-Osm 1 GM/50 ML PLAST..BAG IV (04:40)
[2022-07-25 04:43] LABS: Mean Corpuscular HGB Conc 33.7 g/dl (31.0-36.0); Mean Corpuscular Hemoglobin 31.4 pg (27.0-33.0); Mean Corpuscular Volume 93.2 fL (80.0-98.0); Mean Platelet Volume 11.7 fL (9.4-12.4); NRBC Pct Auto 0.4 /100WBC (0.0-0.2); Red Cell Distribution Width 16.6 % (11.0-16.0)
[2022-07-25 04:49] LABS: INTERNATIONAL NORM RATIO 2.6 (0.9-1.1); Prothrombin Time 31.1 SEC (10.0-13.1)
[2022-07-25 04:57] LABS: Platelet Count 64 X10*3/uL (160-400)
[2022-07-25 05:00] LABS: White Blood Count 35.7 X10*3/uL (4.8-10.8)
[2022-07-25 05:01] LABS: Hematocrit 20.5 % (42.0-52.0); Hemoglobin 6.9 g/dl (14.0-18.0)
--- NOTE | 2022-07-25 05:04 | PC.NURSE ---
ASSUMED CARE OF PT AT 1900. PT UNRESPONSIVE ON AC VENT SETTINGS. FIO2 100% ON 30% FIO2. BP STABLE ON LEVOPHED AT 0.16 MCG. PROPOFOL/FENTANYL FOR VENT CONTROL. BICARB GTT AT 100 ML/HR. I AMP BICARB IVP GIVEN S/P VBG RESULT OF PH 7.01, BICARB 6. PT GIVEN 2 UNITS OF PLATELETS. LABS REDRAWN AT 2100. WBC 36.1, BICARB 9 AND LACTIC 16.1. JINNY TEACHER DRAMATICS AWARE. PT GIVEN 2 GMS OF VANCO IV. VBG'S REPEATED QL1929.PH 7.10, BICARB 7.16. PT GIVEN ANOTHER AMP OF BICARB 50 ML. LABS REPEATED AT 0030 AND WBC CRITICAL 38.8, HGB/HCT 7.3/22.1 PLT 57. PT TO RECEIVE PLATLET TRANSFUSION. PT WAS STABLE UNTIL 0425 WHEN HE SUDDENLY DROPPED HIS HEART RATE FROM 120'S TO 60'S AND JINNY TEACHER DRAMATICS SUMMONED TO ROOM. PT RECEIVED 2 AMPS OF BICARB AND CALCIUM GLUCONATE 1 GM. SBP DOWN TO 50'S AND LEVO INCREMENTALY INCREASED TO 1 MCG. HEART RATE AND BP RESPONDED TO THOSE INTERVENTIONS. STAT LABS DRAWN. VBG PH STILL LOW 7.228 AND BICARB 11.42. TEACHER DRAMATICS AWARE. BP HOLDING STABLE AND LEVO DEANED DOWN TO 0.3 MCG. HEART RATE HOLDING 120-130'S AFIB.
[2022-07-25 05:11] LABS: Alanine Aminotransferase 418 U/L (0-40); Albumin Level 2.5 g/dL (3.5-5.0); Alkaline Phosphatase 105 U/L (39-117); Anion Gap 33 (12-20); Aspartate Amino Transferase 792 U/L (5-37); Bilirubin Total 1.5 mg/dL (0.0-1.0); Blood Urea Nitrogen 76 mg/dL (9-16); Calcium 7.8 mg/dL (8.4-10.2); Carbon Dioxide 14 mmol/L (22-29); Chloride 94 mmol/L (96-108); Creatinine Clr Calc Pharmacy 35.3; Estimated Glomerular Filt Rate 26; Glucose Random 205 mg/dL (60-115); Magnesium 1.9 mg/dL (1.6-2.6); Phosphorus 6.2 mg/dL (2.7-4.5); Potassium 4.3 mmol/L (3.3-5.1); Sodium 137 mmol/L (135-145); Total Protein 4.6 g/dL (6.5-8.0)
[2022-07-25 05:25] LABS: Reflex Lactate? 2 Y
[2022-07-25 05:29] LABS: Erythrocyte Sedimentation Rate 13 MM/HR (0-15)
[2022-07-25 05:51] LABS: HBS Num1 4.27 mIU/mL (0-7.99); HBc Num1 0.35 S/CO (0.00-0.79); Hepatitis B Core Antibody Nonreactive (Nonreactive); Hepatitis B Surface Antigen Negative (Negative); ~HepC Num1 0.13 S/CO (0.00-0.79); ~Hepatitis B Surface Antibody NONREACTIVE (Nonreactive); ~Hepatitis C Antibody Nonreactive (Nonreactive)
[2022-07-25] MEDS: propofoL 1,000 MG/100 ML VIAL 17.28 MG IVCONT (05:52)
[2022-07-25 06:16] LABS: ~Lactic Acid-LAB USE ONLY 15.5 mmol/L (0.5-2.0)
--- NOTE | 2022-07-25 07:00 | CA_ITS ---
Transthoracic Echocardiogram Patient (Last, First, Middle): Zechariah Mccurdy, Gender: Male Date of : 1955 Age: 67 Procedure Date: 07/25/2022 Procedure Type: Transthoracic Echocardiogram Location: ICU Height: 195.58 cm Weight: 95.71 kg BSA: 2.29 m2 Heart Rate: bpm BP: 136 / 81 mmHg Market Superintendent: SB Referring MD: Bakari Pierce MD Symptoms: s/p cardiac arrest Study Quality: Good Conclusions: - 1. Mildly dilated left ventricle with significantly reduced LV ejection fraction of 10-15% with regional wall motion abnormality consistent with ischemic cardiomyopathy 2. Mildly dilated right ventricle with moderate RV systolic dysfunction 3. Mildly dilated left atrium 4. Mild mitral regurgitation 5. Moderate tricuspid regurgitation with mildly elevated right ventricular systolic pressure is significantly elevated right atrial pressures 6. No gross pericardial effusion Findings Left Ventricle Mildly increased left ventricular cavity size. There is normal left ventricular wall thickness. The left ventricular systolic function is severely decreased. The visually estimated ejection fraction is between 10 15%. Diastolic function is indeterminate on the basis of available data. Wall Motion Rest Echo Findings The anterolateral wall, the basal inferior, basal anterior, mid inferior, basal inferoseptal, and basal anteroseptal segments are hypokinetic. The apical anterior, apical inferior, mid anterior, apical lateral, apical septum, mid inferoseptal, and mid anteroseptal segments are akinetic. The apex segment is dyskinetic. All other scored wall segments showed normal motion. Right Ventricle Mildly increased right ventricular cavity size. There is moderately decreased right ventricular systolic function. There is an ICD wire seen in the right ventricle. Atria The left atrium is mildly dilated. There is no evidence of interatrial shunt. The right atrium is mildly dilated. Aortic Valve There is mild calcification of the aortic valve. There is no aortic valve stenosis. There is no aortic valve regurgitation. Mitral Valve There is mild anterior and posterior mitral leaflet thickening. The posterior mitral leaflet has restricted mobility. There is mild mitral valve regurgitation. There is no mitral valve stenosis. Pulmonic Valve The pulmonic valve is likely normal. There is trace to mild pulmonic valve regurgitation. Tricuspid Valve Normal tricuspid valve structure. There is moderate tricuspid valve regurgitation. Significantly elevated right atrial pressure. Mild pulmonary hypertension is present. Great Vessels All visible segments of the aorta are normal in size. The pulmonary artery was not well visualized. Venous The inferior vena cava is moderately dilated and does not collapse with inspiration. Pericardium/Pleural There is no evidence of pericardial effusion. Prior Study Comparison No prior study available for comparison. Measurements 2D Linear Measurements IVSd: 0.82 0.6-0.9/0.6-1.0 cm LVIDd: 5.88 3.9-5.3/4.2-5.9 cm LVIDd Index: 2.57 2.4-3.2/2.2-3.1 cm/m2 LVIDs: 5.27 2.0-3.6 cm LVPWd: 0.73 0.7-1.1 cm LA Diam: 3.70 2.7-3.8/3.0-4.0 cm LAIDs Index: 1.62 1.5-2.3 cm/m2 LV Mass: 215.67 67-162/88-224 g LV Mass Index: 94.18 43-95/49-115 g/m2 LVOT Diam: 2.50 3.0+(-)1.3 cm 2D Systolic Function EF 4C: 26.00 >55% EF 2C: 0.69 >55% EF BiP: 12.80 >55% Mitral Valve MV Pk E: 0.92 Aortic Valve AoV Pk Fazian: 1.00 AoV Pk Grad: 4.00 LVOT LVOT Pk Faizan: 0.70 LVOT Mn Faizan: 0.47 LVOT VTI: 0.09 LVOT Pk Grad: 2.00 LVOT Mn Grad: 1.00 LVOT Diam: 2.50 LVOT Area: 4.91 Diastolic Function MV Pk E: 0.92 Right Ventricle TAPSE (mm): 10.70 TVS' Faizan: 6.80 Tricuspid Valve TR Pk Faizan: 2.69 TR Pk Grad: 29.00 RA Press: 15.00 RVSP: 44.00 Great Vessels Aorta Sinus of Valsalva: 4.10 2.0-3.5 cm Ao Asc: 3.60 2.1-3.4 cm Pulmonary Valve PV Pk Faizan: 0.83 Peak PV Grad: 3.00 Updated in Other Vendor System with Status of Final Du Castano MD electronically signed on 07/25/2022 3:04:44 PM with status of Final
[2022-07-25 07:27] LABS: Glucose, Whole Blood 203 mg/dL (60-115)
[2022-07-25] MEDS: Insulin Lispro 100 UNIT/ML 3 ML VIAL SUBCUT ×3 (07:39→23:50)
[2022-07-25] MEDS: Chlorhexidine Gluc Oral Rinse 15 ML MOUTHWASH BUCCAL ×3 (07:40→19:25)
[2022-07-25] MEDS: 0.9 % Sodium Chloride Flush 3 ML SYRINGE IVFLUSH ×3 (07:53→23:54)
--- NOTE | 2022-07-25 08:55 | PM.PNGS ---
Subjective Subjective Date of Service: 07/26/22 Interval history: Events of yesterday noted He had been able over the weekend but was found to be in cardiac arrest with PEA yesterday afternoon Had return of any circulation, transferred to the ICU Currently on the ventilator, on pressors Also noted to have anemia OG tube placed apparently had shown Physical Exam Vital Signs: Vital Signs: Last Vital Signs Temp 96.6 F L 07/25/22 08:25 Pulse 125 H 07/25/22 08:25 Resp 16 07/25/22 08:25 BP 108/68 07/25/22 08:25 Pulse Ox 100 07/25/22 08:00 O2 Del Method 07/25/22 08:00 O2 Flow Rate 2 07/24/22 12:13 FiO2 30 07/25/22 08:00 BMI result Body Mass Index 25.0 Const: Other: On ventilator Resp: Other: On ventilator Cardio: Rate: tachycardic GI: Other: Soft, nondistended, no guarding or rebound, with edematous stoma, viable, functioning well, Objective Data Active Medications Chlorhexidine Gluconate (Chlorhexidine Gluc Oral Rinse 15 Ml Mouthwash) 15 ml BUCCAL TID [facility] Last Admin: 07/25/22 07:40 Dose: 15 ml Documented By: LEONEL Cholestyramine Resin (Cholestyramine (With Sugar) 4 Gm Powd.Pack) 4 gm PO BIDWM [facility] Last Admin: 07/25/22 08:33 Dose: Not Given Documented By: LEONEL Non-Admin Reason: Physician Held Med Dextrose (Dextrose 50 % 25 Gm/50 Ml Vial) 25 gm IVPUSH Q15M PRN; Protocol PRN Reason: per Hypoglycemia Standing Ord. Last Admin: 07/24/22 12:44 Dose: 25 gm Documented By: NAYA Glucose (Glucose Gel 15 Gm Gel..Gram.) 15 gm PO Q15M PRN; Protocol PRN Reason: per Hypoglycemia Standing Ord. Last Admin: 07/24/22 10:23 Dose: 15 gm Documented By: NAYA Meropenem 500 mg/ Sodium (Chloride) 50 mls @ 100 mls/hr IV Q24H [facility] Stop: 08/23/22 23:29 Last Infusion: 07/25/22 00:37 Dose: 0 mls/hr Documented By: MELECIO Propofol (Diprivan) 1,000 mg in 100 mls @ 0 mls/hr IVCONT .Q0M YU; Protocol Last Titration: 07/25/22 08:18 Dose: 25 mcg/kg/min, 14.4 mls/hr Documented By: LEONEL Fentanyl (Sublimaze/Ns) 1,000 mcg in 100 mls @ 0 mls/hr IVCONT .Q0M YU; Protocol Last Admin: 07/25/22 04:37 Dose: 50 mcg/hr, 5 mls/hr Documented By: MELECIO Sodium Bicarbonate 150 meq/ (Dextrose) 1,000 mls @ 100 mls/hr IV .Q10H YU Last Admin: 07/25/22 01:21 Dose: 100 mls/hr Documented By: MELECIO Pantoprazole Sodium 80 mg/ (Sodium Chloride) 100 mls @ 10 mls/hr IV .Q10H YU Last Admin: 07/25/22 04:36 Dose: 8 mg/hr, 10 mls/hr Documented By: MELECIO Norepinephrine Bitartrate (Levophed) 8 mg in 250 mls @ 0 mls/hr IVCONT .Q0M YU; Protocol Last Admin: 07/25/22 07:47 Dose: 0.3 mcg/kg/min, 54 mls/hr Documented By: LEONEL Phytonadione 10 mg/ Sodium (Chloride) 51 mls @ 51 mls/hr IV Q1H YU Stop: 07/26/22 10:59 Phytonadione 10 mg/ Sodium (Chloride) 51 mls @ 51 mls/hr IV Q6H YU Stop: 07/25/22 23:59 Insulin Human Lispro (Insulin Lispro 100 Unit/Ml 3 Ml Vial) 0 unit SUBCUT Q6H YU; Protocol Last Admin: 07/25/22 07:39 Dose: 4 unit Documented By: LEONEL Linezolid (Linezolid 600 Mg Tablet) 600 mg PO Q12H [facility] Last Admin: 07/24/22 14:13 Dose: Not Given Documented By: PAULINO-TRACY Non-Admin Reason: Nausea Naloxone HCl (Naloxone Hcl 0.4 Mg/Ml Vial) 0.2 mg IVPUSH Q2M PRN PRN Reason: Excessive sedation or RR < 8 Ondansetron HCl (Ondansetron Hcl 4 Mg/2 Ml Vial) 4 mg IVPUSH Q8H PRN PRN Reason: Nausea and Vomiting Last Admin: 07/24/22 05:10 Dose: 4 mg Documented By: MARANDA Pharmacy Consult (Consult Rx Perform Med Rec) 1 each MISCELLANE ONCE PRN PRN Reason: Consult order Prochlorperazine Edisylate (Prochlorperazine Edisylate 10 Mg/2 Ml Vial) 5 mg IV Q4H PRN PRN Reason: N/V UNRELIEVED BY ZOFRVIN Last Admin: 07/24/22 09:46 Dose: 5 mg Documented By: NAYA Sodium Chloride (0.9 % Sodium Chloride Flush 3 Ml Syringe) 3 ml IVFLUSH [facility] Last Admin: 07/25/22 07:53 Dose: 3 ml Documented By: LEONEL Labs CBC & Chem 7: 07/26/22 05:05 07/26/22 05:05 Labs: Laboratory Results - last 24 hr 07/22/22 07/24/22 07/24/22 13:47 09:46 10:20 MCV MCH MCHC RDW Plt Count MPV Immature Gran % (Auto) Neut % (Auto) Lymph % (Auto) [place] % (Auto) Eos % (Auto) Baso % (Auto) Lymph # (Auto) [place] # (Auto) Eos # (Auto) Baso # (Auto) Abs Immat Gran (auto) Absolute Neuts (auto) Absolute Nucleated RBC Nucleated RBC % (auto) Smear Tech's Comments ESR PT INR VBG pH VBG pCO2 VBG pO2 VBG HCO3 VBG O2 Saturation VBG Base Excess Anion Gap Estim Creat Clear Calc Estimated GFR POC Glucose 65 58 L* Random Glucose Lactic Acid Lactic Acid F/U @ 2Hr Lactic Acid F/U @ 4Hr Calcium Phosphorus Magnesium Total Bilirubin AST ALT Alkaline Phosphatase Troponin I High Sens C-Reactive Protein Total Protein Albumin Hep Bs Antigen Negative Hep Bs Antibody NONREACTIVE Hep B Core Total Ab Nonreactive Hepatitis C Ab (EIA) Nonreactive Blood Type Antibody Screen Crossmatch 07/24/22 07/24/22 07/24/22 10:34 11:08 11:08 MCV MCH MCHC RDW Plt Count MPV Immature Gran % (Auto) Neut % (Auto) Lymph % (Auto) [place] % (Auto) Eos % (Auto) Baso % (Auto) Lymph # (Auto) [place] # (Auto) Eos # (Auto) Baso # (Auto) Abs Immat Gran (auto) Absolute Neuts (auto) Absolute Nucleated RBC Nucleated RBC % (auto) Smear Tech's Comments ESR PT INR VBG pH VBG pCO2 VBG pO2 VBG HCO3 VBG O2 Saturation VBG Base Excess Anion Gap Estim Creat Clear Calc Estimated GFR POC Glucose 83 Random Glucose Lactic Acid 13.6 H* Lactic Acid F/U @ 2Hr Lactic Acid F/U @ 4Hr Calcium Phosphorus Magnesium Total Bilirubin AST ALT Alkaline Phosphatase Troponin I High Sens 107.2 H* D C-Reactive Protein Total Protein Albumin Hep Bs Antigen Hep Bs Antibody Hep B Core Total Ab Hepatitis C Ab (EIA) Blood Type Antibody Screen Crossmatch 07/24/22 07/24/22 07/24/22 11:11 11:42 12:37 MCV MCH MCHC RDW Plt Count MPV Immature Gran % (Auto) Neut % (Auto) Lymph % (Auto) [place] % (Auto) Eos % (Auto) Baso % (Auto) Lymph # (Auto) [place] # (Auto) Eos # (Auto) Baso # (Auto) Abs Immat Gran (auto) Absolute Neuts (auto) Absolute Nucleated RBC Nucleated RBC % (auto) Smear Tech's Comments ESR PT INR VBG pH VBG pCO2 VBG pO2 VBG HCO3 VBG O2 Saturation VBG Base Excess Anion Gap Estim Creat Clear Calc Estimated GFR POC Glucose 93 79 85 Random Glucose Lactic Acid Lactic Acid F/U @ 2Hr Lactic Acid F/U @ 4Hr Calcium Phosphorus Magnesium Total Bilirubin AST ALT Alkaline Phosphatase Troponin I High Sens C-Reactive Protein Total Protein Albumin Hep Bs Antigen Hep Bs Antibody Hep B Core Total Ab Hepatitis C Ab (EIA) Blood Type Antibody Screen Crossmatch 07/24/22 07/24/22 07/24/22 13:17 14:19 15:05 MCV MCH MCHC RDW Plt Count MPV Immature Gran % (Auto) Neut % (Auto) Lymph % (Auto) [place] % (Auto) Eos % (Auto) Baso % (Auto) Lymph # (Auto) [place] # (Auto) Eos # (Auto) Baso # (Auto) Abs Immat Gran (auto) Absolute Neuts (auto) Absolute Nucleated RBC Nucleated RBC % (auto) Smear Tech's Comments ESR PT INR VBG pH 7.05 L* VBG pCO2 23 VBG pO2 67 VBG HCO3 6 L VBG O2 Saturation TNP VBG Base Excess -21.2 Anion Gap Estim Creat Clear Calc Estimated GFR POC Glucose 79 Random Glucose Lactic Acid Lactic Acid F/U @ 2Hr Lactic Acid F/U @ 4Hr Calcium Phosphorus Magnesium Total Bilirubin AST ALT Alkaline Phosphatase Troponin I High Sens C-Reactive Protein Total Protein Albumin Hep Bs Antigen Hep Bs Antibody Hep B Core Total Ab Hepatitis C Ab (EIA) Blood Type A Positive Antibody Screen NEGATIVE Crossmatch See Detail 07/24/22 07/24/22 07/24/22 15:39 15:39 15:39 MCV 103.7 H MCH 32.4 MCHC 31.3 RDW 18.0 H Plt Count 87 L D MPV 10.7 Immature Gran % (Auto) 3.0 H Neut % (Auto) 89.5 H Lymph % (Auto) 3.6 L [place] % (Auto) 3.8 Eos % (Auto) 0.0 Baso % (Auto) 0.1 Lymph # (Auto) 0.9 L [place] # (Auto) 1.0 Eos # (Auto) 0.0 Baso # (Auto) 0.0 Abs Immat Gran (auto) 0.75 H Absolute Neuts (auto) 22.4 H Absolute Nucleated RBC 0.070 H Nucleated RBC % (auto) 0.3 H Smear Tech's Comments VERIFIED ESR PT INR VBG pH VBG pCO2 VBG pO2 VBG HCO3 VBG O2 Saturation VBG Base Excess Anion Gap 27 H Estim Creat Clear Calc 35.7 Estimated GFR 26 POC Glucose Random Glucose 132 H Lactic Acid 19.8 H* Lactic Acid F/U @ 2Hr Lactic Acid F/U @ 4Hr Calcium 7.9 L Phosphorus Magnesium Total Bilirubin 0.4 AST 355 H ALT 234 H Alkaline Phosphatase 97 Troponin I High Sens C-Reactive Protein Total Protein 3.7 L Albumin 1.6 L Hep Bs Antigen Hep Bs Antibody Hep B Core Total Ab Hepatitis C Ab (EIA) Blood Type Antibody Screen Crossmatch 07/24/22 07/24/22 07/24/22 15:39 15:40 15:47 MCV MCH MCHC RDW Plt Count MPV Immature Gran % (Auto) Neut % (Auto) Lymph % (Auto) [place] % (Auto) Eos % (Auto) Baso % (Auto) Lymph # (Auto) [place] # (Auto) Eos # (Auto) Baso # (Auto) Abs Immat Gran (auto) Absolute Neuts (auto) Absolute Nucleated RBC Nucleated RBC % (auto) Smear Tech's Comments ESR PT INR VBG pH 7.08 L* VBG pCO2 27 VBG pO2 138 VBG HCO3 8 L VBG O2 Saturation TNP VBG Base Excess -19.2 Anion Gap Estim Creat Clear Calc Estimated GFR POC Glucose 66 Random Glucose Lactic Acid Lactic Acid F/U @ 2Hr Lactic Acid F/U @ 4Hr Calcium Phosphorus Magnesium Total Bilirubin AST ALT Alkaline Phosphatase Troponin I High Sens 98.7 H D C-Reactive Protein Total Protein Albumin Hep Bs Antigen Hep Bs Antibody Hep B Core Total Ab Hepatitis C Ab (EIA) Blood Type Antibody Screen Crossmatch 07/24/22 07/24/22 07/24/22 16:37 16:47 18:00 MCV 98.4 H D MCH 31.2 MCHC 31.7 RDW 15.3 Plt Count 72 L MPV 11.3 Immature Gran % (Auto) 1.4 H Neut % (Auto) 92.6 H Lymph % (Auto) 1.2 L [place] % (Auto) 4.5 Eos % (Auto) 0.1 Baso % (Auto) 0.2 Lymph # (Auto) 0.4 L [place] # (Auto) 1.4 H Eos # (Auto) 0.0 Baso # (Auto) 0.1 Abs Immat Gran (auto) 0.43 H Absolute Neuts (auto) 28.9 H Absolute Nucleated RBC 0.070 H Nucleated RBC % (auto) 0.2 Smear Tech's Comments ESR PT 45.3 H INR 3.7 H VBG pH VBG pCO2 VBG pO2 VBG HCO3 VBG O2 Saturation VBG Base Excess Anion Gap Estim Creat Clear Calc Estimated GFR POC Glucose 165 H Random Glucose Lactic Acid Lactic Acid F/U @ 2Hr Lactic Acid F/U @ 4Hr Calcium Phosphorus Magnesium Total Bilirubin AST ALT Alkaline Phosphatase Troponin I High Sens C-Reactive Protein Total Protein Albumin Hep Bs Antigen Hep Bs Antibody Hep B Core Total Ab Hepatitis C Ab (EIA) Blood Type Antibody Screen Crossmatch 07/24/22 07/24/22 07/24/22 18:00 18:00 20:43 MCV 96.4 MCH 31.2 MCHC 32.4 RDW 15.5 Plt Count 63 L MPV 10.9 Immature Gran % (Auto) 1.9 H Neut % (Auto) 92.7 H Lymph % (Auto) 0.9 L [place] % (Auto) 4.2 Eos % (Auto) 0.1 Baso % (Auto) 0.2 Lymph # (Auto) 0.3 L [place] # (Auto) 1.5 H Eos # (Auto) 0.0 Baso # (Auto) 0.1 Abs Immat Gran (auto) 0.67 H Absolute Neuts (auto) 33.5 H Absolute Nucleated RBC 0.100 H Nucleated RBC % (auto) 0.3 H Smear Tech's Comments ESR PT INR VBG pH 7.01 L* VBG pCO2 24 VBG pO2 66 VBG HCO3 6 L VBG O2 Saturation 86.0 VBG Base Excess -22.9 Anion Gap Estim Creat Clear Calc Estimated GFR POC Glucose Random Glucose Lactic Acid Lactic Acid F/U @ 2Hr 16.7 H* Lactic Acid F/U @ 4Hr Calcium Phosphorus Magnesium Total Bilirubin AST ALT Alkaline Phosphatase Troponin I High Sens C-Reactive Protein Total Protein Albumin Hep Bs Antigen Hep Bs Antibody Hep B Core Total Ab Hepatitis C Ab (EIA) Blood Type Antibody Screen Crossmatch 07/24/22 07/24/22 07/24/22 20:43 20:43 20:43 MCV MCH MCHC RDW Plt Count MPV Immature Gran % (Auto) Neut % (Auto) Lymph % (Auto) [place] % (Auto) Eos % (Auto) Baso % (Auto) Lymph # (Auto) [place] # (Auto) Eos # (Auto) Baso # (Auto) Abs Immat Gran (auto) Absolute Neuts (auto) Absolute Nucleated RBC Nucleated RBC % (auto) Smear Tech's Comments ESR PT 31.3 H INR 2.6 H VBG pH VBG pCO2 VBG pO2 VBG HCO3 VBG O2 Saturation VBG Base Excess Anion Gap 34 H Estim Creat Clear Calc 34.9 Estimated GFR 25 POC Glucose Random Glucose 194 H D Lactic Acid Lactic Acid F/U @ 2Hr Lactic Acid F/U @ 4Hr 16.1 H* Calcium 7.9 L Phosphorus Magnesium Total Bilirubin AST ALT Alkaline Phosphatase Troponin I High Sens C-Reactive Protein Total Protein Albumin Hep Bs Antigen Hep Bs Antibody Hep B Core Total Ab Hepatitis C Ab (EIA) Blood Type Antibody Screen Crossmatch 07/24/22 07/25/22 07/25/22 20:59 00:35 00:35 MCV 94.8 MCH 31.3 MCHC 33.0 RDW 16.0 Plt Count 57 L MPV 11.3 Immature Gran % (Auto) Neut % (Auto) Lymph % (Auto) [place] % (Auto) Eos % (Auto) Baso % (Auto) Lymph # (Auto) [place] # (Auto) Eos # (Auto) Baso # (Auto) Abs Immat Gran (auto) Absolute Neuts (auto) Absolute Nucleated RBC 0.110 H Nucleated RBC % (auto) 0.3 H Smear Tech's Comments ESR PT INR VBG pH VBG pCO2 VBG pO2 VBG HCO3 VBG O2 Saturation VBG Base Excess Anion Gap 35 H Estim Creat Clear Calc 35.0 Estimated GFR 25 POC Glucose 141 H Random Glucose 204 H Lactic Acid Lactic Acid F/U @ 2Hr Lactic Acid F/U @ 4Hr Calcium 8.0 L Phosphorus Magnesium Total Bilirubin AST ALT Alkaline Phosphatase Troponin I High Sens C-Reactive Protein Total Protein Albumin Hep Bs Antigen Hep Bs Antibody Hep B Core Total Ab Hepatitis C Ab (EIA) Blood Type Antibody Screen Crossmatch 07/25/22 07/25/22 07/25/22 00:35 03:15 04:35 MCV MCH MCHC RDW Plt Count MPV Immature Gran % (Auto) Neut % (Auto) Lymph % (Auto) [place] % (Auto) Eos % (Auto) Baso % (Auto) Lymph # (Auto) [place] # (Auto) Eos # (Auto) Baso # (Auto) Abs Immat Gran (auto) Absolute Neuts (auto) Absolute Nucleated RBC Nucleated RBC % (auto) Smear Tech's Comments ESR PT INR VBG pH VBG pCO2 VBG pO2 VBG HCO3 VBG O2 Saturation VBG Base Excess Anion Gap 33 H Estim Creat Clear Calc 35.3 Estimated GFR 26 POC Glucose Random Glucose 205 H Lactic Acid 15.6 H* Lactic Acid F/U @ 2Hr 15.9 H* Lactic Acid F/U @ 4Hr Calcium 7.8 L Phosphorus 6.2 H Magnesium 1.9 Total Bilirubin 1.5 H AST 792 H ALT 418 H Alkaline Phosphatase 105 Troponin I High Sens C-Reactive Protein 4.90 H Total Protein 4.6 L Albumin 2.5 L Hep Bs Antigen Hep Bs Antibody Hep B Core Total Ab Hepatitis C Ab (EIA) Blood Type Antibody Screen Crossmatch 07/25/22 07/25/22 07/25/22 04:35 04:35 04:35 MCV 93.2 MCH 31.4 MCHC 33.7 RDW 16.6 H Plt Count 64 L MPV 11.7 Immature Gran % (Auto) Neut % (Auto) Lymph % (Auto) [place] % (Auto) Eos % (Auto) Baso % (Auto) Lymph # (Auto) [place] # (Auto) Eos # (Auto) Baso # (Auto) Abs Immat Gran (auto) Absolute Neuts (auto) Absolute Nucleated RBC 0.130 H Nucleated RBC % (auto) 0.4 H Smear Tech's Comments ESR 13 PT 31.1 H INR 2.6 H VBG pH VBG pCO2 VBG pO2 VBG HCO3 VBG O2 Saturation VBG Base Excess Anion Gap Estim Creat Clear Calc Estimated GFR POC Glucose Random Glucose Lactic Acid Lactic Acid F/U @ 2Hr Lactic Acid F/U @ 4Hr Calcium Phosphorus Magnesium Total Bilirubin AST ALT Alkaline Phosphatase Troponin I High Sens C-Reactive Protein Total Protein Albumin Hep Bs Antigen Hep Bs Antibody Hep B Core Total Ab Hepatitis C Ab (EIA) Blood Type Antibody Screen Crossmatch 07/25/22 07/25/22 05:45 07:23 MCV MCH MCHC RDW Plt Count MPV Immature Gran % (Auto) Neut % (Auto) Lymph % (Auto) [place] % (Auto) Eos % (Auto) Baso % (Auto) Lymph # (Auto) [place] # (Auto) Eos # (Auto) Baso # (Auto) Abs Immat Gran (auto) Absolute Neuts (auto) Absolute Nucleated RBC Nucleated RBC % (auto) Smear Tech's Comments ESR PT INR VBG pH VBG pCO2 VBG pO2 VBG HCO3 VBG O2 Saturation VBG Base Excess Anion Gap Estim Creat Clear Calc Estimated GFR POC Glucose 203 H Random Glucose Lactic Acid Lactic Acid F/U @ 2Hr Lactic Acid F/U @ 4Hr 15.5 H* Calcium Phosphorus Magnesium Total Bilirubin AST ALT Alkaline Phosphatase Troponin I High Sens C-Reactive Protein Total Protein Albumin Hep Bs Antigen Hep Bs Antibody Hep B Core Total Ab Hepatitis C Ab (EIA) Blood Type Antibody Screen Crossmatch Procedures Date of Service Date of Service: 12/05/22 Progress Note: A&P Assessment and plan (1) Upper GI bleed: Status: Acute Assessment and Plan: Significant anemia GI has seen the patient - EGD likely plan Currently no obvious active bleeding Abdomen soft and benign He also has large and deep sacral decubitus ulcer, with associated osteomyelitis of the sacrum OG tube in place CT from yesterday reviewed - significant gastric distension, some mesenteric fat stranding anasarca, otherwise no other intra-abdominal pathology Transfuse p.r.n. Time Spent With Patient Time: Total time spent is greater than 50% in coordination of care (as documented) at patient's floor/unit and/or counseling patient: Quality Stroke Does the patient have a stroke diagnosis?: No VTE Prior VTE?: No VTE Risk Level:: Medical - moderate - high VTE Device Contraindication: Treatment Not Indicated VTE Drug Contraindication: N/A - Med Ordered
[2022-07-25] MEDS: Phytonadione (Vit K1) 10 MG in 0.9 % Sodium Chloride 50 ML 51 MG IV ×4 (09:03→22:47)
--- NOTE | 2022-07-25 09:04 | W.PM.CCHP ---
Procedures Date of Service Date of Service: 07/25/22 Central Line Placement Left IJ: Central Line Comments: PROCEDURE:? Insertion left internal jugular triple lumen central venous catheter. INDICATION:? Cardiogenic shock. For venous access. ANESTHESIA:? Local plus propofol infusion. PROCEDURE:? Vascular ultrasound was used to examine the left neck.? A large compressible internal jugular vein was noted superior to the CA. The left neck and shoulder area was widely prepped and draped in full sterile fashion.? Local anesthesia was applied to the lateral LIJV insertion site.? Under transverse US guidance, the left IJ vein was cannulated on the 1st pass of the 18 g thin wall needle, w return of dark, non-pulsatile blood.? The wire was threaded without incident.? The 16cm x 7 Spanish triple-lumen CVC was advanced into the vein up to the hub via the Seldinger technique without incident.? There was good blood return x3.? The catheter was sutured x3 and a Biopatch and dry sterile dressing were applied. Postop chest x-ray showed the line in good position with no pneumothorax.? The patient tolerated the procedure well w no complications. Consent for Procedure: Emergent-no informed consent obtained
--- NOTE | 2022-07-25 09:14 | MHC.CM.PN ---
Patient currently in the ICU. Patient was transferred to ICU on 07/24 after a cardiac arrest. Patient is currently vented. [facility] made aware. Continue to monitor for d/c needs.
[2022-07-25 10:10] LABS: Hematocrit 23.5 % (42.0-52.0); Hemoglobin 7.9 g/dl (14.0-18.0); Mean Corpuscular HGB Conc 33.6 g/dl (31.0-36.0); Mean Corpuscular Hemoglobin 30.3 pg (27.0-33.0); Mean Platelet Volume 10.7 fL (9.4-12.4); NRBC Pct Auto 0.4 /100WBC (0.0-0.2); Red Blood Count 2.61 X10*6/uL (4.60-5.80); Red Cell Distribution Width 17.5 % (11.0-16.0)
[2022-07-25 10:18] LABS: Platelet Count 75 X10*3/uL (160-400); White Blood Count 31.7 X10*3/uL (4.8-10.8)
--- NOTE | 2022-07-25 10:39 | MHC.CLN ---
F/U: Patient was transferred to ICU on 07/24 after a cardiac arrest PT IS INTUBATED AND SEDATED CURRENTLY NPO REVIEWED LABS; BRIEFLY DISCUSSED CASE WITH MD-PROCEED WITH PPN DISCUSSED WITH PHARMACY RECOMMEND D104.25 AT 30ML/HR TO PROVIDE 367KCALS (747KCALS WITH SEDATION), 31G PROTEIN REPLETE LYTES NEEDED
[2022-07-25] MEDS: propofoL 1,000 MG/100 ML VIAL 5.76 MG IVCONT (10:52)
[2022-07-25 11:03] LABS: B Type Natriuretic Peptide 10789 pg/mL (<100)
[2022-07-25 11:17] LABS: VBG Base Excess -20.1 mmol/L; VBG HCO3 7 mmol/L (22-26); VBG pCO2 23 mmHg; VBG pO2 54 mmHg
[2022-07-25 11:19] LABS: VBG pCO2 23 mmHg; VBG pO2 54 mmHg
[2022-07-25 11:20] LABS: VBG Base Excess -18.8 mmol/L; VBG HCO3 8 mmol/L (22-26); VBG pH 7.14 (7.32-7.43)
[2022-07-25 11:21] LABS: VBG Base Excess -14.1 mmol/L; VBG HCO3 11 mmol/L (22-26); VBG pCO2 27 mmHg; VBG pO2 81 mmHg
[2022-07-25 11:22] LABS: VBG pH 7.23 (7.32-7.43)
[2022-07-25 11:26] LABS: Venous Blood Gas Refer to POC result
[2022-07-25 11:43] LABS: Lactic Acid 14.7 mmol/L (0.5-2.0)
--- NOTE | 2022-07-25 11:43 | P.PNNP_ITS ---
Subjective Subjective Date of Service: 07/26/22 Interval history: On 08/03/2020 a.m. pt had worsening bicarbonate and significantly elevated lactate. Patient with sudden PEA cardiac arrest at approximately 13:00 on 07/24/2022 with returned spontaneous circulation after four rounds of epinephrine, intubated during the CPR and transferred to intensive care unit. On initial evaluation patient with profound metabolic acidosis despite respiratory compensation. Physical Exam Vital Signs: Vital Signs: Last Vital Signs Temp 96.1 F L 07/25/22 10:00 Pulse 125 H 07/25/22 10:00 Resp 20 07/25/22 10:00 BP 136/81 07/25/22 10:00 Pulse Ox 100 07/25/22 10:00 O2 Del Method 07/25/22 10:00 O2 Flow Rate 2 07/24/22 12:13 FiO2 40 07/25/22 11:26 BMI result Body Mass Index 25.0 Const: General: ill appearing Cardio: Heart sounds: no murmurs and no rubs GI: Palpation (GI): Soft to palpation and nontender Objective Data Labs CBC & Chem 7: 07/26/22 05:05 07/26/22 05:05 Labs: Laboratory Results - last 24 hr 07/22/22 07/24/22 07/24/22 13:47 11:08 11:08 WBC RBC Hgb Hct MCV MCH MCHC RDW Plt Count MPV Immature Gran % (Auto) Neut % (Auto) Lymph % (Auto) [place] % (Auto) Eos % (Auto) Baso % (Auto) Lymph # (Auto) [place] # (Auto) Eos # (Auto) Baso # (Auto) Abs Immat Gran (auto) Absolute Neuts (auto) Absolute Nucleated RBC Nucleated RBC % (auto) Smear Tech's Comments Smear Path Review ESR PT INR VBG pH VBG pCO2 VBG pO2 VBG HCO3 VBG O2 Saturation VBG Base Excess Sodium Potassium Chloride Carbon Dioxide Anion Gap BUN Creatinine Estim Creat Clear Calc Estimated GFR POC Glucose Random Glucose Lactic Acid 13.6 H* Lactic Acid F/U @ 2Hr Lactic Acid F/U @ 4Hr Calcium Phosphorus Magnesium Total Bilirubin AST ALT Alkaline Phosphatase Troponin I High Sens 107.2 H* D C-Reactive Protein B-Natriuretic Peptide Total Protein Albumin Hep Bs Antigen Negative Hep Bs Antibody NONREACTIVE Hep B Core Total Ab Nonreactive Hepatitis C Ab (EIA) Nonreactive Blood Type Antibody Screen Crossmatch 07/24/22 07/24/22 07/24/22 11:42 12:37 13:17 WBC RBC Hgb Hct MCV MCH MCHC RDW Plt Count MPV Immature Gran % (Auto) Neut % (Auto) Lymph % (Auto) [place] % (Auto) Eos % (Auto) Baso % (Auto) Lymph # (Auto) [place] # (Auto) Eos # (Auto) Baso # (Auto) Abs Immat Gran (auto) Absolute Neuts (auto) Absolute Nucleated RBC Nucleated RBC % (auto) Smear Tech's Comments Smear Path Review ESR PT INR VBG pH VBG pCO2 VBG pO2 VBG HCO3 VBG O2 Saturation VBG Base Excess Sodium Potassium Chloride Carbon Dioxide Anion Gap BUN Creatinine Estim Creat Clear Calc Estimated GFR POC Glucose 79 85 79 Random Glucose Lactic Acid Lactic Acid F/U @ 2Hr Lactic Acid F/U @ 4Hr Calcium Phosphorus Magnesium Total Bilirubin AST ALT Alkaline Phosphatase Troponin I High Sens C-Reactive Protein B-Natriuretic Peptide Total Protein Albumin Hep Bs Antigen Hep Bs Antibody Hep B Core Total Ab Hepatitis C Ab (EIA) Blood Type Antibody Screen Crossmatch 07/24/22 07/24/22 07/24/22 14:19 15:05 15:39 WBC 25.1 H RBC 1.08 L D Hgb 3.5 L* D Hct 11.2 L* D MCV 103.7 H MCH 32.4 MCHC 31.3 RDW 18.0 H Plt Count 87 L D MPV 10.7 Immature Gran % (Auto) 3.0 H Neut % (Auto) 89.5 H Lymph % (Auto) 3.6 L [place] % (Auto) 3.8 Eos % (Auto) 0.0 Baso % (Auto) 0.1 Lymph # (Auto) 0.9 L [place] # (Auto) 1.0 Eos # (Auto) 0.0 Baso # (Auto) 0.0 Abs Immat Gran (auto) 0.75 H Absolute Neuts (auto) 22.4 H Absolute Nucleated RBC 0.070 H Nucleated RBC % (auto) 0.3 H Smear Tech's Comments VERIFIED Smear Path Review ESR PT INR VBG pH 7.05 L* VBG pCO2 23 VBG pO2 67 VBG HCO3 6 L VBG O2 Saturation TNP VBG Base Excess -21.2 Sodium Potassium Chloride Carbon Dioxide Anion Gap BUN Creatinine Estim Creat Clear Calc Estimated GFR POC Glucose Random Glucose Lactic Acid Lactic Acid F/U @ 2Hr Lactic Acid F/U @ 4Hr Calcium Phosphorus Magnesium Total Bilirubin AST ALT Alkaline Phosphatase Troponin I High Sens C-Reactive Protein B-Natriuretic Peptide Total Protein Albumin Hep Bs Antigen Hep Bs Antibody Hep B Core Total Ab Hepatitis C Ab (EIA) Blood Type A Positive Antibody Screen NEGATIVE Crossmatch See Detail 07/24/22 07/24/22 07/24/22 15:39 15:39 15:39 WBC RBC Hgb Hct MCV MCH MCHC RDW Plt Count MPV Immature Gran % (Auto) Neut % (Auto) Lymph % (Auto) [place] % (Auto) Eos % (Auto) Baso % (Auto) Lymph # (Auto) [place] # (Auto) Eos # (Auto) Baso # (Auto) Abs Immat Gran (auto) Absolute Neuts (auto) Absolute Nucleated RBC Nucleated RBC % (auto) Smear Tech's Comments Smear Path Review ESR PT INR VBG pH 7.08 L* VBG pCO2 27 VBG pO2 138 VBG HCO3 8 L VBG O2 Saturation TNP VBG Base Excess -19.2 Sodium 129 L Potassium 4.7 Chloride 96 Carbon Dioxide 11 L Anion Gap 27 H BUN 75 H Creatinine 2.49 H Estim Creat Clear Calc 35.7 Estimated GFR 26 POC Glucose Random Glucose 132 H Lactic Acid 19.8 H* Lactic Acid F/U @ 2Hr Lactic Acid F/U @ 4Hr Calcium 7.9 L Phosphorus Magnesium Total Bilirubin 0.4 AST 355 H ALT 234 H Alkaline Phosphatase 97 Troponin I High Sens C-Reactive Protein B-Natriuretic Peptide Total Protein 3.7 L Albumin 1.6 L Hep Bs Antigen Hep Bs Antibody Hep B Core Total Ab Hepatitis C Ab (EIA) Blood Type Antibody Screen Crossmatch 07/24/22 07/24/22 07/24/22 15:40 15:47 16:37 WBC RBC Hgb Hct MCV MCH MCHC RDW Plt Count MPV Immature Gran % (Auto) Neut % (Auto) Lymph % (Auto) [place] % (Auto) Eos % (Auto) Baso % (Auto) Lymph # (Auto) [place] # (Auto) Eos # (Auto) Baso # (Auto) Abs Immat Gran (auto) Absolute Neuts (auto) Absolute Nucleated RBC Nucleated RBC % (auto) Smear Tech's Comments Smear Path Review ESR PT INR VBG pH VBG pCO2 VBG pO2 VBG HCO3 VBG O2 Saturation VBG Base Excess Sodium Potassium Chloride Carbon Dioxide Anion Gap BUN Creatinine Estim Creat Clear Calc Estimated GFR POC Glucose 66 165 H Random Glucose Lactic Acid Lactic Acid F/U @ 2Hr Lactic Acid F/U @ 4Hr Calcium Phosphorus Magnesium Total Bilirubin AST ALT Alkaline Phosphatase Troponin I High Sens 98.7 H D C-Reactive Protein B-Natriuretic Peptide Total Protein Albumin Hep Bs Antigen Hep Bs Antibody Hep B Core Total Ab Hepatitis C Ab (EIA) Blood Type Antibody Screen Crossmatch 07/24/22 07/24/22 07/24/22 16:47 18:00 18:00 WBC 31.2 H* RBC 2.47 L D Hgb 7.7 L D Hct 24.3 L D MCV 98.4 H D MCH 31.2 MCHC 31.7 RDW 15.3 Plt Count 72 L MPV 11.3 Immature Gran % (Auto) 1.4 H Neut % (Auto) 92.6 H Lymph % (Auto) 1.2 L [place] % (Auto) 4.5 Eos % (Auto) 0.1 Baso % (Auto) 0.2 Lymph # (Auto) 0.4 L [place] # (Auto) 1.4 H Eos # (Auto) 0.0 Baso # (Auto) 0.1 Abs Immat Gran (auto) 0.43 H Absolute Neuts (auto) 28.9 H Absolute Nucleated RBC 0.070 H Nucleated RBC % (auto) 0.2 Smear Tech's Comments Smear Path Review ESR PT 45.3 H INR 3.7 H VBG pH VBG pCO2 VBG pO2 VBG HCO3 VBG O2 Saturation VBG Base Excess Sodium Potassium Chloride Carbon Dioxide Anion Gap BUN Creatinine Estim Creat Clear Calc Estimated GFR POC Glucose Random Glucose Lactic Acid Lactic Acid F/U @ 2Hr 16.7 H* Lactic Acid F/U @ 4Hr Calcium Phosphorus Magnesium Total Bilirubin AST ALT Alkaline Phosphatase Troponin I High Sens C-Reactive Protein B-Natriuretic Peptide Total Protein Albumin Hep Bs Antigen Hep Bs Antibody Hep B Core Total Ab Hepatitis C Ab (EIA) Blood Type Antibody Screen Crossmatch 07/24/22 07/24/22 07/24/22 18:00 20:43 20:43 WBC 36.1 H* RBC 2.47 L Hgb 7.7 L Hct 23.8 L MCV 96.4 MCH 31.2 MCHC 32.4 RDW 15.5 Plt Count 63 L MPV 10.9 Immature Gran % (Auto) 1.9 H Neut % (Auto) 92.7 H Lymph % (Auto) 0.9 L [place] % (Auto) 4.2 Eos % (Auto) 0.1 Baso % (Auto) 0.2 Lymph # (Auto) 0.3 L [place] # (Auto) 1.5 H Eos # (Auto) 0.0 Baso # (Auto) 0.1 Abs Immat Gran (auto) 0.67 H Absolute Neuts (auto) 33.5 H Absolute Nucleated RBC 0.100 H Nucleated RBC % (auto) 0.3 H Smear Tech's Comments Smear Path Review ESR PT INR VBG pH 7.01 L* VBG pCO2 24 VBG pO2 66 VBG HCO3 6 L VBG O2 Saturation 86.0 VBG Base Excess -22.9 Sodium Potassium Chloride Carbon Dioxide Anion Gap BUN Creatinine Estim Creat Clear Calc Estimated GFR POC Glucose Random Glucose Lactic Acid Lactic Acid F/U @ 2Hr Lactic Acid F/U @ 4Hr 16.1 H* Calcium Phosphorus Magnesium Total Bilirubin AST ALT Alkaline Phosphatase Troponin I High Sens C-Reactive Protein B-Natriuretic Peptide Total Protein Albumin Hep Bs Antigen Hep Bs Antibody Hep B Core Total Ab Hepatitis C Ab (EIA) Blood Type Antibody Screen Crossmatch 07/24/22 07/24/22 07/24/22 20:43 20:43 20:59 WBC RBC Hgb Hct MCV MCH MCHC RDW Plt Count MPV Immature Gran % (Auto) Neut % (Auto) Lymph % (Auto) [place] % (Auto) Eos % (Auto) Baso % (Auto) Lymph # (Auto) [place] # (Auto) Eos # (Auto) Baso # (Auto) Abs Immat Gran (auto) Absolute Neuts (auto) Absolute Nucleated RBC Nucleated RBC % (auto) Smear Tech's Comments Smear Path Review ESR PT 31.3 H INR 2.6 H VBG pH VBG pCO2 VBG pO2 VBG HCO3 VBG O2 Saturation VBG Base Excess Sodium 132 L Potassium 4.2 Chloride 93 L Carbon Dioxide 9 L* Anion Gap 34 H BUN 76 H Creatinine 2.55 H Estim Creat Clear Calc 34.9 Estimated GFR 25 POC Glucose 141 H Random Glucose 194 H D Lactic Acid Lactic Acid F/U @ 2Hr Lactic Acid F/U @ 4Hr Calcium 7.9 L Phosphorus Magnesium Total Bilirubin AST ALT Alkaline Phosphatase Troponin I High Sens C-Reactive Protein B-Natriuretic Peptide Total Protein Albumin Hep Bs Antigen Hep Bs Antibody Hep B Core Total Ab Hepatitis C Ab (EIA) Blood Type Antibody Screen Crossmatch 07/24/22 07/25/22 07/25/22 21:14 00:35 00:35 WBC 38.8 H* RBC 2.33 L Hgb 7.3 L Hct 22.1 L MCV 94.8 MCH 31.3 MCHC 33.0 RDW 16.0 Plt Count 57 L MPV 11.3 Immature Gran % (Auto) Neut % (Auto) Lymph % (Auto) [place] % (Auto) Eos % (Auto) Baso % (Auto) Lymph # (Auto) [place] # (Auto) Eos # (Auto) Baso # (Auto) Abs Immat Gran (auto) Absolute Neuts (auto) Absolute Nucleated RBC 0.110 H Nucleated RBC % (auto) 0.3 H Smear Tech's Comments Smear Path Review ESR PT INR VBG pH 7.10 L* VBG pCO2 23 VBG pO2 54 VBG HCO3 7 L VBG O2 Saturation 76.0 VBG Base Excess -20.1 Sodium 134 L Potassium 4.3 Chloride 93 L Carbon Dioxide 10 L* Anion Gap 35 H BUN 74 H Creatinine 2.54 H Estim Creat Clear Calc 35.0 Estimated GFR 25 POC Glucose Random Glucose 204 H Lactic Acid Lactic Acid F/U @ 2Hr Lactic Acid F/U @ 4Hr Calcium 8.0 L Phosphorus Magnesium Total Bilirubin AST ALT Alkaline Phosphatase Troponin I High Sens C-Reactive Protein B-Natriuretic Peptide Total Protein Albumin Hep Bs Antigen Hep Bs Antibody Hep B Core Total Ab Hepatitis C Ab (EIA) Blood Type Antibody Screen Crossmatch 07/25/22 07/25/22 07/25/22 00:35 01:13 03:15 WBC RBC Hgb Hct MCV MCH MCHC RDW Plt Count MPV Immature Gran % (Auto) Neut % (Auto) Lymph % (Auto) [place] % (Auto) Eos % (Auto) Baso % (Auto) Lymph # (Auto) [place] # (Auto) Eos # (Auto) Baso # (Auto) Abs Immat Gran (auto) Absolute Neuts (auto) Absolute Nucleated RBC Nucleated RBC % (auto) Smear Tech's Comments Smear Path Review ESR PT INR VBG pH 7.14 L* VBG pCO2 23 VBG pO2 54 VBG HCO3 8 L VBG O2 Saturation 76.0 VBG Base Excess -18.8 Sodium Potassium Chloride Carbon Dioxide Anion Gap BUN Creatinine Estim Creat Clear Calc Estimated GFR POC Glucose Random Glucose Lactic Acid 15.6 H* Lactic Acid F/U @ 2Hr 15.9 H* Lactic Acid F/U @ 4Hr Calcium Phosphorus Magnesium Total Bilirubin AST ALT Alkaline Phosphatase Troponin I High Sens C-Reactive Protein B-Natriuretic Peptide Total Protein Albumin Hep Bs Antigen Hep Bs Antibody Hep B Core Total Ab Hepatitis C Ab (EIA) Blood Type Antibody Screen Crossmatch 07/25/22 07/25/22 07/25/22 04:33 04:35 04:35 WBC RBC Hgb Hct MCV MCH MCHC RDW Plt Count MPV Immature Gran % (Auto) Neut % (Auto) Lymph % (Auto) [place] % (Auto) Eos % (Auto) Baso % (Auto) Lymph # (Auto) [place] # (Auto) Eos # (Auto) Baso # (Auto) Abs Immat Gran (auto) Absolute Neuts (auto) Absolute Nucleated RBC Nucleated RBC % (auto) Smear Tech's Comments Smear Path Review ESR PT 31.1 H INR 2.6 H VBG pH 7.23 L VBG pCO2 27 VBG pO2 81 VBG HCO3 11 L VBG O2 Saturation 94.0 VBG Base Excess -14.1 Sodium 137 Potassium 4.3 Chloride 94 L Carbon Dioxide 14 L Anion Gap 33 H BUN 76 H Creatinine 2.52 H Estim Creat Clear Calc 35.3 Estimated GFR 26 POC Glucose Random Glucose 205 H Lactic Acid Lactic Acid F/U @ 2Hr Lactic Acid F/U @ 4Hr Calcium 7.8 L Phosphorus 6.2 H Magnesium 1.9 Total Bilirubin 1.5 H AST 792 H ALT 418 H Alkaline Phosphatase 105 Troponin I High Sens C-Reactive Protein 4.90 H B-Natriuretic Peptide Total Protein 4.6 L Albumin 2.5 L Hep Bs Antigen Hep Bs Antibody Hep B Core Total Ab Hepatitis C Ab (EIA) Blood Type Antibody Screen Crossmatch 07/25/22 07/25/22 07/25/22 04:35 04:35 05:45 WBC 35.7 H* RBC 2.20 L Hgb 6.9 L* Hct 20.5 L* MCV 93.2 MCH 31.4 MCHC 33.7 RDW 16.6 H Plt Count 64 L MPV 11.7 Immature Gran % (Auto) Neut % (Auto) Lymph % (Auto) [place] % (Auto) Eos % (Auto) Baso % (Auto) Lymph # (Auto) [place] # (Auto) Eos # (Auto) Baso # (Auto) Abs Immat Gran (auto) Absolute Neuts (auto) Absolute Nucleated RBC 0.130 H Nucleated RBC % (auto) 0.4 H Smear Tech's Comments Smear Path Review ESR 13 PT INR VBG pH VBG pCO2 VBG pO2 VBG HCO3 VBG O2 Saturation VBG Base Excess Sodium Potassium Chloride Carbon Dioxide Anion Gap BUN Creatinine Estim Creat Clear Calc Estimated GFR POC Glucose Random Glucose Lactic Acid Lactic Acid F/U @ 2Hr Lactic Acid F/U @ 4Hr 15.5 H* Calcium Phosphorus Magnesium Total Bilirubin AST ALT Alkaline Phosphatase Troponin I High Sens C-Reactive Protein B-Natriuretic Peptide Total Protein Albumin Hep Bs Antigen Hep Bs Antibody Hep B Core Total Ab Hepatitis C Ab (EIA) Blood Type Antibody Screen Crossmatch 07/25/22 07/25/22 07/25/22 07:23 10:00 10:00 WBC 31.7 H* RBC 2.61 L Hgb 7.9 L Hct 23.5 L MCV 90.0 MCH 30.3 MCHC 33.6 RDW 17.5 H Plt Count 75 L MPV 10.7 Immature Gran % (Auto) Neut % (Auto) Lymph % (Auto) [place] % (Auto) Eos % (Auto) Baso % (Auto) Lymph # (Auto) [place] # (Auto) Eos # (Auto) Baso # (Auto) Abs Immat Gran (auto) Absolute Neuts (auto) Absolute Nucleated RBC 0.120 H Nucleated RBC % (auto) 0.4 H Smear Tech's Comments Smear Path Review ESR PT INR VBG pH VBG pCO2 VBG pO2 VBG HCO3 VBG O2 Saturation VBG Base Excess Sodium Potassium Chloride Carbon Dioxide Anion Gap BUN Creatinine Estim Creat Clear Calc Estimated GFR POC Glucose 203 H Random Glucose Lactic Acid Lactic Acid F/U @ 2Hr Lactic Acid F/U @ 4Hr Calcium Phosphorus Magnesium Total Bilirubin AST ALT Alkaline Phosphatase Troponin I High Sens C-Reactive Protein B-Natriuretic Peptide 94640 H Total Protein Albumin Hep Bs Antigen Hep Bs Antibody Hep B Core Total Ab Hepatitis C Ab (EIA) Blood Type Antibody Screen Crossmatch Microbiology Microbiology Results: Microbiology 07/11/22 06:35 Blood - Arterial Line Blood Culture - Final No growth after 5 days. 07/11/22 06:35 Blood - Arterial Line Blood Culture - Final No growth after 5 days. Procedures Date of Service Date of Service: 07/25/22 Assessment & Plan Assessment and plan (1) End stage renal disease: Status: Inactive Plan HD today- ESRD on HD Cardioresp arrest - Intubated Acute Met Acidosis - Lactic acidosis Dec Ulcer Last HD on Monday Regular HD TTS as out patient Followed? 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
[2022-07-25 11:52] LABS: Glucose, Whole Blood 155 mg/dL (60-115)
[2022-07-25 12:05] LABS: Reflex Lactate? Lactic Acid Added
[2022-07-25 13:20] LABS: VBG Base Excess -14.3 mmol/L; VBG HCO3 11 mmol/L (22-26); VBG pCO2 24 mmHg; VBG pH 7.25 (7.32-7.43); VBG pO2 71 mmHg
[2022-07-25 13:39] LABS: VBG Base Excess -12.8 mmol/L; VBG HCO3 12 mmol/L (22-26); VBG pCO2 28 mmHg; VBG pH 7.25 (7.32-7.43); VBG pO2 68 mmHg
[2022-07-25 14:21] LABS: Reflex Lactate? 2 Y
[2022-07-25 15:23] LABS: Hematocrit 23.8 % (42.0-52.0)
[2022-07-25 15:44] LABS: INTERNATIONAL NORM RATIO 2.3 (0.9-1.1); Prothrombin Time 27.1 SEC (10.0-13.1)
--- NOTE | 2022-07-25 16:36 | P.CONWO_ITS ---
History of Present Illness Data of Consult Service Date: 07/25/22 Requesting physician: Bakari Pierce Primary Care Provider: Lamont Chris MD HPI Reason for consult: DTI, skin tears, PI [id number]: Consult requested on [id number]. 67-year-old male in the ICU for 2 weeks, admitted for sepsis and anasarca with a history of diabetes mellitus type 2. He apparently was diagnosed with sacral osteomyelitis and was undergoing IV antibiotics at a short-term rehab facility earlier in the summer. Klebsiella and VRE are noted in the infectious disease consultation. At that time he had a stage IV sacral ulcer. He has a history of end-stage renal disease on hemodialysis. He was receiving IV meropenem and linezolid for 6 weeks. He returned to the hospital with acute illness and we are asked to evaluate his skin. 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 Type 2 diabetes mellitus with hyperglycemia Family History Sister Type 1 diabetes Father Type 1 diabetes Father CAD (coronary artery disease) Mother Stroke Ovarian cancer Surgical History S/P CABG (coronary artery bypass graft) Social History Housing: Other Housing Other:: Short term rehab Alcohol intake: never Patient Tobacco Use Status: Former Tobacco user Advance Directives Date on File: 07/25/22 service: No Current occupational status: retired Meds Allergies Allergy/AdvReac Type Severity Reaction Status Date / Time sulfamethoxazole Allergy Hives Verified 07/11/22 05:49 [From Bactrim] trimethoprim [From Bactrim] Allergy Hives Verified 07/11/22 05:49 Active Medications: Current Medications Chlorhexidine Gluconate (Chlorhexidine Gluc Oral Rinse 15 Ml Mouthwash) 15 ml BUCCAL TID YU Last Admin: 07/25/22 14:39 Dose: 15 ml Meropenem 500 mg/ Sodium (Chloride) 50 mls @ 100 mls/hr IV Q24H YU Stop: 08/23/22 23:29 Last Infusion: 07/25/22 00:37 Dose: Infused Propofol (Diprivan) 1,000 mg in 100 mls @ 0 mls/hr IVCONT .Q0M YU; Protocol Last Titration: 07/25/22 14:39 Dose: 0 mcg/kg/min, 0 mls/hr Fentanyl (Sublimaze/Ns) 1,000 mcg in 100 mls @ 0 mls/hr IVCONT .Q0M YU; Protocol Last Admin: 07/25/22 04:37 Dose: 50 mcg/hr, 5 mls/hr Sodium Bicarbonate 150 meq/ (Dextrose) 1,000 mls @ 100 mls/hr IV .Q10H YU Last Admin: 07/25/22 10:52 Dose: 100 mls/hr Pantoprazole Sodium 80 mg/ (Sodium Chloride) 100 mls @ 10 mls/hr IV .Q10H YU Last Admin: 07/25/22 11:55 Dose: 8 mg/hr, 10 mls/hr Norepinephrine Bitartrate (Levophed) 8 mg in 250 mls @ 0 mls/hr IVCONT .Q0M YU; Protocol Last Titration: 07/25/22 15:26 Dose: 0.24 mcg/kg/min, 43.2 mls/hr Phytonadione 10 mg/ Sodium (Chloride) 51 mls @ 51 mls/hr IV Q6H [facility] Stop: 07/25/22 23:59 Magnesium Sulfate 5 meq/Calcium Gluconate 4.65 meq/Multivitamins 14 ml/ Trace Metals 1.4 ml/ Amino Acids/Electrolytes/Dextrose 720 mls @ 30 mls/hr IVCONT DAILY@1800 YU Stop: 07/26/22 17:59 Diltiazem HCl 125 mg/ Sodium (Chloride) 125 mls @ 0 mls/hr IVCONT .Q0M [facility]; Protocol Insulin Human Lispro (Insulin Lispro 100 Unit/Ml 3 Ml Vial) 0 unit SUBCUT Q6H YU; Protocol Last Admin: 07/25/22 11:54 Dose: 2 unit Linezolid (Linezolid 600 Mg Tablet) 600 mg PO Q12H [facility] Last Admin: 07/24/22 14:13 Dose: Not Given Pharmacy Consult (Consult Rx Perform Med Rec) 1 each MISCELLANE ONCE PRN PRN Reason: Consult order Sodium Chloride (0.9 % Sodium Chloride Flush 3 Ml Syringe) 3 ml IVFLUSH QSHIFT [facility] Last Admin: 07/25/22 14:39 Dose: 3 ml Home Medications Medication Instructions Recorded Confirmed Last Taken Type Lactobacillus acidophilus 1 cap PO DAILY 07/11/22 07/11/22 Unknown History (Acidophilus capsule) apixaban 5 mg tablet (Eliquis) 1 tab PO BID 07/11/22 07/11/22 Unknown History ascorbic acid (vitamin C) 500 mg 500 mg PO BID 07/11/22 07/11/22 Unknown History tablet aspirin 81 mg tablet,delayed 81 mg PO DAILY 07/11/22 07/11/22 Unknown History release atorvastatin 80 mg tablet 80 mg PO BEDTIME 07/11/22 07/11/22 Unknown History calcium carbonate-vitamin D3 600 1 tab PO DAILY 07/11/22 07/11/22 Unknown History mg-125 unit tablet cholestyramine (with sugar) 4 gram 4 g PO BIDWM 07/11/22 07/11/22 Unknown History oral powder collagenase clostridium histo. 250 1 appl topical BID 07/11/22 07/11/22 Unknown History unit/gram topical ointment (Santyl) diphenhydramine HCl 25 mg capsule 25 mg PO TID PRN Itching 07/11/22 07/11/22 Unknown History (Benadryl) docusate sodium 100 mg capsule 100 mg PO DAILY 07/11/22 07/11/22 Unknown History epoetin ciara 10,000 unit/mL 10,000 unit IV TUTHSA 07/11/22 07/11/22 Unknown History injection solution ezetimibe 10 mg tablet 10 mg PO DAILY 07/11/22 07/11/22 Unknown History fentanyl 12 mcg/hr transdermal 1 patch transdermal Q72H 07/11/22 07/11/22 Unknown History patch fluticasone propionate 50 1 spray intranasal DAILY 07/11/22 07/11/22 Unknown History mcg/actuation nasal spray,suspension hydromorphone 2 mg tablet 2 mg PO Q12H PRN Pain 07/11/22 07/11/22 Unknown History insulin glargine 100 unit/mL 25 unit subcut DAILY 07/11/22 07/11/22 Unknown History subcutaneous solution insulin lispro 100 unit/mL 1 sliding scale dose subcut QIDACHS 07/11/22 07/11/22 Unknown History subcutaneous pen melatonin 3 mg tablet 3 mg PO BEDTIME 07/11/22 07/11/22 Unknown History metoprolol succinate 25 mg 25 mg PO DAILY 07/11/22 07/11/22 Unknown History tablet,extended release 24 hr midodrine 10 mg tablet 10 mg PO TUTHSA PRN LOW BLOOD 07/11/22 07/11/22 Unknown History PRESSURE midodrine 5 mg tablet 5 mg PO TID@0900,1200,1800 07/11/22 07/11/22 Unknown History midodrine 5 mg tablet 5 mg PO TUTHSA@0900 07/11/22 07/11/22 Unknown History nitroglycerin 0.4 mg sublingual 0.4 mg sublingual Q5M PRN Chest 07/11/22 07/11/22 Unknown History tablet (Nitrostat) Pain oxycodone 5 mg tablet 5 mg PO Q6H PRN Pain 07/11/22 07/11/22 Unknown History primidone 50 mg tablet 50 mg PO BEDTIME 07/11/22 07/11/22 Unknown History sennosides 8.6 mg tablet 17.2 mg PO DAILY 07/11/22 07/11/22 Unknown History vitamin B complex and vitamin C 1 cap PO DAILY 07/11/22 07/11/22 Unknown History no.20-folic acid 1 mg capsule Physical Exam Vital Signs and Narrative: Vital Signs: Last Vital Signs Temp 96.8 F 07/25/22 15:00 Pulse 128 H 07/25/22 15:00 Resp 18 07/25/22 15:00 BP 116/72 07/25/22 15:00 Pulse Ox 100 07/25/22 15:00 O2 Del Method 07/25/22 15:00 O2 Flow Rate 2 07/24/22 12:13 FiO2 40 07/25/22 16:00 BMI result Body Mass Index 25.0 His nurse is under duress and asks if the consult can be done later. Full skin assessment is not possible. Looks to be third spacing as all extremities are wrapped in ADA wraps. Thicker padding seen on right leg. With nursing assistance, the patient is rolled onto his right side, keeping lines and tubes in place. The sacral dressing is completely saturated, leaking through the topical dressing. There is evidence of drainage through onto the check. Believe this was changed last 24 hours ago. During this brief examination of the sacral ulcer, there does not appear to be periosteal exposure. There is moderate slough the could stand to be surgically debrided if he is stable enough to tolerate a surgical debridement. Additionally, some of the pink healthy tissue is friable just to the touch. Not showing excessive amounts of undermining or maceration but could stand to use sophisticated dressings in the setting of significant serous drainage. Results Labs CBC and Chem 7: 07/25/22 15:17 07/25/22 04:35 Labs: Laboratory Results - last 24 hr 07/22/22 07/24/22 07/24/22 13:47 14:19 15:05 MCV MCH MCHC RDW Plt Count MPV Immature Gran % (Auto) Neut % (Auto) Lymph % (Auto) [place] % (Auto) Eos % (Auto) Baso % (Auto) Lymph # (Auto) [place] # (Auto) Eos # (Auto) Baso # (Auto) Abs Immat Gran (auto) Absolute Neuts (auto) Absolute Nucleated RBC Nucleated RBC % (auto) Smear Tech's Comments Smear Path Review ESR PT INR VBG pH 7.05 L* VBG pCO2 23 VBG pO2 67 VBG HCO3 6 L VBG O2 Saturation TNP VBG Base Excess -21.2 Anion Gap Estim Creat Clear Calc Estimated GFR POC Glucose Random Glucose Lactic Acid Lactic Acid F/U @ 2Hr Lactic Acid F/U @ 4Hr Calcium Phosphorus Magnesium Total Bilirubin AST ALT Alkaline Phosphatase Troponin I High Sens C-Reactive Protein B-Natriuretic Peptide Total Protein Albumin Hep Bs Antigen Negative Hep Bs Antibody NONREACTIVE Hep B Core Total Ab Nonreactive Hepatitis C Ab (EIA) Nonreactive Blood Type A Positive Antibody Screen NEGATIVE Crossmatch See Detail 07/24/22 07/24/22 07/24/22 15:39 15:39 15:39 MCV 103.7 H MCH 32.4 MCHC 31.3 RDW 18.0 H Plt Count 87 L D MPV 10.7 Immature Gran % (Auto) 3.0 H Neut % (Auto) 89.5 H Lymph % (Auto) 3.6 L [place] % (Auto) 3.8 Eos % (Auto) 0.0 Baso % (Auto) 0.1 Lymph # (Auto) 0.9 L [place] # (Auto) 1.0 Eos # (Auto) 0.0 Baso # (Auto) 0.0 Abs Immat Gran (auto) 0.75 H Absolute Neuts (auto) 22.4 H Absolute Nucleated RBC 0.070 H Nucleated RBC % (auto) 0.3 H Smear Tech's Comments VERIFIED Smear Path Review ESR PT INR VBG pH VBG pCO2 VBG pO2 VBG HCO3 VBG O2 Saturation VBG Base Excess Anion Gap 27 H Estim Creat Clear Calc 35.7 Estimated GFR 26 POC Glucose Random Glucose 132 H Lactic Acid 19.8 H* Lactic Acid F/U @ 2Hr Lactic Acid F/U @ 4Hr Calcium 7.9 L Phosphorus Magnesium Total Bilirubin 0.4 AST 355 H ALT 234 H Alkaline Phosphatase 97 Troponin I High Sens C-Reactive Protein B-Natriuretic Peptide Total Protein 3.7 L Albumin 1.6 L Hep Bs Antigen Hep Bs Antibody Hep B Core Total Ab Hepatitis C Ab (EIA) Blood Type Antibody Screen Crossmatch 07/24/22 07/24/22 07/24/22 15:39 15:40 15:47 MCV MCH MCHC RDW Plt Count MPV Immature Gran % (Auto) Neut % (Auto) Lymph % (Auto) [place] % (Auto) Eos % (Auto) Baso % (Auto) Lymph # (Auto) [place] # (Auto) Eos # (Auto) Baso # (Auto) Abs Immat Gran (auto) Absolute Neuts (auto) Absolute Nucleated RBC Nucleated RBC % (auto) Smear Tech's Comments Smear Path Review ESR PT INR VBG pH 7.08 L* VBG pCO2 27 VBG pO2 138 VBG HCO3 8 L VBG O2 Saturation TNP VBG Base Excess -19.2 Anion Gap Estim Creat Clear Calc Estimated GFR POC Glucose 66 Random Glucose Lactic Acid Lactic Acid F/U @ 2Hr Lactic Acid F/U @ 4Hr Calcium Phosphorus Magnesium Total Bilirubin AST ALT Alkaline Phosphatase Troponin I High Sens 98.7 H D C-Reactive Protein B-Natriuretic Peptide Total Protein Albumin Hep Bs Antigen Hep Bs Antibody Hep B Core Total Ab Hepatitis C Ab (EIA) Blood Type Antibody Screen Crossmatch 07/24/22 07/24/22 07/24/22 16:37 16:47 18:00 MCV 98.4 H D MCH 31.2 MCHC 31.7 RDW 15.3 Plt Count 72 L MPV 11.3 Immature Gran % (Auto) 1.4 H Neut % (Auto) 92.6 H Lymph % (Auto) 1.2 L [place] % (Auto) 4.5 Eos % (Auto) 0.1 Baso % (Auto) 0.2 Lymph # (Auto) 0.4 L [place] # (Auto) 1.4 H Eos # (Auto) 0.0 Baso # (Auto) 0.1 Abs Immat Gran (auto) 0.43 H Absolute Neuts (auto) 28.9 H Absolute Nucleated RBC 0.070 H Nucleated RBC % (auto) 0.2 Smear Tech's Comments Smear Path Review ESR PT 45.3 H INR 3.7 H VBG pH VBG pCO2 VBG pO2 VBG HCO3 VBG O2 Saturation VBG Base Excess Anion Gap Estim Creat Clear Calc Estimated GFR POC Glucose 165 H Random Glucose Lactic Acid Lactic Acid F/U @ 2Hr Lactic Acid F/U @ 4Hr Calcium Phosphorus Magnesium Total Bilirubin AST ALT Alkaline Phosphatase Troponin I High Sens C-Reactive Protein B-Natriuretic Peptide Total Protein Albumin Hep Bs Antigen Hep Bs Antibody Hep B Core Total Ab Hepatitis C Ab (EIA) Blood Type Antibody Screen Crossmatch 07/24/22 07/24/22 07/24/22 18:00 18:00 20:43 MCV 96.4 MCH 31.2 MCHC 32.4 RDW 15.5 Plt Count 63 L MPV 10.9 Immature Gran % (Auto) 1.9 H Neut % (Auto) 92.7 H Lymph % (Auto) 0.9 L [place] % (Auto) 4.2 Eos % (Auto) 0.1 Baso % (Auto) 0.2 Lymph # (Auto) 0.3 L [place] # (Auto) 1.5 H Eos # (Auto) 0.0 Baso # (Auto) 0.1 Abs Immat Gran (auto) 0.67 H Absolute Neuts (auto) 33.5 H Absolute Nucleated RBC 0.100 H Nucleated RBC % (auto) 0.3 H Smear Tech's Comments Smear Path Review ESR PT INR VBG pH 7.01 L* VBG pCO2 24 VBG pO2 66 VBG HCO3 6 L VBG O2 Saturation 86.0 VBG Base Excess -22.9 Anion Gap Estim Creat Clear Calc Estimated GFR POC Glucose Random Glucose Lactic Acid Lactic Acid F/U @ 2Hr 16.7 H* Lactic Acid F/U @ 4Hr Calcium Phosphorus Magnesium Total Bilirubin AST ALT Alkaline Phosphatase Troponin I High Sens C-Reactive Protein B-Natriuretic Peptide Total Protein Albumin Hep Bs Antigen Hep Bs Antibody Hep B Core Total Ab Hepatitis C Ab (EIA) Blood Type Antibody Screen Crossmatch 07/24/22 07/24/22 07/24/22 20:43 20:43 20:43 MCV MCH MCHC RDW Plt Count MPV Immature Gran % (Auto) Neut % (Auto) Lymph % (Auto) [place] % (Auto) Eos % (Auto) Baso % (Auto) Lymph # (Auto) [place] # (Auto) Eos # (Auto) Baso # (Auto) Abs Immat Gran (auto) Absolute Neuts (auto) Absolute Nucleated RBC Nucleated RBC % (auto) Smear Tech's Comments Smear Path Review ESR PT 31.3 H INR 2.6 H VBG pH VBG pCO2 VBG pO2 VBG HCO3 VBG O2 Saturation VBG Base Excess Anion Gap 34 H Estim Creat Clear Calc 34.9 Estimated GFR 25 POC Glucose Random Glucose 194 H D Lactic Acid Lactic Acid F/U @ 2Hr Lactic Acid F/U @ 4Hr 16.1 H* Calcium 7.9 L Phosphorus Magnesium Total Bilirubin AST ALT Alkaline Phosphatase Troponin I High Sens C-Reactive Protein B-Natriuretic Peptide Total Protein Albumin Hep Bs Antigen Hep Bs Antibody Hep B Core Total Ab Hepatitis C Ab (EIA) Blood Type Antibody Screen Crossmatch 07/24/22 07/24/22 07/25/22 20:59 21:14 00:35 MCV 94.8 MCH 31.3 MCHC 33.0 RDW 16.0 Plt Count 57 L MPV 11.3 Immature Gran % (Auto) Neut % (Auto) Lymph % (Auto) [place] % (Auto) Eos % (Auto) Baso % (Auto) Lymph # (Auto) [place] # (Auto) Eos # (Auto) Baso # (Auto) Abs Immat Gran (auto) Absolute Neuts (auto) Absolute Nucleated RBC 0.110 H Nucleated RBC % (auto) 0.3 H Smear Tech's Comments Smear Path Review ESR PT INR VBG pH 7.10 L* VBG pCO2 23 VBG pO2 54 VBG HCO3 7 L VBG O2 Saturation 76.0 VBG Base Excess -20.1 Anion Gap Estim Creat Clear Calc Estimated GFR POC Glucose 141 H Random Glucose Lactic Acid Lactic Acid F/U @ 2Hr Lactic Acid F/U @ 4Hr Calcium Phosphorus Magnesium Total Bilirubin AST ALT Alkaline Phosphatase Troponin I High Sens C-Reactive Protein B-Natriuretic Peptide Total Protein Albumin Hep Bs Antigen Hep Bs Antibody Hep B Core Total Ab Hepatitis C Ab (EIA) Blood Type Antibody Screen Crossmatch 07/25/22 07/25/22 07/25/22 00:35 00:35 01:13 MCV MCH MCHC RDW Plt Count MPV Immature Gran % (Auto) Neut % (Auto) Lymph % (Auto) [place] % (Auto) Eos % (Auto) Baso % (Auto) Lymph # (Auto) [place] # (Auto) Eos # (Auto) Baso # (Auto) Abs Immat Gran (auto) Absolute Neuts (auto) Absolute Nucleated RBC Nucleated RBC % (auto) Smear Tech's Comments Smear Path Review ESR PT INR VBG pH 7.14 L* VBG pCO2 23 VBG pO2 54 VBG HCO3 8 L VBG O2 Saturation 76.0 VBG Base Excess -18.8 Anion Gap 35 H Estim Creat Clear Calc 35.0 Estimated GFR 25 POC Glucose Random Glucose 204 H Lactic Acid 15.6 H* Lactic Acid F/U @ 2Hr Lactic Acid F/U @ 4Hr Calcium 8.0 L Phosphorus Magnesium Total Bilirubin AST ALT Alkaline Phosphatase Troponin I High Sens C-Reactive Protein B-Natriuretic Peptide Total Protein Albumin Hep Bs Antigen Hep Bs Antibody Hep B Core Total Ab Hepatitis C Ab (EIA) Blood Type Antibody Screen Crossmatch 07/25/22 07/25/22 07/25/22 03:15 04:33 04:35 MCV MCH MCHC RDW Plt Count MPV Immature Gran % (Auto) Neut % (Auto) Lymph % (Auto) [place] % (Auto) Eos % (Auto) Baso % (Auto) Lymph # (Auto) [place] # (Auto) Eos # (Auto) Baso # (Auto) Abs Immat Gran (auto) Absolute Neuts (auto) Absolute Nucleated RBC Nucleated RBC % (auto) Smear Tech's Comments Smear Path Review ESR PT INR VBG pH 7.23 L VBG pCO2 27 VBG pO2 81 VBG HCO3 11 L VBG O2 Saturation 94.0 VBG Base Excess -14.1 Anion Gap 33 H Estim Creat Clear Calc 35.3 Estimated GFR 26 POC Glucose Random Glucose 205 H Lactic Acid Lactic Acid F/U @ 2Hr 15.9 H* Lactic Acid F/U @ 4Hr Calcium 7.8 L Phosphorus 6.2 H Magnesium 1.9 Total Bilirubin 1.5 H AST 792 H ALT 418 H Alkaline Phosphatase 105 Troponin I High Sens C-Reactive Protein 4.90 H B-Natriuretic Peptide Total Protein 4.6 L Albumin 2.5 L Hep Bs Antigen Hep Bs Antibody Hep B Core Total Ab Hepatitis C Ab (EIA) Blood Type Antibody Screen Crossmatch 07/25/22 07/25/22 07/25/22 04:35 04:35 04:35 MCV 93.2 MCH 31.4 MCHC 33.7 RDW 16.6 H Plt Count 64 L MPV 11.7 Immature Gran % (Auto) Neut % (Auto) Lymph % (Auto) [place] % (Auto) Eos % (Auto) Baso % (Auto) Lymph # (Auto) [place] # (Auto) Eos # (Auto) Baso # (Auto) Abs Immat Gran (auto) Absolute Neuts (auto) Absolute Nucleated RBC 0.130 H Nucleated RBC % (auto) 0.4 H Smear Tech's Comments Smear Path Review ESR 13 PT 31.1 H INR 2.6 H VBG pH VBG pCO2 VBG pO2 VBG HCO3 VBG O2 Saturation VBG Base Excess Anion Gap Estim Creat Clear Calc Estimated GFR POC Glucose Random Glucose Lactic Acid Lactic Acid F/U @ 2Hr Lactic Acid F/U @ 4Hr Calcium Phosphorus Magnesium Total Bilirubin AST ALT Alkaline Phosphatase Troponin I High Sens C-Reactive Protein B-Natriuretic Peptide Total Protein Albumin Hep Bs Antigen Hep Bs Antibody Hep B Core Total Ab Hepatitis C Ab (EIA) Blood Type Antibody Screen Crossmatch 07/25/22 07/25/22 07/25/22 05:45 07:23 09:59 MCV MCH MCHC RDW Plt Count MPV Immature Gran % (Auto) Neut % (Auto) Lymph % (Auto) [place] % (Auto) Eos % (Auto) Baso % (Auto) Lymph # (Auto) [place] # (Auto) Eos # (Auto) Baso # (Auto) Abs Immat Gran (auto) Absolute Neuts (auto) Absolute Nucleated RBC Nucleated RBC % (auto) Smear Tech's Comments Smear Path Review ESR PT INR VBG pH 7.25 L VBG pCO2 24 VBG pO2 71 VBG HCO3 11 L VBG O2 Saturation 93.0 VBG Base Excess -14.3 Anion Gap Estim Creat Clear Calc Estimated GFR POC Glucose 203 H Random Glucose Lactic Acid Lactic Acid F/U @ 2Hr Lactic Acid F/U @ 4Hr 15.5 H* Calcium Phosphorus Magnesium Total Bilirubin AST ALT Alkaline Phosphatase Troponin I High Sens C-Reactive Protein B-Natriuretic Peptide Total Protein Albumin Hep Bs Antigen Hep Bs Antibody Hep B Core Total Ab Hepatitis C Ab (EIA) Blood Type Antibody Screen Crossmatch 07/25/22 07/25/22 07/25/22 10:00 10:00 10:00 MCV 90.0 MCH 30.3 MCHC 33.6 RDW 17.5 H Plt Count 75 L MPV 10.7 Immature Gran % (Auto) Neut % (Auto) Lymph % (Auto) [place] % (Auto) Eos % (Auto) Baso % (Auto) Lymph # (Auto) [place] # (Auto) Eos # (Auto) Baso # (Auto) Abs Immat Gran (auto) Absolute Neuts (auto) Absolute Nucleated RBC 0.120 H Nucleated RBC % (auto) 0.4 H Smear Tech's Comments Smear Path Review ESR PT INR VBG pH VBG pCO2 VBG pO2 VBG HCO3 VBG O2 Saturation VBG Base Excess Anion Gap Estim Creat Clear Calc Estimated GFR POC Glucose Random Glucose Lactic Acid 14.7 H* Lactic Acid F/U @ 2Hr Lactic Acid F/U @ 4Hr Calcium Phosphorus Magnesium Total Bilirubin AST ALT Alkaline Phosphatase Troponin I High Sens C-Reactive Protein B-Natriuretic Peptide 27748 H Total Protein Albumin Hep Bs Antigen Hep Bs Antibody Hep B Core Total Ab Hepatitis C Ab (EIA) Blood Type Antibody Screen Crossmatch 07/25/22 07/25/22 07/25/22 11:48 12:18 13:33 MCV MCH MCHC RDW Plt Count MPV Immature Gran % (Auto) Neut % (Auto) Lymph % (Auto) [place] % (Auto) Eos % (Auto) Baso % (Auto) Lymph # (Auto) [place] # (Auto) Eos # (Auto) Baso # (Auto) Abs Immat Gran (auto) Absolute Neuts (auto) Absolute Nucleated RBC Nucleated RBC % (auto) Smear Tech's Comments Smear Path Review ESR PT INR VBG pH 7.25 L VBG pCO2 28 VBG pO2 68 VBG HCO3 12 L VBG O2 Saturation 91.0 VBG Base Excess -12.8 Anion Gap Estim Creat Clear Calc Estimated GFR POC Glucose 155 H Random Glucose Lactic Acid Lactic Acid F/U @ 2Hr 14.0 H* Lactic Acid F/U @ 4Hr Calcium Phosphorus Magnesium Total Bilirubin AST ALT Alkaline Phosphatase Troponin I High Sens C-Reactive Protein B-Natriuretic Peptide Total Protein Albumin Hep Bs Antigen Hep Bs Antibody Hep B Core Total Ab Hepatitis C Ab (EIA) Blood Type Antibody Screen Crossmatch 07/25/22 15:17 MCV MCH MCHC RDW Plt Count MPV Immature Gran % (Auto) Neut % (Auto) Lymph % (Auto) [place] % (Auto) Eos % (Auto) Baso % (Auto) Lymph # (Auto) [place] # (Auto) Eos # (Auto) Baso # (Auto) Abs Immat Gran (auto) Absolute Neuts (auto) Absolute Nucleated RBC Nucleated RBC % (auto) Smear Tech's Comments Smear Path Review ESR PT 27.1 H INR 2.3 H VBG pH VBG pCO2 VBG pO2 VBG HCO3 VBG O2 Saturation VBG Base Excess Anion Gap Estim Creat Clear Calc Estimated GFR POC Glucose Random Glucose Lactic Acid Lactic Acid F/U @ 2Hr Lactic Acid F/U @ 4Hr Calcium Phosphorus Magnesium Total Bilirubin AST ALT Alkaline Phosphatase Troponin I High Sens C-Reactive Protein B-Natriuretic Peptide Total Protein Albumin Hep Bs Antigen Hep Bs Antibody Hep B Core Total Ab Hepatitis C Ab (EIA) Blood Type Antibody Screen Crossmatch Imaging Radiologist's Impressions: Impressions Abdomen/Pelvis CT 07/24/22 15:38 IMPRESSION: Small bilateral pleural effusions with multiple rib fractures as described above. Anasarca and diffuse fat streaking within the mesentery and retroperitoneal fat as well. Cholelithiasis without evidence of acute cholecystitis. Poorly evaluated spleen and splenic laceration is not excluded. Ultrasound would be of help in further evaluation of this. Small amount of free fluid within the abdomen and pelvis. Old granulomatous disease. 6 mm right lower lobe nodule. According to the UPDATED 2017 Fleischner Society recommendations, the advised follow-up imaging for a single 6-8 mm solid nodule is: LOW RISK PATIENT: CT at 6-12 months, then consider CT at 18-24 months. HIGH RISK PATIENT: CT at 6-12 months, then at 18-[address] 12/04/22 15:38 IMPRESSION: Small bilateral pleural effusions with multiple rib fractures as described above. Anasarca and diffuse fat streaking within the mesentery and retroperitoneal fat as well. Cholelithiasis without evidence of acute cholecystitis. Poorly evaluated spleen and splenic laceration is not excluded. Ultrasound would be of help in further evaluation of this. Small amount of free fluid within the abdomen and pelvis. Old granulomatous disease. 6 mm right lower lobe nodule. According to the UPDATED 2017 Fleischner Society recommendations, the advised follow-up imaging for a single 6-8 mm solid nodule is: LOW RISK PATIENT: CT at 6-12 months, then consider CT at 18-24 months. HIGH RISK PATIENT: CT at 6-12 months, then at 18-24 months. Chest X-Ray 07/24/22 18:56 IMPRESSION: 1. Endotracheal tube tip terminates 4.2 cm above the jarred. 2. Enteric tube extends below the diaphragm, distal tip not included in the [id number]. 3. 2 right IJ lines, as above. 4. Small right pleural effusion versus pleural thickening. Chest X-Ray 07/25/22 09:14 FINDINGS/IMPRESSION: The study is limited by portable technique, low lung volumes, and overlying leads. The tip of a new left internal jugular presumed central venous line projects over the expected location of the superior vena cava. Otherwise, there has been no significant radiographic change compared with one day prior. No pneumothorax or effusion is seen. No acute infiltrate is noted. Previously seen lines, tubes, and hardware appear unchanged. Assessment and Plan (1) Stage IV pressure ulcer of sacral region: Status: Acute Plan 67 year old male with established osteomyelitis of the sacrum, intubated in ICU with copious serous output from sacral ulcer. As far as I know, super absorbing dressing such as OptiLock and KerrMax are not available and so the best alternative for this patient would be silver alginate as the primary dressing. A small piece was applied today but doubling up the Durafiber with two pieces before the gauze application and topical dressings would be helpful in terms of wound base health by way of autolytic debridement of slough, wicking of moisture and protecting from periosteal exposure. Extremity wounds that were not assessed are likely best served with ADA wraps as already utilized.
--- NOTE | 2022-07-25 16:45 | PM.OP ---
Brief Operative Note Date of Service: 07/25/22 Pre-op diagnosis: UGI bleeding Post-op diagnosis: other ( erosive esophagitis, gastric ulcer, multiple duodenal ulcers) Procedure: UPPER GI ENDOSCOPY WITH HEMOCLIP PLACEMENT Surgeon: Mona Pineda MD Anesthesia: other (Pt was sedated and intubated) Was an [employer]er used for this Procedure?: No Estimated blood loss (mL): 0 Pathology: none sent Condition: stable Disposition: ICU
--- NOTE | 2022-07-25 16:47 | P.OP_ITS ---
Operative Note Operative Note Date of Service: 07/25/22 Narrative: Pre-op diagnosis: UGI bleeding Post-op diagnosis:?other (? erosive esophagitis,? gastric ulcer, multiple duodenal ulcers) Surgeon: Mona Pineda MD Anesthesia:?other (Pt was sedated and intubated) FLEXIBLE TRANSORAL UPPER GASTROINTESTINAL ENDOSCOPY WITH HEMOCLIP PLACEMENT Consent: Indications for the procedure and potential complications of bleeding, perforation, reaction to medications and missed diagnosis were discussed with the patient and informed consent was obtained. Instrument: Olympus GIF H 190 mid size upper endoscope Monitoring: Vital signs and clinical assessment, continuous EKG monitoring, Pulse oximetry, Carbon Dioxide monitoring and blood pressure monitoring were done throughout the procedure. Procedure: The patient was placed in the left lateral decubitis position and pre-procedure medications were administered and a bite block was placed. The endoscope was inserted into the mouth and advanced under direct vision to the third part of duodenum. A careful inspection was made as the upper endoscope was withdrawn including a retroflexed examination of the proximal stomach; Findings and interventions are described below. Findings: Larynx: ET tube in place Esophagus: GE junction at 42 cms. Erosive esophagitis from 38 to 42 cms. Stomach: Full of green bile and partially digested food - which was suctioned. NG tube curved in the distal stomach - removed. A 1.5 to 2 cms area of superficial ulceration covered with a clot (without bleeding) along the lesser curve (likely due to NG tube trauma). Duodenum: Multiple chronic appearing 4-5 mm ulcers in the bulb. A 2 cms non- bleeding ulcer with yellow exudate at the base with a visible vessel - one hemoclip was applied. Normal descending duodenum Intervention: Biopsies as noted above Impression and Post Procedure Diagnosis: Endoscopy Findings: LARYNX: ET tube in place ESOPHAGUS: GE junction at 42 cms. Erosive esophagitis from 38 to 42 cms. STOMACH: Full of green bile and partially digested food - which was suctioned. NG tube curved in the distal stomach - removed. A 1.5 to 2 cms area of superficial ulceration covered with a clot (without bleeding) along the lesser curve (likely due to NG tube trauma). DUODENUM: Multiple chronic appearing 4-5 mm ulcers in the bulb. A 2 cms non- bleeding ulcer with yellow exudate at the base with a visible vessel - one hemoclip was applied. Normal descending duodenum No blood or active bleeding seen in the UGI tract during EGD and no biopsies were obtained. Plan: 1. Continue IV PPI infusion for 48 hrs then IV BID. 2. Check CBC and INR twice daily x 24 hrs. 3. Can consider passage of a feeding tube to initiate trickle feedings. 4. Stool for H Pylori antigen - order placed.
[2022-07-25] MEDS: dilTIAZem HCL 125 MG in 0.9 % Sodium Chloride 100 ML 10 MG IVCONT (17:04)
--- NOTE | 2022-07-25 17:12 | PM.EVENT ---
Event Note Date of Service: 07/25/22 Event Note: pt with edema and prolapse of his loop colsotomy I reduced this by applying circumferential pressure for a few minutes I anticipaite this to keep recurring while he is on positive pressure ventilation stoma remains viable no obstruction on CT abd soft will follow
[2022-07-25] MEDS: Chlorothiazide Sodium 500 MG VIAL IVPUSH (17:43)
[2022-07-25 17:53] LABS: Glucose, Whole Blood 123 mg/dL (60-115)
[2022-07-25] MEDS: Bumetanide 1 MG/4 ML VIAL 2 MG IVPUSH (18:08)
[2022-07-25] MEDS: Bumetanide 25 MG in Container,Empty 0 ML IVCONT (18:08)
--- NOTE | 2022-07-25 18:26 | PC.NURSE ---
Assumed care of patient 07:00. Pitting 3+ and weeping edema to b/l upper and lower extremities with numerous skin tears. Xeroform, gauze, abd pad and tomi bandage dressings applied. Patient noted to be in Afib rate 110s-120s, MD aware. 08:30 Patient ostomy to LLQ large size, edematous, pink/yellow color with serosanguineous output. MD called to bedside to assess. 09:11 on telemetry monitoring 9 beat of Vtach observed. MD notified. 14:00 Wound clinic MD to patient bedside. Sacral dressing changed to stage IV of sacrum by MD with assistance of RN. 14:39 sedation vacation initiated per MD. Propofol paused. 16:16 EGD pre-procedure started. EGD completed by MD at patient bedside. OG tube removed by provider at this time. 17:00 surgical GI at patient bedside to assess LLQ ostomy. MD reduced ostomy and expressed serosanguineous drainage. New colostomy bag applied and draining serosanguineous liquid drainage. 17:30 patient noted to be in Afib rate 130s. MD notified and Cardizem gtt ordered for patient. 17:45 Patient noted to have increasing scrotal edema. MD notified and new orders placed for Bumex gtt and IVP diuretics. Patient repositoned Q2H, Prevlon system utilized, heel boots in place, high fall precautions in place.
[2022-07-25 19:03] LABS: VBG Base Excess -7.5 mmol/L; VBG HCO3 16 mmol/L (22-26); VBG pCO2 28 mmHg; VBG pH 7.37 (7.32-7.43); VBG pO2 92 mmHg
[2022-07-25 19:04] LABS: Venous Blood Gas Refer to POC result
[2022-07-25 19:25] LABS: Lactic Acid 11.8 mmol/L (0.5-2.0)
[2022-07-25 19:30] LABS: Cancel Lactic Acid Canceled
[2022-07-25 19:41] LABS: Troponin-I High Sensitivity > 3600.0 ng/L (<3.5-35.0)
--- NOTE | 2022-07-25 19:48 | ECG_ITS ---
Test Reason : ELEVATED TROP Blood Pressure : / mmHG Vent. Rate : 092 BPM Atrial Rate : 000 BPM P-R Int : 000 ms QRS Dur : 082 ms QT Int : 334 ms P-R-T Axes : 000 054 260 degrees QTc Int : 413 ms Atrial fibrillation Low voltage QRS Cannot rule out Anterior infarct , age undetermined T wave abnormality, consider inferior ischemia Abnormal ECG When compared to the previous EKG of Poor R wave progression is now Present Referred By: Quan Layne Electronically Signed By:SOURAV UP MD
--- NOTE | 2022-07-25 20:02 | PM.CCPN ---
Subjective Subjective Date of Service: 07/25/22 <Chelly Carrasco NP - Last Filed: 07/25/22 20:12> Interval History: Mr. Andujar was admitted to the ICU on 07/24/2022 after PEA arrest on the floor. The patient is a 67-year-old gentleman with underlying diabetes mellitus, CKD and ischemic heart failure, SP CABG about 8-10 years ago, followed by ICD placement.? Over last year or so, EF was reportedly about 40%.? 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 The diuretics no longer worked. He was admitted to [facility] for edema management in March.? Everything went downhill from there, and he was started on HD.? At some point he developed a decubitus ulcer.? He spent approximately 3 weeks at [facility] and was then transferred to [facility] for rehab. ?After 3 weeks at [facility], he was admitted to [facility] for management of sepsis from the Decubitus ulcer.? Then went back to [facility] and since then, been back at [facility] and [facility] for further management of sepsis, the decubitus, and renal failure, including two surgeries for the decubitus, including a diverting colostomy done approximately about 8 weeks ago at [facility]. Currently PMHx additionally includes ESRD on hemodialysis, protein calorie malnutrition, coronary artery disease status post CABG, ischemic cardiomyopathy with EF of 40-45%, status post AICD, PAfib, osteomyelitis of stage IV sacral decubitus ulcer, discoid lupus, and diverting colostomy. On 07/11/2022, he was BIBA to [facility] after developing chest pain. There was no evidence of ACS. He was admitted to the medical floor for stage IV decubitus ulcer/osteomyelitis meeting sepsis criteria and ESRD, and given empiric abx. ?His hospital course since then had been relatively stable, and his discharge was being planned.? He'd had a chronic leukocytosis over the last few months secondary to the osteomyelitis; his WBC remained elevated despite completing a prior course of IV antibiotics.? Most recently Dr. Stein recommended IV meropenem and PO zyvox for 6 weeks. He's been followed by surgery s/p debridement; preventative measures in place with frequent turning, and appropriate bed. TPN was initiated to promote wound healing. ?He was continued on his T-Th-Sat HD schedule. Due to vomiting, he had an xray that showed dilated stomach but no evidence of bowel obstruction. That clinically seems to have resolved. He had intermittent tachycardia and paroxysmal AFIB controlled with Metoprolol 25mg tid. Yesterday morning, the bicarb level on his routine morning labs was low.? A lactate level was checked and came back very high. ?While the patient was being evaluated he went into a PEA arrest at approximately 13:00.? CPR and ACLS administered.? He was never shocked.? He had ROSC after four rounds of epinephrine. ?The duration of CPR was approximately 16 minutes. ?He was intubated during the CPR and transferred to intensive care unit. He did show signs of awakening after CPR and required sedation.? NGT placement after tx to ICU showed blood. Hb was 3.5 (c/w 8.1 one week prior). He was vol resusc with blood and crystalloid. Thru the nite last night he required Levophed and his lactates remained elevated in the 15 range. On my exam this morning, he was sedated,but responded to painful stimuli. Afebrile.? This afternoon, after propofol was turned off, he had consistent eye opening to verbal stimulation, altho remains otherwise unresponsive.? HR 116 in AFib.on a Diltiazem gtt.? BP 111/71 on Levophed 0.23ug. SpO2 100% on Vent, AC 18/450/40/+5 No JVD at 30?.? Crackles at bases? ?The abdomen is mildly rotund, not distended. ?The ostomy bag is half full of red/brown liquid with an edematous prolapse of the loop colostomy.? He has gross anasarca from the waist down. ?13 cm stage IV obviously chronic decubitus ulcer of the sacrum. LABORATORY DATA: ?Below.? Notable for WBC 31.7, Hgb 8.0 (s/p transfusion of 4u RBC, 7u FFP, 1 bag plat) Plat 75K, PT/INR 27.1/2.3, Lactate 14.0 at noon today, BUN/Creat 76/2.5, BNP 20430. ?Transaminases mod elevated.? Last VBG at 6pm showed 7.37/28/-7.? He remains on a bicarb drip.. ECHOCARDIOGRAM this mornin. Mildly dilated LV with significantly reduced LV EF 10-15% with RWMAs consistent with ischemic cardiomyopathy. 2. Mildly dilated RV with moderate RV systolic dysfunction. 3. Mildly dilated LA. 4. Mild MR. 5. Moderate TR.? CWD measured 2.69m/sec (gradient 29mm). 6. Mod dilated IVC with no insp collapse.? Estimated RVSP 44mm. EGD this afternoon by Dr. Pineda. Findings:? Erosive esophagitis; a 1.5cm area of superficial ulceration covered with a clot (without bleeding) along the lesser curve of the stomach, likely due to NG tube trauma; multiple chronic appearing 4-5 mm ulcers in the duodenal bulb; a 2 cm non-bleeding ulcer with yellow exudate at the base of the duodenal bulb with a visible vessel - one hemoclip was applied; normal descending duodenum.? No blood or active bleeding seen in the UGI tract during EGD and no biopsies were obtained. IMPRESSION: 1. Underlying ESRD on HD with refractory anasarca.? Will need daily dialysis (not just T-Th-Sat). 2. Underlying systolic ischemic CMOP. 3. Chronic large stage 4 sacral decubitus with chronic osteomyelitis, s/p diverting sigmoid loop colostomy. Will debride at the bedside tomorrow. 4. S/p Cardiac arrest -- PEA arrest, 2? UGI bleed.? Likely never had full cessation of spont circulation, judging by his rapid return of mental status after 16 min of CPR.? Ischemic CMOP is markedly worsened compared w prior report.? We'll have to see what the outcome of this is, but it might make subsequent HD more unstable, and might make removing fluid more difficult. 5. Cardiogenic shock w shock liver.? No trop or EKG evidence so far of ACS, but his EF is considerably worse this morning. ?Repeat trop is pending. 6. Metabolic/lactic acidosis.? 2? cardiogenic shock, hepatic failure, and renal failure.? I don't think we need to invoke ischemic bowel, jalyn given that Levophed dose is coming down thru the day.? Continue bicarb gtt. 7. Acute Respiratory Failure. Intubated during the CPR. Continue ventilatory support. 8. S/P UGI bleed with hemorrhagic shock.? Continue high dose PPI.? Transfuse to Hgb > 9. 9. AFib w RVR.? Continuing diltiazem drip. 10. ID: Continue meropenam and vanco for osteomyelitis, per ID recs. 11. Diabetes mellitus. SS insulin per protocol. 12. Nutrition.? Continue TPN.? Try Kaofeed tube with trickle feeds tomorrow. Critical care time (including multiple extended family discussions; extended d/w Dr. Pierce, Dr. Moreno, Dr. Vidales, and Dr. Pineda, and extended chart rev):? 2.5+ hrs. <Brant Rainey MD - Last Filed: 07/25/22 20:29> Critical Care Time (minutes): 150 <Chelly Carrasco NP - Last Filed: 07/25/22 20:12> Comment: Mr. Andujar was admitted to the ICU on 07/24/2022 after PEA arrest on the floor. The patient is a 67-year-old gentleman with underlying diabetes mellitus, CKD and ischemic heart failure, SP CABG about 8-10 years ago, followed by ICD placement.? Over last year or so, EF was reportedly about 40%.? 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 The diuretics no longer worked. He was admitted to [facility] for edema management in March.? Everything went downhill from there, and he was started on HD.? At some point he developed a decubitus ulcer.? He spent approximately 3 weeks at [facility] and was then transferred to [facility] for rehab. ?After 3 weeks at [facility], he was admitted to [facility] for management of sepsis from the Decubitus ulcer.? Then went back to [facility] and since then, been back at [facility] and [facility] for further management of sepsis, the decubitus, and renal failure, including two surgeries for the decubitus, including a diverting colostomy done approximately about 8 weeks ago at [facility]. Currently PMHx additionally includes ESRD on hemodialysis, protein calorie malnutrition, coronary artery disease status post CABG, ischemic cardiomyopathy with EF of 40-45%, status post AICD, PAfib, osteomyelitis of stage IV sacral decubitus ulcer, discoid lupus, and diverting colostomy. On 07/11/2022, he was BIBA to [facility] after developing chest pain. There was no evidence of ACS. He was admitted to the medical floor for stage IV decubitus ulcer/osteomyelitis meeting sepsis criteria and ESRD, and given empiric abx. ?His hospital course since then had been relatively stable, and his discharge was being planned.? He'd had a chronic leukocytosis over the last few months secondary to the osteomyelitis; his WBC remained elevated despite completing a prior course of IV antibiotics.? Most recently Dr. Stein recommended IV meropenem and PO zyvox for 6 weeks. He's been followed by surgery s/p debridement; preventative measures in place with frequent turning, and appropriate bed. TPN was initiated to promote wound healing. ?He was continued on his T-Th-Sat HD schedule. Due to vomiting, he had an xray that showed dilated stomach but no evidence of bowel obstruction. That clinically seems to have resolved. He had intermittent tachycardia and paroxysmal AFIB controlled with Metoprolol 25mg tid. Yesterday morning, the bicarb level on his routine morning labs was low.? A lactate level was checked and came back very high. ?While the patient was being evaluated he went into a PEA arrest at approximately 13:00.? CPR and ACLS administered.? He was never shocked.? He had ROSC after four rounds of epinephrine. ?The duration of CPR was approximately 16 minutes. ?He was intubated during the CPR and transferred to intensive care unit. He did show signs of awakening after CPR and required sedation.? Through the night last night he required Levophed and his lactates remained elevated in the 15 range. On my exam this morning, he was sedated,but responded to painful stimuli. Afebrile.? This afternoon, after propofol was turned off, he had consistent eye opening to verbal stimulation, altho remains otherwise unresponsive.? HR 116 in AFib.on a Diltiazem gtt.? BP 111/71 on Levophed 0.23ug. SpO2 100% on Vent, AC 18/450/40/+5 No JVD at 30?.? Crackles at bases? ?The abdomen is mildly rotund, not distended. ?The ostomy bag is half full of red/brown liquid with an edematous prolapse of the loop colostomy.? He has gross anasarca from the waist down. ?13 cm stage IV obviously chronic decubitus ulcer of the sacrum. LABORATORY DATA: ?Below.? Notable for WBC 31.7, Hgb 8.0 (s/p transfusion of 4u RBC, 7u FFP, 1 bag plat) Plat 75K, PT/INR 27.1/2.3, Lactate 14.0 at noon today, BUN/Creat 76/2.5, BNP 86923. ?Transaminases mod elevated.? Last VBG at 6pm showed 7.37/28/-7.? He remains on a bicarb drip.. ECHOCARDIOGRAM this mornin. Mildly dilated LV with significantly reduced LV EF 10-15% with RWMAs consistent with ischemic cardiomyopathy. 2. Mildly dilated RV with moderate RV systolic dysfunction. 3. Mildly dilated LA. 4. Mild MR. 5. Moderate TR.? CWD measured 2.69m/sec (gradient 29mm). 6. Mod dilated IVC with no insp collapse.? Estimated RVSP 44mm. EGD this afternoon by Dr. Pineda:? Erosive esophagitis; a 1.5cm area of superficial ulceration covered with a clot (without bleeding) along the lesser curve of the stomach, likely due to NG tube trauma; multiple chronic appearing 4-5 mm ulcers in the duodenal bulb; a 2 cm non-bleeding ulcer with yellow exudate at the base of the duodenal bulb with a visible vessel - one hemoclip was applied; normal descending duodenum.? No blood or active bleeding seen in the UGI tract during EGD and no biopsies were obtained. IMPRESSION: 1. Underlying ESRD on HD with refractory anasarca.? Will need daily dialysis (not just T-Th-Sat). 2. Underlying systolic ischemic CMOP. 3. Chronic large stage 4 sacral decubitus with chronic osteomyelitis, s/p diverting sigmoid loop colostomy. 4. S/p Cardiac arrest -- PEA arrest, 2? UGI bleed.? Likely never had full cessation of spont circulation, judging by his rapid return of mental status after 16 min of CPR.? Ischemic CMOP is markedly worsened compared w prior report.? We'll have to see what the outcome of this is, but it might make subsequent HD more unstable, and might make removing fluid more difficult. 5. Cardiogenic shock w shock liver.? No trop or EKG evidence so far of ACS, but his EF is considerably worse this morning. ?Repeat trop is pending. 6. Metabolic/lactic acidosis.? 2? cardiogenic shock, hepatic failure, and renal failure.? I don't think we need to invoke ischemic bowel, jalyn given that Levophed dose is coming down thru the day.? Continue bicarb gtt. 7. Acute Respiratory Failure. Intubated during the CPR. Continue ventilatory support. 8. S/P UGI bleed with hemorrhagic shock.? Continue high dose PPI.? Transfuse to HB > 9. 9. AFib w RVR.? Continuing diltiazem drip. 10. ID: Continue meropenam and vanco for osteomyelitis, per ID recs. 11. Diabetes mellitus. SS insulin per protocol. 12. Nutrition.? Continue TPN.? Try Kaofeed tube with trickle feeds tomorrow. Critical care time (including multiple extended family discussions; extended d/w Dr. Pierce, Dr. Moreno, Dr. Vidales, and Dr. Pineda, and extended chart rev):? 2.5+ hrs. <Chelly Carrasco NP - Last Filed: 07/25/22 20:12> Physical Exam Vital Signs: Vital Signs: Last Vital Signs Temp 97.2 F 07/25/22 19:00 Pulse 93 07/25/22 19:00 Resp 21 H 07/25/22 19:00 BP 89/56 L 07/25/22 20:02 Pulse Ox 95 07/25/22 19:00 O2 Del Method 07/25/22 19:00 O2 Flow Rate 2 07/24/22 12:13 FiO2 30 07/25/22 19:39 BMI result Body Mass Index 25.0 <Chelly Danilo, COUNSELOR [employer] - Last Filed: 07/25/22 20:12> Objective Data Labs CBC & Chem 7: : 07/25/22 15:17 07/25/22 04:35 <Chelly Carrasco NP - Last Filed: 07/25/22 20:12> Labs: Laboratory Results - last 24 hr 07/22/22 07/24/22 07/24/22 13:47 15:05 15:39 WBC 25.1 H RBC 1.08 L D Hgb 3.5 L* D Hct 11.2 L* D MCV 103.7 H MCH 32.4 MCHC 31.3 RDW 18.0 H Plt Count 87 L D MPV 10.7 Immature Gran % (Auto) 3.0 H Neut % (Auto) 89.5 H Lymph % (Auto) 3.6 L [place] % (Auto) 3.8 Eos % (Auto) 0.0 Baso % (Auto) 0.1 Lymph # (Auto) 0.9 L [place] # (Auto) 1.0 Eos # (Auto) 0.0 Baso # (Auto) 0.0 Abs Immat Gran (auto) 0.75 H Absolute Neuts (auto) 22.4 H Absolute Nucleated RBC 0.070 H Nucleated RBC % (auto) 0.3 H Smear Tech's Comments VERIFIED Smear Path Review ESR PT INR VBG pH VBG pCO2 VBG pO2 VBG HCO3 VBG O2 Saturation VBG Base Excess Sodium Potassium Chloride Carbon Dioxide Anion Gap BUN Creatinine Estim Creat Clear Calc Estimated GFR POC Glucose Random Glucose Lactic Acid Lactic Acid F/U @ 2Hr Lactic Acid F/U @ 4Hr Calcium Phosphorus Magnesium Total Bilirubin AST ALT Alkaline Phosphatase Troponin I High Sens C-Reactive Protein B-Natriuretic Peptide Total Protein Albumin Hep Bs Antigen Negative Hep Bs Antibody NONREACTIVE Hep B Core Total Ab Nonreactive Hepatitis C Ab (EIA) Nonreactive Blood Type A Positive Antibody Screen NEGATIVE Crossmatch See Detail 07/24/22 07/24/22 07/24/22 20:43 20:43 20:43 WBC 36.1 H* RBC 2.47 L Hgb 7.7 L Hct 23.8 L MCV 96.4 MCH 31.2 MCHC 32.4 RDW 15.5 Plt Count 63 L MPV 10.9 Immature Gran % (Auto) 1.9 H Neut % (Auto) 92.7 H Lymph % (Auto) 0.9 L [place] % (Auto) 4.2 Eos % (Auto) 0.1 Baso % (Auto) 0.2 Lymph # (Auto) 0.3 L [place] # (Auto) 1.5 H Eos # (Auto) 0.0 Baso # (Auto) 0.1 Abs Immat Gran (auto) 0.67 H Absolute Neuts (auto) 33.5 H Absolute Nucleated RBC 0.100 H Nucleated RBC % (auto) 0.3 H Smear Tech's Comments Smear Path Review ESR PT 31.3 H INR 2.6 H VBG pH VBG pCO2 VBG pO2 VBG HCO3 VBG O2 Saturation VBG Base Excess Sodium Potassium Chloride Carbon Dioxide Anion Gap BUN Creatinine Estim Creat Clear Calc Estimated GFR POC Glucose Random Glucose Lactic Acid Lactic Acid F/U @ 2Hr Lactic Acid F/U @ 4Hr 16.1 H* Calcium Phosphorus Magnesium Total Bilirubin AST ALT Alkaline Phosphatase Troponin I High Sens C-Reactive Protein B-Natriuretic Peptide Total Protein Albumin Hep Bs Antigen Hep Bs Antibody Hep B Core Total Ab Hepatitis C Ab (EIA) Blood Type Antibody Screen Crossmatch 07/24/22 07/24/22 07/24/22 20:43 20:59 21:14 WBC RBC Hgb Hct MCV MCH MCHC RDW Plt Count MPV Immature Gran % (Auto) Neut % (Auto) Lymph % (Auto) [place] % (Auto) Eos % (Auto) Baso % (Auto) Lymph # (Auto) [place] # (Auto) Eos # (Auto) Baso # (Auto) Abs Immat Gran (auto) Absolute Neuts (auto) Absolute Nucleated RBC Nucleated RBC % (auto) Smear Tech's Comments Smear Path Review ESR PT INR VBG pH 7.10 L* VBG pCO2 23 VBG pO2 54 VBG HCO3 7 L VBG O2 Saturation 76.0 VBG Base Excess -20.1 Sodium 132 L Potassium 4.2 Chloride 93 L Carbon Dioxide 9 L* Anion Gap 34 H BUN 76 H Creatinine 2.55 H Estim Creat Clear Calc 34.9 Estimated GFR 25 POC Glucose 141 H Random Glucose 194 H D Lactic Acid Lactic Acid F/U @ 2Hr Lactic Acid F/U @ 4Hr Calcium 7.9 L Phosphorus Magnesium Total Bilirubin AST ALT Alkaline Phosphatase Troponin I High Sens C-Reactive Protein B-Natriuretic Peptide Total Protein Albumin Hep Bs Antigen Hep Bs Antibody Hep B Core Total Ab Hepatitis C Ab (EIA) Blood Type Antibody Screen Crossmatch 07/25/22 07/25/22 07/25/22 00:35 00:35 00:35 WBC 38.8 H* RBC 2.33 L Hgb 7.3 L Hct 22.1 L MCV 94.8 MCH 31.3 MCHC 33.0 RDW 16.0 Plt Count 57 L MPV 11.3 Immature Gran % (Auto) Neut % (Auto) Lymph % (Auto) [place] % (Auto) Eos % (Auto) Baso % (Auto) Lymph # (Auto) [place] # (Auto) Eos # (Auto) Baso # (Auto) Abs Immat Gran (auto) Absolute Neuts (auto) Absolute Nucleated RBC 0.110 H Nucleated RBC % (auto) 0.3 H Smear Tech's Comments Smear Path Review ESR PT INR VBG pH VBG pCO2 VBG pO2 VBG HCO3 VBG O2 Saturation VBG Base Excess Sodium 134 L Potassium 4.3 Chloride 93 L Carbon Dioxide 10 L* Anion Gap 35 H BUN 74 H Creatinine 2.54 H Estim Creat Clear Calc 35.0 Estimated GFR 25 POC Glucose Random Glucose 204 H Lactic Acid 15.6 H* Lactic Acid F/U @ 2Hr Lactic Acid F/U @ 4Hr Calcium 8.0 L Phosphorus Magnesium Total Bilirubin AST ALT Alkaline Phosphatase Troponin I High Sens C-Reactive Protein B-Natriuretic Peptide Total Protein Albumin Hep Bs Antigen Hep Bs Antibody Hep B Core Total Ab Hepatitis C Ab (EIA) Blood Type Antibody Screen Crossmatch 07/25/22 07/25/22 07/25/22 01:13 03:15 04:33 WBC RBC Hgb Hct MCV MCH MCHC RDW Plt Count MPV Immature Gran % (Auto) Neut % (Auto) Lymph % (Auto) [place] % (Auto) Eos % (Auto) Baso % (Auto) Lymph # (Auto) [place] # (Auto) Eos # (Auto) Baso # (Auto) Abs Immat Gran (auto) Absolute Neuts (auto) Absolute Nucleated RBC Nucleated RBC % (auto) Smear Tech's Comments Smear Path Review ESR PT INR VBG pH 7.14 L* 7.23 L VBG pCO2 23 27 VBG pO2 54 81 VBG HCO3 8 L 11 L VBG O2 Saturation 76.0 94.0 VBG Base Excess -18.8 -14.1 Sodium Potassium Chloride Carbon Dioxide Anion Gap BUN Creatinine Estim Creat Clear Calc Estimated GFR POC Glucose Random Glucose Lactic Acid Lactic Acid F/U @ 2Hr 15.9 H* Lactic Acid F/U @ 4Hr Calcium Phosphorus Magnesium Total Bilirubin AST ALT Alkaline Phosphatase Troponin I High Sens C-Reactive Protein B-Natriuretic Peptide Total Protein Albumin Hep Bs Antigen Hep Bs Antibody Hep B Core Total Ab Hepatitis C Ab (EIA) Blood Type Antibody Screen Crossmatch 07/25/22 07/25/22 07/25/22 04:35 04:35 04:35 WBC 35.7 H* RBC 2.20 L Hgb 6.9 L* Hct 20.5 L* MCV 93.2 MCH 31.4 MCHC 33.7 RDW 16.6 H Plt Count 64 L MPV 11.7 Immature Gran % (Auto) Neut % (Auto) Lymph % (Auto) [place] % (Auto) Eos % (Auto) Baso % (Auto) Lymph # (Auto) [place] # (Auto) Eos # (Auto) Baso # (Auto) Abs Immat Gran (auto) Absolute Neuts (auto) Absolute Nucleated RBC 0.130 H Nucleated RBC % (auto) 0.4 H Smear Tech's Comments Smear Path Review ESR PT 31.1 H INR 2.6 H VBG pH VBG pCO2 VBG pO2 VBG HCO3 VBG O2 Saturation VBG Base Excess Sodium 137 Potassium 4.3 Chloride 94 L Carbon Dioxide 14 L Anion Gap 33 H BUN 76 H Creatinine 2.52 H Estim Creat Clear Calc 35.3 Estimated GFR 26 POC Glucose Random Glucose 205 H Lactic Acid Lactic Acid F/U @ 2Hr Lactic Acid F/U @ 4Hr Calcium 7.8 L Phosphorus 6.2 H Magnesium 1.9 Total Bilirubin 1.5 H AST 792 H ALT 418 H Alkaline Phosphatase 105 Troponin I High Sens C-Reactive Protein 4.90 H B-Natriuretic Peptide Total Protein 4.6 L Albumin 2.5 L Hep Bs Antigen Hep Bs Antibody Hep B Core Total Ab Hepatitis C Ab (EIA) Blood Type Antibody Screen Crossmatch 07/25/22 07/25/22 07/25/22 04:35 05:45 07:23 WBC RBC Hgb Hct MCV MCH MCHC RDW Plt Count MPV Immature Gran % (Auto) Neut % (Auto) Lymph % (Auto) [place] % (Auto) Eos % (Auto) Baso % (Auto) Lymph # (Auto) [place] # (Auto) Eos # (Auto) Baso # (Auto) Abs Immat Gran (auto) Absolute Neuts (auto) Absolute Nucleated RBC Nucleated RBC % (auto) Smear Tech's Comments Smear Path Review ESR 13 PT INR VBG pH VBG pCO2 VBG pO2 VBG HCO3 VBG O2 Saturation VBG Base Excess Sodium Potassium Chloride Carbon Dioxide Anion Gap BUN Creatinine Estim Creat Clear Calc Estimated GFR POC Glucose 203 H Random Glucose Lactic Acid Lactic Acid F/U @ 2Hr Lactic Acid F/U @ 4Hr 15.5 H* Calcium Phosphorus Magnesium Total Bilirubin AST ALT Alkaline Phosphatase Troponin I High Sens C-Reactive Protein B-Natriuretic Peptide Total Protein Albumin Hep Bs Antigen Hep Bs Antibody Hep B Core Total Ab Hepatitis C Ab (EIA) Blood Type Antibody Screen Crossmatch 07/25/22 07/25/22 07/25/22 09:59 10:00 10:00 WBC 31.7 H* RBC 2.61 L Hgb 7.9 L Hct 23.5 L MCV 90.0 MCH 30.3 MCHC 33.6 RDW 17.5 H Plt Count 75 L MPV 10.7 Immature Gran % (Auto) Neut % (Auto) Lymph % (Auto) [place] % (Auto) Eos % (Auto) Baso % (Auto) Lymph # (Auto) [place] # (Auto) Eos # (Auto) Baso # (Auto) Abs Immat Gran (auto) Absolute Neuts (auto) Absolute Nucleated RBC 0.120 H Nucleated RBC % (auto) 0.4 H Smear Tech's Comments Smear Path Review ESR PT INR VBG pH 7.25 L VBG pCO2 24 VBG pO2 71 VBG HCO3 11 L VBG O2 Saturation 93.0 VBG Base Excess -14.3 Sodium Potassium Chloride Carbon Dioxide Anion Gap BUN Creatinine Estim Creat Clear Calc Estimated GFR POC Glucose Random Glucose Lactic Acid 14.7 H* Lactic Acid F/U @ 2Hr Lactic Acid F/U @ 4Hr Calcium Phosphorus Magnesium Total Bilirubin AST ALT Alkaline Phosphatase Troponin I High Sens C-Reactive Protein B-Natriuretic Peptide Total Protein Albumin Hep Bs Antigen Hep Bs Antibody Hep B Core Total Ab Hepatitis C Ab (EIA) Blood Type Antibody Screen Crossmatch 07/25/22 07/25/22 07/25/22 10:00 11:48 12:18 WBC RBC Hgb Hct MCV MCH MCHC RDW Plt Count MPV Immature Gran % (Auto) Neut % (Auto) Lymph % (Auto) [place] % (Auto) Eos % (Auto) Baso % (Auto) Lymph # (Auto) [place] # (Auto) Eos # (Auto) Baso # (Auto) Abs Immat Gran (auto) Absolute Neuts (auto) Absolute Nucleated RBC Nucleated RBC % (auto) Smear Tech's Comments Smear Path Review ESR PT INR VBG pH VBG pCO2 VBG pO2 VBG HCO3 VBG O2 Saturation VBG Base Excess Sodium Potassium Chloride Carbon Dioxide Anion Gap BUN Creatinine Estim Creat Clear Calc Estimated GFR POC Glucose 155 H Random Glucose Lactic Acid Lactic Acid F/U @ 2Hr 14.0 H* Lactic Acid F/U @ 4Hr Calcium Phosphorus Magnesium Total Bilirubin AST ALT Alkaline Phosphatase Troponin I High Sens C-Reactive Protein B-Natriuretic Peptide 45517 H Total Protein Albumin Hep Bs Antigen Hep Bs Antibody Hep B Core Total Ab Hepatitis C Ab (EIA) Blood Type Antibody Screen Crossmatch 07/25/22 07/25/22 07/25/22 13:33 15:17 15:17 WBC RBC Hgb 8.0 L Hct 23.8 L MCV MCH MCHC RDW Plt Count MPV Immature Gran % (Auto) Neut % (Auto) Lymph % (Auto) [place] % (Auto) Eos % (Auto) Baso % (Auto) Lymph # (Auto) [place] # (Auto) Eos # (Auto) Baso # (Auto) Abs Immat Gran (auto) Absolute Neuts (auto) Absolute Nucleated RBC Nucleated RBC % (auto) Smear Tech's Comments Smear Path Review ESR PT 27.1 H INR 2.3 H VBG pH 7.25 L VBG pCO2 28 VBG pO2 68 VBG HCO3 12 L VBG O2 Saturation 91.0 VBG Base Excess -12.8 Sodium Potassium Chloride Carbon Dioxide Anion Gap BUN Creatinine Estim Creat Clear Calc Estimated GFR POC Glucose Random Glucose Lactic Acid Lactic Acid F/U @ 2Hr Lactic Acid F/U @ 4Hr Calcium Phosphorus Magnesium Total Bilirubin AST ALT Alkaline Phosphatase Troponin I High Sens C-Reactive Protein B-Natriuretic Peptide Total Protein Albumin Hep Bs Antigen Hep Bs Antibody Hep B Core Total Ab Hepatitis C Ab (EIA) Blood Type Antibody Screen Crossmatch 07/25/22 07/25/22 07/25/22 16:59 17:49 18:44 WBC RBC Hgb Hct MCV MCH MCHC RDW Plt Count MPV Immature Gran % (Auto) Neut % (Auto) Lymph % (Auto) [place] % (Auto) Eos % (Auto) Baso % (Auto) Lymph # (Auto) [place] # (Auto) Eos # (Auto) Baso # (Auto) Abs Immat Gran (auto) Absolute Neuts (auto) Absolute Nucleated RBC Nucleated RBC % (auto) Smear Tech's Comments Smear Path Review ESR PT INR VBG pH VBG pCO2 VBG pO2 VBG HCO3 VBG O2 Saturation VBG Base Excess Sodium Potassium Chloride Carbon Dioxide Anion Gap BUN Creatinine Estim Creat Clear Calc Estimated GFR POC Glucose 123 H Random Glucose Lactic Acid Lactic Acid F/U @ 2Hr Lactic Acid F/U @ 4Hr Calcium Phosphorus Magnesium Total Bilirubin AST ALT Alkaline Phosphatase Troponin I High Sens > 3600.0 H* D C-Reactive Protein B-Natriuretic Peptide Total Protein Albumin Hep Bs Antigen Hep Bs Antibody Hep B Core Total Ab Hepatitis C Ab (EIA) Blood Type A Positive Antibody Screen NEGATIVE Crossmatch See Detail 07/25/22 07/25/22 18:45 18:53 WBC RBC Hgb Hct MCV MCH MCHC RDW Plt Count MPV Immature Gran % (Auto) Neut % (Auto) Lymph % (Auto) [place] % (Auto) Eos % (Auto) Baso % (Auto) Lymph # (Auto) [place] # (Auto) Eos # (Auto) Baso # (Auto) Abs Immat Gran (auto) Absolute Neuts (auto) Absolute Nucleated RBC Nucleated RBC % (auto) Smear Tech's Comments Smear Path Review ESR PT INR VBG pH 7.37 VBG pCO2 28 VBG pO2 92 VBG HCO3 16 L VBG O2 Saturation 99.0 VBG Base Excess -7.5 Sodium Potassium Chloride Carbon Dioxide Anion Gap BUN Creatinine Estim Creat Clear Calc Estimated GFR POC Glucose Random Glucose Lactic Acid 11.8 H* Lactic Acid F/U @ 2Hr Lactic Acid F/U @ 4Hr Calcium Phosphorus Magnesium Total Bilirubin AST ALT Alkaline Phosphatase Troponin I High Sens C-Reactive Protein B-Natriuretic Peptide Total Protein Albumin Hep Bs Antigen Hep Bs Antibody Hep B Core Total Ab Hepatitis C Ab (EIA) Blood Type Antibody Screen Crossmatch <Chelly Carrasco COUNSELOR [employer]ORM[employer]ORY - Last Filed: 07/25/22 20:12> Microbiology Microbiology Results: Microbiology 07/11/22 06:35 Blood - Arterial Line Blood Culture - Final No growth after 5 days. 07/11/22 06:35 Blood - Arterial Line Blood Culture - Final No growth after 5 days. <Chelly Carrasco NP - Last Filed: 07/25/22 20:12> Quality Stroke Does the patient have a stroke diagnosis?: No <Chelly Carrasco NP - Last Filed: 07/25/22 20:12> VTE Prior VTE?: No <Chelly Carrasco NP - Last Filed: 07/25/22 20:12> VTE Risk Level:: Medical - moderate - high <Chelly Carrasco NP - Last Filed: 07/25/22 20:12> VTE Device Contraindication: Treatment Not Indicated <Chelly Carrasco NP - Last Filed: 07/25/22 20:12> VTE Drug Contraindication: N/A - Med Ordered <Chelly Carrasco NP - Last Filed: 07/25/22 20:12> Critical Care Time Critical Care Time (minutes): 150 <Brant Rainey MD - Last Filed: 07/25/22 20:29>
[2022-07-25] MEDS: Sodium Bicarbonate 8.4% 150 MEQ in Dextrose 5 % 850 ML 50 MEQ IV (21:56)
[2022-07-25 22:20] LABS: Venous Blood Gas Refer to POC result
[2022-07-25 22:21] LABS: Venous Blood Gas Refer to POC result
[2022-07-25 23:48] LABS: Glucose, Whole Blood 166 mg/dL (60-115)
[2022-07-26] VITALS (39 sets, daily range): BP systolic 72–141; BP diastolic 45–96; PULSE 61–127; RESP 12–28; TEMP 34.7–37.8; O2SAT 96–100; BMI 30.9
[2022-07-26 00:41] LABS: Hematocrit 25.2 % (42.0-52.0); Hemoglobin 8.9 g/dl (14.0-18.0)
[2022-07-26 00:45] LABS: Venous Blood Gas Refer to POC result
[2022-07-26 00:46] LABS: VBG Base Excess -3.1 mmol/L; VBG HCO3 20 mmol/L (22-26); VBG pCO2 29 mmHg; VBG pH 7.43 (7.32-7.43); VBG pO2 46 mmHg
[2022-07-26 00:54] LABS: Lactic Acid 9.2 mmol/L (0.5-2.0)
[2022-07-26 00:57] LABS: C Reactive Protein 10.96 mg/dL (< or = 0.50)
[2022-07-26] MEDS: dilTIAZem HCL 125 MG in 0.9 % Sodium Chloride 100 ML 10 MG IVCONT (02:21)
[2022-07-26 02:38] LABS: Reflex Lactate? Lactic Acid Added
[2022-07-26 05:14] LABS: VBG Base Excess -2.1 mmol/L; VBG HCO3 21 mmol/L (22-26); VBG pCO2 31 mmHg; VBG pH 7.43 (7.32-7.43); VBG pO2 40 mmHg
[2022-07-26 05:16] LABS: Venous Blood Gas Refer to POC result
[2022-07-26 05:39] LABS: Basophils Percent Auto 0.2 % (0-2); Eosinophils Percent Auto 0.1 % (0-4); Hematocrit 25.6 % (42.0-52.0); Hemoglobin 8.8 g/dl (14.0-18.0); Imm Gran Abs Auto 0.19 X10*3/uL (0.00-0.03); Lymphocytes Absolute Auto 0.5 X10*3/uL (1.2-4.9); Lymphocytes Percent Auto 2.6 % (20-40); MANUAL DIFF FLAG SCAN; Mean Corpuscular HGB Conc 34.4 g/dl (31.0-36.0); Mean Corpuscular Hemoglobin 29.2 pg (27.0-33.0); Mean Platelet Volume 11.9 fL (9.4-12.4); Monocytes Absolute Auto 0.8 X10*3/uL (0.1-1.2); NRBC Pct Auto 0.2 /100WBC (0.0-0.2); Neutrophils Absolute Auto 17.6 x10*3/uL (2.0-8.3); Neutrophils Percent Auto 92.1 % (45-73); Red Blood Count 3.01 X10*6/uL (4.60-5.80); Red Cell Distribution Width 17.2 % (11.0-16.0); SCAN SMEAR FLAG 1; White Blood Count 19.1 X10*3/uL (4.8-10.8)
[2022-07-26 05:41] LABS: Platelet Count 52 X10*3/uL (160-400)
[2022-07-26 05:46] LABS: INTERNATIONAL NORM RATIO 2.2 (0.9-1.1); Prothrombin Time 26.1 SEC (10.0-13.1)
[2022-07-26 05:57] LABS: Alanine Aminotransferase 632 U/L (0-40); Albumin Level 2.4 g/dL (3.5-5.0); Alkaline Phosphatase 129 U/L (39-117); Anion Gap 22 (12-20); Aspartate Amino Transferase 812 U/L (5-37); Bilirubin Total 1.3 mg/dL (0.0-1.0); Blood Urea Nitrogen 81 mg/dL (9-16); Calcium 7.6 mg/dL (8.4-10.2); Carbon Dioxide 22 mmol/L (22-29); Chloride 95 mmol/L (96-108); Estimated Glomerular Filt Rate 24; Glucose Random 194 mg/dL (60-115); Magnesium 1.8 mg/dL (1.6-2.6); Phosphorus 4.9 mg/dL (2.7-4.5); Potassium 3.9 mmol/L (3.3-5.1); Sodium 135 mmol/L (135-145); Total Protein 4.6 g/dL (6.5-8.0)
[2022-07-26 05:59] LABS: Lactic Acid 7.6 mmol/L (0.5-2.0)
[2022-07-26 06:05] LABS: SLIDE REVIEW VERIFIED; Troponin-I High Sensitivity > 3600.0 ng/L (<3.5-35.0)
[2022-07-26] MEDS: Insulin Lispro 100 UNIT/ML 3 ML VIAL SUBCUT (06:05)
[2022-07-26] MEDS: Pantoprazole Sodium 80 MG in 0.9 % Sodium Chloride 80 ML 10 MG IV ×2 (06:06→14:05)
[2022-07-26 06:13] LABS: Glucose, Whole Blood 177 mg/dL (60-115)
[2022-07-26 06:23] LABS: B Type Natriuretic Peptide 10291 pg/mL (<100)
[2022-07-26 07:30] LABS: Reflex Lactate? Lactic Acid Added
[2022-07-26 08:08] LABS: ~Lactic Acid-LAB USE ONLY 6.8 mmol/L (0.5-2.0)
[2022-07-26] MEDS: Chlorhexidine Gluc Oral Rinse 15 ML MOUTHWASH BUCCAL ×3 (08:10→21:30)
[2022-07-26] MEDS: Albumin Human 25 % 100 ML IV ×3 (08:10→11:13)
[2022-07-26 09:41] LABS: Cancel Lactic Acid Canceled
[2022-07-26] MEDS: Esmolol HCl/NaCl Iso 2,500 MG/250 ML IV.SOLN 14.18 MG IVCONT (10:21)
[2022-07-26] MEDS: Magnesium Sulfate/D5W 1 GM/100 ML PIGGYBACK IV (10:22)
--- NOTE | 2022-07-26 10:24 | MHC.CLN ---
F/U: PT REMAINS INTUBATED CURRENTLY NPO DISCUSSED AT ROUNDS WITH MD; PLAN TO POSSIBLY PLACE KAOFEED TUBE TODAY AND START TF NEPRO AT MAX GOAL RATE 10ML/HR TO PROVIDE 432KCALS, 19G PROTEIN, 174ML FREE WATER REVIEWED LABS; PROCEED WITH PPN DISCUSSED WITH PHARMACY RECOMMEND CONTINUING D104.25 AT 30ML/HR TO PROVIDE 367KCALS, 31G PROTEIN REPLETE LYTES NEEDED HD DAILY TO START PER MD
[2022-07-26] MEDS: Digoxin 0.5 MG/2 ML AMPUL 0.25 MG IVPUSH ×2 (10:29→17:20)
--- NOTE | 2022-07-26 10:52 | W.PM.DNNEP ---
Subjective Subjective This patient was seen during dialysis. Interval history: Mr. Andujar was admitted to the ICU on 07/24/2022 after PEA arrest on the floor. The patient is a 67-year-old gentleman with underlying diabetes mellitus, CKD and ischemic heart failure, SP CABG about 8-10 years ago, followed by ICD placement.? Over last year or so, EF was reportedly about 40%.? 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 But according to his family, the patient was in good and fairly active general health, living on his own, [place] [employer] [place], even playing golf, until March of this year when he developed what sounds like progressive anasarca, with his legs ballooning to the size of logs and he could barely walk.? The diuretics no longer worked. He was admitted to [facility] for edema management in March.? Everything went downhill from there, and he was started on HD.? At some point he developed a decubitus ulcer.? He spent approximately 3 weeks at [facility] and was then transferred to [facility] for rehab. ?After 3 weeks at [facility], he was admitted to [facility] for management of sepsis from the Decubitus ulcer.? Then went back to [facility] and since then, been back at [facility] and [facility] for further management of sepsis, the decubitus, and renal failure, including two surgeries for the decubitus, including a diverting colostomy done approximately about 8 weeks ago at [facility]. Currently PMHx additionally includes ESRD on hemodialysis, protein calorie malnutrition, coronary artery disease status post CABG, ischemic cardiomyopathy with EF of 40-45%, status post AICD, PAfib, osteomyelitis of stage IV sacral decubitus ulcer, discoid lupus, and diverting colostomy. On 07/11/2022, he was BIB[place] to [facility] after developing chest pain. There was no evidence of ACS. He was admitted to the medical floor for stage IV decubitus ulcer/osteomyelitis meeting sepsis criteria and ESRD, and given empiric abx. ?His hospital course since then had been relatively stable, and his discharge was being planned.? He'd had a chronic leukocytosis over the last few months secondary to the osteomyelitis; his WBC remained elevated despite completing a prior course of IV antibiotics.? Most recently Dr. Stein recommended IV meropenem and PO zyvox for 6 weeks. He's been followed by surgery s/p debridement; preventative measures in place with frequent turning, and appropriate bed. TPN was initiated to promote wound healing. ?He was continued on his T-Th-Sat HD schedule. Due to vomiting, he had an xray that showed dilated stomach but no evidence of bowel obstruction. That clinically seems to have resolved. He had intermittent tachycardia and paroxysmal AFIB controlled with Metoprolol 25mg tid. Yesterday morning, the bicarb level on his routine morning labs was low.? A lactate level was checked and came back very high. ?While the patient was being evaluated he went into a PEA arrest at approximately 13:00.? CPR and ACLS administered.? He was never shocked.? He had ROSC after four rounds of epinephrine. ?The duration of CPR was approximately 16 minutes. ?He was intubated during the CPR and transferred to intensive care unit. He did show signs of awakening after CPR and required sedation.? NGT placement after tx to ICU showed blood. Hb was 3.5 (c/w 8.1 one week prior). He was vol resusc with blood and crystalloid. Thru the nite last night he required Levophed and his lactates remained elevated in the 15 range. On my exam this morning, he was sedated,but responded to painful stimuli. Afebrile.? This afternoon, after propofol was turned off, he had consistent eye opening to verbal stimulation, altho remains otherwise unresponsive.? HR 116 in AFib.on a Diltiazem gtt.? BP 111/71 on Levophed 0.23ug. SpO2 100% on Vent, AC 18/450/40/+5 No JVD at 30?.? Crackles at bases? ?The abdomen is mildly rotund, not distended. ?The ostomy bag is half full of red/brown liquid with an edematous prolapse of the loop colostomy.? He has gross anasarca from the waist down. ?13 cm stage IV obviously chronic decubitus ulcer of the sacrum. LABORATORY DATA: ?Below.? Notable for WBC 31.7, Hgb 8.0 (s/p transfusion of 4u RBC, 7u FFP, 1 bag plat) Plat 75K, PT/INR 27.1/2.3, Lactate 14.0 at noon today, BUN/Creat 76/2.5, BNP 88796. ?Transaminases mod elevated.? Last VBG at 6pm showed 7.37/28/-7.? He remains on a bicarb drip.. ECHOCARDIOGRAM this mornin. Mildly dilated LV with significantly reduced LV EF 10-15% with RWMAs consistent with ischemic cardiomyopathy. 2. Mildly dilated RV with moderate RV systolic dysfunction. 3. Mildly dilated LA. 4. Mild MR. 5. Moderate TR.? CWD measured 2.69m/sec (gradient 29mm). 6. Mod dilated IVC with no insp collapse.? Estimated RVSP 44mm. EGD this afternoon by Dr. Pineda. Findings:? Erosive esophagitis; a 1.5cm area of superficial ulceration covered with a clot (without bleeding) along the lesser curve of the stomach, likely due to NG tube trauma; multiple chronic appearing 4-5 mm ulcers in the duodenal bulb; a 2 cm non-bleeding ulcer with yellow exudate at the base of the duodenal bulb with a visible vessel - one hemoclip was applied; normal descending duodenum.? No blood or active bleeding seen in the UGI tract during EGD and no biopsies were obtained. IMPRESSION: 1. Underlying ESRD on HD with refractory anasarca.? Will need daily dialysis (not just T-Th-Sat). 2. Underlying systolic ischemic CMOP. 3. Chronic large stage 4 sacral decubitus with chronic osteomyelitis, s/p diverting sigmoid loop colostomy. Will debride at the bedside tomorrow. 4. S/p Cardiac arrest -- PEA arrest, 2? UGI bleed.? Likely never had full cessation of spont circulation, judging by his rapid return of mental status after 16 min of CPR.? Ischemic CMOP is markedly worsened compared w prior report.? We'll have to see what the outcome of this is, but it might make subsequent HD more unstable, and might make removing fluid more difficult. 5. Cardiogenic shock w shock liver.? No trop or EKG evidence so far of ACS, but his EF is considerably worse this morning. ?Repeat trop is pending. 6. Metabolic/lactic acidosis.? 2? cardiogenic shock, hepatic failure, and renal failure.? I don't think we need to invoke ischemic bowel, jalyn given that Levophed dose is coming down thru the day.? Continue bicarb gtt. 7. Acute Respiratory Failure. Intubated during the CPR. Continue ventilatory support. 8. S/P UGI bleed with hemorrhagic shock.? Continue high dose PPI.? Transfuse to Hgb > 9. 9. AFib w RVR.? Continuing diltiazem drip. 10. ID: Continue meropenam and vanco for osteomyelitis, per ID recs. 11. Diabetes mellitus. SS insulin per protocol. 12. Nutrition.? Continue TPN.? Try Kaofeed tube with trickle feeds tomorrow. Critical care time (including multiple extended family discussions; extended d/w Dr. Pierce, Dr. Moreno, Dr. Vidales, and Dr. Pineda, and extended chart rev):? 2.5+ hrs. Physical Exam Vital Signs: Vital Signs: Last Vital Signs Temp 97.2 F 07/26/22 10:24 Pulse 114 H 07/26/22 10:24 Resp 21 H 07/26/22 10:24 BP 99/54 L 07/26/22 10:24 Pulse Ox 98 07/26/22 10:00 O2 Del Method 07/26/22 10:00 O2 Flow Rate 2 07/24/22 12:13 FiO2 21 07/26/22 10:00 BMI result Body Mass Index 30.9 Const: General: ill appearing Orientation/consciousness: patient oriented x3 HEENT: Head: Yes normal to inspection Neck: Neck: Yes full ROM and Yes supple Resp: Auscultation: clear to auscultation bilaterally Cardio: Jugular venous distension: no JVD Heart sounds: no click, no murmurs and no rubs GI: Inspection: Yes other (Ostomy bag is present) Palpation (GI): Soft to palpation and nontender Auscultation: normal bowel sounds Neuro: General: patient oriented x3 Motor exam (neuro): no asterixis Assessment & Plan Assessment and plan (1) End stage renal disease: Status: Inactive Plan UF today to remove fluid as tolerated ESRD on HD Cardioresp arrest - Intubated Acute Met Acidosis - Lactic acidosis Dec Ulcer Regular HD TTS as out patient Followed? up with his cleaning and washing equipment operator - as out pt ?Hyponatremia Restrict free water intake to 1.2 L per 24 hrs Na normalized Anemia Epogen per protocol Time Spent With Patient Time: Total time spent is greater than 50% in coordination of care (as documented) at patient's floor/unit and/or counseling patient: Procedures Date of Service Date of Service: 07/26/22
[2022-07-26 11:45] LABS: Glucose, Whole Blood 143 mg/dL (60-115)
--- NOTE | 2022-07-26 14:05 | P.PNCC_ITS ---
Subjective Subjective Date of Service: 07/26/22 Interval History: Mr. Andujar was admitted to the ICU on 07/24/2022 after PEA arrest on the floor. The patient is a 67-year-old gentleman with underlying diabetes mellitus, CKD and ischemic heart failure, SP CABG about 8-10 years ago, followed by ICD placement.? Over last year or so, EF was reportedly about 40%.? His CKD was progressing and he had discussions with his potato chip frier ([facility]) about ultimately needing HD.? 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 The diuretics no longer worked. He was admitted to [facility] for edema management in March.? Everything went downhill from there, and he was started on HD.? At some point he developed a decubitus ulcer.? He spent approximately 3 weeks at [facility] and was then transferred to [facility] for rehab.? After 3 weeks at [facility], he was admitted to [facility] for management of sepsis from the Decubitus ulcer.? Then went back to [facility] and since then, been back at [facility] and [facility] for further management of sepsis, the decubitus, and renal failure, including two surgeries for the decubitus, including a diverting colostomy done approximately about 8 weeks ago at [facility]. Currently PMHx additionally includes ESRD on hemodialysis, protein calorie malnutrition, coronary artery disease status post CABG, ischemic cardiomyopathy with EF of 40-45%, status post AICD, PAfib, osteomyelitis of stage IV sacral decubitus ulcer, discoid lupus, and diverting colostomy. On 07/11/2022, he was BIBA to [facility] after developing chest pain. There was no evidence of ACS. He was admitted to the medical floor for stage IV decubitus ulcer/osteomyelitis meeting sepsis criteria and ESRD, and given empiric abx.? His hospital course since then had been relatively stable, and his discharge was being planned.? He'd had a chronic leukocytosis over the last few months secondary to the osteomyelitis; his WBC remained elevated despite completing a prior course of IV antibiotics.? Most recently Dr. Stein recommended IV meropenem and PO zyvox for 6 weeks. He'd been followed by surgery s/p debridement; preventative measures in place with frequent turning, and appropriate bed. TPN was initiated to promote wound healing.? He was continued on his T--Mon HD schedule. Due to vomiting, he had an xray that showed dilated stomach but no evidence of bowel obstruction. That clinically seems to have resolved. He had intermittent tachycardia and paroxysmal AFIB controlled with Metoprolol 25mg tid. On Jul 24, the bicarb level on his routine morning labs was low.? A lactate level was checked and came back very high.? While the patient was being evaluated he went into a PEA arrest.? CPR and ACLS administered.? He had ROSC after four rounds of epinephrine.? No shocks were required.? The duration of CPR was approximately 16 minutes.? He was intubated during the CPR and transferred t o intensive care unit. He did show signs of awakening after CPR and required sedation.? NGT placement after tx to ICU showed blood.? Hb was 3.5 (c/w 8.1 one week prior).? He was vol resusc with blood and crystalloid.? Thru that nite he required Levophed and a bicarb drip and his lactates remained elevated in the 15 range. Thru the day yesterday, he had a persistent metabolic and lactic acidoses in the 14 range, which began to improve in the evening.? His levophed requirement came down slowly and after propofol was turned off he had consistent eye opening to command.? FiO2 was down to 30%. Propofol has been off since yest afternoon.? On my exam today, he readily opens eyes to command, noticeably more expressively than yesterday.? He inconsistently turns his head to voice and squeezes a hand.? . HR 89, AFib.on an Esmolol at 20ug.? BP 114/66 on Levophed 0.36ug. ?At onset of HD, BP dropped into 70's, requiring increased Levophed to 0.45ug.? He was also given albumin and 1 unit RBCs.? On AC 14/450/21/+5, RR is 14-20, Sat 100%.? Afebrile.? ?No JVD at 30?.? Coarse BS thruout.? Irreg rhythm.? No murmurs or gallops.? The abdomen is mildly rotund, not distended.? The ostomy bag is half full of red/brown liquid with an edematous prolapse of the loop colostomy.? He has gross anasarca from the neck down.? 13 cm stage IV obviously chronic decubitus ulcer of the sacrum.? We debrided it the bedside today w Dr. Vidales.? The wound is mostly bone, very little debrideable tissue.? No gross infection.? I didn't smell any odor. LABORATORY DATA:? Below.? Notable for WBC 19.7 (down from 31.7 yesterday), Hgb 8.8 (s/p transfusion of 5u RBC, 7u FFP, 1 bag plat) Plat 52K (down from 75K yesterday), PT/INR 26.1/2.2, Lactate down to 6.8, BUN/Creat 81/2.7(with daily HD). VBG this morning showed 7.43/31/-2.1. . My bedside ECHOCARDIOGRAM this mornin. Mild-moderatetly dilated LV with severe global hypokinesis, with marked RWMA.? Septum and apex akinetic.? Free wall barely more than a wiggle.? EF 10-15% at most. 2. Mildly dilated RV with moderate RV systolic dysfunction. 3. Trace MR. 4. 4+ TR.? CWD measured 3.0m/sec (gradient 36).? (Did not assess IVC this morning.) EGD yesterday:? Erosive esophagitis; a 1.5cm area of superficial ulceration covered with a clot (without bleeding) along the lesser curve of the stomach, likely due to NG tube trauma; multiple chronic appearing 4-5 mm ulcers in the duodenal bulb; a 2 cm non-bleeding ulcer with yellow exudate at the base of the duodenal bulb with a visible vessel - one hemoclip was applied; normal descending duodenum.? No blood or active bleeding seen in the UGI tract during EGD and no biopsies were obtained. IMPRESSION: 1. Underlying ESRD on HD with refractory anasarca.? As expected the beginning of his HD session had marked hemod instability.? Will do daily dialysis this week.? As 2. Underlying systolic ischemic CMOP. 3. Chronic large stage 4 sacral decubitus with chronic osteomyelitis, s/p d iverting sigmoid loop colostomy. Debrided at bedside by Dr. Vidales. ?Woundvac is probably next step. 4. S/p Cardiac arrest -- PEA arrest, 2? UGI bleed.? Likely never had full cessation of spont circulation, judging by his rapid return of mental status after 16 min of CPR.? Ischemic CMOP is markedly worsened compared w prior report.? Making HD more difficult. 5. Cardiogenic shock w shock liver.? EKG showed no evidence of acute ischemia, but he has lost anterior R waves, repeat trops are > 3600, and his EF is considerably worse. Started on Lipitor 80mg? Tried beta willow but he was too unstable.? No anticoagulation or ASA bec of GI bleed. 6. Lactic acidosis.? 2? cardiogenic shock, hepatic failure, and renal failure.? Steadily improving. 7. Metabolic acidosis.? Same etiologies.?? Resolved.? Off the bicarb drip. 8. Acute Respiratory Failure. Intubated during the CPR. Oxgenation is perfect.? Continue ventilatory support. 9. S/P UGI bleed with hemorrhagic shock.? Continue high dose PPI.? Transfused to HB > 9. Procrit. 10. Coagulopathy. ?2? hepatic failure.? Vit K 50 mg total given. ?Recheck INR in AM. 11.. AFib w RVR.? D/C Esmolol drip, change to amiodarone.? Digoxin load.? Check dig level in AM. 12. ID: Continue meropenam and vanco for osteomyelitis, per ID recs. 13. Hypomagnesemia. Replete. 14. Diabetes mellitus. SS insulin per protocol.15. Nutrition.? Continue TPN.? Start Kaofeed tube placed without difficulty via left nares. Position checked by xray. Begin trickle feeds. Critical Care Time (minutes): 90 Physical Exam Vital Signs: Vital Signs: Last Vital Signs Temp 97.2 F 07/26/22 12:00 Pulse 89 07/26/22 12:00 Resp 23 H 07/26/22 12:00 BP 114/66 07/26/22 12:00 Pulse Ox 100 07/26/22 12:00 O2 Del Method 07/26/22 12:00 O2 Flow Rate 2 07/24/22 12:13 FiO2 21 07/26/22 12:10 BMI result Body Mass Index 30.9 Objective Data Labs CBC & Chem 7: 07/26/22 05:05 07/26/22 05:05 Labs: Laboratory Results - last 24 hr 07/25/22 07/25/22 07/25/22 15:17 15:17 16:59 WBC RBC Hgb 8.0 L Hct 23.8 L MCV MCH MCHC RDW Plt Count MPV Immature Gran % (Auto) Neut % (Auto) Lymph % (Auto) Aiken % (Auto) Eos % (Auto) Baso % (Auto) Lymph # (Auto) Aiken # (Auto) Eos # (Auto) Baso # (Auto) Abs Immat Gran (auto) Absolute Neuts (auto) Absolute Nucleated RBC Nucleated RBC % (auto) Smear Tech's Comments PT 27.1 H INR 2.3 H VBG pH VBG pCO2 VBG pO2 VBG HCO3 VBG O2 Saturation VBG Base Excess Sodium Potassium Chloride Carbon Dioxide Anion Gap BUN Creatinine Estim Creat Clear Calc Estimated GFR POC Glucose Random Glucose Lactic Acid Lactic Acid F/U @ 2Hr Calcium Phosphorus Magnesium Total Bilirubin AST ALT Alkaline Phosphatase Troponin I High Sens C-Reactive Protein B-Natriuretic Peptide Total Protein Albumin Blood Type A Positive Antibody Screen NEGATIVE Crossmatch See Detail 07/25/22 07/25/22 07/25/22 17:49 18:44 18:45 WBC RBC Hgb Hct MCV MCH MCHC RDW Plt Count MPV Immature Gran % (Auto) Neut % (Auto) Lymph % (Auto) Aiken % (Auto) Eos % (Auto) Baso % (Auto) Lymph # (Auto) Aiken # (Auto) Eos # (Auto) Baso # (Auto) Abs Immat Gran (auto) Absolute Neuts (auto) Absolute Nucleated RBC Nucleated RBC % (auto) Smear Tech's Comments PT INR VBG pH VBG pCO2 VBG pO2 VBG HCO3 VBG O2 Saturation VBG Base Excess Sodium Potassium Chloride Carbon Dioxide Anion Gap BUN Creatinine Estim Creat Clear Calc Estimated GFR POC Glucose 123 H Random Glucose Lactic Acid 11.8 H* Lactic Acid F/U @ 2Hr Calcium Phosphorus Magnesium Total Bilirubin AST ALT Alkaline Phosphatase Troponin I High Sens > 3600.0 H* D C-Reactive Protein B-Natriuretic Peptide Total Protein Albumin Blood Type Antibody Screen Crossmatch 07/25/22 07/25/22 07/26/22 18:53 23:42 00:32 WBC RBC Hgb 8.9 L Hct 25.2 L MCV MCH MCHC RDW Plt Count MPV Immature Gran % (Auto) Neut % (Auto) Lymph % (Auto) Aiken % (Auto) Eos % (Auto) Baso % (Auto) Lymph # (Auto) Aiken # (Auto) Eos # (Auto) Baso # (Auto) Abs Immat Gran (auto) Absolute Neuts (auto) Absolute Nucleated RBC Nucleated RBC % (auto) Smear Tech's Comments PT INR VBG pH 7.37 VBG pCO2 28 VBG pO2 92 VBG HCO3 16 L VBG O2 Saturation 99.0 VBG Base Excess -7.5 Sodium Potassium Chloride Carbon Dioxide Anion Gap BUN Creatinine Estim Creat Clear Calc Estimated GFR POC Glucose 166 H Random Glucose Lactic Acid Lactic Acid F/U @ 2Hr Calcium Phosphorus Magnesium Total Bilirubin AST ALT Alkaline Phosphatase Troponin I High Sens C-Reactive Protein B-Natriuretic Peptide Total Protein Albumin Blood Type Antibody Screen Crossmatch 07/26/22 07/26/22 07/26/22 00:32 00:32 00:39 WBC RBC Hgb Hct MCV MCH MCHC RDW Plt Count MPV Immature Gran % (Auto) Neut % (Auto) Lymph % (Auto) Aiken % (Auto) Eos % (Auto) Baso % (Auto) Lymph # (Auto) Aiken # (Auto) Eos # (Auto) Baso # (Auto) Abs Immat Gran (auto) Absolute Neuts (auto) Absolute Nucleated RBC Nucleated RBC % (auto) Smear Tech's Comments PT INR VBG pH 7.43 VBG pCO2 29 VBG pO2 46 VBG HCO3 20 L VBG O2 Saturation 78.0 VBG Base Excess -3.1 Sodium Potassium Chloride Carbon Dioxide Anion Gap BUN Creatinine Estim Creat Clear Calc Estimated GFR POC Glucose Random Glucose Lactic Acid 9.2 H* Lactic Acid F/U @ 2Hr Calcium Phosphorus Magnesium Total Bilirubin AST ALT Alkaline Phosphatase Troponin I High Sens C-Reactive Protein 10.96 H B-Natriuretic Peptide Total Protein Albumin Blood Type Antibody Screen Crossmatch 07/26/22 07/26/22 07/26/22 05:05 05:05 05:05 WBC 19.1 H RBC 3.01 L Hgb 8.8 L Hct 25.6 L MCV 85.0 D MCH 29.2 MCHC 34.4 RDW 17.2 H Plt Count 52 L D MPV 11.9 Immature Gran % (Auto) 1.0 H Neut % (Auto) 92.1 H Lymph % (Auto) 2.6 L Aiken % (Auto) 4.0 Eos % (Auto) 0.1 Baso % (Auto) 0.2 Lymph # (Auto) 0.5 L Aiken # (Auto) 0.8 Eos # (Auto) 0.0 Baso # (Auto) 0.0 Abs Immat Gran (auto) 0.19 H Absolute Neuts (auto) 17.6 H Absolute Nucleated RBC 0.040 H Nucleated RBC % (auto) 0.2 Smear Tech's Comments VERIFIED PT 26.1 H INR 2.2 H VBG pH VBG pCO2 VBG pO2 VBG HCO3 VBG O2 Saturation VBG Base Excess Sodium 135 Potassium 3.9 Chloride 95 L Carbon Dioxide 22 Anion Gap 22 H BUN 81 H Creatinine 2.70 H Estim Creat Clear Calc 33.0 Estimated GFR 24 POC Glucose Random Glucose 194 H Lactic Acid Lactic Acid F/U @ 2Hr Calcium 7.6 L Phosphorus 4.9 H Magnesium 1.8 Total Bilirubin 1.3 H AST 812 H ALT 632 H Alkaline Phosphatase 129 H Troponin I High Sens C-Reactive Protein B-Natriuretic Peptide Total Protein 4.6 L Albumin 2.4 L Blood Type Antibody Screen Crossmatch 07/26/22 07/26/22 07/26/22 05:05 05:05 05:05 WBC RBC Hgb Hct MCV MCH MCHC RDW Plt Count MPV Immature Gran % (Auto) Neut % (Auto) Lymph % (Auto) Aiken % (Auto) Eos % (Auto) Baso % (Auto) Lymph # (Auto) Aiken # (Auto) Eos # (Auto) Baso # (Auto) Abs Immat Gran (auto) Absolute Neuts (auto) Absolute Nucleated RBC Nucleated RBC % (auto) Smear Tech's Comments PT INR VBG pH VBG pCO2 VBG pO2 VBG HCO3 VBG O2 Saturation VBG Base Excess Sodium Potassium Chloride Carbon Dioxide Anion Gap BUN Creatinine Estim Creat Clear Calc Estimated GFR POC Glucose Random Glucose Lactic Acid 7.6 H* Lactic Acid F/U @ 2Hr Calcium Phosphorus Magnesium Total Bilirubin AST ALT Alkaline Phosphatase Troponin I High Sens > 3600.0 H* C-Reactive Protein B-Natriuretic Peptide 03949 H Total Protein Albumin Blood Type Antibody Screen Crossmatch 07/26/22 07/26/22 07/26/22 05:07 06:01 07:39 WBC RBC Hgb Hct MCV MCH MCHC RDW Plt Count MPV Immature Gran % (Auto) Neut % (Auto) Lymph % (Auto) Aiken % (Auto) Eos % (Auto) Baso % (Auto) Lymph # (Auto) Aiken # (Auto) Eos # (Auto) Baso # (Auto) Abs Immat Gran (auto) Absolute Neuts (auto) Absolute Nucleated RBC Nucleated RBC % (auto) Smear Tech's Comments PT INR VBG pH 7.43 VBG pCO2 31 VBG pO2 40 VBG HCO3 21 L VBG O2 Saturation 67.0 VBG Base Excess -2.1 Sodium Potassium Chloride Carbon Dioxide Anion Gap BUN Creatinine Estim Creat Clear Calc Estimated GFR POC Glucose 177 H Random Glucose Lactic Acid Lactic Acid F/U @ 2Hr 6.8 H* Calcium Phosphorus Magnesium Total Bilirubin AST ALT Alkaline Phosphatase Troponin I High Sens C-Reactive Protein B-Natriuretic Peptide Total Protein Albumin Blood Type Antibody Screen Crossmatch 07/26/22 11:42 WBC RBC Hgb Hct MCV MCH MCHC RDW Plt Count MPV Immature Gran % (Auto) Neut % (Auto) Lymph % (Auto) Aiken % (Auto) Eos % (Auto) Baso % (Auto) Lymph # (Auto) Aiken # (Auto) Eos # (Auto) Baso # (Auto) Abs Immat Gran (auto) Absolute Neuts (auto) Absolute Nucleated RBC Nucleated RBC % (auto) Smear Tech's Comments PT INR VBG pH VBG pCO2 VBG pO2 VBG HCO3 VBG O2 Saturation VBG Base Excess Sodium Potassium Chloride Carbon Dioxide Anion Gap BUN Creatinine Estim Creat Clear Calc Estimated GFR POC Glucose 143 H Random Glucose Lactic Acid Lactic Acid F/U @ 2Hr Calcium Phosphorus Magnesium Total Bilirubin AST ALT Alkaline Phosphatase Troponin I High Sens C-Reactive Protein B-Natriuretic Peptide Total Protein Albumin Blood Type Antibody Screen Crossmatch Microbiology Microbiology Results: Microbiology 07/11/22 06:35 Blood - Arterial Line Blood Culture - Final No growth after 5 days. 07/11/22 06:35 Blood - Arterial Line Blood Culture - Final No growth after 5 days. Quality Stroke Does the patient have a stroke diagnosis?: No VTE Prior VTE?: No VTE Risk Level:: Medical - moderate - high VTE Device Contraindication: Treatment Not Indicated VTE Drug Contraindication: Treatment Not Indicated (contraindicated; UGI bleed) Critical Care Time Critical Care Time (minutes): 90
[2022-07-26] MEDS: propofoL 200 MG/20 ML VIAL 20 MG IVPUSH (14:16)
[2022-07-26] MEDS: Ketamine HCl/NS 100 MG/10 ML SYRINGE 30 MG IVPUSH (14:16)
--- NOTE | 2022-07-26 15:03 | PM.PNGS ---
Subjective Subjective Date of Service: 07/26/22 Interval history: remains on ventilator significant anasarca no changes in status overall Physical Exam Vital Signs: Vital Signs: Last Vital Signs Temp 98.1 F 07/26/22 14:00 Pulse 82 07/26/22 14:08 Resp 23 H 07/26/22 14:00 BP 113/70 07/26/22 14:34 Pulse Ox 99 07/26/22 14:00 O2 Del Method 07/26/22 14:00 O2 Flow Rate 2 07/24/22 12:13 FiO2 21 07/26/22 14:00 BMI result Body Mass Index 30.9 Const: Other: on ventilato Resp: Other: on ventilator, anasarcous Cardio: Rate: tachycardic GI: Other: soft, stoma very edematous but viable Back/Spine/Pelvis: Other: large sacral decub ulcer - generally clean, with good granulation, but bony surface exposed, no ongoing gangrene, no pus, fibrinous coating noted Extrem: Other: both extremities with signficant edema Objective Data Active Medications Atorvastatin Calcium (Atorvastatin Calcium 80 Mg Tablet) 80 mg PO DAILY [facility] Last Admin: 07/26/22 12:27 Dose: Not Given Documented By: LEONEL Non-Admin Reason: NPO Chlorhexidine Gluconate (Chlorhexidine Gluc Oral Rinse 15 Ml Mouthwash) 15 ml BUCCAL TID [facility] Last Admin: 07/26/22 14:03 Dose: 15 ml Documented By: RUBEN Meropenem 500 mg/ Sodium (Chloride) 50 mls @ 100 mls/hr IV Q24H [facility] Stop: 08/23/22 23:29 Last Infusion: 07/25/22 23:46 Dose: 0 mls/hr Documented By: CEM Propofol (Diprivan) 1,000 mg in 100 mls @ 0 mls/hr IVCONT .Q0M [facility]; Protocol Last Titration: 07/25/22 18:18 Dose: 0 mcg/kg/min, 0 mls/hr Documented By: RUBEN Fentanyl (Sublimaze/Ns) 1,000 mcg in 100 mls @ 0 mls/hr IVCONT .Q0M [facility]; Protocol Last Titration: 07/26/22 10:15 Dose: 25 mcg/hr, 2.5 mls/hr Documented By: LEONEL Pantoprazole Sodium 80 mg/ (Sodium Chloride) 100 mls @ 10 mls/hr IV .Q10H [facility] Last Admin: 07/26/22 14:05 Dose: 8 mg/hr, 10 mls/hr Documented By: RUBEN Norepinephrine Bitartrate (Levophed) 8 mg in 250 mls @ 0 mls/hr IVCONT .Q0M [facility]; Protocol Last Titration: 07/26/22 14:34 Dose: 0.28 mcg/kg/min, 50.4 mls/hr Documented By: RUBEN Magnesium Sulfate 5 meq/Calcium Gluconate 4.65 meq/Multivitamins 14 ml/ Trace Metals 1.4 ml/ Amino Acids/Electrolytes/Dextrose 720 mls @ 30 mls/hr IVCONT DAILY@1800 [facility] Stop: 07/26/22 17:59 Last Admin: 07/25/22 17:41 Dose: 30 mls/hr Documented By: LEONEL Vancomycin HCl 500 mg/ Sodium (Chloride) 110 mls @ 110 mls/hr IV ONCE ONE Stop: 07/26/22 18:59 Esmolol HCl (Brevibloc/Nacl) 2,500 mg in 250 mls @ 0 mls/hr IVCONT .Q0M [facility]; Protocol Last Admin: 07/26/22 10:21 Dose: 20 mcg/kg/min, 14.18 mls/hr Documented By: LEONEL Multivitamins 14 ml/ Trace Metals 1.4 ml/ Amino Acids/Electrolytes/Dextrose 720 mls @ 30 mls/hr IVCONT DAILY@1800 [facility] Stop: 07/27/22 17:59 Insulin Human Lispro (Insulin Lispro 100 Unit/Ml 3 Ml Vial) 0 unit SUBCUT Q6H [facility]; Protocol Last Admin: 07/26/22 11:54 Dose: Not Given Documented By: LEONEL Non-Admin Reason: No Insulin Coverage Linezolid (Linezolid 600 Mg Tablet) 600 mg PO Q12H [facility] Last Admin: 07/24/22 14:13 Dose: Not Given Documented By: NAYA Non-Admin Reason: Nausea Pharmacy Consult (Consult Rx Perform Med Rec) 1 each MISCELLANE ONCE PRN PRN Reason: Consult order Sodium Chloride (0.9 % Sodium Chloride Flush 3 Ml Syringe) 3 ml IVFLUSH QSHIFT [facility] Last Admin: 07/26/22 14:02 Dose: Not Given Documented By: RUBEN Non-Admin Reason: IV Running Labs CBC & Chem 7: 07/26/22 05:05 07/26/22 05:05 Labs: Laboratory Results - last 24 hr 07/25/22 07/25/22 07/25/22 15:17 16:59 17:49 MCV MCH MCHC RDW Plt Count MPV Immature Gran % (Auto) Neut % (Auto) Lymph % (Auto) [place] % (Auto) Eos % (Auto) Baso % (Auto) Lymph # (Auto) [place] # (Auto) Eos # (Auto) Baso # (Auto) Abs Immat Gran (auto) Absolute Neuts (auto) Absolute Nucleated RBC Nucleated RBC % (auto) Smear Tech's Comments PT 27.1 H INR 2.3 H VBG pH VBG pCO2 VBG pO2 VBG HCO3 VBG O2 Saturation VBG Base Excess Anion Gap Estim Creat Clear Calc Estimated GFR POC Glucose 123 H Random Glucose Lactic Acid Lactic Acid F/U @ 2Hr Calcium Phosphorus Magnesium Total Bilirubin AST ALT Alkaline Phosphatase Troponin I High Sens C-Reactive Protein B-Natriuretic Peptide Total Protein Albumin Blood Type A Positive Antibody Screen NEGATIVE Crossmatch See Detail 07/25/22 07/25/22 07/25/22 18:44 18:45 18:53 MCV MCH MCHC RDW Plt Count MPV Immature Gran % (Auto) Neut % (Auto) Lymph % (Auto) [place] % (Auto) Eos % (Auto) Baso % (Auto) Lymph # (Auto) [place] # (Auto) Eos # (Auto) Baso # (Auto) Abs Immat Gran (auto) Absolute Neuts (auto) Absolute Nucleated RBC Nucleated RBC % (auto) Smear Tech's Comments PT INR VBG pH 7.37 VBG pCO2 28 VBG pO2 92 VBG HCO3 16 L VBG O2 Saturation 99.0 VBG Base Excess -7.5 Anion Gap Estim Creat Clear Calc Estimated GFR POC Glucose Random Glucose Lactic Acid 11.8 H* Lactic Acid F/U @ 2Hr Calcium Phosphorus Magnesium Total Bilirubin AST ALT Alkaline Phosphatase Troponin I High Sens > 3600.0 H* D C-Reactive Protein B-Natriuretic Peptide Total Protein Albumin Blood Type Antibody Screen Crossmatch 07/25/22 07/26/22 07/26/22 23:42 00:32 00:32 MCV MCH MCHC RDW Plt Count MPV Immature Gran % (Auto) Neut % (Auto) Lymph % (Auto) [place] % (Auto) Eos % (Auto) Baso % (Auto) Lymph # (Auto) [place] # (Auto) Eos # (Auto) Baso # (Auto) Abs Immat Gran (auto) Absolute Neuts (auto) Absolute Nucleated RBC Nucleated RBC % (auto) Smear Tech's Comments PT INR VBG pH VBG pCO2 VBG pO2 VBG HCO3 VBG O2 Saturation VBG Base Excess Anion Gap Estim Creat Clear Calc Estimated GFR POC Glucose 166 H Random Glucose Lactic Acid 9.2 H* Lactic Acid F/U @ 2Hr Calcium Phosphorus Magnesium Total Bilirubin AST ALT Alkaline Phosphatase Troponin I High Sens C-Reactive Protein 10.96 H B-Natriuretic Peptide Total Protein Albumin Blood Type Antibody Screen Crossmatch 07/26/22 07/26/22 07/26/22 00:39 05:05 05:05 MCV 85.0 D MCH 29.2 MCHC 34.4 RDW 17.2 H Plt Count 52 L D MPV 11.9 Immature Gran % (Auto) 1.0 H Neut % (Auto) 92.1 H Lymph % (Auto) 2.6 L [place] % (Auto) 4.0 Eos % (Auto) 0.1 Baso % (Auto) 0.2 Lymph # (Auto) 0.5 L [place] # (Auto) 0.8 Eos # (Auto) 0.0 Baso # (Auto) 0.0 Abs Immat Gran (auto) 0.19 H Absolute Neuts (auto) 17.6 H Absolute Nucleated RBC 0.040 H Nucleated RBC % (auto) 0.2 Smear Tech's Comments VERIFIED PT 26.1 H INR 2.2 H VBG pH 7.43 VBG pCO2 29 VBG pO2 46 VBG HCO3 20 L VBG O2 Saturation 78.0 VBG Base Excess -3.1 Anion Gap Estim Creat Clear Calc Estimated GFR POC Glucose Random Glucose Lactic Acid Lactic Acid F/U @ 2Hr Calcium Phosphorus Magnesium Total Bilirubin AST ALT Alkaline Phosphatase Troponin I High Sens C-Reactive Protein B-Natriuretic Peptide Total Protein Albumin Blood Type Antibody Screen Crossmatch 07/26/22 07/26/22 07/26/22 05:05 05:05 05:05 MCV MCH MCHC RDW Plt Count MPV Immature Gran % (Auto) Neut % (Auto) Lymph % (Auto) [place] % (Auto) Eos % (Auto) Baso % (Auto) Lymph # (Auto) [place] # (Auto) Eos # (Auto) Baso # (Auto) Abs Immat Gran (auto) Absolute Neuts (auto) Absolute Nucleated RBC Nucleated RBC % (auto) Smear Tech's Comments PT INR VBG pH VBG pCO2 VBG pO2 VBG HCO3 VBG O2 Saturation VBG Base Excess Anion Gap 22 H Estim Creat Clear Calc 33.0 Estimated GFR 24 POC Glucose Random Glucose 194 H Lactic Acid 7.6 H* Lactic Acid F/U @ 2Hr Calcium 7.6 L Phosphorus 4.9 H Magnesium 1.8 Total Bilirubin 1.3 H AST 812 H ALT 632 H Alkaline Phosphatase 129 H Troponin I High Sens > 3600.0 H* C-Reactive Protein B-Natriuretic Peptide Total Protein 4.6 L Albumin 2.4 L Blood Type Antibody Screen Crossmatch 07/26/22 07/26/22 07/26/22 05:05 05:07 06:01 MCV MCH MCHC RDW Plt Count MPV Immature Gran % (Auto) Neut % (Auto) Lymph % (Auto) [place] % (Auto) Eos % (Auto) Baso % (Auto) Lymph # (Auto) [place] # (Auto) Eos # (Auto) Baso # (Auto) Abs Immat Gran (auto) Absolute Neuts (auto) Absolute Nucleated RBC Nucleated RBC % (auto) Smear Tech's Comments PT INR VBG pH 7.43 VBG pCO2 31 VBG pO2 40 VBG HCO3 21 L VBG O2 Saturation 67.0 VBG Base Excess -2.1 Anion Gap Estim Creat Clear Calc Estimated GFR POC Glucose 177 H Random Glucose Lactic Acid Lactic Acid F/U @ 2Hr Calcium Phosphorus Magnesium Total Bilirubin AST ALT Alkaline Phosphatase Troponin I High Sens C-Reactive Protein B-Natriuretic Peptide 13299 H Total Protein Albumin Blood Type Antibody Screen Crossmatch 07/26/22 07/26/22 07:39 11:42 MCV MCH MCHC RDW Plt Count MPV Immature Gran % (Auto) Neut % (Auto) Lymph % (Auto) [place] % (Auto) Eos % (Auto) Baso % (Auto) Lymph # (Auto) [place] # (Auto) Eos # (Auto) Baso # (Auto) Abs Immat Gran (auto) Absolute Neuts (auto) Absolute Nucleated RBC Nucleated RBC % (auto) Smear Tech's Comments PT INR VBG pH VBG pCO2 VBG pO2 VBG HCO3 VBG O2 Saturation VBG Base Excess Anion Gap Estim Creat Clear Calc Estimated GFR POC Glucose 143 H Random Glucose Lactic Acid Lactic Acid F/U @ 2Hr 6.8 H* Calcium Phosphorus Magnesium Total Bilirubin AST ALT Alkaline Phosphatase Troponin I High Sens C-Reactive Protein B-Natriuretic Peptide Total Protein Albumin Blood Type Antibody Screen Crossmatch Procedures Date of Service Date of Service: 07/26/22 Progress Note: A&P Assessment and plan (1) Stage IV pressure ulcer of sacral region: Status: Acute Assessment and Plan: ulcer clean sharp excisional debridement done using Cannon scissors to remove thick fibrinous coating should be ready to have wound vac this week, although having bone exposed poses risk for nonhealing (2) Anasarca: Status: Acute Assessment and Plan: diffuse anasarca, including stoma dw family - 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
[2022-07-26 16:17] LABS: Vancomycin Random 12.9 mcg/mL (15-20)
[2022-07-26] MEDS: DOBUTamine HCL/D5W 500 MG/250 ML IV.SOLN 8.87 MG IVCONT (17:09)
[2022-07-26] MEDS: Amiodarone/Dextrose 150 MG/100 ML PLAST..BAG IV (17:09)
[2022-07-26] MEDS: vancomycin HCL 500 MG in 0.9 % Sodium Chloride 100 ML 110 MG IV (17:15)
[2022-07-26] MEDS: propofoL 200 MG/20 ML VIAL 30 MG IVPUSH (17:30)
--- NOTE | 2022-07-26 17:32 | PC.NURSE ---
Pt had dialysis 07:00-12:30. 1900 mL removed. 1 unit RBC administered. 10:29 Digoxin 0.25 mg IVP given 10:40 blood pressures decreased and MAP 53. MD to bedside, echo performed. 13:00 dressings changed to bilateral arms and legs 14:16 surgical MD to bedside for sacral wound debridement and dressing change. 30 mg ketamine and 20 mg propofol given by MD pre-procedure. 17:30 KO feeding tube placed by provider and MD. Patient started with loading dose of IV amiodarone to be followed by amiodarone gtt. Dobutmine gtt started. 17:35 0.25 mg IVP digoxin given. Patient repositioned Q2H, prevlon system utilized, air mattress utilized, Q2H mouth care provided.
[2022-07-26] MEDS: Amiodarone HCL 900 MG in 0.9 % Sodium Chloride 500 ML 34.53 MG IVCONT (17:42)
[2022-07-26 18:00] LABS: VBG Base Excess -2.2 mmol/L; VBG HCO3 22 mmol/L (22-26); VBG pCO2 35 mmHg; VBG pH 7.39 (7.32-7.43); VBG pO2 38 mmHg
--- NOTE | 2022-07-26 18:08 | P.PNCC_ITS ---
Subjective Subjective Date of Service: 07/26/22 Interval History: Mr. Mccurdy is in the ICU with cardiogenic shock following PEA arrest due to an UGI bleed. Echo shows EF about 10%. 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 Also d/w Dr. Castano. I was looking to transfer the patient to a tertiary heart failure center. [facility] not taking ICU patients. The patient is a cardiology patient at [facility], but I spoke with them at length and reji they have no beds. Lastly called [facility] and spoke with Dr. Lamont Williamson of the heart failure service ([phone]). We spoke at some length. They have beds but his concern is that Mr. Ramirez medical problems at this time preclude him being a candidate for an advanced device (e.g IABP). Dr. Williamson indicated that should his MS improve, he would be a more suitable candidate. He furthermore suggested trying low dose dobutamine to improve contractility. He suggested we should speak again tomorrow. Discussed all the above w family. Critical Care Time (minutes): 60 Physical Exam Vital Signs: Vital Signs: Last Vital Signs Temp 98.1 F 07/26/22 17:00 Pulse 112 H 07/26/22 17:00 Resp 12 07/26/22 17:00 BP 96/52 L 07/26/22 17:00 Pulse Ox 96 07/26/22 17:00 O2 Del Method 07/26/22 17:00 O2 Flow Rate 2 07/24/22 12:13 FiO2 21 07/26/22 17:00 BMI result Body Mass Index 30.9 Objective Data Labs CBC & Chem 7: 07/26/22 05:05 07/26/22 05:05 Labs: Laboratory Results - last 24 hr 07/25/22 07/25/22 07/25/22 16:59 18:44 18:45 WBC RBC Hgb Hct MCV MCH MCHC RDW Plt Count MPV Immature Gran % (Auto) Neut % (Auto) Lymph % (Auto) [place] % (Auto) Eos % (Auto) Baso % (Auto) Lymph # (Auto) [place] # (Auto) Eos # (Auto) Baso # (Auto) Abs Immat Gran (auto) Absolute Neuts (auto) Absolute Nucleated RBC Nucleated RBC % (auto) Smear Tech's Comments PT INR VBG pH VBG pCO2 VBG pO2 VBG HCO3 VBG O2 Saturation VBG Base Excess Sodium Potassium Chloride Carbon Dioxide Anion Gap BUN Creatinine Estim Creat Clear Calc Estimated GFR POC Glucose Random Glucose Lactic Acid 11.8 H* Lactic Acid F/U @ 2Hr Calcium Phosphorus Magnesium Total Bilirubin AST ALT Alkaline Phosphatase Troponin I High Sens > 3600.0 H* D C-Reactive Protein B-Natriuretic Peptide Total Protein Albumin Random Vancomycin Blood Type A Positive Antibody Screen NEGATIVE Crossmatch See Detail 07/25/22 07/25/22 07/26/22 18:53 23:42 00:32 WBC RBC Hgb 8.9 L Hct 25.2 L MCV MCH MCHC RDW Plt Count MPV Immature Gran % (Auto) Neut % (Auto) Lymph % (Auto) [place] % (Auto) Eos % (Auto) Baso % (Auto) Lymph # (Auto) [place] # (Auto) Eos # (Auto) Baso # (Auto) Abs Immat Gran (auto) Absolute Neuts (auto) Absolute Nucleated RBC Nucleated RBC % (auto) Smear Tech's Comments PT INR VBG pH 7.37 VBG pCO2 28 VBG pO2 92 VBG HCO3 16 L VBG O2 Saturation 99.0 VBG Base Excess -7.5 Sodium Potassium Chloride Carbon Dioxide Anion Gap BUN Creatinine Estim Creat Clear Calc Estimated GFR POC Glucose 166 H Random Glucose Lactic Acid Lactic Acid F/U @ 2Hr Calcium Phosphorus Magnesium Total Bilirubin AST ALT Alkaline Phosphatase Troponin I High Sens C-Reactive Protein B-Natriuretic Peptide Total Protein Albumin Random Vancomycin Blood Type Antibody Screen Crossmatch 07/26/22 07/26/22 07/26/22 00:32 00:32 00:39 WBC RBC Hgb Hct MCV MCH MCHC RDW Plt Count MPV Immature Gran % (Auto) Neut % (Auto) Lymph % (Auto) [place] % (Auto) Eos % (Auto) Baso % (Auto) Lymph # (Auto) [place] # (Auto) Eos # (Auto) Baso # (Auto) Abs Immat Gran (auto) Absolute Neuts (auto) Absolute Nucleated RBC Nucleated RBC % (auto) Smear Tech's Comments PT INR VBG pH 7.43 VBG pCO2 29 VBG pO2 46 VBG HCO3 20 L VBG O2 Saturation 78.0 VBG Base Excess -3.1 Sodium Potassium Chloride Carbon Dioxide Anion Gap BUN Creatinine Estim Creat Clear Calc Estimated GFR POC Glucose Random Glucose Lactic Acid 9.2 H* Lactic Acid F/U @ 2Hr Calcium Phosphorus Magnesium Total Bilirubin AST ALT Alkaline Phosphatase Troponin I High Sens C-Reactive Protein 10.96 H B-Natriuretic Peptide Total Protein Albumin Random Vancomycin Blood Type Antibody Screen Crossmatch 07/26/22 07/26/22 07/26/22 05:05 05:05 05:05 WBC 19.1 H RBC 3.01 L Hgb 8.8 L Hct 25.6 L MCV 85.0 D MCH 29.2 MCHC 34.4 RDW 17.2 H Plt Count 52 L D MPV 11.9 Immature Gran % (Auto) 1.0 H Neut % (Auto) 92.1 H Lymph % (Auto) 2.6 L [place] % (Auto) 4.0 Eos % (Auto) 0.1 Baso % (Auto) 0.2 Lymph # (Auto) 0.5 L [place] # (Auto) 0.8 Eos # (Auto) 0.0 Baso # (Auto) 0.0 Abs Immat Gran (auto) 0.19 H Absolute Neuts (auto) 17.6 H Absolute Nucleated RBC 0.040 H Nucleated RBC % (auto) 0.2 Smear Tech's Comments VERIFIED PT 26.1 H INR 2.2 H VBG pH VBG pCO2 VBG pO2 VBG HCO3 VBG O2 Saturation VBG Base Excess Sodium 135 Potassium 3.9 Chloride 95 L Carbon Dioxide 22 Anion Gap 22 H BUN 81 H Creatinine 2.70 H Estim Creat Clear Calc 33.0 Estimated GFR 24 POC Glucose Random Glucose 194 H Lactic Acid Lactic Acid F/U @ 2Hr Calcium 7.6 L Phosphorus 4.9 H Magnesium 1.8 Total Bilirubin 1.3 H AST 812 H ALT 632 H Alkaline Phosphatase 129 H Troponin I High Sens C-Reactive Protein B-Natriuretic Peptide Total Protein 4.6 L Albumin 2.4 L Random Vancomycin Blood Type Antibody Screen Crossmatch 07/26/22 07/26/22 07/26/22 05:05 05:05 05:05 WBC RBC Hgb Hct MCV MCH MCHC RDW Plt Count MPV Immature Gran % (Auto) Neut % (Auto) Lymph % (Auto) [place] % (Auto) Eos % (Auto) Baso % (Auto) Lymph # (Auto) [place] # (Auto) Eos # (Auto) Baso # (Auto) Abs Immat Gran (auto) Absolute Neuts (auto) Absolute Nucleated RBC Nucleated RBC % (auto) Smear Tech's Comments PT INR VBG pH VBG pCO2 VBG pO2 VBG HCO3 VBG O2 Saturation VBG Base Excess Sodium Potassium Chloride Carbon Dioxide Anion Gap BUN Creatinine Estim Creat Clear Calc Estimated GFR POC Glucose Random Glucose Lactic Acid 7.6 H* Lactic Acid F/U @ 2Hr Calcium Phosphorus Magnesium Total Bilirubin AST ALT Alkaline Phosphatase Troponin I High Sens > 3600.0 H* C-Reactive Protein B-Natriuretic Peptide 95076 H Total Protein Albumin Random Vancomycin Blood Type Antibody Screen Crossmatch 07/26/22 07/26/22 07/26/22 05:07 06:01 07:39 WBC RBC Hgb Hct MCV MCH MCHC RDW Plt Count MPV Immature Gran % (Auto) Neut % (Auto) Lymph % (Auto) [place] % (Auto) Eos % (Auto) Baso % (Auto) Lymph # (Auto) [place] # (Auto) Eos # (Auto) Baso # (Auto) Abs Immat Gran (auto) Absolute Neuts (auto) Absolute Nucleated RBC Nucleated RBC % (auto) Smear Tech's Comments PT INR VBG pH 7.43 VBG pCO2 31 VBG pO2 40 VBG HCO3 21 L VBG O2 Saturation 67.0 VBG Base Excess -2.1 Sodium Potassium Chloride Carbon Dioxide Anion Gap BUN Creatinine Estim Creat Clear Calc Estimated GFR POC Glucose 177 H Random Glucose Lactic Acid Lactic Acid F/U @ 2Hr 6.8 H* Calcium Phosphorus Magnesium Total Bilirubin AST ALT Alkaline Phosphatase Troponin I High Sens C-Reactive Protein B-Natriuretic Peptide Total Protein Albumin Random Vancomycin Blood Type Antibody Screen Crossmatch 07/26/22 07/26/22 07/26/22 11:42 15:26 17:54 WBC RBC Hgb Hct MCV MCH MCHC RDW Plt Count MPV Immature Gran % (Auto) Neut % (Auto) Lymph % (Auto) [place] % (Auto) Eos % (Auto) Baso % (Auto) Lymph # (Auto) [place] # (Auto) Eos # (Auto) Baso # (Auto) Abs Immat Gran (auto) Absolute Neuts (auto) Absolute Nucleated RBC Nucleated RBC % (auto) Smear Tech's Comments PT INR VBG pH 7.39 VBG pCO2 35 VBG pO2 38 VBG HCO3 22 VBG O2 Saturation 60.0 VBG Base Excess -2.2 Sodium Potassium Chloride Carbon Dioxide Anion Gap BUN Creatinine Estim Creat Clear Calc Estimated GFR POC Glucose 143 H Random Glucose Lactic Acid Lactic Acid F/U @ 2Hr Calcium Phosphorus Magnesium Total Bilirubin AST ALT Alkaline Phosphatase Troponin I High Sens C-Reactive Protein B-Natriuretic Peptide Total Protein Albumin Random Vancomycin 12.9 L Blood Type Antibody Screen Crossmatch Microbiology Microbiology Results: Microbiology 07/11/22 06:35 Blood - Arterial Line Blood Culture - Final No growth after 5 days. 07/11/22 06:35 Blood - Arterial Line Blood Culture - Final No growth after 5 days. Quality Stroke Does the patient have a stroke diagnosis?: No VTE Prior VTE?: No VTE Risk Level:: Medical - moderate - high VTE Device Contraindication: Treatment Not Indicated VTE Drug Contraindication: Treatment Not Indicated (contraindicated; UGI bleed) Critical Care Time Critical Care Time (minutes): 60
[2022-07-26 18:32] LABS: Lactic Acid 6.3 mmol/L (0.5-2.0)
[2022-07-26 19:00] LABS: Venous Blood Gas Refer to POC result
[2022-07-26] MEDS: Amiodarone/Dextrose 150 MG/100 ML PLAST..BAG 200 MG IV (19:55)
[2022-07-26 20:06] LABS: Reflex Lactate? Lactic Acid Added
[2022-07-26 20:56] LABS: ~Lactic Acid-LAB USE ONLY 5.3 mmol/L (0.5-2.0)
[2022-07-26 22:36] LABS: Reflex Lactate? 2 Y
[2022-07-26 23:06] LABS: ~Lactic Acid-LAB USE ONLY 4.6 mmol/L (0.5-2.0)
[2022-07-26 23:32] LABS: Glucose, Whole Blood 107 mg/dL (60-115)
[2022-07-26 23:36] LABS: Glucose, Whole Blood 169 mg/dL (60-115)
[2022-07-26] MEDS: fentaNYL citrate/NS 1,000 MCG/100 ML PLAST..BAG 2.5 MCG IVCONT (23:59)
[2022-07-27] VITALS (40 sets, daily range): BP systolic 95–142; BP diastolic 52–92; PULSE 96–118; RESP 9–21; TEMP 33.4–36.6; O2SAT 94–100; BMI 29.9
--- NOTE | 2022-07-27 | ECG_ITS ---
Test Reason : r/o mi Blood Pressure : / mmHG Vent. Rate : 113 BPM Atrial Rate : 113 BPM P-R Int : 176 ms QRS Dur : 088 ms QT Int : 340 ms P-R-T Axes : 000 014 219 degrees QTc Int : 466 ms Sinus tachycardia Low voltage QRS Nonspecific ST and T wave abnormality Abnormal ECG When compared with ECG of 25-JUL-2022 19:48, Sinus rhythm has replaced Atrial fibrillation Referred By: Brant Rainey Electronically Signed By:SOURAV UP MD
[2022-07-27] MEDS: Pantoprazole Sodium 80 MG in 0.9 % Sodium Chloride 80 ML 10 MG IV (00:04)
[2022-07-27] MEDS: Insulin Lispro 100 UNIT/ML 3 ML VIAL SUBCUT ×3 (00:32→18:17)
[2022-07-27] MEDS: 0.9 % Sodium Chloride Flush 3 ML SYRINGE IVFLUSH ×2 (00:32→07:54)
--- NOTE | 2022-07-27 03:58 | P.PCNCC_ITS ---
Procedures Date of Service Date of Service: 07/27/22 Intubation Intubation Comments: We had more than 6 different events throughout the night were the endotracheal tube kept disconnecting at the junction between it and the ventilator personal lines insurance agent, it seems like the end of the tube is too fragile to hold in place, becomes moist, warm and automatically comes out, therefore I made the decision to replace the tube. Consent for Procedure: Emergent-no informed consent obtained Time out performed: Yes Sedative: fentanyl (100 mcg ) Mg given: 100 Assist device used: Bougie (The bougie was inserted into the previous tube which was then pulled right over the bougie, a new 7 and half endotracheal tube was placed and left at 25cm at the lip.) ET tube size: 7.5 ET tube uncuffed: Yes Tube secured depth (cm): 25 Tube secured location: lips Tube placement confirmation: visualized tube passing through cords, equal breath sounds bilaterally and no breath sounds over epigastrium Patient tolerated procedure: well and no complications Intubation complications: none (Chest x-ray shows no pneumothorax. The tube however, being at 25 cm at the lip, appears to be 5-6 cm above the jarred, this will be advanced to 27 cm at the lip.) and other (I am concerned however about a copious amount of fresh blood noted within the oral cavity which according to nurses this is not new. I also wonder whether not the patient is aspirating blood and feeding contents.)
[2022-07-27 05:01] LABS: VBG Base Excess 0.3 mmol/L; VBG HCO3 24 mmol/L (22-26); VBG pCO2 37 mmHg; VBG pH 7.42 (7.32-7.43); VBG pO2 44 mmHg
[2022-07-27 05:08] LABS: Venous Blood Gas Refer to POC result
[2022-07-27 05:28] LABS: Basophils Percent Auto 0.1 % (0-2); Hematocrit 23.1 % (42.0-52.0); Hemoglobin 7.9 g/dl (14.0-18.0); Imm Gran Abs Auto 0.11 X10*3/uL (0.00-0.03); Imm Gran Pct Auto 0.9 % (0.0-0.4); Lymphocytes Absolute Auto 0.4 X10*3/uL (1.2-4.9); Lymphocytes Percent Auto 3.5 % (20-40); MANUAL DIFF FLAG SCAN; Mean Corpuscular HGB Conc 34.2 g/dl (31.0-36.0); Mean Corpuscular Hemoglobin 28.9 pg (27.0-33.0); Mean Corpuscular Volume 84.6 fL (80.0-98.0); Mean Platelet Volume 12.4 fL (9.4-12.4); Monocytes Absolute Auto 0.6 X10*3/uL (0.1-1.2); Monocytes Percent Auto 5.1 % (2-11); NRBC Pct Auto 0.3 /100WBC (0.0-0.2); Neutrophils Absolute Auto 11.3 x10*3/uL (2.0-8.3); Neutrophils Percent Auto 90.4 % (45-73); Red Blood Count 2.73 X10*6/uL (4.60-5.80); Red Cell Distribution Width 17.4 % (11.0-16.0); SCAN SMEAR FLAG 1; White Blood Count 12.5 X10*3/uL (4.8-10.8)
[2022-07-27 05:40] LABS: INTERNATIONAL NORM RATIO 2.2 (0.9-1.1); Prothrombin Time 26.4 SEC (10.0-13.1)
[2022-07-27 05:42] LABS: Digoxin 1.4 ng/mL (0.8-2.0)
[2022-07-27 05:43] LABS: Albumin Level 2.5 g/dL (3.5-5.0); Anion Gap 17 (12-20); Blood Urea Nitrogen 57 mg/dL (9-16); Calcium 7.4 mg/dL (8.4-10.2); Carbon Dioxide 25 mmol/L (22-29); Chloride 97 mmol/L (96-108); Creatinine Clr Calc Pharmacy 48.4; Estimated Glomerular Filt Rate 32; Glucose Random 196 mg/dL (60-115); Magnesium 1.8 mg/dL (1.6-2.6); Phosphorus 3.7 mg/dL (2.7-4.5); Potassium 3.8 mmol/L (3.3-5.1); Sodium 135 mmol/L (135-145)
[2022-07-27 05:49] LABS: Platelet Count 14 X10*3/uL (160-400)
[2022-07-27 05:50] LABS: SLIDE REVIEW VERIFIED
[2022-07-27 05:53] LABS: Troponin-I High Sensitivity > 3600.0 ng/L (<3.5-35.0)
[2022-07-27 06:03] LABS: B Type Natriuretic Peptide 7717 pg/mL (<100)
[2022-07-27 06:03] LABS: Glucose, Whole Blood 190 mg/dL (60-115)
--- NOTE | 2022-07-27 07:22 | PC.NURSE ---
ETT not holding in place, several episodes of it disconnecting, therefore tube was replaced overnight by the provider . X-ray done to confirm . ETT 7.5 is now 27 at the lip. Feedings placed on hold following tube placement per order. There was a concern of patient having excess bloody secretions in mouth. Patient tolerated well. Vitals stable , O2 sats high 90's at present. Will continue to monitor.
[2022-07-27] MEDS: Chlorhexidine Gluc Oral Rinse 15 ML MOUTHWASH BUCCAL ×3 (07:53→20:35)
[2022-07-27] MEDS: Amiodarone HCL 900 MG in 0.9 % Sodium Chloride 500 ML 17.27 MG IVCONT (07:53)
[2022-07-27] MEDS: Atorvastatin Calcium 80 MG TABLET PO (08:02)
[2022-07-27] MEDS: Magnesium Sulfate/D5W 1 GM/100 ML PIGGYBACK IV (08:48)
[2022-07-27 09:02] LABS: Lactic Acid 2.8 mmol/L (0.5-2.0)
[2022-07-27] MEDS: Esmolol HCl/NaCl Iso 2,500 MG/250 ML IV.SOLN 17.19 MG IVCONT (09:09)
[2022-07-27 09:12] LABS: Cancel Lactic Acid Canceled
[2022-07-27 09:14] LABS: Reflex Lactate? No addnl Lactic Acid
--- NOTE | 2022-07-27 09:38 | PM.PNGS ---
Subjective Subjective Date of Service: 07/27/22 Interval history: No new changes with overall status Remains on ventilator Bedside debridement done yesterday Physical Exam Vital Signs: Vital Signs: Last Vital Signs Temp 97.2 F 07/27/22 08:39 Pulse 110 H 07/27/22 09:09 Resp 9 L 07/27/22 09:00 BP 103/52 L 07/27/22 09:00 Pulse Ox 98 07/27/22 09:00 O2 Del Method 07/27/22 09:00 O2 Flow Rate 2 07/24/22 12:13 FiO2 25 07/27/22 09:00 BMI result Body Mass Index 29.9 Const: Other: On ventilator, opening eyes spontaneously Resp: Other: On ventilator Cardio: Rate: tachycardic GI: Other: Soft stoma with edema and some prolapse but viable, with good air within the bag Back/Spine/Pelvis: Other: Dressings in place Objective Data Active Medications Atorvastatin Calcium (Atorvastatin Calcium 80 Mg Tablet) 80 mg PO DAILY [facility] Last Admin: 07/27/22 08:02 Dose: 80 mg Documented By: LEONEL Chlorhexidine Gluconate (Chlorhexidine Gluc Oral Rinse 15 Ml Mouthwash) 15 ml BUCCAL TID [facility] Last Admin: 07/27/22 07:53 Dose: 15 ml Documented By: LEONEL Meropenem 500 mg/ Sodium (Chloride) 50 mls @ 100 mls/hr IV Q24H [facility] Stop: 08/23/22 23:29 Last Infusion: 07/27/22 01:57 Dose: 100 mls/hr Documented By: THAIS Propofol (Diprivan) 1,000 mg in 100 mls @ 0 mls/hr IVCONT .Q0M [facility]; Protocol Last Titration: 07/25/22 18:18 Dose: 0 mcg/kg/min, 0 mls/hr Documented By: RUBEN Fentanyl (Sublimaze/Ns) 1,000 mcg in 100 mls @ 0 mls/hr IVCONT .Q0M [facility]; Protocol Last Titration: 07/27/22 04:05 Dose: 50 mcg/hr, 5 mls/hr Documented By: THAIS Pantoprazole Sodium 80 mg/ (Sodium Chloride) 100 mls @ 10 mls/hr IV .Q10H [facility] Last Admin: 07/27/22 00:04 Dose: 8 mg/hr, 10 mls/hr Documented By: THAIS Norepinephrine Bitartrate (Levophed) 8 mg in 250 mls @ 0 mls/hr IVCONT .Q0M [facility]; Protocol Last Titration: 07/27/22 09:30 Dose: 0.05 mcg/kg/min, 9 mls/hr Documented By: LEONEL Vancomycin HCl 500 mg/ Sodium (Chloride) 110 mls @ 110 mls/hr IV ONCE ONE Stop: 07/26/22 18:59 Multivitamins 14 ml/ Trace Metals 1.4 ml/ Amino Acids/Electrolytes/Dextrose 720 mls @ 30 mls/hr IVCONT DAILY@1800 [facility] Stop: 07/27/22 17:59 Last Admin: 07/26/22 17:41 Dose: 30 mls/hr Documented By: RUBEN Amiodarone HCl 900 mg/ Sodium (Chloride) 518 mls @ 34.533 mls/hr IVCONT .Q15H1M [facility]; Protocol Last Admin: 07/27/22 07:53 Dose: 0.5 mg/min, 17.27 mls/hr Documented By: LEONEL Dobutamine HCl/Dextrose (Dobutrex) 500 mg in 250 mls @ 8.865 mls/hr IVCONT .Q24H [facility] Last Admin: 07/26/22 17:09 Dose: 2.5 mcg/kg/min, 8.87 mls/hr Documented By: LEONEL Amiodarone HCl (Nexterone) 150 mg in 100 mls @ 3.333 mls/hr IV ONCE ONE Stop: 07/27/22 23:14 Last Admin: 07/26/22 17:09 Dose: 3.33 mls/hr Documented By: LEONEL Esmolol HCl (Brevibloc/Nacl) 2,500 mg in 250 mls @ 0 mls/hr IVCONT .Q0M [facility]; Protocol Last Titration: 07/27/22 09:34 Dose: 0 mcg/kg/min, 0 mls/hr Documented By: LEONEL Insulin Human Lispro (Insulin Lispro 100 Unit/Ml 3 Ml Vial) 0 unit SUBCUT Q6H [facility]; Protocol Last Admin: 07/27/22 06:34 Dose: Not Given Documented By: THAIS Non-Admin Reason: NPO Linezolid (Linezolid 600 Mg Tablet) 600 mg PO Q12H [facility] Last Admin: 07/24/22 14:13 Dose: Not Given Documented By: NAYA Non-Admin Reason: Nausea Pharmacy Consult (Consult Rx Perform Med Rec) 1 each MISCELLANE ONCE PRN PRN Reason: Consult order Sodium Chloride (0.9 % Sodium Chloride Flush 3 Ml Syringe) 3 ml IVFLUSH QSHIFT [facility] Last Admin: 07/27/22 07:54 Dose: 3 ml Documented By: LEONEL Labs CBC & Chem 7: 07/27/22 04:55 07/27/22 04:55 Labs: Laboratory Results - last 24 hr 07/25/22 07/26/22 07/26/22 16:59 10:45 11:42 MCV MCH MCHC RDW Plt Count MPV Immature Gran % (Auto) Neut % (Auto) Lymph % (Auto) [place] % (Auto) Eos % (Auto) Baso % (Auto) Lymph # (Auto) [place] # (Auto) Eos # (Auto) Baso # (Auto) Abs Immat Gran (auto) Absolute Neuts (auto) Absolute Nucleated RBC Nucleated RBC % (auto) Smear Tech's Comments PT INR VBG pH VBG pCO2 VBG pO2 VBG HCO3 VBG O2 Saturation VBG Base Excess Anion Gap Estim Creat Clear Calc Estimated GFR POC Glucose 143 H Random Glucose Lactic Acid Lactic Acid F/U @ 2Hr Lactic Acid F/U @ 4Hr 4.6 H* Calcium Phosphorus Magnesium Troponin I High Sens B-Natriuretic Peptide Albumin Random Vancomycin Digoxin Blood Type A Positive Antibody Screen NEGATIVE Crossmatch See Detail 07/26/22 07/26/22 07/26/22 15:26 17:24 17:54 MCV MCH MCHC RDW Plt Count MPV Immature Gran % (Auto) Neut % (Auto) Lymph % (Auto) [place] % (Auto) Eos % (Auto) Baso % (Auto) Lymph # (Auto) [place] # (Auto) Eos # (Auto) Baso # (Auto) Abs Immat Gran (auto) Absolute Neuts (auto) Absolute Nucleated RBC Nucleated RBC % (auto) Smear Tech's Comments PT INR VBG pH 7.39 VBG pCO2 35 VBG pO2 38 VBG HCO3 22 VBG O2 Saturation 60.0 VBG Base Excess -2.2 Anion Gap Estim Creat Clear Calc Estimated GFR POC Glucose 107 Random Glucose Lactic Acid Lactic Acid F/U @ 2Hr Lactic Acid F/U @ 4Hr Calcium Phosphorus Magnesium Troponin I High Sens B-Natriuretic Peptide Albumin Random Vancomycin 12.9 L Digoxin Blood Type Antibody Screen Crossmatch 07/26/22 07/26/22 07/26/22 17:56 20:31 23:32 MCV MCH MCHC RDW Plt Count MPV Immature Gran % (Auto) Neut % (Auto) Lymph % (Auto) [place] % (Auto) Eos % (Auto) Baso % (Auto) Lymph # (Auto) [place] # (Auto) Eos # (Auto) Baso # (Auto) Abs Immat Gran (auto) Absolute Neuts (auto) Absolute Nucleated RBC Nucleated RBC % (auto) Smear Tech's Comments PT INR VBG pH VBG pCO2 VBG pO2 VBG HCO3 VBG O2 Saturation VBG Base Excess Anion Gap Estim Creat Clear Calc Estimated GFR POC Glucose 169 H Random Glucose Lactic Acid 6.3 H* Lactic Acid F/U @ 2Hr 5.3 H* Lactic Acid F/U @ 4Hr Calcium Phosphorus Magnesium Troponin I High Sens B-Natriuretic Peptide Albumin Random Vancomycin Digoxin Blood Type Antibody Screen Crossmatch 07/27/22 07/27/22 07/27/22 04:54 04:55 04:55 MCV MCH MCHC RDW Plt Count MPV Immature Gran % (Auto) Neut % (Auto) Lymph % (Auto) [place] % (Auto) Eos % (Auto) Baso % (Auto) Lymph # (Auto) [place] # (Auto) Eos # (Auto) Baso # (Auto) Abs Immat Gran (auto) Absolute Neuts (auto) Absolute Nucleated RBC Nucleated RBC % (auto) Smear Tech's Comments PT 26.4 H INR 2.2 H VBG pH 7.42 VBG pCO2 37 VBG pO2 44 VBG HCO3 24 VBG O2 Saturation 71.0 VBG Base Excess 0.3 Anion Gap Estim Creat Clear Calc Estimated GFR POC Glucose Random Glucose Lactic Acid Lactic Acid F/U @ 2Hr Lactic Acid F/U @ 4Hr Calcium Phosphorus Magnesium Troponin I High Sens B-Natriuretic Peptide Albumin Random Vancomycin Digoxin 1.4 Blood Type Antibody Screen Crossmatch 07/27/22 07/27/22 07/27/22 04:55 04:55 04:55 MCV 84.6 MCH 28.9 MCHC 34.2 RDW 17.4 H Plt Count 14 L* D MPV 12.4 Immature Gran % (Auto) 0.9 H Neut % (Auto) 90.4 H Lymph % (Auto) 3.5 L [place]eker % (Auto) 5.1 Eos % (Auto) 0.0 Baso % (Auto) 0.1 Lymph # (Auto) 0.4 L [place] # (Auto) 0.6 Eos # (Auto) 0.0 Baso # (Auto) 0.0 Abs Immat Gran (auto) 0.11 H Absolute Neuts (auto) 11.3 H Absolute Nucleated RBC 0.040 H Nucleated RBC % (auto) 0.3 H Smear Tech's Comments VERIFIED PT INR VBG pH VBG pCO2 VBG pO2 VBG HCO3 VBG O2 Saturation VBG Base Excess Anion Gap 17 Estim Creat Clear Calc 48.4 Estimated GFR 32 POC Glucose Random Glucose 196 H Lactic Acid Lactic Acid F/U @ 2Hr Lactic Acid F/U @ 4Hr Calcium 7.4 L Phosphorus 3.7 Magnesium 1.8 Troponin I High Sens B-Natriuretic Peptide 7717 H Albumin 2.5 L Random Vancomycin Digoxin Blood Type Antibody Screen Crossmatch 07/27/22 07/27/22 07/27/22 04:55 05:59 08:28 MCV MCH MCHC RDW Plt Count MPV Immature Gran % (Auto) Neut % (Auto) Lymph % (Auto) [place] % (Auto) Eos % (Auto) Baso % (Auto) Lymph # (Auto) [place] # (Auto) Eos # (Auto) Baso # (Auto) Abs Immat Gran (auto) Absolute Neuts (auto) Absolute Nucleated RBC Nucleated RBC % (auto) Smear Tech's Comments PT INR VBG pH VBG pCO2 VBG pO2 VBG HCO3 VBG O2 Saturation VBG Base Excess Anion Gap Estim Creat Clear Calc Estimated GFR POC Glucose 190 H Random Glucose Lactic Acid 2.8 H* Lactic Acid F/U @ 2Hr Lactic Acid F/U @ 4Hr Calcium Phosphorus Magnesium Troponin I High Sens > 3600.0 H* B-Natriuretic Peptide Albumin Random Vancomycin Digoxin Blood Type Antibody Screen Crossmatch Procedures Date of Service Date of Service: 07/27/22 Progress Note: A&P Assessment and plan (1) Stage IV pressure ulcer of sacral region: Status: Acute Assessment and Plan: I have changed his dressings yesterday after debridement Plan to apply wound VAC probably tomorrow Platelet count is at 14 Remains on the ventilator and critically ill (2) Anasarca: Status: Acute Assessment and Plan: Significant edema all over the extremities with weeping Scrotum also markedly swollen Stoma with significant edema as well - I have applied circumferential pressure to decrease this and reduce some prolapse Critically ill Time Spent With Patient Time: Total time spent is greater than 50% in coordination of care (as documented) at patient's floor/unit and/or counseling patient: Quality Stroke Does the patient have a stroke diagnosis?: No VTE Prior VTE?: No VTE Risk Level:: Medical - moderate - high VTE Device Contraindication: Treatment Not Indicated VTE Drug Contraindication: Treatment Not Indicated (contraindicated; UGI bleed)
--- NOTE | 2022-07-27 09:55 | PC.NURSE ---
Addendum entered by Kyung Steele RN 07/27/22 16:58: 12:30 patient vent settings AC 12/450/5.0/21%. Pt started on dialysis treatment. 16:45 vent settings PSV 12/5 21% Original Note: 08:00 1 unit platelets administered 08:23 1 unit RBC transfusing. 08:30 Patient vent settings changed to PSV 5/5.0 25% 09:45 1 additional unit Plt ordered. Discussed limits of IV access related to IV continuous drips and compatibility with MD. Per MD transfuse RBC first and then send for Plt clam picker at blood bank.
--- NOTE | 2022-07-27 10:39 | W.PM.DNNEP ---
Subjective Subjective This patient was seen during dialysis. Interval history: Events noted Remains on vent Physical Exam Vital Signs: Vital Signs: Last Vital Signs Temp 97.2 F 07/27/22 08:39 Pulse 108 H 07/27/22 10:08 Resp 9 L 07/27/22 09:00 BP 103/52 L 07/27/22 09:00 Pulse Ox 98 07/27/22 09:00 O2 Del Method 07/27/22 09:00 O2 Flow Rate 2 07/24/22 12:13 FiO2 25 07/27/22 09:00 BMI result Body Mass Index 29.9 Const: General: no acute distress, ill appearing and other (ET tube in place) Nutritional Appearance: thin Limitations: other limitations (intubated and sedated) Eyes: General: appearance normal, both eyes and all related structures Sclerae: sclerae normal Pupils: Equal, round and reactive pupils present Neck: Neck: Yes supple Resp: Auscultation: crackles ( diffuse bilateral) Cardio: Rate: regular rate Heart sounds: no gallops and no murmurs GI: Inspection: Yes distended and Yes other (Ostomy bag is present) Palpation (GI): Soft to palpation Auscultation: normal bowel sounds Rectal Exam - Male: Yes deferred : General: Yes no CVA tenderness Back/Spine/Pelvis: Back: no CVA tenderness Skin: General skin exam: no rashes or lesions noted Neuro: General: moves all extremities Cranial nerves: Yes Equal, round and reactive pupils present Motor exam (neuro): no asterixis Extrem: General: Yes normal to inspection, No clubbing and Yes cyanosis (acral) Assessment & Plan Assessment and plan (1) End stage renal disease: Status: Inactive Plan ESRD on HD TTS Volume overload Extra UF today and as needed Concur with other medical management Time Spent With Patient Time: Total time spent is greater than 50% in coordination of care (as documented) at patient's floor/unit and/or counseling patient: Procedures Date of Service Date of Service: 07/27/22
[2022-07-27] MEDS: propofoL 1,000 MG/100 ML VIAL 5.76 MG IVCONT ×2 (10:57→22:41)
[2022-07-27] MEDS: Silver Nitrate Applicator STICK..EA. 1 APPL TOPICAL (11:23)
--- NOTE | 2022-07-27 11:48 | PM.CCPN ---
Subjective Subjective Date of Service: 07/27/22 Interval History: Mr. Andujar was admitted to the ICU on 07/24/2022 after PEA arrest on the floor. The patient is a 67-year-old gentleman with underlying diabetes mellitus, CKD and ischemic heart failure, SP CABG about 8-10 years ago, followed by ICD placement.? Over last year or so, EF was reportedly about 40%.? 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 The diuretics no longer worked. He was admitted to [facility] for edema management in March.? Everything went downhill from there, and he was started on HD.? At some point he developed a decubitus ulcer.? He spent approximately 3 weeks at [facility] and was then transferred to [facility] for rehab.? After 3 weeks at [facility], he was admitted to [facility] for management of sepsis from the Decubitus ulcer.? Then went back to [facility] and since then, been back at [facility] and [facility] for further management of sepsis, the decubitus, and renal failure, including two surgeries for the decubitus, including a diverting colostomy done approximately about 8 weeks ago at [facility]. Currently PMHx additionally includes ESRD on hemodialysis, protein calorie malnutrition, coronary artery disease status post CABG, ischemic cardiomyopathy with EF of 40-45%, status post AICD, PAfib, osteomyelitis of stage IV sacral decubitus ulcer, discoid lupus, and diverting colostomy. On 07/11/2022, he was BIBA to [facility] after developing chest pain. There was no evidence of ACS. He was admitted to the medical floor for stage IV decubitus ulcer/osteomyelitis meeting sepsis criteria and ESRD, and given empiric abx.? His hospital course since then had been relatively stable, and his discharge was being planned.? He'd had a chronic leukocytosis over the last few months secondary to the osteomyelitis; his WBC remained elevated despite completing a prior course of IV antibiotics.? Most recently Dr. Stein recommended IV meropenem and PO zyvox for 6 weeks. He'd been followed by surgery s/p debridement; preventative measures in place with frequent turning, and appropriate bed. TPN was initiated to promote wound healing.? He was continued on his T-Th-Sat HD schedule. Due to vomiting, he had an xray that showed dilated stomach but no evidence of bowel obstruction. That clinically seems to have resolved. He had intermittent tachycardia and paroxysmal AFIB controlled with Metoprolol 25mg tid. On Jul 24, the bicarb level on his routine morning labs was low.? A lactate level was checked and came back very high.? While the patient was being evaluated he went into a PEA arrest.? CPR and ACLS administered.? He had ROSC after four rounds of epinephrine.? No shocks were required.? The duration of CPR was approximately 16 minutes.? He was intubated during the CPR and transferred to intensive care unit. He did show signs of awakening after CPR and required sedation.? NGT placement after tx to ICU showed blood.? Hb was 3.5 (c/w 8.1 one week prior).? He was vol resusc with blood and crystalloid.? Thru that nite he required Levophed and a bicarb drip and his lactates remained elevated in the 15 range. The following day (Jul 25), he had a persistent metabolic and lactic acidoses in the 14 range, which began to improve in the evening.? His levophed requirement came down slowly and after propofol was turned off he had consistent eye opening to command.? FiO2 was down to 30%.? Propofol has remained off. Yesterday he was eye opening more expressively than the previous day.? Later in the day he was inconsistently turning his head to voice and squeezing a hand, but not quite purposeful.? We started him on dobutamine 25ug and his BP went up, Levophed requirement went down.? Dr. Vidales debrided the sacral wound at the bedside.? There was not much to debride, it was mostly bone.? No gross infection, no odor.? We put a Kaofeed tube down and started tube feeds.? We started him on amiodarone for heart rate control of AFib with RVR, and early this morning he converted to SR. This morning, the patient is much more expressive and interactive altho still not 100% consistently.? He lifts his hand up to reach for the ETT.? Responded to me purposefully altho inconsistently with a nod of the head, squeezing my hand, and moving his toes. ?HR 112, SR, on amiodarone drip.? BP 129/72 on Levophed 0.08ug and dobutamine 2.5ug.? We tried slowing his HR with low-dose esmolol, but his BP dropped precipitously, so that was abandoned.? On echo today, the LV looked noticeably smaller (qualitatively) and wall motion was noticeably improved compared to yesterday?s echo.? EF today might be as much as 20%.? Also, EKG today has return of R waves in V2 and V3 compared to the EKG on Jul 25.? At onset of HD today, BP a lot less and the Levophed had to be increased a lot less compared to the instability that occurred with onset of HD yesterday. CVBG early this morning 7.42/37/0.? We switched him over to PSV easily.? On PSV 5cm, tidal vols were in the 6-700s.? SpO2 up to 100% on 21% FiO2.? .? Afebrile.? No JVD at 30?.? Coarse BS and rhonchi thruout after turning him.? Irreg rhythm -- sinus with PVCs.? No murmurs or gallops.? The abdomen is mildly rotund, not distended.? The ostomy bag is half full of red/brown liquid with an edematous prolapse of the loop colostomy.? He has gross anasarca from the neck down, at least 3+.? The inferior magin of his large (grapefruit-sized) stage IV decubitus ulcer bled today.? We cauterized the bleeding w silver nitrate sticks. LABORATORY DATA:? Below.? Notable for Hgb down to 7.9, Plat 14K (down from 52K yesterday), INR 2.2 after 50mg total Vit K, Lactate down to 2.8.? Trop still > 3600, BNP down to 7717.? Alb 2.5. EGD 07/25:? Erosive esophagitis; multiple chronic appearing 4-5 mm ulcers in the duodenal bulb; a 2 cm non-bleeding ulcer with yellow exudate at the base of the duodenal bulb with a visible vessel - one hemoclip was applied.? No blood or active bleeding seen in the UGI tract during EGD and no biopsies were obtained. IMPRESSION: 1. Underlying ESRD on HD with refractory anasarca.? As expected, the beginning of his HD sessions have had hemod instability.? Will do daily dialysis this week. 2. Underlying systolic ischemic CMOP. 3. Chronic large stage 4 sacral decubitus with chronic osteomyelitis, s/p diverting sigmoid loop colostomy. ?Woundvac is probably next step. 4. S/p Cardiac arrest -- PEA arrest, 2? UGI bleed.? Likely never had full cessation of spont circulation, judging by his rapid return of mental status after 16 min of CPR. 5. S/P acute NSTEMI.? Based on the troponin bump, the EKG changes (loss of precordial R waves), and the marked loss of ventricular function on echo.? The now-severe CMOP is making HD more difficult.? Started on Lipitor 80mg.? Tried beta willow but he was too unstable.? No anticoagulation or ASA bec of GI bleed. 6. Cardiogenic shock w shock liver.? Improving, based on resolving lactate, improving BP, and improving ventricular size and fxn on echo. 7. Metabolic acidosis.? Resolved. 8. Acute Respiratory Failure. ?Intubated during the CPR. ?Oxgenation is perfect.? Continue ventilatory support as necessary.? Might be extubatable tomorrow. 9. S/P UGI bleed with hemorrhagic shock.? Continue high dose PPI.? Transfuse to Hgb > 9. ?Procrit. 10. Anoxic encephalopathy.? Improving. 11. Coagulopathy.? 2? hepatic failure.? Vit K 50 mg total given, but INR is noncorrectable.? Recheck INR in AM. 12. AFib w RVR.? Cardioverted w amiodarone.? At the suggestion of Dr. Williamson from the heart failure service, we won?t try to reduce his HR now that he?s in SR.? Need the HR to compensate for his low CO. D/C Esmolol drip, continue amiodarone. 13. ID: Continue meropenam and vanco for osteomyelitis, per ID recs. 14. Diabetes mellitus. SS insulin.? Also started him on Lantus. 15. Nutrition.? Advancing tube feeds.? Nepro via Kaofeed tube.? D/C?d the TPN. Spoke again with Dr. Lamont Williamson at the heart failure service.? Reviewed his progress in depth.? They would be possibly willing to take him if his MS improves.? Will reeval tomorrow. Spoke with family again and had extended conversation about prognosis and potential complications. Critical Care Time (minutes): 120 Physical Exam Vital Signs: Vital Signs: Last Vital Signs Temp 97.3 F 07/27/22 11:19 Pulse 112 H 07/27/22 11:19 Resp 11 L 07/27/22 11:19 BP 140/82 H 07/27/22 11:19 Pulse Ox 100 07/27/22 11:00 O2 Del Method 07/27/22 11:00 O2 Flow Rate 2 07/24/22 12:13 FiO2 25 07/27/22 11:34 BMI result Body Mass Index 29.9 Objective Data Labs CBC & Chem 7: 07/27/22 21:35 07/27/22 04:55 Labs: Laboratory Results - last 24 hr 07/25/22 07/26/22 07/26/22 16:59 10:45 15:26 WBC RBC Hgb Hct MCV MCH MCHC RDW Plt Count MPV Immature Gran % (Auto) Neut % (Auto) Lymph % (Auto) Lyon % (Auto) Eos % (Auto) Baso % (Auto) Lymph # (Auto) Lyon # (Auto) Eos # (Auto) Baso # (Auto) Abs Immat Gran (auto) Absolute Neuts (auto) Absolute Nucleated RBC Nucleated RBC % (auto) Smear Tech's Comments PT INR VBG pH VBG pCO2 VBG pO2 VBG HCO3 VBG O2 Saturation VBG Base Excess Sodium Potassium Chloride Carbon Dioxide Anion Gap BUN Creatinine Estim Creat Clear Calc Estimated GFR POC Glucose Random Glucose Lactic Acid Lactic Acid F/U @ 2Hr Lactic Acid F/U @ 4Hr 4.6 H* Calcium Phosphorus Magnesium Troponin I High Sens B-Natriuretic Peptide Albumin Random Vancomycin 12.9 L Digoxin Blood Type A Positive Antibody Screen NEGATIVE Crossmatch See Detail 07/26/22 07/26/22 07/26/22 17:24 17:54 17:56 WBC RBC Hgb Hct MCV MCH MCHC RDW Plt Count MPV Immature Gran % (Auto) Neut % (Auto) Lymph % (Auto) Lyon % (Auto) Eos % (Auto) Baso % (Auto) Lymph # (Auto) Lyon # (Auto) Eos # (Auto) Baso # (Auto) Abs Immat Gran (auto) Absolute Neuts (auto) Absolute Nucleated RBC Nucleated RBC % (auto) Smear Tech's Comments PT INR VBG pH 7.39 VBG pCO2 35 VBG pO2 38 VBG HCO3 22 VBG O2 Saturation 60.0 VBG Base Excess -2.2 Sodium Potassium Chloride Carbon Dioxide Anion Gap BUN Creatinine Estim Creat Clear Calc Estimated GFR POC Glucose 107 Random Glucose Lactic Acid 6.3 H* Lactic Acid F/U @ 2Hr Lactic Acid F/U @ 4Hr Calcium Phosphorus Magnesium Troponin I High Sens B-Natriuretic Peptide Albumin Random Vancomycin Digoxin Blood Type Antibody Screen Crossmatch 07/26/22 07/26/22 07/27/22 20:31 23:32 04:54 WBC RBC Hgb Hct MCV MCH MCHC RDW Plt Count MPV Immature Gran % (Auto) Neut % (Auto) Lymph % (Auto) Lyon % (Auto) Eos % (Auto) Baso % (Auto) Lymph # (Auto) Lyon # (Auto) Eos # (Auto) Baso # (Auto) Abs Immat Gran (auto) Absolute Neuts (auto) Absolute Nucleated RBC Nucleated RBC % (auto) Smear Tech's Comments PT INR VBG pH 7.42 VBG pCO2 37 VBG pO2 44 VBG HCO3 24 VBG O2 Saturation 71.0 VBG Base Excess 0.3 Sodium Potassium Chloride Carbon Dioxide Anion Gap BUN Creatinine Estim Creat Clear Calc Estimated GFR POC Glucose 169 H Random Glucose Lactic Acid Lactic Acid F/U @ 2Hr 5.3 H* Lactic Acid F/U @ 4Hr Calcium Phosphorus Magnesium Troponin I High Sens B-Natriuretic Peptide Albumin Random Vancomycin Digoxin Blood Type Antibody Screen Crossmatch 07/27/22 07/27/22 07/27/22 04:55 04:55 04:55 WBC 12.5 H RBC 2.73 L Hgb 7.9 L Hct 23.1 L MCV 84.6 MCH 28.9 MCHC 34.2 RDW 17.4 H Plt Count 14 L* D MPV 12.4 Immature Gran % (Auto) 0.9 H Neut % (Auto) 90.4 H Lymph % (Auto) 3.5 L Lyon % (Auto) 5.1 Eos % (Auto) 0.0 Baso % (Auto) 0.1 Lymph # (Auto) 0.4 L Lyon # (Auto) 0.6 Eos # (Auto) 0.0 Baso # (Auto) 0.0 Abs Immat Gran (auto) 0.11 H Absolute Neuts (auto) 11.3 H Absolute Nucleated RBC 0.040 H Nucleated RBC % (auto) 0.3 H Smear Tech's Comments VERIFIED PT 26.4 H INR 2.2 H VBG pH VBG pCO2 VBG pO2 VBG HCO3 VBG O2 Saturation VBG Base Excess Sodium Potassium Chloride Carbon Dioxide Anion Gap BUN Creatinine Estim Creat Clear Calc Estimated GFR POC Glucose Random Glucose Lactic Acid Lactic Acid F/U @ 2Hr Lactic Acid F/U @ 4Hr Calcium Phosphorus Magnesium Troponin I High Sens B-Natriuretic Peptide Albumin Random Vancomycin Digoxin 1.4 Blood Type Antibody Screen Crossmatch 07/27/22 07/27/22 07/27/22 04:55 04:55 04:55 WBC RBC Hgb Hct MCV MCH MCHC RDW Plt Count MPV Immature Gran % (Auto) Neut % (Auto) Lymph % (Auto) Lyon % (Auto) Eos % (Auto) Baso % (Auto) Lymph # (Auto) Lyon # (Auto) Eos # (Auto) Baso # (Auto) Abs Immat Gran (auto) Absolute Neuts (auto) Absolute Nucleated RBC Nucleated RBC % (auto) Smear Tech's Comments PT INR VBG pH VBG pCO2 VBG pO2 VBG HCO3 VBG O2 Saturation VBG Base Excess Sodium 135 Potassium 3.8 Chloride 97 Carbon Dioxide 25 Anion Gap 17 BUN 57 H Creatinine 2.08 H Estim Creat Clear Calc 48.4 Estimated GFR 32 POC Glucose Random Glucose 196 H Lactic Acid Lactic Acid F/U @ 2Hr Lactic Acid F/U @ 4Hr Calcium 7.4 L Phosphorus 3.7 Magnesium 1.8 Troponin I High Sens > 3600.0 H* B-Natriuretic Peptide 7717 H Albumin 2.5 L Random Vancomycin Digoxin Blood Type Antibody Screen Crossmatch 07/27/22 07/27/22 05:59 08:28 WBC RBC Hgb Hct MCV MCH MCHC RDW Plt Count MPV Immature Gran % (Auto) Neut % (Auto) Lymph % (Auto) Lyon % (Auto) Eos % (Auto) Baso % (Auto) Lymph # (Auto) Lyon # (Auto) Eos # (Auto) Baso # (Auto) Abs Immat Gran (auto) Absolute Neuts (auto) Absolute Nucleated RBC Nucleated RBC % (auto) Smear Tech's Comments PT INR VBG pH VBG pCO2 VBG pO2 VBG HCO3 VBG O2 Saturation VBG Base Excess Sodium Potassium Chloride Carbon Dioxide Anion Gap BUN Creatinine Estim Creat Clear Calc Estimated GFR POC Glucose 190 H Random Glucose Lactic Acid 2.8 H* Lactic Acid F/U @ 2Hr Lactic Acid F/U @ 4Hr Calcium Phosphorus Magnesium Troponin I High Sens B-Natriuretic Peptide Albumin Random Vancomycin Digoxin Blood Type Antibody Screen Crossmatch Microbiology Microbiology Results: Microbiology 07/11/22 06:35 Blood - Arterial Line Blood Culture - Final No growth after 5 days. 07/11/22 06:35 Blood - Arterial Line Blood Culture - Final No growth after 5 days. Quality Stroke Does the patient have a stroke diagnosis?: No VTE Prior VTE?: No VTE Risk Level:: Medical - moderate - high VTE Device Contraindication: Treatment Not Indicated VTE Drug Contraindication: Treatment Not Indicated (contraindicated; UGI bleed) Critical Care Time Critical Care Time (minutes): 120
[2022-07-27 12:07] LABS: Hematocrit 24.2 % (42.0-52.0); Hemoglobin 8.4 g/dl (14.0-18.0); Mean Corpuscular HGB Conc 34.7 g/dl (31.0-36.0); Mean Corpuscular Volume 86.4 fL (80.0-98.0); Mean Platelet Volume 9.6 fL (9.4-12.4); NRBC Pct Auto 0.3 /100WBC (0.0-0.2); Red Cell Distribution Width 17.2 % (11.0-16.0); White Blood Count 16.1 X10*3/uL (4.8-10.8)
[2022-07-27 12:11] LABS: Platelet Count 50 X10*3/uL (160-400)
--- NOTE | 2022-07-27 12:26 | PM.EVENT ---
Event Note Date of Service: 07/27/22 Event Note: Called to ICU to assess wound by Dr. Rainey due to multiple bloody dressing saturations of decubitus ulcer. Was debrided yesterday by Dr. Vidales. Platelets 14 this am. Given 1U platelets so far. Surgicel was placed by Dr Rainey without hemostasis. Dressing removed- small area oozing at inferior aspect of wound near edge on left. Surgicel applied and pressure was held for a few minutes. Some oozing still noted. Silver nitrate sticks then applied to area x 3. No further bleeding noted. Surgicel then reapplied. Area monitored for a few minutes without evidence of rebleeding. Good hemostasis achieved, wet to dry kerlix applied to wound bed and heavy abd dressing applied.
[2022-07-27 12:32] LABS: Glucose, Whole Blood 217 mg/dL (60-115)
--- NOTE | 2022-07-27 13:27 | MHC.CLN ---
F/U: PT REMAINS INTUBATED AND LIGHTLY SEDATED REVIEWED LABS DISCUSSED WITH MD; KAOFEED TUBE PLACED PT RECEIVING TF NEPRO AT MAX GOAL RATE 20ML/HR TOLERATING WITH LOW RESIDUALS D/C PPN TODAY DISCUSSED WITH PHARMACY RECOMMEND INCREASING TF NEPRO TO MAX GOAL RATE 65ML/HR TO PROVIDE 2808KCALS (30KCALS/KG BASED ON ADMISSION WT), 126G PROTEIN (1.3G/KG FOR WOUND HEALING), 1134ML FREE WATER FROM FORMULA MONITOR TOLERANCE, RESIDUALS AND LYTES
[2022-07-27] MEDS: fentaNYL citrate/NS 1,000 MCG/100 ML PLAST..BAG 5 MCG IVCONT (15:41)
[2022-07-27] MEDS: DOBUTamine HCL/D5W 500 MG/250 ML IV.SOLN 8.87 MG IVCONT (15:51)
[2022-07-27] MEDS: Pantoprazole Sodium 40 MG/10 ML VIAL IVPUSH (15:57)
--- NOTE | 2022-07-27 17:48 | PC.NURSE ---
08:00 1 unit platelets administered 08:23 1 unit RBC transfusing. 08:30 Patient vent settings changed to PSV 5/5.0 25% 09:45 1 additional unit Plt ordered. Discussed limits of IV access related to IV continuous drips and compatibility with MD. Per MD transfuse RBC first and then send for Plt pickling machine operator at blood bank. 12:30 vent settings AC 12/450/5.0/21% pt s/p 1 unit RBC and 2 units Plt this shift. Repo Q2H, prevlon system utilized, Q2H mouth care.
[2022-07-27 18:09] LABS: Glucose, Whole Blood 175 mg/dL (60-115)
[2022-07-27 18:21] LABS: Vancomycin Random 14.7 mcg/mL (15-20)
[2022-07-27] MEDS: Insulin Glargine,Hum.rec.anlog 100 UNIT/ML 10 ML VIAL 20 UNIT SUBCUT (20:35)
[2022-07-27] MEDS: Midodrine HCl 5 MG TABLET PO (20:35)
[2022-07-27] MEDS: Albumin Human 25 % 100 ML IV ×2 (21:19→23:40)
[2022-07-27 21:46] LABS: Hematocrit 24.9 % (42.0-52.0); Hemoglobin 8.5 g/dl (14.0-18.0); Mean Corpuscular HGB Conc 34.1 g/dl (31.0-36.0); Mean Corpuscular Hemoglobin 29.2 pg (27.0-33.0); Mean Corpuscular Volume 85.6 fL (80.0-98.0); Mean Platelet Volume 10.7 fL (9.4-12.4); NRBC Pct Auto 0.3 /100WBC (0.0-0.2); Red Blood Count 2.91 X10*6/uL (4.60-5.80); Red Cell Distribution Width 17.1 % (11.0-16.0); White Blood Count 15.4 X10*3/uL (4.8-10.8)
[2022-07-27 21:51] LABS: Platelet Count 21 X10*3/uL (160-400)
[2022-07-27 22:09] LABS: Lactic Acid 2.2 mmol/L (0.5-2.0)
[2022-07-27 23:25] LABS: Cancel Lactic Acid Canceled
--- NOTE | 2022-07-27 23:36 | PC.NURSE ---
1 UNIT OF FFP INFUSED, PATIENT TOLERATED WELL WITH NO S/S OF ADVERSE REACTION. DOUBLE CHECK PREFORMED BY RN X2 PRIOR TO START OF INFUSION.
[2022-07-28] VITALS (47 sets, daily range): BP systolic 86–135; BP diastolic 47–86; PULSE 110–115; RESP 10–22; TEMP 34.9–36.4; O2SAT 95–100; BMI 29.5
[2022-07-28] MEDS: 0.9 % Sodium Chloride Flush 3 ML SYRINGE IVFLUSH ×4 (00:01→23:46)
[2022-07-28] MEDS: Albumin Human 25 % 100 ML IV ×3 (00:52→08:22)
--- NOTE | 2022-07-28 03:16 | PC.NURSE ---
Addendum entered by Lamont Whatley RN 07/28/22 06:52: RETURNED TO CPAP 5/PSV 14/FIO2 21% BY RT...Ve 7-8 L/M Original Note: CARE ASSUMED 23:15....INITIALLY CPAP 5/PSV 10/FIO2 21% FOR VENT SUPPORT..SEDATE WITH PROPOFOL 10 MCG/KG/MIN AND FENTANYL 50 MCG/HR....Ve 8 L/M AND TV>300 AT 23:30...GRADUAL DECREASED TV/Ve...PSV TO 14CM W/O EFFECT..ICU PA PRESENT AND VENT RETURNED TO AC/VCV MODE...AC12/TV 400/FIO2 21%/PEEP 5...CONTINUES AMIODARONE/DOBUTRX/LEVOPHED DRIPS PER OCT..SINUS TACH HR 112-114 WITH OCCASSIONAL VENTRICULAR ECTOPY....PROPOFOL HELD PER ICU PA TO ASSESS NEURO STATUS...AWAKE SPONTANEOUSLY..TRACKS SPEAKER..SQUEEZES HANDS/WIGGLES TOES TO COMMAND..DENIED PAIN...RR ELEVATED TO 34-36 AFTER 1 HOUR...PROPOFOL RESUMED 10 MCG/KG/MIN WITH RR 18-22...RESTFUL....ARANDA REMAINS MINIMAL OUTPUT..GROSS ANASARCA...PROBABLE AM DIALYSIS PER ICU RECOVERY RN...PRBC X1 INFUSED PER TAR
[2022-07-28] MEDS: Midodrine HCl 5 MG TABLET PO ×3 (03:53→19:52)
[2022-07-28 05:09] LABS: VBG HCO3 27 mmol/L (22-26); VBG pCO2 44 mmHg; VBG pH 7.39 (7.32-7.43); VBG pO2 39 mmHg
[2022-07-28 05:16] LABS: Glucose, Whole Blood 84 mg/dL (60-115)
[2022-07-28 05:16] LABS: Glucose, Whole Blood 149 mg/dL (60-115)
[2022-07-28] MEDS: Pantoprazole Sodium 40 MG/10 ML VIAL IVPUSH ×2 (05:16→17:09)
[2022-07-28 05:35] LABS: Venous Blood Gas Refer to POC result
[2022-07-28 05:38] LABS: Hematocrit 24.9 % (42.0-52.0); Hemoglobin 8.5 g/dl (14.0-18.0); Mean Corpuscular HGB Conc 34.1 g/dl (31.0-36.0); Mean Corpuscular Hemoglobin 29.6 pg (27.0-33.0); Mean Corpuscular Volume 86.8 fL (80.0-98.0); Mean Platelet Volume 10.6 fL (9.4-12.4); Red Blood Count 2.87 X10*6/uL (4.60-5.80); Red Cell Distribution Width 16.9 % (11.0-16.0); White Blood Count 13.8 X10*3/uL (4.8-10.8)
[2022-07-28 05:39] LABS: Platelet Count 27 X10*3/uL (160-400)
[2022-07-28 06:04] LABS: Alanine Aminotransferase 288 U/L (0-40); Albumin Level 3.2 g/dL (3.5-5.0); Alkaline Phosphatase 108 U/L (39-117); Anion Gap 16 (12-20); Aspartate Amino Transferase 156 U/L (5-37); Bilirubin Total 2.4 mg/dL (0.0-1.0); Blood Urea Nitrogen 62 mg/dL (9-16); Calcium 7.6 mg/dL (8.4-10.2); Carbon Dioxide 25 mmol/L (22-29); Chloride 97 mmol/L (96-108); Creatinine Clr Calc Pharmacy 43.6; Estimated Glomerular Filt Rate 29; Glucose Random 77 mg/dL (60-115); Magnesium 1.9 mg/dL (1.6-2.6); Potassium 3.3 mmol/L (3.3-5.1); Sodium 135 mmol/L (135-145); Total Protein 4.9 g/dL (6.5-8.0)
[2022-07-28 06:06] LABS: B Type Natriuretic Peptide 3946 pg/mL (<100)
[2022-07-28 06:16] LABS: Lactic Acid 2.3 mmol/L (0.5-2.0)
[2022-07-28 06:17] LABS: Troponin-I High Sensitivity 1946.8 ng/L (<3.5-35.0)
[2022-07-28] MEDS: Potassium Chloride Packet 20 MEQ PACKET 40 MEQ PO (07:25)
[2022-07-28 07:31] LABS: Reflex Lactate? Lactic Acid Added
--- NOTE | 2022-07-28 08:32 | PM.PNGS ---
Subjective Subjective Date of Service: 07/28/22 <Kathy Slaughter PA-C - Last Filed: 07/28/22 13:51> 07/28/22 <Saud Vidales MD - Last Filed: 07/28/22 14:24> Interval history: Remains intubated on ventilator. Currently undergoing dialysis. No further saturation of sacral dressings. <Kathy Slaughter PA-C - Last Filed: 07/28/22 13:51> Physical Exam Vital Signs: Vital Signs: Last Vital Signs Temp 95.9 F L 07/28/22 08:00 Pulse 112 H 07/28/22 08:00 Resp 14 07/28/22 08:00 BP 117/69 07/28/22 08:00 Pulse Ox 97 07/28/22 08:00 O2 Del Method 07/28/22 08:00 O2 Flow Rate 2 07/24/22 12:13 FiO2 21 07/28/22 08:00 BMI result Body Mass Index 29.5 <Kathy Slaughter PA-C - Last Filed: 07/28/22 13:51> Resp: Other: on ventilator <Kathy Slaughter PA-C - Last Filed: 07/28/22 13:51> Back/Spine/Pelvis: Other: sacral decubitus ulcer, wet to dry dressing in place <Kathy Slaughter PA-C - Last Filed: 07/28/22 13:51> Skin: Other: anasarca with weeping of skin all over <Kathy Slaughter PA-C - Last Filed: 07/28/22 13:51> Extrem: General: Yes edema <Kathy Slaughter PA-C - Last Filed: 07/28/22 13:51> Objective Data Active Medications Atorvastatin Calcium (Atorvastatin Calcium 80 Mg Tablet) 80 mg G-TUBE DAILY [facility] Chlorhexidine Gluconate (Chlorhexidine Gluc Oral Rinse 15 Ml Mouthwash) 15 ml BUCCAL TID [facility] Last Admin: 07/27/22 20:35 Dose: 15 ml Documented By: DAVID Meropenem 500 mg/ Sodium (Chloride) 50 mls @ 100 mls/hr IV Q24H [facility] Stop: 08/23/22 23:29 Last Infusion: 07/28/22 00:33 Dose: 0 mls/hr Documented By: ELI Propofol (Diprivan) 1,000 mg in 100 mls @ 0 mls/hr IVCONT .Q0M YU; Protocol Last Titration: 07/28/22 01:17 Dose: 0 mcg/kg/min, 0 mls/hr Documented By: ELI Fentanyl (Sublimaze/Ns) 1,000 mcg in 100 mls @ 0 mls/hr IVCONT .Q0M YU; Protocol Last Admin: 07/27/22 15:41 Dose: 50 mcg/hr, 5 mls/hr Documented By: LEONEL Norepinephrine Bitartrate (Levophed) 8 mg in 250 mls @ 0 mls/hr IVCONT .Q0M YU; Protocol Last Titration: 07/28/22 06:36 Dose: 0.04 mcg/kg/min, 7.2 mls/hr Documented By: ELI Vancomycin HCl 500 mg/ Sodium (Chloride) 110 mls @ 110 mls/hr IV ONCE ONE Stop: 07/26/22 18:59 Amiodarone HCl 900 mg/ Sodium (Chloride) 518 mls @ 34.533 mls/hr IVCONT .Q15H1M YU; Protocol Last Admin: 07/28/22 00:00 Dose: Not Given Documented By: ELI Non-Admin Reason: IV Running Dobutamine HCl/Dextrose (Dobutrex) 500 mg in 250 mls @ 8.865 mls/hr IVCONT .Q24H YU Last Admin: 07/27/22 15:51 Dose: 2.5 mcg/kg/min, 8.87 mls/hr Documented By: LEONEL Albumin Human (Kedbumin 25 %) 100 mls @ 100 mls/hr IV Q1H YU Stop: 07/28/22 09:29 Insulin Glargine (Insulin Glargine,Hum.Rec.Anlog 100 Unit/Ml 10 Ml Vial) 20 unit SUBCUT BEDTIME YU Last Admin: 07/27/22 20:35 Dose: 20 unit Documented By: DAVID Insulin Human Lispro (Insulin Lispro 100 Unit/Ml 3 Ml Vial) 0 unit SUBCUT Q6H YU; Protocol Last Admin: 07/28/22 05:16 Dose: Not Given Documented By: ELI Non-Admin Reason: No Insulin Coverage Linezolid (Linezolid 600 Mg Tablet) 600 mg PO Q12H [facility] Last Admin: 07/24/22 14:13 Dose: Not Given Documented By: NAYA Non-Admin Reason: Nausea Midodrine (Midodrine Hcl 5 Mg Tablet) 5 mg PO Q8H [facility] Last Admin: 07/28/22 03:53 Dose: 5 mg Documented By: ELI Pantoprazole Sodium (Pantoprazole Sodium 40 Mg/10 Ml Vial) 40 mg IVPUSH BID@0630,1630 [facility] Last Admin: 07/28/22 05:16 Dose: 40 mg Documented By: ELI Pharmacy Consult (Consult Rx Perform Med Rec) 1 each MISCELLANE ONCE PRN PRN Reason: Consult order Sodium Chloride (0.9 % Sodium Chloride Flush 3 Ml Syringe) 3 ml IVFLUSH QSHIFT [facility] Last Admin: 07/28/22 07:38 Dose: 3 ml Documented By: DAVID <Kathy Slaughter PA-C - Last Filed: 07/28/22 13:51> Labs CBC & Chem 7: : 07/28/22 05:00 07/28/22 05:00 <Kathy Slaughter PA-C - Last Filed: 07/28/22 13:51> Labs: Laboratory Results - last 24 hr 07/25/22 07/26/22 07/27/22 16:59 06:23 08:28 MCV MCH MCHC RDW Plt Count MPV Absolute Nucleated RBC Nucleated RBC % (auto) VBG pH VBG pCO2 VBG pO2 VBG HCO3 VBG O2 Saturation VBG Base Excess Anion Gap Estim Creat Clear Calc Estimated GFR POC Glucose Random Glucose Lactic Acid 2.8 H* Calcium Magnesium Total Bilirubin AST ALT Alkaline Phosphatase Troponin I High Sens B-Natriuretic Peptide Total Protein Albumin Stool H. pylori Ag SEE NOTE Random Vancomycin Blood Type A Positive Antibody Screen NEGATIVE Crossmatch See Detail 07/27/22 07/27/22 07/27/22 11:57 12:00 17:55 MCV 86.4 MCH 30.0 MCHC 34.7 RDW 17.2 H Plt Count 50 L D MPV 9.6 Absolute Nucleated RBC 0.050 H Nucleated RBC % (auto) 0.3 H VBG pH VBG pCO2 VBG pO2 VBG HCO3 VBG O2 Saturation VBG Base Excess Anion Gap Estim Creat Clear Calc Estimated GFR POC Glucose 217 H Random Glucose Lactic Acid Calcium Magnesium Total Bilirubin AST ALT Alkaline Phosphatase Troponin I High Sens B-Natriuretic Peptide Total Protein Albumin Stool H. pylori Ag Random Vancomycin 14.7 L Blood Type Antibody Screen Crossmatch 07/27/22 07/27/22 07/27/22 17:58 21:35 21:35 MCV 85.6 MCH 29.2 MCHC 34.1 RDW 17.1 H Plt Count 21 L D MPV 10.7 Absolute Nucleated RBC 0.040 H Nucleated RBC % (auto) 0.3 H VBG pH VBG pCO2 VBG pO2 VBG HCO3 VBG O2 Saturation VBG Base Excess Anion Gap Estim Creat Clear Calc Estimated GFR POC Glucose 175 H Random Glucose Lactic Acid 2.2 H* Calcium Magnesium Total Bilirubin AST ALT Alkaline Phosphatase Troponin I High Sens B-Natriuretic Peptide Total Protein Albumin Stool H. pylori Ag Random Vancomycin Blood Type Antibody Screen Crossmatch 07/27/22 07/28/22 07/28/22 23:58 05:00 05:00 MCV 86.8 MCH 29.6 MCHC 34.1 RDW 16.9 H Plt Count 27 L D MPV 10.6 Absolute Nucleated RBC 0.000 Nucleated RBC % (auto) 0.0 VBG pH VBG pCO2 VBG pO2 VBG HCO3 VBG O2 Saturation VBG Base Excess Anion Gap 16 Estim Creat Clear Calc 43.6 Estimated GFR 29 POC Glucose 149 H Random Glucose 77 Lactic Acid Calcium 7.6 L Magnesium 1.9 Total Bilirubin 2.4 H AST 156 H ALT 288 H Alkaline Phosphatase 108 Troponin I High Sens B-Natriuretic Peptide Total Protein 4.9 L Albumin 3.2 L Stool H. pylori Ag Random Vancomycin Blood Type Antibody Screen Crossmatch 07/28/22 07/28/22 07/28/22 05:00 05:00 05:00 MCV MCH MCHC RDW Plt Count MPV Absolute Nucleated RBC Nucleated RBC % (auto) VBG pH VBG pCO2 VBG pO2 VBG HCO3 VBG O2 Saturation VBG Base Excess Anion Gap Estim Creat Clear Calc Estimated GFR POC Glucose Random Glucose Lactic Acid 2.3 H* Calcium Magnesium Total Bilirubin AST ALT Alkaline Phosphatase Troponin I High Sens 1946.8 H* B-Natriuretic Peptide 3946 H Total Protein Albumin Stool H. pylori Ag Random Vancomycin Blood Type Antibody Screen Crossmatch 07/28/22 07/28/22 05:02 05:12 MCV MCH MCHC RDW Plt Count MPV Absolute Nucleated RBC Nucleated RBC % (auto) VBG pH 7.39 VBG pCO2 44 VBG pO2 39 VBG HCO3 27 H VBG O2 Saturation 63.0 VBG Base Excess 2.0 Anion Gap Estim Creat Clear Calc Estimated GFR POC Glucose 84 Random Glucose Lactic Acid Calcium Magnesium Total Bilirubin AST ALT Alkaline Phosphatase Troponin I High Sens B-Natriuretic Peptide Total Protein Albumin Stool H. pylori Ag Random Vancomycin Blood Type Antibody Screen Crossmatch <Kathy Slaughter PA-C - Last Filed: 07/28/22 13:51> Procedures Date of Service Date of Service: 07/28/22 <Kathy Slaughter PA-C - Last Filed: 07/28/22 13:51> Progress Note: A&P Assessment and plan (1) Anasarca: Status: Acute <Kathy Slaughter PA-C - Last Filed: 07/28/22 13:51> (2) Sacral osteomyelitis: Status: Acute <Kathy Slaughter PA-C - Last Filed: 07/28/22 13:51> Assessment and Plan: Wound VAC applied, with VeraFlo May have problems with seal on the gluteal cleft If this does not work, will have to go back to daily dressing changes with wet to dry Seen and examined independently <Saud Vidales MD - Last Filed: 07/28/22 14:24> (3) Stage IV pressure ulcer of sacral region: Status: Acute <Kathy Slaughter PA-C - Last Filed: 07/28/22 13:51> Assessment and Plan: Sacral ulcer debrided 07/26/22 Currently undergoing dialysis Will return later to apply veraflow wound VAC today Remains on the ventilator and critically ill Diffuse anasarca with weeping skin Dressing changed this afternoon, ulcer with bone present at base of the wound centrally, some surrounding exudate and necrosis however has persistent thrombocytopenia so further debridement held. Veraflo wound vac placed, currently with seal but did take extensive covering of sponge- extended taping over the anus and laterally on each side down buttocks/leg to extend beyond significantly weeping area/cleft to get good seal- xeroform placed over the anus. Dianne bolster placed to provide pressure to help with seal. Settings: 20cc normal saline irrigation, 5 minute soak, 2h vac. if has leak, may need to go back to wet to dry dressings at site as it is very difficulty area to obtain seal and skin is weeping. <Kathy Slaughter PA-C - Last Filed: 07/28/22 13:51> Time Spent With Patient Time: Total time spent is greater than 50% in coordination of care (as documented) at patient's floor/unit and/or counseling patient: <Kathy Slaughter PA-C - Last Filed: 07/28/22 13:51> Quality Stroke Does the patient have a stroke diagnosis?: No <Kathy Slaughter PA-C - Last Filed: 07/28/22 13:51> VTE Prior VTE?: No <Kathy Slaughter PA-C - Last Filed: 07/28/22 13:51> VTE Risk Level:: Medical - moderate - high <Kathy Slaughter PA-C - Last Filed: 07/28/22 13:51> VTE Device Contraindication: Treatment Not Indicated <Kathy Slaughter PA-C - Last Filed: 07/28/22 13:51> VTE Drug Contraindication: Treatment Not Indicated (contraindicated; UGI bleed) <Kathy Slaughter PA-C - Last Filed: 07/28/22 13:51>
[2022-07-28] MEDS: Magnesium Sulfate/D5W 1 GM/100 ML PIGGYBACK IV (08:36)
[2022-07-28] MEDS: Chlorhexidine Gluc Oral Rinse 15 ML MOUTHWASH BUCCAL ×3 (08:37→22:06)
[2022-07-28] MEDS: Atorvastatin Calcium 80 MG TABLET G-TUBE (08:37)
[2022-07-28] MEDS: Amiodarone HCL 900 MG in 0.9 % Sodium Chloride 500 ML 17.27 MG IVCONT (08:39)
[2022-07-28 08:43] LABS: ~Lactic Acid-LAB USE ONLY 1.7 mmol/L (0.5-2.0)
--- NOTE | 2022-07-28 10:23 | MHC.CLN ---
F/U: PT REMAINS INTUBATED AND LIGHTLY SEDATED REVIEWED LABS DISCUSSED WITH MD; TOLERATING TF AT 40ML/HR CURRENTLY AND SLOWLY INCREASING UP TO GOAL PT TO RECEIVE TF NEPRO AT MAX GOAL RATE 65ML/HR TO PROVIDE 2808KCALS (30KCALS/KG BASED ON ADMISSION WT), 126G PROTEIN (1.3G/KG FOR WOUND HEALING), 1134ML FREE WATER FROM FORMULA MONITOR TOLERANCE, RESIDUALS AND LYTES
--- NOTE | 2022-07-28 10:35 | W.PM.DNNEP ---
Subjective Subjective This patient was seen during dialysis. Interval history: Remains on vent Physical Exam Vital Signs: Vital Signs: Last Vital Signs Temp 95.9 F L 07/28/22 10:00 Pulse 112 H 07/28/22 10:00 Resp 16 07/28/22 10:00 BP 104/59 L 07/28/22 10:00 Pulse Ox 98 07/28/22 10:00 O2 Del Method 07/28/22 10:00 O2 Flow Rate 2 07/24/22 12:13 FiO2 21 07/28/22 10:00 BMI result Body Mass Index 29.5 Const: General: no acute distress, ill appearing and other (ET tube in place) Eyes: General: appearance normal, both eyes and all related structures Sclerae: sclerae normal Pupils: Equal, round and reactive pupils present Neck: Neck: Yes supple Resp: Auscultation: crackles ( diffuse bilateral) Cardio: Rate: regular rate Heart sounds: no gallops and no murmurs GI: Inspection: Yes distended and Yes other (Ostomy bag is present) Palpation (GI): Soft to palpation Auscultation: normal bowel sounds Rectal Exam - Male: Yes deferred Skin: General skin exam: no rashes or lesions noted Neuro: Cranial nerves: Yes Equal, round and reactive pupils present Motor exam (neuro): no asterixis Extrem: General: Yes normal to inspection, No clubbing and Yes cyanosis (acral) Assessment & Plan Assessment and plan (1) End stage renal disease: Status: Inactive Plan ESRD on HD TTS Volume overload Extra UF tomorrow and as needed Anemia- s/p GI bleed. s/p transufusion Orderded Epogen for tomorrow S/p Cardiac arrest -- PEA arrest, 2? UGI bleed.? - 16 min of CPR. S/P acute NSTEMI.? Cardiogenic shock w shock liver.? Acute Respiratory Failure. ? S/P UGI bleed with hemorrhagic shock.? Concur with other medical management Time Spent With Patient Time: Total time spent is greater than 50% in coordination of care (as documented) at patient's floor/unit and/or counseling patient: Procedures Date of Service Date of Service: 07/28/22
[2022-07-28 11:54] LABS: Glucose, Whole Blood 49 mg/dL (60-115)
[2022-07-28] MEDS: fentaNYL citrate/NS 1,000 MCG/100 ML PLAST..BAG 5 MCG IVCONT (12:59)
[2022-07-28] MEDS: Ketamine HCl/NS 100 MG/10 ML SYRINGE 20 MG IVPUSH (13:01)
[2022-07-28] MEDS: propofoL 1,000 MG/100 ML VIAL 11.52 MG IVCONT (13:06)
[2022-07-28 14:42] LABS: Glucose, Whole Blood 74 mg/dL (60-115)
[2022-07-28 15:37] LABS: Vancomycin Random 11.6 mcg/mL (15-20)
--- NOTE | 2022-07-28 15:54 | MHC.CM.PN ---
Pt continues care in ICU including HD, extensive wound care, and ventilatory support. Clinical updates remitted to LTAC selections. CM to follow for placement needs.
[2022-07-28 16:24] LABS: Glucose, Whole Blood 74 mg/dL (60-115)
[2022-07-28] MEDS: DOBUTamine HCL/D5W 500 MG/250 ML IV.SOLN 8.87 MG IVCONT (17:04)
[2022-07-28 17:07] LABS: Immature Retic Fraction 5.5 % (2.3-13.4); Retic HGB Equivalent 36.9 pg (30.0-35.0); Reticulocyte Percent 0.7 % (0.5-1.8); Reticulocytes Absolute 0.023 X10*6/uL (0.026-0.095)
[2022-07-28] MEDS: vancomycin HCL 500 MG in 0.9 % Sodium Chloride 100 ML 110 MG IV (17:14)
[2022-07-28 17:35] LABS: INTERNATIONAL NORM RATIO 1.5 (0.9-1.1); Lactate Dehydrogenase 305 U/L (118-273)
[2022-07-28 17:37] LABS: D Dimer High Sensitivity 1297 NG/ML; Partial Thromboplastin Time 34.2 SEC (26.0-36.4)
[2022-07-28 18:04] LABS: Glucose, Whole Blood 65 mg/dL (60-115)
[2022-07-28] MEDS: Dextrose 50 % 25 GM/50 ML SYRINGE IVPUSH ×2 (18:15→21:08)
[2022-07-28 18:39] LABS: Glucose, Whole Blood 137 mg/dL (60-115)
--- NOTE | 2022-07-28 19:04 | PM.CCPN ---
Subjective Subjective Date of Service: 07/28/22 Interval History: Mr. Andujar was admitted to the ICU on 07/24/2022 after PEA arrest on the floor. The patient is a 67-year-old gentleman with underlying diabetes mellitus, CKD and ischemic heart failure, SP CABG about 8-10 years ago, followed by ICD placement.? Over last year or so, EF was reportedly about 40%.? His CKD was progressing and he had discussions with his entry examiner ([facility]) about ultimately needing HD.? 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 The diuretics no longer worked. He was admitted to [facility] for edema management in March.? Everything went downhill from there, and he was started on HD.? At some point he developed a decubitus ulcer.? He spent approximately 3 weeks at [facility] and was then transferred to [facility] for rehab.? After 3 weeks at [facility], he was admitted to [facility] for management of sepsis from the Decubitus ulcer.? Then went back to [facility] and since then, been back at [facility] and [facility] for further management of sepsis, the decubitus, and renal failure, including two surgeries for the decubitus, including a diverting colostomy done approximately about 8 weeks ago at [facility]. Currently PMHx additionally includes ESRD on hemodialysis, protein calorie malnutrition, coronary artery disease status post CABG, ischemic cardiomyopathy with EF of 40-45%, status post AICD, PAfib, osteomyelitis of stage IV sacral decubitus ulcer, discoid lupus, and diverting colostomy. On 07/11/2022, he was BIBA to [facility] after developing chest pain. There was no evidence of ACS. He was admitted to the medical floor for stage IV decubitus ulcer/osteomyelitis meeting sepsis criteria and ESRD, and given empiric abx.? His hospital course since then had been relatively stable, and his discharge was being planned.? He'd had a chronic leukocytosis over the last few months secondary to the osteomyelitis; his WBC remained elevated despite completing a prior course of IV antibiotics.? Most recently Dr. Stein recommended IV meropenem and PO zyvox for 6 weeks. He'd been followed by surgery s/p debridement; preventative measures in place with frequent turning, and appropriate bed. TPN was initiated to promote wound healing.? He was continued on his T-Th-Mon HD schedule. Due to vomiting, he had an xray that showed dilated stomach but no evidence of bowel obstruction. That clinically seems to have resolved. He had intermittent tachycardia and paroxysmal AFIB controlled with Metoprolol 25mg tid. On Jul 24, the bicarb level on his routine morning labs was low.? A lactate level was checked and came back very high.? While the patient was being evaluated he went into a PEA arrest.? CPR and ACLS administered.? He had ROSC after four rounds of epinephrine.? No shocks were required.? The duration of CPR was approximately 16 minutes.? He was intubated during the CPR and transferred to intensive care unit. He did show signs of awakening after CPR and required sedation.? NGT placement after tx to ICU showed blood.? Hb was 3.5 (c/w 8.1 one week prior).? He was vol resusc with blood and crystalloid.? Thru that nite he required Levophed and a bicarb drip and his lactates remained elevated in the 15 range. The following day (Jul 25), he had a persistent metabolic and lactic acidoses in the 14 range, which began to improve in the evening.? His levophed requirement came down slowly and after propofol was turned off he had consistent eye opening to command.? FiO2 was down to 30%. Monday he was eye opening more expressively than the previous day.? Later in the day he was inconsistently turning his head to voice and squeezing a hand, but not quite purposeful.? We started him on dobutamine 25ug and his BP went up, Levophed requirement went down.? Dr. Vidales debrided the sacral wound at the bedside.? There was not much to debride, it was mostly bone.? No gross infection, no odor.? We put a Kaofeed tube down and started tube feeds.? We started him on amiodarone for heart rate control of AFib with RVR, and early the next morning he converted to SR. Yesterday, the patient was much more expressive and interactive altho still not 100% consistently.? We tried slowing his HR with low-dose esmolol, but his BP dropped precipitously, so that was abandoned.? On echo, the LV looked noticeably smaller (qualitatively) and wall motion was noticeably improved compared to echo.? EF looked like it might be as much as 20%.? Also, EKG today showed return of R waves in V2 and V3 compared to the EKG on Jul 25.? And at onset of HD yesterday, BP was a lot less labile. Hemodynamics were steady overnight last night.? This morning on HD he was even more stable.? Low dose Levophed came off completely after HD.? Early this afternoon after hemodialysis, watched Dr. Vidales put the wound VAC in his sacral wound.? The patient continues to lose Hb, so I dropped a [place] sump.? There was no blood or coffee grounds in the yellow gastric aspirate.? Sent him to abdominal CT, there was no evidence of intraabdominal hemorrhage.? I asked Dr. Petersen to see him in regards to the ongoing blood loss and his thrombocytopenia.? We?ve sent labs off. This evening w propofol off for about 3 hours, he arouses and tracks easily, without prompting.? Squeezes his hand, nods his head, gives me a thumbs up on command readily and consistently.? Currently only on fentanyl 50ug, Amiodarone gtt, dobutamine 2.5ug.? HR 113, SR.? BP 132/75.? On PSV 14/+5/25%, RR 14, Vt 300-700cc, Ve7.8L, PIP 19cm, ETCO2 28mm, SpO2 100%.? CVBG this morning 7.39/44/+2.? Afebrile.? Light rhonchi, normal exp phase.? Reg rhythm -- sinus with PVCs.? No murmurs or gallops.? The abdomen is nondistended.? The ostomy bag has red/brown liquid with an edematous prolapse of the loop colostomy.? He has gross anasarca from the neck down, at least 3+.? The inferior magin of his large (grapefruit-sized) stage IV decubitus ulcer that bled yesterday was completely dry today. LABORATORY DATA:? Below.? Notably, Hgb is 8.5 this morning after 2 units RBCs last two days. ?Plat count is 27K after 3 bags of platelets yesterday, INR is down to 1.5 after 50mg total Vit K, Lactate down to 1.7.? Trop down to 1940 and BNP is down to 3946.? Alb 3.2 (after albumin infusion). EGD 07/25:? Erosive esophagitis; multiple chronic appearing 4-5 mm ulcers in the duodenal bulb; a 2 cm non-bleeding ulcer with yellow exudate at the base of the duodenal bulb with a visible vessel - one hemoclip was applied.? No blood or active bleeding seen in the UGI tract during EGD and no biopsies were obtained. IMPRESSION: 1. Underlying systolic ischemic CMOP. 2. S/p Cardiac arrest -- PEA arrest, 2? UGI bleed.? Likely never had full cessation of spont circulation, judging by his rapid return of mental status after 16 min of CPR. 3. Acute NSTEMI.? Based on the troponin bump, the EKG changes (loss of precordial R waves), and the marked loss of ventricular function on echo.? Started on Lipitor 80mg.? Tried beta willow but he was too unstable.? No anticoagulation or ASA bec of GI bleed. 4. Cardiogenic shock w shock liver.? Improving, based on all the numbers -- improving BP, Levophed is off, improving ventricular size and fxn on echo, lactate resolved, INR is improving. 5. Underlying ESRD on HD with refractory anasarca.? daily dialysis this week. 6. Acute Respiratory Failure. ?Intubated during the CPR. ?Oxgenation is perfect.? Continue ventilatory support as necessary.? Mental status insufficient today, might be extubatable tomorrow. 7. Chronic large stage 4 sacral decubitus with chronic osteomyelitis, s/p diverting sigmoid loop colostomy. ?Woundvac is on. 8. S/P UGI bleed with hemorrhagic shock.? Continue high dose PPI.? Transfuse to Hgb > 9. ?Procrit. 9. Anoxic encephalopathy.? Improving. 10. Coagulopathy.? 2? hepatic failure.? Vit K 50 mg total given.? INR is improving as his liver improves w resolution of cardiogenic shock. 11. AFib w RVR.? Cardioverted w amiodarone.? At the suggestion of Dr. Williamson from the heart failure service, we won?t try to reduce his HR now that he?s in SR.? Need the HR to compensate for his low CO. Continue amiodarone. 12. ID: Continue meropenam and vanco for osteomyelitis, per ID recs. 13. Diabetes mellitus. SS insulin.? Started him on Lantus, but he had a number of low POCs today.? D/C the Lantus. 14. Anemia with acute Hb loss.? D/W Dr. Pineda. Source is undermined.? W/U (including hemolysis) in progress. 15. Thrombocytopenia.? Seems like consumption.? W/U in progress. 16. Nutrition.? Advancing tube feeds.? Nepro via Kaofeed tube.? D/C?d the TPN. Spoke again twice with and Dr. Lamont Williamson at the heart failure service.? Reviewed his progress in depth.? They would be possibly willing to take him if his MS improves.? Will reeval tomorrow. Spoke with family again and updated treatment and prognosis. Critical Care Time: 110+ min. Critical Care Time (minutes): 110 Physical Exam Vital Signs: Vital Signs: Last Vital Signs Temp 95.9 F L 07/28/22 18:00 Pulse 114 H 07/28/22 18:00 Resp 12 07/28/22 18:00 BP 131/84 07/28/22 18:00 Pulse Ox 100 07/28/22 18:00 O2 Del Method 07/28/22 18:00 O2 Flow Rate 2 07/24/22 12:13 FiO2 21 07/28/22 18:00 BMI result Body Mass Index 29.5 Objective Data Labs CBC & Chem 7: 07/28/22 05:00 07/28/22 05:00 Labs: Laboratory Results - last 24 hr 07/25/22 07/27/22 07/27/22 16:59 21:35 21:35 WBC 15.4 H RBC 2.91 L Hgb 8.5 L Hct 24.9 L MCV 85.6 MCH 29.2 MCHC 34.1 RDW 17.1 H Plt Count 21 L D MPV 10.7 Absolute Nucleated RBC 0.040 H Nucleated RBC % (auto) 0.3 H Absolute Retic Percent Retic Immature Retic Fraction Retic Hgb Equivalent PT INR APTT D-Dimer High Sensitivty VBG pH VBG pCO2 VBG pO2 VBG HCO3 VBG O2 Saturation VBG Base Excess Sodium Potassium Chloride Carbon Dioxide Anion Gap BUN Creatinine Estim Creat Clear Calc Estimated GFR POC Glucose Random Glucose Lactic Acid 2.2 H* Lactic Acid F/U @ 2Hr Calcium Magnesium Total Bilirubin AST ALT Alkaline Phosphatase Lactate Dehydrogenase Troponin I High Sens B-Natriuretic Peptide Total Protein Albumin Random Vancomycin Blood Type A Positive Antibody Screen NEGATIVE Crossmatch See Detail 07/27/22 07/28/22 07/28/22 23:58 05:00 05:00 WBC 13.8 H RBC 2.87 L Hgb 8.5 L Hct 24.9 L MCV 86.8 MCH 29.6 MCHC 34.1 RDW 16.9 H Plt Count 27 L D MPV 10.6 Absolute Nucleated RBC 0.000 Nucleated RBC % (auto) 0.0 Absolute Retic Percent Retic Immature Retic Fraction Retic Hgb Equivalent PT INR APTT D-Dimer High Sensitivty VBG pH VBG pCO2 VBG pO2 VBG HCO3 VBG O2 Saturation VBG Base Excess Sodium 135 Potassium 3.3 Chloride 97 Carbon Dioxide 25 Anion Gap 16 BUN 62 H Creatinine 2.26 H Estim Creat Clear Calc 43.6 Estimated GFR 29 POC Glucose 149 H Random Glucose 77 Lactic Acid Lactic Acid F/U @ 2Hr Calcium 7.6 L Magnesium 1.9 Total Bilirubin 2.4 H AST 156 H ALT 288 H Alkaline Phosphatase 108 Lactate Dehydrogenase Troponin I High Sens B-Natriuretic Peptide Total Protein 4.9 L Albumin 3.2 L Random Vancomycin Blood Type Antibody Screen Crossmatch 07/28/22 07/28/22 07/28/22 05:00 05:00 05:00 WBC RBC Hgb Hct MCV MCH MCHC RDW Plt Count MPV Absolute Nucleated RBC Nucleated RBC % (auto) Absolute Retic Percent Retic Immature Retic Fraction Retic Hgb Equivalent PT INR APTT D-Dimer High Sensitivty VBG pH VBG pCO2 VBG pO2 VBG HCO3 VBG O2 Saturation VBG Base Excess Sodium Potassium Chloride Carbon Dioxide Anion Gap BUN Creatinine Estim Creat Clear Calc Estimated GFR POC Glucose Random Glucose Lactic Acid 2.3 H* Lactic Acid F/U @ 2Hr Calcium Magnesium Total Bilirubin AST ALT Alkaline Phosphatase Lactate Dehydrogenase Troponin I High Sens 1946.8 H* B-Natriuretic Peptide 3946 H Total Protein Albumin Random Vancomycin Blood Type Antibody Screen Crossmatch 07/28/22 07/28/22 07/28/22 05:02 05:12 08:25 WBC RBC Hgb Hct MCV MCH MCHC RDW Plt Count MPV Absolute Nucleated RBC Nucleated RBC % (auto) Absolute Retic Percent Retic Immature Retic Fraction Retic Hgb Equivalent PT INR APTT D-Dimer High Sensitivty VBG pH 7.39 VBG pCO2 44 VBG pO2 39 VBG HCO3 27 H VBG O2 Saturation 63.0 VBG Base Excess 2.0 Sodium Potassium Chloride Carbon Dioxide Anion Gap BUN Creatinine Estim Creat Clear Calc Estimated GFR POC Glucose 84 Random Glucose Lactic Acid Lactic Acid F/U @ 2Hr 1.7 Calcium Magnesium Total Bilirubin AST ALT Alkaline Phosphatase Lactate Dehydrogenase Troponin I High Sens B-Natriuretic Peptide Total Protein Albumin Random Vancomycin Blood Type Antibody Screen Crossmatch 07/28/22 07/28/22 07/28/22 11:50 12:56 15:03 WBC RBC Hgb Hct MCV MCH MCHC RDW Plt Count MPV Absolute Nucleated RBC Nucleated RBC % (auto) Absolute Retic Percent Retic Immature Retic Fraction Retic Hgb Equivalent PT INR APTT D-Dimer High Sensitivty VBG pH VBG pCO2 VBG pO2 VBG HCO3 VBG O2 Saturation VBG Base Excess Sodium Potassium Chloride Carbon Dioxide Anion Gap BUN Creatinine Estim Creat Clear Calc Estimated GFR POC Glucose 49 L* 74 Random Glucose Lactic Acid Lactic Acid F/U @ 2Hr Calcium Magnesium Total Bilirubin AST ALT Alkaline Phosphatase Lactate Dehydrogenase Troponin I High Sens B-Natriuretic Peptide Total Protein Albumin Random Vancomycin 11.6 L Blood Type Antibody Screen Crossmatch 07/28/22 07/28/22 07/28/22 16:20 16:47 16:47 WBC RBC Hgb Hct MCV MCH MCHC RDW Plt Count MPV Absolute Nucleated RBC Nucleated RBC % (auto) Absolute Retic 0.023 L Percent Retic 0.7 Immature Retic Fraction 5.5 Retic Hgb Equivalent 36.9 H PT 18.0 H INR 1.5 H APTT 34.2 D-Dimer High Sensitivty 1297 VBG pH VBG pCO2 VBG pO2 VBG HCO3 VBG O2 Saturation VBG Base Excess Sodium Potassium Chloride Carbon Dioxide Anion Gap BUN Creatinine Estim Creat Clear Calc Estimated GFR POC Glucose 74 Random Glucose Lactic Acid Lactic Acid F/U @ 2Hr Calcium Magnesium Total Bilirubin AST ALT Alkaline Phosphatase Lactate Dehydrogenase Troponin I High Sens B-Natriuretic Peptide Total Protein Albumin Random Vancomycin Blood Type Antibody Screen Crossmatch 07/28/22 07/28/22 07/28/22 16:47 18:00 18:35 WBC RBC Hgb Hct MCV MCH MCHC RDW Plt Count MPV Absolute Nucleated RBC Nucleated RBC % (auto) Absolute Retic Percent Retic Immature Retic Fraction Retic Hgb Equivalent PT INR APTT D-Dimer High Sensitivty VBG pH VBG pCO2 VBG pO2 VBG HCO3 VBG O2 Saturation VBG Base Excess Sodium Potassium Chloride Carbon Dioxide Anion Gap BUN Creatinine Estim Creat Clear Calc Estimated GFR POC Glucose 65 137 H Random Glucose Lactic Acid Lactic Acid F/U @ 2Hr Calcium Magnesium Total Bilirubin AST ALT Alkaline Phosphatase Lactate Dehydrogenase 305 H Troponin I High Sens B-Natriuretic Peptide Total Protein Albumin Random Vancomycin Blood Type Antibody Screen Crossmatch Microbiology Microbiology Results: Microbiology 07/11/22 06:35 Blood - Arterial Line Blood Culture - Final No growth after 5 days. 07/11/22 06:35 Blood - Arterial Line Blood Culture - Final No growth after 5 days. Quality Stroke Does the patient have a stroke diagnosis?: No VTE Prior VTE?: No VTE Risk Level:: Medical - moderate - high VTE Device Contraindication: Treatment Not Indicated VTE Drug Contraindication: Treatment Not Indicated (contraindicated; UGI bleed) Critical Care Time Critical Care Time (minutes): 120
--- NOTE | 2022-07-28 19:06 | HE.PHANOTE ---
post dialysis level 11.6 so activated one time order for 500 mg today. recheck level next post dialysis and dose accordingly post dialysis
[2022-07-28 19:15] LABS: Glucose, Whole Blood 100 mg/dL (60-115)
[2022-07-28 21:10] LABS: Glucose, Whole Blood 75 mg/dL (60-115)
[2022-07-28] MEDS: Isosorbide Dinitrate 5 MG TABLET PO (22:02)
[2022-07-28 22:29] LABS: Glucose, Whole Blood 114 mg/dL (60-115)
--- NOTE | 2022-07-28 22:52 | PC.NURSE ---
PATIENT SWITCHED TO PS SETTING AT ROUGHLY 0800. AM DIALYSIS REMOVED 4.6 LITERS. DURING DIALYSIS 1 UNIT PLATLETS, 1 UNIT RBC INFUSED, NO SIGN OF ADVERSE EFFECTS NOTED. LEVOPHED TITRATED OF DURING DIALYSIS, SEE EMAR. DR. SRIVASTAVA AND TWO PA APPLIED WOUND VAC WITH SALINE TO SACRAL WOUND, MEDICATED WITH A 20 MG KETAMINE IVP PRIOR TO APPLICATION. LOW POC THROUGHOUT THE DAY, IVP D50 25GRAMS GIVEN X3, FOLLOWING [facility] PROTOCOL, SEE EMAR. D50 HAVING LIMITED EFFECT THAT LASTED APPROXIMATELY 2-3 HOURS BEFORE ANOTHER AMPOULE WAS NEEDED TO MAINTAIN POC. MD AWARE. PATIENT BROUGHT TO CT FOR ABDOMINAL CT ACCOMPANIED BY RN, PENDING RESULTS. DOBUTAMINE TITRATED DOWN PER PA, SEE EMAR. ISOSORBIDE 5 MG STARTED PER PA, PENDING RESULTS. PATIENT REPOSITIONED Q2HR, FAMILY AND PATIENT UPDATED ON HEALTH STATUS, ROUTINE ORAL CARE PREFORMED, BED BATH PREFORMED.
[2022-07-28 23:41] LABS: Glucose, Whole Blood 97 mg/dL (60-115)
[2022-07-29] VITALS (35 sets, daily range): BP systolic 94–155; BP diastolic 53–79; PULSE 110–119; RESP 10–22; TEMP 34.6–36.2; O2SAT 90–100; BMI 28.5
[2022-07-29] MEDS: Isosorbide Dinitrate 5 MG TABLET PO (00:21)
[2022-07-29 01:55] LABS: Glucose, Whole Blood 91 mg/dL (60-115)
[2022-07-29] MEDS: propofoL 1,000 MG/100 ML VIAL 5.76 MG IVCONT (02:39)
[2022-07-29 02:57] LABS: Glucose, Whole Blood 84 mg/dL (60-115)
[2022-07-29 05:28] LABS: VBG Base Excess 1.9 mmol/L; VBG HCO3 26 mmol/L (22-26); VBG pCO2 41 mmHg; VBG pH 7.41 (7.32-7.43); VBG pO2 44 mmHg
[2022-07-29 05:29] LABS: MANUAL DIFF FLAG NO
[2022-07-29 05:32] LABS: Basophils Percent Auto 0.3 % (0-2); Eosinophils Percent Auto 0.1 % (0-4); Hematocrit 28.2 % (42.0-52.0); Hemoglobin 9.8 g/dl (14.0-18.0); Imm Gran Abs Auto 0.12 X10*3/uL (0.00-0.03); Lymphocytes Absolute Auto 0.3 X10*3/uL (1.2-4.9); Lymphocytes Percent Auto 2.2 % (20-40); Mean Corpuscular HGB Conc 34.8 g/dl (31.0-36.0); Mean Corpuscular Hemoglobin 30.6 pg (27.0-33.0); Mean Corpuscular Volume 88.1 fL (80.0-98.0); Mean Platelet Volume 12.5 fL (9.4-12.4); Monocytes Absolute Auto 0.8 X10*3/uL (0.1-1.2); Monocytes Percent Auto 6.6 % (2-11); Neutrophils Absolute Auto 11.3 x10*3/uL (2.0-8.3); Neutrophils Percent Auto 89.8 % (45-73); Red Cell Distribution Width 17.4 % (11.0-16.0); White Blood Count 12.6 X10*3/uL (4.8-10.8)
[2022-07-29 05:34] LABS: Platelet Count 21 X10*3/uL (160-400)
[2022-07-29] MEDS: Pantoprazole Sodium 40 MG/10 ML VIAL IVPUSH ×2 (05:39→17:47)
[2022-07-29 05:58] LABS: B Type Natriuretic Peptide 4134 pg/mL (<100)
--- NOTE | 2022-07-29 06:03 | PC.NURSE ---
CARE ASSUMED 23:15...REMAINS INTUBATED...VCV VENT SUPPORT AT HS...PROPOFOL 10 MCG/KG/MIN & [id number] MCG/HR...AWAKE TO VERBAL STIMULI...NODS YES/NO TO SIMPLE QUESTIONS...CANDELARIA TO COMMAND..SHAKES HEAD NO TO PAIN....TUBE FEEDS NEPRO 60 CC/HR VIA KAOFEED TUBE AT HS...300ml RESIDUAL ASPIRATED FROM [employer]AOFEED...TUBE FEEDS HELD PER ICU PA.....PROPOFOL HELD APPROX 3AM PER PA....FENTANYL CONTINUED 25 MCG/HR...RESTFUL OFF PROPOFOL..NEURO STATUS UNCHANGED...RT CHANGED VENT TO CPAP 5/PSV 14/FIO2 30% (FIO2 PREVIOUSLY TITRATED FROM 21% TO 30% BY RT)...Ve 8-8.5 L/M ON CPAP/PSV VENT SUPPORT..NO DISTRESS....POC GLUCOSE SERIAL CHECKS STABLE OVERNIGHT..REMAINS S.TACH HR 112-116..OCCASSIONAL PVC'S..DENIES PAIN WHEN AWAKE...WOUND VAC REMAINS TO COCCYX/SACRAL ULCER
[2022-07-29 06:04] LABS: Alanine Aminotransferase 203 U/L (0-40); Albumin Level 3.1 g/dL (3.5-5.0); Alkaline Phosphatase 126 U/L (39-117); Anion Gap 14 (12-20); Aspartate Amino Transferase 92 U/L (5-37); Bilirubin Total 2.2 mg/dL (0.0-1.0); Blood Urea Nitrogen 40 mg/dL (9-16); Calcium 8.1 mg/dL (8.4-10.2); Carbon Dioxide 24 mmol/L (22-29); Chloride 99 mmol/L (96-108); Creatinine Clr Calc Pharmacy 53.6; Estimated Glomerular Filt Rate 37; Glucose Random 95 mg/dL (60-115); Magnesium 1.9 mg/dL (1.6-2.6); Phosphorus 2.7 mg/dL (2.7-4.5); Potassium 3.5 mmol/L (3.3-5.1); Sodium 133 mmol/L (135-145); Total Protein 4.9 g/dL (6.5-8.0)
[2022-07-29 06:46] LABS: Venous Blood Gas Refer to POC result
[2022-07-29 08:01] LABS: Glucose, Whole Blood 94 mg/dL (60-115)
[2022-07-29] MEDS: 0.9 % Sodium Chloride Flush 3 ML SYRINGE IVFLUSH ×2 (08:17→17:43)
[2022-07-29] MEDS: Atorvastatin Calcium 80 MG TABLET G-TUBE (08:17)
[2022-07-29] MEDS: Isosorbide Dinitrate 10 MG TABLET PO ×2 (08:17→14:24)
[2022-07-29] MEDS: Chlorhexidine Gluc Oral Rinse 15 ML MOUTHWASH BUCCAL ×2 (08:17→14:24)
--- NOTE | 2022-07-29 09:16 | PM.PNGS ---
Subjective Subjective Date of Service: 07/29/22 Interval history: Remains intubated. Physical Exam Vital Signs: Vital Signs: Last Vital Signs Temp 96.3 F L 07/29/22 08:00 Pulse 118 H 07/29/22 09:00 Resp 12 07/29/22 09:00 BP 113/74 07/29/22 09:00 Pulse Ox 100 07/29/22 09:00 O2 Del Method 07/29/22 09:00 O2 Flow Rate 2 07/24/22 12:13 FiO2 30 07/29/22 09:00 BMI result Body Mass Index 28.5 Resp: Other: intubated, on vent Back/Spine/Pelvis: Other: wound vac remains in place to sacral decubitus with good seal Skin: Other: diffusely weeping Extrem: Other: anasarca Objective Data Active Medications Atorvastatin Calcium (Atorvastatin Calcium 80 Mg Tablet) 80 mg G-TUBE DAILY [facility] Last Admin: 07/29/22 08:17 Dose: 80 mg Documented By: DAVID Chlorhexidine Gluconate (Chlorhexidine Gluc Oral Rinse 15 Ml Mouthwash) 15 ml BUCCAL TID [facility] Last Admin: 07/29/22 08:17 Dose: 15 ml Documented By: DAVID Dextrose (Dextrose 50 % 25 Gm/50 Ml Syringe) 25 gm IVPUSH Q15M PRN; Protocol PRN Reason: per Hypoglycemia Standing Ord. Last Admin: 07/28/22 21:08 Dose: 25 gm Documented By: DAVID Epoetin Wai (Epoetin Wai 20,000 Unit/Ml Vial) 20,000 unit SUBCUT ONCE ONE Stop: 07/29/22 10:01 Meropenem 500 mg/ Sodium (Chloride) 50 mls @ 100 mls/hr IV Q24H [facility] Stop: 08/23/22 23:29 Last Infusion: 07/29/22 01:18 Dose: 0 mls/hr Documented By: ELI Propofol (Diprivan) 1,000 mg in 100 mls @ 0 mls/hr IVCONT .Q0M [facility]; Protocol Last Titration: 07/29/22 03:16 Dose: 0 mcg/kg/min, 0 mls/hr Documented By: ELI Fentanyl (Sublimaze/Ns) 1,000 mcg in 100 mls @ 0 mls/hr IVCONT .Q0M [facility]; Protocol Last Titration: 07/28/22 20:18 Dose: 25 mcg/hr, 2.5 mls/hr Documented By: DAVID Norepinephrine Bitartrate (Levophed) 8 mg in 250 mls @ 0 mls/hr IVCONT .Q0M YU; Protocol Last Titration: 07/28/22 09:35 Dose: 0 mcg/kg/min, 0 mls/hr Documented By: DAVID Amiodarone HCl 900 mg/ Sodium (Chloride) 518 mls @ 34.533 mls/hr IVCONT .Q15H1M YU; Protocol Last Admin: 07/29/22 05:40 Dose: Not Given Documented By: ELI Non-Admin Reason: IV Running Dobutamine HCl/Dextrose (Dobutrex) 500 mg in 250 mls @ 8.865 mls/hr IVCONT .Q24H YU Last Infusion: 07/28/22 21:42 Dose: 2 mcg/kg/min, 7.09 mls/hr Documented By: DAVID Vancomycin HCl 500 mg/ Sodium (Chloride) 110 mls @ 110 mls/hr IV ONCE ONE Stop: 07/28/22 17:08 Insulin Human Lispro (Insulin Lispro 100 Unit/Ml 3 Ml Vial) 0 unit SUBCUT Q6H YU; Protocol Last Admin: 07/29/22 05:41 Dose: Not Given Documented By: ELI Non-Admin Reason: No Insulin Coverage Isosorbide Dinitrate (Isosorbide Dinitrate 10 Mg Tablet) 10 mg PO TID YU; Protocol Last Admin: 07/29/22 08:17 Dose: 10 mg Documented By: DAVID Linezolid (Linezolid 600 Mg Tablet) 600 mg PO Q12H [facility] Last Admin: 07/24/22 14:13 Dose: Not Given Documented By: NAYA Non-Admin Reason: Nausea Midodrine (Midodrine Hcl 5 Mg Tablet) 5 mg PO Q8H [facility] Last Admin: 07/29/22 03:18 Dose: Not Given Documented By: ELI Non-Admin Reason: Physician Held Med Pantoprazole Sodium (Pantoprazole Sodium 40 Mg/10 Ml Vial) 40 mg IVPUSH BID@0630,1630 [facility] Last Admin: 07/29/22 05:39 Dose: 40 mg Documented By: ELI Pharmacy Consult (Consult Rx Perform Med Rec) 1 each MISCELLANE ONCE PRN PRN Reason: Consult order Sodium Chloride (0.9 % Sodium Chloride Flush 3 Ml Syringe) 3 ml IVFLUSH QSHIFT [facility] Last Admin: 07/29/22 08:17 Dose: 3 ml Documented By: DAVID Labs CBC & Chem 7: 07/29/22 05:17 07/29/22 05:17 Labs: Laboratory Results - last 24 hr 07/25/22 07/28/22 07/28/22 16:59 11:50 12:56 MCV MCH MCHC RDW Plt Count MPV Immature Gran % (Auto) Neut % (Auto) Lymph % (Auto) [place] % (Auto) Eos % (Auto) Baso % (Auto) Lymph # (Auto) [place] # (Auto) Eos # (Auto) Baso # (Auto) Abs Immat Gran (auto) Absolute Neuts (auto) Absolute Nucleated RBC Nucleated RBC % (auto) Absolute Retic Percent Retic Immature Retic Fraction Retic Hgb Equivalent PT INR APTT D-Dimer High Sensitivty VBG pH VBG pCO2 VBG pO2 VBG HCO3 VBG O2 Saturation VBG Base Excess Anion Gap Estim Creat Clear Calc Estimated GFR POC Glucose 49 L* 74 Random Glucose Calcium Phosphorus Magnesium Total Bilirubin AST ALT Alkaline Phosphatase Lactate Dehydrogenase Troponin I High Sens B-Natriuretic Peptide Total Protein Albumin Random Vancomycin DEWAYNE, Polyspecific Positive DEWAYNE Work-up Crossmatch See Detail 07/28/22 07/28/22 07/28/22 15:03 16:20 16:47 MCV MCH MCHC RDW Plt Count MPV Immature Gran % (Auto) Neut % (Auto) Lymph % (Auto) [place] % (Auto) Eos % (Auto) Baso % (Auto) Lymph # (Auto) [place] # (Auto) Eos # (Auto) Baso # (Auto) Abs Immat Gran (auto) Absolute Neuts (auto) Absolute Nucleated RBC Nucleated RBC % (auto) Absolute Retic 0.023 L Percent Retic 0.7 Immature Retic Fraction 5.5 Retic Hgb Equivalent 36.9 H PT INR APTT D-Dimer High Sensitivty VBG pH VBG pCO2 VBG pO2 VBG HCO3 VBG O2 Saturation VBG Base Excess Anion Gap Estim Creat Clear Calc Estimated GFR POC Glucose 74 Random Glucose Calcium Phosphorus Magnesium Total Bilirubin AST ALT Alkaline Phosphatase Lactate Dehydrogenase Troponin I High Sens B-Natriuretic Peptide Total Protein Albumin Random Vancomycin 11.6 L DEWAYNE, Polyspecific Positive DEWAYNE Work-up Crossmatch 07/28/22 07/28/22 07/28/22 16:47 16:47 16:47 MCV MCH MCHC RDW Plt Count MPV Immature Gran % (Auto) Neut % (Auto) Lymph % (Auto) [place] % (Auto) Eos % (Auto) Baso % (Auto) Lymph # (Auto) [place] # (Auto) Eos # (Auto) Baso # (Auto) Abs Immat Gran (auto) Absolute Neuts (auto) Absolute Nucleated RBC Nucleated RBC % (auto) Absolute Retic Percent Retic Immature Retic Fraction Retic Hgb Equivalent PT 18.0 H INR 1.5 H APTT 34.2 D-Dimer High Sensitivty 1297 VBG pH VBG pCO2 VBG pO2 VBG HCO3 VBG O2 Saturation VBG Base Excess Anion Gap Estim Creat Clear Calc Estimated GFR POC Glucose Random Glucose Calcium Phosphorus Magnesium Total Bilirubin AST ALT Alkaline Phosphatase Lactate Dehydrogenase 305 H Troponin I High Sens B-Natriuretic Peptide Total Protein Albumin Random Vancomycin DEWAYNE, Polyspecific NEGATIVE Positive DEWAYNE Work-up TNP Crossmatch 07/28/22 07/28/22 07/28/22 18:00 18:35 19:09 MCV MCH MCHC RDW Plt Count MPV Immature Gran % (Auto) Neut % (Auto) Lymph % (Auto) [place] % (Auto) Eos % (Auto) Baso % (Auto) Lymph # (Auto) [place] # (Auto) Eos # (Auto) Baso # (Auto) Abs Immat Gran (auto) Absolute Neuts (auto) Absolute Nucleated RBC Nucleated RBC % (auto) Absolute Retic Percent Retic Immature Retic Fraction Retic Hgb Equivalent PT INR APTT D-Dimer High Sensitivty VBG pH VBG pCO2 VBG pO2 VBG HCO3 VBG O2 Saturation VBG Base Excess Anion Gap Estim Creat Clear Calc Estimated GFR POC Glucose 65 137 H 100 Random Glucose Calcium Phosphorus Magnesium Total Bilirubin AST ALT Alkaline Phosphatase Lactate Dehydrogenase Troponin I High Sens B-Natriuretic Peptide Total Protein Albumin Random Vancomycin DEWAYNE, Polyspecific Positive DEWAYNE Work-up Crossmatch 07/28/22 07/28/22 07/28/22 21:03 22:03 23:37 MCV MCH MCHC RDW Plt Count MPV Immature Gran % (Auto) Neut % (Auto) Lymph % (Auto) [place] % (Auto) Eos % (Auto) Baso % (Auto) Lymph # (Auto) [place] # (Auto) Eos # (Auto) Baso # (Auto) Abs Immat Gran (auto) Absolute Neuts (auto) Absolute Nucleated RBC Nucleated RBC % (auto) Absolute Retic Percent Retic Immature Retic Fraction Retic Hgb Equivalent PT INR APTT D-Dimer High Sensitivty VBG pH VBG pCO2 VBG pO2 VBG HCO3 VBG O2 Saturation VBG Base Excess Anion Gap Estim Creat Clear Calc Estimated GFR POC Glucose 75 114 97 Random Glucose Calcium Phosphorus Magnesium Total Bilirubin AST ALT Alkaline Phosphatase Lactate Dehydrogenase Troponin I High Sens B-Natriuretic Peptide Total Protein Albumin Random Vancomycin DEWAYNE, Polyspecific Positive DEWAYNE Work-up Crossmatch 07/29/22 07/29/22 07/29/22 01:51 02:53 05:17 MCV 88.1 MCH 30.6 MCHC 34.8 RDW 17.4 H Plt Count 21 L MPV 12.5 H Immature Gran % (Auto) 1.0 H Neut % (Auto) 89.8 H Lymph % (Auto) 2.2 L [place] % (Auto) 6.6 Eos % (Auto) 0.1 Baso % (Auto) 0.3 Lymph # (Auto) 0.3 L [place] # (Auto) 0.8 Eos # (Auto) 0.0 Baso # (Auto) 0.0 Abs Immat Gran (auto) 0.12 H Absolute Neuts (auto) 11.3 H Absolute Nucleated RBC 0.000 Nucleated RBC % (auto) 0.0 Absolute Retic Percent Retic Immature Retic Fraction Retic Hgb Equivalent PT INR APTT D-Dimer High Sensitivty VBG pH VBG pCO2 VBG pO2 VBG HCO3 VBG O2 Saturation VBG Base Excess Anion Gap Estim Creat Clear Calc Estimated GFR POC Glucose 91 84 Random Glucose Calcium Phosphorus Magnesium Total Bilirubin AST ALT Alkaline Phosphatase Lactate Dehydrogenase Troponin I High Sens B-Natriuretic Peptide Total Protein Albumin Random Vancomycin DEWAYNE, Polyspecific Positive DEWAYNE Work-up Crossmatch 07/29/22 07/29/22 07/29/22 05:17 05:17 05:17 MCV MCH MCHC RDW Plt Count MPV Immature Gran % (Auto) Neut % (Auto) Lymph % (Auto) [place] % (Auto) Eos % (Auto) Baso % (Auto) Lymph # (Auto) [place] # (Auto) Eos # (Auto) Baso # (Auto) Abs Immat Gran (auto) Absolute Neuts (auto) Absolute Nucleated RBC Nucleated RBC % (auto) Absolute Retic Percent Retic Immature Retic Fraction Retic Hgb Equivalent PT INR APTT D-Dimer High Sensitivty VBG pH VBG pCO2 VBG pO2 VBG HCO3 VBG O2 Saturation VBG Base Excess Anion Gap 14 Estim Creat Clear Calc 53.6 Estimated GFR 37 POC Glucose Random Glucose 95 Calcium 8.1 L D Phosphorus 2.7 Magnesium 1.9 Total Bilirubin 2.2 H AST 92 H ALT 203 H Alkaline Phosphatase 126 H Lactate Dehydrogenase Troponin I High Sens 1810.4 H* D B-Natriuretic Peptide 4134 H Total Protein 4.9 L Albumin 3.1 L Random Vancomycin DEWAYNE, Polyspecific Positive DEWAYNE Work-up Crossmatch 07/29/22 07/29/22 05:22 05:36 MCV MCH MCHC RDW Plt Count MPV Immature Gran % (Auto) Neut % (Auto) Lymph % (Auto) [place] % (Auto) Eos % (Auto) Baso % (Auto) Lymph # (Auto) [place] # (Auto) Eos # (Auto) Baso # (Auto) Abs Immat Gran (auto) Absolute Neuts (auto) Absolute Nucleated RBC Nucleated RBC % (auto) Absolute Retic Percent Retic Immature Retic Fraction Retic Hgb Equivalent PT INR APTT D-Dimer High Sensitivty VBG pH 7.41 VBG pCO2 41 VBG pO2 44 VBG HCO3 26 VBG O2 Saturation 73.0 VBG Base Excess 1.9 Anion Gap Estim Creat Clear Calc Estimated GFR POC Glucose 94 Random Glucose Calcium Phosphorus Magnesium Total Bilirubin AST ALT Alkaline Phosphatase Lactate Dehydrogenase Troponin I High Sens B-Natriuretic Peptide Total Protein Albumin Random Vancomycin DEWAYNE, Polyspecific Positive DEWAYNE Work-up Crossmatch Procedures Date of Service Date of Service: 07/29/22 Progress Note: A&P Assessment and plan (1) Anasarca: Status: Acute (2) Sacral osteomyelitis: Status: Acute (3) Stage IV pressure ulcer of sacral region: Status: Acute Plan Remains critically ill. Veraflo wound vac remains in place to sacral ulcer with good seal. Continue current settings: 20cc normal saline irrigation, 5 minute soak, 2h vac. If has leak, may need to go back to wet to dry dressings at site as it is very difficulty area to obtain seal and skin is weeping in addition. Plan vac sponge change on Monday if remains in place. Time Spent With Patient Time: Total time spent is greater than 50% in coordination of care (as documented) at patient's floor/unit and/or counseling patient: Quality Stroke Does the patient have a stroke diagnosis?: No VTE Prior VTE?: No VTE Risk Level:: Medical - moderate - high VTE Device Contraindication: Treatment Not Indicated VTE Drug Contraindication: Treatment Not Indicated (contraindicated; UGI bleed)
--- NOTE | 2022-07-29 10:12 | MHC.CLN ---
F/U: PT REMAINS INTUBATED REVIEWED LABS; DAILY HD DISCUSSED AT ROUNDS TF IS CURRENTLY ON HOLD FOR ELEVATED GRVs PT'S TF GOAL: NEPRO AT 65ML/HR TO PROVIDE 2808KCALS (30KCALS/KG BASED ON ADMISSION WT), 126G PROTEIN (1.3G/KG FOR WOUND HEALING), 1134ML FREE WATER FROM FORMULA MONITOR TOLERANCE, RESIDUALS AND LYTES
[2022-07-29] MEDS: Midodrine HCl 5 MG TABLET PO (11:58)
--- NOTE | 2022-07-29 13:17 | PC.RT ---
Pt extubated per order and placed on HFNC 35%/40- LPM. ETT cuff leak verified, pt ext able to cough and clear, whisper, and no stridor was noted.Vent on standby at bedside. Pt currently in no distress.
--- NOTE | 2022-07-29 14:00 | P.PNCC_ITS ---
Subjective Subjective Date of Service: 07/29/22 Interval History: Mr. Andujar was transferred to the ICU on 07/24/2022 after PEA arrest on the floor. The patient is a 67-year-old gentleman with underlying diabetes mellitus, CKD and ischemic heart failure, s/p CABG about 10 years ago, followed by ICD placement.? Over last year or so, EF was reportedly about 40%.? 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 But according to his family, the patient was in good and fairly active general health, living on his own, [place] [employer] [place], even playing golf, until March of this year when he developed what sounds like progressive anasarca, with his legs ballooning to the size of logs and he could barely walk.? The diuretics no longer worked. He was admitted to [facility] for edema management in March.? Everything went downhill from there, and he was started on HD.? At some point he developed a decubitus ulcer.? He spent approximately 3 weeks at [facility] and was then transferred to [facility] for rehab.? After 3 weeks at [facility], he was [place] [facility] [place] of sepsis from the Decubitus ulcer.? Then went back to [facility] and since then, been back at [facility] [place] [facility] for further management of sepsis, the decubitus, and renal failure, including two surgeries for the decubitus, including a diverting colostomy done approximately about 8 weeks ago at [facility]. Currently PMHx additionally includes ESRD on hemodialysis, protein calorie malnutrition, coronary artery disease status post CABG, ischemic cardiomyopathy with EF of 40-45%, status post AICD, PAfib, osteomyelitis of stage IV sacral decubitus ulcer, discoid lupus, and diverting colostomy. On 07/11/2022, he was BIBA to [facility] after developing chest pain. There was no evidence of ACS. He was admitted to the medical floor for stage IV decubitus ulcer/osteomyelitis meeting sepsis criteria and ESRD, and given empiric abx.? Hi s hospital course since then had been relatively stable, and his discharge was being planned.? He'd had a chronic leukocytosis over the last few months secondary to the osteomyelitis; his WBC remained elevated despite completing a prior course of IV antibiotics.? Most recently Dr. Stein recommended IV meropenem and PO zyvox for 6 weeks. He'd been followed by surgery s/p debridement; preventative measures in place with frequent turning, and appropriate bed. TPN was initiated to promote wound healing.? He was continued on his T-Th-Mon HD schedule. Due to vomiting, he had an xray that showed dilated stomach but no evidence of bowel obstruction. That clinically seems to have resolved. He had intermittent tachycardia and paroxysmal AFIB controlled with Metoprolol 25mg tid. On Jul 24, the bicarb level on his routine morning labs was low.? A lactate level was checked and came back very high.? While the patient was being evaluated he went into a PEA arrest.? CPR and ACLS administered.? He had ROSC after four rounds of epinephrine.? No shocks were required.? The duration of CPR was approximately 16 minutes.? He was intubated during the CPR and transferred to intensive care unit. He did show signs of awakening after CPR and required sedation.? NGT placement after tx to ICU showed blood.? Hb was 3.5 (c/w 8.1 one week prior).? He was vol resusc with blood and crystalloid.? Thru that nite he required Levophed and a bicarb drip and his lactates remained elevated in the 15 range. The following day (Jul 25), he had a persistent metabolic and lactic acidoses in the 14 range, which began to improve in the evening.? His levophed requirement came down slowly and after propofol was turned off he had consistent eye opening to command.? FiO2 was down to 30%. Since then, his MS and hemodynamics have improved slowly but steadily.? We started him on dobutamine 25ug and his BP went up, Levophed requirement went down.? Dr. Vidales debrided the sacral wound at the bedside.? There was not much to debride, it was mostly bone.? No gross infection, no odor.? We put a Kaofeed tube down and started tube feeds.? We started him on amiodarone for heart rate control of AFib with RVR, and some hours later he converted to sinus tachycardia.? We tried slowing his heart rate with low dose esmolol, but his BP dropped precipitously, so that was abandoned.? Dr. Vidales put the wound VAC in his sacral wound yesterday. The patient continued to lose Hb and Mon, so I dropped a [place] sump yesterday.? There was no blood or coffee grounds in the yellow gastric aspirate.? Sent him to abdominal CT, there was no evidence of intraabdominal hemorrhage.? I asked Dr. Petersen to see him in regards to the ongoing blood loss and his thrombocytopenia.? We?ve sent labs off. He came off Levophed yesterday.? We dropped his dobutamine dose to 2ug overnite, but that had no effect on his HR,? Hemodynamics were steady over last night.? On re-echo today, the LV looks noticeably smaller (qualitatively) and wall motion is slightly but noticeably improved compared to the echo on 07/26.? Septum and apex are still akinetic, but free wall is improved.? Overall EF no better than 20%. ?MV has 1-2+ MR compared to only trace MR initially. ?Still has 4+ TR, but the CWD jet measures only about 2.4 m/sec, compared to 2.7 on the echo done 07/25.? An EKG showed return of R waves in V2 and V3 compared to the EKG on Jul 25.? And at onset of HD, BP has been increasingly less labile. This morning, off propofol since 3am, he was fully awake, expressive, and consistently interactive.? On dobut 2ug, and amiodarone gtt.? HR 117, SR..? BP 110/71.? On PSV 5/+5/21%, RR 12, Vt into 700s, Ve 7.1L, PIP 16cm, ETCO2 29, Sat 96%. ?CVBG this morning 7.41/41/+1. ?Afebrile.? Gives me a thumbs up on command readily.? Light rhonchi, normal exp phase.? Reg rhythm -- sinus with PVCs.? No murmurs or gallops.? The abdomen is nondistended.? The ostomy bag has brown liq uid and solid stool in it.? The prolapsed loop of the colostomy is smaller.? He still has gross anasarca, at least 2-3+. The patient was extubated to HFNC 40L/32%.? Able to say ?e?.? Trachea is clear.? Breathing easy with Sat 96%. ?Has a moderate cough.? Breathing is a bit raspy. LABORATORY DATA:? Below.? Notably, Hgb is 9.8 this morning after 3 units RBCs last three days. ?Plat count is still only 21K after 1 bag of platelets yesterday.? Trop down to 1810 and BNP steady at 4100. ?Alb 3.1 (after albumin infusion). EGD 07/25:? Erosive esophagitis; multiple chronic appearing 4-5 mm ulcers in the duodenal bulb; a 2 cm non-bleeding ulcer with yellow exudate at the base of the duodenal bulb with a visible vessel - one hemoclip was applied.? No blood or active bleeding seen in the UGI tract during EGD and no biopsies were obtained. IMPRESSION: 1. Underlying systolic ischemic CMOP. 2. S/p Cardiac arrest -- PEA arrest, 2? UGI bleed.? Likely never had full cessation of spont circulation, judging by his rapid return of mental status after 16 min of CPR. 3. Acute NSTEMI.? Based on the troponin bump, the EKG changes (loss of precordial R waves), and the marked loss of ventricular function on echo.? Sta rted on Lipitor 80mg.? Tried beta willow but he was too unstable.? No anticoagulation or ASA bec of GI bleed. 4. Cardiogenic shock w shock liver.? Improving, based on all the numbers -- improving BP, Levophed is off, improving ventricular size and fxn on echo, lactate resolved, INR is improving.? Added Isordil. 5. Underlying ESRD on HD with refractory anasarca.? Daily dialysis this week. 6. Acute Respiratory Failure. ?Intubated during the CPR. ?Extubated without difficulty today.? His mechanics are fine.? The only question is whether or not he can keep his airway clear. 7. Chronic large stage 4 sacral decubitus with chronic osteomyelitis, s/p diverting sigmoid loop colostomy. ?Woundvac is on. 8. S/P UGI bleed with hemorrhagic shock.? Continue high dose PPI.? Transfused to Hgb > 9. ?On Procrit. 9. Anoxic encephalopathy.? Almost fully resolved. 10. Coagulopathy.? 2? hepatic failure.? Vit K 50 mg total given.? INR is improving as his liver improves w resolution of cardiogenic shock. 11. AFib w RVR.? Cardioverted w amiodarone.? At the suggestion of Dr. Williamson from the heart failure service, we won?t try to reduce his HR now that he?s in SR.? Needs the HR to compensate for his low CO. Continue amiodarone. 12. ID: Continue meropenam and vanco for osteomyelitis, per ID recs. 13. Diabetes mellitus. SS insulin.? Started him on Lantus, but he had a number of low POCs yesterday, so the Lantus was d/c?d.? Continue just the SS insulin. 14. Anemia with acute Hb loss.? Source is undermined.? W/U (including hemolysis) in progress. 15. Thrombocytopenia.? Seems like consumption.? W/U in progress.? Heparin Ab negative.? No DVT on duplex scan yesterday. 16. Nutrition.? Advancing tube feeds.? On goal rate Nepro.? Ostomy is working great. Spoke again with Dr. Lamont Williamson at the heart failure service.? Reviewed his progress in depth.? They would be willing to take him to their step down unit after extubation. Spoke with family for over an hour today after extubation.? We discussed what the future holds from here, and the possibility/likelihood that he has a very burdensome road from here.? They?ve talked to the patient and he doesn?t want life support again.? Will have DNR/DNI status.? At this time, they would not want any transfer to . Prognosis is very guarded. Critical Care time (including mult visits to bedside, mult family conversations): ?2+ hrs. Critical Care Time (minutes): 120 Physical Exam Vital Signs: Vital Signs: Last Vital Signs Temp 96.4 F L 07/29/22 12:00 Pulse 117 H 07/29/22 13:00 Resp 13 07/29/22 13:13 BP 119/72 07/29/22 13:00 Pulse Ox 99 07/29/22 13:00 O2 Del Method 07/29/22 13:00 O2 Flow Rate 40 07/29/22 13:00 FiO2 35 07/29/22 13:00 BMI result Body Mass Index 28.5 Objective Data Labs CBC & Chem 7: 07/29/22 05:17 07/29/22 05:17 Labs: Laboratory Results - last 24 hr 07/28/22 07/28/22 07/28/22 12:56 15:03 16:20 WBC RBC Hgb Hct MCV MCH MCHC RDW Plt Count MPV Immature Gran % (Auto) Neut % (Auto) Lymph % (Auto) [place] % (Auto) Eos % (Auto) Baso % (Auto) Lymph # (Auto) [place] # (Auto) Eos # (Auto) Baso # (Auto) Abs Immat Gran (auto) Absolute Neuts (auto) Absolute Nucleated RBC Nucleated RBC % (auto) Absolute Retic Percent Retic Immature Retic Fraction Retic Hgb Equivalent PT INR APTT D-Dimer High Sensitivty VBG pH VBG pCO2 VBG pO2 VBG HCO3 VBG O2 Saturation VBG Base Excess Sodium Potassium Chloride Carbon Dioxide Anion Gap BUN Creatinine Estim Creat Clear Calc Estimated GFR POC Glucose 74 74 Random Glucose Calcium Phosphorus Magnesium Total Bilirubin AST ALT Alkaline Phosphatase Lactate Dehydrogenase Troponin I High Sens B-Natriuretic Peptide Total Protein Albumin Random Vancomycin 11.6 L DEWAYNE, Polyspecific Positive DEWAYNE Work-up 07/28/22 07/28/22 07/28/22 16:47 16:47 16:47 WBC RBC Hgb Hct MCV MCH MCHC RDW Plt Count MPV Immature Gran % (Auto) Neut % (Auto) Lymph % (Auto) [place] % (Auto) Eos % (Auto) Baso % (Auto) Lymph # (Auto) [place] # (Auto) Eos # (Auto) Baso # (Auto) Abs Immat Gran (auto) Absolute Neuts (auto) Absolute Nucleated RBC Nucleated RBC % (auto) Absolute Retic 0.023 L Percent Retic 0.7 Immature Retic Fraction 5.5 Retic Hgb Equivalent 36.9 H PT 18.0 H INR 1.5 H APTT 34.2 D-Dimer High Sensitivty 1297 VBG pH VBG pCO2 VBG pO2 VBG HCO3 VBG O2 Saturation VBG Base Excess Sodium Potassium Chloride Carbon Dioxide Anion Gap BUN Creatinine Estim Creat Clear Calc Estimated GFR POC Glucose Random Glucose Calcium Phosphorus Magnesium Total Bilirubin AST ALT Alkaline Phosphatase Lactate Dehydrogenase 305 H Troponin I High Sens B-Natriuretic Peptide Total Protein Albumin Random Vancomycin DEWAYNE, Polyspecific Positive DEWAYNE Work-up 07/28/22 07/28/22 07/28/22 16:47 18:00 18:35 WBC RBC Hgb Hct MCV MCH MCHC RDW Plt Count MPV Immature Gran % (Auto) Neut % (Auto) Lymph % (Auto) [place] % (Auto) Eos % (Auto) Baso % (Auto) Lymph # (Auto) [place] # (Auto) Eos # (Auto) Baso # (Auto) Abs Immat Gran (auto) Absolute Neuts (auto) Absolute Nucleated RBC Nucleated RBC % (auto) Absolute Retic Percent Retic Immature Retic Fraction Retic Hgb Equivalent PT INR APTT D-Dimer High Sensitivty VBG pH VBG pCO2 VBG pO2 VBG HCO3 VBG O2 Saturation VBG Base Excess Sodium Potassium Chloride Carbon Dioxide Anion Gap BUN Creatinine Estim Creat Clear Calc Estimated GFR POC Glucose 65 137 H Random Glucose Calcium Phosphorus Magnesium Total Bilirubin AST ALT Alkaline Phosphatase Lactate Dehydrogenase Troponin I High Sens B-Natriuretic Peptide Total Protein Albumin Random Vancomycin DEWAYNE, Polyspecific NEGATIVE Positive DEWAYNE Work-up TNP 07/28/22 07/28/22 07/28/22 19:09 21:03 22:03 WBC RBC Hgb Hct MCV MCH MCHC RDW Plt Count MPV Immature Gran % (Auto) Neut % (Auto) Lymph % (Auto) [place] % (Auto) Eos % (Auto) Baso % (Auto) Lymph # (Auto) [place] # (Auto) Eos # (Auto) Baso # (Auto) Abs Immat Gran (auto) Absolute Neuts (auto) Absolute Nucleated RBC Nucleated RBC % (auto) Absolute Retic Percent Retic Immature Retic Fraction Retic Hgb Equivalent PT INR APTT D-Dimer High Sensitivty VBG pH VBG pCO2 VBG pO2 VBG HCO3 VBG O2 Saturation VBG Base Excess Sodium Potassium Chloride Carbon Dioxide Anion Gap BUN Creatinine Estim Creat Clear Calc Estimated GFR POC Glucose 100 75 114 Random Glucose Calcium Phosphorus Magnesium Total Bilirubin AST ALT Alkaline Phosphatase Lactate Dehydrogenase Troponin I High Sens B-Natriuretic Peptide Total Protein Albumin Random Vancomycin DEWAYNE, Polyspecific Positive DEWAYNE Work-up 07/28/22 07/29/22 07/29/22 23:37 01:51 02:53 WBC RBC Hgb Hct MCV MCH MCHC RDW Plt Count MPV Immature Gran % (Auto) Neut % (Auto) Lymph % (Auto) [place] % (Auto) Eos % (Auto) Baso % (Auto) Lymph # (Auto) [place] # (Auto) Eos # (Auto) Baso # (Auto) Abs Immat Gran (auto) Absolute Neuts (auto) Absolute Nucleated RBC Nucleated RBC % (auto) Absolute Retic Percent Retic Immature Retic Fraction Retic Hgb Equivalent PT INR APTT D-Dimer High Sensitivty VBG pH VBG pCO2 VBG pO2 VBG HCO3 VBG O2 Saturation VBG Base Excess Sodium Potassium Chloride Carbon Dioxide Anion Gap BUN Creatinine Estim Creat Clear Calc Estimated GFR POC Glucose 97 91 84 Random Glucose Calcium Phosphorus Magnesium Total Bilirubin AST ALT Alkaline Phosphatase Lactate Dehydrogenase Troponin I High Sens B-Natriuretic Peptide Total Protein Albumin Random Vancomycin DEWAYNE, Polyspecific Positive DEWAYNE Work-up 07/29/22 07/29/22 07/29/22 05:17 05:17 05:17 WBC 12.6 H RBC 3.20 L Hgb 9.8 L Hct 28.2 L MCV 88.1 MCH 30.6 MCHC 34.8 RDW 17.4 H Plt Count 21 L MPV 12.5 H Immature Gran % (Auto) 1.0 H Neut % (Auto) 89.8 H Lymph % (Auto) 2.2 L [place] % (Auto) 6.6 Eos % (Auto) 0.1 Baso % (Auto) 0.3 Lymph # (Auto) 0.3 L [place] # (Auto) 0.8 Eos # (Auto) 0.0 Baso # (Auto) 0.0 Abs Immat Gran (auto) 0.12 H Absolute Neuts (auto) 11.3 H Absolute Nucleated RBC 0.000 Nucleated RBC % (auto) 0.0 Absolute Retic Percent Retic Immature Retic Fraction Retic Hgb Equivalent PT INR APTT D-Dimer High Sensitivty VBG pH VBG pCO2 VBG pO2 VBG HCO3 VBG O2 Saturation VBG Base Excess Sodium 133 L Potassium 3.5 Chloride 99 Carbon Dioxide 24 Anion Gap 14 BUN 40 H Creatinine 1.81 H Estim Creat Clear Calc 53.6 Estimated GFR 37 POC Glucose Random Glucose 95 Calcium 8.1 L D Phosphorus 2.7 Magnesium 1.9 Total Bilirubin 2.2 H AST 92 H ALT 203 H Alkaline Phosphatase 126 H Lactate Dehydrogenase Troponin I High Sens 1810.4 H* D B-Natriuretic Peptide Total Protein 4.9 L Albumin 3.1 L Random Vancomycin DEWAYNE, Polyspecific Positive DEWAYNE Work-up 07/29/22 07/29/22 07/29/22 05:17 05:22 05:36 WBC RBC Hgb Hct MCV MCH MCHC RDW Plt Count MPV Immature Gran % (Auto) Neut % (Auto) Lymph % (Auto) [place] % (Auto) Eos % (Auto) Baso % (Auto) Lymph # (Auto) [place] # (Auto) Eos # (Auto) Baso # (Auto) Abs Immat Gran (auto) Absolute Neuts (auto) Absolute Nucleated RBC Nucleated RBC % (auto) Absolute Retic Percent Retic Immature Retic Fraction Retic Hgb Equivalent PT INR APTT D-Dimer High Sensitivty VBG pH 7.41 VBG pCO2 41 VBG pO2 44 VBG HCO3 26 VBG O2 Saturation 73.0 VBG Base Excess 1.9 Sodium Potassium Chloride Carbon Dioxide Anion Gap BUN Creatinine Estim Creat Clear Calc Estimated GFR POC Glucose 94 Random Glucose Calcium Phosphorus Magnesium Total Bilirubin AST ALT Alkaline Phosphatase Lactate Dehydrogenase Troponin I High Sens B-Natriuretic Peptide 4134 H Total Protein Albumin Random Vancomycin DEWAYNE, Polyspecific Positive DEWAYNE Work-up Microbiology Microbiology Results: Microbiology 07/11/22 06:35 Blood - Arterial Line Blood Culture - Final No growth after 5 days. 07/11/22 06:35 Blood - Arterial Line Blood Culture - Final No growth after 5 days. Quality Stroke Does the patient have a stroke diagnosis?: No VTE Prior VTE?: No VTE Risk Level:: Medical - moderate - high VTE Device Contraindication: Treatment Not Indicated VTE Drug Contraindication: Treatment Not Indicated (contraindicated; UGI bleed) Critical Care Time Critical Care Time (minutes): 120
--- NOTE | 2022-07-29 14:25 | MHC.CM.PN ---
Patient continues in ICU. CM will follow for d/c planning needs as appropriate.
[2022-07-29 14:35] LABS: Glucose, Whole Blood 109 mg/dL (60-115)
[2022-07-29] MEDS: Amiodarone HCL 900 MG in 0.9 % Sodium Chloride 500 ML 17.27 MG IVCONT (14:53)
[2022-07-29 15:09] LABS: HIT-Patient Optical Density 0.176 OD UNITS; Heparin Induced Plt Ab Negative (Negative)
--- NOTE | 2022-07-29 17:04 | PM.PNNEP ---
Subjective Subjective Date of Service: 07/29/22 Interval history: Pt seen on dialysis today; successfully removing vol without significant hypotension. Has permcath access. Extubated and on high flow nasal cannula.? I Physical Exam Vital Signs: Vital Signs: Last Vital Signs Temp 96.4 F L 07/29/22 12:00 Pulse 117 H 07/29/22 16:00 Resp 21 H 07/29/22 16:00 BP 129/77 07/29/22 16:00 Pulse Ox 97 07/29/22 16:00 O2 Del Method 07/29/22 16:00 O2 Flow Rate 40 07/29/22 16:00 FiO2 35 07/29/22 16:00 BMI result Body Mass Index 28.5 Const: General: cooperative, comfortable, no acute distress, ill appearing and other (ET tube in place) Nutritional Appearance: overweight and thin Orientation/consciousness: patient oriented x3 Limitations: other limitations (intubated and sedated) HEENT: Head: Yes normal to inspection Face and sinus: Yes normal facial exam Mouth: Normal oral and palatal mucosa present Teeth and gingiva: dentition normal Eyes: General: appearance normal, both eyes and all related structures Sclerae: sclerae normal Pupils: Equal, round and reactive pupils present Neck: Neck: Yes normal visual inspection, Yes full ROM, Yes no lymphadenopathy, Yes trachea midline and Yes supple Chest: Chest palpation & inspection: normal inspection of the chest Resp: Other: intubated, on vent Effort & Inspection: normal respiratory effort Auscultation: clear to auscultation bilaterally and crackles ( diffuse bilateral) Cardio: Jugular venous distension: no JVD Palpation: normal PMI Rate: regular rate and tachycardic Rhythm: regular rhythm Heart sounds: S1 normal heart sound present, S2 normal heart sound present, no click, no gallops, no murmurs and no rubs GI: Inspection: Yes distended and Yes other (Ostomy bag is present) Palpation (GI): Soft to palpation, not firm, nontender, no guarding and No hepatosplenomegaly present Auscultation: normal bowel sounds and Hypoactive bowel sounds present Rectal Exam - Male: Yes deferred : General: Yes no CVA tenderness Back/Spine/Pelvis: Other: wound vac remains in place to sacral decubitus with good seal Back: no CVA tenderness Skin: Other: diffusely weeping General skin exam: no rashes or lesions noted Neuro: General: patient oriented x3 and moves all extremities Cranial nerves: Yes Equal, round and reactive pupils present Motor exam (neuro): no asterixis Extrem: Other: anasarca General: Yes normal to inspection, Yes no pedal edema, No clubbing, Yes cyanosis (acral) and Yes edema Psych: Appearance: grossly normal Objective Data Labs CBC & Chem 7: 07/29/22 05:17 07/29/22 05:17 Labs: Laboratory Results - last 24 hr 07/26/22 07/28/22 07/28/22 09:03 16:47 16:47 WBC RBC Hgb Hct MCV MCH MCHC RDW Plt Count MPV Immature Gran % (Auto) Neut % (Auto) Lymph % (Auto) [place] % (Auto) Eos % (Auto) Baso % (Auto) Lymph # (Auto) [place] # (Auto) Eos # (Auto) Baso # (Auto) Abs Immat Gran (auto) Absolute Neuts (auto) Absolute Nucleated RBC Nucleated RBC % (auto) Absolute Retic 0.023 L Percent Retic 0.7 Immature Retic Fraction 5.5 Retic Hgb Equivalent 36.9 H PT 18.0 H INR 1.5 H APTT 34.2 D-Dimer High Sensitivty 1297 VBG pH VBG pCO2 VBG pO2 VBG HCO3 VBG O2 Saturation VBG Base Excess Sodium Potassium Chloride Carbon Dioxide Anion Gap BUN Creatinine Estim Creat Clear Calc Estimated GFR POC Glucose Random Glucose Calcium Phosphorus Magnesium Total Bilirubin AST ALT Alkaline Phosphatase Lactate Dehydrogenase Troponin I High Sens B-Natriuretic Peptide Total Protein Albumin Heparin Dep Plt Ab OD 0.176 Hep-Induced Plt Ab Carolyn Negative DEWAYNE, Polyspecific Positive DEWAYNE Work-up 07/28/22 07/28/22 07/28/22 16:47 16:47 18:00 WBC RBC Hgb Hct MCV MCH MCHC RDW Plt Count MPV Immature Gran % (Auto) Neut % (Auto) Lymph % (Auto) [place] % (Auto) Eos % (Auto) Baso % (Auto) Lymph # (Auto) [place] # (Auto) Eos # (Auto) Baso # (Auto) Abs Immat Gran (auto) Absolute Neuts (auto) Absolute Nucleated RBC Nucleated RBC % (auto) Absolute Retic Percent Retic Immature Retic Fraction Retic Hgb Equivalent PT INR APTT D-Dimer High Sensitivty VBG pH VBG pCO2 VBG pO2 VBG HCO3 VBG O2 Saturation VBG Base Excess Sodium Potassium Chloride Carbon Dioxide Anion Gap BUN Creatinine Estim Creat Clear Calc Estimated GFR POC Glucose 65 Random Glucose Calcium Phosphorus Magnesium Total Bilirubin AST ALT Alkaline Phosphatase Lactate Dehydrogenase 305 H Troponin I High Sens B-Natriuretic Peptide Total Protein Albumin Heparin Dep Plt Ab OD Hep-Induced Plt Ab Carolyn DEWAYNE, Polyspecific NEGATIVE Positive DEWAYNE Work-up TNP 07/28/22 07/28/22 07/28/22 18:35 19:09 21:03 WBC RBC Hgb Hct MCV MCH MCHC RDW Plt Count MPV Immature Gran % (Auto) Neut % (Auto) Lymph % (Auto) [place] % (Auto) Eos % (Auto) Baso % (Auto) Lymph # (Auto) [place] # (Auto) Eos # (Auto) Baso # (Auto) Abs Immat Gran (auto) Absolute Neuts (auto) Absolute Nucleated RBC Nucleated RBC % (auto) Absolute Retic Percent Retic Immature Retic Fraction Retic Hgb Equivalent PT INR APTT D-Dimer High Sensitivty VBG pH VBG pCO2 VBG pO2 VBG HCO3 VBG O2 Saturation VBG Base Excess Sodium Potassium Chloride Carbon Dioxide Anion Gap BUN Creatinine Estim Creat Clear Calc Estimated GFR POC Glucose 137 H 100 75 Random Glucose Calcium Phosphorus Magnesium Total Bilirubin AST ALT Alkaline Phosphatase Lactate Dehydrogenase Troponin I High Sens B-Natriuretic Peptide Total Protein Albumin Heparin Dep Plt Ab OD Hep-Induced Plt Ab Carolyn DEWAYNE, Polyspecific Positive DEWAYNE Work-up 07/28/22 07/28/22 07/29/22 22:03 23:37 01:51 WBC RBC Hgb Hct MCV MCH MCHC RDW Plt Count MPV Immature Gran % (Auto) Neut % (Auto) Lymph % (Auto) [place] % (Auto) Eos % (Auto) Baso % (Auto) Lymph # (Auto) [place] # (Auto) Eos # (Auto) Baso # (Auto) Abs Immat Gran (auto) Absolute Neuts (auto) Absolute Nucleated RBC Nucleated RBC % (auto) Absolute Retic Percent Retic Immature Retic Fraction Retic Hgb Equivalent PT INR APTT D-Dimer High Sensitivty VBG pH VBG pCO2 VBG pO2 VBG HCO3 VBG O2 Saturation VBG Base Excess Sodium Potassium Chloride Carbon Dioxide Anion Gap BUN Creatinine Estim Creat Clear Calc Estimated GFR POC Glucose 114 97 91 Random Glucose Calcium Phosphorus Magnesium Total Bilirubin AST ALT Alkaline Phosphatase Lactate Dehydrogenase Troponin I High Sens B-Natriuretic Peptide Total Protein Albumin Heparin Dep Plt Ab OD Hep-Induced Plt Ab Carolyn DEWAYNE, Polyspecific Positive DEWAYNE Work-up 07/29/22 07/29/22 07/29/22 02:53 05:17 05:17 WBC 12.6 H RBC 3.20 L Hgb 9.8 L Hct 28.2 L MCV 88.1 MCH 30.6 MCHC 34.8 RDW 17.4 H Plt Count 21 L MPV 12.5 H Immature Gran % (Auto) 1.0 H Neut % (Auto) 89.8 H Lymph % (Auto) 2.2 L [place] % (Auto) 6.6 Eos % (Auto) 0.1 Baso % (Auto) 0.3 Lymph # (Auto) 0.3 L [place] # (Auto) 0.8 Eos # (Auto) 0.0 Baso # (Auto) 0.0 Abs Immat Gran (auto) 0.12 H Absolute Neuts (auto) 11.3 H Absolute Nucleated RBC 0.000 Nucleated RBC % (auto) 0.0 Absolute Retic Percent Retic Immature Retic Fraction Retic Hgb Equivalent PT INR APTT D-Dimer High Sensitivty VBG pH VBG pCO2 VBG pO2 VBG HCO3 VBG O2 Saturation VBG Base Excess Sodium 133 L Potassium 3.5 Chloride 99 Carbon Dioxide 24 Anion Gap 14 BUN 40 H Creatinine 1.81 H Estim Creat Clear Calc 53.6 Estimated GFR 37 POC Glucose 84 Random Glucose 95 Calcium 8.1 L D Phosphorus 2.7 Magnesium 1.9 Total Bilirubin 2.2 H AST 92 H ALT 203 H Alkaline Phosphatase 126 H Lactate Dehydrogenase Troponin I High Sens B-Natriuretic Peptide Total Protein 4.9 L Albumin 3.1 L Heparin Dep Plt Ab OD Hep-Induced Plt Ab Carolyn DEWAYNE, Polyspecific Positive DEWAYNE Work-up 07/29/22 07/29/22 07/29/22 05:17 05:17 05:22 WBC RBC Hgb Hct MCV MCH MCHC RDW Plt Count MPV Immature Gran % (Auto) Neut % (Auto) Lymph % (Auto) [place] % (Auto) Eos % (Auto) Baso % (Auto) Lymph # (Auto) [place] # (Auto) Eos # (Auto) Baso # (Auto) Abs Immat Gran (auto) Absolute Neuts (auto) Absolute Nucleated RBC Nucleated RBC % (auto) Absolute Retic Percent Retic Immature Retic Fraction Retic Hgb Equivalent PT INR APTT D-Dimer High Sensitivty VBG pH 7.41 VBG pCO2 41 VBG pO2 44 VBG HCO3 26 VBG O2 Saturation 73.0 VBG Base Excess 1.9 Sodium Potassium Chloride Carbon Dioxide Anion Gap BUN Creatinine Estim Creat Clear Calc Estimated GFR POC Glucose Random Glucose Calcium Phosphorus Magnesium Total Bilirubin AST ALT Alkaline Phosphatase Lactate Dehydrogenase Troponin I High Sens 1810.4 H* D B-Natriuretic Peptide 4134 H Total Protein Albumin Heparin Dep Plt Ab OD Hep-Induced Plt Ab Carolyn DEWAYNE, Polyspecific Positive DEWAYNE Work-up 07/29/22 07/29/22 05:36 11:52 WBC RBC Hgb Hct MCV MCH MCHC RDW Plt Count MPV Immature Gran % (Auto) Neut % (Auto) Lymph % (Auto) [place] % (Auto) Eos % (Auto) Baso % (Auto) Lymph # (Auto) [place] # (Auto) Eos # (Auto) Baso # (Auto) Abs Immat Gran (auto) Absolute Neuts (auto) Absolute Nucleated RBC Nucleated RBC % (auto) Absolute Retic Percent Retic Immature Retic Fraction Retic Hgb Equivalent PT INR APTT D-Dimer High Sensitivty VBG pH VBG pCO2 VBG pO2 VBG HCO3 VBG O2 Saturation VBG Base Excess Sodium Potassium Chloride Carbon Dioxide Anion Gap BUN Creatinine Estim Creat Clear Calc Estimated GFR POC Glucose 94 109 Random Glucose Calcium Phosphorus Magnesium Total Bilirubin AST ALT Alkaline Phosphatase Lactate Dehydrogenase Troponin I High Sens B-Natriuretic Peptide Total Protein Albumin Heparin Dep Plt Ab OD Hep-Induced Plt Ab Carolyn DEWAYNE, Polyspecific Positive DEWAYNE Work-up Microbiology Microbiology Results: Microbiology 07/11/22 06:35 Blood - Arterial Line Blood Culture - Final No growth after 5 days. 07/11/22 06:35 Blood - Arterial Line Blood Culture - Final No growth after 5 days. Procedures Date of Service Date of Service: 07/29/22 Assessment & Plan Assessment and plan (1) Sacral decubitus ulcer: Status: Acute (2) ESRD (end stage renal disease): Status: Acute (3) Acute respiratory failure: Status: Acute (4) Chronic systolic heart failure: Status: Acute (5) Type 2 diabetes mellitus with hyperglycemia: Status: Acute (6) Stage IV pressure ulcer of sacral region: Status: Acute Plan ESRD with pulm decompensation due to heart failure, arrhythmia with underlying ischemic load planner. Hypervolemic Plan is dialysis daily for next few days to optimize vol status and prevent resp decompensation Keep K and Mg normal range Keep calcium normal range Time Spent With Patient Time: Total time managing care of this patient today ____ minutes. Progress Note: Quality Stroke Does the patient have a stroke diagnosis?: No
--- NOTE | 2022-07-29 17:37 | PM.HEMONCPN ---
Medical Summary - Medical Summary Date of Service: 07/29/22 Chief complaint: Follow-up for: 1. Anemia. Number thrombocytopenia. Medical Summary: DIAGNOSIS: 1. ANEMIA. 2. THROMBOCYTOPENIA. Interval History Interval history: 67-year-old gentleman, in ICU status post PEA arrest. He is about the same. Intubated, Maintained on pressors. Afebrile. Review of Systems - Constitutional Reports system reviewed and no additional complaints, except as documented, Reports fatigue, Reports weakness, Reports weight loss - Eyes Reports system reviewed and no additional complaints, except as documented - ENT Reports system reviewed and no additional complaints, except as documented - Cardiovascular Reports system reviewed and no additional complaints, except as documented - Respiratory Reports no additional respiratory complaints - Gastrointestinal Reports system reviewed and no additional complaints, except as documented - Genitourinary Genitourinary: Reports no additional male genitourinary complaints - Musculoskeletal Reports system reviewed and no additional complaints, except as documented - Integumentary/Breasts Skin/Breast: Reports no additional skin complaints - Neurologic Denies focal weakness, Denies convulsions - Psychiatric Reports system reviewed and no additional complaints, except as documented - Endocrine Reports no additional endocrine complaints - Hematologic/Lymphatic Reports system reviewed and no additional complaints, except as documented - Allergic/Immunologic Reports system reviewed and no additional complaints, except as documented PMFSH Medical History: Medical History (Last Updated 07/26/22 @ 15:09 by Saud Vidales MD) Anasarca CAD (coronary artery disease) Chronic systolic heart failure Diabetic nephropathy Discoid lupus erythematosus Emesis End stage renal disease ESRD (end stage renal disease) Essential tremor HLD (hyperlipidemia) Osteomyelitis of sacrum Protein deficiency Stage IV pressure ulcer of sacral region Type 2 diabetes mellitus with hyperglycemia Functional capacity: bed bound Patient : No Family History: Family History (Last Reviewed 07/11/22 @ 23:22 by Trupti Stein MD) Sister Type 1 diabetes Father Type 1 diabetes Father CAD (coronary artery disease) Mother Stroke Ovarian cancer Family history: reviewed and not pertinent Surgical History: Surgical History (Last Reviewed 07/12/22 @ 04:02 by Delmar Jj RN) S/P CABG (coronary artery bypass graft) Social History: Social History (Last Reviewed 07/11/22 @ 23:22 by Trupti Stein MD) Living Situation History: Housing: Other Housing Other:: Short term rehab Tobacco History: Patient Tobacco Use Status: Former Tobacco user Advance Directives: Advance Directives Date on File: 07/25/22 Nutrition Assessment: Patient : No Occupation Assessmet: service: No Current occupational status: retired Oncology Screenings - ECOG Performance Status ECOG Performance Status: 2 Home Medications and Allergies Current Medications: Current Medications Atorvastatin Calcium (Atorvastatin Calcium 80 Mg Tablet) 80 mg G-TUBE DAILY [facility] Last Admin: 07/29/22 08:17 Dose: 80 mg Chlorhexidine Gluconate (Chlorhexidine Gluc Oral Rinse 15 Ml Mouthwash) 15 ml BUCCAL TID YU Last Admin: 07/29/22 14:24 Dose: 15 ml Dextrose (Dextrose 50 % 25 Gm/50 Ml Syringe) 25 gm IVPUSH Q15M PRN; Protocol PRN Reason: per Hypoglycemia Standing Ord. Last Admin: 07/28/22 21:08 Dose: 25 gm Meropenem 500 mg/ Sodium (Chloride) 50 mls @ 100 mls/hr IV Q24H YU Stop: 08/23/22 23:29 Last Infusion: 07/29/22 01:18 Dose: Infused Propofol (Diprivan) 1,000 mg in 100 mls @ 0 mls/hr IVCONT .Q0M YU; Protocol Last Titration: 07/29/22 03:16 Dose: 0 mcg/kg/min, 0 mls/hr Norepinephrine Bitartrate (Levophed) 8 mg in 250 mls @ 0 mls/hr IVCONT .Q0M YU; Protocol Last Titration: 07/29/22 15:42 Dose: 0.05 mcg/kg/min, 9 mls/hr Amiodarone HCl 900 mg/ Sodium (Chloride) 518 mls @ 34.533 mls/hr IVCONT .Q15H1M YU; Protocol Last Admin: 07/29/22 14:53 Dose: 0.5 mg/min, 17.27 mls/hr Dobutamine HCl/Dextrose (Dobutrex) 500 mg in 250 mls @ 8.865 mls/hr IVCONT .Q24H YU Last Infusion: 07/28/22 21:42 Dose: 2 mcg/kg/min, 7.09 mls/hr Vancomycin HCl 500 mg/ Sodium (Chloride) 110 mls @ 110 mls/hr IV ONCE ONE Stop: 07/28/22 17:08 Insulin Human Lispro (Insulin Lispro 100 Unit/Ml 3 Ml Vial) 0 unit SUBCUT Q6H [facility]; Protocol Last Admin: 07/29/22 11:59 Dose: Not Given Isosorbide Dinitrate (Isosorbide Dinitrate 10 Mg Tablet) 10 mg PO Q8H [facility]; Protocol Last Admin: 07/29/22 16:16 Dose: Not Given Linezolid (Linezolid 600 Mg Tablet) 600 mg PO Q12H [facility] Last Admin: 07/24/22 14:13 Dose: Not Given Midodrine (Midodrine Hcl 5 Mg Tablet) 5 mg PO Q8H [facility] Last Admin: 07/29/22 11:58 Dose: 5 mg Pantoprazole Sodium (Pantoprazole Sodium 40 Mg/10 Ml Vial) 40 mg IVPUSH BID@0630,1630 [facility] Last Admin: 07/29/22 05:39 Dose: 40 mg Pharmacy Consult (Consult Rx Perform Med Rec) 1 each MISCELLANE ONCE PRN PRN Reason: Consult order Sodium Chloride (0.9 % Sodium Chloride Flush 3 Ml Syringe) 3 ml IVFLUSH QSHIFT [facility] Last Admin: 07/29/22 08:17 Dose: 3 ml Home Medications Medication Instructions Recorded Confirmed Type Lactobacillus acidophilus 1 cap PO DAILY 07/11/22 07/11/22 History (Acidophilus capsule) apixaban 5 mg tablet (Eliquis) 1 tab PO BID 07/11/22 07/11/22 History ascorbic acid (vitamin C) 500 mg 500 mg PO BID 07/11/22 07/11/22 History tablet aspirin 81 mg tablet,delayed 81 mg PO DAILY 07/11/22 07/11/22 History release atorvastatin 80 mg tablet 80 mg PO BEDTIME 07/11/22 07/11/22 History calcium carbonate-vitamin D3 600 1 tab PO DAILY 07/11/22 07/11/22 History mg-125 unit tablet cholestyramine (with sugar) 4 gram 4 g PO BIDWM 07/11/22 07/11/22 History oral powder collagenase clostridium histo. 250 1 appl topical BID 07/11/22 07/11/22 History unit/gram topical ointment (Santyl) diphenhydramine HCl 25 mg capsule 25 mg PO TID PRN Itching 07/11/22 07/11/22 History (Benadryl) docusate sodium 100 mg capsule 100 mg PO DAILY 07/11/22 07/11/22 History epoetin ciara 10,000 unit/mL 10,000 unit IV TUTHSA 07/11/22 07/11/22 History injection solution ezetimibe 10 mg tablet 10 mg PO DAILY 07/11/22 07/11/22 History fentanyl 12 mcg/hr transdermal 1 patch transdermal Q72H 07/11/22 07/11/22 History patch fluticasone propionate 50 1 spray intranasal DAILY 07/11/22 07/11/22 History mcg/actuation nasal spray,suspension hydromorphone 2 mg tablet 2 mg PO Q12H PRN Pain 07/11/22 07/11/22 History insulin glargine 100 unit/mL 25 unit subcut DAILY 07/11/22 07/11/22 History subcutaneous solution insulin lispro 100 unit/mL 1 sliding scale dose subcut QIDACHS 07/11/22 07/11/22 History subcutaneous pen melatonin 3 mg tablet 3 mg PO BEDTIME 07/11/22 07/11/22 History metoprolol succinate 25 mg 25 mg PO DAILY 07/11/22 07/11/22 History tablet,extended release 24 hr midodrine 10 mg tablet 10 mg PO TUTHSA PRN LOW BLOOD 07/11/22 07/11/22 History PRESSURE midodrine 5 mg tablet 5 mg PO TID@0900,1200,1800 07/11/22 07/11/22 History midodrine 5 mg tablet 5 mg PO TUTHSA@0900 07/11/22 07/11/22 History nitroglycerin 0.4 mg sublingual 0.4 mg sublingual Q5M PRN Chest 07/11/22 07/11/22 History tablet (Nitrostat) Pain oxycodone 5 mg tablet 5 mg PO Q6H PRN Pain 07/11/22 07/11/22 History primidone 50 mg tablet 50 mg PO BEDTIME 07/11/22 07/11/22 History sennosides 8.6 mg tablet 17.2 mg PO DAILY 07/11/22 07/11/22 History vitamin B complex and vitamin C 1 cap PO DAILY 07/11/22 07/11/22 History no.20-folic acid 1 mg capsule Allergies Allergy/AdvReac Type Severity Reaction Status Date / Time sulfamethoxazole Allergy Hives Verified 07/11/22 05:49 [From Bactrim] trimethoprim [From Bactrim] Allergy Hives Verified 07/11/22 05:49 Exam Vital signs: Vital Signs Temp 96.4 F L 07/29/22 12:00 Pulse 119 H 07/29/22 16:59 Resp 18 07/29/22 16:59 BP 128/71 07/29/22 16:59 Pulse Ox 97 07/29/22 16:59 O2 Del Method 07/29/22 16:59 O2 Flow Rate 40 07/29/22 16:59 FiO2 35 07/29/22 16:59 Intake & Output 07/28/22 07/29/22 07/29/22 18:59 06:59 18:59 Intake Total 2366.440 / 2973.577 607.137 / 2973.577 518 / 518 Output Total 200 / 362 162 / 362 Balance 2166.440 / 2611.577 445.137 / 2611.577 518 / 518 Urine Output (Average ml/kg/hr) 0.01 0.01 Intake: Intake, Oral Amount 0 / 0 Intake, Oral Supplement Amount 40 / 140 100 / 140 Intake, Tube Feeding Amount 400 / 690 290 / 690 Intake, Tube Irrigant Amount 100 / 150 50 / 150 Intake (Blood Product) Amount 608 / 608 Plt Aph Pas Pathreduced(E8343) 258 / 258 Unit [id number] Red Blood Cells (E0382) Unit 350 / 350 [id number] Intake, IV Amount 1218.440 / 1385.577 167.137 / 1385.577 518 / 518 Albumin Human 25 % 100 ml @ 100 100 / 100 mls/hr IV Q1H [facility] Rx#: [id number] Albumin Human 25 % 100 ml @ 100 100 / 100 mls/hr IV Q1H YU Rx#: [id number] Magnesium Sulfate/D5W 1 gm In 100 / 100 100 ml @ 100 mls/hr IV ONCE ONE Rx#:[id number] Meropenem 500 mg In 0.9 % 50 / 50 Sodium Chloride 50 ml @ 100 mls /hr IV Q24H YU Rx#:[id number] vancomycin HCL 500 mg In 0.9 % 110 / 110 Sodium Chloride 100 ml @ 110 mls/hr IV ONCE@1800 [facility] Rx#: [id number] Amiodarone HCL 900 mg In 0.9 % 427.72 / 427.72 518 / 518 Sodium Chloride 500 ml @ 1 MG/ MIN 34.533 mls/hr IVCONT . Q15H1M YU Rx#:[id number] DOBUTamine HCL/D5W 500 mg In 223.672 / 264.770 41.098 / 264.770 250 ml @ 2.5 MCG/KG/MIN 8.865 mls/hr IVCONT .Q24H YU Rx#: [id number] Norepinephrine Bitartrate/NS 8 17.64 / 17.64 0 / 0 mg In 250 ml @ Per Protocol IVCONT .Q0M YU Rx#:[id number] fentaNYL citrate/NS 1,000 mcg 100 / 136.583 36.583 / 136.583 In 100 ml @ Per Protocol IVCONT .Q0M YU Rx#:[id number] propofoL 1,000 mg In 100 ml @ 39.408 / 78.864 39.456 / 78.864 Per Protocol IVCONT .Q0M [facility] Rx #:[id number] Output: Output, Stool Amount 200 / 350 150 / 350 Output, Urine Amount (Catheter) Urethral Other: NPO Yes Yes Number of Bowel Movements 1 Output,Dialysis Amount 4,600 Urine Color Annabelle Last Bowel Movement 07/28/22 Stool Ostomy Weight 109.1 kg Weight in Grams [id number] Weight 109.1 kg BMI result Body Mass Index 28.5 - Constitutional Present: no acute distress, moderate distress, diaphoretic - Routine HEENT Exam Head: Present: normal inspection Eye: Present: normal appearance ENT: Present: mucous membranes moist - Routine Neck Exam Present: full ROM - Routine Respiratory Exam Present: CTAB - Routine Cardiovascular Exam Cardiovascular: Present: RRR, S1, S2 - Routine Abdominal Exam Present: soft, nontender - Routine Extremities Exam Present: nontender - Routine Back/Spine/Pelvis Exam Back/Spine: Present: full ROM - Routine Skin Exam Present: intact - Routine Neurological Exam Present: alert, oriented X3 - Routine Psychiatric Exam Present: normal affect Data - Labs CBC & Chem 7: 07/31/22 05:15 07/31/22 05:15 Labs: 07/11/22 ECG 12 lead EKG Stat XR chest 1V Stat 07/11/22 05:26 EKG Documentation DIRECTED 07/11/22 05:40 Acetone, serum QL Stat Basic Metabolic Panel Stat C Reactive Protein Stat Complete Blood Count Auto Diff Stat Hemoglobin A1c Stat Liver Panel Stat Troponin-I High Sensitivity Stat 07/11/22 05:45 0.9 % Sodium Chloride [Ns] 500 ml IV 500 mls/hr 07/11/22 06:28 Add Laboratory Test Stat 07/11/22 06:35 Lactic Acid Stat Blood Culture X2 [BC] Stat 07/11/22 06:37 Add Laboratory Test Stat 07/11/22 06:56 cefTRIAXone sodium [Rocephin] 1 gm 0.9 % Sodium Chloride [Ns] 50 ml IV ONCE 07/11/22 07:38 cefTRIAXone sodium [Rocephin] 1 gm .ROUTE .STK-MED ONE 07/11/22 07:39 Insulin Lispro [Humalog] 5 unit SUBCUT ONCE ONE 07/11/22 07:57 Add Laboratory Test Stat 07/11/22 07:58 Troponin-I High Sensitivity Stat 07/11/22 08:17 COVID-19 ID NOW (Alfredo) Stat 07/11/22 08:57 Vancomycin Consult Rx Dosing [Consult Rx Vancomycin Dosing] 1 each MISCELLANE DAILY PRN vancomycin HCL 1,000 mg 0.9 % Sodium Chloride [Ns] 250 ml IV ONCE 07/11/22 09:00 Calcium Chloride 1 gm .ROUTE .STK-MED ONE EPINEPHrine [Adrenalin] 7 mg IVPUSH .STK-MED ONE Sodium Bicarbonate 8.4% 200 meq .ROUTE .STK-MED ONE 07/11/22 09:01 Metoprolol Tartrate [Lopressor] 2.5 mg IVPUSH ONCE ONE 07/11/22 09:08 vancomycin HCL 1,000 mg .ROUTE .STK-MED ONE 07/11/22 09:35 Add Laboratory Test Stat 07/11/22 12:17 Ambulate QSHIFT WHILE AWAKE Cont. Telemetry w/Vital Sign limit Q4HR Pulse Oximetry Q4HR Vital Signs Q4HR Code Status Routine Acetaminophen [Tylenol] 650 mg PO Q6H PRN Gabapentin [Neurontin] 300 mg PO ONCE ONE ondansetron HCL [Zofran] 4 mg IVPUSH Q8H PRN 07/11/22 12:19 Low Sodium Diet 07/11/22 12:28 oxyCODONE HCl Immed Release [Roxicodone] 5 mg PO Q6H PRN 07/11/22 12:45 Apixaban [Eliquis] 5 mg PO BID 07/11/22 13:00 Insulin Glargine,Hum.rec.anlog [Lantus] 19 unit SUBCUT DAILY cefEPime HCl [Maxipime] 2 gm 0.9 % Sodium Chloride [Ns] 50 ml IV Q8H 07/11/22 13:05 Dietitian / Nutrition Consult .Routine Diabetic Diet 07/11/22 13:29 HYDROmorphone HCl [Dilaudid] 2 mg PO Q12H PRN 07/11/22 13:45 Midodrine HCl [ProAmatine] 5 mg PO MoWe@0900 07/11/22 14:12 cefEPime HCl [Maxipime] 2 gm IV .STK-MED ONE 07/11/22 14:45 0.9 % Sodium Chloride [Ns] 500 ml IV 500 mls/hr Albumin Human 25 % [Kedbumin 25 %] 100 ml IV Q1H 07/11/22 15:00 Epoetin Ciara [Procrit] 10,000 unit SUBCUT MoWe 07/11/22 15:15 Albumin Human 25 % [Kedbumin 25 %] 100 ml IV Q1H 07/11/22 17:00 Cholestyramine (With Sugar) [Questran] 4 gm PO BIDWM 07/11/22 17:56 Glucose, Whole Blood Routine 07/11/22 18:00 Furosemide [Lasix] 20 mg IVPUSH BID@0900,1800 Midodrine HCl [ProAmatine] 5 mg PO TID@0900,1200,1800 07/11/22 20:10 Lactic Acid Stat 07/11/22 20:11 Vancomycin Random Stat 07/11/22 20:58 cefEPime HCl [Maxipime] 2 gm IV .STK-MED ONE 07/11/22 21:00 Ascorbic Acid [Vitamin C] 500 mg PO BID Atorvastatin Calcium [Lipitor] 80 mg PO BEDTIME Melatonin 3 mg PO BEDTIME Primidone [Mysoline] 50 mg PO BEDTIME 07/11/22 22:00 vancomycin HCL 1,000 mg 0.9 % Sodium Chloride [Ns] 250 ml IV ONCE 07/11/22 22:45 vancomycin HCL 1,000 mg .ROUTE .[facility]-MED ONE 07/12/22 05:36 cefEPime HCl [Maxipime] 2 gm IV .[facility] ONE 07/12/22 06:16 Basic Metabolic Panel DAILY@0600 Complete Blood Count Auto Diff DAILY@0600 07/12/22 08:22 Glucose, Whole Blood Routine 07/12/22 09:00 Aspirin Enteric Coated [Ecotrin] 81 mg PO DAILY Calcium + Vitamin D [Oyster Shell Ca 250 mg-Vit D 125] 500 mg PO DAILY Docusate Sodium [Colace] 100 mg PO DAILY Ezetimibe [Zetia] 10 mg PO DAILY Fluticasone Propionate Nasal [Flonase Nasal] 1 spray NOSTRIL-B DAILY Multivitamin 1 tab PO DAILY Sennosides [Senokot] 17.2 mg PO DAILY 07/12/22 11:10 Glucose, Whole Blood Routine 07/12/22 13:00 dilTIAZem HCL [Cardizem] 10 mg IVPUSH STAT STA 07/12/22 13:11 cefEPime HCl [Maxipime] 2 gm IV .[facility] ONE 07/12/22 13:22 Midodrine HCl [ProAmatine] 10 mg PO TuThSa PRN 07/12/22 16:00 Linezolid [Zyvox] 600 mg PO Q12H 07/12/22 16:30 Insulin Lispro [Humalog] See Protocol SUBCUT QIDACHS 07/12/22 17:31 Glucose, Whole Blood Routine 07/12/22 17:35 Metoprolol Succinate ER [Toprol XL] 25 mg PO DAILY 07/12/22 18:00 0.9 % Sodium Chloride [Ns] 100 ml dilTIAZem HCL [Cardizem] 125 mg IVCONT Per Protocol mg/hr Linezolid [Zyvox] 600 mg PO Q12H 07/12/22 18:16 dilTIAZem HCL [Cardizem] 125 mg IVCONT .[facility] ONE 07/12/22 19:00 Meropenem 500 mg 0.9 % Sodium Chloride [Ns] 50 ml IV Q24H 07/12/22 19:59 Glucose, Whole Blood Routine 07/12/22 21:09 Meropenem 500 mg IV .[facility] ONE 07/13/22 07:45 Glucose, Whole Blood Routine 07/13/22 09:00 fentaNYL [Duragesic] 12 mcg TRANSDERMA Q72H 07/13/22 09:48 Basic Metabolic Panel DAILY@0600 Complete Blood Count Auto Diff DAILY@0600 07/13/22 11:33 Glucose, Whole Blood Routine 07/13/22 15:00 Linezolid [Zyvox] 600 mg PO Q12H Meropenem 500 mg 0.9 % Sodium Chloride [Ns] 50 ml IV Q24H 07/13/22 18:44 Glucose, Whole Blood Routine Meropenem 500 mg IV .STK-MED ONE 07/13/22 19:57 Vancomycin Random Stat 07/13/22 20:07 Glucose, Whole Blood Routine 07/14/22 CT abdomen pelvis wo IV con Routine 07/14/22 06:10 Basic Metabolic Panel DAILY@0600 Complete Blood Count Auto Diff DAILY@0600 07/14/22 07:24 Glucose, Whole Blood Routine 07/14/22 11:42 Glucose, Whole Blood Routine 07/14/22 14:56 Meropenem 500 mg IV .STK-MED ONE 07/14/22 15:10 Glucose, Whole Blood Routine 07/14/22 19:34 Glucose, Whole Blood Routine 07/15/22 05:29 Basic Metabolic Panel DAILY@0600 Complete Blood Count Auto Diff DAILY@0600 07/15/22 07:26 Glucose, Whole Blood Routine 07/15/22 09:00 polyethylene glycoL 3350 [Miralax] 17 gm PO DAILY 07/15/22 11:20 Glucose, Whole Blood Routine 07/15/22 15:56 Meropenem 500 mg IV .STK-MED ONE 07/15/22 16:42 Glucose, Whole Blood Routine 07/15/22 20:07 Glucose, Whole Blood Routine 07/16/22 09:00 Midodrine HCl [ProAmatine] 5 mg PO TUTHSA@0900 07/16/22 11:43 Glucose, Whole Blood Routine 07/16/22 12:00 Epoetin Ciara [Procrit] 10,000 unit SUBCUT TuThSa@1200 07/16/22 14:09 Meropenem 500 mg IV .STK-MED ONE 07/16/22 15:14 Morphine Sulfate 2 mg IVPUSH ONCE ONE 07/16/22 16:52 Glucose, Whole Blood Routine 07/16/22 20:35 Glucose, Whole Blood Routine 07/16/22 20:42 HYDROmorphone HCl [Dilaudid] 2 mg IVPUSH ONCE ONE 07/17/22 09:00 Metoprolol Tartrate [Lopressor] 25 mg PO TID 07/17/22 09:04 Glucose, Whole Blood Routine 07/17/22 10:09 BMP [Basic Metabolic Panel] Routine Complete Blood Count Auto Diff Routine 07/17/22 11:50 oxyCODONE HCl Immed Release [Roxicodone] 5 mg PO Q6H PRN 07/17/22 11:51 Glucose, Whole Blood Routine Morphine Sulfate 2 mg IVPUSH Q6H PRN 07/17/22 17:32 Glucose, blood poc QIDACHS 07/17/22 17:34 Glucose, Whole Blood Routine 07/17/22 17:51 Meropenem 500 mg IV .STK-MED ONE 07/17/22 20:54 Glucose, Whole Blood Routine 07/18/22 07:26 Glucose, Whole Blood Routine 07/18/22 11:07 Magnesium Stat 07/18/22 11:14 Glucose, Whole Blood Routine 07/18/22 14:46 Meropenem 500 mg IV .STK-MED ONE 07/18/22 16:19 Glucose, Whole Blood Routine 07/18/22 20:49 Glucose, Whole Blood Routine 07/19/22 08:10 Glucose, Whole Blood Routine 07/19/22 11:16 Glucose, Whole Blood Routine 07/19/22 11:21 Albumin Level Stat Basic Metabolic Panel Stat Magnesium Stat Phosphorus Stat 07/19/22 11:57 Add Laboratory Test Stat 07/19/22 15:50 Meropenem 500 mg IV .STK-MED ONE 07/19/22 16:18 Glucose, Whole Blood Routine 07/19/22 18:00 MVI, Adult [Infuvite Adult] 17 ml Trace Elements w/o chromium [Tralement] 1.7 ml AA 4.25%/Calcium/Lytes/Dex 10% [Clinimix E 4.25%-10%] 2,000 ml IV DAILY@1800 07/19/22 19:31 Glucose, Whole Blood Routine 07/20/22 XR abdomen 1V Stat XR chest 1V Stat 07/20/22 08:01 Albumin Level Routine Basic Metabolic Panel Routine Magnesium Routine Phosphorus Routine 07/20/22 08:15 Glucose, Whole Blood Routine 07/20/22 11:42 Glucose, Whole Blood Routine 07/20/22 15:51 Meropenem 500 mg IV .STK-MED ONE 07/20/22 16:06 Glucose, Whole Blood Routine 07/20/22 18:00 Potassium Chloride 10 meq Sodium Chloride 23.4% 70 meq Magnesium Sulfate 5 meq Potassium Phosphate [KPhos] 15 mmol Calcium Gluconate 4.65 meq MVI, Adult [Infuvite Adult] 14 ml Trace Elements w/o chromium [Tralement] 1.4 ml Amino Acids 4.25%/Dextrose 10% [Clinimix 4.25%-10%] 1,000 ml IVCONT DAILY@1800 07/20/22 19:40 Glucose, Whole Blood Routine 07/21/22 07:21 Hemodialysis Treatment .As Directed 07/21/22 08:00 Glucose, Whole Blood Routine 07/21/22 11:58 Albumin Level Stat Basic Metabolic Panel Stat Magnesium Stat Phosphorus Stat 07/21/22 12:19 Glucose, Whole Blood Routine 07/21/22 12:30 NPO Diet 07/21/22 14:48 Meropenem 500 mg IV .STK-MED ONE 07/21/22 15:56 Glucose, Whole Blood Routine 07/21/22 16:36 Meropenem 500 mg IV .STK-MED ONE 07/21/22 18:00 Potassium Chloride 10 meq Sodium Chloride 23.4% 85 meq Magnesium Sulfate 5 meq Potassium Phosphate [KPhos] 15 mmol Calcium Gluconate 4.65 meq MVI, Adult [Infuvite Adult] 14 ml Trace Elements w/o chromium [Tralement] 1.4 ml Amino Acids 4.25%/Dextrose 10% [Clinimix 4.25%-10%] 1,000 ml IVCONT DAILY@1800 07/21/22 19:00 fentaNYL [Duragesic] 12 mcg TRANSDERMA Q72H 07/21/22 21:14 Glucose, Whole Blood Routine 07/22/22 08:03 Albumin Level Stat Basic Metabolic Panel Stat Magnesium Stat Phosphorus Stat 07/22/22 08:26 Glucose, Whole Blood Routine 07/22/22 11:06 Glucose, Whole Blood Routine 07/22/22 11:59 Diabetic Diet 07/22/22 13:47 Hepatitis B,C Profile Routine 07/22/22 15:34 Meropenem 500 mg IV .STK-MED ONE 07/22/22 16:49 Glucose, Whole Blood Routine 07/22/22 18:00 Sodium Chloride 23.4% 100 meq Magnesium Sulfate 5 meq Calcium Gluconate 4.65 meq MVI, Adult [Infuvite Adult] 10.5 ml Trace Elements w/o chromium [Tralement] 1 ml Amino Acids 4.25%/Dextrose 10% [Clinimix 4.25%-10%] 1,000 ml IVCONT DAILY@1800 07/22/22 19:20 Morphine Sulfate 2 mg IVPUSH Q6H PRN 07/22/22 19:21 oxyCODONE HCl Immed Release [Roxicodone] 5 mg PO Q6H PRN 07/22/22 20:03 Glucose, Whole Blood Routine 07/23/22 05:43 Albumin Level Stat Basic Metabolic Panel DAILY@0600 Magnesium DAILY@0600 Phosphorus DAILY@0600 Triglycerides Stat 07/23/22 07:56 Glucose, Whole Blood Routine 07/23/22 15:23 Glucose, Whole Blood Routine 07/23/22 16:12 Glucose, Whole Blood Routine 07/23/22 18:00 Sodium Chloride 23.4% 130 meq Magnesium Sulfate 5 meq Calcium Gluconate 4.65 meq MVI, Adult [Infuvite Adult] 14 ml Trace Elements w/o chromium [Tralement] 1.4 ml Amino Acids 4.25%/Dextrose 10% [Clinimix 4.25%-10%] 1,000 ml IVCONT DAILY@1800 07/23/22 19:57 Glucose, Whole Blood Routine 07/23/22 23:46 Meropenem 500 mg IV .STK-MED ONE 07/24/22 ECG [address] abdomen pelvis w IV con Stat CT chest w IV con Stat XR abdomen 1V Stat XR chest 1V Stat XR chest 1V Stat 07/24/22 06:21 Albumin Level DAILY@0600 Basic Metabolic Panel DAILY@0600 Magnesium DAILY@0600 Phosphorus DAILY@0600 07/24/22 08:46 Glucose, Whole Blood Routine 07/24/22 09:18 Dextrose 50 % [D50] 25 gm IVPUSH Q15M PRN Glucose GeL [Glutose 15] 15 gm PO Q15M PRN 07/24/22 09:33 Prochlorperazine Edisylate [Compazine] 5 mg IV Q4H PRN 07/24/22 09:46 Glucose, Whole Blood Routine 07/24/22 10:00 Dextrose 50 % [D50] 25 gm IVPUSH Q15M PRN 07/24/22 10:20 Glucose, Whole Blood Routine 07/24/22 10:34 Glucose, Whole Blood Routine 07/24/22 10:58 EKG Documentation DIRECTED 07/24/22 11:08 Lactic Acid Stat Troponin-I High Sensitivity Stat 07/24/22 11:11 Glucose, Whole Blood Routine 07/24/22 11:29 Dietitian / Nutrition Consult .Routine 07/24/22 11:30 Amiodarone HCL [Cordarone] 400 mg PO BID 07/24/22 11:42 Glucose, Whole Blood Routine 07/24/22 12:00 Dextrose 50 % [D50] 25 gm IVPUSH ONCE ONE 07/24/22 12:37 Glucose, Whole Blood Routine 07/24/22 13:00 NPO Diet 07/24/22 13:17 Glucose, Whole Blood Routine 07/24/22 13:37 Norepinephrine Bitartrate/NS [Levophed] 8 mg in 250 ml IVCONT As directed Sodium Bicarbonate 8.4% 50 meq .ROUTE .STK-MED ONE 07/24/22 13:46 Transfer Order Routine 07/24/22 14:00 NON-Behavioral Restraint Q24H 07/24/22 14:02 propofoL [Diprivan] 50 mg IVPUSH ONCE ONE propofoL [Diprivan] 1,000 mg in 100 ml IVCONT As directed 07/24/22 14:15 fentaNYL citrate/NS [Sublimaze/NS] 1,000 mcg in 100 ml IVCONT Per Protocol mcg/hr 07/24/22 14:19 Venous Blood Gas Stat Venous Blood Gases - POC Stat 07/24/22 14:25 Sodium Bicarbonate 8.4% 100 meq IVPUSH ONCE ONE 07/24/22 14:27 Sodium Bicarbonate 8.4% 50 meq .ROUTE .STK-MED ONE 07/24/22 14:30 Dextrose 5 % [D5w] 850 ml Sodium Bicarbonate 8.4% 150 meq IV 50 mls/hr 07/24/22 15:05 FFP [Fresh Frozen Plasma] Stat PRBC [Red Blood Cells] Stat Platelet Pheresis [Pheresis Platelets] Stat Type and Screen Stat 07/24/22 15:20 iohexoL 350 MG/ML [Omnipaque 350 MG/ML] 100 ml IV ONCE ONE 07/24/22 15:39 CBC W/AUTO DIFF [Complete Blood Count Auto Diff] Stat CMP [Comprehensive Met. Panel] Stat Lactic Acid Stat SLIDE REVIEW Stat VBG [Venous Blood Gas] Stat Venous Blood Gases - POC Stat 07/24/22 15:40 Troponin-I High Sensitivity Stat 07/24/22 15:47 Glucose, Whole Blood Routine 07/24/22 15:49 Dextrose 50 % [D50] 25 gm IVPUSH .STK-MED ONE 07/24/22 16:15 Lactated Ringers [Lr] 1,000 ml IV 999 mls/hr 07/24/22 16:30 0.9 % Sodium Chloride [Ns] 80 ml Pantoprazole Sodium [Protonix] 80 mg IV 8 mg/hr 07/24/22 16:37 Glucose, Whole Blood Routine 07/24/22 16:47 Prothrombin Time INR Stat 07/24/22 17:25 Phytonadione (Vit K1) [Vitamin K] 10 mg 0.9 % Sodium Chloride [Ns] 50 ml IV ONCE 07/24/22 18:00 CBC W/AUTO DIFF [Complete Blood Count Auto Diff] Routine VBG [Venous Blood Gas] Routine Venous Blood Gases - POC Routine ~Lactic Acid-LAB USE ONLY Stat 07/24/22 19:00 Sodium Bicarbonate 8.4% 50 meq IVPUSH ONCE ONE 07/24/22 20:43 BMP [Basic Metabolic Panel] Routine CBC W/AUTO DIFF [Complete Blood Count Auto Diff] Routine PT with INR [Prothrombin Time INR] Routine ~Lactic Acid-LAB USE ONLY Stat 07/24/22 20:59 Glucose, Whole Blood Routine 07/24/22 21:14 Venous Blood Gases - POC Routine 07/24/22 21:44 vancomycin/NS 2,000 mg in 520 ml IV ONCE 07/24/22 22:00 Sodium Bicarbonate 8.4% 50 meq IVPUSH ONCE ONE 07/24/22 22:03 Meropenem 500 mg IV .STK-MED ONE 07/24/22 22:30 Albumin Human 25 % [Kedbumin 25 %] 100 ml IV Q1H 07/25/22 01:13 Venous Blood Gases - POC Routine 07/25/22 01:14 Sodium Bicarbonate 8.4% 50 meq .ROUTE .STK-MED ONE 07/25/22 04:24 Sodium Bicarbonate 8.4% 50 meq .ROUTE .STK-MED ONE 07/25/22 04:26 Sodium Bicarbonate 8.4% 50 meq .ROUTE .STK-MED ONE 07/25/22 04:27 Phenylephrine HCL 10 mg .ROUTE .STK-MED ONE 07/25/22 04:29 Calcium Gluconate/NaCl,Iso-Osm [Calcium Gluconate] 1 gm in 50 ml IV ONCE 07/25/22 04:33 Venous Blood Gases - POC Routine 07/25/22 04:35 Erythrocyte Sedimentation Rate Routine 07/25/22 07:00 CA echo transthoracic complete Routine 07/25/22 07:23 Glucose, Whole Blood Routine 07/25/22 08:46 CXR [XR chest 1V] Stat 07/25/22 09:00 Etomidate [Amidate] 20 mg IVPUSH .STK-MED ONE Phytonadione (Vit K1) [Vitamin K] 10 mg 0.9 % Sodium Chloride [Ns] 50 ml IV Q1H Rocuronium [place] [Zemuron] 100 mg .ROUTE .STK-MED ONE Succinylcholine Chloride [Quelicin] 200 mg IVPUSH .STK-MED ONE 07/25/22 09:58 Venous Blood Gas Stat 07/25/22 09:59 Venous Blood Gases - POC Routine 07/25/22 10:00 B Type Natriuretic Peptide Stat Complete Blood Count no Diff Stat Lactic Acid Stat 07/25/22 11:44 Lidocaine HCl 2% [Xylocaine 2 %] 2 ml .ROUTE .STK-MED ONE propofoL [Diprivan] 200 mg IVPUSH .STK-MED ONE 07/25/22 11:45 Phenylephrine HCL 10 mg .ROUTE .STK-MED ONE 07/25/22 11:48 Glucose, Whole Blood Routine 07/25/22 12:18 ~Lactic Acid-LAB USE ONLY Stat 07/25/22 13:33 Venous Blood Gas Stat Venous Blood Gases - POC Routine 07/25/22 15:17 Hemoglobin and Hematocrit Stat PT with INR [Prothrombin Time INR] Stat 07/25/22 16:30 0.9 % Sodium Chloride [Ns] 100 ml dilTIAZem HCL [Cardizem] 125 mg IVCONT Per Protocol mg/hr 07/25/22 16:41 dilTIAZem HCL [Cardizem] 125 mg IVCONT .STK-MED ONE 07/25/22 16:49 dilTIAZem HCL [Cardizem] 125 mg IVCONT .STK-MED ONE 07/25/22 16:50 Bumetanide [Bumex] 2 mg IVPUSH ONCE ONE 07/25/22 16:51 Chlorothiazide Sodium [Diuril] 500 mg IVPUSH ONCE ONE 07/25/22 16:59 PRBC [Red Blood Cells] Stat Type and Screen Stat 07/25/22 17:00 Container,Empty 0 ml Bumetanide [Bumex] 25 mg IVCONT 0.5 mg/hr Phytonadione (Vit K1) [Vitamin K] 10 mg 0.9 % Sodium Chloride [Ns] 50 ml IV Q6H 07/25/22 17:49 Glucose, Whole Blood Routine 07/25/22 18:00 Magnesium Sulfate 5 meq Calcium Gluconate 4.65 meq MVI, Adult [Infuvite Adult] 14 ml Trace Elements w/o chromium [Tralement] 1.4 ml Amino Acids 4.25%/Dextrose 10% [Clinimix 4.25%-10%] 1,000 ml IVCONT DAILY@1800 07/25/22 18:42 Venous Blood Gas Stat 07/25/22 18:44 Troponin-I High Sensitivity Stat 07/25/22 18:45 Lactic Acid Stat 07/25/22 18:53 Venous Blood Gases - POC Routine 07/25/22 19:03 Cancel Lactic Acid Stat 07/25/22 19:48 ECG 12 lead EKG Routine 07/25/22 22:38 Meropenem 500 mg IV .STK-MED ONE Phytonadione (Vit K1) [Vitamin K] 10 mg IV .STK-MED ONE 07/25/22 23:42 Glucose, Whole Blood Routine 07/26/22 00:39 Venous Blood Gases - POC Routine 07/26/22 02:13 dilTIAZem HCL [Cardizem] 125 mg IVCONT .STK-MED ONE 07/26/22 02:18 dilTIAZem HCL [Cardizem] 125 mg IVCONT .STK-MED ONE 07/26/22 05:05 SLIDE REVIEW Routine 07/26/22 05:07 Venous Blood Gas Routine Venous Blood Gases - POC Routine 07/26/22 06:01 Glucose, Whole Blood Routine 07/26/22 06:23 H pylori Ag Stool Routine 07/26/22 06:39 EKG Documentation DIRECTED 07/26/22 07:00 Albumin Human 25 % [Kedbumin 25 %] 100 ml IV Q1H 07/26/22 07:39 ~Lactic Acid-LAB USE ONLY Stat 07/26/22 08:55 Cancel Lactic Acid Stat Magnesium Sulfate/D5W 1 gm in 100 ml IV ONCE 07/26/22 09:09 Digoxin [Lanoxin] 0.25 mg IVPUSH ONCE ONE 07/26/22 09:15 Atorvastatin Calcium [Lipitor] 80 mg PO DAILY Esmolol HCl/NaCl Iso [Brevibloc/NaCl] 2,500 mg in 250 ml IVCONT Per Protocol mcg/kg/min 07/26/22 11:36 Epoetin Ciara [Procrit] 20,000 unit SUBCUT ONCE ONE 07/26/22 11:42 Glucose, Whole Blood Routine 07/26/22 14:00 NON-Behavioral Restraint Q24H 07/26/22 14:14 Ketamine HCl/NS [Ketamine Hcl/NS 100 MG/10 ML Syringe] 100 mg IVPUSH .STK-MED ONE propofoL [Diprivan] 200 mg IVPUSH .STK-MED ONE 07/26/22 14:15 Ketamine HCl/NS [Ketamine Hcl/NS 100 MG/10 ML Syringe] 30 mg IVPUSH ONCE ONE propofoL [Diprivan] 20 mg IVPUSH ONCE ONE 07/26/22 15:26 Vancomycin Random Stat 07/26/22 16:35 Amiodarone HCL [Cordarone] 900 mg .ROUTE .STK-MED ONE 07/26/22 16:45 vancomycin HCL 500 mg 0.9 % Sodium Chloride [Ns] 100 ml IV ONCE 07/26/22 17:12 vancomycin HCL 500 mg .ROUTE .STK-MED ONE 07/26/22 17:15 Amiodarone/Dextrose [Nexterone] 150 mg in 100 ml IV ONCE 07/26/22 17:19 propofoL [Diprivan] 200 mg IVPUSH .STK-MED ONE 07/26/22 17:24 Glucose, Whole Blood Routine 07/26/22 17:28 XR chest 1V Stat 07/26/22 17:50 propofoL [Diprivan] 30 mg IVPUSH ONCE ONE 07/26/22 17:54 VBG [Venous Blood Gas] Stat Venous Blood Gases - POC Routine 07/26/22 17:56 Lactic Acid Stat 07/26/22 18:00 Digoxin [Lanoxin] 0.25 mg IVPUSH ONCE ONE MVI, Adult [Infuvite Adult] 14 ml Trace Elements w/o chromium [Tralement] 1.4 ml Amino Acids 4.25%/Dextrose 10% [Clinimix 4.25%-10%] 1,000 ml IVCONT DAILY@1800 07/26/22 20:31 ~Lactic Acid-LAB USE ONLY Stat 07/26/22 21:00 Amiodarone/Dextrose [Nexterone] 150 mg in 100 ml IV ONCE 07/26/22 23:32 Glucose, Whole Blood Routine 07/26/22 23:55 Meropenem 500 mg IV .STK-MED ONE 07/27/22 ECG 12 lead EKG Routine CXR [XR chest 1V] Stat 07/27/22 03:29 Rocuronium [place] [Zemuron] 50 mg .ROUTE .STK-MED ONE 07/27/22 04:54 Venous Blood Gases - POC Routine 07/27/22 04:55 SLIDE REVIEW Routine 07/27/22 05:59 Glucose, Whole Blood Routine 07/27/22 06:37 Pheresis Platelets Stat 07/27/22 07:34 Amiodarone HCL [Cordarone] 900 mg .ROUTE .STK-MED ONE 07/27/22 07:58 Magnesium Sulfate/D5W 1 gm in 100 ml IV ONCE 07/27/22 07:59 EKG Documentation DIRECTED 07/27/22 08:28 Lactic Acid Stat 07/27/22 08:45 Esmolol HCl/NaCl Iso [Brevibloc/NaCl] 2,500 mg in 250 ml IVCONT Per Protocol mcg/kg/min 07/27/22 09:05 Cancel Lactic Acid Stat 07/27/22 10:38 Silver Nitrate Applicator 1 appl TOPICAL .STK-MED ONE 07/27/22 10:50 Silver Nitrate Applicator 1 appl TOPICAL ONCE ONE 07/27/22 11:57 Glucose, Whole Blood Routine 07/27/22 12:00 CBC NO DIFF [Complete Blood Count no Diff] Stat 07/27/22 17:55 Vancomycin Random Stat 07/27/22 17:58 Glucose, Whole Blood Routine 07/27/22 21:00 Albumin Human 25 % [Kedbumin 25 %] 100 ml IV Q1H Insulin Glargine,Hum.rec.anlog [Lantus] 16 unit SUBCUT BEDTIME Insulin Glargine,Hum.rec.anlog [Lantus] 20 unit SUBCUT BEDTIME 07/27/22 21:15 Albumin Human 25 % [Kedbumin 25 %] 100 ml IV Q1H 07/27/22 23:16 Cancel Lactic Acid Stat 07/27/22 23:34 Meropenem 500 mg IV .STK-MED ONE 07/27/22 23:58 Glucose, Whole Blood Routine 07/28/22 CT abdomen pelvis wo IV con Stat CT chest wo IV con Stat US venous duplex LE BI Stat 07/28/22 05:02 Venous Blood Gases - POC Routine 07/28/22 05:12 Glucose, Whole Blood Routine 07/28/22 06:40 Magnesium Sulfate/D5W 1 gm in 100 ml IV ONCE Potassium Chloride Packet [Klor-Con Packet] 40 meq PO ONCE ONE 07/28/22 07:15 Albumin Human 25 % [Kedbumin 25 %] 100 ml IV Q1H 07/28/22 08:14 Amiodarone HCL [Cordarone] 900 mg .ROUTE .STK-MED ONE 07/28/22 08:25 ~Lactic Acid-LAB USE ONLY Stat 07/28/22 08:30 Albumin Human 25 % [Kedbumin 25 %] 100 ml IV Q1H 07/28/22 11:50 Glucose, Whole Blood Routine 07/28/22 11:55 Dextrose 50 % [D50] 25 gm IVPUSH .STK-MED ONE 07/28/22 12:56 Glucose, Whole Blood Routine Ketamine HCl/NS [Ketamine Hcl/NS 100 MG/10 ML Syringe] 100 mg IVPUSH .STK-MED ONE 07/28/22 14:39 Ketamine HCl/NS [Ketamine Hcl/NS 100 MG/10 ML Syringe] 20 mg IVPUSH ONCE ONE 07/28/22 15:03 Vancomycin Random Stat 07/28/22 16:20 Glucose, Whole Blood Routine 07/28/22 16:46 vancomycin HCL 500 mg .ROUTE .STK-MED ONE 07/28/22 16:47 Direct Sandi (DEWAYNE) Routine Albumin Level AM B Type Natriuretic Peptide AM B Type Natriuretic Peptide AM BMP [Basic Metabolic Panel] Routine BNP [B Type Natriuretic Peptide] Routine BNP [B Type Natriuretic Peptide] Routine Basic Metabolic Panel AM C Reactive Protein Routine CBC NO DIFF [Complete Blood Count no Diff] Routine CBC NO DIFF [Complete Blood Count no Diff] Urgent CBC W/AUTO DIFF [Complete Blood Count Auto Diff] RDAILY CRP [C Reactive Protein] Routine Complete Blood Count Auto Diff AM Complete Blood Count Auto Diff AM Complete Blood Count no Diff AM Complete Blood Count no Diff Routine Comprehensive Met. Panel AM Comprehensive Met. Panel AM Comprehensive Met. Panel AM Comprehensive Met. Panel DAILY@0600 D Dimer High Sensitivity Routine Digoxin Stat Hemoglobin and Hematocrit Stat Lactate Dehydrogenase Routine Lactic Acid AM Lactic Acid Routine Lactic Acid Routine Lactic Acid Stat Lactic Acid Urgent Magnesium AM Magnesium AM Magnesium AM Magnesium AM Magnesium DAILY@0600 PT with INR [Prothrombin Time INR] AM PT with INR [Prothrombin Time INR] AM PT with INR [Prothrombin Time INR] DAILY@0600 Partial Thromboplastin Time Routine Phosphorus AM Phosphorus AM Phosphorus AM Phosphorus DAILY@0600 Prothrombin Time INR Routine Reticulocyte Count Routine Troponin-I High Sensitivity AM Troponin-I High Sensitivity AM Troponin-I High Sensitivity AM Troponin-I High Sensitivity Stat Venous Blood Gas AM Venous Blood Gas AM Venous Blood Gas DAILY@0600 Venous Blood Gas RDAILY Venous Blood Gas Routine ~Lactic Acid-LAB USE ONLY Stat ~Lactic Acid-LAB USE ONLY Stat ~Lactic Acid-LAB USE ONLY Stat 07/28/22 18:00 Glucose, Whole Blood Routine vancomycin HCL 500 mg 0.9 % Sodium Chloride [Ns] 100 ml IV ONCE@1800 07/28/22 18:35 Glucose, Whole Blood Routine 07/28/22 19:09 Glucose, Whole Blood Routine 07/28/22 21:03 Glucose, Whole Blood Routine 07/28/22 21:15 Isosorbide Dinitrate [Isordil] 5 mg PO 0800,1300,1800 07/28/22 22:03 Glucose, Whole Blood Routine 07/28/22 23:37 Glucose, Whole Blood Routine 07/28/22 23:47 Isosorbide Dinitrate [Isordil] 5 mg PO ONCE ONE 07/28/22 23:49 Meropenem 500 mg IV .STK-MED ONE 07/29/22 01:51 Glucose, Whole Blood Routine 07/29/22 02:53 Glucose, Whole Blood Routine 07/29/22 05:22 Venous Blood Gases - POC Routine 07/29/22 05:36 Glucose, Whole Blood Routine 07/29/22 09:00 Isosorbide Dinitrate [Isordil] 10 mg PO TID 07/29/22 10:00 Epoetin Ciara [Procrit] 20,000 unit SUBCUT ONCE ONE 07/29/22 11:52 Glucose, Whole Blood Routine 07/29/22 14:43 Amiodarone HCL [Cordarone] 900 mg .ROUTE .STK-MED ONE Laboratory Last Values WBC 12.6 X10*3/uL (4.8-10.8) H 07/29/22 05:17 RBC 3.20 X10*6/uL (4.60-5.80) L 07/29/22 05:17 Hgb 9.8 g/dl (14.0-18.0) L 07/29/22 05:17 Hct 28.2 % (42.0-52.0) L 07/29/22 05:17 MCV 88.1 fL (80.0-98.0) 07/29/22 05:17 MCH 30.6 pg (27.0-33.0) 07/29/22 05:17 MCHC 34.8 g/dl (31.0-36.0) 07/29/22 05:17 RDW 17.4 % (11.0-16.0) H 07/29/22 05:17 Plt Count 21 X10*3/uL (160-400) L 07/29/22 05:17 MPV 12.5 fL (9.4-12.4) H 07/29/22 05:17 Immature Gran % (Auto) 1.0 % (0.0-0.4) H 07/29/22 05:17 Neut % (Auto) 89.8 % (45-73) H 07/29/22 05:17 Lymph % (Auto) 2.2 % (20-40) L 07/29/22 05:17 [place] % (Auto) 6.6 % (2-11) 07/29/22 05:17 Eos % (Auto) 0.1 % (0-4) 07/29/22 05:17 Baso % (Auto) 0.3 % (0-2) 07/29/22 05:17 Lymph # (Auto) 0.3 X10*3/uL (1.2-4.9) L 07/29/22 05:17 [place] # (Auto) 0.8 X10*3/uL (0.1-1.2) 07/29/22 05:17 Eos # (Auto) 0.0 X10*3/uL (0.0-0.4) 07/29/22 05:17 Baso # (Auto) 0.0 X10*3/uL (0.0-0.2) 07/29/22 05:17 Abs Immat Gran (auto) 0.12 X10*3/uL (0.00-0.03) H 07/29/22 05:17 Absolute Neuts (auto) 11.3 x10*3/uL (2.0-8.3) H 07/29/22 05:17 Absolute Nucleated RBC 0.000 X10*3/uL (0.0-0.012) 07/29/22 05:17 Nucleated RBC % (auto) 0.0 /100WBC (0.0-0.2) 07/29/22 05:17 Smear Tech's Comments VERIFIED 07/27/22 04:55 Smear Path Review 07/24/22 15:39 ESR 13 MM/HR (0-15) 07/25/22 04:35 Absolute Retic 0.023 X10*6/uL (0.026-0.095) L 07/28/22 16:47 Percent Retic 0.7 % (0.5-1.8) 07/28/22 16:47 Immature Retic Fraction 5.5 % (2.3-13.4) 07/28/22 16:47 Retic Hgb Equivalent 36.9 pg (30.0-35.0) H 07/28/22 16:47 PT 18.0 SEC (10.0-13.1) H 07/28/22 16:47 INR 1.5 (0.9-1.1) H 07/28/22 16:47 APTT 34.2 SEC (26.0-36.4) 07/28/22 16:47 D-Dimer High Sensitivty 1297 NG/ML 07/28/22 16:47 VBG pH 7.41 (7.32-7.43) 07/29/22 05:22 VBG pCO2 41 mmHg 12/09/22 05:22 VBG pO2 44 mmHg 07/29/22 05:22 VBG HCO3 26 mmol/L (22-26) 07/29/22 05:22 VBG O2 Saturation 73.0 % 07/29/22 05:22 VBG Base Excess 1.9 mmol/L 07/29/22 05:22 Sodium 133 mmol/L (135-145) L 07/29/22 05:17 Potassium 3.5 mmol/L (3.3-5.1) 07/29/22 05:17 Chloride 99 mmol/L (96-108) 07/29/22 05:17 Carbon Dioxide 24 mmol/L (22-29) 07/29/22 05:17 Anion Gap 14 (12-20) 07/29/22 05:17 BUN 40 mg/dL (9-16) H 07/29/22 05:17 Creatinine 1.81 mg/dL (0.5-1.4) H 07/29/22 05:17 Estim Creat Clear Calc 53.6 07/29/22 05:17 Estimated GFR 37 07/29/22 05:17 POC Glucose 109 mg/dL (60-115) 07/29/22 11:52 Random Glucose 95 mg/dL (60-115) 07/29/22 05:17 Estimat Average Glucose 169 mg/dL 07/11/22 05:40 Hemoglobin A1c % 7.5 % 07/11/22 05:40 Lactic Acid 2.3 mmol/L (0.5-2.0) H* 07/28/22 05:00 Lactic Acid F/U @ 2Hr 1.7 mmol/L (0.5-2.0) 07/28/22 08:25 Lactic Acid F/U @ 4Hr 4.6 mmol/L (0.5-2.0) H* 07/26/22 10:45 Calcium 8.1 mg/dL (8.4-10.2) L D 07/29/22 05:17 Phosphorus 2.7 mg/dL (2.7-4.5) 07/29/22 05:17 Magnesium 1.9 mg/dL (1.6-2.6) 07/29/22 05:17 Total Bilirubin 2.2 mg/dL (0.0-1.0) H 07/29/22 05:17 Direct Bilirubin 0.3 mg/dL (0.0-0.5) 07/11/22 05:40 AST 92 U/L (5-37) H 07/29/22 05:17 ALT 203 U/L (0-40) H 07/29/22 05:17 Alkaline Phosphatase 126 U/L (39-117) H 07/29/22 05:17 Lactate Dehydrogenase 305 U/L (118-273) H 07/28/22 16:47 Troponin I High Sens 1810.4 ng/L (<3.5-35.0) H* D 07/29/22 05:17 C-Reactive Protein 10.96 mg/dL (< or = 0.50) H 07/26/22 00:32 B-Natriuretic Peptide 4134 pg/mL (<100) H 07/29/22 05:17 Total Protein 4.9 g/dL (6.5-8.0) L 07/29/22 05:17 Albumin 3.1 g/dL (3.5-5.0) L 07/29/22 05:17 Triglycerides 20 mg/dL 07/23/22 05:43 Ur 24 Hour Volume Cancelled 07/15/22 Unknown Ur Creatinine mg/dL Cancelled 07/15/22 Unknown Ur Creatinine 24 Hour Cancelled 07/15/22 Unknown Creat Clearance 24 Hr Cancelled 07/15/22 Unknown Stool H. pylori Ag SEE NOTE 07/26/22 06:23 Random Vancomycin 11.6 mcg/mL (15-20) L 07/28/22 15:03 Digoxin 1.4 ng/mL (0.8-2.0) 07/27/22 04:55 Acetone, Qual Negative (Negative) 07/11/22 05:40 Heparin Dep Plt Ab OD 0.176 OD UNITS 07/26/22 09:03 Hep-Induced Plt Ab Carolyn Negative (Negative) 07/26/22 09:03 COVID-19 (ESA) Negative (Negative) 07/11/22 08:17 COVID-19 Clin Com See Note 07/11/22 08:17 Hep Bs Antigen Negative (Negative) 07/22/22 13:47 Hep Bs Antibody NONREACTIVE (Nonreactive) 07/22/22 13:47 Hep B Core Total Ab Nonreactive (Nonreactive) 07/22/22 13:47 Hepatitis C Ab (EIA) Nonreactive (Nonreactive) 07/22/22 13:47 Blood Type A Positive 07/25/22 16:59 Antibody Screen NEGATIVE 07/25/22 16:59 DEWAYNE, Polyspecific NEGATIVE 07/28/22 16:47 Positive DEWAYNE Work-up TNP 07/28/22 16:47 Crossmatch See Detail 07/25/22 16:59 - Imaging Radiologist's impression: ITS Impressions Chest X-Ray 07/11/22 06:05 IMPRESSION: 1. No acute pulmonary disease. 2. Support lines as above. Abdomen/Pelvis CT 07/14/22 13:13 IMPRESSION: -Normal caliber loops of small bowel with a moderate stool burden noted within the proximal and mid colon. Ostomy noted within the left lower abdomen. No CT evidence to suggest an obstructive picture. -Diffusely decreased liver attenuation suggesting hepatic steatosis. -Cholelithiasis. Fleischner guidelines were followed. Abdomen X-Ray 07/20/22 17:18 IMPRESSION: 1. Marked gaseous distention of the stomach. Consider NG tube decompression as clinically indicated. 2. No other dilated air-filled bowel loops. 3. Moderate to large amount of formed stool in the right colon. Chest X-Ray 07/20/22 17:18 IMPRESSION: 1. Pulmonary vascular congestion/possible mild interstitial edema. 2. Small bilateral pleural effusions, right slightly larger than left. 3. No dense airspace consolidation. Abdomen X-Ray 07/24/22 11:52 IMPRESSION: No acute disease within the chest. Large amount of stool within the right and transverse colon. Chest X-Ray 07/24/22 11:52 IMPRESSION: No acute disease within the chest. Large amount of stool within the right and transverse colon. Abdomen/Pelvis CT 07/24/22 15:38 IMPRESSION: Small bilateral pleural effusions with multiple rib fractures as described above. Anasarca and diffuse fat streaking within the mesentery and retroperitoneal fat as well. Cholelithiasis without evidence of acute cholecystitis. Poorly evaluated spleen and splenic laceration is not excluded. Ultrasound would be of help in further evaluation of this. Small amount of free fluid within the abdomen and pelvis. Old granulomatous disease. 6 mm right lower lobe nodule. According to the UPDATED 2017 Fleischner Society recommendations, the advised follow-up imaging for a single 6-8 mm solid nodule is: LOW RISK PATIENT: CT at 6-12 months, then consider CT at 18-24 months. HIGH RISK PATIENT: CT at 6-12 months, then at 18-[address] 07/24/22 15:38 IMPRESSION: Small bilateral pleural effusions with multiple rib fractures as described above. Anasarca and diffuse fat streaking within the mesentery and retroperitoneal fat as well. Cholelithiasis without evidence of acute cholecystitis. Poorly evaluated spleen and splenic laceration is not excluded. Ultrasound would be of help in further evaluation of this. Small amount of free fluid within the abdomen and pelvis. Old granulomatous disease. 6 mm right lower lobe nodule. According to the UPDATED 2017 Fleischner Society recommendations, the advised follow-up imaging for a single 6-8 mm solid nodule is: LOW RISK PATIENT: CT at 6-12 months, then consider CT at 18-24 months. HIGH RISK PATIENT: CT at 6-12 months, then at 18-24 months. Chest X-Ray 07/24/22 18:56 IMPRESSION: 1. Endotracheal tube tip terminates 4.2 cm above the jarred. 2. Enteric tube extends below the diaphragm, distal tip not included in the [id number]. 3. 2 right IJ lines, as above. 4. Small right pleural effusion versus pleural thickening. Chest X-Ray 07/25/22 09:14 FINDINGS/IMPRESSION: The study is limited by portable technique, low lung volumes, and overlying leads. The tip of a new left internal jugular presumed central venous line projects over the expected location of the superior vena cava. Otherwise, there has been no significant radiographic change compared with one day prior. No pneumothorax or effusion is seen. No acute infiltrate is noted. Previously seen lines, tubes, and hardware appear unchanged. Chest X-Ray 07/26/22 17:49 IMPRESSION: 1. Enteric tube terminating in the stomach. 2. Small left-sided pleural fluid, new compared to 07/25/2022. Chest X-Ray 07/27/22 04:10 IMPRESSION: *Radiographically satisfactory configuration of multiple lines and tubes. *Trace left pleural effusion. Abdomen/Pelvis CT 07/28/22 15:54 IMPRESSION: New bilateral lower lobe infiltrates along with tree-in-bud inflammatory opacities in the right upper lobe. Cholelithiasis without evidence of acute cholecystitis. Increase in amount of free fluid within the abdomen and pelvis. Chest CT 07/28/22 15:54 IMPRESSION: New bilateral lower lobe infiltrates along with tree-in-bud inflammatory opacities in the right upper lobe. Cholelithiasis without evidence of acute cholecystitis. Increase in amount of free fluid within the abdomen and pelvis. Venous Duplex 07/28/22 21:54 IMPRESSION: No DVT demonstrated in the bilateral lower extremities. Assessment and Plan Patient Active problem list reviewed?: Yes (1) Anemia Status: Acute Assessment and plan: 67-year-old gentleman, with End stage kidney disease maintain on dialysis. Anemia and thrombocytopenia: DIFFERENTIAL DIAGNOSIS: 1. IRON DEFICIENCY ANEMIA: 2. ANEMIA OF CHRONIC DISEASE: Patient does have dialysis dependent CKD. With super added sepsis. 3. HEMOLYTIC ANEMIA: Is in the differential. 4. MICROANGIOPATHIC PICTURE: DIC, related to sepsis. 5. UNDERLYING MYELO INFILTRATIVE DISORDER: The possible it is less likely, given the above clinical picture. 1. Anemia: D/D; GI blood loss. ? Versus hemolysis. Work up is in progress. 15. Thrombocytopenia: .? Likely related to sepsis picture. W/U: .? Heparin Ab negative. Coagulopathy: related to vitamin k deficiency: liver disease, sepsis, IV antibiotics. Fibrinogen: 551. D Dimer: 1300. No DIC. PLAN: Will follow labs carefully. Transfuse platelets if less than 15, or for bleeding. ?Thanks, - Time Spent With Patient Time Spent with Patient (in minutes): 25
[2022-07-29] MEDS: DOBUTamine HCL/D5W 500 MG/250 ML IV.SOLN 7.09 MG IVCONT (17:43)
[2022-07-29 18:07] LABS: Glucose, Whole Blood 105 mg/dL (60-115)
[2022-07-29 19:34] LABS: Vancomycin Random 14.5 mcg/mL (15-20)
--- NOTE | 2022-07-29 19:50 | HE.PHANOTE ---
VANCO DOSING BASED ON TROUGH OF 14.5 POST DIALYSIS DOSE HELD TODAY. WILL FOLLOW UP IN AM TO CHECK DIALYSIS SCHEDULE
--- NOTE | 2022-07-29 23:04 | PC.NURSE ---
PATIENT ON SEDATION VACATION AT THE BEGINNING OF SHIFT, PATIENT ABLE TO FOLLOW COMMANDS, NOD Y/N TO QUESTIONS, AND EYES TRACKING. PATIENT EXTUBATED AT 1257. RT, MD , AND RN BEDSIDE. PATIENT TOLERATED WELL, POSITIVE COUGH AND GAG AFTER EXTUBATION. PATIENT PLACED ON HFNC 35%/40L. FENTANYL GTT D/C PER MD, SEE EMAR. DIALYSIS PREFORMED, REMOVED 5L OF FLUID. LEVOPHED GTT HAD TO BE RESTARTED TO MAINTAIN SBP DURING THEN TITRATED DOWN AFTER COMPLETION OF DIALYSIS. BANDAGES TO BLE AND BUE CHANGED AND REDRESSED, ALL DRESSINGS CDI AT END OF SHIFT. BM X2 SEMI SOFT FOR A COMBINBED TOTAL OF 500ML. OSTOMY LEAKING, AREA CLEANED, NEW OSTOMY APPLIED. DOBUTAMINE GTT TITRATED DOWN PER PA, SEE EMAR. WOUNDVAC EMPTIED OF 500ML OF DRAINAGE. REPOSITIONED Q2HR, ROUTINE ORAL CARE PREFORMED, BATHED, PATIENT AND FAMILY UPDATED ON HEALTH STATUS. AT APPROXIMATELY 2200 WHILE RN WAS CLEANING ROOM PATIENT CALLED RN BEDSIDE. PATIENT MADE MULTIPLE COMMENTS DURING CONVERSATION; PATIENT: HOW LONG DO I HAVE TO BE HERE? RN: BE WHERE? PATIENT: ALIVE. PATIENT: I JUST WANT TO GO. RN: GO WHERE? PATIENT: TO [facility]. PA MADE AWARE OF PATIENT STATEMENTS.
[2022-07-29 23:36] LABS: Glucose, Whole Blood 116 mg/dL (60-115)
[2022-07-30] VITALS (29 sets, daily range): BP systolic 88–111; BP diastolic 44–63; PULSE 77–116; RESP 9–22; TEMP 36.1–37.2; O2SAT 90–100; BMI 27.3
[2022-07-30 00:38] LABS: Fibrinogen 551 MG/DL (259-690)
[2022-07-30] MEDS: 0.9 % Sodium Chloride Flush 3 ML SYRINGE IVFLUSH ×3 (01:16→16:37)
[2022-07-30] MEDS: Isosorbide Dinitrate 10 MG TABLET PO ×3 (01:32→21:34)
--- NOTE | 2022-07-30 03:19 | PC.NURSE ---
ASSUMED CARE OF PT AT 2300. PT ON HI FLOW O2 OF 40L AND 35%. NO ACUTE RESP DIFFICULTIES. O2 SRE19-62%. PT VERY DROWSY BUT RESPONSIVE TO NAME. HE IS VERY WEAK. SPEAKS IN A WHISPER. DENIES PAIN. MONITOR SHOWS SINUS TACH RATE 110-116, RARE PVC NOTED. VITALS STABLE. DOBUTAMINE AND AMIODARONE DRIPS INFUSING ORDERED VIA TLC LEFT IJ. URINE OUTPUT NIL. COLOSTOMY WITH SMALL AMOUNT OF BROWN STOOL NOTED. WOUND VAC IN PLACE OVER SACRAL WOUND. MULTIPLE SKIN TEARS BOTH ARMS AND LEGS. WEEPING EDEMA NOTED OF ARMS AND LEGS. KAOFEED IN PLACE. ASPIRATED 0ML. SPOKE TO PROVIDER TIM SANTOS AND ASKED ABOUT RESTARTING TUBE FEEDS AND PLAN IS TO RESTART IN AT 6 AM.
[2022-07-30 05:37] LABS: Hematocrit 26.4 % (42.0-52.0); Hemoglobin 9.2 g/dl (14.0-18.0); Mean Corpuscular HGB Conc 34.8 g/dl (31.0-36.0); Mean Corpuscular Volume 88.9 fL (80.0-98.0); Mean Platelet Volume 12.1 fL (9.4-12.4); NRBC Pct Auto 0.2 /100WBC (0.0-0.2); Red Blood Count 2.97 X10*6/uL (4.60-5.80); Red Cell Distribution Width 17.6 % (11.0-16.0)
[2022-07-30 05:38] LABS: VBG Base Excess -5.8 mmol/L; VBG HCO3 18 mmol/L (22-26); VBG pCO2 30 mmHg; VBG pH 7.37 (7.32-7.43); VBG pO2 45 mmHg
[2022-07-30 05:39] LABS: Platelet Count 22 X10*3/uL (160-400)
[2022-07-30] MEDS: Pantoprazole Sodium 40 MG/10 ML VIAL IVPUSH (05:41)
[2022-07-30 05:45] LABS: Venous Blood Gas Refer to POC result
[2022-07-30 05:56] LABS: Alanine Aminotransferase 153 U/L (0-40); Albumin Level 2.8 g/dL (3.5-5.0); Alkaline Phosphatase 131 U/L (39-117); Anion Gap 22 (12-20); Aspartate Amino Transferase 62 U/L (5-37); Bilirubin Total 2.2 mg/dL (0.0-1.0); Blood Urea Nitrogen 48 mg/dL (9-16); Carbon Dioxide 17 mmol/L (22-29); Chloride 99 mmol/L (96-108); Creatinine Clr Calc Pharmacy 41.2; Estimated Glomerular Filt Rate 31; Glucose Random 116 mg/dL (60-115); Magnesium 1.9 mg/dL (1.6-2.6); Potassium 3.7 mmol/L (3.3-5.1); Sodium 134 mmol/L (135-145); Total Protein 4.7 g/dL (6.5-8.0)
[2022-07-30 05:59] LABS: B Type Natriuretic Peptide 3536 pg/mL (<100)
[2022-07-30] MEDS: Albumin Human 25 % 100 ML IV ×2 (07:35→09:05)
--- NOTE | 2022-07-30 08:49 | P.PNGS_ITS ---
Subjective Subjective Date of Service: 07/30/22 Interval history: Patient sedated Physical Exam Vital Signs: Vital Signs: Last Vital Signs Temp 98.9 F 07/30/22 07:00 Pulse 111 H 07/30/22 07:00 Resp 16 07/30/22 08:43 BP 100/53 L 07/30/22 07:00 Pulse Ox 97 07/30/22 07:00 O2 Del Method 07/30/22 07:00 O2 Flow Rate 40 07/30/22 05:51 FiO2 35 07/30/22 07:00 BMI result Body Mass Index 27.3 Const: General: patient obtunded Orientation/consciousness: patient obtunded Back/Spine/Pelvis: Other: wound vac remains in place to sacral decubitus with good seal, no air leak. Skin: Other: diffusely weeping Neuro: General: patient obtunded Extrem: Other: anasarca Objective Data Active Medications Atorvastatin Calcium (Atorvastatin Calcium 80 Mg Tablet) 80 mg G-TUBE DAILY [facility] Last Admin: 07/29/22 08:17 Dose: 80 mg Documented By: DAVID Chlorhexidine Gluconate (Chlorhexidine Gluc Oral Rinse 15 Ml Mouthwash) 15 ml BUCCAL TID [facility] Last Admin: 07/29/22 22:18 Dose: Not Given Documented By: DAVID Non-Admin Reason: Patient Refused Dextrose (Dextrose 50 % 25 Gm/50 Ml Syringe) 25 gm IVPUSH Q15M PRN; Protocol PRN Reason: per Hypoglycemia Standing Ord. Last Admin: 07/28/22 21:08 Dose: 25 gm Documented By: DAVID Meropenem 500 mg/ Sodium (Chloride) 50 mls @ 100 mls/hr IV Q24H [facility] Stop: 08/23/22 23:29 Last Infusion: 07/30/22 03:17 Dose: 0 mls/hr Documented By: MELECIO Propofol (Diprivan) 1,000 mg in 100 mls @ 0 mls/hr IVCONT .Q0M [facility]; Protocol Last Titration: 07/29/22 20:05 Dose: 0 mcg/kg/min, 0 mls/hr Documented By: DAVID Norepinephrine Bitartrate (Levophed) 8 mg in 250 mls @ 0 mls/hr IVCONT .Q0M [facility]; Protocol Last Titration: 07/29/22 20:33 Dose: 0 mcg/kg/min, 0 mls/hr Documented By: DAVID Amiodarone HCl 900 mg/ Sodium (Chloride) 518 mls @ 34.533 mls/hr IVCONT .Q15H1M [facility]; Protocol Last Admin: 07/29/22 14:53 Dose: 0.5 mg/min, 17.27 mls/hr Documented By: DAVID Dobutamine HCl/Dextrose (Dobutrex) 500 mg in 250 mls @ 8.865 mls/hr IVCONT .Q24H [facility] Last Infusion: 07/30/22 00:11 Dose: 1 mcg/kg/min, 3.55 mls/hr Documented By: DAVID Vancomycin HCl 500 mg/ Sodium (Chloride) 110 mls @ 110 mls/hr IV ONCE ONE Stop: 07/28/22 17:08 Albumin Human (Kedbumin 25 %) 100 mls @ 100 mls/hr IV Q1H [facility] Stop: 07/30/22 09:59 Last Admin: 07/30/22 07:35 Dose: 100 mls/hr Documented By: THAIS Insulin Human Lispro (Insulin Lispro 100 Unit/Ml 3 Ml Vial) 0 unit SUBCUT Q6H [facility]; Protocol Last Admin: 07/30/22 06:21 Dose: Not Given Documented By: MELECIO Non-Admin Reason: No Insulin Coverage Isosorbide Dinitrate (Isosorbide Dinitrate 10 Mg Tablet) 10 mg PO Q8H [facility]; Protocol Last Admin: 07/30/22 01:32 Dose: 10 mg Documented By: MELECIO Comments: 105/65 Linezolid (Linezolid 600 Mg Tablet) 600 mg PO Q12H [facility] Last Admin: 07/24/22 14:13 Dose: Not Given Documented By: NAYA Non-Admin Reason: Nausea Pantoprazole Sodium (Pantoprazole Sodium 40 Mg/10 Ml Vial) 40 mg IVPUSH BID@0630,1630 [facility] Last Admin: 07/30/22 05:41 Dose: 40 mg Documented By: MELECIO Pharmacy Consult (Consult Rx Perform Med Rec) 1 each MISCELLANE ONCE PRN PRN Reason: Consult order Sodium Chloride (0.9 % Sodium Chloride Flush 3 Ml Syringe) 3 ml IVFLUSH QSHIFT [facility] Last Admin: 07/30/22 01:16 Dose: 3 ml Documented By: FELIBERTO Labs CBC & Chem 7: 07/30/22 05:24 07/30/22 05:24 Labs: Laboratory Results - last 24 hr 07/26/22 07/28/22 07/29/22 09:03 16:47 11:52 MCV MCH MCHC RDW Plt Count MPV Absolute Nucleated RBC Nucleated RBC % (auto) Fibrinogen VBG pH VBG pCO2 VBG pO2 VBG HCO3 VBG O2 Saturation VBG Base Excess Anion Gap Estim Creat Clear Calc Estimated GFR POC Glucose 109 Random Glucose Calcium Magnesium Total Bilirubin AST ALT Alkaline Phosphatase B-Natriuretic Peptide Total Protein Albumin Random Vancomycin Heparin Dep Plt Ab OD 0.176 Hep-Induced Plt Ab Carolyn Negative DEWAYNE, Polyspecific NEGATIVE Positive DEWAYNE Work-up TNP 07/29/22 07/29/22 07/29/22 18:03 18:47 23:32 MCV MCH MCHC RDW Plt Count MPV Absolute Nucleated RBC Nucleated RBC % (auto) Fibrinogen VBG pH VBG pCO2 VBG pO2 VBG HCO3 VBG O2 Saturation VBG Base Excess Anion Gap Estim Creat Clear Calc Estimated GFR POC Glucose 105 116 H Random Glucose Calcium Magnesium Total Bilirubin AST ALT Alkaline Phosphatase B-Natriuretic Peptide Total Protein Albumin Random Vancomycin 14.5 L Heparin Dep Plt Ab OD Hep-Induced Plt Ab Carolyn DEWAYNE, Polyspecific Positive DEWAYNE Work-up 07/30/22 07/30/22 07/30/22 00:15 05:24 05:24 MCV 88.9 MCH 31.0 MCHC 34.8 RDW 17.6 H Plt Count 22 L MPV 12.1 Absolute Nucleated RBC 0.020 H Nucleated RBC % (auto) 0.2 Fibrinogen 551 VBG pH VBG pCO2 VBG pO2 VBG HCO3 VBG O2 Saturation VBG Base Excess Anion Gap 22 H Estim Creat Clear Calc 41.2 Estimated GFR 31 POC Glucose Random Glucose 116 H Calcium 8.0 L Magnesium 1.9 Total Bilirubin 2.2 H AST 62 H ALT 153 H Alkaline Phosphatase 131 H B-Natriuretic Peptide Total Protein 4.7 L Albumin 2.8 L Random Vancomycin Heparin Dep Plt Ab OD Hep-Induced Plt Ab Carolyn DEWAYNE, Polyspecific Positive DEWAYNE Work-up 07/30/22 07/30/22 05:24 05:32 MCV MCH MCHC RDW Plt Count MPV Absolute Nucleated RBC Nucleated RBC % (auto) Fibrinogen VBG pH 7.37 VBG pCO2 30 VBG pO2 45 VBG HCO3 18 L VBG O2 Saturation 75.0 VBG Base Excess -5.8 Anion Gap Estim Creat Clear Calc Estimated GFR POC Glucose Random Glucose Calcium Magnesium Total Bilirubin AST ALT Alkaline Phosphatase B-Natriuretic Peptide 3536 H Total Protein Albumin Random Vancomycin Heparin Dep Plt Ab OD Hep-Induced Plt Ab Carolyn DEWAYNE, Polyspecific Positive DEWAYNE Work-up Procedures Date of Service Date of Service: 07/30/22 Progress Note: A&P Assessment and plan (1) Anasarca: Status: Acute (2) Sacral osteomyelitis: Status: Acute (3) Stage IV pressure ulcer of sacral region: Status: Acute Plan Remains critically ill. Veraflo wound vac remains in place to sacral ulcer with good seal. Continue current settings: 20cc normal saline irrigation, 5 minute soak, 2h vac. If has leak, may need to go back to wet to dry dressings at site as it is very difficulty area to obtain seal and skin is weeping in addition. Plan vac sponge change on Monday if remains in place. Time Spent With Patient Time: Total time managing care of this patient today ____ minutes. Quality Stroke Does the patient have a stroke diagnosis?: No VTE Prior VTE?: No VTE Risk Level:: Medical - moderate - high VTE Device Contraindication: Treatment Not Indicated VTE Drug Contraindication: Treatment Not Indicated (contraindicated; UGI bleed)
[2022-07-30] MEDS: HYDROmorphone HCl 1 MG/ML SYRINGE IVPUSH (11:20)
--- NOTE | 2022-07-30 11:25 | P.PNCC_ITS ---
Subjective Subjective Date of Service: 07/30/22 Interval History: The patient was extubated yesterday.? See notes below. DNR/DNI orders written yesterday after family discussion.? See notes. Mr. Andujar was transferred to the ICU on 07/24/2022 after PEA arrest on the floor. The patient is a 67-year-old gentleman with underlying diabetes mellitus, CKD and ischemic heart failure, s/p CABG about 10 years ago, followed by ICD placement.? Over last year or so, EF was reportedly about 40%.? His CKD was progressing and he had discussions with his missing persons investigator ([facility]) about ultimately needing HD.? 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 The diuretics no longer worked. He was admitted to [facility] for edema management in March.? Everything went downhill from there, and he was started on HD.? At some point he developed a decubitus ulcer.? He spent approximately 3 weeks at [facility] and was then transferred to [facility] for rehab.? After 3 weeks at [facility], he was admitted [place] [facility] for management of sepsis from the Decubitus ulcer.? Then went back to [facility] and since then, been back at [facility] [place] [facility] for further management of sepsis, the decubitus, and renal failure, including two surgeries for the decubitus, including a diverting colostomy done approximately about 8 weeks ago at [facility]. Currently PMHx additionally includes ESRD on hemodialysis, protein calorie malnutrition, coronary artery disease status post CABG, ischemic cardiomyopathy with EF of 40-45%, status post AICD, PAfib, osteomyelitis of stage IV sacral decubitus ulcer, discoid lupus, and diverting colostomy. On 07/11/2022, he was [place] [facility] [place] developing chest pain. There was no evid ence of ACS. He was admitted to the medical floor for stage IV decubitus ulcer/osteomyelitis meeting sepsis criteria and ESRD, and given empiric abx.? His hospital course since then had been relatively stable, and his discharge was being planned.? He'd had a chronic leukocytosis over the last few months secondary to the osteomyelitis; his WBC remained elevated despite completing a prior course of IV antibiotics.? Most recently Dr. Stein recommended IV meropenem and PO zyvox for 6 weeks. He'd been followed by surgery s/p debridement; preventative measures in place with frequent turning, and appropriate bed. TPN was initiated to promote wound healing.? He was continued on his T-Th-Mon HD schedule. Due to vomiting, he had an xray that showed dilated stomach but no evidence of bowel obstruction. That clinically seems to have resolved. He had intermittent tachycardia and paroxysmal AFIB controlled with Metoprolol 25mg tid. On Jul 24, the bicarb level on his routine morning labs was low.? A lactate level was checked and came back very high.? While the patient was being evaluated he went into a PEA arrest.? CPR and ACLS administered.? He had ROSC after four rounds of epinephrine.? No shocks were required.? The duration of CPR was approximately 16 minutes.? He was intubated during the CPR and transferred to intensive care unit. He did show signs of awakening after CPR and required sedation.? NGT placement after tx to ICU showed blood.? Hb was 3.5 (c/w 8.1 one week prior).? He was vol resusc with blood and crystalloid.? Thru that nite he required Levophed and a bicarb drip and his lactates remained elevated in the 15 range. The following day (Jul 25), he had persistent metabolic and lactic acidoses, which began to improve in the evening.? His levophed requirement came down slowly and after propofol was turned off he had consistent eye opening to command.? FiO2 was down to 30%. Since then, his MS and hemodynamics have improved slowly but steadily.? We started him on dobutamine 25ug and his BP went up, Levophed requirement went down.? Dr. Vidales debrided the sacral wound at the bedside.? There was not much to debride, it was mostly bone.? No gross infection, no odor.? We put a Kaofeed tube down and started tube feeds.? We started him on amiodarone for heart rate control of AFib with RVR, and some hours later he converted to sinus tachycardia.? We tried slowing his heart rate with low dose esmolol, but his BP dropped precipitously, so that was abandoned.? Dr. Vidales put the wound VAC in his sacral wound on Jul 28. The patient continued to lose Hb and Mon this week, so I dropped a [place] sump .? There was no blood or coffee grounds in the yellow gastric aspirate.? Sent him to abdominal CT, there was no evidence of intraabdominal hemorrhage.? I asked Dr. Petersen to see him in regards to the ongoing blood loss and his thrombocytopenia.? We?ve sent labs off.? For now, plan is transfuse as needed. He came off Levophed on 07/28.? We dropped his dobutamine dose to 2ug that night, which had no effect on his HR or BP,? Hemodynamics were steady.? On re-echo yesterday, the LV looks noticeably smaller (qualitatively) and wall motion was slightly but noticeably improved compared to the echo on 07/26.? Septum and apex still akinetic, but free wall wsa improved.? Overall EF no better than 20%.? MV had 1-2+ MR compared to only trace MR initially.? Still had 4+ TR, but the CWD jet measured only about 2.4 m/sec, compared to 2.7 on the echo done 07/25.? An EKG showed return of R waves in V2 and V3 compared to the EKG on Jul 25.? And at onset of HD, BP has been increasingly less labile. The patient was extubated yesterday after noon to HFNC 40L/32%.? No resp problems since then, altho last night his breathing was a bit raspy. Had no problems overnight last night.? We cut his dobutamine to 1ug.? This morning no problem at all with HD.? We d/c?d the dobutamine after HD, he hasn?t had any problem.? His voice is very soft, I can barely get him to say anything.? Trachea is clear today.? Affect is very flat.? I?m concerned that he?s very depressed/disheartened.? We?ll start him on Zoloft. I spoke with family at length this afternoon.? They wanted to know what stopping treatment (i.e. comfort measures) would look like.? We talked about that and his general condition and prognosis.? They decided against transfer to [facility]. Just before noon today, the patient converted back to Afib.? HR 90, BP .? Still on the amiodarone drip.? BP dropped to 88/46, but came back up to 104/50.? Restarted Levophed very low dose.? Breathing easy on 1L NC, Sat 95%.? CVBG this morning 7.37/30/-5.? Afebrile.? Chest is CTA.? Irregular rate and rhythm, I heard no murmur or gallops.? The abdomen is nondistended.? The ostomy bag has brown thick liquid stool in it.? The prolapsed loop of the colostomy is smaller than a few days ago.? He still has gross anasarca, at least 2-3+, but every day it?s getting less. LABORATORY DATA:? Below.? Notably, Hgb is 9.3 this morning. ?Plat count is still only 22K.? D-dimer 1297, fibrinogen is 551. ?Trop down to 1810 and BNP is down to 3500. ?Alb 2.8 (after albumin infusion). EGD 07/25:? Erosive esophagitis; multiple chronic appearing 4-5 mm ulcers in the duodenal bulb; a 2 cm non-bleeding ulcer with yellow exudate at the base of the duodenal bulb with a visible vessel - one hemoclip was applied.? No blood or active bleeding seen in the UGI tract during EGD and no biopsies were obtained. IMPRESSION: 1. Underlying systolic ischemic CMOP. 2. S/p Cardiac arrest -- PEA arrest, 2? UGI bleed.? Likely never had full cessation of spont circulation, judging by his rapid return of mental status after 16 min of CPR. 3. Acute NSTEMI.? Based on the troponin bump, the EKG changes (loss of precordial R waves), and the marked loss of ventricular function on echo.? Started on Lipitor 80mg.? Tried beta willow but he was too unstable.? No anticoagulation or ASA bec of GI bleed. 4. Cardiogenic shock w shock liver.? Improving, based on all the numbers -- improving BP, Levophed was off, dobutamine is off, improving ventricular size and fxn on echo, lactate resolved, INR is improved.? Added Isordil. 5. Underlying ESRD on HD with refractory anasarca.? Daily dialysis this week. 6. Acute Respiratory Failure. ?Intubated during the CPR. ?Extubated without difficulty yesterday.? His mechanics are fine.? The only question is whether or not he can keep his airway clear. 7. Chronic large stage 4 sacral decubitus with chronic osteomyelitis, s/p diverting sigmoid loop colostomy. ?Woundvac is on. 8. S/P UGI bleed with hemorrhagic shock.? Continue high dose PPI.? Transfused to Hgb > 9. ?On Procrit. 9. Anoxic encephalopathy.? Almost fully resolved. 10. Coagulopathy.? 2? hepatic failure.? Vit K 50 mg total given.? INR improved as his liver improved w resolution of cardiogenic shock. 11. AFib w RVR.? Cardioverted to SR w amiodarone.? But converted back to Afib today.? Gave him another loading dose of amiodarone.? At least now his HR is controlled. 12. ID: Continue meropenam and vanco for osteomyelitis, per ID recs. 13. Diabetes mellitus. SS insulin.? Started him on Lantus, but he had a number of low POCs, so the Lantus was d/c?d.? Continue just the SS insulin. 14. Anemia with acute Hb loss.? Source is undermined.? W/U (including hemolysis) in progress. 15. Thrombocytopenia.? Seems like consumption.? W/U in progress.? Heparin Ab negative.? No DVT on duplex scan yesterday. 16. Nutrition.? Advancing tube feeds.? On goal rate Nepro.? Ostomy is working great. Spoke with HH again and let them know he would not be transferring there. Spoke with family for over an hour today.? He will continue with DNR/DNI status.? They?re considering comfort measures. Prognosis is very guarded. Critical Care time (including mult visits to bedside, mult family conversations): ?90+ min. Critical Care Time (minutes): 90 Physical Exam Vital Signs: Vital Signs: Last Vital Signs Temp 98.9 F 07/30/22 07:00 Pulse 114 H 07/30/22 10:00 Resp 16 07/30/22 10:00 BP 108/59 L 07/30/22 10:00 Pulse Ox 100 07/30/22 10:00 O2 Del Method 07/30/22 10:00 O2 Flow Rate 40 07/30/22 05:51 FiO2 35 07/30/22 10:00 BMI result Body Mass Index 27.3 Objective Data Labs CBC & Chem 7: 07/30/22 05:24 07/30/22 05:24 Labs: Laboratory Results - last 24 hr 07/26/22 07/29/22 07/29/22 09:03 11:52 18:03 WBC RBC Hgb Hct MCV MCH MCHC RDW Plt Count MPV Absolute Nucleated RBC Nucleated RBC % (auto) Fibrinogen VBG pH VBG pCO2 VBG pO2 VBG HCO3 VBG O2 Saturation VBG Base Excess Sodium Potassium Chloride Carbon Dioxide Anion Gap BUN Creatinine Estim Creat Clear Calc Estimated GFR POC Glucose 109 105 Random Glucose Calcium Magnesium Total Bilirubin AST ALT Alkaline Phosphatase B-Natriuretic Peptide Total Protein Albumin Random Vancomycin Heparin Dep Plt Ab OD 0.176 Hep-Induced Plt Ab Carolyn Negative 07/29/22 07/29/22 07/30/22 18:47 23:32 00:15 WBC RBC Hgb Hct MCV MCH MCHC RDW Plt Count MPV Absolute Nucleated RBC Nucleated RBC % (auto) Fibrinogen 551 VBG pH VBG pCO2 VBG pO2 VBG HCO3 VBG O2 Saturation VBG Base Excess Sodium Potassium Chloride Carbon Dioxide Anion Gap BUN Creatinine Estim Creat Clear Calc Estimated GFR POC Glucose 116 H Random Glucose Calcium Magnesium Total Bilirubin AST ALT Alkaline Phosphatase B-Natriuretic Peptide Total Protein Albumin Random Vancomycin 14.5 L Heparin Dep Plt Ab OD Hep-Induced Plt Ab Carolyn 07/30/22 07/30/22 07/30/22 05:24 05:24 05:24 WBC 9.0 RBC 2.97 L Hgb 9.2 L Hct 26.4 L MCV 88.9 MCH 31.0 MCHC 34.8 RDW 17.6 H Plt Count 22 L MPV 12.1 Absolute Nucleated RBC 0.020 H Nucleated RBC % (auto) 0.2 Fibrinogen VBG pH VBG pCO2 VBG pO2 VBG HCO3 VBG O2 Saturation VBG Base Excess Sodium 134 L Potassium 3.7 Chloride 99 Carbon Dioxide 17 L Anion Gap 22 H BUN 48 H Creatinine 2.16 H Estim Creat Clear Calc 41.2 Estimated GFR 31 POC Glucose Random Glucose 116 H Calcium 8.0 L Magnesium 1.9 Total Bilirubin 2.2 H AST 62 H ALT 153 H Alkaline Phosphatase 131 H B-Natriuretic Peptide 3536 H Total Protein 4.7 L Albumin 2.8 L Random Vancomycin Heparin Dep Plt Ab OD Hep-Induced Plt Ab Carolyn 07/30/22 05:32 WBC RBC Hgb Hct MCV MCH MCHC RDW Plt Count MPV Absolute Nucleated RBC Nucleated RBC % (auto) Fibrinogen VBG pH 7.37 VBG pCO2 30 VBG pO2 45 VBG HCO3 18 L VBG O2 Saturation 75.0 VBG Base Excess -5.8 Sodium Potassium Chloride Carbon Dioxide Anion Gap BUN Creatinine Estim Creat Clear Calc Estimated GFR POC Glucose Random Glucose Calcium Magnesium Total Bilirubin AST ALT Alkaline Phosphatase B-Natriuretic Peptide Total Protein Albumin Random Vancomycin Heparin Dep Plt Ab OD Hep-Induced Plt Ab Carolyn Microbiology Microbiology Results: Microbiology 07/11/22 06:35 Blood - Arterial Line Blood Culture - Final No growth after 5 days. 07/11/22 06:35 Blood - Arterial Line Blood Culture - Final No growth after 5 days. Quality Stroke Does the patient have a stroke diagnosis?: No VTE Prior VTE?: No VTE Risk Level:: Medical - moderate - high VTE Device Contraindication: Treatment Not Indicated VTE Drug Contraindication: Treatment Not Indicated (contraindicated; UGI bleed) Critical Care Time Critical Care Time (minutes): 90
--- NOTE | 2022-07-30 11:26 | PM.PNNEP ---
Subjective Subjective Date of Service: 07/30/22 Interval history: Pt seen on dialysis today; successfully removing vol without significant hypotension. Has permcath access. BP is better today complains of back pain Extubated and on high flow nasal cannula.? I Physical Exam Vital Signs: Vital Signs: Last Vital Signs Temp 98.9 F 07/30/22 07:00 Pulse 114 H 07/30/22 10:00 Resp 16 07/30/22 10:00 BP 108/59 L 07/30/22 10:00 Pulse Ox 100 07/30/22 10:00 O2 Del Method 07/30/22 10:00 O2 Flow Rate 40 07/30/22 05:51 FiO2 35 07/30/22 10:00 BMI result Body Mass Index 27.3 Const: Other: Cachectic, weak, but alert HEENT: Other: Benign Chest: Other: Cachexia, muscle wasting Resp: Other: Better aeration Wearing high flow oxygen Rales at bases Cardio: Other: HSM apex S3 Jugular venous distension: JVD Rate: tachycardic GI: Other: Normal bowel sounds, nondistended abdomen Extrem: Other: Edema improving, remains 2 plus Objective Data Labs CBC & Chem 7: 07/30/22 05:24 07/30/22 05:24 Labs: Laboratory Results - last 24 hr 07/26/22 07/29/22 07/29/22 09:03 11:52 18:03 WBC RBC Hgb Hct MCV MCH MCHC RDW Plt Count MPV Absolute Nucleated RBC Nucleated RBC % (auto) Fibrinogen VBG pH VBG pCO2 VBG pO2 VBG HCO3 VBG O2 Saturation VBG Base Excess Sodium Potassium Chloride Carbon Dioxide Anion Gap BUN Creatinine Estim Creat Clear Calc Estimated GFR POC Glucose 109 105 Random Glucose Calcium Magnesium Total Bilirubin AST ALT Alkaline Phosphatase B-Natriuretic Peptide Total Protein Albumin Random Vancomycin Heparin Dep Plt Ab OD 0.176 Hep-Induced Plt Ab Carolyn Negative 07/29/22 07/29/22 07/30/22 18:47 23:32 00:15 WBC RBC Hgb Hct MCV MCH MCHC RDW Plt Count MPV Absolute Nucleated RBC Nucleated RBC % (auto) Fibrinogen 551 VBG pH VBG pCO2 VBG pO2 VBG HCO3 VBG O2 Saturation VBG Base Excess Sodium Potassium Chloride Carbon Dioxide Anion Gap BUN Creatinine Estim Creat Clear Calc Estimated GFR POC Glucose 116 H Random Glucose Calcium Magnesium Total Bilirubin AST ALT Alkaline Phosphatase B-Natriuretic Peptide Total Protein Albumin Random Vancomycin 14.5 L Heparin Dep Plt Ab OD Hep-Induced Plt Ab Carolyn 07/30/22 07/30/22 07/30/22 05:24 05:24 05:24 WBC 9.0 RBC 2.97 L Hgb 9.2 L Hct 26.4 L MCV 88.9 MCH 31.0 MCHC 34.8 RDW 17.6 H Plt Count 22 L MPV 12.1 Absolute Nucleated RBC 0.020 H Nucleated RBC % (auto) 0.2 Fibrinogen VBG pH VBG pCO2 VBG pO2 VBG HCO3 VBG O2 Saturation VBG Base Excess Sodium 134 L Potassium 3.7 Chloride 99 Carbon Dioxide 17 L Anion Gap 22 H BUN 48 H Creatinine 2.16 H Estim Creat Clear Calc 41.2 Estimated GFR 31 POC Glucose Random Glucose 116 H Calcium 8.0 L Magnesium 1.9 Total Bilirubin 2.2 H AST 62 H ALT 153 H Alkaline Phosphatase 131 H B-Natriuretic Peptide 3536 H Total Protein 4.7 L Albumin 2.8 L Random Vancomycin Heparin Dep Plt Ab OD Hep-Induced Plt Ab Carolyn 07/30/22 05:32 WBC RBC Hgb Hct MCV MCH MCHC RDW Plt Count MPV Absolute Nucleated RBC Nucleated RBC % (auto) Fibrinogen VBG pH 7.37 VBG pCO2 30 VBG pO2 45 VBG HCO3 18 L VBG O2 Saturation 75.0 VBG Base Excess -5.8 Sodium Potassium Chloride Carbon Dioxide Anion Gap BUN Creatinine Estim Creat Clear Calc Estimated GFR POC Glucose Random Glucose Calcium Magnesium Total Bilirubin AST ALT Alkaline Phosphatase B-Natriuretic Peptide Total Protein Albumin Random Vancomycin Heparin Dep Plt Ab OD Hep-Induced Plt Ab Carolyn Microbiology Microbiology Results: Microbiology 07/11/22 06:35 Blood - Arterial Line Blood Culture - Final No growth after 5 days. 07/11/22 06:35 Blood - Arterial Line Blood Culture - Final No growth after 5 days. 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 Hypervolemic Plan is dialysis today Pt has expressed interest in possibly stopping dialysis and moving to comfort care Family discussion to be held today Will touch base with Dr. Rainey later today Time Spent With Patient Time: Total time managing care of this patient today ____ minutes. Progress Note: Quality Stroke Does the patient have a stroke diagnosis?: No
[2022-07-30 12:22] LABS: Glucose, Whole Blood 100 mg/dL (60-115)
[2022-07-30] MEDS: Atorvastatin Calcium 80 MG TABLET G-TUBE (13:28)
[2022-07-30 14:18] LABS: Haptoglobin 88 mg/dL (43-212)
[2022-07-30 16:31] LABS: Vancomycin Random 11.6 mcg/mL (15-20)
--- NOTE | 2022-07-30 16:43 | HE.PHANOTE ---
RE JACK TROUGH WAS 11.6, WILL GIVE 500MG X1 AND GET LEVEL AFTER NEXT DIALYSIS SESSION DELMI
[2022-07-30] MEDS: Amiodarone HCL 900 MG in 0.9 % Sodium Chloride 500 ML 17.27 MG IVCONT (16:52)
[2022-07-30] MEDS: vancomycin HCL 500 MG in 0.9 % Sodium Chloride 100 ML 110 MG IV (17:17)
[2022-07-30 18:09] LABS: Glucose, Whole Blood 113 mg/dL (60-115)
[2022-07-30] MEDS: Amiodarone/Dextrose 150 MG/100 ML PLAST..BAG 200 MG IV (20:13)
[2022-07-30] MEDS: Sertraline HCL 25 MG TABLET G-TUBE (21:34)
[2022-07-30] MEDS: Chlorhexidine Gluc Oral Rinse 15 ML MOUTHWASH BUCCAL (21:34)
[2022-07-31] VITALS (19 sets, daily range): BP systolic 91–124; BP diastolic 43–60; PULSE 67–92; RESP 8–22; TEMP 36.1–36.6; O2SAT 84–99; BMI 25.4
[2022-07-31] MEDS: 0.9 % Sodium Chloride Flush 3 ML SYRINGE IVFLUSH ×3 (00:01→15:36)
[2022-07-31 00:16] LABS: Glucose, Whole Blood 124 mg/dL (60-115)
[2022-07-31] MEDS: HYDROmorphone HCl 1 MG/ML SYRINGE IVPUSH ×4 (02:10→19:08)
[2022-07-31] MEDS: Isosorbide Dinitrate 10 MG TABLET PO ×2 (05:07→12:49)
[2022-07-31 05:33] LABS: VBG Base Excess -13.6 mmol/L; VBG HCO3 12 mmol/L (22-26); VBG pCO2 29 mmHg; VBG pH 7.22 (7.32-7.43); VBG pO2 49 mmHg
[2022-07-31 05:36] LABS: Hematocrit 27.9 % (42.0-52.0); Hemoglobin 9.1 g/dl (14.0-18.0); Mean Corpuscular HGB Conc 32.6 g/dl (31.0-36.0); Mean Corpuscular Hemoglobin 30.5 pg (27.0-33.0); Mean Corpuscular Volume 93.6 fL (80.0-98.0); Mean Platelet Volume 12.5 fL (9.4-12.4); NRBC Pct Auto 0.5 /100WBC (0.0-0.2); Red Blood Count 2.98 X10*6/uL (4.60-5.80); Red Cell Distribution Width 18.5 % (11.0-16.0); Venous Blood Gas Refer to POC result; White Blood Count 11.1 X10*3/uL (4.8-10.8)
[2022-07-31 05:41] LABS: Platelet Count 68 X10*3/uL (160-400)
[2022-07-31 05:55] LABS: Lactic Acid 1.6 mmol/L (0.5-2.0)
[2022-07-31 06:07] LABS: B Type Natriuretic Peptide 4300 pg/mL (<100)
[2022-07-31 06:09] LABS: Albumin Level 3.2 g/dL (3.5-5.0); Anion Gap 26 (12-20); Calcium 7.9 mg/dL (8.4-10.2); Carbon Dioxide 13 mmol/L (22-29); Chloride 98 mmol/L (96-108); Glucose Random 141 mg/dL (60-115); Potassium 3.6 mmol/L (3.3-5.1); Sodium 133 mmol/L (135-145); Total Protein 5.2 g/dL (6.5-8.0)
[2022-07-31 06:15] LABS: Glucose, Whole Blood 131 mg/dL (60-115)
[2022-07-31 06:15] LABS: Glucose, Whole Blood 132 mg/dL (60-115)
[2022-07-31 06:22] LABS: Alanine Aminotransferase 113 U/L (0-40); Alkaline Phosphatase 169 U/L (39-117); Aspartate Amino Transferase 56 U/L (5-37); Bilirubin Total 2.6 mg/dL (0.0-1.0); Blood Urea Nitrogen 33 mg/dL (9-16); Creatinine Clr Calc Pharmacy 48.6; Estimated Glomerular Filt Rate 37; Phosphorus 3.3 mg/dL (2.7-4.5)
--- NOTE | 2022-07-31 06:22 | PC.NURSE ---
SE [id number]: PT VERY WEAK. RESPONSIVE TO VERBAL STIMULI, SPEAKS IN A LOW SOFT SPOKEN VOICE. TRIES TO FOLLOW COMMANDS AT TIMES AND OTHER TIMES DOESN'T REGARD THE REQUEST. NO RESP DIFFICULTIES ON NASAL CANULLA AT 1L. O2 SAT MID 90'S. MONITOR NOTED TO BE AFIB. DR CHEEK NOTIFIED OF RHYTHM CHANGE AND AMIODARONE LOADING DOSE GIVEN. AMIO GTT CONTINUES AT 0.5 MG/MIN. RATE IS CONTROLLED IN THE 70'S-80'S. BP STABLE ON LEVOPHED AT 0.03 MCG/KG/MIN. COMPLETE BEDBATH GIVEN. BILAT ARMS AND LEGS ARE WRAPPED AND SLIGHTLY WEEPING ESPECIALLY THE RIGHT LEG. WOUND VAC IN PLACE TO SACRAL WOUND AT 125 MM HG. NO URINE OUTPUT. 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
[2022-07-31] MEDS: Atorvastatin Calcium 80 MG TABLET G-TUBE (08:15)
[2022-07-31] MEDS: Sodium Bicarbonate 8.4% 50 MEQ/50 ML VIAL 100 MEQ IVPUSH (08:15)
[2022-07-31] MEDS: Sertraline HCL 25 MG TABLET G-TUBE (08:16)
[2022-07-31] MEDS: Chlorhexidine Gluc Oral Rinse 15 ML MOUTHWASH BUCCAL ×2 (08:16→15:36)
[2022-07-31 11:19] LABS: Vancomycin Random 13.8 mcg/mL (15-20)
[2022-07-31 11:52] LABS: Glucose, Whole Blood 165 mg/dL (60-115)
[2022-07-31] MEDS: vancomycin HCL 500 MG in 0.9 % Sodium Chloride 100 ML 110 MG IV (12:48)
[2022-07-31] MEDS: Insulin Lispro 100 UNIT/ML 3 ML VIAL SUBCUT (12:48)
--- NOTE | 2022-07-31 13:26 | PM.PNNEP ---
Subjective Subjective Date of Service: 07/31/22 Interval history: Pt had UF this morning and looked very weak and worn out VBG shows acidosis Has ostomy Bicarb is 13 with AG 11 Physical Exam Vital Signs: Vital Signs: Last Vital Signs Temp 96.9 F 07/31/22 08:00 Pulse 86 07/31/22 13:00 Resp 14 07/31/22 13:00 BP 100/45 L 07/31/22 13:00 Pulse Ox 96 07/31/22 13:00 O2 Del Method 07/31/22 13:00 O2 Flow Rate 3 07/31/22 13:00 FiO2 35 07/30/22 19:00 BMI result Body Mass Index 25.4 Const: Other: Frail elderly man Secretions/gurgling Resp: Auscultation: crackles Extrem: Other: Edema 2 plus LEs Objective Data Labs CBC & Chem 7: 07/31/22 05:15 07/31/22 05:15 Labs: Laboratory Results - last 24 hr 07/28/22 07/30/22 07/30/22 16:47 15:57 18:05 WBC RBC Hgb Hct MCV MCH MCHC RDW Plt Count MPV Absolute Nucleated RBC Nucleated RBC % (auto) Haptoglobin 88 VBG pH VBG pCO2 VBG pO2 VBG HCO3 VBG O2 Saturation VBG Base Excess Sodium Potassium Chloride Carbon Dioxide Anion Gap BUN Creatinine Estim Creat Clear Calc Estimated GFR POC Glucose 113 Random Glucose Lactic Acid Calcium Phosphorus Magnesium Total Bilirubin AST ALT Alkaline Phosphatase B-Natriuretic Peptide Total Protein Albumin Random Vancomycin 11.6 L 07/30/22 07/31/22 07/31/22 23:47 01:32 05:15 WBC 11.1 H RBC 2.98 L Hgb 9.1 L Hct 27.9 L MCV 93.6 MCH 30.5 MCHC 32.6 RDW 18.5 H Plt Count 68 L D MPV 12.5 H Absolute Nucleated RBC 0.050 H Nucleated RBC % (auto) 0.5 H Haptoglobin VBG pH VBG pCO2 VBG pO2 VBG HCO3 VBG O2 Saturation VBG Base Excess Sodium Potassium Chloride Carbon Dioxide Anion Gap BUN Creatinine Estim Creat Clear Calc Estimated GFR POC Glucose 124 H 132 H Random Glucose Lactic Acid Calcium Phosphorus Magnesium Total Bilirubin AST ALT Alkaline Phosphatase B-Natriuretic Peptide Total Protein Albumin Random Vancomycin 07/31/22 07/31/22 07/31/22 05:15 05:15 05:15 WBC RBC Hgb Hct MCV MCH MCHC RDW Plt Count MPV Absolute Nucleated RBC Nucleated RBC % (auto) Haptoglobin VBG pH VBG pCO2 VBG pO2 VBG HCO3 VBG O2 Saturation VBG Base Excess Sodium 133 L Potassium 3.6 Chloride 98 Carbon Dioxide 13 L Anion Gap 26 H BUN 33 H Creatinine 1.83 H Estim Creat Clear Calc 48.6 Estimated GFR 37 POC Glucose Random Glucose 141 H Lactic Acid 1.6 Calcium 7.9 L Phosphorus 3.3 Magnesium 2.0 Total Bilirubin 2.6 H AST 56 H ALT 113 H Alkaline Phosphatase 169 H B-Natriuretic Peptide 4300 H Total Protein 5.2 L Albumin 3.2 L Random Vancomycin 07/31/22 07/31/22 07/31/22 05:27 06:10 11:01 WBC RBC Hgb Hct MCV MCH MCHC RDW Plt Count MPV Absolute Nucleated RBC Nucleated RBC % (auto) Haptoglobin VBG pH 7.22 L VBG pCO2 29 VBG pO2 49 VBG HCO3 12 L VBG O2 Saturation 76.0 VBG Base Excess -13.6 Sodium Potassium Chloride Carbon Dioxide Anion Gap BUN Creatinine Estim Creat Clear Calc Estimated GFR POC Glucose 131 H Random Glucose Lactic Acid Calcium Phosphorus Magnesium Total Bilirubin AST ALT Alkaline Phosphatase B-Natriuretic Peptide Total Protein Albumin Random Vancomycin 13.8 L 07/31/22 11:48 WBC RBC Hgb Hct MCV MCH MCHC RDW Plt Count MPV Absolute Nucleated RBC Nucleated RBC % (auto) Haptoglobin VBG pH VBG pCO2 VBG pO2 VBG HCO3 VBG O2 Saturation VBG Base Excess Sodium Potassium Chloride Carbon Dioxide Anion Gap BUN Creatinine Estim Creat Clear Calc Estimated GFR POC Glucose 165 H Random Glucose Lactic Acid Calcium Phosphorus Magnesium Total Bilirubin AST ALT Alkaline Phosphatase B-Natriuretic Peptide Total Protein Albumin Random Vancomycin Microbiology Microbiology Results: Microbiology 07/11/22 06:35 Blood - Arterial Line Blood Culture - Final No growth after 5 days. 07/11/22 06:35 Blood - Arterial Line Blood Culture - Final No growth after 5 days. Procedures Date of Service Date of Service: 07/31/22 Assessment & Plan Assessment and plan (1) ESRD (end stage renal disease): Status: Acute (2) Acute respiratory failure: Status: Acute (3) Chronic systolic heart failure: Status: Acute (4) Stage IV pressure ulcer of sacral region: Status: Acute (5) Metabolic acidosis: Status: Acute Plan Pt did not tolerate dialysis well this am but still appears hypervolemic Had UF today Now labs show nonAG metabolic acidosis Has ostomy: ?bicarb losses via ostomy Recommend: Slow infusioin of D5W with 3 amps bicarb at 75/hr Dialysis in am Time Spent With Patient Time: Total time managing care of this patient today ____ minutes. Progress Note: Quality Stroke Does the patient have a stroke diagnosis?: No
[2022-07-31] MEDS: Sodium Bicarbonate 8.4% 150 MEQ in Dextrose 5 % 850 ML 50 MEQ IV (15:35)
[2022-07-31] MEDS: Sodium Bicarbonate 650 MG TABLET G-TUBE (15:36)
--- NOTE | 2022-07-31 16:21 | PM.CCPN ---
Subjective Subjective Date of Service: 07/31/22 Interval History: Mr. Andujar was transferred to the ICU on 07/24/2022 after PEA arrest on the floor. The patient is a 67-year-old gentleman with underlying diabetes mellitus, CKD and ischemic heart failure, s/p CABG about 10 years ago, followed by ICD placement.? Over last year or so, EF was reportedly about 40%.? 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 According to his family, the patient was in good and fairly active general health, living on his own, [place] [facility] [place] [employer] [place], even playing golf, this past summer when he developed what sounds like progressive anasarca, with his legs ballooning to the size of logs and he could barely walk.? The diuretics no longer worked. He was admitted to [facility] for edema management in March.? Everything went downhill from there, and he was started on HD.? At some point he developed a decubitus ulcer.? He spent approximately 3 weeks at [facility] and was then transferred to [facility] for rehab.? After 3 weeks at [facility], he was admitted to [facility] for management of sepsis from the Decubitus ulcer.? Then went back to [facility] and since then, been back at [facility] and [facility] for further management of sepsis, the decubitus, and renal failure, including two surgeries for the decubitus, including a diverting colostomy done approximately about 8 weeks ago at [facility]. Currently PMHx additionally includes ESRD on hemodialysis, protein calorie malnutrition, coronary artery disease status post CABG, ischemic cardiomyopathy with EF of 40-45%, status post AICD, PAfib, osteomyelitis of stage IV sacral decubitus ulcer, discoid lupus, and diverting colostomy. On 07/11/2022, he was BIBA to [facility] after developing chest pain. There was no evidence of ACS. He was admitted to the medical floor for stage IV decubitus ulcer/osteomyelitis meeting sepsis criteria and ESRD, and given empiric abx.? His hospital course since then had been relatively stable, and his discharge was being planned.? He'd had a chronic leukocytosis over the last few months secondary to the osteomyelitis; his WBC remained elevated despite completing a prior course of IV antibiotics.? Most recently Dr. Stein recommended IV meropenem and PO zyvox for 6 weeks. He'd been followed by surgery s/p debridement; preventative measures in place with frequent turning, and appropriate bed. TPN was initiated to promote wound healing.? He was continued on his T-Th-Sat HD schedule. Due to vomiting, he had an xray that showed dilated stomach but no evidence of bowel obstruction. That clinically seems to have resolved. He had intermittent tachycardia and paroxysmal AFIB controlled with Metoprolol 25mg tid. On Jul 24, the bicarb level on his routine morning labs was low.? A lactate level was checked and came back very high.? While the patient was being evaluated he went into a PEA arrest.? CPR and ACLS administered.? He had ROSC after four rounds of epinephrine.? No shocks were required.? The duration of CPR was approximately 16 minutes.? He was intubated during the CPR and transferred to intensive care unit. He did show signs of awakening after CPR and required sedation.? NGT placement after tx to ICU showed blood.? Hb was 3.5 (c/w 8.1 one week prior).? He was vol resusc with blood and crystalloid.? Thru that nite he required Levophed and a bicarb drip and his lactates remained elevated in the 15 range. The following day (Jul 25), he had persistent metabolic and lactic acidoses, which began to improve in the evening.? His levophed requirement came down slowly and after propofol was turned off he had consistent eye opening to command.? FiO2 was down to 30%. EGD 07/25:? Erosive esophagitis; multiple chronic appearing 4-5 mm ulcers in the duodenal bulb; a 2 cm non-bleeding ulcer with yellow exudate at the base of the duodenal bulb with a visible vessel - one hemoclip was applied.? No blood or active bleeding seen in the UGI tract during EGD and no biopsies were obtained. Since then, his MS and hemodynamics have improved slowly but steadily.? We started him on dobutamine 25ug and his BP went up, Levophed requirement went down.? Dr. Vidales debrided the sacral wound at the bedside.? There was not much to debride, it was mostly bone.? No gross infection, no odor.? We put a Kaofeed tube down and started tube feeds.? We started him on amiodarone for heart rate control of AFib with RVR, and some hours later he converted to sinus tachycardia.? We tried slowing his heart rate with low dose esmolol, but his BP dropped precipitously, so that was abandoned.? Dr. Vidales put the wound VAC in his sacral wound on Jul 28. The patient continued to lose Hb and Mon this week, so I dropped a [place] sump .? There was no blood or coffee grounds in the yellow gastric aspirate.? Sent him to abdominal CT, there was no evidence of intraabdominal hemorrhage.? I asked Dr. Petersen to see him in regards to the ongoing blood loss and his thrombocytopenia.? We?ve sent labs off.? For now, plan is transfuse as needed. He came off Levophed on 07/28.? We dropped his dobutamine dose to 2ug that night, which had no effect on his HR or BP,? Hemodynamics were steady.? On re-echo Jul 29, the LV looked noticeably smaller (qualitatively) and wall motion was slightly but noticeably improved compared to the echo on 07/26.? Septum and apex still akinetic, but free wall was improved.? Overall EF no better than 20%.? MV had 1-2+ MR compared to only trace MR initially.? Still had 4+ TR.? And during HD, BP has been increasingly less labile. The patient was extubated on Jul 29 without incident.? His breathing was a bit raspy at the beginning, but cleared up yesterday. ?His dobutamine was subsequently tapered off.? Family decided against transfer to [facility]. Yesterday, the patient converted back to Afib.? BP dropped a little and he was restarted on very low dose Levophed.? On exam this morning after dialysis, he looked strikingly washed out.? Hardly able to talk.? WOB up a little, but trachea was clear.? Sat 95% on 3L NC; Sat 88% on room air.? Had an extended d/w family about where to go from here, what comfort measures would look like. Repeat echo:? LV volume looks maybe even a little smaller than last echo.? Wall motion looks slightly better.? Septum and apex still akinetic.? EF 15-20% max.? Trace MR, 4+ TR.? TV CWD measures about 3.0 m/sec.? IVC measures 2.5cm w minimal insp collapse. This afternoon, he looks worse.? Not even moving his lips.? Looks like he can?t even swallow.? Eyes are open, barely tracking.? Gurgling breathing.? He?s dying.? Even family is telling me that he looks like he?s dying.? RR about 24 on 3L NC, SpO2 94%.? HR 86, afib.? Still on the Amiod drip.? BP 121/52 on Levophed 0.05ug.? Chest is probably clear.? Abdomen benign with semiliquid stool in ostomy.? Still at least 2+ anasarca. LABORATORY DATA:? Below.? Notably, Hgb is stable, plat count up to 68K.? Tbili up to 2.6.? BNP up to 4300.? Lactic acid 1.6. IMPRESSION: 1. Underlying systolic ischemic CMOP. 2. S/p Cardiac arrest -- PEA arrest, 2? UGI bleed.? Likely never had full cessation of spont circulation, judging by his rapid return of mental status after 16 min of CPR. 3. Acute NSTEMI.? Based on the troponin bump, the EKG changes (loss of precordial R waves), and the marked loss of ventricular function on echo.? Started on Lipitor 80mg.? Tried beta willow but he was too unstable.? No anticoagulation or ASA bec of GI bleed. 4. Cardiogenic shock w shock liver.? Resolved, but his increased BNP and Tbili today suggest that maybe perfusion is worse, altho the echo doesn?t look like that. 5. Underlying ESRD on HD with refractory anasarca.? Daily dialysis this week. 6. Acute Respiratory Failure. ?Intubated during the CPR. ?Extubated without difficulty yesterday.? His mechanics are fine.? The only question is whether or not he can keep his airway clear. 7. Chronic large stage 4 sacral decubitus with chronic osteomyelitis, s/p diverting sigmoid loop colostomy. ?Woundvac is on. 8. S/P UGI bleed with hemorrhagic shock.? Continue high dose PPI.? Transfused to Hgb > 9. ?On Procrit. 9. Anoxic encephalopathy.? Fully resolved? 10. Coagulopathy.? 2? hepatic failure.? Vit K 50 mg total given.? INR improved as his liver improved w resolution of cardiogenic shock. 11. AFib w RVR.? Cardioverted to SR w amiodarone.? But converted back to Afib yesterday.? Gave him another loading dose of amiodarone.? At least now his HR is controlled. 12. ID: Continue meropenam and vanco for osteomyelitis, per ID recs. 13. Diabetes mellitus. SS insulin.? Started him on Lantus, but he had a number of low POCs, so the Lantus was d/c?d.? Continue just the SS insulin. 14. Anemia with acute Hb loss.? Source is undermined.? W/U (including hemolysis) in progress. 15. Thrombocytopenia.? Seems like consumption.? W/U in progress.? Heparin Ab negative.? No DVT on duplex scan yesterday. 16. Nutrition.? Advancing tube feeds.? On goal rate Nepro.? Ostomy is working great. Spoke with family again this afternoon.? I indicated that for the first time, it?s my opinion that he?s dying.? Not at all certain that he?ll survive the night.? They see it too.? They will opt for comfort measures, just need to let family know. Critical Care time (including mult family conversations): ?90+ min. Critical Care Time (minutes): 90 Physical Exam Vital Signs: Vital Signs: Last Vital Signs Temp 96.9 F 07/31/22 08:00 Pulse 88 07/31/22 16:00 Resp 18 07/31/22 16:00 BP 121/52 L 07/31/22 16:00 Pulse Ox 93 07/31/22 16:00 O2 Del Method 07/31/22 16:00 O2 Flow Rate 3 07/31/22 16:00 FiO2 35 07/30/22 19:00 BMI result Body Mass Index 25.4 Objective Data Labs CBC & Chem 7: 07/31/22 05:15 07/31/22 05:15 Labs: Laboratory Results - last 24 hr 07/30/22 07/30/22 07/30/22 15:57 18:05 23:47 WBC RBC Hgb Hct MCV MCH MCHC RDW Plt Count MPV Absolute Nucleated RBC Nucleated RBC % (auto) VBG pH VBG pCO2 VBG pO2 VBG HCO3 VBG O2 Saturation VBG Base Excess Sodium Potassium Chloride Carbon Dioxide Anion Gap BUN Creatinine Estim Creat Clear Calc Estimated GFR POC Glucose 113 124 H Random Glucose Lactic Acid Calcium Phosphorus Magnesium Total Bilirubin AST ALT Alkaline Phosphatase B-Natriuretic Peptide Total Protein Albumin Random Vancomycin 11.6 L 07/31/22 07/31/22 07/31/22 01:32 05:15 05:15 WBC 11.1 H RBC 2.98 L Hgb 9.1 L Hct 27.9 L MCV 93.6 MCH 30.5 MCHC 32.6 RDW 18.5 H Plt Count 68 L D MPV 12.5 H Absolute Nucleated RBC 0.050 H Nucleated RBC % (auto) 0.5 H VBG pH VBG pCO2 VBG pO2 VBG HCO3 VBG O2 Saturation VBG Base Excess Sodium 133 L Potassium 3.6 Chloride 98 Carbon Dioxide 13 L Anion Gap 26 H BUN 33 H Creatinine 1.83 H Estim Creat Clear Calc 48.6 Estimated GFR 37 POC Glucose 132 H Random Glucose 141 H Lactic Acid Calcium 7.9 L Phosphorus 3.3 Magnesium 2.0 Total Bilirubin 2.6 H AST 56 H ALT 113 H Alkaline Phosphatase 169 H B-Natriuretic Peptide Total Protein 5.2 L Albumin 3.2 L Random Vancomycin 07/31/22 07/31/22 07/31/22 05:15 05:15 05:27 WBC RBC Hgb Hct MCV MCH MCHC RDW Plt Count MPV Absolute Nucleated RBC Nucleated RBC % (auto) VBG pH 7.22 L VBG pCO2 29 VBG pO2 49 VBG HCO3 12 L VBG O2 Saturation 76.0 VBG Base Excess -13.6 Sodium Potassium Chloride Carbon Dioxide Anion Gap BUN Creatinine Estim Creat Clear Calc Estimated GFR POC Glucose Random Glucose Lactic Acid 1.6 Calcium Phosphorus Magnesium Total Bilirubin AST ALT Alkaline Phosphatase B-Natriuretic Peptide 4300 H Total Protein Albumin Random Vancomycin 07/31/22 07/31/22 07/31/22 06:10 11:01 11:48 WBC RBC Hgb Hct MCV MCH MCHC RDW Plt Count MPV Absolute Nucleated RBC Nucleated RBC % (auto) VBG pH VBG pCO2 VBG pO2 VBG HCO3 VBG O2 Saturation VBG Base Excess Sodium Potassium Chloride Carbon Dioxide Anion Gap BUN Creatinine Estim Creat Clear Calc Estimated GFR POC Glucose 131 H 165 H Random Glucose Lactic Acid Calcium Phosphorus Magnesium Total Bilirubin AST ALT Alkaline Phosphatase B-Natriuretic Peptide Total Protein Albumin Random Vancomycin 13.8 L Microbiology Microbiology Results: Microbiology 07/11/22 06:35 Blood - Arterial Line Blood Culture - Final No growth after 5 days. 07/11/22 06:35 Blood - Arterial Line Blood Culture - Final No growth after 5 days. Quality Stroke Does the patient have a stroke diagnosis?: No VTE Prior VTE?: No VTE Risk Level:: Medical - moderate - high VTE Device Contraindication: Treatment Not Indicated VTE Drug Contraindication: Treatment Not Indicated (contraindicated; UGI bleed) Critical Care Time Critical Care Time (minutes): 90
[2022-07-31] MEDS: Amiodarone HCL 900 MG in 0.9 % Sodium Chloride 500 ML 17.27 MG IVCONT (16:45)
--- NOTE | 2022-07-31 19:18 | PM.EVENT ---
Event Note Date of Service: 07/31/22 Event Note: Family made the decision to proceed with comfort measures. Supplemental oxygen is off. The patient's resp rate is slowing, HR is slowing, he looks very comfortable. Rhythm now looks like CHB with escape beats at 40/min. Family is at the bedside.
--- NOTE | 2022-07-31 19:33 | PM.EVENT ---
Event Note Date of Service: 07/31/22 Event Note: Pulsatile flow stopped at 1919 and respirations ceased. The pacemaker continued to spike. Time of is 1919. The family was at the bedside.
--- NOTE | 2022-07-31 20:25 | P.DS_ITS ---
DS: Providers Provider Date of Service: 07/31/22 Date of admission: 07/11/22 12:18 Date of discharge: 07/31/22 Primary care physician: Lamont Chris MD Admitting clinician: Emmanuel Mayen Attending physician on admission: Emmanuel Mayen Consults: 07/11/22 12:14 Consult to Nephrology Routine Consulting Provider: Juice Smith Reason for consultation: ESRD, needs dialysis today due to holiday 07/11/22 12:15 Consult to General Surgery Routine Consulting Provider: Saud Vidales Reason for consultation: stage IV sacral ulcer with osteomyelitis Consult to Infectious Diseases Routine Consulting Provider: Trupti Stein Reason for consultation: stage IV decubitus ulcer with recent osteomyelitis and sepsis 07/18/22 10:55 Consult to Cardiology Routine Consulting Provider: Femi Vallecillo Reason for consultation: Ventricular tachycardia Has provider been notified: No 07/23/22 22:44 Consult to Infectious Diseases Routine Consulting Provider: Trupti Stein Reason for consultation: osteomylitis Has provider been notified: Yes 07/23/22 22:46 Consult to Infectious Diseases Routine Consulting Provider: Trupti Stein Reason for consultation: osteo Has provider been notified: Yes 07/24/22 16:28 Consult to Gastroenterology Stat Consulting Provider: [facility] Gastroenterology Services Reason for consultation: Upper GI bleed 07/24/22 20:06 Consult to Wound Care Routine Consulting Provider: [facility] Wound Care Management Reason for consultation: ADVISE AND TREAT: DTI, SKIN TEARS, PI Has provider been notified: Yes Attending physician on discharge: Brant Rainey Discharging clinician: Quan Lanye DS: Diagnosis Discharge Diagnosis (1) Anemia: Status: Acute DS: Summary Hospital Course Hospital Course: ADMISSION / DISCHARGE SUMMARY 1. Cardiogenic ayaka in the setting of Underlying systolic ischemic CMOP. 2. S/p Cardiac arrest -- PEA arrest, 2? UGI bleed.? Likely never had full cessation of spont circulation, judging by his rapid return of mental status after 16 min of CPR. 3. Acute NSTEMI 4. Cardiogenic shock w shock liver.? 5. Underlying ESRD on HD with refractory anasarca.? 6. Acute Respiratory Failure. ? 7. Chronic large stage 4 sacral decubitus with chronic osteomyelitis, s/p diverting sigmoid loop colostomy. ?Woundvac. 8. S/P UGI bleed with hemorrhagic shock.? 9. Anoxic encephalopathy.? 10. Coagulopathy.? 2? hepatic failure.? 11. AFib w RVR.? Cardioverted 12. Chronic Osteomyelitis of Sacral pressure ulcer 13. Diabetes mellitus. 14. Anemia with acute Hb loss.? 15. Thrombocytopenia.? Seems like consumption.? 16. Chronic PCMS HPI / HOSPITAL COURSE: Mr. Andujar was transferred to the ICU since 07/24/2022 after PEA arrest on the floor. Today the family made the decision to proceed with comfort measures.? Supplemental oxygen is off.? The patient's resp rate is slowing, HR is slowing, he looks very comfortable.? Rhythm now looks like CHB with escape beats at 40/min.? Family is at the bedside. Pulsatile flow stopped at 1919 and respirations ceased.? The pacemaker continued to spike. Time of is 1919.? The family was at the bedside, he was comfortable. The patient is a 67-year-old gentleman with underlying diabetes mellitus, CKD and ischemic heart failure, s/p CABG about 10 years ago, followed by ICD placement.? Over last year or so, EF was reportedly about 40%.? 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 The diuretics no longer worked. He was admitted to [facility] for edema management in March.? Everything went downhill from there, and he was started on HD.? At some point he developed a decubitus ulcer.? He spent approximately 3 weeks [address] [facility] and was then transferred to [facility] for rehab.? After 3 weeks at [facility], he was admitted [place] [facility] [place] management of sepsis from the Decubitus ulcer.? Then went back to [facility] and since then, been back at [facility] [place] [facility] for further management of sepsis, the decubitus, and renal failure, including two surgeries for the decubitus, including a diverting colostomy done approximately about 8 weeks ago at [facility]. PMHx additionally includes ESRD on hemodialysis, protein calorie malnutrition, coronary artery disease status post CABG, ischemic cardiomyopathy with EF of 40-45%, status post AICD, PAfib, osteomyelitis of stage IV sacral decubitus ulcer, discoid lupus, and diverting colostomy. On 07/11/2022, he was BIBA to [facility] after developing chest pain. There was no evid ence of ACS. He was admitted to the medical floor for stage IV decubitus ulcer/osteomyelitis meeting sepsis criteria and ESRD, and given empiric abx.? His hospital course since then had been relatively stable, and his discharge was being planned.? He'd had a chronic leukocytosis over the last few months secondary to the osteomyelitis; his WBC remained elevated despite completing a prior course of IV antibiotics.? Most recently Dr. Stein recommended IV meropenem and PO zyvox for 6 weeks. He'd been followed by surgery s/p debridement; preventative measures in place with frequent turning, and appropriate bed. TPN was initiated to promote wound healing.? He was continued on his --Mon HD schedule. Due to vomiting, he had an xray that showed dilated stomach but no evidence of bowel obstruction. That clinically seems to have resolved. He had intermittent tachycardia and paroxysmal AFIB controlled with Metoprolol 25mg tid. On Jul 24, the bicarb level on his routine morning labs was low.? A lactate level was checked and came back very high.? While the patient was being evaluated he went into a PEA arrest.? CPR and ACLS administered.? He had ROSC after four rounds of epinephrine.? No shocks were required.? The duration of CPR was approximately 16 minutes.? He was intubated during the CPR and transferred to intensive care unit. He did show signs of awakening after CPR and required sedation.? NGT placement after tx to ICU showed blood.? Hb was 3.5 (c/w 8.1 one week prior).? He was vol resusc with blood and crystalloid.? Thru that nite he required Levophed and a bicarb drip and his lactates remained elevated in the 15 range. The following day (Jul 25), he had persistent metabolic and lactic acidoses, which began to improve in the evening.? His levophed requirement came down slowly and after propofol was turned off he had consistent eye opening to command.? FiO2 was down to 30%. EGD 07/25:? Erosive esophagitis; multiple chronic appearing 4-5 mm ulcers in the duodenal bulb; a 2 cm non-bleeding ulcer with yellow exudate at the base of the duodenal bulb with a visible vessel - one hemoclip was applied.? No blood or active bleeding seen in the UGI tract during EGD and no biopsies were obtained. Since then, his MS and hemodynamics have improved slowly but steadily.? We started him on dobutamine 25ug and his BP went up, Levophed requirement went down.? Dr. Vidales debrided the sacral wound at the bedside.? There was not much to debride, it was mostly bone.? No gross infection, no odor.? We put a Kaofeed tube down and started tube feeds.? We started him on amiodarone for heart rate control of AFib with RVR, and some hours later he converted to sinus tachycardia.? We tried slowing his heart rate with low dose esmolol, but his BP dropped precipitously, so that was abandoned.? Dr. Vidales put the wound VAC in his sacral wound on Jul 28. The patient continued to lose Hb and Mon this week, so I dropped a [place] sump .? There was no blood or coffee grounds in the yellow gastric aspirate.? Sent him to abdominal CT, there was no evidence of intraabdominal hemorrhage.? I asked Dr. Petersen to see him in regards to the ongoing blood loss and his thrombocytopenia.? We?ve sent labs off.? For now, plan is transfuse as needed. He came off Levophed on 07/28.? We dropped his dobutamine dose to 2ug that night, which had no effect on his HR or BP,? Hemodynamics were steady.? On re-echo Jul 29, the LV looked noticeably smaller (qualitatively) and wall motion was slightly but noticeably improved compared to the echo on 07/26.? Septum and apex still akinetic, but free wall was improved.? Overall EF no better than 20%.? MV had 1-2+ MR compared to only trace MR initially.? Still had 4+ TR.? And during HD, BP has been increasingly less labile. The patient was extubated on Jul 29 without incident.? His breathing was a bit raspy at the beginning, but cleared up yesterday. ?His dobutamine was subsequently tapered off.? Family decided against transfer to [facility]. Yesterday, the patient converted back to Afib.? BP dropped a little and he was restarted on very low dose Levophed.? On exam this morning after dialysis, he looked strikingly washed out.? Hardly able to talk.? WOB up a little, but trachea was clear.? Sat 95% on 3L NC; Sat 88% on room air.? Had an extended d/w family about where to go from here, what comfort measures would look like. Repeat echo:? LV volume looks maybe even a little smaller than last echo.? Wall motion looks slightly better.? Septum and apex still akinetic.? EF 15-20% max.? Trace MR, 4+ TR.? TV CWD measures about 3.0 m/sec.? IVC measures 2.5cm w minimal insp collapse. This afternoon, he looks worse.? Not even moving his lips.? Looks like he can?t even swallow.? Eyes are open, barely tracking.? Gurgling breathing.? He?s dying.? Even family is telling me that he looks like he?s dying.? RR about 24 on 3L NC, SpO2 94%.? HR 86, afib.? Still on the Amiod drip.? BP 121/52 on Levophed 0.05ug.? Chest is probably clear.? Abdomen benign with semiliquid stool in ostomy.? Still at least 2+ anasarca. LABORATORY DATA:? Below.? Notably, Hgb is stable, plat count up to 68K.? Tbili up to 2.6.? BNP up to 4300.? Lactic acid 1.6. Today the family made the decision to proceed with comfort measures.? Supplemental oxygen is off.? The patient's resp rate is slowing, HR is slowing, he looks very comfortable.? Rhythm now looks like CHB with escape beats at 40/min.? Family is at the bedside. Pulsatile flow stopped at 1919 and respirations ceased.? The pacemaker continued to spike. Time of is 1919.? The family was at the bedside, he was comfortable. Time Spent with Patient Time attestation: Total time managing care of this patient today ____ minutes. Discharge coordination time: Greater than 30 minutes Quality: Safe Use of Opioids Does Pt have an Active Cancer Diagnosis on the Problem List?: No Quality: Stroke Does the patient have a stroke diagnosis?: No Physical Exam Vital Signs: Vital Signs: Last Vital Signs Temp 96.9 F 07/31/22 08:00 Pulse 79 07/31/22 18:00 Resp 19 07/31/22 18:00 BP 97/44 L 07/31/22 18:00 Pulse Ox 92 07/31/22 18:00 O2 Del Method 07/31/22 18:00 O2 Flow Rate 6 07/31/22 18:00 FiO2 35 07/30/22 19:00 BMI result Body Mass Index 25.4 DS: Data Data Completed and Pending Labs on day of discharge: Laboratory Results - last 24 hr 07/30/22 07/31/22 07/31/22 23:47 01:32 05:15 WBC 11.1 H RBC 2.98 L Hgb 9.1 L Hct 27.9 L MCV 93.6 MCH 30.5 MCHC 32.6 RDW 18.5 H Plt Count 68 L D MPV 12.5 H Absolute Nucleated RBC 0.050 H Nucleated RBC % (auto) 0.5 H VBG pH VBG pCO2 VBG pO2 VBG HCO3 VBG O2 Saturation VBG Base Excess Sodium Potassium Chloride Carbon Dioxide Anion Gap BUN Creatinine Estim Creat Clear Calc Estimated GFR POC Glucose 124 H 132 H Random Glucose Lactic Acid Calcium Phosphorus Magnesium Total Bilirubin AST ALT Alkaline Phosphatase B-Natriuretic Peptide Total Protein Albumin Random Vancomycin 07/31/22 07/31/22 07/31/22 05:15 05:15 05:15 WBC RBC Hgb Hct MCV MCH MCHC RDW Plt Count MPV Absolute Nucleated RBC Nucleated RBC % (auto) VBG pH VBG pCO2 VBG pO2 VBG HCO3 VBG O2 Saturation VBG Base Excess Sodium 133 L Potassium 3.6 Chloride 98 Carbon Dioxide 13 L Anion Gap 26 H BUN 33 H Creatinine 1.83 H Estim Creat Clear Calc 48.6 Estimated GFR 37 POC Glucose Random Glucose 141 H Lactic Acid 1.6 Calcium 7.9 L Phosphorus 3.3 Magnesium 2.0 Total Bilirubin 2.6 H AST 56 H ALT 113 H Alkaline Phosphatase 169 H B-Natriuretic Peptide 4300 H Total Protein 5.2 L Albumin 3.2 L Random Vancomycin 07/31/22 07/31/22 07/31/22 05:27 06:10 11:01 WBC RBC Hgb Hct MCV MCH MCHC RDW Plt Count MPV Absolute Nucleated RBC Nucleated RBC % (auto) VBG pH 7.22 L VBG pCO2 29 VBG pO2 49 VBG HCO3 12 L VBG O2 Saturation 76.0 VBG Base Excess -13.6 Sodium Potassium Chloride Carbon Dioxide Anion Gap BUN Creatinine Estim Creat Clear Calc Estimated GFR POC Glucose 131 H Random Glucose Lactic Acid Calcium Phosphorus Magnesium Total Bilirubin AST ALT Alkaline Phosphatase B-Natriuretic Peptide Total Protein Albumin Random Vancomycin 13.8 L 07/31/22 11:48 WBC RBC Hgb Hct MCV MCH MCHC RDW Plt Count MPV Absolute Nucleated RBC Nucleated RBC % (auto) VBG pH VBG pCO2 VBG pO2 VBG HCO3 VBG O2 Saturation VBG Base Excess Sodium Potassium Chloride Carbon Dioxide Anion Gap BUN Creatinine Estim Creat Clear Calc Estimated GFR POC Glucose 165 H Random Glucose Lactic Acid Calcium Phosphorus Magnesium Total Bilirubin AST ALT Alkaline Phosphatase B-Natriuretic Peptide Total Protein Albumin Random Vancomycin Discharge Plan Discharge Anticipated Discharge Date/Time: 07/31/22 20:27 Patient Disposition: Discharge Diagnosis: Sepsis from decub ulcer, CKD5, chronic hyponatremia Referrals: Lamont Chris MD [Primary Care Provider] - 1 Week Discharge Medications: New linezolid 600 mg Tablet 600 mg PO Q12H Qty: 80 0RF meropenem 500 mg Recon Soln 500 mg IV Q24H Qty: 40 0RF Continued primidone 50 mg Tablet 50 mg PO BEDTIME atorvastatin 80 mg Tablet 80 mg PO BEDTIME sennosides 8.6 mg Tablet 17.2 mg PO DAILY insulin glargine 100 unit/mL Solution 25 unit SUBCUT DAILY midodrine 5 mg Tablet 5 mg PO TUTHSA@0900 Rx Instructions: Give a total dose of 10 mg prior to dialysis midodrine 5 mg Tablet 5 mg PO TID@0900,1200,1800 Rx Instructions: do not give last dose of day after 6PM or within 4 hrs of bedtime melatonin 3 mg Tablet 3 mg PO BEDTIME aspirin 81 mg Tablet,Delayed Release (Dr/Ec) 81 mg PO DAILY hydromorphone 2 mg Tablet 2 mg PO Q12H PRN (Reason: Pain) ascorbic acid (vitamin C) 500 mg Tablet 500 mg PO BID diphenhydramine HCl [Benadryl] 25 mg Capsule 25 mg PO TID PRN (Reason: Itching) nitroglycerin [Nitrostat] 0.4 mg Tablet, Sublingual 0.4 mg SUBLINGUAL Q5M PRN (Reason: Chest Pain) Rx Instructions: do not exceed 3 doses per episode docusate sodium 100 mg Capsule 100 mg PO DAILY metoprolol succinate 25 mg Tablet Extended Release 24 Hr 25 mg PO DAILY Santyl 250 unit/gram Ointment 1 appl TOPICAL BID B complex with C 20-folic acid 1 mg Capsule 1 cap PO DAILY Acidophilus Capsule 1 cap PO DAILY fluticasone propionate 50 mcg/actuation [place],Suspension 1 spray INTRANASAL DAILY Rx Instructions: administer into each nostril epoetin ciara 10,000 unit/mL Solution 10,000 unit IV TUTHSA Rx Instructions: Give during diaylsis oxycodone 5 mg Tablet 5 mg PO Q6H PRN (Reason: Pain) midodrine 10 mg Tablet 10 mg PO TUTHSA PRN (Reason: LOW BLOOD PRESSURE) Rx Instructions: GIVE DURING DIALYSIS IF LOW BP insulin lispro 100 unit/mL Insulin Pen 1 sliding scale dose SUBCUT QIDACHS ezetimibe 10 mg Tablet 10 mg PO DAILY cholestyramine (with sugar) 4 gram Powder 4 g PO BIDWM Rx Instructions: administer w/meal; avoid other meds within 1hr before or 4-6hr after dose fentanyl 12 mcg/hr Patch 72 Hour 1 patch TRANSDERMAL Q72H calcium carbonate-vitamin D3 600-125 mg-unit Tablet 1 tab PO DAILY Eliquis 5 mg tablet 1 tab PO BID Diet: Advance to usual diet Activity on Discharge: As tolerated Care Plan Goals: Full recovery from sepsis Health Concerns: Sepsis due to decub ulcer, hyponatremia that is chronic, ESRD Plan of Treatment: To complete 6 weeks course of Meropenem and Zyvox continue dialysis as usual Assessment: as above
--- NOTE | 2022-07-31 23:26 | PC.NURSE ---
Assumed care at 07:00. Patient was initially able to nod head and shake head to endorse or deny pain or comfort, but was in mid afternoon not able to, due to more withdrawn mental status. Similarly, initially was following commands, but by noon was unable to follow commands. Started day with early dialysis, fairly well tolerated, had 3 L off, needed slight uptitiration of levophed from 0.03 to 0,09 and down to 0.07. Required 2 amps bicarb, followed by 150 mEq bicarb gtt and bicarb tablets via Keofeed tube. Had been on 3 lpm initially via NC, and this was uptitirated to 6 lpm by physician. Patient wound dressings changed to limbs using xeroform and kerlix dressings. Patient given reprieve from tomi wraps on limbs ok per MD. Patient was tolerating TF at 65 cc/hour well. Patient colostomy with dark formed stool, MD aware. Stoma red, beefy, and prolapsed, and MD aware. Patient was in a-fib with frequent PVCs, one run of 4 beats coupling PVCs, and controlled rate in 80's and some occasional AV pacing, and was on amniodarone gtt all day rate of 0.5. Patient family in today at bedside all day, with large extended family. Patient family had goals of care meeting with provider, decision made to change to [employer]INE[employer] status. Patient with minimal IV push pain medication requirements to maintain comfort, well tolerated. Medications and oxygen gradually stopped by MD in authorization of patient's surrogate decisionmaker. Patient maintained comfort, and passed at 19:20. Patient was declined for all donation by [facility] dealer compliance representative, Jordana, with confirmation number #[id number]
[2022-08-02 08:54] LABS: IgA 236 mg/dL (70-320); IgG 692 mg/dL (600-1540); IgM 30 mg/dL (50-300)
== END 2022-07-31 19:20 | disposition expired | DRG 853 ==
LOC: HO.ED 09:04 → HO.EDOVER 12:26 → HO.IMC 15:10 → HO.ICU 07-24 13:49
PROVIDERS: Anesthesiology; Family Medicine; Internal Medicine; Internal Medicine Gastroenterology; Internal Medicine Medical Oncology; Internal Medicine Nephrology; Nurse Practitioner Family; Physician Assistant Medical; Registered Nurse Community Health; Admitting Provider Physician Assistant; Emergency Provider Student in an Organized Health Care Education/Training Program; PCP Internal Medicine; Visit Provider Internal Medicine Pulmonary Disease
PROC: 0DJ08ZZ Inspection of Upper Intestinal Tract, Via Natural or Artificial Opening Endoscopic (ICD-10-PCS; CPT 43235; principal; 2022-07-25 16:00)
DX: A41.9 Sepsis, unspecified organism (principal); I21.4 Non-ST elevation (NSTEMI) myocardial infarction; J96.01 Acute respiratory failure with hypoxia; K22.11 Ulcer of esophagus with bleeding; L89.154 Pressure ulcer of sacral region, stage 4; N18.6 End stage renal disease; K25.4 Chronic or unspecified gastric ulcer with hemorrhage; K26.4 Chronic or unspecified duodenal ulcer with hemorrhage; I50.22 Chronic systolic (congestive) heart failure; E87.1 Hypo-osmolality and hyponatremia; E44.0 Moderate protein-calorie malnutrition; M46.28 Osteomyelitis of vertebra, sacral and sacrococcygeal region; I47.1 Supraventricular tachycardia; E87.20 Acidosis, unspecified; D62 Acute posthemorrhagic anemia; K94.09 Other complications of colostomy; D68.9 Coagulation defect, unspecified; I25.10 Atherosclerotic heart disease of native coronary artery without angina pectoris; L93.0 Discoid lupus erythematosus; E78.5 Hyperlipidemia, unspecified; E11.69 Type 2 diabetes mellitus with other specified complication; I48.0 Paroxysmal atrial fibrillation; I95.2 Hypotension due to drugs; E11.22 Type 2 diabetes mellitus with diabetic chronic kidney disease; D63.1 Anemia in chronic kidney disease; E11.40 Type 2 diabetes mellitus with diabetic neuropathy, unspecified; T46.3X5A Adverse effect of coronary vasodilators, initial encounter; I46.9 Cardiac arrest, cause unspecified; E11.65 Type 2 diabetes mellitus with hyperglycemia; E83.42 Hypomagnesemia; Z95.1 Presence of aortocoronary bypass graft; R57.8 Other shock; I95.3 Hypotension of hemodialysis; D69.6 Thrombocytopenia, unspecified; T85.9XXA Unspecified complication of internal prosthetic device, implant and graft, initial encounter; Y74.1 Therapeutic (nonsurgical) and rehabilitative general hospital and personal-use devices associated with adverse incidents; Z20.822 Contact with and (suspected) exposure to COVID-19; Z87.891 Personal history of nicotine dependence; Z99.2 Dependence on renal dialysis; Z74.01 Bed confinement status; Z88.1 Allergy status to other antibiotic agents; Z88.2 Allergy status to sulfonamides; Z95.810 Presence of automatic (implantable) cardiac defibrillator; Z68.25 Body mass index [BMI] 25.0-25.9, adult; Z79.4 Long term (current) use of insulin; Z79.01 Long term (current) use of anticoagulants; Z79.51 Long term (current) use of inhaled steroids; Z79.82 Long term (current) use of aspirin; Z79.899 Other long term (current) drug therapy
CPT/HCPCS: 36415; 71045; 71250; 71260; 74018; 74176; 74177; 80048; 80053; 80076; 80162; 80202; 82009; 82040; 82784; 82803; 82947; 83010; 83036; 83605; 83615; 83735; 83880; 84100; 84478; 84484; 85014; 85018; 85025; 85027; 85045; 85379; 85384; 85610; 85652; 85730; 86022; 86140; 86334; 86704; 86706; 86803; 86850; 86880; 86900; 86901; 86923; 87040; 87338; 87340; 87635; 90935; 90999; 93005; 93306; 93970; 94002; 94003; 94799; 97110; 97163; 97167; 97530; 99213; 99285; C1758; J0171; J0282; J0330; J0610; J0692; J0696; J0885; J1160; J1170; J1205; J1250; J1940; J2185; J2270; J2370; J2405; J3010; J3370; J3430; J3475; P9016; P9017; P9035; P9037; P9047; P9073; Q9967

== ENCOUNTER 2022-07-25 10:10 | Outpatient (REF) | payer MEDICARE, OTHER, SELFPAY | END 2022-07-25 10:11 | disposition home or self-care (01) | LOC: HO.MMNH1L 10:10 | PROVIDERS: Visit Provider Family Medicine | DX: Z48.817 Encounter for surgical aftercare following surgery on the skin and subcutaneous tissue (principal); L89.154 Pressure ulcer of sacral region, stage 4 | CPT/HCPCS: J0171 ==